=== PATIENT | female | born 1955 | race Caucasian/White ===

== ENCOUNTER → 2017-05-28 11:05 | Outpatient (CLI) | payer OTHER, SELFPAY ==
[2017-05-28 12:26] LABS: Absolute Lymphocyte Count 1.83 X10^3/ul (0.83-4.51); Absolute Neutrophil Count 3.4 X10^3/uL (2.0-7.7); Basophil# 0.02 X10^3/uL; Basophil% 0.3 % (0-1); Eosinophil# 0.16 X10^3/uL; Eosinophils% 2.8 % (0-5); Hematocrit 38.4 % (37-47); Hemoglobin 12.3 g/dl (12.0-15.0); Lymphocyte # 1.83 X10^3/ul (4.0); Lymphocyte % 31.8 % (19-41); Mean Corpuscular Hgb 28.9 pg (27.0-32.0); Mean Corpuscular Volume 90.4 fL (81-99); Mean Platelet Vol. 10.1 fl (6.2-12.0); Monocyte# 0.36 X10^3/uL; Monocyte% 6.3 % (0-10); Neutrophil # 3.38 X10^3/uL (2.7-7.7); Neutrophil % 58.6 % (47-70); Platelet Count 305 K/mm3 (150-450); RBC Distribution Width CV 13.3 % (11.6-14.6); RBC Distribution Width SD 43.5 fl (35.1-43.9); Red Blood Count 4.25 M/mm3 (4.2-5.4); White Blood Count 5.8 K/mm3 (4.4-11.0)
[2017-05-28 12:30] LABS: POSITIVE COUNT NO; POSITIVE DIFFERENTIAL NO; POSITIVE MORPHOLOGY NO
[2017-05-28 12:47] LABS: AST(SGOT) 21 U/L (15-37); Alanine Aminotransfer ALT/SGPT 30 U/L (13-56); Albumin, Serum 3.9 g/dL (3.2-5.0); Alkaline Phosphatase 104 U/L (45-117); Anion Gap 8 (5-15); BUN 14 mg/dL (7-18); BUN/Creat Ratio 17.9 RATIO (10-20); Calcium,Total 8.9 mg/dL (8.5-10.1); Chloride 99 mmol/L (98-107); Creatinine, Serum 0.78 mg/dL (0.55-1.02); EST Glomerular Filtration Rate 79 mL/min (>60); Est Glom Filt Rate - Afr Amer 95 mL/min (>60); Globulin 3.9 g/dL (2.2-4.2); Glucose 163 mg/dL (74-106); Potassium 3.9 mmol/L (3.5-5.1); Protein, Total 7.8 g/dL (6.4-8.2); Sodium Level 136 mmol/L (136-145)
== END ==
PROVIDERS: Family Provider Internal Medicine; PCP Internal Medicine; Visit Provider Internal Medicine Rheumatology
DX: M06.4 Inflammatory polyarthropathy (principal); R76.8 Other specified abnormal immunological findings in serum; M17.0 Bilateral primary osteoarthritis of knee; M75.41 Impingement syndrome of right shoulder; I10 Essential (primary) hypertension; E11.9 Type 2 diabetes mellitus without complications; E78.5 Hyperlipidemia, unspecified
CPT/HCPCS: 36415; 80053; 85025

== ENCOUNTER → 2017-11-16 08:47 | Outpatient (CLI) | payer OTHER, SELFPAY ==
[2017-11-16 11:03] LABS: Albumin, Serum 3.5 g/dL (3.2-5.0); BUN 12 mg/dL (7-18); BUN/Creat Ratio 16.4 RATIO (10-20); Creatinine, Serum 0.73 mg/dL (0.55-1.02); EST Glomerular Filtration Rate 85 mL/min (>60); Est Glom Filt Rate - Afr Amer 103 mL/min (>60); Glucose 103 mg/dL (74-106); Protein, Total 7.3 g/dL (6.4-8.2)
[2017-11-16 11:04] LABS: ALB/GLOB Ratio 0.9 RATIO (0.9-2.4); AST(SGOT) 28 U/L (15-37); Alanine Aminotransfer ALT/SGPT 31 U/L (13-56); Alkaline Phosphatase 91 U/L (45-117); Anion Gap 10 (5-15); Calcium,Total 8.6 mg/dL (8.5-10.1); Chloride 104 mmol/L (98-107); Globulin 3.8 g/dL (2.2-4.2); Potassium 3.9 mmol/L (3.5-5.1); Sodium Level 142 mmol/L (136-145)
[2017-11-16 12:38] LABS: Absolute Lymphocyte Count 1.38 X10^3/ul (0.83-4.51); Absolute Neutrophil Count 2.9 X10^3/uL (2.0-7.7); Basophil# 0.03 X10^3/uL; Basophil% 0.6 % (0-1); Eosinophil# 0.17 X10^3/uL; Eosinophils% 3.5 % (0-5); Hematocrit 35.5 % (37-47); Hemoglobin 11.2 g/dl (12.0-15.0); Lymphocyte # 1.38 X10^3/ul (4.0); Lymphocyte % 28.3 % (19-41); Mean Corp Hgb Conc 31.5 g/gl (32-36); Mean Corpuscular Hgb 28.1 pg (27.0-32.0); Mean Corpuscular Volume 89.2 fL (81-99); Mean Platelet Vol. 10.6 fl (6.2-12.0); Monocyte# 0.42 X10^3/uL; Monocyte% 8.6 % (0-10); Neutrophil # 2.88 X10^3/uL (2.7-7.7); Platelet Count 309 K/mm3 (150-450); RBC Distribution Width CV 13.6 % (11.6-14.6); RBC Distribution Width SD 44.7 fl (35.1-43.9); Red Blood Count 3.98 M/mm3 (4.2-5.4); White Blood Count 4.9 K/mm3 (4.4-11.0)
[2017-11-16 12:46] LABS: POSITIVE COUNT NO; POSITIVE DIFFERENTIAL NO; POSITIVE MORPHOLOGY NO
== END ==
PROVIDERS: Family Provider Internal Medicine; PCP Internal Medicine; Visit Provider Internal Medicine Rheumatology
DX: M06.4 Inflammatory polyarthropathy (principal); R76.8 Other specified abnormal immunological findings in serum; M17.0 Bilateral primary osteoarthritis of knee; M75.41 Impingement syndrome of right shoulder; I10 Essential (primary) hypertension; E11.9 Type 2 diabetes mellitus without complications; E78.5 Hyperlipidemia, unspecified
CPT/HCPCS: 36415; 80053; 85025

== ENCOUNTER → 2018-05-17 08:04 | Outpatient (CLI) | payer OTHER, SELFPAY ==
[2018-05-17 10:16] LABS: Absolute Lymphocyte Count 1.38 X10^3/ul (0.83-4.51); Absolute Neutrophil Count 3.6 X10^3/uL (2.0-7.7); Basophil# 0.05 X10^3/uL; Basophil% 0.9 % (0-1); Eosinophil# 0.15 X10^3/uL; Eosinophils% 2.6 % (0-5); Hematocrit 35.9 % (37-47); Hemoglobin 11.2 g/dl (12.0-15.0); Lymphocyte # 1.38 X10^3/ul (4.0); Lymphocyte % 24.3 % (19-41); Mean Corp Hgb Conc 31.2 g/gl (32-36); Mean Corpuscular Hgb 27.5 pg (27.0-32.0); Mean Corpuscular Volume 88.2 fL (81-99); Mean Platelet Vol. 10.3 fl (6.2-12.0); Monocyte# 0.44 X10^3/uL; Monocyte% 7.8 % (0-10); Neutrophil # 3.64 X10^3/uL (2.7-7.7); Neutrophil % 64.2 % (47-70); Platelet Count 302 K/mm3 (150-450); RBC Distribution Width CV 14.2 % (11.6-14.6); RBC Distribution Width SD 45.8 fl (35.1-43.9); Red Blood Count 4.07 M/mm3 (4.2-5.4); White Blood Count 5.7 K/mm3 (4.4-11.0)
[2018-05-17 10:21] LABS: POSITIVE COUNT NO; POSITIVE DIFFERENTIAL NO; POSITIVE MORPHOLOGY NO
[2018-05-17 10:41] LABS: ALB/GLOB Ratio 0.9 RATIO (0.9-2.4); AST(SGOT) 22 U/L (15-37); Alanine Aminotransfer ALT/SGPT 25 U/L (13-56); Albumin, Serum 3.7 g/dL (3.2-5.0); Alkaline Phosphatase 101 U/L (45-117); Anion Gap 11 (5-15); BUN 12 mg/dL (7-18); BUN/Creat Ratio 17.9 RATIO (10-20); Calcium,Total 8.8 mg/dL (8.5-10.1); Chloride 104 mmol/L (98-107); Creatinine, Serum 0.67 mg/dL (0.55-1.02); EST Glomerular Filtration Rate 94 mL/min (>60); Est Glom Filt Rate - Afr Amer 114 mL/min (>60); Globulin 3.9 g/dL (2.2-4.2); Glucose 143 mg/dL (74-106); Potassium 3.8 mmol/L (3.5-5.1); Protein, Total 7.6 g/dL (6.4-8.2); Sodium Level 141 mmol/L (136-145)
== END ==
PROVIDERS: Family Provider Internal Medicine; PCP Internal Medicine; Referring Provider Internal Medicine Rheumatology; Visit Provider Internal Medicine Rheumatology
DX: M06.4 Inflammatory polyarthropathy (principal); R76.8 Other specified abnormal immunological findings in serum; M17.0 Bilateral primary osteoarthritis of knee; M75.41 Impingement syndrome of right shoulder; I10 Essential (primary) hypertension; E11.9 Type 2 diabetes mellitus without complications; E78.5 Hyperlipidemia, unspecified
CPT/HCPCS: 36415; 80053; 85025

== ENCOUNTER → 2018-06-03 16:15 | Outpatient (CLI) | payer OTHER, SELFPAY ==
--- NOTE | 2018-06-03 16:17 | US_ITS ---
STUDY: RENAL ULTRASOUND - COMPLETE REASON FOR EXAM: Female, 62 years old. Difficulty voiding TECHNIQUE: Ultrasound evaluation of the kidneys was performed with real-time and static killian-scale imaging. COMPARISON: None. FINDINGS: RIGHT KIDNEY: Normal location of the right kidney, which is normal in size. The right kidney measures 12.6 x 4.8 x 5 cm. There is a normal cortex of the right kidney. The renal cortex measures 1.4 cm. There is no right renal mass or cyst. There are no right renal calculi. There is no right hydronephrosis. DISTAL RIGHT URETER: There is non-visualization of the distal right ureter. There is no demonstrated right ureterovesical junction calculus. There is a visualized right ureteral jet. LEFT KIDNEY: Normal location of the left kidney, which is normal in size. The left kidney measures 14.6 x 4.6 x 5.4 cm. There is a normal cortex of the left kidney. The renal cortex measures cm. There is no left renal mass or cyst. There does appear to be hypertrophied column of Kb which is normal developmental variant There are no left renal calculi. There is no left hydronephrosis. DISTAL LEFT URETER: There is non-visualization of the distal left ureter. There is no demonstrated left ureterovesical junction calculus. There is a visualized left ureteral jet. BLADDER: The distended urinary bladder has a volume of 329.75 ml. The empty urinary bladder has a volume of 20.9 ml. There is a normal wall thickness of the distended urinary bladder. There is a questionable nodule versus ureterocele on the left. This may be better assessed with cystoscopy or CT for further evaluation if clinically warranted There are no demonstrated bladder calculi. US/Kidney and Bladder IMPRESSION: Possible prominent column of Kb seen in left kidney which may be better assessed with CAT scan if clinically indicated Cannot exclude tiny left bladder mass versus ureterocele Electronically Signed: Frederick Reyna MD at 22:34 EST , Service support ,
== END ==
PROVIDERS: Family Provider Internal Medicine; PCP Internal Medicine; Referring Provider Urology; Visit Provider Urology
DX: R39.16 Straining to void (principal)
CPT/HCPCS: 76770

== ENCOUNTER 2018-07-20 17:30 | Emergency (ER) | payer OTHER, SELFPAY ==
[2018-07-20 17:33] VITALS: BP 193/92; PULSE 89; RESP 18; TEMP 36.7; O2SAT 98; BMI 32.3
[2018-07-20] MEDS: Diphth,Pertuss(Acell),Tet Vac 0.5 ML Vial IM (18:07)
--- NOTE | 2018-07-20 19:04 | ED.VISSUMM ---
- ER Visit Summary Date of Service: 07/20/18 Chief Complaint: Left hand laceration History of Present Illness: The patient is a 63 F lacerated dorsal left hand 1530 while using head tremors. Tetanus in 2011. No loss of function. Baby aspirin. Bleeding controlled. No other injuries. Physical Examination: General: Alert and oriented ?3, no acute distress HEENT: Normocephalic, atraumatic. Moist mucosa membranes Neck: supple, nontender. Cardiovascular: Regular rate and rhythm, no murmurs Respiratory: Normal breath sounds, symmetric, no distress Abdomen: Soft, nontender, nondistended Extremities: Nontender, no edema, pulses intact ?4. Full range of motion of all phalanges left hand. Neuro: no focal neurological deficits. Skin: To have sending partial laceration left dorsal first webspace with subcu exposure. No foreign bodies. No active bleeding. Test Results: [] Emergency Department Course and Treatment: Tetanus updated. Laceration repaired using a total of 4, 5-0 nylon sutures. Good approximation. Wound care discussed. Sutures removed as an outpatient next 10-14 days. All questions were answered. Treatment Plan: [] Disposition: Discharge Impression: 1. Left hand laceration status post repair 2. Tetanus update This note was generated with [employer] dictation software. It may contain incorrect words, spelling, and punctuation that were not noted in review of the chart prior to signing ED Disposition - Plan for ED Patient: Disposition: Home or Assisted Living Diagnosis: Laceration of left hand Instructions: ED Laceration Hand Referrals: Kelly Borden MD [Primary Care Provider] - 10-14 Days suture removal
[2018-07-20] MEDS: BACITRACIN 15 GM Tube 1 APPLIC TOPICAL (19:25)
[2018-07-20 19:26] VITALS: BP 165/76; PULSE 82; RESP 18; O2SAT 97
== END 2018-07-20 19:28 | disposition home or self-care (01) ==
PROVIDERS: Emergency Provider Emergency Medicine; Family Provider Internal Medicine; PCP Internal Medicine
DX: S61.412A Laceration without foreign body of left hand, initial encounter (principal); W26.8XXA Contact with other sharp object(s), not elsewhere classified, initial encounter; Y93.89 Activity, other specified; Y92.9 Unspecified place or not applicable; I10 Essential (primary) hypertension; E11.9 Type 2 diabetes mellitus without complications; M06.9 Rheumatoid arthritis, unspecified; Z79.82 Long term (current) use of aspirin; Z79.4 Long term (current) use of insulin; Z79.84 Long term (current) use of oral hypoglycemic drugs; Z79.899 Other long term (current) drug therapy
CPT/HCPCS: 12001; 90715; 99285

== ENCOUNTER → 2018-11-24 08:25 | Outpatient (CLI) | payer OTHER, SELFPAY ==
[2018-11-24 10:04] LABS: Absolute Lymphocyte Count 1.43 X10^3/uL (0.83-4.51); Absolute Neutrophil Count 3.6 X10^3/uL (2.0-7.7); Basophil# 0.05 X10^3/uL; Basophil% 0.9 % (0-1); Eosinophil# 0.22 X10^3/uL; Eosinophils% 3.8 % (0-5); Hematocrit 35.1 % (37-47); Hemoglobin 11.1 g/dL (12.0-15.0); Lymphocyte # 1.43 X10^3/ul (4.0); Lymphocyte % 24.6 % (19-41); Mean Corp Hgb Conc 31.6 g/dL (32-36); Mean Corpuscular Hgb 27.3 pg (27.0-32.0); Mean Corpuscular Volume 86.2 fL (81-99); Mean Platelet Vol. 10.3 fl (6.2-12.0); Monocyte# 0.47 X10^3/uL; Monocyte% 8.1 % (0-10); NRBC Flagged by Analyzer 0 % (0-5); Neutrophil # 3.63 X10^3/uL (2.7-7.7); Neutrophil % 62.4 % (47-70); Platelet Count 346 K/mm3 (150-450); RBC Distribution Width CV 14.8 % (11.6-14.6); RBC Distribution Width SD 46.7 fl (35.1-43.9); Red Blood Count 4.07 M/mm3 (4.2-5.4); White Blood Count 5.8 K/mm3 (4.4-11.0)
[2018-11-24 10:32] LABS: ALB/GLOB Ratio 0.9 RATIO (0.9-2.4); AST(SGOT) 20 U/L (15-37); Alanine Aminotransfer ALT/SGPT 31 U/L (13-56); Albumin, Serum 3.8 g/dL (3.2-5.0); Alkaline Phosphatase 102 U/L (45-117); Anion Gap 8 (5-15); BUN 13 mg/dL (7-18); BUN/Creat Ratio 17.3 RATIO (10-20); Chloride 101 mmol/L (98-107); Creatinine, Serum 0.75 mg/dL (0.55-1.02); EST Glomerular Filtration Rate 82 mL/min (>60); Est Glom Filt Rate - Afr Amer 100 mL/min (>60); Globulin 4.1 g/dL (2.2-4.2); Glucose 152 mg/dL (74-106); Potassium 4.1 mmol/L (3.5-5.1); Protein, Total 7.9 g/dL (6.4-8.2); Sodium Level 138 mmol/L (136-145)
== END ==
PROVIDERS: Family Provider Internal Medicine; PCP Internal Medicine; Referring Provider Internal Medicine Rheumatology; Visit Provider Internal Medicine Rheumatology
DX: M06.4 Inflammatory polyarthropathy (principal); R76.8 Other specified abnormal immunological findings in serum; M17.0 Bilateral primary osteoarthritis of knee; M75.41 Impingement syndrome of right shoulder; I10 Essential (primary) hypertension; E11.9 Type 2 diabetes mellitus without complications; E78.5 Hyperlipidemia, unspecified
CPT/HCPCS: 36415; 80053; 85025

== ENCOUNTER → 2019-05-29 07:24 | Outpatient (CLI) | payer OTHER, SELFPAY ==
[2019-05-29 10:19] LABS: Absolute Lymphocyte Count 1.49 X10^3/uL (0.83-4.51); Absolute Neutrophil Count 3.1 X10^3/uL (2.0-7.7); Basophil# 0.05 X10^3/uL; Eosinophil# 0.16 X10^3/uL; Eosinophils% 3.1 % (0-5); Hematocrit 34.4 % (37-47); Hemoglobin 10.9 g/dL (12.0-15.0); Lymphocyte # 1.49 X10^3/ul (4.0); Lymphocyte % 28.4 % (19-41); Mean Corp Hgb Conc 31.7 g/dL (32-36); Mean Corpuscular Volume 85.1 fL (81-99); Mean Platelet Vol. 10.4 fl (6.2-12.0); Monocyte# 0.43 X10^3/uL; Monocyte% 8.2 % (0-10); NRBC Flagged by Analyzer 0 % (0-5); Neutrophil % 59.1 % (47-70); Platelet Count 323 K/mm3 (150-450); RBC Distribution Width CV 14.7 % (11.6-14.6); RBC Distribution Width SD 45.6 fl (35.1-43.9); Red Blood Count 4.04 M/mm3 (4.2-5.4); White Blood Count 5.2 K/mm3 (4.4-11.0)
[2019-05-29 10:46] LABS: AST(SGOT) 20 U/L (15-37); Alanine Aminotransfer ALT/SGPT 26 U/L (13-56); Albumin, Serum 3.7 g/dL (3.2-5.0); Alkaline Phosphatase 85 U/L (45-117); Anion Gap 5 (5-15); BUN 9 mg/dL (7-18); BUN/Creat Ratio 11.6 RATIO (10-20); Calcium,Total 9.3 mg/dL (8.5-10.1); Chloride 107 mmol/L (98-107); Creatinine, Serum 0.77 mg/dL (0.55-1.02); EST Glomerular Filtration Rate 80 mL/min (>60); Est Glom Filt Rate - Afr Amer 96 mL/min (>60); Globulin 3.8 g/dL (2.2-4.2); Glucose 109 mg/dL (74-106); Potassium 3.7 mmol/L (3.5-5.1); Protein, Total 7.5 g/dL (6.4-8.2); Sodium Level 141 mmol/L (136-145)
== END ==
PROVIDERS: PCP Internal Medicine; Referring Provider Internal Medicine Rheumatology; Visit Provider Internal Medicine Rheumatology
DX: M06.4 Inflammatory polyarthropathy (principal); R76.8 Other specified abnormal immunological findings in serum; M17.0 Bilateral primary osteoarthritis of knee; M75.41 Impingement syndrome of right shoulder; I10 Essential (primary) hypertension; E11.9 Type 2 diabetes mellitus without complications; E78.5 Hyperlipidemia, unspecified
CPT/HCPCS: 36415; 80053; 85025

== ENCOUNTER → 2019-11-23 07:37 | Outpatient (CLI) | payer OTHER, SELFPAY ==
[2019-11-23 10:05] LABS: Absolute Lymphocyte Count 1.88 X10^3/uL (0.83-4.51); Absolute Neutrophil Count 4.7 X10^3/uL (2.0-7.7); Basophil# 0.05 X10^3/uL; Basophil% 0.7 % (0-1); Eosinophil# 0.16 X10^3/uL; Eosinophils% 2.1 % (0-5); Hematocrit 41.7 % (37-47); Hemoglobin 13.5 g/dL (12.0-15.0); Lymphocyte # 1.88 X10^3/ul (4.0); Lymphocyte % 24.8 % (19-41); Mean Corp Hgb Conc 32.4 g/dL (32-36); Mean Corpuscular Hgb 29.8 pg (27.0-32.0); Mean Corpuscular Volume 92.1 fL (81-99); Mean Platelet Vol. 10.5 fl (6.2-12.0); Monocyte# 0.72 X10^3/uL; Monocyte% 9.5 % (0-10); NRBC Flagged by Analyzer 0 % (0-5); Neutrophil # 4.74 X10^3/uL (2.7-7.7); Neutrophil % 62.5 % (47-70); Platelet Count 353 K/mm3 (150-450); RBC Distribution Width CV 13.6 % (11.6-14.6); RBC Distribution Width SD 46.4 fl (35.1-43.9); Red Blood Count 4.53 M/mm3 (4.2-5.4); White Blood Count 7.6 K/mm3 (4.4-11.0)
[2019-11-23 10:29] LABS: AST(SGOT) 21 U/L (15-37); Alanine Aminotransfer ALT/SGPT 40 U/L (13-56); Alkaline Phosphatase 96 U/L (45-117); Anion Gap 6 (5-15); BUN 16 mg/dL (7-18); Calcium,Total 9.2 mg/dL (8.5-10.1); Chloride 97 mmol/L (98-107); EST Glomerular Filtration Rate 76 mL/min (>60); Est Glom Filt Rate - Afr Amer 93 mL/min (>60); Globulin 4.2 g/dL (2.2-4.2); Glucose 143 mg/dL (74-106); Potassium 3.9 mmol/L (3.5-5.1); Protein, Total 8.2 g/dL (6.4-8.2); Sodium Level 137 mmol/L (136-145)
== END ==
PROVIDERS: PCP Internal Medicine; Referring Provider Internal Medicine Rheumatology; Visit Provider Internal Medicine Rheumatology
DX: M06.4 Inflammatory polyarthropathy (principal); R76.8 Other specified abnormal immunological findings in serum; M17.0 Bilateral primary osteoarthritis of knee; M75.41 Impingement syndrome of right shoulder; I10 Essential (primary) hypertension; E11.9 Type 2 diabetes mellitus without complications; E78.5 Hyperlipidemia, unspecified
CPT/HCPCS: 36415; 80053; 85025

== ENCOUNTER → 2020-05-23 10:19 | Outpatient (CLI) | payer MEDICARE, SELFPAY ==
[2020-05-23 11:52] LABS: Absolute Lymphocyte Count 1.57 X10^3/uL (0.83-4.51); Absolute Neutrophil Count 3.8 X10^3/uL (2.0-7.7); Basophil# 0.04 X10^3/uL; Basophil% 0.7 % (0-1); Eosinophil# 0.08 X10^3/uL; Eosinophils% 1.3 % (0-5); Hematocrit 39.4 % (37-47); Hemoglobin 12.5 g/dL (12.0-15.0); Lymphocyte # 1.57 X10^3/ul (4.0); Lymphocyte % 26.5 % (19-41); Mean Corp Hgb Conc 31.7 g/dL (32-36); Mean Corpuscular Hgb 28.9 pg (27.0-32.0); Mean Corpuscular Volume 91.2 fL (81-99); Mean Platelet Vol. 10.4 fl (6.2-12.0); Monocyte# 0.43 X10^3/uL; Monocyte% 7.3 % (0-10); NRBC Flagged by Analyzer 0 % (0-5); Platelet Count 315 K/mm3 (150-450); RBC Distribution Width CV 12.8 % (11.6-14.6); RBC Distribution Width SD 43.1 fl (35.1-43.9); Red Blood Count 4.32 M/mm3 (4.2-5.4); White Blood Count 5.9 K/mm3 (4.4-11.0)
[2020-05-23 12:19] LABS: AST(SGOT) 22 U/L (15-37); Alanine Aminotransfer ALT/SGPT 41 U/L (13-56); Albumin, Serum 3.9 g/dL (3.2-5.0); Alkaline Phosphatase 95 U/L (45-117); Anion Gap 5 (5-15); BUN 9 mg/dL (7-18); BUN/Creat Ratio 12.5 RATIO (10-20); Calcium,Total 9.1 mg/dL (8.5-10.1); Chloride 105 mmol/L (98-107); Creatinine, Serum 0.72 mg/dL (0.55-1.02); EST Glomerular Filtration Rate 86 mL/min (>60); Est Glom Filt Rate - Afr Amer 105 mL/min (>60); Globulin 3.8 g/dL (2.2-4.2); Glucose 164 mg/dL (74-106); Potassium 3.8 mmol/L (3.5-5.1); Protein, Total 7.7 g/dL (6.4-8.2); Sodium Level 138 mmol/L (136-145)
== END ==
PROVIDERS: PCP Internal Medicine; Referring Provider Internal Medicine Rheumatology; Visit Provider Internal Medicine Rheumatology
DX: M06.4 Inflammatory polyarthropathy (principal); R76.8 Other specified abnormal immunological findings in serum; M17.0 Bilateral primary osteoarthritis of knee; M75.41 Impingement syndrome of right shoulder; I10 Essential (primary) hypertension; E11.9 Type 2 diabetes mellitus without complications; E78.5 Hyperlipidemia, unspecified
CPT/HCPCS: 36415; 80053; 85025

== ENCOUNTER → 2020-11-02 08:10 | Outpatient (CLI) | payer MEDICARE, OTHER, SELFPAY ==
--- NOTE | 2020-11-02 08:21 | MRI_ITS ---
STUDY: MRI LEFT ANKLE WITHOUT CONTRAST REASON FOR EXAM: Female, 65 years old. PERONEAL TENDON TEAR LEFT, PERONEUS SYNDROME, CUBOID FRACTURE TECHNIQUE: Standardized fat and water weighted pulse sequences were obtained in all 3 orthogonal planes. COMPARISON: None. FINDINGS: Normal subcutis adipose space. Small subcortical cysts are present in the undersurface of the lateral malleolus. A tiny ankle joint effusion is also visualized. The second TMT articulation is moderately narrow with cortical spurring and subchondral cystic changes. The Achilles tendon is moderately to significantly thickened just beneath the muscular tendinous junction down to the calcaneal insertion site. There is a 2 cm large complete tear of the peroneus longus tendon beneath the cuboid bone. I see no evidence of an acute cuboid fracture or fracture line of the cuboid. Normal peroneal brevis tendon. Normal posterior tibialis tendon. Normal flexor digitorum longus tendon. Normal flexor hallucis longus tendon. Normal tibialis anterior tendon. Normal extensor hallucis longus tendon. Normal extensor digitorum longus tendons. Normal plantar fascia. Normal plantar calcaneal tubercles. Normal intrinsic muscles of the rearfoot. Normal distal tibiofibular syndesmotic ligamentous complex. Normal lateral ligamentous complex. Normal subtalar ligaments and sinus tarsi. Normal deltoid ligamentous complexes. Normal plantar calcaneonavicular (spring) ligament. Normal tibiotalar articulation. Normal talar dome. Normal subtalar articulations. Normal talonavicular articulation. Normal calcaneocuboid articulation. Normal navicular-cuneiform articulations. MRI/Lower Ext Joint Only (Routine) IMPRESSION: 1. There is a 2 cm large complete tear of the peroneus longus tendon beneath the cuboid bone. Normal peroneal brevis tendon. 2. Moderate Achilles tendinosis Electronically Signed: Marcellus Quach MD at 20:39 EDT , Service support ,
== END | disposition home or self-care (01) ==
LOC: MRI 08:12
PROVIDERS: PCP Internal Medicine; Referring Provider Podiatrist; Visit Provider Podiatrist
DX: M76.72 Peroneal tendinitis, left leg (principal); M79.672 Pain in left foot; M77.52 Other enthesopathy of left foot and ankle; S92.215A Nondisplaced fracture of cuboid bone of left foot, initial encounter for closed fracture
CPT/HCPCS: 73721

== ENCOUNTER → 2020-11-21 09:33 | Outpatient (CLI) | payer MEDICARE, OTHER, SELFPAY ==
[2020-11-21 12:29] LABS: Absolute Lymphocyte Count 1.63 X10^3/uL (0.83-4.51); Absolute Neutrophil Count 4.2 X10^3/uL (2.0-7.7); Basophil# 0.06 X10^3/uL; Basophil% 0.9 % (0-1); Eosinophil# 0.12 X10^3/uL; Eosinophils% 1.8 % (0-5); Hemoglobin 12.5 g/dL (12.0-15.0); Lymphocyte # 1.63 X10^3/ul (0.83-4.51); Lymphocyte % 24.8 % (19-41); Mean Corp Hgb Conc 32.9 g/dL (32-36); Mean Corpuscular Hgb 30.2 pg (27.0-32.0); Mean Corpuscular Volume 91.8 fL (81-99); Mean Platelet Vol. 10.6 fl (6.2-12.0); Monocyte# 0.61 X10^3/uL; Monocyte% 9.3 % (0-10); NRBC Flagged by Analyzer 0 % (0-5); Neutrophil # 4.15 X10^3/uL (2.7-7.7); Platelet Count 278 K/mm3 (150-450); RBC Distribution Width CV 13.1 % (11.6-14.6); Red Blood Count 4.14 M/mm3 (4.2-5.4); White Blood Count 6.6 K/mm3 (4.4-11.0)
[2020-11-21 12:46] LABS: AST(SGOT) 21 U/L (15-37); Alanine Aminotransfer ALT/SGPT 38 U/L (13-56); Albumin, Serum 3.8 g/dL (3.2-5.0); Alkaline Phosphatase 96 U/L (45-117); Anion Gap 6 (5-15); BUN 7 mg/dL (7-18); BUN/Creat Ratio 9.9 RATIO (10-20); Calcium,Total 9.2 mg/dL (8.5-10.1); Chloride 102 mmol/L (98-107); EST Glomerular Filtration Rate 88 mL/min (>60); Est Glom Filt Rate - Afr Amer 107 mL/min (>60); Globulin 3.7 g/dL (2.2-4.2); Glucose 132 mg/dL (74-106); Potassium 3.7 mmol/L (3.5-5.1); Protein, Total 7.5 g/dL (6.4-8.2); Sodium Level 139 mmol/L (136-145)
== END ==
PROVIDERS: PCP Internal Medicine; Referring Provider Internal Medicine Rheumatology; Visit Provider Internal Medicine Rheumatology
DX: M06.4 Inflammatory polyarthropathy (principal); R76.8 Other specified abnormal immunological findings in serum; M17.0 Bilateral primary osteoarthritis of knee; M75.41 Impingement syndrome of right shoulder; I10 Essential (primary) hypertension; E11.9 Type 2 diabetes mellitus without complications; E78.5 Hyperlipidemia, unspecified
CPT/HCPCS: 36415; 80053; 85025

== ENCOUNTER 2020-12-06 11:31 | Day surgery (SDC) | payer MEDICARE, OTHER, SELFPAY ==
--- NOTE | 2020-12-06 | BON_PTH ---
PATIENT: JOYCE KELSEY LOC: [facility] U#:[id number] AGE/SX: 65/F ROOM: RE12/06/[address]: Dr. Arcelia Edward DPM : 1955 BED: DIS: 12/06/2020 SPEC #: [id number] RECD: 12/06/20 15:35 STATUS: DODIE REKelsi #: [id number] GURU: 12/06/20 00:[address]: Arcelia Edward DEPT: SURGICAL PATHOLOGY RECD BY: Nomi Slade ENTERED: 12/09/20 08:11 SP TYPE: Bone OTHR DR: Dr. Kelly Borden MD Tissues: Foot, NOS Procedures: Decalcification bone/plaque Surgery Specimen Level III HEADER OPERATION: Lower extremity repair of peroneus longus tendon tear PRE-OP DIAGNOSIS: Left lower extremity peroneus longus tendon tear TISSUE SUBMITTED: Accessory bone of left foot MICROSCOPIC DIAGNOSIS Accessory bone left foot: A piece of bone with reactive changes. Fragments of dense fibroconnective tissue and fibroadipose tissue with reactive changes. GERALD:tianna 12/11/2020 MICROSCOPIC DESCRIPTION Slides are reviewed. GROSS DESCRIPTION Received in fixative is one container labeled with the patient's name and designated accessory bone of left foot. The specimen consists of multiple irregular fragments of bone and soft tissue that in aggregate measure 2.5 x 1.5 x 0.4 cm. The entire specimen is submitted in two cassettes as follows: 1 - soft tissue, 2 - bone after decalcification. / GERALD:tianna 12/09/20 TC:5 CPT: 42570, 25712
[2020-12-06 11:51] VITALS: BP 145/63; PULSE 75; RESP 16; TEMP 36.4; O2SAT 99; BMI 30.9
[2020-12-06] MEDS: Lactated Ringers 1,000 ML 100 ML IV (12:06)
[2020-12-06 12:16] LABS: Bedside Glucose 233 mg/dL (70-110)
--- NOTE | 2020-12-06 12:49 | RAD_ITS ---
STUDY: X-RAY - LEFT FOOT CLINICAL: Female, 65 years old. Repair of peroneal longus tendon with possible bone excision. TECHNIQUE: 2 intraoperative view(s) of the foot. COMPARISON: MRI of the left ankle and hindfoot, 11/02/2020. FINDINGS: Normal talus and tarsal bones. There is a plantar spur along the underside of the normal calcaneus. Normal visualized subtalar, talonavicular, calcaneocuboid, tarsal and tarsometatarsal articulations. Normal visualized metatarsi. The soft tissue structures are unremarkable. Please refer to the operative report for further details. RAD/Foot 2 Views IMPRESSION: Intraoperative images of the hindfoot. Electronically Signed: Domenico Moreno DO at 19:17 EDT Tel [phone], Service support ,
[2020-12-06] MEDS: Cefazolin 2 GM in 0.9% Normal Saline 100 ML IV (12:54)
[2020-12-06] MEDS: Bupivacaine Mpf 0.5% 30 ML VIAL (13:30)
[2020-12-06] MEDS: Lidocaine 1% (30 ml sdv) 30 ML Vial (13:30)
--- NOTE | 2020-12-06 14:34 | OP.PCM_ITS ---
Problems Associated Problem List Diagnoses (1) Pain in left foot: (2) Peroneal tendon rupture: (3) Peroneal tendinitis, left leg: (4) Os peroneum syndrome of left foot: Report of Operation Date of Procedure: 12/06/20 Pre-Operative Diagnosis: 1. Os peroneum left foot with fracture 2. Peroneus longus tendon tear (rupture) Post-Operative Diagnosis: 1. Os peroneum left foot with fracture 2. Peroneus longus tendon tear (rupture), left Surgery/Procedure Performed:: 1. Excision of fractured os peroneum accessory bone, left foot 2. Direct repair of peroneus longus tendon, left 3. Left synovectomy left peroneus longus tendon Description of Surgical Findings:: Hemostasis: Well-padded pneumatic left thigh tourniquet, 315 mmHg, 45 minutes Materials: 3-0 Vicryl, 4-0 nylon, 2-0 nylon Complications: None Specimens: Sent to pathology The patient tolerated the procedure and anesthesia well. The patient was transported to the PACU with vital signs stable and vascular status intact to the surgical limb. To ice and elevate for pain and inflammation management. Postoperative x-rays were reviewed prior to leaving the operating room demonstrates excision of fracture fragment of the os peroneum. No additional acute injuries are noted or retained foreign bodies. Postoperative orders were entered electronically. Surgeon: Arcelia Edward Type of Anesthesia: General and Local (Preoperative: One-to-one mixture of 1% lidocaine plain and 0.5% Marcaine plain administered in typical left ankle block fashion (20 cc). Postoperative: Same mixture administered and local infiltrative manner, 8 cc) Specimen's removed: Os peroneum, left foot (accessory bone) Estimated Blood Loss (mL): <50 mL Description of Procedure: Indications: This 65-year-old female with significant past medical history of diabetes (insulin-dependent) and hypertension has been struggling with peroneal tendinitis and discomfort over the past several months. More recently she reports inability to stepdown and has significant pain localized to the outside of her foot with increased swelling. Comparative x-rays demonstrated a fractured proximal pole of the os peroneum now with gapping compared to the distal pole. MRI confirms that there is a complete tear of the peroneus longus tendon adjacent to the cuboid bone that is involved in this accessory bone. The peroneus brevis appeared to be intact. Her neurovascular status is intact with palpable pulses and epicritic sensation intact to light touch. She does not have any skin tenting or fracture blisters. She is unable to perform resisted or passive eversion without discomfort. She has been immobilized in a walking boot and has limited her activity in the meantime. Preoperative H&P were reviewed including his diagnostic data; Dr. Borden. There is no gross abnormalities noted with labs for preoperative EKG. It is noted her hemoglobin A1c was 7.4%. Preoperative indications, planned procedure, benefits, risk, anticipated healing time and management were reviewed. The patient understands and elects proceed with surgery at this time. No guarantees were made. The patient understands risk and complications include but are not limited to following: pain, swelling, scarring, need for further surgery, tendon contracture, transfer lesion, hardware failure, arthritis, need for further surgery, delayed or nonhealing, infection, blood clot, allergic reaction, loss of limb, function, or life. The informed surgical limb and consent were signed for repair of peroneus longus tendon and excision of this accessory bone with potential tendon transfer with anchor and anastomosis to the peroneus brevis tendon. I answered all the patient's questions. Procedure in detail: Patient was transported to the operating room via cart and placed on the operating room table in lateral decubitus position in a well-padded manner with her leg positioned for good exposure. Final verification the patient, surgery, limb designation and planned procedure was performed. Anesthesia team initiated general anesthesia. The podiatry team administered a local anesthetic. A well- padded pneumatic left thigh tourniquet was placed. The left lower extremity was prepped and draped in the usual aseptic manner. Surgery proceeded as the following: An Esmarch bandage was used to exsanguinate the limb and the tourniquet was inflated at this time. A curvilinear incision was made distal to the posterior lateral fibula and extended down to the fifth metatarsal base through the skin. Blunt dissection was performed down to the peroneal sheath and care was taken to identify, protect, and retract all neurovascular structures at this point and throughout the remainder of surgery. A rent was made into the peroneal sheath and the peroneus longus tendon was immediately identified. There was a mild to moderate amount of tenosynovitis and a dell was palpated at the peroneus longus tendon adjacent to the cuboid which corresponded with the ruptured area and the fractured os peroneum was also directly palpated. This was carefully scalloped out with a scalpel, and sent to pathology. The remaining tendon edges were minimally debrided to allow healthy bleeding tissue and they were reapproximated without tension in a resting position. This was secured with a direct repair technique utilizing a locking end to end repair 3-0 nylon technique and additional tubularization. Solid repair was achieved and it is noted the peroneal tendons maintain their excursion. The adjacent peroneus brevis tendon was further evaluated and there was no tear or tenosynovitis appreciated. Saline irrigation was performed. The peroneal tendon sheath was gently reapproximated with vicryl suture. The tourniquet was deflated and brisk capillary refill time was noted to all digits of the left foot. No pulsatile bleeding was noted and this was controlled with minimal electrocauterization and direct pressure. Deep closure was next performed with Vicryl and the skin was reapproximated utilizing simple and horizontal mattress techniques. A dressing consisting of Adaptic soaked in Betadine, 4 x 4 gauze, abdominal pads, and Kerlix was applied. Next, a well-padded posterior mold splint was applied with the foot in neutral gentle plantarflexion and eversion to take tension off of this recently repaired tendon site. After procedure: The patient tolerated the procedure and anesthesia well. The patient was transported to the PACU with vital signs stable and vascular status intact to the surgical limb. To ice and elevate for pain and inflammation management. Postoperative x-rays were reviewed prior to leaving the operating room as noted. To maintain a non weightbearing status with spint and dressing clean, dry and intact until follow up next week. Postoperative orders were entered elec tronically.The patient will [facility]. She will continue to control her glucose levels and I also recommend Carroll supplementation to optimize healing. Arcelia Edward DPM, [facility] Grafts/Implants Used: none Complications none Admit VTE Documentation VTE Present on Admission: No VTE Mechan Device Prophylaxis: SCD's VTE Pharm Prophylaxis ordered?: No Reason prophylaxis not ordered:: Procedure Not Indicated
--- NOTE | 2020-12-06 14:36 | EX.PCM.DISCH ---
Discharge Instructions Procedure Narrative: repair of left peroneus longus tendon with excision of accessory bone that was fractured Diet Discharge Diet: No restrictions Activity Discharge Activity: May Not Drive and May Shower (only if you use a shower protection bag) Ice area for (Minutes): 15 Weight Bearing Status: No weight bearing Keep extremity elevated above heart level: Left Leg Dressing / Incision Call your doctor if your incision/area has: Continuous Slow Oozing, Sudden Increased Bleeding, Increased Pain/ Swelling, Increased Redness, Foul Smelling Discharge and Swelling at the incision site Call your doctor if you observe: Numbness or Tingling, Swelling in the ankles, Calf discomfort and Uncontrolled pain Change Dressing in: leave in place till F/U Cleanse incision/area with: Keep Dressing Clean & Dry Additional Dressing/Incision Instructions:: apply ice pack no more than 15 min each hour behind the knee and not directly to the surgical site Follow Up Care Please Follow Up With: Arcelia Edward DPM When: [facility]; call [phone] if questions or concerns Test Results: Test results from this visit will be discussed in further detail at your follow-up appointment, if applicable. Discharge Plan Admission Attending Provider: Arcelia Edward Primary Care Provider: Kelly Borden Discharge Orders/Prescriptions Prescriptions: New hydrocodone-acetaminophen 5-325 mg tablet 1 tab PO Q6H PRN (Reason: pain) 7 Days Qty: 42 RF: 0 No Action multivitamin [Daily Multiple] 1 EACH tablet 1 ea PO DAILY RF: 0 metformin 500 MG tablet 1.5 tab PO BID RF: 0 atenolol 25 tablet 25 mg PO DAILY RF: 0 aspirin [Aspir-81] 81 MG tablet,delayed release (DR/EC) 81 mg PO DAILY RF: 0 calcium carbonate 600 MG tablet 600 mg PO DAILY RF: 0 losartan 25 MG tablet 25 mg PO QHS RF: 0 omeprazole 20 capsule,delayed release(DR/EC) 20 mg PO DAILY RF: 0 pravastatin 20 MG tablet 20 mg PO QHS RF: 0 hydroxychloroquine 200 MG tablet 200 mg PO BIDCM RF: 0 glipizide 5 tablet 2 tab PO BID RF: 0 cholecalciferol (vitamin D3) [Vitamin D3] 1,000 UNIT tablet 1,000 unit PO DAILY RF: 0 Basaglar KwikPen U-100 Insulin 100 UNIT/ML insulin pen 0 - 24 unit SQ QHS PRN PRN (Reason: HYPERGLYCEMIA) RF: 0 Referrals / Follow Up: Kelly Borden MD [Primary Care Provider] - Disposition Disposition (needs filled in before D/C Order can be placed): Home, Self Care
[2020-12-06 14:45] VITALS: BP 123/76; BP 145/63; PULSE 77; RESP 16; TEMP 36.2; O2SAT 93
[2020-12-06 15:00] VITALS: BP 134/72; BP 145/63; PULSE 77; RESP 16; O2SAT 93
--- NOTE | 2020-12-06 15:00 | RAD_ITS ---
STUDY: X-RAY - LEFT FOOT CLINICAL: Female, 65 years old. Status post fracture of the os peroneum. TECHNIQUE: 3 view(s) of the foot. COMPARISON: Left foot, 12/06/2020. MRI of the left hindfoot, 11/02/2020. FINDINGS: There are enthesophytes at the insertions of the Achilles tendon and plantar aponeurosis upon an otherwise normal calcaneus. Normal talus and tarsal bones. Arthrosis of the visualized subtalar, talonavicular, calcaneocuboid, tarsal and tarsometatarsal articulations. Normal metatarsi. Normal metatarsophalangeal joint of the great toe. Normal tibial and fibular sesamoid bones. Normal interphalangeal joint of the great toe. Normal phalanges of the great toe. Normal second through fifth metatarsophalangeal joints. Normal interphalangeal joints and phalanges of the lesser toes. The soft tissue structures are unremarkable. There is a semiradiopaque splint along the posterior aspect of the leg and plantar aspect of the foot. RAD/Foot min 3 Views IMPRESSION: Normal x-ray examination of the foot. Electronically Signed: Domenico Moreno DO at 19:21 EDT Tel [phone], Service support ,
[2020-12-06 15:15] VITALS: BP 140/78; BP 145/63; PULSE 78; RESP 16; O2SAT 94
[2020-12-06 15:27] VITALS: BP 145/63; BP 149/83; PULSE 78; RESP 16; TEMP 36.1; O2SAT 93
[2020-12-06 16:12] VITALS: BP 142/76; BP 145/63; PULSE 78; RESP 16; TEMP 36.3; O2SAT 93
== END 2020-12-06 16:33 | disposition home or self-care (01) ==
LOC: SDC 11:32 → AC 11:34
PROVIDERS: PCP Internal Medicine; Referring Provider Podiatrist; Visit Provider Podiatrist
PROC: (CPT 28200; principal; 2020-12-06 12:45)
DX: M76.72 Peroneal tendinitis, left leg (principal); S86.312D Strain of muscle(s) and tendon(s) of peroneal muscle group at lower leg level, left leg, subsequent encounter; S92.812D Other fracture of left foot, subsequent encounter for fracture with routine healing; X58.XXXD Exposure to other specified factors, subsequent encounter; E11.9 Type 2 diabetes mellitus without complications; I10 Essential (primary) hypertension; K21.9 Gastro-esophageal reflux disease without esophagitis; E55.9 Vitamin D deficiency, unspecified; K58.0 Irritable bowel syndrome with diarrhea; E78.5 Hyperlipidemia, unspecified; Q74.2 Other congenital malformations of lower limb(s), including pelvic girdle; Z79.4 Long term (current) use of insulin
CPT/HCPCS: 01470; 28200; 73620; 73630; 76000; 82962; 88304; 88305; 88311; J7120; J2405

== ENCOUNTER 2021-03-20 12:00 | Outpatient (RCR) | payer MEDICARE, OTHER, SELFPAY ==
--- NOTE | 2021-02-06 11:41 | HP.PTEVAL ---
Patient's Visit Information JOYCE KELSEY is a 65 year old F referred to Physical Therapy by Dr. Arcelia Edward, DPM with a diagnosis of LEFT EXCSION OF PERNEUM FRACTURE WITH REPAIR OF PERONEAL TENDON RUPTURE. Date of Evaluation: 02/05/21 Physical Therapist: Oral Zamarripa, PT, Cert MDT, OCS - Visit Plan Frequency: 2-3x /Week Duration: 8-12 WEEKS Plan: PATIENT USING KNEELING WALKER ,OKAY 50% WITH CAM BOOT WITH FWW. PT INTERVETION GAIT TRAINING WITH PROGRESSION OF WB ,BALANCE TRAINING,ANKLE ROM ,PROGRESS TO STRENGTH ANKLE AND PROPRIOCEPTION ERICK ,MODALTIES PRN - Subjective This 65 y/o female presents to physical therapy with left excision fracture with repair of peroneal tendon rupture on December [address] Edward at [facility] outpatient thus d/c DOS with scooter and splint with NWB LLE. Then ~ 3 weeks to CAM boot. Seen recently on 01/30/21 with PWB 50% . Patient has been using kneeling walker and hasn't .Patient had peroneal tendonitis for several month found to have accessory bone causing fracture shown from x-ray and MRI showed peroneal tendon tear. Patient not talking MEDS. Incision looking good did have scab when patient was in office. Patient has tingling foot. Patient wears splint when sleeping. Patient able to dress self, I with bathing but assist with tub and able to sit on stool. Patient helps with cooking and min housework tasks. Home situation 1 story with 3 steps with assist . Patient condition affects QOL and function. RTD Nov . Patient goal to walk normal. SOCIAL: . VOCATION: retired - Pain Left Ankle Pain Intensity (Out of 10): 3 Pain Intensity Range: 10 Comment: worst - Objective POSTURE: frontal plane mechanics pes cavus, mild forward posture. MOBLITY: used kneeling walker with CAM boot. GAIT: implemented fww with 50% with CAM boot 50 ft with SBA. DYNAMIC BALANCE: fair with fww. JOINT TRIMALLEOR: 47.0 cm2. AROM: dorsiflexion 5 degrees from 0,plantarflexion 65 degrees, inversion 5 degrees, eversion 4 degrees. MMT: anteriortibilas 3+/5, G-S 2+/5,perneous 2+/5,posterior tibilas 2+/5 - Balance/Special Test Scores Lower Extremity Functional Score: 16 - Goals Goal 1:: Patient to be I with HEP with progression ankle Goal Time Frame: 8-12 Weeks Goal 2:: Patient to ambulate with normal eladio with improve stance time LLE Goal Time Frame: 8-12 Weeks Goal 3:: Patient to improve active ROM ankle by 5-10 degrees to improve gait . Goal Time Frame: 8-12 Weeks Goal 4:: Patient to increase strength by 4-/5 except 3+/5 G-S to improve gait. Goal Time Frame: 8-12 Weeks Goal 5:: Patient to improve proprioception to improve stance time during gait. Goal Time Frame: 8-12 Weeks Goal 6:: Patient to improve LFES score by 10 points or> TO IMP[ROVE FUNCTION AND GAIT Goal Time Frame: 8-12 Weeks - Rehabilitation Potential Physical Therapy Diagnosis: This patient tore peroneal tendon with fx due to accessory bone with s/p repair of peroneal tendon with inability to walk using kneeling walker and CAM boot ,with instruction with 50% WB with fww and CAM boot ,decrease ROM ,strength ankle ,unable proprioception impairs mobility and function thus benefit from skilled PT Rehabilitation Potential: Good - Anticipated Interventions Patient/Client Instruction: Educate patient on: Condition, Plan of Care For the Purpose of:: To decrease pain, To increase ROM, To improve muscle performance and motor function, To improve ability to perform ADL's, To increase tolerance to activity/condition/position, To improve performance and independence with ADL's, To improve ability of physical actions for home/community/work/leisure, To improve gait and locomotor functions, To improve health of tissue, To decrease soft tissue restriction, To increase flexibility/ROM, To improve endurance, To improve balance, To improve safety with gait, To improve tolerance to ADL's Therapeutic Exercise to Include: Strength training, Endurance training, Balance training, Flexibilty training, Gait and locomotor training, Active ROM Comment: ankle, hip/knee For the Purpose of:: To decrease pain, To increase ROM, To improve muscle performance and motor function, To improve ability to perform ADL's, To increase tolerance to activity/condition/position, To improve performance and independence with ADL's, To improve health of tissue, To decrease soft tissue restriction, To increase flexibility/ROM, To improve endurance, To improve balance, To improve safety with gait, To improve safety, To improve health and function TENS: Yes IF ES: Yes Cryotherapy (ice pack, ice massage): Yes For the Purpose of:: To decrease pain, To increase ROM, To improve nutrient delivery to tissue, To increase oxygenation perfusion, To improve health of tissue, To decrease soft tissue restriction Thank you for the opportunity to evaluate your patient. For Medicare and Medicare HMO plans, please review the plan of care and approve it. It will need to be FAXED BACK to us at [phone] for Medicare purposes. For Medicare only, by signing this I certify the plan of care. Please let me know if there are questions or concerns regarding this plan of care. Physician Signature: Date:
--- NOTE | 2021-03-06 10:48 | HP.PTREVAL ---
Dr. Arcelia Edward, DPM, It has been my pleasure to treat JOYCE KELSEY over the last 10 visits for LEFT EXCSION OF PERNEUM FRACTURE WITH REPAIR OF PERONEAL TENDON RUPTURE. Please see the progress note below for an update on the physical therapy plan of care! Subjective: Doing well ..walking with no device Objective/Function: POSTURE: mild forward. GAIT: reciprocal pattern with CAM boot WBAT no decvice. AROM: DF 5 degrees, PF 60 degrees, IN 20 degrees, EV 5 degrees. MMT: ankle DF 4/5,4-/5 IN/EV ,PF 2+/5 Plan Plan: WBAT WITH CAM BOOT,SHOE AND BRACE NEXT WEDNESDAY. PT INTERVETION GAIT TRAINING WITH PROGRESSION OF WB ,BALANCE TRAINING,ANKLE ROM ,PROGRESS TO STRENGTH ANKLE AND PROPRIOCEPTION ERICK ,MODALTIES PRN Balance/Gait/Functional tests - Balance/Special Test Scores Lower Extremity Functional Score: 40 Goals Goal 1:: Patient to be I with HEP with progression ankle Goal Time Frame: 8-12 Weeks Goal Progress: Progressing Goal 2:: Patient to ambulate with normal eladio with improve stance time LLE Goal Time Frame: 8-12 Weeks Goal Progress: Progressing Goal 3:: Patient to improve active ROM ankle by 5-10 degrees to improve gait . Goal Time Frame: 8-12 Weeks Goal Progress: Progressing Goal 4:: Patient to increase strength by 4-/5 except 3+/5 G-S to improve gait. Goal Time Frame: 8-12 Weeks Goal Progress: Progressing Goal 5:: Patient to improve proprioception to improve stance time during gait. Goal Time Frame: 8-12 Weeks Goal Progress: Progressing Goal 6:: Patient to improve LFES score by 10 points or> TO IMP[ROVE FUNCTION AND GAIT Goal Time Frame: 8-12 Weeks Goal Progress: Progressing Anticipated Interventions Patient/Client Instruction: Educate patient on: Condition, Plan of Care For the Purpose of:: To decrease pain, To increase ROM, To improve muscle performance and motor function, To improve ability to perform ADL's, To increase tolerance to activity/condition/position, To improve performance and independence with ADL's, To improve ability of physical actions for home/community/work/leisure, To improve gait and locomotor functions, To improve health of tissue, To decrease soft tissue restriction, To increase flexibility/ROM, To improve endurance, To improve balance, To improve safety with gait, To improve tolerance to ADL's Therapeutic Exercise to Include: Strength training, Endurance training, Balance training, Flexibilty training, Gait and locomotor training, Active ROM Comment: ankle, hip/knee For the Purpose of:: To decrease pain, To increase ROM, To improve muscle performance and motor function, To improve ability to perform ADL's, To increase tolerance to activity/condition/position, To improve performance and independence with ADL's, To improve health of tissue, To decrease soft tissue restriction, To increase flexibility/ROM, To improve endurance, To improve balance, To improve safety with gait, To improve safety, To improve health and function TENS: Yes IF ES: Yes Cryotherapy (ice pack, ice massage): Yes For the Purpose of:: To decrease pain, To increase ROM, To improve nutrient delivery to tissue, To increase oxygenation perfusion, To improve health of tissue, To decrease soft tissue restriction Please do not hesitate to contact me at [phone] by phone or if you have questions or concerns regarding this new plan of care! Sincerely, Oral Zamarripa, PT, Cert MDT, OCS
--- NOTE | 2021-03-20 12:34 | HP.PTDCSUM ---
It has been my pleasure to treat JOYCE KELSEY referred by Dr. Arcelia Edward, ANDREW, with the diagnosis of LEFT EXCSION OF PERNEUM FRACTURE WITH REPAIR OF PERONEAL TENDON RUPTURE for a total of 14 visit(s). Discharge Date: 03/20/21 Please see the following information for a summary of their discharge status. Subjective: Doing well ,,ready for d/c. Sees Wednesday Left Ankle Pain Intensity (Out of 10): 0 % Improvement: 95 Objective/Function: POSTURE: WFL. GAIT: RECIPROCAL PATTERN. AROM : DF 5 degrees ,PF 60 degrees, IN 30 degrees , EV 5 degrees. MMT: 4/5 ankle stabilizers. PROPRIOCEPTION: LLE 30sec Goal 1:: Patient to be I with HEP with progression ankle Goal Progress: Goal Met Goal 2:: Patient to ambulate with normal eladio with improve stance time LLE Goal Progress: Goal Met Goal 3:: Patient to improve active ROM ankle by 5-10 degrees to improve gait . Goal Progress: Progressing Goal 4:: Patient to increase strength by 4-/5 except 3+/5 G-S to improve gait. Goal Progress: Goal Met Goal 5:: Patient to improve proprioception to improve stance time during gait. Goal Progress: Goal Met Goal 6:: Patient to improve LFES score by 10 points or> TO IMP[ROVE FUNCTION AND GAIT Goal Progress: Progressing Plan: D/C Discharge Comments: hep If there are questions or concerns regarding this patient's physical therapy, please feel free to call me at [phone]. Thank you for the referral of this patient. Sincerely, rOal Zamarripa, PT, Cert MDT, OCS Balance/Gait/Functional tests - Balance/Special Test Scores Lower Extremity Functional Score: 62
== END 2021-03-20 19:00 | disposition home or self-care (01) ==
LOC: PT 12:00
PROVIDERS: PCP Internal Medicine; Referring Provider Podiatrist; Visit Provider Podiatrist
DX: Z47.89 Encounter for other orthopedic aftercare (principal); S86.312D Strain of muscle(s) and tendon(s) of peroneal muscle group at lower leg level, left leg, subsequent encounter; X58.XXXD Exposure to other specified factors, subsequent encounter
CPT/HCPCS: 97110; 97162

== ENCOUNTER 2021-03-27 09:10 | Outpatient (RCR) | payer MEDICARE, OTHER, SELFPAY | END 2021-03-27 09:12 | disposition home or self-care (01) | LOC: PT 09:10 | PROVIDERS: PCP Internal Medicine; Visit Provider Orthopaedic Surgery | DX: R69 Illness, unspecified (principal) ==

== ENCOUNTER 2021-05-13 10:03 | Outpatient (CLI) | payer MEDICARE, SELFPAY ==
[2021-05-13 12:17] LABS: Absolute Lymphocyte Count 1.54 X10^3/uL (0.83-4.51); Absolute Neutrophil Count 3.8 X10^3/uL (2.0-7.7); Basophil# 0.05 X10^3/uL; Basophil% 0.8 % (0-1); Eosinophil# 0.15 X10^3/uL; Eosinophils% 2.5 % (0-5); Hematocrit 41.2 % (37-47); Hemoglobin 13.2 g/dL (12.0-15.0); Lymphocyte # 1.54 X10^3/ul (0.83-4.51); Lymphocyte % 25.7 % (19-41); Mean Corpuscular Hgb 29.3 pg (27.0-32.0); Mean Corpuscular Volume 91.4 fL (81-99); Mean Platelet Vol. 10.5 fl (6.2-12.0); Monocyte# 0.45 X10^3/uL; Monocyte% 7.5 % (0-10); NRBC Flagged by Analyzer 0 % (0-5); Neutrophil # 3.79 X10^3/uL (2.7-7.7); Neutrophil % 63.3 % (47-70); Platelet Count 307 K/mm3 (150-450); RBC Distribution Width CV 12.7 % (11.6-14.6); RBC Distribution Width SD 42.3 fl (35.1-43.9); Red Blood Count 4.51 M/mm3 (4.2-5.4)
[2021-05-13 12:40] LABS: AST(SGOT) 26 U/L (15-37); Alanine Aminotransfer ALT/SGPT 26 U/L (13-56); Albumin, Serum 3.9 g/dL (3.2-5.0); Alkaline Phosphatase 100 U/L (45-117); Anion Gap 6 (5-15); BUN 9 mg/dL (7-18); BUN/Creat Ratio 11.5 RATIO (10-20); Calcium,Total 9.3 mg/dL (8.5-10.1); Chloride 100 mmol/L (98-107); Creatinine, Serum 0.79 mg/dL (0.55-1.02); EST Glomerular Filtration Rate 78 mL/min (>60); Est Glom Filt Rate - Afr Amer 94 mL/min (>60); Globulin 4.1 g/dL (2.2-4.2); Glucose 132 mg/dL (74-106); Potassium 3.9 mmol/L (3.5-5.1); Sodium Level 136 mmol/L (136-145)
== END 2021-05-13 23:59 | disposition short-term general hospital (02) ==
LOC: MTLAB 10:07
PROVIDERS: PCP Internal Medicine; Referring Provider Internal Medicine Rheumatology; Visit Provider Internal Medicine Rheumatology
DX: M06.4 Inflammatory polyarthropathy (principal); E11.9 Type 2 diabetes mellitus without complications; R76.8 Other specified abnormal immunological findings in serum; M15.9 Polyosteoarthritis, unspecified; M17.0 Bilateral primary osteoarthritis of knee; M75.41 Impingement syndrome of right shoulder; I10 Essential (primary) hypertension; E78.5 Hyperlipidemia, unspecified
CPT/HCPCS: 36415; 80053; 85025

== ENCOUNTER → 2021-11-07 | Outpatient (CLI) | payer MEDICARE, SELFPAY ==
[2021-11-07 10:03] LABS: Absolute Lymphocyte Count 1.47 X10^3/uL (0.83-4.51); Absolute Neutrophil Count 3.7 X10^3/uL (2.0-7.7); Basophil# 0.06 X10^3/uL; Eosinophil# 0.14 X10^3/uL; Eosinophils% 2.4 % (0-5); Hematocrit 40.1 % (37-47); Hemoglobin 13.4 g/dL (12.0-15.0); Lymphocyte # 1.47 X10^3/ul (0.83-4.51); Lymphocyte % 25.3 % (19-41); Mean Corp Hgb Conc 33.4 g/dL (32-36); Mean Corpuscular Hgb 30.9 pg (27.0-32.0); Mean Corpuscular Volume 92.6 fL (81-99); Mean Platelet Vol. 10.2 fl (6.2-12.0); Monocyte# 0.45 X10^3/uL; Monocyte% 7.7 % (0-10); NRBC Flagged by Analyzer 0 % (0-5); Neutrophil # 3.69 X10^3/uL (2.7-7.7); Neutrophil % 63.4 % (47-70); Platelet Count 316 K/mm3 (150-450); RBC Distribution Width CV 12.9 % (11.6-14.6); RBC Distribution Width SD 43.9 fl (35.1-43.9); Red Blood Count 4.33 M/mm3 (4.2-5.4); White Blood Count 5.8 K/mm3 (4.4-11.0)
[2021-11-07 10:46] LABS: AST(SGOT) 22 U/L (15-37); Alanine Aminotransfer ALT/SGPT 31 U/L (13-56); Albumin, Serum 3.9 g/dL (3.2-5.0); Alkaline Phosphatase 88 U/L (45-117); Anion Gap 7 (5-15); BUN 13 mg/dL (7-18); Calcium,Total 9.2 mg/dL (8.5-10.1); Chloride 102 mmol/L (98-107); Creatinine, Serum 0.76 mg/dL (0.55-1.02); EST Glomerular Filtration Rate 80 mL/min (>60); Est Glom Filt Rate - Afr Amer 97 mL/min (>60); Glucose 152 mg/dL (74-106); Potassium 4.2 mmol/L (3.5-5.1); Protein, Total 7.9 g/dL (6.4-8.2); Sodium Level 138 mmol/L (136-145)
== END | disposition home or self-care (01) ==
LOC: MTLAB 09:12
PROVIDERS: PCP Internal Medicine; Referring Provider Internal Medicine Rheumatology; Visit Provider Internal Medicine Rheumatology
DX: M06.4 Inflammatory polyarthropathy (principal); E11.9 Type 2 diabetes mellitus without complications; R76.8 Other specified abnormal immunological findings in serum; M17.0 Bilateral primary osteoarthritis of knee; M75.41 Impingement syndrome of right shoulder; I10 Essential (primary) hypertension; E78.5 Hyperlipidemia, unspecified; M76.72 Peroneal tendinitis, left leg; M77.52 Other enthesopathy of left foot and ankle
CPT/HCPCS: 36415; 80053; 85025

== ENCOUNTER → 2022-05-07 | Outpatient (CLI) | payer MEDICARE, SELFPAY ==
[2022-05-07 10:14] LABS: Absolute Lymphocyte Count 1.47 X10^3/uL (0.83-4.51); Absolute Neutrophil Count 4.1 X10^3/uL (2.0-7.7); Basophil# 0.05 X10^3/uL; Basophil% 0.8 % (0-1); Eosinophil# 0.14 X10^3/uL; Eosinophils% 2.2 % (0-5); Hemoglobin 13.1 g/dL (12.0-15.0); Lymphocyte # 1.47 X10^3/ul (0.83-4.51); Lymphocyte % 23.5 % (19-41); Mean Corp Hgb Conc 32.8 g/dL (32-36); Mean Corpuscular Hgb 29.9 pg (27.0-32.0); Mean Corpuscular Volume 91.3 fL (81-99); Mean Platelet Vol. 10.2 fl (6.2-12.0); Monocyte# 0.48 X10^3/uL; Monocyte% 7.7 % (0-10); NRBC Flagged by Analyzer 0 % (0-5); Neutrophil % 65.6 % (47-70); Platelet Count 302 K/mm3 (150-450); RBC Distribution Width CV 13.2 % (11.6-14.6); RBC Distribution Width SD 44.7 fl (35.1-43.9); Red Blood Count 4.38 M/mm3 (4.2-5.4); White Blood Count 6.3 K/mm3 (4.4-11.0)
[2022-05-07 10:30] LABS: AST(SGOT) 20 U/L (15-37); Alanine Aminotransfer ALT/SGPT 31 U/L (13-56); Albumin, Serum 3.8 g/dL (3.2-5.0); Alkaline Phosphatase 75 U/L (45-117); Anion Gap 5 (5-15); BUN 10 mg/dL (7-18); BUN/Creat Ratio 12.5 RATIO (10-20); Calcium,Total 8.9 mg/dL (8.5-10.1); Chloride 102 mmol/L (98-107); EST Glomerular Filtration Rate 76 mL/min (>60); Est Glom Filt Rate - Afr Amer 92 mL/min (>60); Globulin 3.8 g/dL (2.2-4.2); Glucose 135 mg/dL (74-106); Potassium 3.9 mmol/L (3.5-5.1); Protein, Total 7.6 g/dL (6.4-8.2); Sodium Level 137 mmol/L (136-145)
== END | disposition home or self-care (01) ==
LOC: MTLAB 08:36
PROVIDERS: PCP Internal Medicine; Referring Provider Internal Medicine Rheumatology; Visit Provider Internal Medicine Rheumatology
DX: M06.4 Inflammatory polyarthropathy (principal); E11.9 Type 2 diabetes mellitus without complications; R76.8 Other specified abnormal immunological findings in serum; M17.0 Bilateral primary osteoarthritis of knee; M75.41 Impingement syndrome of right shoulder; I10 Essential (primary) hypertension; E78.5 Hyperlipidemia, unspecified; M76.72 Peroneal tendinitis, left leg; M77.52 Other enthesopathy of left foot and ankle
CPT/HCPCS: 36415; 80053; 85025

== ENCOUNTER → 2022-05-19 | Outpatient (CLI) | payer MEDICARE, SELFPAY | END | disposition home or self-care (01) | PROVIDERS: PCP Internal Medicine | DX: E78.2 Mixed hyperlipidemia (principal) | CPT/HCPCS: 36415 ==

== ENCOUNTER → 2022-10-22 | Outpatient (CLI) | payer MEDICARE, SELFPAY ==
[2022-10-22 10:08] LABS: Absolute Lymphocyte Count 2.08 X10^3/uL (0.83-4.51); Absolute Neutrophil Count 4.8 X10^3/uL (2.0-7.7); Basophil# 0.06 X10^3/uL; Basophil% 0.8 % (0-1); Eosinophil# 0.21 X10^3/uL; Eosinophils% 2.6 % (0-5); Hematocrit 39.2 % (37-47); Hemoglobin 12.8 g/dL (12.0-15.0); Lymphocyte # 2.08 X10^3/ul (0.83-4.51); Lymphocyte % 26.1 % (19-41); Mean Corp Hgb Conc 32.7 g/dL (32-36); Mean Corpuscular Hgb 30.1 pg (27.0-32.0); Mean Corpuscular Volume 92.2 fL (81-99); Mean Platelet Vol. 10.1 fl (6.2-12.0); NRBC Flagged by Analyzer 0 % (0-5); Neutrophil % 60.1 % (47-70); Platelet Count 274 K/mm3 (150-450); RBC Distribution Width CV 13.1 % (11.6-14.6); RBC Distribution Width SD 44.3 fl (35.1-43.9); Red Blood Count 4.25 M/mm3 (4.2-5.4)
[2022-10-22 11:03] LABS: ALB/GLOB Ratio 0.8 RATIO (0.9-2.4); AST(SGOT) 28 U/L (15-37); Alanine Aminotransfer ALT/SGPT 41 U/L (13-56); Albumin, Serum 3.4 g/dL (3.2-5.0); Alkaline Phosphatase 155 U/L (45-117); Anion Gap 6 (5-15); BUN 6 mg/dL (7-18); BUN/Creat Ratio 7.8 RATIO (10-20); Calcium,Total 9.1 mg/dL (8.5-10.1); Chloride 105 mmol/L (98-107); Creatinine, Serum 0.76 mg/dL (0.55-1.02); EST Glomerular Filtration Rate 80 mL/min (>60); Est Glom Filt Rate - Afr Amer 97 mL/min (>60); Globulin 4.4 g/dL (2.2-4.2); Glucose 135 mg/dL (74-106); Potassium 3.7 mmol/L (3.5-5.1); Protein, Total 7.8 g/dL (6.4-8.2); Sodium Level 139 mmol/L (136-145)
== END | disposition home or self-care (01) ==
LOC: MTLAB 07:42
PROVIDERS: PCP Internal Medicine; Referring Provider Internal Medicine Rheumatology; Visit Provider Internal Medicine Rheumatology
DX: M06.4 Inflammatory polyarthropathy (principal); E11.9 Type 2 diabetes mellitus without complications; R76.8 Other specified abnormal immunological findings in serum; M17.0 Bilateral primary osteoarthritis of knee; M75.41 Impingement syndrome of right shoulder; I10 Essential (primary) hypertension; E78.5 Hyperlipidemia, unspecified; M76.72 Peroneal tendinitis, left leg; M77.52 Other enthesopathy of left foot and ankle
CPT/HCPCS: 36415; 80053; 85025

== ENCOUNTER → 2023-04-20 | Outpatient (CLI) | payer MEDICARE, SELFPAY ==
[2023-04-20 10:18] LABS: Absolute Lymphocyte Count 1.89 X10^3/uL (0.83-4.51); Absolute Neutrophil Count 3.5 X10^3/uL (2.0-7.7); Basophil# 0.06 X10^3/uL; Eosinophil# 0.21 X10^3/uL; Eosinophils% 3.4 % (0-5); Hematocrit 39.1 % (37-47); Hemoglobin 12.8 g/dL (12.0-15.0); Lymphocyte # 1.89 X10^3/ul (0.83-4.51); Lymphocyte % 30.4 % (19-41); Mean Corp Hgb Conc 32.7 g/dL (32-36); Mean Corpuscular Hgb 29.7 pg (27.0-32.0); Mean Corpuscular Volume 90.7 fL (81-99); Mean Platelet Vol. 10.3 fl (6.2-12.0); Monocyte# 0.55 X10^3/uL; Monocyte% 8.8 % (0-10); NRBC Flagged by Analyzer 0 % (0-5); Neutrophil # 3.49 X10^3/uL (2.7-7.7); Neutrophil % 56.1 % (47-70); Platelet Count 283 K/mm3 (150-450); RBC Distribution Width CV 13.2 % (11.6-14.6); RBC Distribution Width SD 44.3 fl (35.1-43.9); Red Blood Count 4.31 M/mm3 (4.2-5.4); White Blood Count 6.2 K/mm3 (4.4-11.0)
[2023-04-20 10:48] LABS: ALB/GLOB Ratio 0.9 RATIO (0.9-2.4); AST(SGOT) 19 U/L (15-37); Alanine Aminotransfer ALT/SGPT 29 U/L (13-56); Albumin, Serum 3.4 g/dL (3.2-5.0); Alkaline Phosphatase 88 U/L (45-117); Anion Gap 4 (5-15); BUN 12 mg/dL (7-18); BUN/Creat Ratio 14.9 RATIO (10-20); Chloride 105 mmol/L (98-107); EST Glomerular Filtration Rate 75 mL/min (>60); Est Glom Filt Rate - Afr Amer 91 mL/min (>60); Globulin 3.9 g/dL (2.2-4.2); Glucose 190 mg/dL (74-106); Protein, Total 7.3 g/dL (6.4-8.2); Sodium Level 138 mmol/L (136-145)
== END | disposition home or self-care (01) ==
PROVIDERS: PCP Internal Medicine; Referring Provider Internal Medicine Rheumatology; Visit Provider Internal Medicine Rheumatology
DX: M06.4 Inflammatory polyarthropathy (principal); R76.8 Other specified abnormal immunological findings in serum; M15.9 Polyosteoarthritis, unspecified
CPT/HCPCS: 36415; 80053; 85025

== ENCOUNTER → 2023-11-02 | Outpatient (CLI) | payer MEDICARE, SELFPAY ==
[2023-11-02 10:08] LABS: Absolute Lymphocyte Count 1.61 X10^3/uL (0.83-4.51); Absolute Neutrophil Count 5.3 X10^3/uL (2.0-7.7); Basophil# 0.06 X10^3/uL; Basophil% 0.8 % (0-1); Eosinophil# 0.33 X10^3/uL; Eosinophils% 4.1 % (0-5); Hematocrit 40.8 % (37-47); Hemoglobin 13.3 g/dL (12.0-15.0); Lymphocyte # 1.61 X10^3/ul (0.83-4.51); Lymphocyte % 20.2 % (19-41); Mean Corp Hgb Conc 32.6 g/dL (32-36); Mean Corpuscular Hgb 29.5 pg (27.0-32.0); Mean Corpuscular Volume 90.5 fL (81-99); Mean Platelet Vol. 10.2 fl (6.2-12.0); Monocyte# 0.66 X10^3/uL; Monocyte% 8.3 % (0-10); NRBC Flagged by Analyzer 0 % (0-5); Neutrophil # 5.29 X10^3/uL (2.7-7.7); Neutrophil % 66.5 % (47-70); Platelet Count 315 K/mm3 (150-450); RBC Distribution Width SD 43.4 fl (35.1-43.9); Red Blood Count 4.51 M/mm3 (4.2-5.4)
[2023-11-02 10:30] LABS: ALB/GLOB Ratio 0.9 RATIO (0.9-2.4); AST(SGOT) 21 U/L (15-37); Alanine Aminotransfer ALT/SGPT 30 U/L (13-56); Albumin, Serum 3.6 g/dL (3.2-5.0); Alkaline Phosphatase 100 U/L (45-117); Anion Gap 7 (5-15); BUN 10 mg/dL (7-18); BUN/Creat Ratio 12.5 RATIO (10-20); Calcium,Total 9.2 mg/dL (8.5-10.1); Chloride 103 mmol/L (98-107); EST Glomerular Filtration Rate 75 mL/min (>60); Est Glom Filt Rate - Afr Amer 91 mL/min (>60); Glucose 123 mg/dL (74-106); Potassium 3.6 mmol/L (3.5-5.1); Protein, Total 7.6 g/dL (6.4-8.2); Sodium Level 139 mmol/L (136-145)
== END | disposition home or self-care (01) ==
LOC: MTLAB 08:14
PROVIDERS: PCP Internal Medicine; Referring Provider Internal Medicine Rheumatology; Visit Provider Internal Medicine Rheumatology
DX: M06.4 Inflammatory polyarthropathy (principal); Z79.899 Other long term (current) drug therapy
CPT/HCPCS: 36415; 80053; 85025

== ENCOUNTER 2023-12-31 00:03 | Emergency (ER) | payer MEDICARE, SELFPAY ==
[2023-12-31 00:05] VITALS: BP 185/93; PULSE 93; RESP 18; TEMP 35.9; O2SAT 98
[2023-12-31 00:22] VITALS: BMI 31.6
--- NOTE | 2023-12-31 00:55 | EDS_ITS ---
HPI History of Present Illness Chief Complaint: Dizziness Informant: patient and spouse/S.O. Narrative Narrative: Patient is a 68-year-old female with history of diabetes mellitus, arthritis, hypertension and reflux presenting with dizziness and nausea. Patient states [place] When she turned to get out of the car once they arrived home she suddenly felt dizzy. She felt associated nauseous. She states she feels a little off balance. She denies any associated numbness, vision changes or weakness. No speech changes reported. She waited about an hour until she told her about this. He checked her blood pressure and it was elevated (around 160 systolic) so they came to the ER for further evaluation. She states her symptoms are worse when she moves. She denies a sensation of feeling like she is going to pass out. She denies any history of this before. Denies any recent URI symptoms. Denies associated chest pain, shortness of breath, abdominal pain or change in her bowel habits. No fever or chills reported. No other complaints or concerns at this time. Denies any recent medication changes. PFSH PFSH Medical History Hypertension Post-menopausal Insulin dependent diabetes mellitus Diabetes Arthritis Bladder disease Gastric reflux Non-smoker Home Medications ?Medication ?Instructions ?Recorded ?Last Taken ?Type atenolol 25 mg tablet 25 mg PO DAILY 07/20/18 12/06/20 History hydroxychloroquine 200 mg tablet 200 mg PO BIDCM 07/20/18 Unknown History insulin glargine 100 unit/mL (3 24 unit SQ QHS PRN PRN 07/20/18 Unknown History mL) subcutaneous pen (Basaglar HYPERGLYCEMIA KwikPen U-100 Insulin) losartan 25 mg tablet 25 mg PO QHS 07/20/18 12/06/20 History metformin 500 mg tablet 1 tab PO BID 07/20/18 Unknown History omeprazole 20 mg capsule,delayed 20 mg PO DAILY 07/20/18 Unknown History release pravastatin 20 mg tablet 20 mg PO QHS 07/20/18 Unknown History Ca 600 mg-D3 20 mcg-mag oxide 50 1 tab PO DAILY 12/31/23 Unknown History ia-Aj-xpsrto-manganese-boron tablet (Calcium 600-D3 Plus (mag-zinc)) aspirin 81 mg capsule 81 mg PO DAILY 12/31/23 Unknown History estradiol 0.01% (0.1 mg/gram) 1 appful vaginal QWEEK 12/31/23 Unknown History vaginal cream (Estrace) glipizide 10 mg tablet 10 mg PO BID 12/31/23 Unknown History meclizine 25 mg tablet 25 mg PO 4X/DAY PRN PRN Dizziness 12/31/23 Unknown Rx #20 tabs Allergy/AdvReac Type Severity Reaction Status Date / Time No Known Allergies Allergy Verified 12/31/23 00:05 Social History Smoking Status: Never smoker ROS ROS ED Constitutional Constitutional ED: Denies chills or fever(s) Eyes Eyes: Denies blurry vision or change in vision ENT ENT ED: Denies rhinorrhea or sore throat Cardiovascular Cardiovascular: Denies chest pain Respiratory/Chest Respiratory/Chest: Denies cough or dyspnea Gastrointestinal Gastrointestinal: Reports nausea; Denies abdominal pain or vomiting Musculoskeletal Musculoskeletal: Denies arthralgias or myalgias Integumentary Denies rash Neurologic Neurologic: Reports other Details: Reports dizziness/vertigo ; Denies headache(s), paresthesias or weakness Hematologic/Lymphatic Hematologic/Lymphatic: Denies easy bleeding or easy bruising EXAM Physical Exam Const Vital Signs: 12/31/23 00:05 12/31/23 00:18 12/31/23 02:04 Temperature 96.7 F L Temperature Source Temporal Pulse Rate 93 72 Respiratory Rate 18 19 H Respiratory Effort Normal Non-Labored Respiratory Pattern Normal Blood Pressure 185/93 H 144/75 H Blood Pressure Mean 123 98 Pulse Ox 98 96 Oxygen Delivery Method Room Air Room Air Positive well nourished and well developed General Appearance ED: well developed and NAD HEENT Reports TM's clear and moist mucous membranes Negative for trauma Tympanic Membrane ED: Yes TM's clear Eyes PERRL and EOMs intact bilaterally Eyes Narrative: Patient has bilateral horizontal of fatiguing nystagmus with leftward gaze. Pos itive [place]-Hallpike maneuver on the right. No rotary nystagmus appreciated. Neck supple Chest Wall inspection of chest normal Resp normal respiratory effort and clear to auscultation bilaterally Cardio regular rate and regular rhythm GI normal to inspection, nondistended, normoactive bowel sounds and non-tender Extremity normal to inspection General Extremety ED: Negative for edema General Extremity: Negative for edema Neuro oriented x3 and no sensory deficits noted Neuro Narrative: No drift of the extremities appreciated. Normal nohhyj-ar-joob bilaterally. Normal pzvf-nn-mfuz bilaterally. Patient able to sit up in the bed without any truncal ataxia. Sensorium / Orientation: alert Motor Exam: strength 5/5 throughout; Negative for general weakness Psych mental status grossly normal Skin no rashes or lesions noted and no wounds MDM MDM MDM Narrative Medical decision making narrative: Patient evaluated with sudden onset of dizziness which she describes as a room spinning sensation as well as associated nausea. Physical exam is most consistent with peripheral vertigo. Will give Zofran and Antivert in the emergency room. She is not insulin-dependent diabetic and will check her blood sugar as well. Blood sugar is mildly elevated 183. Do not think this is the cause of her symptoms. Blood pressure improved in the ER without further intervention. Patient is improvement of symptoms after medication. She ambulates with a steady gait. Will be discharged home with a prescription for meclizine. Given return precautions. Discharged home in stable condition. Lab Data Attestation: I reviewed the patient's lab results. Labs: Laboratory Results - last 24 hr 12/31/23 01:00 POC Glucose 183 H Discharge Plan Triage Chief Complaint: Dizziness Other Complaint: Hypertension ED Provider: Jackie Pereira Dx/Rx/DC Orders Clinical Impression: Peripheral positional vertigo, Peripheral positional vertigo of right ear, Diabetes mellitus Instructions: ED BPV Vertigo Prescriptions: New meclizine 25 mg tablet 25 mg PO 4X/DAY PRN PRN (Reason: Dizziness) Qty: 20 0RF No Action metformin 500 MG tablet 1 tab PO BID atenolol 25 tablet 25 mg PO DAILY losartan 25 MG tablet 25 mg PO QHS omeprazole 20 capsule,delayed release(DR/EC) 20 mg PO DAILY pravastatin 20 MG tablet 20 mg PO QHS hydroxychloroquine 200 MG tablet 200 mg PO BIDCM insulin glargine [Basaglar KwikPen U-100 Insulin] 100 UNIT/ML insulin pen 24 unit SQ QHS PRN PRN (Reason: HYPERGLYCEMIA) Ca-D3-mag qn-sjus-wdu-shanelle-bor [Calcium 600-D3 Plus (mag-zinc)] 600 mg calcium- 20 mcg-50 mg tablet 1 tab PO DAILY aspirin 81 mg capsule 81 mg PO DAILY glipizide 10 mg tablet 10 mg PO BID estradiol [Estrace] 0.01 % (0.1 mg/gram) cream 1 appful vaginal QWEEK Rx Instructions: for 14 days Primary Care Provider: Kelly Borden Referrals: Kelly Borden MD [Primary Care Provider] - Activity Restrictions/Additional Instructions: I suspect you have blood abnormality of your right inner ear that is causing your dizziness/vertigo. Please follow-up with your primary care doctor. You b een given medicine to use as needed for symptoms. If it does not go in its own sometimes you need a special type of physical therapy called vestibular therapy. Your primary care doctor can arrange this. I do not think her presentation today is associated with high blood pressure. Print Language: Nepalese Disposition Disposition: Home, Self Care
[2023-12-31] MEDS: Ondansetron ODT 4 MG Tablet PO (00:56)
[2023-12-31] MEDS: Meclizine HCl 25 MG Tablet PO (00:56)
[2023-12-31 01:20] LABS: Bedside Glucose 183 mg/dL (74-106)
[2023-12-31 02:04] VITALS: BP 144/75; PULSE 72; RESP 19; O2SAT 96
[2023-12-31 02:32] VITALS: BP 141/89; PULSE 70; RESP 16; TEMP 36.5; O2SAT 95
== END 2023-12-31 02:37 | disposition home or self-care (01) ==
PROVIDERS: Emergency Provider Emergency Medicine; PCP Internal Medicine; Visit Provider Emergency Medicine
DX: H81.391 Other peripheral vertigo, right ear (principal); Z79.4 Long term (current) use of insulin; E11.9 Type 2 diabetes mellitus without complications; I10 Essential (primary) hypertension; Z79.899 Other long term (current) drug therapy; Z79.84 Long term (current) use of oral hypoglycemic drugs; K21.9 Gastro-esophageal reflux disease without esophagitis
CPT/HCPCS: 82962; 99284

== ENCOUNTER → 2024-04-26 | Outpatient (CLI) | payer MEDICARE, SELFPAY ==
[2024-04-26 12:52] LABS: ALB/GLOB Ratio 0.9 RATIO (0.9-2.4); AST(SGOT) 28 U/L (15-37); Alanine Aminotransfer ALT/SGPT 27 U/L (13-56); Albumin, Serum 3.7 g/dL (3.2-5.0); Alkaline Phosphatase 105 U/L (45-117); Anion Gap 7 (5-15); BUN 8 mg/dL (7-18); BUN/Creat Ratio 9.8 RATIO (10-20); Calcium,Total 9.1 mg/dL (8.5-10.1); Chloride 100 mmol/L (98-107); Creatinine, Serum 0.81 mg/dL (0.55-1.02); EST Glomerular Filtration Rate 74 mL/min (>60); Est Glom Filt Rate - Afr Amer 90 mL/min (>60); Globulin 4.2 g/dL (2.2-4.2); Glucose 229 mg/dL (74-106); Potassium 4.2 mmol/L (3.5-5.1); Protein, Total 7.9 g/dL (6.4-8.2); Sodium Level 135 mmol/L (136-145)
[2024-04-26 13:07] LABS: Absolute Lymphocyte Count 1.62 X10^3/uL (0.83-4.51); Absolute Neutrophil Count 5.6 X10^3/uL (2.0-7.7); Basophil# 0.05 X10^3/uL; Basophil% 0.6 % (0-1); Eosinophil# 0.12 X10^3/uL; Eosinophils% 1.5 % (0-5); Hematocrit 39.6 % (37-47); Hemoglobin 13.1 g/dL (12.0-15.0); Lymphocyte # 1.62 X10^3/ul (0.83-4.51); Lymphocyte % 20.2 % (19-41); Mean Corp Hgb Conc 33.1 g/dL (32-36); Mean Corpuscular Hgb 29.5 pg (27.0-32.0); Mean Corpuscular Volume 89.2 fL (81-99); Mean Platelet Vol. 9.9 fl (6.2-12.0); Monocyte# 0.59 X10^3/uL; Monocyte% 7.4 % (0-10); NRBC Flagged by Analyzer 0 % (0-5); Neutrophil % 69.8 % (47-70); Platelet Count 484 K/mm3 (150-450); RBC Distribution Width CV 13.2 % (11.6-14.6); RBC Distribution Width SD 43.6 fl (35.1-43.9); Red Blood Count 4.44 M/mm3 (4.2-5.4)
== END | disposition home or self-care (01) ==
LOC: MTLAB 10:28
PROVIDERS: PCP Internal Medicine; Referring Provider Internal Medicine Rheumatology; Visit Provider Internal Medicine Rheumatology
DX: M06.4 Inflammatory polyarthropathy (principal); Z79.899 Other long term (current) drug therapy; R76.8 Other specified abnormal immunological findings in serum; M19.049 Primary osteoarthritis, unspecified hand; M17.0 Bilateral primary osteoarthritis of knee
CPT/HCPCS: 36415; 80053; 85025

== ENCOUNTER 2024-08-27 21:32 | Emergency (ER) | payer MEDICARE, SELFPAY ==
[2024-08-27 21:33] VITALS: BP 173/80; PULSE 97; RESP 18; TEMP 38.1; O2SAT 98
[2024-08-27 21:34] VITALS: BP 173/80; PULSE 97; RESP 18; TEMP 38.1; O2SAT 98
[2024-08-27 21:42] VITALS: BMI 31.7
[2024-08-27] MEDS: Ondansetron 4 MG/2 ML Vial IV (22:30)
[2024-08-27] MEDS: Acetaminophen 500 MG Tablet PO (22:30)
[2024-08-27] MEDS: 0.9% Normal Saline (1000mL) 1,000 ML 1000 ML IV (22:30)
[2024-08-27 22:46] VITALS: BP 168/79; PULSE 97; RESP 18; TEMP 38.1; O2SAT 98
[2024-08-27 22:46] LABS: Mucous, Urine 0 SEEN /hpf (<or=2+)
[2024-08-27 22:48] LABS: Absolute Neutrophil Count 6.8 X10^3/uL (2.0-7.7); Basophil# 0.03 X10^3/uL; Basophil% 0.4 % (0-1); Eosinophil# 0.05 X10^3/uL; Eosinophils% 0.7 % (0-5); Hematocrit 36.4 % (37-47); Hemoglobin 12.1 g/dL (12.0-15.0); Lymphocyte % 6.7 % (19-41); Mean Corp Hgb Conc 33.2 g/dL (32-36); Mean Corpuscular Hgb 30.3 pg (27.0-32.0); Mean Corpuscular Volume 91.2 fL (81-99); Mean Platelet Vol. 10.1 fl (6.2-12.0); Monocyte# 0.09 X10^3/uL; Monocyte% 1.2 % (0-10); NRBC Flagged by Analyzer 0 % (0-5); Neutrophil # 6.75 X10^3/uL (2.7-7.7); Neutrophil % 90.6 % (47-70); POSITIVE DIFFERENTIAL YES; Platelet Count 250 K/mm3 (150-450); RBC Distribution Width CV 13.3 % (11.6-14.6); RBC Distribution Width SD 43.8 fl (35.1-43.9); Red Blood Count 3.99 M/mm3 (4.2-5.4); White Blood Count 7.5 K/mm3 (4.4-11.0)
[2024-08-27 22:50] LABS: Color, Urine Yellow (Yellow); Glucose, Dipstick Normal (Normal); Ketone-Dipstick Negative (Negative); Leukocyte Esterase-Dipstick 100 /ul (Negative); Nitrite-Dipstick Negative (Negative); Occult Blood-Urine 25 /ul (Negative); Protein-Dipstick 30 mg/dl (Negative); Urine Bilirubin Dipstick Negative (Negative); Urine Clarity Clear (Clear); Urine Urobilinogen Normal (Normal)
[2024-08-27 22:58] LABS: Red Blood Cells-Urine 0-5 SEEN /hpf (0-5); White Blood Cells 5-10 SEEN /hpf (0-5)
[2024-08-27 22:59] LABS: Bacteria 3+ /hpf (None Seen); Renal Epithelial Cells 0-5 SEEN /hpf (0-5); Squamous Epithelial Cells - UA 0-5 SEEN /hpf (5-10)
[2024-08-27 23:09] LABS: Anion Gap 15 (5-15); BUN 12 mg/dL (4-19); BUN/Creat Ratio 14.2 RATIO (10-20); Calcium,Total 9.3 mg/dL (7.6-11.0); Carbon Dioxide 21.7 mmol/L (21.0-32.0); Chloride 99 mmol/L (98-108); Creatinine, Serum 0.85 mg/dL (0.70-1.20); EST Glomerular Filtration Rate 74 (>60); Estimated Creatinine Clearance 64.73 ml/min (50-250); Glucose 200 mg/dL (70-99); Sodium Level 136 mmol/L (133-145)
[2024-08-27] MEDS: Cephalexin 250 MG Capsule 500 MG PO (23:49)
[2024-08-27 23:50] VITALS: BP 141/67; PULSE 100; RESP 16; TEMP 37.2; O2SAT 93
--- NOTE | 2024-08-28 00:18 | ED.RN ---
LAB CALLED FOR OUTSTANDING MICRO. RESPONSE EVERYTHING IS NEGATIVE. I DO NOT KNOW WHY IT IS NOT CROSSING OVER
[2024-08-28 00:34] VITALS: BP 104/80; PULSE 92; RESP 14; TEMP 36.9; O2SAT 100
--- NOTE | 2024-08-28 00:34 | EX.ED.DYSGE1 ---
HPI History of Present Illness Chief Complaint: General Illness Informant: patient Onset/Context/Timing Onset: Today and Hours Context: Sudden Onset Timing: Continuous Quality: Dizzy/lightheaded Worsened by: Nothing Relieved by: Nothing Associated Symptoms Associated Symptoms: Weak all over, nauseated Narrative Narrative: Patient presents with the above symptoms. Started spontaneously. Reports dizziness but describes it as a lightheadedness. She has a history of vertigo but this feels different. She denies any vision changes, speech changes, facial droop, focal weakness or numbness. No chest pain or shortness of breath. No new medications. No fevers or recent illnesses. Recent Illness/Hospitalization: No PFSH PFSH Medical History Hypertension Post-menopausal Insulin dependent diabetes mellitus Diabetes Arthritis Bladder disease Gastric reflux Non-smoker Home Medications ?Medication ?Instructions ?Recorded ?Last Taken ?Type atenolol 25 mg tablet 25 mg PO DAILY 07/20/18 12/06/20 History hydroxychloroquine 200 mg tablet 200 mg PO BIDCM 07/20/18 Unknown History insulin glargine 100 unit/mL (3 24 unit SQ QHS PRN PRN 07/20/18 Unknown History mL) subcutaneous pen (Basaglar HYPERGLYCEMIA KwikPen U-100 Insulin) losartan 25 mg tablet 25 mg PO QHS 07/20/18 12/06/20 History metformin 500 mg tablet 1 tab PO BID 07/20/18 Unknown History omeprazole 20 mg capsule,delayed 20 mg PO DAILY 07/20/18 Unknown History release pravastatin 20 mg tablet 20 mg PO QHS 07/20/18 Unknown History aspirin 81 mg capsule 81 mg PO DAILY 12/31/23 Unknown History calcium 600 mg-D3 20 mcg-magnesium 1 tab PO DAILY 12/31/23 Unknown History 50 ee-Tu-jrdfbc-cornelius-boron tablet (Calcium 600-D3 Plus (mag-zinc)) estradiol 0.01% (0.1 mg/gram) 1 appful vaginal QWEEK 12/31/23 Unknown History vaginal cream (Estrace) glipizide 10 mg tablet 10 mg PO BID 12/31/23 Unknown History meclizine 25 mg tablet 25 mg PO 4X/DAY PRN PRN Dizziness 12/31/23 Unknown Rx #20 tabs cephalexin 500 mg capsule 500 mg PO Q6 #40 CAPSULES 08/27/24 Unknown Rx Allergy/AdvReac Type Severity Reaction Status Date / Time No Known Allergies Allergy Verified 08/27/24 21:34 Social History Smoking Status: Never smoker ROS ROS ED Constitutional Constitutional ED: Denies chills or fever(s) Eyes Eyes: Denies blurry vision, change in vision or diplopia ENT ENT ED: Denies rhinorrhea or sore throat Cardiovascular Cardiovascular: Denies chest pain, palpitations or racing heartbeat Respiratory/Chest Respiratory/Chest: Denies cough, dyspnea or sputum Gastrointestinal Gastrointestinal: Reports nausea; Denies abdominal pain or diarrhea Genitourinary Genitourinary ED: Denies dysuria, hematuria or urinary frequency Musculoskeletal Musculoskeletal: Reports arthralgias and myalgias; Denies back pain or neck pain Integumentary Denies rash Neurologic Neurologic: Reports weakness; Denies headache(s) or paresthesias Psychiatric Psychiatric: Denies anxiety or depression EXAM Physical Exam Const Vital Signs: 08/27/24 21:33 08/27/24 21:34 08/27/24 21:42 Temperature 100.5 F H 100.5 F H Temperature Source Oral Oral Pulse Rate 97 97 Respiratory Rate 18 18 Respiratory Effort Normal Non-Labored Respiratory Pattern Normal Blood Pressure 173/80 H 173/80 H Blood Pressure Mean 111 111 Pulse Ox 98 98 Oxygen Delivery Method Room Air Room Air 08/27/24 22:46 08/27/24 23:50 Temperature 100.5 F H 99 F Temperature Source Oral Oral Pulse Rate 97 100 Respiratory Rate 18 16 Respiratory Effort Respiratory Pattern Blood Pressure 168/79 H 141/67 H Blood Pressure Mean 108 91 Pulse Ox 98 93 Oxygen Delivery Method Room Air Room Air Positive well nourished and well developed General Appearance ED: well developed HEENT Reports moist mucous membranes Negative for trauma or tenderness Eyes PERRL and EOMs intact bilaterally Neck supple Resp normal respiratory effort and clear to auscultation bilaterally Cardio regular rate and regular rhythm GI normal to inspection, nondistended, normoactive bowel sounds Extremity normal to inspection General Extremety ED: Negative for edema or tenderness General Extremity: Negative for edema Neuro oriented x3, CN's II-XII intact bilaterally and no sensory deficits noted Sensorium / Orientation: alert Motor Exam: strength 5/5 throughout Psych mental status grossly normal Skin no rashes or lesions noted, no wounds and skin turgor normal MDM MDM MDM Narrative Medical decision making narrative: Patient presents with vague symptoms. She describes a dizziness but it does not sound like a typical vertigo. She has no other neurologic symptoms including nothing focal. This came on pretty suddenly and was concern for something like the flu or COVID given that she had all these other symptoms like myalgias and nausea fairly suddenly. This testing was negative. She was treated with Zofran and IV fluids while checking other testing. CBC and metabolic panel looked good. Urinalysis showed signs of infection. She was not septic or in renal failure. Treated with Keflex. She was not having chest pain or any other cardiac symptoms. No respiratory symptoms. No other GI symptoms or abdominal pain. No new medications or new diet. No recent hospitalizations or surgeries. On reevaluation, symptoms had resolved. Will treat with Keflex as an outpatient. Inlb-jxm-wdsyqxs remedies for body aches. Vital signs are stable. Discharge home. Impression #1 UTI Lab Data Attestation: I reviewed the patient's lab results. Labs: Laboratory Results - last 24 hr 08/27/24 08/27/24 21:56 22:40 WBC 7.5 RBC 3.99 L Hgb 12.1 Hct 36.4 L MCV 91.2 MCH 30.3 MCHC 33.2 RDW Std Deviation 43.8 RDW Coeff of Rosemary 13.3 Plt Count 250 MPV 10.1 Immature Gran % (Auto) 0.400 Neut % (Auto) 90.6 H Lymph % (Auto) 6.7 L [place] % (Auto) 1.2 Eos % (Auto) 0.7 Baso % (Auto) 0.4 Absolute Neuts (auto) 6.8 Absolute Lymphs (auto) 0.50 L Nucleated RBC % 0 Sodium 136 Potassium 4.0 Chloride 99 Carbon Dioxide 21.7 Anion Gap 15 BUN 12 Creatinine 0.85 Estim Creat Clear Calc 64.73 Est GFR (MDRD) Non-Af 74 BUN/Creatinine Ratio 14.2 Glucose 200 H Calcium 9.3 Urine Color Yellow Urine Clarity Clear Urine pH 6.0 Ur Specific [place] 1.020 Urine Protein 30 H Urine Glucose (UA) Normal Urine Ketones Negative Urine Occult Blood 25 H Urine Nitrite Negative Urine Bilirubin Negative Urine Urobilinogen Normal Ur Leukocyte Esterase 100 H Urine RBC 0-5 SEEN Urine WBC 5-10 SEEN Ur Squamous Epith Cells 0-5 SEEN Ur Renal Epithelial Cell 0-5 SEEN Urine Bacteria 3+ Urine Mucus 0 SEEN Discharge Plan Triage Chief Complaint: General Illness ED Provider: Artis David Dx/Rx/DC Orders Clinical Impression: Acute UTI Instructions: UTIs Prescriptions: New cephalexin 500 mg capsule 500 mg PO Q6 Qty: 40 0RF No Action metformin 500 MG tablet 1 tab PO BID atenolol 25 tablet 25 mg PO DAILY losartan 25 MG tablet 25 mg PO QHS omeprazole 20 capsule,delayed release(DR/EC) 20 mg PO DAILY pravastatin 20 MG tablet 20 mg PO QHS hydroxychloroquine 200 MG tablet 200 mg PO BIDCM insulin glargine [Basaglar KwikPen U-100 Insulin] 100 UNIT/ML insulin pen 24 unit SQ QHS PRN PRN (Reason: HYPERGLYCEMIA) Ca-D3-mag uo-zavt-ojr-shanelle-bor [Calcium 600-D3 Plus (mag-zinc)] 600 mg calcium- 20 mcg-50 mg tablet 1 tab PO DAILY aspirin 81 mg capsule 81 mg PO DAILY glipizide 10 mg tablet 10 mg PO BID estradiol [Estrace] 0.01 % (0.1 mg/gram) cream 1 appful vaginal QWEEK Rx Instructions: for 14 days meclizine 25 mg tablet 25 mg PO 4X/DAY PRN PRN (Reason: Dizziness) Qty: 20 0RF Primary Care Provider: Kelly Borden Referrals: Kelly Borden MD [Primary Care Provider] - Print Language: Syriac Disposition Disposition: Home, Self Care
== END 2024-08-28 00:37 | disposition home or self-care (01) ==
PROVIDERS: Emergency Provider Emergency Medicine; PCP Internal Medicine; Visit Provider Emergency Medicine
DX: N39.0 Urinary tract infection, site not specified (principal); E11.9 Type 2 diabetes mellitus without complications; R11.0 Nausea; I10 Essential (primary) hypertension; R42 Dizziness and giddiness; K21.9 Gastro-esophageal reflux disease without esophagitis
CPT/HCPCS: 80048; 81001; 85025; 87631; 96361; 96374; 99284; A4216; J2405

== ENCOUNTER → 2024-10-13 | Outpatient (CLI) | payer MEDICARE, SELFPAY ==
[2024-10-13 10:20] LABS: Absolute Lymphocyte Count 1.83 X10^3/uL (0.83-4.51); Basophil# 0.06 X10^3/uL; Basophil% 1.1 % (0-1); Eosinophil# 0.18 X10^3/uL; Eosinophils% 3.2 % (0-5); Hematocrit 41.4 % (37-47); Hemoglobin 13.6 g/dL (12.0-15.0); Lymphocyte # 1.83 X10^3/ul (0.83-4.51); Lymphocyte % 32.9 % (19-41); Mean Corp Hgb Conc 32.9 g/dL (32-36); Mean Corpuscular Hgb 29.8 pg (27.0-32.0); Mean Corpuscular Volume 90.8 fL (81-99); Mean Platelet Vol. 10.5 fl (6.2-12.0); Monocyte# 0.49 X10^3/uL; Monocyte% 8.8 % (0-10); NRBC Flagged by Analyzer 0 % (0-5); Neutrophil # 3.01 X10^3/uL (2.7-7.7); Platelet Count 296 K/mm3 (150-450); RBC Distribution Width CV 13.3 % (11.6-14.6); RBC Distribution Width SD 45.1 fl (35.1-43.9); Red Blood Count 4.56 M/mm3 (4.2-5.4); White Blood Count 5.6 K/mm3 (4.4-11.0)
[2024-10-13 10:41] LABS: ALB/GLOB Ratio 1.3 RATIO (0.9-2.4); AST(SGOT) 42 U/L (<=31); Alanine Aminotransfer ALT/SGPT 72 U/L (<=34); Albumin, Serum 4.4 g/dL (3.4-4.8); Alkaline Phosphatase 104 U/L (35-104); Anion Gap 12 (5-15); BUN 9 mg/dL (4-19); BUN/Creat Ratio 12.6 RATIO (10-20); Calcium,Total 9.6 mg/dL (7.6-11.0); Carbon Dioxide 27.3 mmol/L (21.0-32.0); Chloride 100 mmol/L (98-108); Creatinine, Serum 0.75 mg/dL (0.70-1.20); EST Glomerular Filtration Rate 85 (>60); Globulin 3.5 g/dL (2.2-4.2); Glucose 153 mg/dL (70-99); Potassium 4.3 mmol/L (3.3-5.1); Protein, Total 7.9 g/dL (5.9-8.4); Sodium Level 140 mmol/L (133-145); Total Bilirubin 0.34 mg/dL (0.00-1.30)
== END | disposition home or self-care (01) ==
LOC: MTLAB 08:12
PROVIDERS: PCP Internal Medicine; Referring Provider Internal Medicine Rheumatology; Visit Provider Internal Medicine Rheumatology
DX: M06.4 Inflammatory polyarthropathy (principal); Z79.899 Other long term (current) drug therapy; R76.8 Other specified abnormal immunological findings in serum; M19.049 Primary osteoarthritis, unspecified hand; M17.0 Bilateral primary osteoarthritis of knee
CPT/HCPCS: 36415; 80053; 85025

== ENCOUNTER → 2024-10-26 | Outpatient (CLI) | payer MEDICARE, SELFPAY ==
--- NOTE | 2024-10-26 07:13 | US_ITS ---
EXAM: US Abdomen Limited, Right Upper Quadrant CLINICAL INDICATION: ELEVATED LIVER ENZYMES TECHNIQUE: Real-time ultrasound of the right upper quadrant with image documentation. COMPARISON: No relevant prior studies available. FINDINGS: LIVER: Liver measures up to 18.1 cm. Fatty infiltration of the liver. No intrahepatic bile duct dilation. GALLBLADDER: Negative Steele's sign was reported by the account executive [employer]. No gallstones. COMMON BILE DUCT: Unremarkable as visualized. No stones. No dilation. Common bile duct measures 0.4 cm in diameter. PANCREAS: Unremarkable as visualized. RIGHT KIDNEY: Unremarkable. No stones. No hydronephrosis. The right kidney measures 12.1 x 4.9 x 5.5 cm. US/Abdomen Limited IMPRESSION: Fatty infiltration of the liver. Reading [facility]
--- OUTSIDE RECORDS SUMMARY | 2024-10-26 07:23 | XMS RPT_ITS | CCD ---
Author Organization [facility] Care Team Providers Care Residential Air Sealing Technician Name Role Phone Iglesia Messina MD Primary Care Provider Iglesia Messina MD Primary Care Provider Hong HEALTHCARE OR MEDICAL.DEBUG TECHNICIAN, Ebony Unavailable Carmen HEALTHCARE OR MEDICAL.RECRUITING ADMINISTRATOR, Tory Unavailable Carmen HEALTHCARE OR MEDICAL.RECRUITING ADMINISTRATOR, Tory Unavailable Michi JACKSON, Dr. Iglesia Burch Primary Care Provider [phone] Joann JACKSON, Dr. Wisdom Emergency Provider Hong HEALTHCARE OR MEDICAL.DEBUG TECHNICIAN, Ebony Unavailable Hong HEALTHCARE OR MEDICAL.DEBUG TECHNICIAN, Ebony Unavailable Dr. Artis David MD Attending Provider Natalee JACKSON, Dr. Jacob Attending Provider Natalee JACKSON, Dr. Jacob Referring Provider Nidia Albright Referring Unavailable Nidia Albright Attending Unavailable Kareemampfiliberto, Iglesia Marcin Primary Care Unavailable Jackie Pereria Attending Unavailable Talampas, Iglesia D Primary Care Unavailable Artis David Attending Unavailable Michi, Iglesia Marcin Primary Care Unavailable Nidia Albright Referring Unavailable Nidia Albright Attending Unavailable Michi, Iglesia Marcin Primary Care Unavailable Nidia Albright Referring Unavailable Nidia Albright Attending Unavailable Talampas, Iglesia D Primary Care Unavailable TALAMPAS, IGLESIA D Primary Care Unavailable TALAMPAS, IGLESIA D Attending Unavailable HONGSHAKAI Attending Unavailable TALAMPAS, IGLESIA D Primary Care Unavailable TALAMPAS, IGLESIA D Primary Care Unavailable EBONY HONG Referring Unavailable TALAMPAS, IGLESIA D Primary Care Unavailable HONG, EBONY Attending Unavailable HONG, EBONY Referring Unavailable TALAMPAS, IGLESIA D Primary Care Unavailable TALAMPAS, IGLESIA D Referring Unavailable TALAMPAS, IGLESIA D Primary Care Unavailable TALAMPAS, IGLESIA D Primary Care Unavailable TALAMPAS, IGLESIA D Attending Unavailable TALAMPAS, IGLESIA D Primary Care Unavailable TALAMPAS, IGLESIA D Referring Unavailable TALAMPAS, IGLESIA D Primary Care Unavailable TALAMPAS, IGLESIA D Referring Unavailable TALAMPAS, IGLESIA D Primary Care Unavailable SONNY ADAMS Referring Unavailable TALAMPAS, IGLESIA D Primary Care Unavailable TALAMPAS, IGLESIA D Primary Care Unavailable TALAMPAS, IGLESIA D Referring Unavailable TALAMPAS, IGLESIA D Primary Care Unavailable JOSHUAIASEFREN Attending Unavailable TALAMPAS, IGLESIA D Referring Unavailable TALAMPAS, IGLESIA D Primary Care Unavailable GOLIAS, EFREN Attending Unavailable TALAMPAS, IGLESIA D Referring Unavailable Allergies Allergy Classification Reported Allergen(s) Allergy Type Date of Onset Reaction(s) Facility (20 sources) Lisinopril; Translations: [LISINOPRIL] Drug Allergy 03-09-2011 Cough [facility] Work Phone: Medications Current Medications Medication Drug Class(es) Dates Sig (Normalized) Sig (Original) [id number] 200 actuat albuterol 0.09 mg/actuat metered dose inhaler (6 sources) beta2-Adrenergic Agonist Start: 04-28-2024 take 1-2 puff(s) by inhalation four times daily as needed for cough albuterol HFA (PROVENTIL HFA) 90 mcg/actuation inhaler Indications: Subacute cough Inhale 1-2 Puffs as instructed four times a day as needed for wheezing/shortnes s of breath (cough). 1 Each 04/28/2024 Active aspirin 81 mg oral tablet (20 sources) Platelet Aggregation Inhibitor, Nonsteroidal Anti-inflammatory Drug Start: 12-31-2023 take 1 capsule by mouth once daily Aspirin 81 mg capsule Active 81 mg PO DAILY December 31, 2023 12:00am Start: 07-20-2018 End: 12-31-2023 take 1 tablet by mouth once daily Aspirin (Aspir 81) 81 MG tablet,delayed release (DR/EC) Discontinued 81 mg PO DAILY July 20, 2018 12:00am December 31, 2023 12:22am Comment on above: Take 81 mg by mouth once daily. atenolol 25 mg oral tablet (20 sources) beta-Adrenergic Britta Start: 07-21-19 End: 07-01-19 take 1 tablet by mouth once daily atenolol (TENORMIN) 25 mg tablet Indications: Essential hypertension Take 1 tablet by mouth once daily. 90 tablet 3 06/02/2024 Active Comment on above: Take 1 tablet by krystal once daily. azelastine hydrochloride 0.206 mg/actuat metered dose nasal spray (20 sources) Histamine-1 Receptor Antagonist Start: 08-26-19 End: 01-19-20 take 1 spray(s) nasal route once daily Azelastine (ASTEPRO ALLERGY) 205.5 mcg (0.15 %) spry Indications: Post-nasal drainage , Seasonal allergic rhinitis, unspecified trigger Use 1 [place] in each nostril once daily. 3 Each 01/19/2024 Active Comment on above: Use 1 [place] in each nostril once daily. benzonatate 100 mg oral capsule (3 sources) Non-narcotic Antitussive Start: 04-26-19 End: 05-11-19 take 1 capsule by mouth every eight hours as needed for cough and cough benzonatate (TESSALON PERLE) 100 mg capsule Indications: Subacute cough Take 1 capsule by mouth every 8 hours as needed for cough for up to 15 days. 30 capsule 04/26/2024 05/11/2024 Active Ca-D3-Mag Rj-Uaif-Xgr-Shanelle-Bor (Calcium 600-D3 Plus (Mag-Zinc)) 600 mg calcium- 20 mcg-50 mg tablet (2 sources) Start: 12-31-19 24 Ca-D3-Mag Sm-Gepw-Agw-Shanelle-Bor (Calcium 600-D3 Plus (Mag-Zinc)) 600 mg calcium- 20 mcg-50 mg tablet Active 1 {tbl} PO DAILY December 31, 2023 12:00am Ca/D3/mag ox/zinc/newspaper copy editor/shanelle/bor (CALCIUM 600-D3 PLUS ORAL) (20 sources) Ca/D3/mag ox/zinc/newspaper copy editor/shanelle/bor (CALCIUM 600-D3 PLUS ORAL) Take 1 capsule by mouth once daily. Active Ca/D3/mag ox/zin c/newspaper copy editor/shanelle/bor (CALCIUM 600-D3 PLUS ORAL) Take 1 capsule by mouth once daily. 0 Active Comment on above: Take 1 capsule by mo [facility] once daily. cephalexin 500 mg oral capsule (2 sources) Cephalosporin Antibacterial Start: 08-28-19 take 1 capsule by mouth every six hours Cephalexin 500 mg capsule Active 500 mg PO EVERY 6 HOURS 40 0 August 27, 2024 12:00am cholecalciferol 0.025 mg oral capsule (20 sources) Vitamin D Start: 03-25-20 take 1 capsule by mouth once daily Cholecalciferol, Vitamin D3, 25 mcg (1,000 unit) cap Indications: Vitamin D deficiency Take 1 capsule by mouth once daily. 03/25/2020 Active Start: 07-20-2018 End: 12-31-2023 Cholecalciferol (Vitamin D3) (Vitamin D) 1,000 UNIT tablet Discontinued 1000 U PO DAILY July 20, 2018 12:00am December 31, 2023 12:27am Comment on above: Take 1 capsule by [facility] once daily. estradiol 0.1 mg/ml vaginal cream (20 sources) Estrogen Start: 12-31-2023 Estradiol (Estrace) 0.01 % (0.1 mg/gram) cream Active 1 NMA VAGINAL EVERY WEEK December 31, 2023 12:00am for 14 days Start: 01-02-2020 End: 05-26-2021 estradiol (ESTRACE) 0.01 % ( 0.1 mg/gram) vaginal cream Indications: Urinary, incontinence, stress female , Atrophic vaginitis use vaginally once or twice weekly as directed 42.5 g 1 05/26/2021 Active Comment on above: use vaginally once o r twice weekly as directed glipiZIDE 10 mg oral tablet (20 sources) Sulfonylurea Start: 12-31-2023 take 1 tablet by mouth twice daily Glipizide 10 mg tablet Active 10 mg PO TWICE A DAY December 31, 2023 12:00am Start: 09-12-2021 End: 07-01-2023 take 1 tablet by mouth twice daily glipiZIDE (GLUCOTROL) 10 mg tablet Indications: Controlled type 2 diabetes mellitus without complication, with long-term current use of insulin (HCC) Take 1 tablet (10 mg) by mouth two times a day. 180 tablet 3 07/01/2023 Active Start: 07-20-2018 End: 12-31-2023 Glipizide 5 tablet Discontin ued 2 {tbl} PO TWICE A DAY July 20, 2018 12:00am December 31, 2023 12:27am Comment on above: Take 2 tablets by mo uth twice daily. Take 1 tablet by krystal th twice daily. Take 1 tablet (10 mg ) by mouth two times a day. hydroxychloroquine sulfate 200 mg oral tablet (20 sources) Antimalarial, Antirheumatic Agent Start: 2015 take 1 tablet by mouth twice daily at mealtime Hydroxychloroquine 200 MG tablet Active 200 mg PO TWICE DAILY WITH MEALS July 20, 2018 12:00am Comment on above: Take 1 tablet by krystal twice daily. (Dr. Albright) 3 ml insulin glargine 100 unt/ml pen injector (16 sources) Insulin Analog Start: 2018 Insulin Glargine (Basaglar Kwikpen U-100 Insulin) 100 UNIT/ML insulin pen Active 24 U SQ AT BEDTIME NEEDED as needed for HYPERGLYCEMIA July 20, 2018 12:00am Start: 07-20-2018 End: 05-26-2022 insulin glargine (BASAGLAR K WIKPEN U-100 INSULIN) 100 unit/mL (3 mL) Indications: diabetes mellitus Inject 24 Units subcutaneously daily at bedtime. 20 Pen 3 03/25/2020 05/26/2021 Discontinued Comment on above: Inject 24 Units subc utaneously daily at bedtime. insulin glargine-yfgn (SEMGLEE,INSULIN GLARG-YFGN,PEN) 100 unit/mL (3 mL) insulin pen (20 sources) Start: 09-14-2024 insulin glargine-yfgn (SEMGLEE,INSULIN GLARG-YFGN,PEN) 100 unit/mL (3 mL) insulin pen Indications: Controlled type 2 diabetes mellitus without complication, with long-term current use of insulin (HCC) Inject 24 Units subcutaneously daily at bedtime. 10 each 4 09/14/2024 Active Start: 01-25-2024 End: 09-14-2024 insulin glargine-yfgn (SEMGL EE,INSULIN GLARG-YFGN,PEN) 100 unit/mL (3 mL) insulin pen Indications: Controlled type 2 diabetes mellitus without complication, with long-term current use of insulin (HCC) Inject 24 Units subcutaneously daily at bedtime. 10 Each 01/25/2024 09/14/2024 Discontinued Start: 01-25-2024 insulin glargi ne-yfgn (SEMGLEE,INSULIN GLARG-YFGN,PEN) 100 unit/mL (3 mL) insulin pen Indications: Controlled type 2 diabetes mellitus without complication, with long-term current use of insulin (HCC) Inject 24 Units subcutaneously daily at bedtime. 10 Each 01/25/2024 Active Start: 07-01-2023 End: 01-24-2024 insulin glargine-yfgn (SEMGL EE,INSULIN GLARG-YFGN,PEN) 100 unit/mL (3 mL) insulin pen Indications: Controlled type 2 diabetes mellitus without complication, with long-term current use of insulin (HCC) Inject 24 Units subcutaneously daily at bedtime. 10 Each 07/01/2023 01/24/2024 Discontinued Start: 07-01-2023 insulin glargi ne-yfgn (SEMGLEE,INSULIN GLARG-YFGN,PEN) 100 unit/mL (3 mL) insulin pen Indications: Controlled type 2 diabetes mellitus without complication, with long-term current use of insulin (HCC) Inject 24 Units subcutaneously daily at bedtime. 10 Each 07/01/2023 Active Start: 05-26-2022 End: 07-01-2023 insulin glargine-yfgn (SEMGL EE,INSULIN GLARG-YFGN,PEN) 100 unit/mL (3 mL) insulin pen Indications: Controlled type 2 diabetes mellitus without complication, with long-term current use of insulin (HCC) Inject 24 Units subcutaneously daily at bedtime. 10 Each 05/26/2022 07/01/2023 Discontinued Start: 05-26-2022 insulin glargi ne-yfgn (SEMGLEE,INSULIN GLARG-YFGN,PEN) 100 unit/mL (3 mL) insulin pen Indications: Controlled type 2 diabetes mellitus without complication, with long-term current use of insulin (HCC) Inject 24 Units subcutaneously daily at bedtime. 10 Each 05/26/2022 Active Comment on above: Inject 24 Units subc utaneously daily at bedtime. loperamide hydrochloride 2 mg oral tablet (4 sources) Opioid Agonist Start: 09-02-19 End: 10-02-19 take 1 tablet by mouth once as needed for diarrhea loperamide HCl (IMODIUM A-D) 2 mg tab Indications: Diarrhea, unspecified type Take 1 tablet by mouth as needed (diarrhea). 30 tablet 09/01/2024 10/01/2024 Active losartan potassium 25 mg oral tablet (20 sources) Angiotensin 2 Receptor Britta Start: 07-21-19 End: 07-25-19 take 1 tablet by mouth at bedtime Losartan 25 MG tablet Active 25 mg PO AT BEDTIME July 20, 2018 12:00am Comment on above: Take 1 tablet by krystal th once daily. meclizine hydrochloride 25 mg oral tablet (20 sources) Antiemetic Start: 12-31-19 take 1 tablet by mouth four times daily as needed for dizziness Meclizine 25 mg tablet Active 25 mg PO 4 TIMES DAILY NEEDED as needed for Dizziness December 31, 2023 12:00am Start: 08-10-2022 End: 07-20-2023 take 1 tablet by mouth every six hours as needed meclizine (ANTIVERT) 25 mg tab Take 1 tablet by mouth every 6 hours as needed (dizziness). 16 tablet 08/10/2022 07/20/2023 Discontinued (Course of therapy completed) Comment on above: Take 1 tablet by krystal th every 6 hours as needed (dizziness). 24 hr metFORMIN hydrochloride 500 mg extended release oral tablet (20 sources) Biguanide Start: 0 End: 5 take 1 tablet by mouth twice daily metFORMIN ER (GLUCOPHAGE XR) 500 mg 24 hr tablet Indications: Controlled type 2 diabetes mellitus without complication, with long-term current use of insulin (HCC) Take 1 tablet by mouth two times a day. 180 tablet 3 07/24/2024 Active Start: 07-20-2018 Metformin 500 MG tablet Active 1 {tbl} PO TWICE A DAY July 20, 2018 12:00am Comment on above: Take 2 tablets by mo uth twice daily. Take 1 tablet by krystal th twice daily. MULTIVITAMIN TAB (20 sources) Start: 02-23-2005 MULTIVITAMIN TAB Take by mouth. 0 02/23/2005 Active Start: 02-23-2005 MULTIVITAMIN T AB Take one(1) tablet daily. 0 02/23/2005 Active Comment on above: Take one(1) tablet d aily. Take by mouth. nitrofurantoin, macrocrystals 25 mg / nitrofurantoin, monohydrate 75 mg oral capsule (1 source) Nitrofuran Antibacterial Start: End: take 1 capsule by mouth twice daily at mealtime nitrofurantoin monohydrate and macrocrystal (MACROBID) 100 mg capsule Indications: Urinary tract infection with hematuria, site unspecified Take 1 capsule by mouth two times a day with meals for 7 days. 14 capsule 09/01/2024 09/08/2024 Active omeprazole 20 mg delayed release oral capsule (20 sources) Proton Pump Inhibitor Start: End: take 1 capsule by mouth once daily Omeprazole 20 capsule,delayed release(DR/EC) Active 20 mg PO DAILY July 20, 2018 12:00am Comment on above: Take 1 capsule by [facility] once daily. ondansetron 4 mg disintegrating oral tablet (4 sources) Serotonin-3 Receptor Antagonist Start: take 1 tablet by mouth every six hours as needed for nausea and nausea ondansetron orally disintegrating (ZOFRAN ODT) 4 mg disintegrating tablet Indications: Nausea Take 1 tablet by mouth every 6 hours as needed. 20 tablet 09/01/2024 Active polyethylene glycol [id number] [id number] mg / potassium chloride 1480 mg / sodium bicarbonate 5720 mg / sodium chloride 55163 mg powder for oral solution (1 source) Osmotic Laxative Start: End: take 420 g by mouth once peg-electrolyte soln (NULYTELY) 420 gram suspension Indications: Colon cancer screening Take 4,000 mL by mouth one time only for 1 dose. 1 Each 0 05/29/2022 05/29/2022 Active Comment on above: Take 4,000 mL by [facility] one time only for 1 dose. pravastatin sodium 20 mg oral tablet (20 sources) HMG-CoA Reductase Inhibitor Start: End: take 1 tablet by mouth at bedtime Pravastatin 20 MG tablet Active 20 mg PO AT BEDTIME July 20, 2018 12:00am Comment on above: Take 1 tablet by krystal th daily at bedtime. Completed/Discontinued Medications Medication Drug Class(es) Dates Sig (Normalized) Sig (Original) acetaminophen 325 mg / HYDROcodone bitartrate 5 mg oral tablet (7 sources) Opioid Agonist Start: 12-04-2020 End: 12-31-2023 Hydrocodone-Acetami nophen 5-325 mg tablet Discontinued 1 {tbl} PO EVERY 6 HOURS as needed for pain 42 7 0 December 04, 2020 December 31, 2023 12:27am Left foot pain Pain in left foot Start: 12-04-2020 take 1 tablet by krystal th every six hours Hydrocodone-Acetaminophen Active 1 TABLE T PO EVERY 6 HOURS 42 7 December 04, 2020 calcium carbonate 1500 mg oral tablet (7 sources) Start: 07-20-2018 End: 12-31-2023 take 1 tablet by mouth once daily Calcium Carbonate 600 MG tablet Discontinued 600 mg PO DAILY July 20, 2018 12:00am December 31, 2023 12:27am cyclobenzaprine hydrochloride 10 mg oral tablet (20 sources) Muscle Relaxant Start: 09-19-2019 End: 07-20-2023 take 1 tablet by mouth every eight hours as needed for pain cyclobenzaprine (FLEXERIL) 10 mg tablet Indications: Neck muscle spasm Take 1 tablet by mouth every 8 hours as needed (FOR PAIN OR MUSCLE SPASM). 30 tablet 09/19/2019 07/20/2023 Discontinued Comment on above: Take 1 tablet by krystal th every 8 hours as needed (FOR PAIN OR MUSCLE SPASM). ketoconazole 20 mg/ml topical cream (1 source) Azole Antifungal Start: 03-25-2020 End: 11-06-2020 ketoconazole (NIZORAL) 2 % cream Apply 1 application to affected area twice daily. Continue till a week after rash resolves 30 g 03/25/2020 11/06/2020 Discontinued Multivitamin (Daily Multiple Vitamin) 1 EACH tablet (7 sources) Start: 07-20-2018 End: 12-31-2023 take 1 tablet by mouth once daily Multivitamin (Daily Multiple Vitamin) 1 EACH tablet Discontinued 1 NMA PO DAILY July 20, 2018 12:00am December 31, 2023 12:27am Start: 07-20-2018 take 1 tablet by krystal th once daily Multivitamin (Daily Multiple Vitamin) 1 EACH tablet Active 1 EACH PO DAILY July 19, 2018 11:00pm Start: 07-20-2018 take 1 tablet by krystal th once daily Multivitamin (Daily Multiple Vitamin) 1 EACH tablet Active 1 EACH PO DAILY July 20, 2018 12:00am phenazopyridine hydrochloride 200 mg oral tablet (1 source) Start: 01-09-2020 End: 11-06-2020 take 1 tablet by mouth every eight hours as needed phenazopyridine (PYRIDIUM) 200 mg tablet Take 1 tablet by mouth three times daily as needed. 6 tablet 01/09/2020 11/06/2020 Discontinued (Course of therapy completed) predniSONE 10 mg oral tablet (10 sources) Start: 08-11-2022 End: 07-20-2023 predniSONE (DELTASONE) 10 mg tablet Indications: Neck pain Take 2 tabs po BID for 2 days then 1 tab po BID for 2 days then 1/2 tab po BID for 2 days then 1/2 tab daily for 2 days then stop 15 tablet 0 08/11/2022 07/20/2023 Discontinued (Course of therapy completed) Comment on above: Take 2 tabs po BID f or 2 days then 1 tab po BID for 2 days then 1/2 tab po BID for 2 days then 1/2 tab daily for 2 days then stop Problems Active Problems Problem Classification Problem Date Documented Da te Episodic/Chronic Deficiency and other anemia (1 source) Iron deficiency anemia; Translations: [Iron deficiency anemia, unspecified] 09-19-2024 Episodic Deficiency and other anemia (1 source) Iron deficiency anemia, unspecified; Translations: [Iron deficiency anemia, unspecified iron deficiency anemia type] Onset: 5 Episodic Diabetes mellitus without complication (20 sources) Type 2 diabetes mellitus without complication; Translations: [Type 2 diabetes mellitus without complications] Onset: 5 Chronic Disorders of lipid metabolism (20 sources) Hyperlipidemia; Translations: [Hyperlipidemia, unspecified] Onset: 5 03-04-2015 Chronic Esophageal disorders (20 sources) Gastroesophageal reflux disease; Translations: [Gastro-esophageal reflux disease without esophagitis] Onset: 5 02-23-2005 Chronic Essential hypertension (20 sources) Essential hypertension; Translations: [Essential (primary) hypertension] Onset: 5 03-04-2015 Chronic Genitourinary symptoms and ill-defined conditions (20 sources) Female stress incontinence; Translations: [Stress incontinence (female) (male)] Onset: 3 08-04-2012 Chronic Genitourinary symptoms and ill-defined conditions (4 sources) Microscopic hematuria; Translations: [Other microscopic hematuria] Onset: 5 09-19-2024 Episodic Malaise and fatigue (2 sources) Fatigue; Translations: [Other fatigue] Onset: 5 09-19-2024 Episodic Menopausal disorders (2 sources) Atrophic vaginitis; Translations: [Postmenopausal atrophic vaginitis] Onset: 5 09-19-2024 Chronic Nausea and vomiting (2 sources) Nausea; Translations: [Nausea] Onset: 5 09-01-2024 Episodic Nutritional deficiencies (6 sources) Vitamin D deficiency; Translations: [Vitamin D deficiency, unspecified] Onset: Chronic Open wounds of extremities (7 sources) Laceration of hand; Translations: [Laceration without foreign body of left hand, initial encounter] 07-21-2018 Episodic Other aftercare (1 source) Long-term current use of drug therapy; Translations: [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] 01-19-2024 Episodic Other connective tissue disease (7 sources) Peroneal tendinitis of left lower limb; Translations: [Peroneal tendinitis, left leg] 12-06-2020 Episodic Other connective tissue disease (7 sources) Disorder of foot; Translations: [Other enthesopathy of left foot and ankle] 12-06-2020 Episodic Other connective tissue disease (7 sources) Foot pain; Translations: [Pain in left foot] 10-31-2020 Episodic Other connective tissue disease (1 source) Pain in left foot; Translations: [Pain in left foot] 09-02-2020 Episodic Other gastrointestinal disorders (2 sources) Diarrhea; Translations: [Diarrhea, unspecified] 01-25-2023 Episodic Other gastrointestinal disorders (1 source) Constipation; Translations: [Constipation, unspecified] 09-19-2024 Episodic Other gastrointestinal disorders (1 source) Constipation, unspecified; Translations: [Constipation, unspecified constipation type] Onset: Episodic Other gastrointestinal disorders (1 source) Diarrhea, unspecified; Translations: [Diarrhea, unspecified type] Onset: Episodic Other lower respiratory disease (2 sources) Dyspnea; Translations: [Shortness of breath] 09-01-2024 Episodic Other lower respiratory disease (2 sources) Paroxysmal nocturnal dyspnea; Translations: [Dyspnea, unspecified] 09-01-2024 Episodic Other lower respiratory disease (1 source) Cough; Translations: [Acute cough] 09-19-2024 Episodic Other lower respiratory disease (1 source) Shortness of breath; Translations: [SOB (shortness of breath)] Onset: Episodic Other lower respiratory disease (1 source) Dyspnea, unspecified; Translations: [PND (paroxysmal nocturnal dyspnea)] Onset: Episodic Other nutritional; endocrine; and metabolic disorders (20 sources) Obesity; Translations: [Obesity, unspecified] Onset: 5 09-02-2014 Chronic Other nutritional; endocrine; and metabolic disorders (1 source) Obesity caused by energy imbalance; Translations: [Other obesity due to excess calories] 08-19-2023 Chronic Other upper respiratory disease (20 sources) Allergic rhinitis; Translations: [Allergic rhinitis, unspecified] Onset: 6 03-10-2006 Chronic Other upper respiratory disease (3 sources) Seasonal allergic rhinitis; Translations: [Other seasonal allergic rhinitis] Chronic Other upper respiratory disease (1 source) Other seasonal allergic rhinitis; Translations: [Seasonal allergic rhinitis, unspecified trigger] Onset: Chronic Residual codes; unclassified (1 source) Flushing; Translations: [Flushing] 09-19-2024 Episodic Residual codes; unclassified (1 source) Illness, unspecified; Translations: [Illness, unspecified] Onset: Episodic Residual codes; unclassified (1 source) Flushing; Translations: [Hot flashes] Onset: 5 Episodic Rheumatoid arthritis and related disease (1 source) Inflammatory polyarthropathy; Translations: [Inflammatory polyarthropathy] Onset: Chronic Spondylosis; intervertebral disc disorders; other back problems (4 sources) Neck pain; Translations: [Cervicalgia] Episodic Sprains and strains (7 sources) Rupture of peroneal tendon; Translations: [Strain of muscle(s) and tendon(s) of peroneal muscle group at lower leg level, unspecified leg, initial encounter] 12-06-2020 Episodic Unclassified (1 source) Acute cough; Translations: [Acute cough] Onset: 5 Unclassified (1 source) Subacute cough; Translations: [Subacute cough] Onset: 5 Urinary tract infections (5 sources) Acute urinary tract infection; Translations: [Urinary tract infection, site not specified] Onset: 5 08-28-2024 Episodic Past or Other Problems Problem Classification Problem Date Documented Da te Episodic/Chronic Conditions associated with dizziness or vertigo (20 sources) Dizziness; Translations: [Dizziness and giddiness] Onset: 01-19-2024 Episodic Other aftercare (1 source) senior care (current) use of insulin; Translations: [Controlled type 2 diabetes mellitus without complication, with long-term current use of insulin (HCC)] Onset: 03-04-2015 Episodic Other aftercare (1 source) Other [facility] (current) drug therapy; Translations: [Encounter for long-term current use of medication] Onset: 01-14-2024 Episodic Other lower respiratory disease (20 sources) Cough; Translations: [Cough] Resolved: 08-27-2008 08-27-2008 Episodic Other non-traumatic joint disorders (17 sources) Hip pain; Translations: [Pain in left hip] Onset: 01-22-2014 Resolved: 12-12-2014 12-12-2014 Episodic Other screening for suspected conditions (not mental disorders or infectious disease) (20 sources) Patient encounter status; Translations: [Encounter for screening for malignant neoplasm of colon] Onset: 08-12-2011 08-12-2011 Episodic Other upper respiratory infections (3 sources) Nasal discharge; Translations: [Postnasal drip] Onset: 01-19-2024 Episodic Screening and history of mental health and substance abuse codes (2 sources) Encounter for screening for depression; Translations: [Encounter for screening examination for other mental health and behavioral disorders] Onset: 01-19-2024 Episodic Results Test Name Value Interpretation Reference Range Facility Urinalysis complete panel (U )on 10-19-2024 Bacteria LM.HPF (Urine sed) [#/Area] Negative Normal Negative [facility] Comment on above: Order Comment: Speci men Type: URINE SPECIMENOrdering Facility: [facility] Address: [address] [place] [address] Performed By: #### 2 4356-8 ####[facility] LABCLIA [id number] [place] [address] [place] Bilirubin Ql (U) Negative Normal Negative [facility] Comment on above: Order Comment: Speci men Type: URINE SPECIMENOrdering Facility: [facility] Address: [address] [place] [address] Performed By: #### 2 4356-8 ####[facility] LABCLIA [id number] [place] [address] [place] Clarity (Unsp spec) Clear Normal Clear [facility] Comment on above: Order Comment: Speci men Type: URINE SPECIMENOrdering Facility: [facility] Address: [address] [place] [address] Performed By: #### 2 4356-8 ####[facility] LABCLIA [id number] [place] [address] [place] Color (U) Yellow Normal Yellow [facility] Comment on above: Order Comment: Speci men Type: URINE SPECIMENOrdering Facility: [facility] Address: [address] [place] [address] Performed By: #### 2 4356-8 ####[facility] LABCLIA [id number] [place] [id number] [place] Epithelial cells LM.HPF (Urine sed) [#/Area] None Seen Normal [facility] Comment on above: Order Comment: Speci men Type: URINE SPECIMENOrdering Facility: [facility] Address: [address] [place] [address] Performed By: #### 2 4356-8 ####[facility] LABCLIA [id number] [place] [id number] [place] Glucose Test strip (U) [Mass/Vol] Negative Normal Negative [facility] Comment on above: Order Comment: Speci men Type: URINE SPECIMENOrdering Facility: [facility] Address: [address] [place] [address] Performed By: #### 2 4356-8 ####[facility] LABCLIA [id number] [place] [id number] [place] Hemoglobin Ql (U) Negative Normal Negative [facility] Comment on above: Order Comment: Speci men Type: URINE SPECIMENOrdering Facility: [facility] Address: [address] [place] [address] Performed By: #### 2 4356-8 ####[facility] LABCLIA [id number] [place] [address] [place] Hyaline casts (Urine sed) [#/Area] 0 /[LPF] Normal 0 /LPF [facility] Comment on above: Order Comment: Speci men Type: URINE SPECIMENOrdering Facility: [facility] Address: [address] [place] [address] Performed By: #### 2 4356-8 ####[facility] LABCLIA [id number] [place] [address] [place] Ketones Ql (U) Negative Normal Negative [facility] Comment on above: Order Comment: Speci men Type: URINE SPECIMENOrdering Facility: [facility] Address: [address] [place] [address] Performed By: #### 2 4356-8 ####[facility] LABCLIA [id number] [place] [id number] [place] Leukocyte esterase Test strip Ql (U) Trace Abnormal Negative [facility] Comment on above: Order Comment: Speci men Type: URINE SPECIMENOrdering Facility: [facility] Address: [address] [place] [address] Performed By: #### 2 4356-8 ####[facility] LABCLIA [id number] [address], [facility] [place] Nitrite Ql (U) Negative Normal Negative [facility] Comment on above: Order Comment: Speci men Type: URINE SPECIMENOrdering Facility: [facility] Address: [address] [place] [address] Performed By: #### 2 4356-8 ####[facility] LABIA [id number] [address], [place] [address] [place] pH (U) 5.5 [pH] Normal <8.5 [facility] Comment on above: Order Comment: Speci men Type: URINE SPECIMENOrdering Facility: [facility] Address: [address] [place] [address] Performed By: #### 2 4356-8 ####[facility] LABIA [id number] [place] [address] [place] Protein (U) [Mass/Vol] Negative Normal Negative [facility] Comment on above: Order Comment: Speci men Type: URINE SPECIMENOrdering Facility: [facility] Address: [address] [place] [address] Performed By: #### 2 4356-8 ####[facility] LABIA [id number] [place] [address] [place] RBC LM.HPF (Urine sed) [#/Area] 0-2 /HPF Normal 0-2 /HPF [facility] Comment on above: Order Comment: Speci men Type: URINE SPECIMENOrdering Facility: [facility] Address: [address] [place] [address] Performed By: #### 2 4356-8 ####[facility] LABIA [id number] [place] [address] [place] Specific gravity (U) [Rel density] 1.014 Normal 1.005-1.030 [facility] Comment on above: Order Comment: Speci men Type: URINE SPECIMENOrdering Facility: [facility] Address: [address] [place] [address] Performed By: #### 2 4356-8 ####[facility] [id number] [place] [address] [place] Specific gravity (U) [Rel density] 1.015 Normal 1.005-1.030 [facility] Comment on above: Order Comment: Speci men Type: URINE SPECIMENOrdering Facility: [facility] Address: [address] [place] [address] Performed By: #### 2 4356-8 ####[facility] [id number] [place] [address] [place] Urobilinogen Ql (U) 0.2 EU/dL Normal 0.2-1.0 EU/dL [facility] Comment on above: Order Comment: Speci men Type: URINE SPECIMENOrdering Facility: [facility] Address: [address] [place] [address] Performed By: #### 2 4356-8 ####[facility] [id number] [place] [address] [place] WBC LM.HPF (Urine sed) [#/Area] 0-5 /HPF Normal 0-5 /HPF [facility] Comment on above: Order Comment: Speci men Type: URINE SPECIMENOrdering Facility: [facility] Address: [address] [place] [address] Performed By: #### 2 4356-8 ####[facility] [id number] [place] [address] [place] Absolute lymphocyte countOrd ered By: Nidia Albright on 10-13-2024 Lymphocytes Auto (Unsp spec) [#/Vol] 1.83 10*3/uL 0.83-4.51 [facility] Absolute neutrophil countOrd ered By: Nidia Albright on 10-13-2024 Neutrophils (Bld) [#/Vol] 3.0 10*3/uL 2.0-7.7 [facility] Anion gap in Serum or Plasma Ordered By: Nidia Albright on 10-13-2024 Anion gap [Moles/Vol] 12 mmol/L 5- [facility] Automated lymphocyte count a s percentage of total leukocytesOrdered By: Nidia Albright on 10-13-2024 Lymphocytes/100 WBC Auto (Unsp spec) 32.9 % 19- [facility] BUN/creatinine ratioOrdered By: Nidia Albright on 10-13-2024 Urea nitrogen/Creatinine [Mass ratio] 12.6 mg/mg 10- [facility] Basophil percentageOrdered B y: Nidia Albright on 10-13-2024 Basophils/100 WBC (Bld) 1.1 % High 0-1 [facility] Bilirubin, totalOrdered By: Nidia Albright on 10-13-2024 Bilirubin [Mass/Vol] 0.34 mg/dL 0.00-1.30 [facility] CBC W/Diff, Automatedon 09-18 Absolute Lymph 1.83 X10 3/uL Normal 0.83-4.51 [facility] Comment on above: Performed By: #### L 500.4050, L100.0100 #### [facility] [address] [place], [address] Absolute Neut 3.0 X10 3/uL Normal 2.0-7.7 [facility] Comment on above: Performed By: #### L 500.4050, L100.0100 #### [facility] [address] [place], [address] Basophils/100 WBC (Bld) 1.1 % High 0-1 [facility] Comment on above: Performed By: #### L 500.4050, L100.0100 #### [facility] [address] [facility] [place], [address] Eosinophils/100 WBC (Bld) 3.2 % Normal 0-5 [facility] Comment on above: Performed By: #### L 500.4050, L100.0100 #### [facility] [address] [place], [address] Erythrocyte distribution width (RBC) [Ratio] 13.3 % Normal 11.6-14.6 [facility] Comment on above: Performed By: #### L 500.4050, L100.0100 #### [facility] [address] [place], [address] Hematocrit (Bld) [Volume fraction] 41.4 % Normal 37-47 [facility] Comment on above: Performed By: #### L 500.4050, L100.0100 #### [facility] [address] [place], [address] Hemoglobin (Bld) [Mass/Vol] 13.6 g/dL Normal 12.0-15.0 [facility] Comment on above: Performed By: #### L 500.4050, L100.0100 #### [facility] [address] [place], [address] IG% 0.000 Normal 0.0-0.9 [facility] Comment on above: Result Comment: IG% - Immature Granulocytes (promyelocytes, myelocytes and metamyelocytes) > 1% indicates that a LEFT SHIFT is Present. Performed By: #### L 500.4050, L100.0100 #### [facility] [address] [place], [address] Lymphocytes/100 WBC (Bld) 32.9 % Normal 19-41 [facility] Comment on above: Performed By: #### L 500.4050, L100.0100 #### [facility] [address] [place], [address] MCH (RBC) [Entitic mass] 29.8 pg Normal 27.0-32.0 [facility] Comment on above: Performed By: #### L 500.4050, L100.0100 #### [facility] [address] [place], [address] MCHC (RBC) [Mass/Vol] 32.9 g/dL Normal 32-36 [facility] Comment on above: Performed By: #### L 500.4050, L100.0100 #### [facility] [address] [place], [address] MCV (RBC) [Entitic vol] 90.8 fL Normal 81-99 [facility] Comment on above: Performed By: #### L 500.4050, L100.0100 #### [facility] [address] [place], [address] Monocytes/100 WBC (Bld) 8.8 % Normal 0-10 [facility] Comment on above: Performed By: #### L 500.4050, L100.0100 #### [facility] [address] [place], [address] Neutrophils/100 WBC (Bld) 54.0 % Normal 47-70 [facility] Comment on above: Performed By: #### L 500.4050, L100.0100 #### [facility] [address] [place], [address] Nucleated RBC (Bld) [#/Vol] 0 10*3/uL Normal 0-5 [facility] Comment on above: Performed By: #### L 500.4050, L100.0100 #### [facility] [address] [place], [address] Platelet mean volume (Bld) [Entitic vol] 10.5 fL Normal 6.2-12.0 [facility] Comment on above: Performed By: #### L 500.4050, L100.0100 #### [facility] [address] [place], [address] Platelets (Bld) [#/Vol] 296 10*3/uL Normal 150-450 [facility] Comment on above: Performed By: #### L 500.4050, L100.0100 #### [facility] [address] [place], [address] RBC (Bld) [#/Vol] 4.56 10*6/uL Normal 4.2-5.4 [facility] Comment on above: Performed By: #### L 500.4050, L100.0100 #### [facility] [address] [place], [address] RDW SD 45.1 fl High 35.1-43.9 [facility] Comment on above: Performed By: #### L 500.4050, L100.0100 #### [facility] [address] [place], [address] WBC (Bld) [#/Vol] 5.6 10*3/uL Normal 4.4-11.0 [facility] Comment on above: Performed By: #### L 500.4050, L100.0100 #### [facility] [address] [place], [address] Carbon dioxide, total [Moles /volume] in Central venous bloodOrdered By: Nidia Albright on 10-13-2024 CO2 [Moles/Vol] 27.3 mmol/L 21.0-32.0 [facility] Chloride assayOrdered By: Ray Albright on 10-13-2024 Chloride [Moles/Vol] 100 mmol/L 98-108 [facility] Comprehensive Metabolic Prof ilon 10-13-2024 Albumin [Mass/Vol] 4.4 g/dL Normal 3.4-4.8 [facility] Comment on above: Performed By: #### L 500.4050, L100.0100 #### [facility] [address] [place], [address] Albumin/Globulin [Mass ratio] 1.3 {ratio} Normal 0.9-2.4 [facility] Comment on above: Performed By: #### L 500.4050, L100.0100 #### [facility] [address] [place], [address] ALK PHOS 104 U/L Normal 35-104 [facility] Comment on above: Performed By: #### L 500.4050, L100.0100 #### [facility] [address] [place], [address] ALT [Catalytic activity/Vol] 72 U/L High <=34 [facility] Comment on above: Performed By: #### L 500.4050, L100.0100 #### [facility] [address] [place], [address] AST [Catalytic activity/Vol] 42 U/L High <=31 [facility] Comment on above: Performed By: #### L 500.4050, L100.0100 #### [facility] [address] [place], [address] Bilirubin [Mass/Vol] 0.34 mg/dL Normal 0.00-1.30 [facility] Comment on above: Performed By: #### L 500.4050, L100.0100 #### [facility] [address] [place], [address] BUN/CRE 12.6 RATIO Normal 10-20 [facility] Comment on above: Performed By: #### L 500.4050, L100.0100 #### [facility] [address] [place], [address] Calcium [Mass/Vol] 9.6 mg/dL Normal 7.6-11.0 [facility] Comment on above: Performed By: #### L 500.4050, L100.0100 #### [facility] [address] [place], [address] Chloride [Moles/Vol] 100 mmol/L Normal 98-108 [facility] Comment on above: Performed By: #### L 500.4050, L100.0100 #### [facility] [address] [place], [address] CO2 [Moles/Vol] 27.3 mmol/L Normal 21.0-32.0 [facility] Comment on above: Performed By: #### L 500.4050, L100.0100 #### [facility] [address] [place], [address] Creatinine [Mass/Vol] 0.75 mg/dL Normal 0.70-1.20 [facility] Comment on above: Performed By: #### L 500.4050, L100.0100 #### [facility] [address] [place], [address] GAP 12 Normal 5-15 [facility] Comment on above: Performed By: #### L 500.4050, L100.0100 #### [facility] [address] [place], [address] GFR/1.73 sq M.predicted among non-blacks MDRD (S/P/Bld) [Vol rate/Area] 85 mL/min/{1.73_m2} Normal >60 [facility] Comment on above: Result Comment: mL/m in/1.73m2 CKD-EPI Creatinine Equation (2020) Performed By: #### L 500.4050, L100.0100 #### [facility] [address] [place], [address] Globulin (S) [Mass/Vol] 3.5 g/dL Normal 2.2-4.2 [facility] Comment on above: Performed By: #### L 500.4050, L100.0100 #### [facility] [address] [place], [address] Glucose [Mass/Vol] 153 mg/dL High 70-99 [facility] Comment on above: Performed By: #### L 500.4050, L100.0100 #### [facility] [address] [place], [address] Potassium [Moles/Vol] 4.3 mmol/L Normal 3.3-5.1 [facility] Comment on above: Performed By: #### L 500.4050, L100.0100 #### [facility] [address] [place], [address] Sodium [Moles/Vol] 140 mmol/L Normal 133-145 [facility] Comment on above: Performed By: #### L 500.4050, L100.0100 #### [facility] [address] [place], [address] T PROT 7.9 g/dL Normal 5.9-8.4 [facility] Comment on above: Performed By: #### L 500.4050, L100.0100 #### [facility] [address] [place], [address] Urea nitrogen [Mass/Vol] 9 mg/dL Normal 4-19 [facility] Comment on above: Performed By: #### L 500.4050, L100.0100 #### [facility] [address] [place], [address] Eosinophil percentageOrdered By: Nidia Albright on 10-13-2024 Eosinophils/100 WBC (Bld) 3.2 % 0-5 [facility] Erythrocyte distribution wid th ratioOrdered By: Nidia Albright on 10-13-2024 Erythrocyte distribution width (RBC) [Ratio] 13.3 % 11.6-14.6 [facility] Erythrocyte distribution wid th standard deviationOrdered By: Nidia Albright on 10-13-2024 Erythrocyte distribution width (RBC) [Ratio] 45.1 fl High 35.1-43.9 [facility] Glomerular filtration rate ( GFR) estimation/1.73 sq m using serum, plasma, or whole bOrdered By: Nidia Albright on 10-13-2024 GFR/1.73 sq M.predicted among non-blacks MDRD (S/P/Bld) [Vol rate/Area] 85 mL/min/{1.73_m2} >60 [facility] Comment on above: mL/min/1.73m2 CKD-EP I Creatinine Equation (2020) Hematocrit Auto (Bld) [Volum e fraction]Ordered By: Nidia Albright on 10-13-2024 Hematocrit (Bld) [Volume fraction] 41.4 % 37-47 [facility] Hemoglobin measurementOrdere d By: Nidia Albright on 10-13-2024 Hemoglobin (Bld) [Mass/Vol] 13.6 g/dL 12.0-15.0 [facility] Immature granulocytes/100 WB C Auto (Bld)Ordered By: Nidia Albright on 10-13-2024 Immature granulocytes/100 WBC (Bld) 0.000 % 0.0-0.9 [facility] Comment on above: IG% - Immature Granu locytes (promyelocytes, myelocytes and metamyelocytes) > 1% indicates that a LEFT SHIFT is Present. Laboratory - Chemistry and C hemistry - challengeOrdered By: Nidia Albright on 10-13-2024 AST [Catalytic activity/Vol] 42 U/L High <32 [facility] MCV (mean corpuscular volume ) determinationOrdered By: Nidia Albright on 10-13-2024 MCV (RBC) [Entitic vol] 90.8 fL 81-99 [facility] Mean corpuscular hemoglobin (MCH) determinationOrdered By: Nidia Albright on 10-13-2024 MCH (RBC) [Entitic mass] 29.8 pg 27.0-32.0 [facility] Mean corpuscular hemoglobin concentration (MCHC) determinationOrdered By: Nidia Albright on 10-13-2024 MCHC (RBC) [Mass/Vol] 32.9 g/dL 32-36 [facility] Mean platelet volume determi nationOrdered By: Nidia Albright on 10-13-2024 Platelet mean volume (Bld) [Entitic vol] 10.5 fL 6.2-12.0 [facility] Monocyte percentageOrdered B y: Nidia Albright on 10-13-2024 Monocytes/100 WBC (Bld) 8.8 % 0-10 [facility] Neutrophil percentageOrdered By: Nidia Albright on 10-13-2024 Neutrophils/100 WBC (Bld) 54.0 % 47-70 [facility] Nucleated red blood cell per centageOrdered By: Nidia Albright on 10-13-2024 Nucleated RBC/100 WBC (Bld) [Ratio] 0 % 0-5 [facility] Platelet countOrdered By: Ray Albright on 10-13-2024 Platelets (Bld) [#/Vol] 296 10*3/uL 150-450 [facility] Potassium measurement (mass/ volume)Ordered By: Nidia Albright on 10-13-2024 Potassium (Unsp spec) [Mass/Vol] 4.3 mmol/L 3.3-5.1 [facility] RBC Auto (Bld) [#/Vol]Ordere d By: Nidia Albright on 10-13-2024 RBC (Bld) [#/Vol] 4.56 10*6/uL 4.2-5.4 [facility] Serum creatinine measurement (mass/volume)Ordered By: Nidia Albright on 10-13-2024 Creatinine [Mass/Vol] 0.75 mg/dL 0.70-1.20 [facility] Serum globulin measurementOr dered By: Nidia Albright on 10-13-2024 Globulin (S) [Mass/Vol] 3.5 g/dL 2.2-4.2 [facility] Serum glucose measurement (m ass/volume)Ordered By: Nidia Albright on 10-13-2024 Glucose [Mass/Vol] 153 mg/dL High 70-99 [facility] Serum or plasma alanine gandhi otransferase (ALT) measurementOrdered By: Nidia Albrgiht on 10-13-2024 ALT [Catalytic activity/Vol] 72 U/L High <35 [facility] Serum or plasma albumin kashmir urement (mass/volume)Ordered By: Nidia Albright on 10-13-2024 Albumin [Mass/Vol] 4.4 g/dL 3.4-4.8 [facility] Serum or plasma albumin/glob ulin mass ratioOrdered By: Nidia Albright on 10-13-2024 Albumin/Globulin [Mass ratio] 1.3 {ratio} 0.9-2.4 [facility] Serum or plasma alkaline gil sphatase measurementOrdered By: Nidia Albright on 10-13-2024 ALP [Catalytic activity/Vol] 104 U/L 35-104 [facility] Serum or plasma calcium kashmir urement (mass/volume)Ordered By: Nidia Albright on 10-13-2024 Calcium [Mass/Vol] 9.6 mg/dL 7.6-11.0 [facility] Serum or plasma urea nitroge n measurement (mass/volume)Ordered By: Nidia Albright on 10-13-2024 Urea nitrogen [Mass/Vol] 9 mg/dL 4-19 [facility] Sodium levelOrdered By: Mario Albright on 10-13-2024 Sodium [Moles/Vol] 140 mmol/L 133-145 [facility] Total proteinOrdered By: Aparna Albright on 10-13-2024 Protein [Mass/Vol] 7.9 g/dL 5.9-8.4 [facility] White blood cell (WBC) count Ordered By: Nidia Albright on 10-13-2024 WBC (Bld) [#/Vol] 5.6 10*3/uL 4.4-11.0 [facility] Bacteria Ur Culton Bacteria identified Cx Nom (U) ORGANISM ID: 1 <10,000 CFU/ml Normal urogenital onofre Normal [facility] Comment on above: Performed By: #### 6 30-4 #### [facility] CLIA [id number] [address] [place] [address] [place] CNOVon 09-19-2024 CNOV Office Visit (INTMWS ) RACHEL HOLLOWAY ([id number]) 1955 F Date Time Provider Department 09/19/24 9:20 AM EBONY HONG During your visit today, we recorded the following information about you: Temperature Pulse Respiration Blood pressure 97.7 degrees 61/minute 16/minute 132/78 Weight 80 kg Ebony Hong APRN.DEBUG TECHNICIAN 09/19/2024 10:45 AM Signed Subjective Patient ID: Rachel is a 69 year old female who presents for No chief complaint on file.. HPI Rachel is a 69-year-old female with a history of diabetes and hypertension, rheumatological disorder on plaquenil, presenting for evaluation of persistent UTI symptoms and new onset diarrhea. She was seen in office September 01, 2024, having had an ER visit. She reported UTI symptoms persisting despite treatment from the ER. Medication was changed. Noted nausea and diarrhea, concern for possible norovirus. she was provided with symptomatic treatments. She was advised to follow-up in 3 to 7 days if not feeling improved. Returns today with report of fatigue, decreased appetite. Fatigue and Anorexia: - Persistent fatigue and anorexia following recent illness. - [place] slightly better while on antibiotics but symptoms returned post-treatment. - Reports early satiety without nausea. - Attempting to maintain hydration with water and Gatorade Zero. Abdominal Discomfort: - Recent episode of lower abdominal discomfort, described as feeling bloated and tender. - Symptoms improved today after a bowel movement. - Usual bowel pattern includes daily diarrhea, attributed to medication. - Recent constipation for 3-4 days, followed by two bowel movements today: one soft and one liquid. - Denies hematochezia or melena; stools are black due to iron supplementation. - No dysuria, urgency, or frequency reported. Respiratory Symptoms: - Recent onset of cold symptoms x3-4 days, including rhinorrhea, nasal congestion, cough, and sneezing. - Used inhaler last night with perceived benefit. - History of allergies, usually managed with azelastine nasal spray; has not been using it recently. Menopausal Symptoms: - Experiencing hot flashes, similar to those during menopause, which occurred a long time ago. - Inquires about the need for estrogen therapy. - Has been using Estrace cream inconsistently. No chest pain shortness of breath or palpitations. Last 14 Encounter BP Readings: Date: BP: 09/19/2024 132/78 09/01/2024 152/79 07/24/2024 120/76 04/26/2024 160/80 02/15/2024 135/86 01/19/2024 122/66 07/20/2023 128/76 02/18/2023 136/78 01/04/2023 124/80 08/25/2022 124/70 08/11/2022 164/96 08/10/2022 162/90 06/11/2022 100/57 05/29/2022 138/78 DIABETES MELLITUS: Notes fasting BS 150s. Has resumed metformin. Patient's last HgA1C was Hemoglobin A1C (%) Date Value 07/14/2024 7.6 01/14/2024 7.4 05/26/2021 7.5 11/01/2020 7.4 ) Notes hot flashes, has not been using topical estrogen consistently. ROS Constitutional: (+) fatigue, (+) chills, (+) weight loss Ears/Nose/Mouth/Throat : (+) runny nose, (+) nasal congestion, (+) sneezing Respiratory: (+) cough Gastrointestinal: (+) poor appetite, (+) early satiety, (+) abdominal bloating, (+) lower abdominal tenderness, (+) constipation, (+) diarrhea, (+) black stools, (+) nausea, (-) heartburn Genitourinary: (-) dysuria, (-) urinary frequency, (-) urinary urgency Endocrine: (+) hot flashes Objective There were no vitals taken for this visit. Physical Exam Vitals and nursing note reviewed. Constitutional: Appearance: Normal appearance. HENT: Head: Normocephalic and atraumatic. Nose: Mucosal edema and rhinorrhea present. Rhinorrhea is clear. Mouth/Throat: Lips: [place]. Mouth: Mucous membranes are moist. Pharynx: Oropharynx is clear. Tonsils: No tonsillar exudate. Eyes: Conjunctiva/sclera: Conjunctivae normal. Cardiovascular: Rate and Rhythm: Normal rate and regular rhythm. Pulses: Carotid pulses are 2+ on the right side and 2+ on the left side. Radial pulses are 2+ on the right side and 2+ on the left side. Pulmonary: Effort: Pulmonary effort is normal. Breath sounds: Normal breath sounds. Abdominal: General: Bowel sounds are normal. Palpations: Abdomen is soft. Musculoskeletal: Right lower leg: No edema. Left lower leg: No edema. Skin: General: Skin is warm and dry. Neurological: General: No focal deficit present. Mental Status: She is alert and oriented to person, place, and time. 1. Urinary tract infection with hematuria, site unspecified (N39.0) 2. Microscopic hematuria (R31.29) - Recent urinalysis showed persistent hematuria, likely secondary to recent UTI. - No dysuria, urgency, or frequency reported. - Recheck urinalysis in one month to ensure resolution of hematuria. - If hematuria persists, referral to urology for further evaluation. (more content not included)... Normal [facility] UA DIP, URINE (POC)on 2024 BILIRUBIN UA (POCT) Negative Negative [facility] CLARITY UA (POCT) Clear [facility] COLOR UA (POCT) Yellow [facility] GLUCOSE UA (POCT) Negative Negative mg/dL [facility] Hemoglobin Ql (U) Small Abnormal Negative [facility] Interpretation and review of laboratory results Abnormal [facility] KETONE UA (POCT) Negative Negative mg/dL [facility] LEUKOCYTES UA (POCT) Negative Negative [facility] NITRITE UA (POCT) Negative Negative [facility] PH UA (POCT) 6 4.5 - 8.0 [facility] Protein Ql (U) Negative Negative mg/dL [facility] SPECIFIC GRAVITY UA (POCT) 1.02 1.005 - 1.030 [facility] UROBILINOGEN UA (POCT) 0.2 Verna l E.U./dL [facility] Location:[facility], [address] [place] [address], [place], [place], [id number] [place] [address] POINT OF CARE [facility] ECHOon 09-15-2024 Echocardiography Echocardiography Report: Transthoracic Echo [facility] Date of service: 09/15/2024 7:55:05 AM RUFFER Ordering physician: EBONY HONG Exam indication: Shortness of Breath Technologist: Hodan Hoang RD Interpreting physician: Malcolm Gonzales MD PATIENT: Name: RACHEL HOLLOWAY : 1955 Age: 69 years Gender: F History of hypertension, diabetes mellitus and dyslipidemia. Primary rhythm: sinus. Height: 162.60 cm BSA: 1.91 m Weight: 81.00 kg BMI: 30.6 kg/m Heart rate 65 bpm Blood pressure 170/79 mmHg Technically difficult exam due to body habitus. Color Doppler was utilized to interrogate the cardiac valves assessed and spectral Doppler was utilized to determine the flow velocities and pressure gradients reported in this exam. MEASUREMENTS: Value Indexed Normal Max aortic dimension 3.5 cm Ao < 3.8 Left atrial volume 56 ml (biplane A-L) 29 ml/m Benitez <= 34 LV ID (diastole) 3.8 cm (2D) 2.00 cm/m LV ID (systole) 2.5 cm (2D) 1.29 cm/m IVS, leaflet tips 1.0 cm (2D) Posterior wall thickness 1.1 cm (2D) Left ventricular mass 126 g (2D) 66 g/m Ejection Fraction 55 % (visual est.) EF > 54 FINDINGS: LEFT VENTRICLE The left ventricle is normal in size. Left ventricular systolic function is normal. Normal left ventricular diastolic function. Mitral annular lateral E/e': 9.0. Mitral annular septal E/e': 9.0. Wall Motion: All scored segments are normal. RIGHT VENTRICLE The right ventricle is normal in size. Right ventricular systolic function is normal. RV systolic tissue Doppler velocity is 9.0 cm/s. Tricuspid annular displacement is 1.8 cm. Estimated right ventricular systolic pressure is not reported due to an insufficient tricuspid regurgitation signal. Estimated right atrial pressure is not included as the IVC was not seen. LEFT ATRIUM The left atrial cavity is normal in size. Pulmonary Veins: The pulmonary venous pattern showed normal systolic flow. RIGHT ATRIUM The right atrium is unseen or not interrogated. MITRAL VALVE The mitral valve leaflets are structurally normal. There is no mitral valve regurgitation. The pressure half time is 53 msec. The peak mitral E/A ratio is 1.16. The average mitral E/e' ratio is 9.0. The mitral flow deceleration time is 184 msec. TRICUSPID VALVE The tricuspid valve leaflets are structurally normal. There is trace tricuspid valve regurgitation. AORTIC VALVE The aortic valve cusps are structurally normal. There is no aortic valve stenosis. There is no aortic valve regurgitation. Tricuspid aortic valve. The peak gradient is 5 mmHg (peak velocity = 108.9 cm/s). PULMONIC VALVE The pulmonic valve cusps are structurally normal. There is no pulmonic valve stenosis. There is mild (1+) pulmonic valve regurgitation. AORTA The visualized aorta is normal in size. Measurements - Mid ascending aorta 3.5 cm. INTERATRIAL SEPTUM There is no evidence of intracardiac shunting as detected by Doppler. PERICARDIUM There is no pericardial effusion. There is an epicardial fat pad. CONCLUSIONS: - Technically difficult exam due to body habitus. - Exam indication: Shortness of Breath - The left ventricle is normal in size. Left ventricular systolic function is normal. EF = 55 5% (visual est.). Normal left ventricular diastolic function. - The right ventricle is normal in size. Right ventricular systolic function is normal. - There are no significant valvular abnormalities. - The patient has not had a prior CC echocardiographic exam for comparison. * * * Final * * * [facility] [employer] [facility] : [id number] Normal [facility] Bacteria Ur Culton Bacteria identified Cx Nom (U) CULTURE, URINE: No growth (<1,000 CFU/ml) Normal [facility] Comment on above: Performed By: #### 6 30-4 #### [facility] CLIA [id number] [address] [place] [address] [place] CNOVon 09-01-2024 CNOV Office Visit (INTMWS ) RACHEL HOLLOWAY ([id number]) 1955 F Date Time Provider Department 09/01/24 12:00 PM EBONY HONG INTMWS During your visit today, we recorded the following information about you: Temperature Pulse Respiration Blood pressure 98.6 degrees 67/minute 14/minute 152/79 Weight 81 kg Shaka Hongi, [facility] 09/01/2024 12:47 PM Signed Subjective Patient ID: Rachel is a 69 year old female who presents for Hospital F/U. HPI Rachel is a 69-year-old female with a history of diabetes and hypertension, rheumatological disorder on plaquenil, presenting for evaluation of persistent UTI symptoms and new onset diarrhea. UTI: - Recent ED visit confirmed UTI; Rachel reports clear urine and absence of typical dysuria, urgency, or frequency. - Started on antibiotics Wednesday; no improvement in symptoms. - Experiencing chills, low-grade fevers, and diaphoresis. - Reports significant fatigue and weakness. Diarrhea: - Onset of diarrhea approximately 3 days ago, with frequent loose stools occurring every 30-60 minutes. - Increased fluid intake, including Gatorade, to prevent dehydration. - Denies hematochezia or melena. - Reports nausea but denies emesis. Diabetes: - Holding metformin when not eating; inconsistent medication adherence. - Fasting blood glucose this morning was 156 mg/dL. Today reports symptoms are about the same as when she seen in ER. Heartburn: yes Reflux: yes Abdominal pain: no Nausea: yes Vomiting: no Diarrhea: x 3 days many times per day, now down to once daily Constipation: no BRBPR: no Black tarry: no Dysuria: no Urgency: no Frequency: no Fever: up to 100F Has been pushing fluid, some sports drinks Review of outside records show that she was seen at [facility] emergency department August 28, 2024 for general illness, noting weakness all over and nauseated. Also noted dizziness described as lightheadedness. History of vertigo that felt different. COVID testing completed and negative. Treated with Zofran and IV fluids. CBC and metabolic panel unremarkable. Urinalysis consistent with infection. No signs of sepsis or renal problem. She was treated with Keflex as an outpatient. Advised dfkt-isa-oqbdynz remedies for her body aches. She was discharged home. HTN: - Experiencing mild dyspnea, particularly at night, with a sensation of needing to take deep breaths. - Reports palpitations and difficulty sleeping due to dyspnea. - Denies chest pain or edema. Last 3 Encounter BP Readings: Date: BP: 09/01/2024 152/79 07/24/2024 120/76 04/26/2024 160/80 DIABETES MELLITUS: Notes fasting BS 150s. Has been holding metformin. Patient's last HgA1C was Hemoglobin A1C (%) Date Value 07/14/2024 7.6 01/14/2024 7.4 05/26/2021 7.5 11/01/2020 7.4 ) ROS Constitutional: (+) fever, (+) chills, (+) fatigue Cardiovascular: (-) chest pain, (+) palpitations, (-) edema Respiratory: (+) shortness of breath (nocturnal), (-) shortness of breath on exertion Gastrointestinal: (+) heartburn, (+) nausea, (+) diarrhea, (-) vomiting, (-) abdominal pain Genitourinary: (-) dysuria, (-) urinary frequency, (-) urinary urgency Skin: (+) hot flashes, (+) clamminess Neurological: (+) dizziness, (-) gait disturbance Objective BP 152/79 Pulse 67 Temp 37 ?C (98.6 ?F) Resp 14 Wt 81 kg (178 lb 9.2 oz) SpO2 96% BMI 30.65 kg/m? Physical Exam Vitals and nursing note reviewed. Constitutional: Appearance: Normal appearance. HENT: Head: Normocephalic and atraumatic. Eyes: Conjunctiva/sclera: Conjunctivae normal. Cardiovascular: Rate and Rhythm: Normal rate and regular rhythm. Pulses: Carotid pulses are 2+ on the right side and 2+ on the left side. Radial pulses are 2+ on the right side and 2+ on the left side. Pulmonary: Effort: Pulmonary effort is normal. Breath sounds: Normal breath sounds. Abdominal: General: Bowel sounds are normal. Palpations: Abdomen is soft. Musculoskeletal: Right lower leg: No edema. Left lower leg: No edema. Skin: General: Skin is warm and dry. Neurological: General: No focal deficit present. Mental Status: She is alert and oriented to person, place, and time. 1. Urinary tract infection with hematuria, site unspecified (N39.0) - Recent ER visit confirmed UTI by urinalysis, did not see a culture; initial antibiotic therapy seems ineffective. - Ordered repeat urinalysis with culture. - Discontinued cephalexin, to start macrobid. Cipro and bactrim interact with her plaquenil - Follow-up Wednesday or Wednesday if not feeling improved. 2. Nausea (R11.0) - Prescribed antiemetic medication to be taken around the clock for 1-2 days. - Advised to maintain hydration with Gatorade, broth, and water. 3. Diarrhea, unspecified type (R19.7) - Suspect gastroenteritis in addition to UTI, possibly no (more content not included)... Normal [facility] UA DIP, URINE (POC)on 2024 BILIRUBIN UA (POCT) Negative Negative [facility] CLARITY UA (POCT) [facility] COLOR UA (POCT) Dark yellow [facility] GLUCOSE UA (POCT) Negative Negative mg/dL [facility] Hemoglobin Ql (U) Trace-intact Abnormal Negative [facility] Interpretation and review of laboratory results Abnormal [facility] KETONE UA (POCT) Negative Negative mg/dL [facility] LEUKOCYTES UA (POCT) Negative Negative [facility] NITRITE UA (POCT) Negative Negative [facility] PH UA (POCT) 5.5 4.5 - 8.0 [facility] Protein Ql (U) 30 mg/dL Abnormal Negative [facility] SPECIFIC GRAVITY UA (POCT) >=1.030 1.005 - 1.030 [facility] UROBILINOGEN UA (POCT) 0.2 Verna l E.U./dL [facility] Location:[facility], [address] [place] [address], [place], [place], [id number] [place] [address] POINT OF CARE [facility] Emergency Department Summary on 08-28-2024 Emergency Department Summary [facility] Medical Records Department [address] [place] [address] Emergency Department Summary 08/28/24 MR#: [id number] Acct: [id number] Name: RACHEL HOLLOWAY Rep #: [id number] : 1955 69 From: Artis David MD PCP: Dr. Iglesia Messina MD Status:DEP ER Location: ED HPI History of Present Illness Chief Complaint: General Illness Informant: patient Onset/Context/Timing Onset: Today and Hours Context: Sudden Onset Timing: Continuous Quality: Dizzy/lightheaded Worsened by: Nothing Relieved by: Nothing Associated Symptoms Associated Symptoms: Weak all over, nauseated Narrative Narrative: Patient presents with the above symptoms. Started spontaneously. Reports dizziness but describes it as a lightheadedness. She has a history of vertigo but this feels different. She denies any vision changes, speech changes, facial droop, focal weakness or numbness. No chest pain or shortness of breath. No new medications. No fevers or recent illnesses. Recent Illness/Hospitalizatio n: No PFSH PFSH Medical History Hypertension Post-menopausal Insulin dependent diabetes mellitus Diabetes Arthritis Bladder disease Gastric reflux Non-smoker Home Medications ???Medication ???Instructions ???Recorded ???Last Taken ???Type atenolol 25 mg tablet 25 mg PO DAILY 07/20/18 12/06/20 H istory hydroxychloroquine 200 mg tablet 200 mg PO BIDCM 07/20/18 Unknown H istory insulin glargine 100 unit/mL (3 24 unit SQ QHS PRN PRN 07/20/18 Un known History mL) subcutaneous pen (Basaglar HYPERGLYCEMIA KwikPen U-100 Insulin) losartan 25 mg tablet 25 mg PO QHS 07/20/18 12/06/20 His tory metformin 500 mg tablet 1 tab PO BID 07/20/18 Unknown Hist ory omeprazole 20 mg capsule,delayed 20 mg PO DAILY 07/20/18 Unknown Hi story release pravastatin 20 mg tablet 20 mg PO QHS 07/20/18 Unknown Hist ory aspirin 81 mg capsule 81 mg PO DAILY 12/31/23 Unknown Hi story calcium 600 mg-D3 20 mcg-magnesium 1 tab PO DAILY 12/31/23 Unknown History 50 yk-Vt-xehldg-cornelius-belen mely tablet (Calcium 600-D3 Plus (mag-zinc)) estradiol 0.01% (0.1 mg/gram) 1 appful vaginal QWEEK 12/31/23 Un known History vaginal cream (Estrace) glipizide 10 mg tablet 10 mg PO BID 12/31/23 Unknown Hist ory meclizine 25 mg tablet 25 mg PO 4X/DAY PRN PRN Dizziness 12/31/23 Unknown Rx #20 tabs cephalexin 500 mg capsule 500 mg PO Q6 #40 CAPSULES 08/27/24 Unknown Rx Allergy/AdvReac Type Severity Reaction Status Date / Time No Known Allergies Allergy Verified 08/27/24 21:34 Social History Smoking Status: Never smoker ROS ROS ED Constitutional Constitutional ED: Denies chills or fever(s) Eyes Eyes: Denies blurry vision, change in vision or diplopia ENT ENT ED: Denies rhinorrhea or sore throat Cardiovascular Cardiovascular: Denies chest pain, palpitations or racing heartbeat Respiratory/Chest Respiratory/Chest: Denies cough, dyspnea or sputum Gastrointestinal Gastrointestinal: Reports nausea; Denies abdominal pain or diarrhea Genitourinary Genitourinary ED: Denies dysuria, hematuria or urinary frequency Musculoskeletal Musculoskeletal: Reports arthralgias and myalgias; Denies back pain or neck pain Integumentary Denies rash Neurologic Neurologic: Reports weakness; Denies headache(s) or paresthesias Psychiatric Psychiatric: Denies anxiety or depression EXAM Physical Exam Const Vital Signs: 08/27/24 21:33 08/27/24 21:34 08/27/24 21:42 Temperature 100.5 F H 100.5 F H Temperature Source Oral Oral Pulse Rate 97 97 Respiratory Rate 18 18 Respiratory Effort Normal Non-Labored Respiratory Pattern Normal Blood Pressure 173/80 H 173/80 H Blood Pressure Mean 111 111 Pulse Ox 98 98 Oxygen Delivery Method Room Air Room Air 08/27/24 22:46 08/27/24 23:50 Temperature 100.5 F H 99 F Temperature Source Oral Oral Pulse Rate 97 100 Respiratory Rate 18 16 Respiratory Effort Respiratory Pattern Blood Pressure 168/79 H 141/67 H Blood Pressure Mean 108 91 Pulse Ox 98 93 Oxygen Delivery Method Room Air Room Air Positive well nourished and well developed General Appearance ED: well developed HEENT Reports moist mucous membranes Negative for trauma or tenderness Eyes PERRL and EOMs intact bilaterally Neck supple Resp normal respiratory effort and clear to auscultation bilaterally Cardio regular rate and regular rhythm GI normal to inspection, nondistended, normoactive bowel sounds Extremity normal to inspection General Extremety ED: Negative for edema or tenderness General Extremity: Negative for edema Neuro oriented x3, CN's II-XII intact bilaterally and no sensory deficits (more content not included)... Normal [facility] M100.678on 08-28-2024 M100.678 SARS-CoV-2 (COVID 19 ) Negative INFLUENZA A Negative INFLUENZA B Negative RSV PCR Negative Normal [facility] Comment on above: Performed By: #### M 100.678, L400.0001 ####[facility] [address] [place], [address] Absolute lymphocyte countOrd ered By: Artis David on 08-27-2024 Lymphocytes Auto (Unsp spec) [#/Vol] 0.50 10*3/uL Low 0.83-4.51 [facility] Absolute neutrophil countOrd ered By: Artis David on 08-27-2024 Neutrophils (Bld) [#/Vol] 6.8 10*3/uL 2.0-7.7 [facility] Anion gap in Serum or Plasma Ordered By: Artis David on 08-27-2024 Anion gap [Moles/Vol] 15 mmol/L 5-15 [facility] Automated lymphocyte count a s percentage of total leukocytesOrdered By: Artis David on 08-27-2024 Lymphocytes/100 WBC Auto (Unsp spec) 6.7 % Low 19-41 [facility] BUN/creatinine ratioOrdered By: Artis David on 08-27-2024 Urea nitrogen/Creatinine [Mass ratio] 14.2 mg/mg 10- [facility] Basic Metabolic Profile (BMP )on 08-27-2024 BUN/CRE 14.2 RATIO Normal -20 [facility] Comment on above: Performed By: #### L 500.2500, L100.0100 #### [facility] [address] [place], [address] Calcium [Mass/Vol] 9.3 mg/dL Normal 7.6-11.0 [facility] Comment on above: Performed By: #### L 500.2500, L100.0100 #### [facility] [address] [place], [address] Chloride [Moles/Vol] 99 mmol/L Normal 98-108 [facility] Comment on above: Performed By: #### L 500.2500, L100.0100 #### [facility] [address] [place], [address] CO2 [Moles/Vol] 21.7 mmol/L Normal 21.0-32.0 [facility] Comment on above: Performed By: #### L 500.2500, L100.0100 #### [facility] [address] [place], [address] Creatinine [Mass/Vol] 0.85 mg/dL Normal 0.70-1.20 [facility] Comment on above: Performed By: #### L 500.2500, L100.0100 #### [facility] [address] [place], [address] ECRCL 64.73 ml/min Normal 50-250 [facility] Comment on above: Performed By: #### L 500.2500, L100.0100 #### [facility] [address] [place], [address] GAP 15 Normal 5-15 [facility] Comment on above: Performed By: #### L 500.2500, L100.0100 #### [facility] [address] [place], [address] GFR/1.73 sq M.predicted among non-blacks MDRD (S/P/Bld) [Vol rate/Area] 74 mL/min/{1.73_m2} Normal >60 [facility] Comment on above: Result Comment: mL/m in/1.73m2 CKD-EPI Creatinine Equation (2020) Performed By: #### L 500.2500, L100.0100 #### [facility] [address] [place], [address] Glucose [Mass/Vol] 200 mg/dL High 70-99 [facility] Comment on above: Performed By: #### L 500.2500, L100.0100 #### [facility] [address] [place], [address] Potassium [Moles/Vol] 4.0 mmol/L Normal 3.3-5.1 [facility] Comment on above: Performed By: #### L 500.2500, L100.0100 #### [facility] [address] [place], [address] Sodium [Moles/Vol] 136 mmol/L Normal 133-145 [facility] Comment on above: Performed By: #### L 500.2500, L100.0100 #### [facility] [address] [place], [address] Urea nitrogen [Mass/Vol] 12 mg/dL Normal 4-19 [facility] Comment on above: Performed By: #### L 500.2500, L100.0100 #### [facility] [address] [place], [address] Basophil percentageOrdered B y: Artis David on 08-27-2024 Basophils/100 WBC (Bld) 0.4 % 0-1 [facility] Bilirubin Test strip Ql (U)O rdered By: Artis David on 08-27-2024 Bilirubin Ql (U) Negative Negative [facility] CBC W/Diff, Automatedon 08-17 Absolute Lymph 0.50 X10 3/uL Low 0.83-4.51 [facility] Comment on above: Performed By: #### L 500.2500, L100.0100 #### [facility] [address] [place], [address] Absolute Neut 6.8 X10 3/uL Normal 2.0-7.7 [facility] Comment on above: Performed By: #### L 500.2500, L100.0100 #### [facility] [address] [place], [address] Basophils/100 WBC (Bld) 0.4 % Normal 0-1 [facility] Comment on above: Performed By: #### L 500.2500, L100.0100 #### [facility] [address] [place], [address] Eosinophils/100 WBC (Bld) 0.7 % Normal 0-5 [facility] Comment on above: Performed By: #### L 500.2500, L100.0100 #### [facility] [address] [place], [address] Erythrocyte distribution width (RBC) [Ratio] 13.3 % Normal 11.6-14.6 [facility] Comment on above: Performed By: #### L 500.2500, L100.0100 #### [facility] [address] [place], [address] Hematocrit (Bld) [Volume fraction] 36.4 % Low 37-47 [facility] Comment on above: Performed By: #### L 500.2500, L100.0100 #### [facility] [address] [place], [address] Hemoglobin (Bld) [Mass/Vol] 12.1 g/dL Normal 12.0-15.0 [facility] Comment on above: Performed By: #### L 500.2500, L100.0100 #### [facility] [address] [place], [address] IG% 0.400 Normal 0.0-0.9 [facility] Comment on above: Result Comment: IG% - Immature Granulocytes (promyelocytes, myelocytes and metamyelocytes) > 1% indicates that a LEFT SHIFT is Present. Performed By: #### L 500.2500, L100.0100 #### [facility] [address] [place], [address] Lymphocytes/100 WBC (Bld) 6.7 % Low 19-41 [facility] Comment on above: Performed By: #### L 500.2500, L100.0100 #### [facility] [address] [place], [address] MCH (RBC) [Entitic mass] 30.3 pg Normal 27.0-32.0 [facility] Comment on above: Performed By: #### L 500.2500, L100.0100 #### [facility] [address] [place], [address] MCHC (RBC) [Mass/Vol] 33.2 g/dL Normal 32-36 [facility] Comment on above: Performed By: #### L 500.2500, L100.0100 #### [facility] [address] [place], [address] MCV (RBC) [Entitic vol] 91.2 fL Normal 81-99 [facility] Comment on above: Performed By: #### L 500.2500, L100.0100 #### [facility] [address] [place], [address] Monocytes/100 WBC (Bld) 1.2 % Normal 0-10 [facility] Comment on above: Performed By: #### L 500.2500, L100.0100 #### [facility] [address] [place], [address] Neutrophils/100 WBC (Bld) 90.6 % High 47-70 [facility] Comment on above: Performed By: #### L 500.2500, L100.0100 #### [facility] [address] [place], [address] Nucleated RBC (Bld) [#/Vol] 0 10*3/uL Normal 0-5 [facility] Comment on above: Performed By: #### L 500.2500, L100.0100 #### [facility] [address] [place], [address] Platelet mean volume (Bld) [Entitic vol] 10.1 fL Normal 6.2-12.0 [facility] Comment on above: Performed By: #### L 500.2500, L100.0100 #### [facility] [address] [place], [address] Platelets (Bld) [#/Vol] 250 10*3/uL Normal 150-450 [facility] Comment on above: Performed By: #### L 500.2500, L100.0100 #### [facility] [address] [place], [address] RBC (Bld) [#/Vol] 3.99 10*6/uL Low 4.2-5.4 [facility] Comment on above: Performed By: #### L 500.2500, L100.0100 #### [facility] [address] [place], [address] RDW SD 43.8 fl Normal 35.1-43.9 [facility] Comment on above: Performed By: #### L 500.2500, L100.0100 #### [facility] [address] [place], [address] WBC (Bld) [#/Vol] 7.5 10*3/uL Normal 4.4-11.0 [facility] Comment on above: Performed By: #### L 500.2500, L100.0100 #### [facility] [address] [place], [address] Carbon dioxide, total [Moles /volume] in Central venous bloodOrdered By: Artis David on 08-27-2024 CO2 [Moles/Vol] 21.7 mmol/L 21.0-32.0 [facility] Chloride assayOrdered By: Keon David on 08-27-2024 Chloride [Moles/Vol] 99 mmol/L 98-108 [facility] Eosinophil percentageOrdered By: Artis David on 08-27-2024 Eosinophils/100 WBC (Bld) 0.7 % 0-5 [facility] Erythrocyte distribution wid th ratioOrdered By: Artis David on 08-27-2024 Erythrocyte distribution width (RBC) [Ratio] 13.3 % 11.6-14.6 [facility] Erythrocyte distribution wid th standard deviationOrdered By: Artis David on 08-27-2024 Erythrocyte distribution width (RBC) [Ratio] 43.8 fl 35.1-43.9 [facility] Glomerular filtration rate ( GFR) estimation/1.73 sq m using serum, plasma, or whole bOrdered By: Artis David on 08-27-2024 GFR/1.73 sq M.predicted among non-blacks MDRD (S/P/Bld) [Vol rate/Area] 74 mL/min/{1.73_m2} >60 [facility] Comment on above: mL/min/1.73m2 CKD-EP I Creatinine Equation (2020) Hematocrit Auto (Bld) [Volum e fraction]Ordered By: Artis David on 08-27-2024 Hematocrit (Bld) [Volume fraction] 36.4 % Low 37-47 [facility] Hemoglobin measurementOrdere d By: Artis David on 08-27-2024 Hemoglobin (Bld) [Mass/Vol] 12.1 g/dL 12.0-15.0 [facility] Immature granulocytes/100 WB C Auto (Bld)Ordered By: Artis David on 08-27-2024 Immature granulocytes/100 WBC (Bld) 0.400 % 0.0-0.9 [facility] Comment on above: IG% - Immature Granu locytes (promyelocytes, myelocytes and metamyelocytes) > 1% indicates that a LEFT SHIFT is Present. Influenza virus A and B and SARS-CoV-2 (COVID-19) and Respiratory syncytial virus RNAOrdered By: Artis David on 08-27-2024 SARS-CoV-2 (COVID-19) RNA ELIZABETH+probe Ql (Unsp spec) [facility] Ketones Test strip Ql (U)Ord ered By: Artis David on 08-27-2024 Ketones Ql (U) Negative Negative [facility] MCV (mean corpuscular volume ) determinationOrdered By: Artis David on 08-27-2024 MCV (RBC) [Entitic vol] 91.2 fL 81-99 [facility] Mean corpuscular hemoglobin (MCH) determinationOrdered By: Artis David on 08-27-2024 MCH (RBC) [Entitic mass] 30.3 pg 27.0-32.0 [facility] Mean corpuscular hemoglobin concentration (MCHC) determinationOrdered By: Artis David on 08-27-2024 MCHC (RBC) [Mass/Vol] 33.2 g/dL 32-36 [facility] Mean platelet volume determi nationOrdered By: Artis David on 08-27-2024 Platelet mean volume (Bld) [Entitic vol] 10.1 fL 6.2-12.0 [facility] Microscopic analysis of urin e for red blood cells (RBC)Ordered By: Artis David on 08-27-2024 Microscopic analysis of urine for red blood cells (RBC) 0-5 SEEN /hpf 0-5 [facility] Monocyte percentageOrdered B y: Artis David on 08-27-2024 Monocytes/100 WBC (Bld) 1.2 % 0-10 [facility] Mucus LM Ql (Urine sed)Order ed By: Artis David on 08-27-2024 Mucus Ql (Urine sed) 0 SEEN /hpf [facility] Neutrophil percentageOrdered By: Artis David on 08-27-2024 Neutrophils/100 WBC (Bld) 90.6 % High 47-70 [facility] Nitrite Test strip Ql (U)Ord ered By: Artis David on 08-27-2024 Nitrite Ql (U) Negative Negative [facility] Nucleated red blood cell per centageOrdered By: Artis David on 08-27-2024 Nucleated RBC/100 WBC (Bld) [Ratio] 0 % 0-5 [facility] Platelet countOrdered By: Keon David on 08-27-2024 Platelets (Bld) [#/Vol] 250 10*3/uL 150-450 [facility] Potassium measurement (mass/ volume)Ordered By: Artis David on 08-27-2024 Potassium (Unsp spec) [Mass/Vol] 4.0 mmol/L 3.3-5.1 [facility] Protein Test strip Ql (U)Ord ered By: Artis David on 08-27-2024 Protein Ql (U) 30 mg/dl High Negative [facility] RBC Auto (Bld) [#/Vol]Ordere d By: Artis Joann on 08-27-2024 RBC (Bld) [#/Vol] 3.99 10*6/uL Low 4.2-5.4 [facility] Serum creatinine measurement (mass/volume)Ordered By: Artis David on 08-27-2024 Creatinine [Mass/Vol] 0.85 mg/dL 0.70-1.20 [facility] Serum glucose measurement (m ass/volume)Ordered By: Artis David on 08-27-2024 Glucose [Mass/Vol] 200 mg/dL High 70-99 [facility] Serum or plasma calcium kashmir urement (mass/volume)Ordered By: Artis David on 08-27-2024 Calcium [Mass/Vol] 9.3 mg/dL 7.6-11.0 [facility] Serum or plasma urea nitroge n measurement (mass/volume)Ordered By: Artis David on 08-27-2024 Urea nitrogen [Mass/Vol] 12 mg/dL 4-19 [facility] Sodium levelOrdered By: Marshall David on 08-27-2024 Sodium [Moles/Vol] 136 mmol/L 133-145 [facility] Squamous epithelial cells de tection in urine sediment by light microscopyOrdered By: Artis David on 08-27-2024 Epithelial cells.squamous LM Ql (Urine sed) 0-5 SEEN /hpf 5-10 [facility] Urinalysis, Completeon 08-27 BACTERIA 3+ /hpf Normal None Seen [facility] Comment on above: Order Comment: CLEAN CATCH Performed By: #### M 100.678, L400.0001 #### [facility] [address] [place], [place], [address] EPI,RENAL 0-5 SEEN Normal 0-5 [facility] Comment on above: Order Comment: CLEAN CATCH Performed By: #### M 100.678, L400.0001 #### [facility] [address] [place], [address] EPI,SQUAMOUS 0-5 SEEN Normal 5-10 [facility] Comment on above: Order Comment: CLEAN CATCH Performed By: #### M 100.678, L400.0001 #### [facility] [address] [place], [address] RBC 0-5 SEEN Normal 0-5 [facility] Comment on above: Order Comment: CLEAN CATCH Performed By: #### M 100.678, L400.0001 #### [facility] [address] [place], [address] WBC 5-10 SEEN Normal 0-5 [facility] Comment on above: Order Comment: CLEAN CATCH Performed By: #### M 100.678, L400.0001 #### [facility] [address] [place], [address] Mucus Ql (Urine sed) 0 SEEN Normal [facility] Comment on above: Order Comment: CLEAN CATCH Performed By: #### M 100.678, L400.0001 #### [facility] [address] [place], [address] Urine clarityOrdered By: Ryan David on 08-27-2024 Clarity (U) Clear Clear [facility] Urine color determinationOrd ered By: Artis David on 08-27-2024 Color (U) Yellow Yellow [facility] Urine glucose detectionOrder ed By: Artis David on 08-27-2024 Glucose Ql (U) Normal mg/dl Normal [facility] Urine leukocyte esterase det ection by dipstickOrdered By: Artis David on 08-27-2024 Leukocyte esterase Test strip Ql (U) 100 /ul High Negative [facility] Urine pHOrdered By: Artis christopher on 08-27-2024 pH (U) 6.0 [pH] 5.0 - 8.0 [facility] Urine sediment bacteria coun t by microscopy (number/high power field)Ordered By: Artis David on 08-27-2024 Bacteria LM.HPF (Urine sed) [#/Area] 3 /[HPF] None Seen [facility] Urine sediment renal epithel ial cell count by microscopy (number/high power field)Ordered By: Artis David on 08-27-2024 Epithelial cells.renal LM.HPF (Urine sed) [#/Area] 0 /[HPF] 0-5 [facility] Urine specific gravity measu rementOrdered By: Artis David on 08-27-2024 Specific gravity (U) [Rel density] 1.020 1.002-1.030 [facility] Urine urobilinogen measureme ntOrdered By: Artis David on 08-27-2024 Urobilinogen Ql (U) Normal mg/dl Normal [facility] White blood cell (WBC) count Ordered By: Artis David on 08-27-2024 WBC (Bld) [#/Vol] 7.5 10*3/uL 4.4-11.0 [facility] White blood cell countOrdere d By: Artis David on 08-27-2024 White blood cell count 5-10 SEEN /hpf 0-5 [facility] CNOVon 07-24-2024 CNOV Office Visit (INTMWS ) RACHEL HOLLOWAY ([id number]) 1955 F Date Time Provider Department 07/24/24 9:00 AM IGLESIA MESSINA INTMWS During your visit today, we recorded the following information about you: Pulse Respiration Blood pressure Weight 60/minute 12/minute 120/76 82.1 kg Iglesia Messina MD 07/24/2024 9:51 AM Signed This note was created using NoteWriter. Subjective Rachel Holloway is a 69 year old female. Patient presents with: 6 month f/up Rachel is a 69-year-old female with a history of DM, GERD, and HLD, presenting for a 6-month follow-up visit. Rachel reports doing well and successfully avoiding illnesses during the winter season. She is currently taking a calcium and vitamin D supplement but notes that it contains only 10 mg of vitamin D. She has completed the bottle and is considering increasing her vitamin D intake. She is also using Astepro nasal spray for decongestion and has sufficient supply. She has a history of a persistent cough for which she has albuterol on hand. She denies any current swelling. Recent lab results show a blood glucose level of 115 mg/dL, normal liver and kidney function tests, normal electrolytes, and a normal CBC. Her lipid panel shows an HDL of 76 mg/dL, triglycerides under 150 mg/dL, and an LDL of 68 mg/dL. Her HbA1c is in the 7% range. Vitamin D levels have dipped slightly but are still better than in June of the previous year. She is currently taking metformin, omeprazole, and pravastatin, and requests refills for these medications. She also requests a new prescription for test strips, which she uses twice daily, and needles for her insulin. She denies needing lancets at this time. She is also using Estrace and has a sufficient supply. She is taking Plaquenil, managed by Dr. Albright, and Semglee, with refills available. Her losartan prescription will in September so refill needed. She has a history of vertigo and is currently managing it with Antivert. She has a history of receiving the Zostavax vaccine in 2017 and is considering the Shingrix vaccine. She has an upcoming eye exam scheduled with Dr. Thakkar. PAST MEDICAL HISTORY Diagnosis Date Arthritis Cough Esophageal reflux Neurogenic bladder 05/2018 Had urodynamics and cystoscopy by Dr. Cortez, she recommends interstim Other and unspecified hyperlipidemia Recurrent UTI Type II or unspecified type diabetes mellitus without mention of complication, not stated as uncontrolled Unspecified essential hypertension mild Current Outpatient Medications Medication Sig glipiZIDE (GLUCOTROL) 10 mg tablet Take 1 tablet (10 mg) by mouth two times a day. atenolol (TENORMIN) 25 mg tablet Take 1 tablet by mouth once daily. albuterol HFA (PROVENTIL HFA) 90 mcg/actuation inhaler Inhale 1-2 Puffs as instructed four times a day as needed for wheezing/shortness of breath (cough). insulin glargine-yfgn (SEMGLEE,INSULIN GLARG-YFGN,PEN) 100 unit/mL (3 mL) insulin pen Inject 24 Units subcutaneously daily at bedtime. meclizine (ANTIVERT) 25 mg tab Take 25 mg by mouth four times a day as needed. Azelastine (ASTEPRO ALLERGY) 205.5 mcg (0.15 %) spry Use 1 [place]ett in each nostril once daily. Lancets lancets Test blood sugar(s) 2 times daily or as instructed. Dx: Type 2 DM - Controlled E11.9 Insulin: Yes estradiol (ESTRACE) 0.01 % (0.1 mg/gram) vaginal cream use vaginally once or twice weekly as directed Cholecalciferol, Vitamin D3, 25 mcg (1,000 unit) cap Take 1 capsule by mouth once daily. Lancets (ACCU-CHEK SOFTCLIX LANCETS) lancets Use as instructed. Dx: E11.9, Z79.4 . Insulin: Yes. hydroxychloroquine (PLAQUENIL) 200 mg tablet Take 1 tablet by mouth twice daily. (Dr. Albright) aspirin, enteric coated (ASPIRIN, ENTERIC COATED) 81 mg EC tablet Take 81 mg by mouth once daily. MULTIVITAMIN TAB Take by mouth. metFORMIN ER (GLUCOPHAGE XR) 500 mg 24 hr tablet Take 1 tablet by mouth two times a day. omeprazole (PRILOSEC) 20 mg capsule Take 1 capsule by mouth once daily. pravastatin (PRAVACHOL) 20 mg tablet Take 1 tablet by mouth daily at bedtime. blood sugar diagnostic (BLOOD GLUCOSE TEST) test strip One Touch Verio. Test blood sugar(s) 2 times daily or as instructed. Dx: Type 2 DM - Controlled E11.9 Insulin: Yes. insulin needles, DISPOSABLE, (PEN NEEDLE) 31 gauge x 5/16 Use one needle per dose. 1 per day. Diagnoses: E11.9, Z79.4 losartan (COZAAR) 25 mg tablet Take 1 tablet by mouth once daily. Ca/D3/mag ox/zinc/newspaper copy editor/shanelle/bor (CALCIUM 600-D3 PLUS ORAL) Take 1 capsule by mouth once daily. (Patient not taking: Reported on 01/19/2024) No current facility-administered medications for this visit. Review of Systems Objective BP 120/76 Pulse 60 Resp 12 Wt 82.1 kg (181 lb) BMI 31.07 kg/m? Last 5 Encounter Wt Readings: Date: Wt: 07/24/2024 82.1 kg (181 lb) 04/26/2024 82.6 kg (182 lb (more content not included)... Normal [facility] 25(OH)D3 SerPl-mCncon 2024 25-hydroxyvitamin D3 [Mass/Vol] 30.6 ng/mL Low 31.0-80.0 [facility] Comment on above: Order Comment: Speci men Type: BLOOD SPECIMENOrdering Facility: [facility] Address: [address] [place] [address] Result Comment: Clas sification of 25 [place] Vitamin D status: Deficiency/Insufficiency: < or = 30 ng/ml. Sufficiency/Optimal Levels: 31-80 ng/mL Toxicity: > 100 ng/mL. Test performed by chemiluminescent immunoassay. Performed By: #### 1 989-3 ####[facility] [id number] [place] [address] [place] CBC panel Auto (Bld)on 07-14 Erythrocyte distribution width (RBC) [Ratio] 13.0 % Normal 11.5-15.0 [facility] Comment on above: Order Comment: Speci men Type: BLOOD SPECIMENOrdering Facility: [facility] Address: [address] [place] [address] Performed By: #### 5 8410-2 ####[facility] [id number] [address] [place] Hematocrit (Bld) [Volume fraction] 39.2 % Normal 36.0-46.0 [facility] Comment on above: Order Comment: Speci men Type: BLOOD SPECIMENOrdering Facility: [facility] Address: [address] [place] [address] Performed By: #### 5 8410-2 ####[facility] [id number] [place] [address] [place] Hemoglobin (Bld) [Mass/Vol] 13.1 g/dL Normal 11.5-15.5 [facility] Comment on above: Order Comment: Speci men Type: BLOOD SPECIMENOrdering Facility: [facility] Address: [address] [place], [place] [address] Performed By: #### 5 8410-2 ####[facility] UMER [id number] [address] [place] MCH (RBC) [Entitic mass] 29.9 pg Normal 26.0-34.0 [facility] Comment on above: Order Comment: Speci men Type: BLOOD SPECIMENOrdering Facility: [facility] Address: [address] [place], [place] [address] Performed By: #### 5 8410-2 ####[facility]NAAd[facility] [id number] [address] [place] MCHC (RBC) [Mass/Vol] 33.4 g/dL Normal 30.5-36.0 [facility] Comment on above: Order Comment: Speci men Type: BLOOD SPECIMENOrdering Facility: [facility] Address: [address] [place], [place] [address] Performed By: #### 5 8410-2 ####[facility]NAA [id number] [address] [place] MCV (RBC) [Entitic vol] 89.5 fL Normal 80.0-100.0 [facility] Comment on above: Order Comment: Speci men Type: BLOOD SPECIMENOrdering Facility: [facility] Address: [address] [place], [place] [address] Performed By: #### 5 8410-2 ####[facility] [id number] [place] [address] [place] Nucleated RBC (Bld) [#/Vol] 10*3/uL Normal <0.01 [facility] Comment on above: Order Comment: Speci men Type: BLOOD SPECIMENOrdering Facility: [facility] Address: [address] [place], [place] [address] Performed By: #### 5 8410-2 ####[facility] JESSICANCBRENNAA [id number] [place] [address] [place] Platelet mean volume (Bld) [Entitic vol] 9.8 fL Normal 9.0-12.7 [facility] Comment on above: Order Comment: Speci men Type: BLOOD SPECIMENOrdering Facility: [facility] Address: [address] [place] [address] Performed By: #### 5 8410-2 ####[facility] [id number] [place] [address] [place] Platelets (Bld) [#/Vol] 277 10*3/uL Normal 150-400 [facility] Comment on above: Order Comment: Speci men Type: BLOOD SPECIMENOrdering Facility: [facility] Address: [address] [place] [address] Performed By: #### 5 8410-2 ####[facility] [id number] [place] [address] [place] RBC (Bld) [#/Vol] 4.38 10*6/uL Normal 3.90-5.20 [facility] Comment on above: Order Comment: Speci men Type: BLOOD SPECIMENOrdering Facility: [facility] Address: [address] [place], [place] [address] Performed By: #### 5 8410-2 ####[facility] [id number] [place] [address] [place] WBC (Bld) [#/Vol] 6.26 10*3/uL Normal 3.70-11.00 [facility] Comment on above: Order Comment: Speci men Type: BLOOD SPECIMENOrdering Facility: [facility] Address: [address] [place] [address] Performed By: #### 5 8410-2 ####[facility] [id number] [place] [address] [place] Comprehensive metabolic 2000 panelon 07-14-2024 Albumin [Mass/Vol] 4.4 g/dL Normal 3.9-4.9 [facility] Comment on above: Order Comment: Speci men Type: BLOOD SPECIMENOrdering Facility: [facility] Address: [address] [place] [address] Performed By: #### 6 30-4 #### [facility] CLIA [id number] [address] [place] [address] [place] ALP [Catalytic activity/Vol] 85 U/L Normal 34-123 [facility] Comment on above: Order Comment: Speci men Type: BLOOD SPECIMENOrdering Facility: [facility] Address: [address] [place] [address] Performed By: #### 6 30-4 #### [facility] CLIA [id number] [address] [place] [address] [place] ALT [Catalytic activity/Vol] 18 U/L Normal 7-38 [facility] Comment on above: Order Comment: Speci men Type: BLOOD SPECIMENOrdering Facility: [facility] Address: [address] [place] [address] Performed By: #### 6 30-4 #### [facility] CLIA [id number] [address] [place] [address] [place] Anion gap [Moles/Vol] 12 mmol/L Normal 8-15 [facility] Comment on above: Order Comment: Speci men Type: BLOOD SPECIMENOrdering Facility: [facility] Address: [address] [place] [address] Performed By: #### 6 30-4 #### [facility] CLIA [id number] [address] [place] [address] [place] AST [Catalytic activity/Vol] 23 U/L Normal 13-35 [facility] Comment on above: Order Comment: Speci men Type: BLOOD SPECIMENOrdering Facility: [facility] Address: [address] [place] [address] Performed By: #### 6 30-4 #### [facility] CLIA [id number] [address] [place] [address] [place] Bilirubin [Mass/Vol] 0.3 mg/dL Normal 0.2-1.[address] [facility] Comment on above: Order Comment: Speci men Type: BLOOD SPECIMENOrdering Facility: [facility] Address: [address] [place] [address] Performed By: #### 6 30-4 #### [facility] CLIA [id number] [address] [place] [address] [place] Calcium [Mass/Vol] 9.6 mg/dL Normal 8.5-10.2 [facility] Comment on above: Order Comment: Speci men Type: BLOOD SPECIMENOrdering Facility: [facility] Address: [address] [place] [address] Performed By: #### 6 30-4 #### [facility] CLIA [id number] [address] [place] [address] [place] Chloride [Moles/Vol] 100 mmol/L Normal 98-[address] [facility] Comment on above: Order Comment: Speci men Type: BLOOD SPECIMENOrdering Facility: [facility] Address: [address] [place] [address] Performed By: #### 6 30-4 #### [facility] CLIA [id number] [address] [place] [address] [place] CO2 [Moles/Vol] 29 mmol/L Normal 22-30 [facility] Comment on above: Order Comment: Speci men Type: BLOOD SPECIMENOrdering Facility: [facility] Address: [address] [place] [address] Performed By: #### 6 30-4 #### [facility] CLIA [id number] [address] [place], [place] [address] [place] Creatinine [Mass/Vol] 0.65 mg/dL Normal 0.58-0.96 [facility] Comment on above: Order Comment: Juan ordoñez Type: BLOOD SPECIMENOrdering Facility: [facility] Address: [address] [place] [address] Performed By: #### 6 30-4 #### [facility] CLIA [id number] [address] [place] [address] [place] [facility] Creatinine and Glomerular filtration rate.predicted panel (S/P/Bld) 95 mL/min/1.73m??? Normal >=60 [facility] Comment on above: Order Comment: Juan ordoñez Type: BLOOD SPECIMENOrdering Facility: [facility] Address: [address] [place] [address] Result Comment: Pam mated Glomerular Filtration Rate (eGFR) is calculated using the 2020 CKD-EPI creatinine equation. This equation utilizes serum creatinine, sex, and age as parameters. The creatinine assay has traceable calibration to isotope dilution-mass spectrometry. Refer to KDIGO guidelines for clinical interpretation. In patients with unstable renal function, e.g. those with acute kidney injury, the eGFR may not accurately reflect actual GFR. Performed By: #### 6 30-4 #### [facility] CLIA [id number] [address] [place] [address] [place] Glucose [Mass/Vol] 115 mg/dL High 74-99 [facility] Comment on above: Order Comment: Juan ordoñez Type: BLOOD SPECIMENOrdering Facility: [facility] Address: [address] [place] [address] Result Comment: The [place] [employer] (ADA) provides guidance for cutoff values for fasting glucose and random glucose. The ADA defines fasting as no caloric intake for at least 8 hours. Fasting plasma glucose results between 100 to 125 mg/dL indicate increased risk for diabetes (prediabetes). Fasting plasma glucose results greater than or equal to 126 mg/dL meet the criteria for diagnosis of diabetes. In the absence of unequivocal hyperglycemia, results should be confirmed by repeat testing. In a patient with classic symptoms of hyperglycemia or hyperglycemic crisis, random plasma glucose results greater than or equal to 200 mg/dL meet the criteria for diagnosis of diabetes. Reference: Standards of Medical Care in Diabetes 2016, [place] Diabetes Association. Diabetes Care. 2016.39(Suppl 1). Performed By: #### 6 30-4 #### [facility] CLIA [id number] [address] [place] [address] [place] Potassium [Moles/Vol] 3.9 mmol/L Normal 3.7-5.1 [facility] Comment on above: Order Comment: Speci men Type: BLOOD SPECIMENOrdering Facility: [facility] Address: [address] [place] [address] Performed By: #### 6 30-4 #### [facility] CLIA [id number] [address] [place] [address] [place] Protein [Mass/Vol] 7.6 g/dL Normal 6.3-8.0 [facility] Comment on above: Order Comment: Speci men Type: BLOOD SPECIMENOrdering Facility: [facility] Address: [address] [place] [address] Performed By: #### 6 30-4 #### [facility] CLIA [id number] [address] [place] [address] [place] Sodium [Moles/Vol] 141 mmol/L Normal 136-144 [facility] Comment on above: Order Comment: Speci men Type: BLOOD SPECIMENOrdering Facility: [facility] Address: [address] [place] [address] Performed By: #### 6 30-4 #### [facility] CLIA [id number] [address] [place] [address] [place] Urea nitrogen [Mass/Vol] 10 mg/dL Normal 7-21 [facility] Comment on above: Order Comment: Speci men Type: BLOOD SPECIMENOrdering Facility: [facility] Address: [address] [place] [address] Performed By: #### 6 30-4 #### [facility] IA [id number] [address] [place] [address] HbA1c (Bld)on 07-14-2024 Average glucose Estimated from glycated hemoglobin (Bld) [Mass/Vol] 171 mg/dL Normal [facility] Comment on above: Order Comment: Speci men Type: BLOOD SPECIMENOrdering Facility: [facility] Address: [address] [place] [address] Result Comment: eAG: (Estimated average glucose) is a calculated value from HgbA1c and is computer help desk representative of the average blood glucose level in the last 2-3 month period. Performed By: #### 6 30-4 #### [facility] IA [id number] [address] [place] [address] OF [facility] HbA1c (Bld) [Mass fraction] 7.6 % High 4.3-5.6 [facility] Comment on above: Order Comment: Juan ordoñez Type: BLOOD SPECIMENOrdering Facility: [facility] Address: [address] [place] [address] Result Comment: Amer [place] Diabetes Association guidelines indicate that patients with HgbA1c in the range 5.7-6.4% are at increased risk for development of diabetes, and intervention by lifestyle modification may be beneficial. HgbA1c greater or equal to 6.5% is considered diagnostic of diabetes. Performed By: #### 6 30-4 #### [facility] IA [id number] [address] [place] [address] [place] Lipid 1996 panelon 5 Cholesterol [Mass/Vol] 168 mg/dL Normal <200 [facility] Comment on above: Order Comment: Juan ordoñez Type: BLOOD SPECIMENOrdering Facility: [facility] Address: [address] [place] [address] Result Comment: <200 mg/dL, Desirable 200-239 mg/dL, Borderline high >239 mg/dL, High Performed By: #### 6 30-4 #### [facility] CLIA [id number] [address] [place] [address] OF [facility] Cholesterol in HDL [Mass/Vol] 76 mg/dL Normal >39 [facility] Comment on above: Order Comment: Audreysherrie ordoñez Type: BLOOD SPECIMENOrdering Facility: [facility] Address: [address] [place] [address] Result Comment: 40-5 9 mg/dL, Acceptable >59 mg/dL, High: Negative risk factor for coronary heart disease <40 mg/dL, Low: Positive risk factor for coronary heart disease Performed By: #### 6 30-4 #### [facility] CLIA [id number] [address] [place] [address] STATES OF [facility] Cholesterol in LDL [Mass/Vol] 68 mg/dL Normal <100 [facility] Comment on above: Order Comment: [facility] Type: BLOOD SPECIMENOrdering Facility: [facility] Address: [address] [place] [address] Result Comment: <100 mg/dL, Optimal 100-129 mg/dL, Near optimal/above optimal 130-159 mg/dL, Borderline high 160-189 mg/dL, High >189 mg/dL, Very high Secondary prevention optimal LDL Cholesterol levels are recommended to be < 70 mg/dL Performed By: #### 6 30-4 #### [facility] CLIA [id number] [address] [place] [address] OF [facility] Cholesterol in LDL/Cholesterol in HDL [Mass ratio] 0.89 {ratio} Normal <2.54 [facility] Comment on above: Order Comment: Speci smita Type: BLOOD SPECIMENOrdering Facility: [facility] Address: [address] [place] [address] Result Comment: Radha camejo: 1. National Cholesterol Education Program ATP III Guideline At-A-Glance Quick Desk Reference: National Heart, Lung, and Blood Hamlin. National Institutes of Health. 2001: NIH Publication No. 01-3305. 2. An International Atherosclerosis Society position paper: global recommendations for the management of dyslipidemia: executive summary, Atherosclerosis. 2014: 232(2):410-413. Performed By: #### 6 30-4 #### [facility] CLIA [id number] [address] [place] [address] [place] Cholesterol in VLDL [Mass/Vol] 24 mg/dL Normal <30 [facility] Comment on above: Order Comment: Speci men Type: BLOOD SPECIMENOrdering Facility: [facility] Address: [address] [place] [address] Performed By: #### 6 30-4 #### [facility] CLIA [id number] [address] [place] [address] [place] Cholesterol non HDL [Mass/Vol] 92 mg/dL Normal <130 [facility] Comment on above: Order Comment: Speci men Type: BLOOD SPECIMENOrdering Facility: [facility] Address: [address] [place] [address] Result Comment: <130 mg/dL, Optimal 130-159 mg/dL, Near optimal/above optimal 160-189 mg/dL, Borderline high 190-219 mg/dL, High >219 mg/dL, Very high Secondary prevention optimal non HDL Cholesterol levels are recommended to be <100 mg/dL Performed By: #### 6 30-4 #### [facility] CLIA [id number] [address] [place] [address] [place] Cholesterol.total/Choles terol in HDL [Mass ratio] 2.21 {ratio} Normal <5.10 [facility] Comment on above: Order Comment: Speci men Type: BLOOD SPECIMENOrdering Facility: [facility] Address: [address] [place] [address] Performed By: #### 6 30-4 #### [facility] CLIA [id number] [address] [place] [address] [place] FASTING TIME 12 hrs Normal [facility] Comment on above: Order Comment: Speci men Type: BLOOD SPECIMENOrdering Facility: [facility] Address: [address] [place] [address] Performed By: #### 6 30-4 #### [facility] CLIA [id number] [address] [place] [address] [place] Triglyceride [Mass/Vol] 119 mg/dL Normal <150 [facility] Comment on above: Order Comment: Speci men Type: BLOOD SPECIMENOrdering Facility: [facility] Address: [address] [place] [address] Result Comment: <150 mg/dL, Normal 150-199 mg/dL, Borderline high 200-499 mg/dL, High >499 mg/dL, Very high Performed By: #### 6 30-4 #### [facility] CLIA [id number] [address] [place] [address] [place] Magnesium SerPl-mCncon 07-14 Magnesium [Mass/Vol] 1.9 mg/dL Normal 1.7-2.[address] [facility] Comment on above: Order Comment: Speci men Type: BLOOD SPECIMENOrdering Facility: [facility] Address: [address] [place] [address] Performed By: #### 6 30-4 #### [facility] CLIA [id number] [address] [place] [address] [place] CBC W/Diff, Automatedon 01-0 Absolute Lymph 1.62 X10 3/uL Normal 0.83-4.51 [facility] Comment on above: Performed By: #### L 100.0100, L500.4050 #### [facility] [address] [place], [address] Absolute Neut 5.6 X10 3/uL Normal 2.0-7.7 [facility] Comment on above: Performed By: #### L 100.0100, L500.4050 #### [facility] [address] [place], [address] Basophils/100 WBC (Bld) 0.6 % Normal 0-1 [facility] Comment on above: Performed By: #### L 100.0100, L500.4050 #### [facility] [address] [place], [address] Eosinophils/100 WBC (Bld) 1.5 % Normal 0-5 [facility] Comment on above: Performed By: #### L 100.0100, L500.4050 #### [facility] [address] [place], [address] Erythrocyte distribution width (RBC) [Ratio] 13.2 % Normal 11.6-14.6 [facility] Comment on above: Performed By: #### L 100.0100, L500.4050 #### [facility] [address] [place], [address] Hematocrit (Bld) [Volume fraction] 39.6 % Normal 37-47 [facility] Comment on above: Performed By: #### L 100.0100, L500.4050 #### [facility] [address] [place], [address] Hemoglobin (Bld) [Mass/Vol] 13.1 g/dL Normal 12.0-15.0 [facility] Comment on above: Performed By: #### L 100.0100, L500.4050 #### [facility] [address] [place], [address] IG% 0.500 Normal 0.0-0.9 [facility] Comment on above: Result Comment: IG% - Immature Granulocytes (promyelocytes, myelocytes and metamyelocytes) > 1% indicates that a LEFT SHIFT is Present. Performed By: #### L 100.0100, L500.4050 #### [facility] [address] [place], [address] Lymphocytes/100 WBC (Bld) 20.2 % Normal 19-41 [facility] Comment on above: Performed By: #### L 100.0100, L500.4050 #### [facility] [address] [place], [address] MCH (RBC) [Entitic mass] 29.5 pg Normal 27.0-32.0 [facility] Comment on above: Performed By: #### L 100.0100, L500.4050 #### [facility] [address] [place], [address] MCHC (RBC) [Mass/Vol] 33.1 g/dL Normal 32-36 [facility] Comment on above: Performed By: #### L 100.0100, L500.4050 #### [facility] [address] [place], [address] MCV (RBC) [Entitic vol] 89.2 fL Normal 81-99 [facility] Comment on above: Performed By: #### L 100.0100, L500.4050 #### [facility] [address] [place], [address] Monocytes/100 WBC (Bld) 7.4 % Normal 0-10 [facility] Comment on above: Performed By: #### L 100.0100, L500.4050 #### [facility] [address] [place], [address] Neutrophils/100 WBC (Bld) 69.8 % Normal 47-70 [facility] Comment on above: Performed By: #### L 100.0100, L500.4050 #### [facility] [address] [place], [address] Nucleated RBC (Bld) [#/Vol] 0 10*3/uL Normal 0-5 [facility] Comment on above: Performed By: #### L 100.0100, L500.4050 #### [facility] [address] [place], [address] Platelet mean volume (Bld) [Entitic vol] 9.9 fL Normal 6.2-12.0 [facility] Comment on above: Performed By: #### L 100.0100, L500.4050 #### [facility] [address] [place], [address] Platelets (Bld) [#/Vol] 484 10*3/uL High 150-450 [facility] Comment on above: Performed By: #### L 100.0100, L500.4050 #### [facility] [address] [place], [address] RBC (Bld) [#/Vol] 4.44 10*6/uL Normal 4.2-5.4 [facility] Comment on above: Performed By: #### L 100.0100, L500.4050 #### [facility] [address] [place], [address] RDW SD 43.6 fl Normal 35.1-43.9 [facility] Comment on above: Performed By: #### L 100.0100, L500.4050 #### [facility] [address] [place], [address] WBC (Bld) [#/Vol] 8.0 10*3/uL Normal 4.4-11.0 [facility] Comment on above: Performed By: #### L 100.0100, L500.4050 #### [facility] [address] [place], [address] CNOVon 04-26-2024 CNOV Office Visit (UCWSTR ) RACHEL HOLLOWAY ([id number]) 1955 F Date Time Provider Department 04/26/24 9:30 AM SONNY ADAMS [facility] During your visit today, we recorded the following information about you: Temperature Pulse Respiration Blood pressure 97.1 degrees 80/minute 19/minute 160/80 Weight 82.6 kg Sonny Adams MD 04/26/2024 10:17 AM Signed Patient presents with: Cough: Chest congestion x 2 weeks HPI: Coughing since 04/13/24. Initial URI symptoms are resolved; cough is improved some but lingering. Positive symptoms: Cough, slight Wheezing, improved Rhinorrhea, Resolved: Sore throat, Nasal Congestion, chest soreness Negative symptoms: Shortness of breath, Fever, Vomiting, Diarrhea, OTC: cough and Cold Medicine Negative home COVID test last week. Denies history of asthma, COPD, smoking, or pneumonia. Her brother in [place] yesterday. She is concerned about traveling and being around family with her cough. MEDICATIONS: Current Outpatient Medications Medication Sig insulin glargine-yfgn (SEMGLEE,INSULIN GLARG-YFGN,PEN) 100 unit/mL (3 mL) insulin pen Inject 24 Units subcutaneously daily at bedtime. meclizine (ANTIVERT) 25 mg tab Take 25 mg by mouth four times a day as needed. Azelastine (ASTEPRO ALLERGY) 205.5 mcg (0.15 %) spry Use 1 [place] in each nostril once daily. losartan (COZAAR) 25 mg tablet Take 1 tablet by mouth once daily. metFORMIN ER (GLUCOPHAGE XR) 500 mg 24 hr tablet Take 1 tablet by mouth two times a day. omeprazole (PRILOSEC) 20 mg capsule Take 1 capsule by mouth once daily. pravastatin (PRAVACHOL) 20 mg tablet Take 1 tablet by mouth daily at bedtime. blood sugar diagnostic (BLOOD GLUCOSE TEST) test strip One Touch Verio. Test blood sugar(s) 2 times daily or as instructed. Dx: Type 2 DM - Controlled E11.9 Insulin: Yes. insulin needles, DISPOSABLE, (PEN NEEDLE) 31 gauge x 5/16 Use one needle per dose. 1 per day. Diagnosis: 250.02 glipiZIDE (GLUCOTROL) 10 mg tablet Take 1 tablet (10 mg) by mouth two times a day. atenolol (TENORMIN) 25 mg tablet Take 1 tablet by mouth once daily. Lancets lancets Test blood sugar(s) 2 times daily or as instructed. Dx: Type 2 DM - Controlled E11.9 Insulin: Yes estradiol (ESTRACE) 0.01 % (0.1 mg/gram) vaginal cream use vaginally once or twice weekly as directed Cholecalciferol, Vitamin D3, 25 mcg (1,000 unit) cap Take 1 capsule by mouth once daily. Lancets (ACCU-CHEK SOFTCLIX LANCETS) lancets Use as instructed. Dx: E11.9, Z79.4 . Insulin: Yes. hydroxychloroquine (PLAQUENIL) 200 mg tablet Take 1 tablet by mouth twice daily. (Dr. Albright) aspirin, enteric coated (ASPIRIN, ENTERIC COATED) 81 mg EC tablet Take 81 mg by mouth once daily. MULTIVITAMIN TAB Take by mouth. Ca/D3/mag ox/zinc/newspaper copy editor/shanelle/bor (CALCIUM 600-D3 PLUS ORAL) Take 1 capsule by mouth once daily. (Patient not taking: Reported on 01/19/2024) No current facility-administered medications for this visit. ALLERGIES: ALLERGIES Allergen Reactions Lisinopril Cough VITALS: BP 160/80 Pulse 80 Temp 36.2 ?C (97.1 ?F) Resp 19 Wt 82.6 kg (182 lb 1.6 oz) SpO2 94% BMI 31.26 kg/m? PHYSICAL EXAM: GEN: Pleasant, in no acute distress. HEENT: PERRL, EOMI, conjunctiva clear Ears: canals clear. TMs without erythema, bulge, or effusion Sinuses: non-tender frontal sinus, non-tender maxillary sinuses Throat: moist mucous membranes, no erythema, no exudate Neck: supple, no thyromegaly, no lymphadenopathy HEART: regular rate, regular rhythm, no murmurs LUNGS: clear to auscultation, no wheezes or crackles, no increased WOB; frequent non-productive cough ASSESSMENT/PLAN: 1. Subacute cough - ICD9: 786.2, ICD10: R05.2 - XR CHEST 2V FRONTAL/LAT - negative. - suspect viral URI with bronchitis. Cough from bronchitis may take 5 weeks to resolve. She is beyond the typical contagious time frame. - Discussed supportive care treatment with rest, cold medicine, and analgesia. - BENZONATATE 100 MG CAPSULE Sonny Adams MD Allergies As of Date: 04/26/2024 Noted Allergy Reaction LISINOPRIL 03/09/2011 3 - Cough Date Reviewed: 04/26/2024 Reviewed by: Aarti Stoll MA - Fully Assessed Reason for Visit: Cough [28] Cmt: Chest congestion x 2 weeks Primary Visit Diagnosis:Subacute cough [R05.2] Order(s):XR CHEST 2V FRONTAL/LAT [[id number]] Order #: [id number] FUTURE benzonatate (TESSALON PERLE) 100 mg capsuleTake 1 capsule by mouth every 8 hours as needed for cough for up to 15 days.Disp: 30 capsuleRfl: 0 Prescriptions as of 04/26/2024 - benzonatate (TESSALON PERLE) 100 mg capsule Take 1 capsule by mouth every 8 hours as needed for cough for up to 15 days. - insulin glargine-yfgn (SEMGLEE,INSULIN GLARG-YFGN,PEN) 100 unit/mL (3 mL) insulin pen Inject 24 Units subcutaneously daily at bedtime. - meclizine (ANTIVERT) 25 mg tab Take 25 mg by mouth four (more content not included)... Normal [facility] Metabolic Prof ilon 04-26-2024 Albumin [Mass/Vol] 3.7 g/dL Normal 3.2-5.0 [facility] Comment on above: Performed By: #### L 100.0100, L500.4050 #### [facility] [address] [place], [address] Albumin/Globulin [Mass ratio] 0.9 {ratio} Normal 0.9-2.4 [facility] Comment on above: Performed By: #### L 100.0100, L500.4050 #### [facility] [address] [place], [address] ALK P 105 U/L Normal 45-117 [facility] Comment on above: Performed By: #### L 100.0100, L500.4050 #### [facility] [address] [place], [address] ALT [Catalytic activity/Vol] 27 U/L Normal 13-56 [facility] Comment on above: Performed By: #### L 100.0100, L500.4050 #### [facility] [address] [place], [address] AST [Catalytic activity/Vol] 28 U/L Normal 15-37 [facility] Comment on above: Performed By: #### L 100.0100, L500.4050 #### [facility] [address] [place], [address] Bilirubin [Mass/Vol] 0.30 mg/dL Normal 0.20-1.00 [facility] Comment on above: Result Comment: For patients on eltrombopag therapy, use of Dimension [place] TBIL is not recommended. Performed By: #### L 100.0100, L500.4050 #### [facility] [address] [place], [address] BUN/CRE 9.8 RATIO Low 10-20 [facility] Comment on above: Performed By: #### L 100.0100, L500.4050 #### [facility] [address] [place], [address] CA,Total 9.1 mg/dL Normal 8.5-10.1 [facility] Comment on above: Performed By: #### L 100.0100, L500.4050 #### [facility] [address] [place], [address] Chloride [Moles/Vol] 100 mmol/L Normal 98-107 [facility] Comment on above: Performed By: #### L 100.0100, L500.4050 #### [facility] [address] [place], [address] CO2 [Moles/Vol] 29.0 mmol/L Normal 21.0-32.0 [facility] Comment on above: Performed By: #### L 100.0100, L500.4050 #### [facility] [address] [place], [address] Creatinine [Mass/Vol] 0.81 mg/dL Normal 0.55-1.02 [facility] Comment on above: Result Comment: The validity of the calculated GFR GFRAA in patients over 70 years has not been determined. Clinical correlation is essential. Performed By: #### L 100.0100, L500.4050 #### [facility] [address] [place], [address] EST GFR - AA 90 mL/min Normal >60 [facility] Comment on above: Result Comment: Afri can [place] GFR Calc Performed By: #### L 100.0100, L500.4050 #### [facility] [address] [place], [address] GAP 7 Normal 5-15 [facility] Comment on above: Performed By: #### L 100.0100, L500.4050 #### [facility] [address] [place], [address] GFR/1.73 sq M.predicted among non-blacks MDRD (S/P/Bld) [Vol rate/Area] 74 mL/min/{1.73_m2} Normal >60 [facility] Comment on above: Result Comment: Non- GFR Calc Performed By: #### L 100.0100, L500.4050 #### [facility] [address] [place], [address] Globulin (S) [Mass/Vol] 4.2 g/dL Normal 2.2-4.2 [facility] Comment on above: Performed By: #### L 100.0100, L500.4050 #### [facility] [address] [place], [address] Glucose [Mass/Vol] 229 mg/dL High 74-106 [facility] Comment on above: Result Comment: Gluc ose result greater than or equal to 200 mg/dL suggests DIABETES MELLITUS per A.D.A. criteria. Performed By: #### L 100.0100, L500.4050 #### [facility] [address] [place], [address] Potassium [Moles/Vol] 4.2 mmol/L Normal 3.5-5.1 [facility] Comment on above: Performed By: #### L 100.0100, L500.4050 #### [facility] [address] [place], [address] Sodium [Moles/Vol] 135 mmol/L Low 136-145 [facility] Comment on above: Performed By: #### L 100.0100, L500.4050 #### [facility] [address] [place], [address] T PROT 7.9 g/dL Normal 6.4-8.2 [facility] Comment on above: Performed By: #### L 100.0100, L500.4050 #### [facility] [address] [place], [address] Urea nitrogen [Mass/Vol] 8 mg/dL Normal 7-18 [facility] Comment on above: Performed By: #### L 100.0100, L500.4050 #### [facility] [address] [place], [address] XR CHEST 2V FRONTAL/LATon XR CHEST 2V FRONTAL/LAT * * *Final Repor t* * * DATE OF EXAM: Apr 26 2024 10:05AM WOX [id number] - XR CHEST 2V FRONTAL/LAT / PROCEDURE REASON: Subacute cough * * * * Physician Interpretation * * * * EXAMINATION: CHEST RADIOGRAPH (2 VIEW FRONTAL and LATERAL) CLINICAL HISTORY: Subacute cough MQ: XC2_6 EXAM DATE/TIME: 04/26/2024 10:05 AM COMPARISON: No relevant prior studies available. RESULT: Lines, tubes, and devices: None. Lungs and pleura: No consolidation. No lung mass. No pleural effusion. No pneumothorax. Large pericardial fat pads are visualized. Cardiomediastinal silhouette: The cardiac silhouette is within normal limits. There is a small to medium-sized hiatal hernia. Bones and soft tissues: The spine shows degenerative changes. IMPRESSION: No acute radiographic abnormality. Hiatal hernia. Strength And Conditioning Coach: NEISHA Transcribe Date/Time: Apr 26 2024 10:06A Dictated by : ARPIT LINCOLN MD This examination was interpreted and the report reviewed and electronically signed by: ARPIT LINCOLN MD on Apr 26 2024 10:07AM EST [id number] Normal [facility] XR Chest PA and Lateralon IMPRESSION: No acute radiographic abnormality. Hiatal hernia. Strength And Conditioning Coach: [facility] Transcribe Date/Time: Apr 26 2024 10:06A Dictated by : ARPIT LINCOLN MD This examination was interpreted and the report reviewed and electronically signed by: ARPIT LINCOLN MD on Apr 26 2024 10:07AM EST DIVISION OF RADIOLOGY * * *Final Report* * * DATE OF EXAM: Apr 26 2024 10:05AM WOX [id number] - XR CHEST 2V FRONTAL/LAT / PROCEDURE REASON: Subacute cough * * * * Physician Interpretation * * * * EXAMINATION: CHEST RADIOGRAPH (2 VIEW FRONTAL & LATERAL) CLINICAL HISTORY: Subacute cough MQ: XC2_6 EXAM DATE/TIME: 04/26/2024 10:05 AM COMPARISON: No relevant prior studies available. RESULT: Lines, tubes, and devices: None. Lungs and pleura: No consolidation. No lung mass. No pleural effusion. No pneumothorax. Large pericardial fat pads are visualized. Cardiomediastinal silhouette: The cardiac silhouette is within normal limits. There is a small to medium-sized hiatal hernia. Bones and soft tissues: The spine shows degenerative changes. DIVISION OF RADIOLOGY Provider, Carissa Hernandez - 04/26/2024 * * *Final Report* * * DATE OF EXAM: Apr 26 2024 10:05AM WOX [id number] - XR CHEST 2V FRONTAL/LAT / PROCEDURE REASON: Subacute cough * * * * Physician Interpretation * * * * EXAMINATION: CHEST RADIOGRAPH (2 VIEW FRONTAL & LATERAL) CLINICAL HISTORY: Subacute cough MQ: [id number]_6 EXAM DATE/TIME: 04/26/2024 10:05 AM COMPARISON: No relevant prior studies available. RESULT: Lines, tubes, and devices: None. Lungs and pleura: No consolidation. No lung mass. No pleural effusion. No pneumothorax. Large pericardial fat pads are visualized. Cardiomediastinal silhouette: The cardiac silhouette is within normal limits. There is a small to medium-sized hiatal hernia. Bones and soft tissues: The spine shows degenerative changes. IMPRESSION IMPRESSION: No acute radiographic abnormality. Hiatal hernia. Strength And Conditioning Coach: PSCB Transcribe Date/Time: Apr 26 2024 10:06A Dictated by : ARPIT LINCOLN MD This examination was interpreted and the report reviewed and electronically signed by: ARPIT LINCOLN MD on Apr 26 2024 10:07AM EST [facility] Radiology Study observation (narrative) [facility] XR Chest PA and LateralOrder ed By: Ccf Provider on 04-26-2024 [facility] SCREENINGon 04-03-2024 [facility] SCREENING * * *Final Report* * * DATE OF EXAM: Apr 03 2024 8:23AM [facility] 0581 - [facility] SCREENING / PROCEDURE REASON: Encounter for screening mammogram for breast cancer * * * * Physician Interpretation * * * * RESULT: [place] [address] #[id number] - [facility] SCREENING HISTORY: Patient is 68 years old and is seen for screening and is asymptomatic in both breasts. Patient states no personal history of breast cancer. Patient states no personal history of other cancers. COMPARISON STUDIES: The present examination has been compared to prior imaging studies dated 02/20/2019 (mammogram), 02/23/2020 (mammogram), 03/10/2021 (mammogram), 03/30/2022 (mammogram) and 03/31/2023 (mammogram). MAMMOGRAM TECHNIQUE: The study was acquired using full field digital technology and interpreted from soft copy. Computer-aided detection was utilized by the radiologist in the interpretation of this examination. MAMMOGRAM FINDINGS: There are scattered areas of fibroglandular density. No suspicious masses, calcifications or other abnormalities are seen in either breast. There are no significant interval changes. IMPRESSION: There is no mammographic evidence of malignancy in either breast. Routine screening mammogram is recommended. Annual mammogram will be due in 1 year. BI-RADS Category 1: Negative RISK: Based on the Tyrer-Cuzick (TC) risk assessment model, this patient has a 2.3% lifetime risk of developing breast cancer, meaning they are at average risk for developing breast cancer. However, this is only an estimate based on available history provided on the patient's questionnaire. We encourage all patients to talk with their providers about these results, further recommendations for managing breast health, and appropriate supplemental screening options if the patient has dense breast tissue. Interpreting Radiologist: Alecia Alvarado M.D. Electronically signed on: 04/04/2024 Strength And Conditioning Coach: SHAHEED Transcribe Date/Time: Apr 03 2024 7:43A Dictated by: ALECIA ALVARADO MD This examination was interpreted and the report reviewed and electronically signed by: ALECIA ALVARADO MD on Apr 04 2024 7:02AM EST [id number] Normal [facility] CNTHERAPYon 02-22-2024 CNTHERAPY OT/PT/Speech Visit (PTWS) RACHEL HOLLOWAY ([id number]) 1955 F Date Time Provider Department 02/22/24 11:30 AM EFREN MACIAS PTLURDES Date Time Provider Department Center 02/22/2024 11:30 AM [id number] MACIAS Reason for Visit: Physical Therapy [503] Primary Visit Diagnosis:Benign paroxysmal positional vertigo of right ear [H81.11] Allergies As of Date: 02/22/2024 Noted Allergy Reaction LISINOPRIL 03/09/2011 3 - Cough Date Reviewed: 01/19/2024 Reviewed by: Noe, Bibiana E, MILLINERY WORKER - Fully Assessed Prescriptions as of 02/22/2024 - insulin glargine-yfgn (SEMGLEE,INSULIN GLARG-YFGN,PEN) 100 unit/mL (3 mL) insulin pen Inject 24 Units subcutaneously daily at bedtime. - meclizine (ANTIVERT) 25 mg tab Take 25 mg by mouth four times a day as needed. - Azelastine (ASTEPRO ALLERGY) 205.5 mcg (0.15 %) spry Use 1 Monett in each nostril once daily. - losartan (COZAAR) 25 mg tablet Take 1 tablet by mouth once daily. - metFORMIN ER (GLUCOPHAGE XR) 500 mg 24 hr tablet Take 1 tablet by mouth two times a day. - omeprazole (PRILOSEC) 20 mg capsule Take 1 capsule by mouth once daily. - pravastatin (PRAVACHOL) 20 mg tablet Take 1 tablet by mouth daily at bedtime. - blood sugar diagnostic (BLOOD GLUCOSE TEST) test strip One Touch Verio. Test blood sugar(s) 2 times daily or as instructed. Dx: Type 2 DM - Controlled E11.9 Insulin: Yes. - insulin needles, DISPOSABLE, (PEN NEEDLE) 31 gauge x 5/16 Use one needle per dose. 1 per day. Diagnosis: 250.02 - glipiZIDE (GLUCOTROL) 10 mg tablet Take 1 tablet (10 mg) by mouth two times a day. - atenolol (TENORMIN) 25 mg tablet Take 1 tablet by mouth once daily. - Lancets lancets Test blood sugar(s) 2 times daily or as instructed. Dx: Type 2 DM - Controlled E11.9 Insulin: Yes - estradiol (ESTRACE) 0.01 % (0.1 mg/gram) vaginal cream use vaginally once or twice weekly as directed - Cholecalciferol, Vitamin D3, 25 mcg (1,000 unit) cap Take 1 capsule by mouth once daily. - Ca/D3/mag ox/zinc/newspaper copy editor/shanelle/bor (CALCIUM 600-D3 PLUS ORAL) Take 1 capsule by mouth once daily. - Lancets (ACCU-CHEK SOFTCLIX LANCETS) lancets Use as instructed. Dx: E11.9, Z79.4 . Insulin: Yes. - hydroxychloroquine (PLAQUENIL) 200 mg tablet Take 1 tablet by mouth twice daily. (Dr. Vellanki) - aspirin, enteric coated (ASPIRIN, ENTERIC COATED) 81 mg EC tablet Take 81 mg by mouth once daily. - MULTIVITAMIN TAB Take by mouth. Normal [facility] [id number] 02-15-2024 [id number] HNO ID: [id number] Author: EFREN MACIAS PT Service: ? Author Type: Physical Therapist Type: [id number] Filed: 02/15/2024 15:34 Note Text: [facility] Rehabilitation and Sports Therapy Physical Therapy Plan of Care Certification Patient Name: Rachel Holloway : 1955 [facility] #: [id number] Date: 02/15/2024 To: Iglesia Messina MD From Therapist: Efren Macias PT RE: Patient Certification/ Recertification Your review, approval and electronic signature are required in order to comply with Payor: [facility] MEDICARE ADVANTAGE / Plan: [place] MED[place]ARE / Product Type: HMO / regulations. The identified Physical Therapy PLAN OF CARE for the patient is as follows: H81.10 Benign paroxysmal positional vertigo, unspecified laterality PLAN OF CARE: Assessment: Rachel Holloway presents with diagnosis of vertigo/BPPV that interferes with bending, bed mobility (moshgiach) . The patient presents with impairments in ADL's, independence in exercise, overall function, posture, range of motion, and symptom management. PROMIS? (Patient-Reported Outcomes Measurement Information System) scores were reviewed and identified as a rehabilitation concern. Prognosis for therapy is Good due to: current objective clinical presentation, good overall health status, acuteness of condition, good support system/ coping skills. The patient will benefit from skilled therapy services to meet the goals established for this plan of care as noted below. Goals for Episode of Care: established 02/15/24 Patient will have negative positional testing for BPPV. Patient/family member will be independent in performing self PRT. Patient will verbalize the understanding of the diagnosis BPPV, how to recognize symptoms and what to do if they return. Patient will return to prior level of function with all activities of daily living with trace reports of dizziness. Patient will deny dizziness with rolling right, looking up, and bending. Patient Goals: eliminate symptoms Time Frame for Goals and Treatment : 03/14/24 Planned Interventions, Frequency, and Duration: Current Frequency: 1x/week Duration: 4 weeks Total Number of Visits Planned: 4 Planned Treatment Interventions: Canalith Repositioning Maneuvers (35480), Self-intermediate management (97480), Patient/Family/Caregiv er Education, Body Mechanics Training, Therapeutic exercise (38504), Neuromuscular re-education (55877), Manual therapy (85009), Therapeutic activities (06964) PLAN FOR NEXT VISIT: Assess pt symptoms since evaluation, repeat positional testing and treat with CRM prn. HEP prn. Patient demonstrates good understanding of plan of care and treatment. The above goals and plan of care were discussed and agreed upon by patient/family. For further details regarding this patient refer to the Physical Therapy electronically documented visit dated 02/15/2024. Provider Attestation I have reviewed the treatment plan for Rachel Holloway, [facility]# [id number] for the period of 02/15/24 -- 03/14/24, established on 02/15/2024. Signature certifies the need for therapy services. Normal [facility] CNTHERAPYon 02-15-2024 CNTHERAPY OT/PT/Speech Visit (PTWS) RACHEL HOLLOWAY ([id number]) 1955 F Date Time Provider Department 02/15/24 1:15 PM EFREN MACIAS PTLURDES Date Time Provider Department Center 02/15/2024 1:15 PM [id number], BRENT PTLURDES [place] Reason for Visit: PT Eval [747] Physical Therapy [503] Visit Diagnosis:Benign paroxysmal positional vertigo, unspecified laterality [H81.10] Allergies As of Date: 02/15/2024 Noted Allergy Reaction LISINOPRIL 03/09/2011 3 - Cough Date Reviewed: 01/19/2024 Reviewed by: Bibiana Liu LPN - Fully Assessed Prescriptions as of 02/15/2024 - insulin glargine-yfgn (SEMGLEE,INSULIN GLARG-YFGN,PEN) 100 unit/mL (3 mL) insulin pen Inject 24 Units subcutaneously daily at bedtime. - meclizine (ANTIVERT) 25 mg tab Take 25 mg by mouth four times a day as needed. - Azelastine (ASTEPRO ALLERGY) 205.5 mcg (0.15 %) spry Use 1 Monett in each nostril once daily. - losartan (COZAAR) 25 mg tablet Take 1 tablet by mouth once daily. - metFORMIN ER (GLUCOPHAGE XR) 500 mg 24 hr tablet Take 1 tablet by mouth two times a day. - omeprazole (PRILOSEC) 20 mg capsule Take 1 capsule by mouth once daily. - pravastatin (PRAVACHOL) 20 mg tablet Take 1 tablet by mouth daily at bedtime. - blood sugar diagnostic (BLOOD GLUCOSE TEST) test strip One Touch Verio. Test blood sugar(s) 2 times daily or as instructed. Dx: Type 2 DM - Controlled E11.9 Insulin: Yes. - insulin needles, DISPOSABLE, (PEN NEEDLE) 31 gauge x 5/16 Use one needle per dose. 1 per day. Diagnosis: 250.02 - glipiZIDE (GLUCOTROL) 10 mg tablet Take 1 tablet (10 mg) by mouth two times a day. - atenolol (TENORMIN) 25 mg tablet Take 1 tablet by mouth once daily. - Lancets lancets Test blood sugar(s) 2 times daily or as instructed. Dx: Type 2 DM - Controlled E11.9 Insulin: Yes - estradiol (ESTRACE) 0.01 % (0.1 mg/gram) vaginal cream use vaginally once or twice weekly as directed - Cholecalciferol, Vitamin D3, 25 mcg (1,000 unit) cap Take 1 capsule by mouth once daily. - Ca/D3/mag ox/zinc/newspaper copy editor/shanelle/bor (CALCIUM 600-D3 PLUS ORAL) Take 1 capsule by mouth once daily. - Lancets (ACCU-CHEK SOFTCLIX LANCETS) lancets Use as instructed. Dx: E11.9, Z79.4 . Insulin: Yes. - hydroxychloroquine (PLAQUENIL) 200 mg tablet Take 1 tablet by mouth twice daily. (Dr. Albright) - aspirin, enteric coated (ASPIRIN, ENTERIC COATED) 81 mg EC tablet Take 81 mg by mouth once daily. - MULTIVITAMIN TAB Take by mouth. Normal [facility] ALBUMIN/CREATININE RATIO, UR INEon 01-19-2024 Albumin DL <= 20 mg/L (U) [Mass/Vol] 14.7 mg/L [facility] Albumin/Creatinine (U) [Mass ratio] 16 mg/g NINF - 30 mg/g [facility] Comment on above: Adult Male and Femal e Nephrotic Criteria: <30 mg/g is considered normal to mildly increased 30-300 mg/g is considered moderately increased >300 mg/g is considered severely increased KDIGO. (2013). KDIGO 2012 Clinical Practice Guideline for the Evaluation and Management of Chronic Kidney Disease. Official Journal of the International Society of Nephrology, 3(1), 1-150. Creatinine (U) [Mass/Vol] 92.4 mg/dL 20.0 - 300.0 mg/dL [facility] Albumin DL <= 20 mg/L (U) [Mass/Vol] 14.7 mg/L [facility] Comment on above: Order Comment: Speci men Type: URINE SPECIMENOrdering Facility: [facility] Address: [address] [place] [address] Performed By: #### U ACR ####[facility] LABCLIA [id number] [address] STATES OF [facility] Albumin/Creatinine (U) [Mass ratio] 16 mg/g Normal <30 [facility] Comment on above: Order Comment: Speci men Type: URINE SPECIMENOrdering Facility: [facility] Address: [address] [place] [address] Result Comment: Adul t Male and Female Nephrotic Criteria: <30 mg/g is considered normal to mildly increased 30-300 mg/g is considered moderately increased >300 mg/g is considered severely increased KDIGO. (2013). KDIGO 2012 Clinical Practice Guideline for the Evaluation and Management of Chronic Kidney Disease. Official Journal of the International Society of Nephrology, 3(1), 1-150. Performed By: #### U ACR ####[facility] LABCLIA [id number] [place] [address] [place] Creatinine (U) [Mass/Vol] 92.4 mg/dL Normal 20.0-300.0 [facility] Comment on above: Order Comment: Speci men Type: URINE SPECIMENOrdering Facility: [facility] Address: [address] [place] [address] Performed By: #### U ACR ####[facility] LABCLIA [id number] [place] [id number] OF [facility] CNOVon 01-19-2024 CNOV Office Visit (INTMWS ) RACHEL HOLLOWAY ([id number]) 1955 F Date Time Provider Department 01/19/24 8:40 AM IGLESIA MESSINA INTMWS During your visit today, we recorded the following information about you: Temperature Pulse Respiration Blood pressure 97.1 degrees 68/minute 18/minute 122/66 Weight 81.2 kg Iglesia Messina MD 02/28/2024 11:13 PM Signed This note was created using [employer].. Subjective Rachel Holloway is a 68 year old female. Patient presents with: F/U 6 months: Labs prior SUBJECTIVE: Rachel Holloway is a 68 year old year old lady here today for 6 month follow up appointment for review of medical conditions. The patient is a 68-year-old female with a history of DM, HTN, and HLD, presenting for a regular 6-month checkup. She also reports a recent episode of vertigo. The patient was seen in the ER on the for vertigo. She describes the vertigo as a spinning sensation that occurs when she bends over or moves her head too quickly. This was her first experience with vertigo of this severity, stating, I've never had that like that. The episode was so intense that she had to close her eyes, could not move her head, and could barely walk. The vertigo began suddenly when she turned to get out of the car after attending a fair. By the time she was in the house, she reports she couldn't function. She has a history of feeling like her ear is plugged, more so on one side than the other, but denies any ear infections. She has tried nasal spray and sinus medication without relief. She was prescribed meclizine in the ER, but has only taken it once, stating that the vertigo usually passes quickly. She manages the vertigo by moving slowly to avoid triggering it. She denies any vision issues or nystagmus. She also reports a history of allergies, which have been particularly bad this year. She notes that her daughter and have also been affected, and she attributes this to the high pollen count. She is currently taking several medications, including vitamin D 1000 units daily, atenolol, glipizide, glargine, metformin, omeprazole, and pravastatin. She requests a refill for her nasal spray. She denies any issues with her current medications. She has made dietary changes to manage her DM, noting that she has reduced her intake of noodles, potatoes, and corn. She reports that these changes have helped her lose weight. She has not been able to exercise outside due to the heat and her allergies, but she has a treadmill at home. She denies any swelling in her feet and reports that she does not go barefoot as much as she used to. PAST MEDICAL HISTORY Diagnosis Date Arthritis Cough Esophageal reflux Neurogenic bladder 05/2018 Had urodynamics and cystoscopy by Dr. Cortez, she recommends interstim Other and unspecified hyperlipidemia Recurrent UTI Type II or unspecified type diabetes mellitus without mention of complication, not stated as uncontrolled Unspecified essential hypertension mild Current Outpatient Medications Medication Sig meclizine (ANTIVERT) 25 mg tab Take 25 mg by mouth four times a day as needed. losartan (COZAAR) 25 mg tablet Take 1 tablet by mouth once daily. metFORMIN ER (GLUCOPHAGE XR) 500 mg 24 hr tablet Take 1 tablet by mouth two times a day. omeprazole (PRILOSEC) 20 mg capsule Take 1 capsule by mouth once daily. pravastatin (PRAVACHOL) 20 mg tablet Take 1 tablet by mouth daily at bedtime. blood sugar diagnostic (BLOOD GLUCOSE TEST) test strip One Touch Verio. Test blood sugar(s) 2 times daily or as instructed. Dx: Type 2 DM - Controlled E11.9 Insulin: Yes. insulin needles, DISPOSABLE, (PEN NEEDLE) 31 gauge x 5/16 Use one needle per dose. 1 per day. Diagnosis: 250.02 glipiZIDE (GLUCOTROL) 10 mg tablet Take 1 tablet (10 mg) by mouth two times a day. insulin glargine-yfgn (SEMGLEE,INSULIN GLARG-YFGN,PEN) 100 unit/mL (3 mL) insulin pen Inject 24 Units subcutaneously daily at bedtime. atenolol (TENORMIN) 25 mg tablet Take 1 tablet by mouth once daily. Azelastine (ASTEPRO ALLERGY) 205.5 mcg (0.15 %) spry Use 1 Monett in each nostril once daily. Lancets lancets Test blood sugar(s) 2 times daily or as instructed. Dx: Type 2 DM - Controlled E11.9 Insulin: Yes estradiol (ESTRACE) 0.01 % (0.1 mg/gram) vaginal cream use vaginally once or twice weekly as directed Cholecalciferol, Vitamin D3, 25 mcg (1,000 unit) cap Take 1 capsule by mouth once daily. Lancets (ACCU-CHEK SOFTCLIX LANCETS) lancets Use as instructed. Dx: E11.9, Z79.4 . Insulin: Yes. hydroxychloroquine (PLAQUENIL) 200 mg tablet Take 1 tablet by mouth twice daily. (Dr. Albright) aspirin, enteric coated (ASPIRIN, ENTERIC COATED) 81 mg EC tablet Take 81 mg by mouth once daily. MULTIVITAMIN TAB Take by mouth. Ca/D3/mag ox/zinc/newspaper copy editor/shanelle/bor (CALCIUM 600-D3 PLUS ORAL) Take 1 (more content not included)... Normal [facility] 25(OH)D3 [facility] 2023 25-hydroxyvitamin D3 [Mass/Vol] 32.8 ng/mL Normal 31.0-80.0 [facility] Comment on above: Order Comment: Speci men Type: BLOOD SPECIMENOrdering Facility: [facility] Address: [address] [place] [address] Result Comment: Clas sification of 25 [place] Vitamin D status: Deficiency/Insufficiency: < or = 30 ng/ml. Sufficiency/Optimal Levels: 31-80 ng/mL Toxicity: > 100 ng/mL. Test performed by chemiluminescent immunoassay. Performed By: #### 1 989-3 ####[facility] LABCLIA [id number] [facility] [id number] [place] [id number] [place] CBC panel Auto (Bld)on 01-13 Erythrocyte distribution width (RBC) [Ratio] 13.1 % Normal 11.5-15.0 [facility] Comment on above: Order Comment: Speci men Type: BLOOD SPECIMENOrdering Facility: [facility] Address: [address] [place] [address] Performed By: #### 5 8410-2 ####[facility] [id number] [address] [place] Hematocrit (Bld) [Volume fraction] 39.8 % Normal 36.0-46.0 [facility] Comment on above: Order Comment: Speci men Type: BLOOD SPECIMENOrdering Facility: [facility] Address: [address] [place] [address] Performed By: #### 5 8410-2 ####[facility] [id number] [address] [place] Hemoglobin (Bld) [Mass/Vol] 13.4 g/dL Normal 11.5-15.5 [facility] Comment on above: Order Comment: Speci men Type: BLOOD SPECIMENOrdering Facility: [facility] Address: [address] [place] [address] Performed By: #### 5 8410-2 ####[facility] [id number] [place] [address] [place] MCH (RBC) [Entitic mass] 30.1 pg Normal 26.0-34.0 [facility] Comment on above: Order Comment: Speci men Type: BLOOD SPECIMENOrdering Facility: [facility] Address: [address] [place] [address] Performed By: #### 5 8410-2 ####[facility] MARIA ELENAWCHIARALIA [id number] [place] [address] [place] MCHC (RBC) [Mass/Vol] 33.7 g/dL Normal 30.5-36.0 [facility] Comment on above: Order Comment: Speci men Type: BLOOD SPECIMENOrdering Facility: [facility] Address: [address] [place] [address] Performed By: #### 5 8410-2 ####[facility]ALTHCHIARALIA [id number] [place] [address] [place] MCV (RBC) [Entitic vol] 89.4 fL Normal 80.0-100.0 [facility] Comment on above: Order Comment: Speci men Type: BLOOD SPECIMENOrdering Facility: [facility] Address: [address] [place] [address] Performed By: #### 5 8410-2 ####[facility] [id number] [place] [address] [place] Nucleated RBC (Bld) [#/Vol] 10*3/uL Normal <0.01 [facility] Comment on above: Order Comment: Speci men Type: BLOOD SPECIMENOrdering Facility: [facility] Address: [address] [place] [address] Performed By: #### 5 8410-2 ####[facility] HOSPITALAdryan [id number] [place] [address] [place] Platelet mean volume (Bld) [Entitic vol] 9.7 fL Normal 9.0-12.7 [facility] Comment on above: Order Comment: Speci men Type: BLOOD SPECIMENOrdering Facility: [facility] Address: [address] [place] [address] Performed By: #### 5 8410-2 ####[facility] [id number] [place] [address] [place] Platelets (Bld) [#/Vol] 288 10*3/uL Normal 150-400 [facility] Comment on above: Order Comment: Speci men Type: BLOOD SPECIMENOrdering Facility: [facility] Address: [address] [place] [address] Performed By: #### 5 8410-2 ####[facility] [id number] [place] [address] [place] RBC (Bld) [#/Vol] 4.45 10*6/uL Normal 3.90-5.20 [facility] Comment on above: Order Comment: Speci men Type: BLOOD SPECIMENOrdering Facility: [facility] Address: [address] [place] [address] Performed By: #### 5 8410-2 ####[facility]ITAL[facility] [id number] [place] [address] [place] WBC (Bld) [#/Vol] 7.35 10*3/uL Normal 3.70-11.00 [facility] Comment on above: Order Comment: Speci men Type: BLOOD SPECIMENOrdering Facility: [facility] Address: [address] [place] [address] Performed By: #### 5 8410-2 ####[facility] [id number] [place] [address] [place] Comprehensive metabolic 2000 panelon 01-14-2024 Albumin [Mass/Vol] 4.3 g/dL Normal 3.9-4.9 [facility] Comment on above: Order Comment: Speci men Type: BLOOD SPECIMENOrdering Facility: [facility] Address: [address] [place] [address] Performed By: #### 6 30-4 #### [facility] CLIA [id number] [address] [place] [address] [place] ALP [Catalytic activity/Vol] 94 U/L Normal 34-123 [facility] Comment on above: Order Comment: Speci men Type: BLOOD SPECIMENOrdering Facility: [facility] Address: [address] [place] [address] Performed By: #### 6 30-4 #### [facility] CLIA [id number] [address] [place] [address] [place] ALT [Catalytic activity/Vol] 23 U/L Normal 7-38 [facility] Comment on above: Order Comment: Speci men Type: BLOOD SPECIMENOrdering Facility: [facility] Address: [address] [place] [address] Performed By: #### 6 30-4 #### [facility] CLIA [id number] [address] [place] [address] [place] Anion gap [Moles/Vol] 10 mmol/L Normal 8-15 [facility] Comment on above: Order Comment: Speci men Type: BLOOD SPECIMENOrdering Facility: [facility] Address: [address] [place] [address] Performed By: #### 6 30-4 #### [facility] CLIA [id number] [address] [place] [address] [place] AST [Catalytic activity/Vol] 23 U/L Normal 13-35 [facility] Comment on above: Order Comment: Speci men Type: BLOOD SPECIMENOrdering Facility: [facility] Address: [address] [place] [address] Performed By: #### 6 30-4 #### [facility] CLIA [id number] [address] [place] [address] [place] Bilirubin [Mass/Vol] 0.3 mg/dL Normal 0.2-1.[address] [facility] Comment on above: Order Comment: Speci men Type: BLOOD SPECIMENOrdering Facility: [facility] Address: [address] [place] [address] Performed By: #### 6 30-4 #### [facility] CLIA [id number] [address] [place], [place] [id number] [place] Calcium [Mass/Vol] 9.5 mg/dL Normal 8.5-10.2 [facility] Comment on above: Order Comment: Speci men Type: BLOOD SPECIMENOrdering Facility: [facility] Address: [address] [place] [address] Performed By: #### 6 30-4 #### [facility] CLIA [id number] [address] [place] [address] [place] Chloride [Moles/Vol] 101 mmol/L Normal 98-[address] [facility] Comment on above: Order Comment: Speci men Type: BLOOD SPECIMENOrdering Facility: [facility] Address: [address] [place] [address] Performed By: #### 6 30-4 #### [facility] CLIA [id number] [address] [place] [address] [place] CO2 [Moles/Vol] 28 mmol/L Normal 22-30 [facility] Comment on above: Order Comment: Speci men Type: BLOOD SPECIMENOrdering Facility: [facility] Address: [address] [place] [address] Performed By: #### 6 30-4 #### [facility] CLIA [id number] [address] [place] [address] [place] Creatinine [Mass/Vol] 0.72 mg/dL Normal 0.58-0.96 [facility] Comment on above: Order Comment: Speci men Type: BLOOD SPECIMENOrdering Facility: [facility] Address: [address] [place] [address] Performed By: #### 6 30-4 #### [facility] CLIA [id number] [address] [place] [address] [place] Creatinine and Glomerular filtration rate.predicted panel (S/P/Bld) 91 mL/min/1.73m??? Normal >=60 [facility] Comment on above: Order Comment: Juan ordoñez Type: BLOOD SPECIMENOrdering Facility: [facility] Address: [address] [place] [address] Result Comment: Pam mated Glomerular Filtration Rate (eGFR) is calculated using the 2020 CKD-EPI creatinine equation. This equation utilizes serum creatinine, sex, and age as parameters. The creatinine assay has traceable calibration to isotope dilution-mass spectrometry. Refer to KDIGO guidelines for clinical interpretation. In patients with unstable renal function, e.g. those with acute kidney injury, the eGFR may not accurately reflect actual GFR. Performed By: #### 6 30-4 #### [facility] CLIA [id number] [address] [place] [address] [place] Glucose [Mass/Vol] 104 mg/dL High 74-99 [facility] Comment on above: Order Comment: Juan ordoñez Type: BLOOD SPECIMENOrdering Facility: [facility] Address: [address] [place] [address] Result Comment: The [place] Diabetes Association (ADA) provides guidance for cutoff values for fasting glucose and random glucose. The ADA defines fasting as no caloric intake for at least 8 hours. Fasting plasma glucose results between 100 to 125 mg/dL indicate increased risk for diabetes (prediabetes). Fasting plasma glucose results greater than or equal to 126 mg/dL meet the criteria for diagnosis of diabetes. In the absence of unequivocal hyperglycemia, results should be confirmed by repeat testing. In a patient with classic symptoms of hyperglycemia or hyperglycemic crisis, random plasma glucose results greater than or equal to 200 mg/dL meet the criteria for diagnosis of diabetes. Reference: Standards of Medical Care in Diabetes 2016, [place] Diabetes Association. Diabetes Care. 2016.39(Suppl 1). Performed By: #### 6 30-4 #### [facility] CLIA [id number] [address] [place] [address] [place] Potassium [Moles/Vol] 4.1 mmol/L Normal 3.7-5.1 [facility] Comment on above: Order Comment: Juan ordoñez Type: BLOOD SPECIMENOrdering Facility: [facility] Address: [address] [place] [address] Performed By: #### 6 30-4 #### [facility] CLIA [id number] [address] [place] [address] [place] Protein [Mass/Vol] 7.3 g/dL Normal 6.3-8.0 [facility] Comment on above: Order Comment: Speci men Type: BLOOD SPECIMENOrdering Facility: [facility] Address: [address] [place] [address] Performed By: #### 6 30-4 #### [facility] CLIA [id number] [address] [place] [address] [place] Sodium [Moles/Vol] 139 mmol/L Normal 136-144 [facility] Comment on above: Order Comment: Speci men Type: BLOOD SPECIMENOrdering Facility: [facility] Address: [address] [place] [address] Performed By: #### 6 30-4 #### [facility] CLIA [id number] [address] [place] [address] [place] Urea nitrogen [Mass/Vol] 11 mg/dL Normal 7-21 [facility] Comment on above: Order Comment: Speci men Type: BLOOD SPECIMENOrdering Facility: [facility] Address: [address] [place] [address] Performed By: #### 6 30-4 #### [facility] CLIA [id number] [address] [place] [address] [place] HbA1c (Bld)on 01-14-2024 Average glucose Estimated from glycated hemoglobin (Bld) [Mass/Vol] 166 mg/dL Normal [facility] Comment on above: Order Comment: Speci men Type: BLOOD SPECIMENOrdering Facility: [facility] Address: [address] [place] [address] Result Comment: eAG: (Estimated average glucose) is a calculated value from HgbA1c and is computer help desk representative of the average blood glucose level in the last 2-3 month period. Performed By: #### 5 5454-3 ####[facility] [id number] [place] [address] [place] HbA1c (Bld) [Mass fraction] 7.4 % High 4.3-5.6 [facility] Comment on above: Order Comment: Speci men Type: BLOOD SPECIMENOrdering Facility: [facility] Address: [address] [place] [address] Result Comment: [place] Diabetes Association guidelines indicate that patients with HgbA1c in the range 5.7-6.4% are at increased risk for development of diabetes, and intervention by lifestyle modification may be beneficial. HgbA1c greater or equal to 6.5% is considered diagnostic of diabetes. Performed By: #### 5 5454-3 ####[facility] [id number] [place] [address] [place] Lipid 1996 panelon 4 Cholesterol [Mass/Vol] 180 mg/dL Normal <200 [facility] Comment on above: Order Comment: Speci men Type: BLOOD SPECIMENOrdering Facility: [facility] Address: [address] [place] [address] Result Comment: <200 mg/dL, Desirable 200-239 mg/dL, Borderline high >239 mg/dL, High Performed By: #### 6 30-4 #### [facility] CLIA [id number] [address] [place] [address] [place] Cholesterol in HDL [Mass/Vol] 75 mg/dL Normal >39 [facility] Comment on above: Order Comment: Speci men Type: BLOOD SPECIMENOrdering Facility: [facility] Address: [address] [place] [address] Result Comment: 40-5 9 mg/dL, Acceptable >59 mg/dL, High: Negative risk factor for coronary heart disease <40 mg/dL, Low: Positive risk factor for coronary heart disease Performed By: #### 6 30-4 #### [facility] CLIA [id number] [address] [place] [address] [place] Cholesterol in LDL [Mass/Vol] 79 mg/dL Normal <100 [facility] Comment on above: Order Comment: Speci men Type: BLOOD SPECIMENOrdering Facility: [facility] Address: [address] [place] [address] Result Comment: <100 mg/dL, Optimal 100-129 mg/dL, Near optimal/above optimal 130-159 mg/dL, Borderline high 160-189 mg/dL, High >189 mg/dL, Very high Secondary prevention optimal LDL Cholesterol levels are recommended to be < 70 mg/dL Performed By: #### 6 30-4 #### [facility] CLIA [id number] [address] [place] [address] [place] Cholesterol in LDL/Cholesterol in HDL [Mass ratio] 1.05 {ratio} Normal <2.54 [facility] Comment on above: Order Comment: Speci men Type: BLOOD SPECIMENOrdering Facility: [facility] Address: [address] [place] [address] Result Comment: Refe joyace: 1. National Cholesterol Education Program ATP III Guideline At-A-Glance Quick Desk Reference: National Heart, Lung, and Blood [place]. National Institutes of Health. 2001: NIH Publication No. 01-3305. 2. An International Atherosclerosis Society position paper: global recommendations for the management of dyslipidemia: executive summary, Atherosclerosis. 2014: 232(2):410-413. Performed By: #### 6 30-4 #### [facility] CLIA [id number] [address] [place] [address] [place] Cholesterol in VLDL [Mass/Vol] 26 mg/dL Normal <30 [facility] Comment on above: Order Comment: Speci men Type: BLOOD SPECIMENOrdering Facility: [facility] Address: [address] [place] [address] Performed By: #### 6 30-4 #### [facility] CLIA [id number] [address] [place] [address] [place] Cholesterol non HDL [Mass/Vol] 105 mg/dL Normal <130 [facility] Comment on above: Order Comment: Speci men Type: BLOOD SPECIMENOrdering Facility: [facility] Address: [address] [place] [address] Result Comment: <130 mg/dL, Optimal 130-159 mg/dL, Near optimal/above optimal 160-189 mg/dL, Borderline high 190-219 mg/dL, High >219 mg/dL, Very high Secondary prevention optimal non HDL Cholesterol levels are recommended to be <100 mg/dL Performed By: #### 6 30-4 #### [facility] CLIA [id number] [address] [place] [address] [place] Cholesterol.total/Choles terol in HDL [Mass ratio] 2.40 {ratio} Normal <5.10 [facility] Comment on above: Order Comment: Speci men Type: BLOOD SPECIMENOrdering Facility: [facility] Address: [address] [place] [address] Performed By: #### 6 30-4 #### [facility] CLIA [id number] [address] [place] [address] [place] FASTING TIME 13 hrs Normal [facility] Comment on above: Order Comment: Speci men Type: BLOOD SPECIMENOrdering Facility: [facility] Address: [address] [place] [address] Performed By: #### 6 30-4 #### [facility] CLIA [id number] [address] [place] [address] [place] Triglyceride [Mass/Vol] 129 mg/dL Normal <150 [facility] Comment on above: Order Comment: Speci men Type: BLOOD SPECIMENOrdering Facility: [facility] Address: [address] [place] [address] Result Comment: <150 mg/dL, Normal 150-199 mg/dL, Borderline high 200-499 mg/dL, High >499 mg/dL, Very high Performed By: #### 6 30-4 #### [facility] CLIA [id number] [address] [place], [place] [address] [id number] [place], [place] [id number] [place] Magnesium SerPl-mCncon 01-13 Magnesium [Mass/Vol] 1.9 mg/dL Normal 1.7-2.[address] [facility] Comment on above: Order Comment: Speci men Type: BLOOD SPECIMENOrdering Facility: [facility] Address: [address] [place] [address] Performed By: #### 2 4323-8, 12995-4 ####[facility] [id number] [place] [address] [place] Bedside Glucoseon 12-31-2023 FINGERSTICK GLU 183 mg/dL High 74-106 [facility] Comment on above: Result Comment: AUGUST CHRISTINE OF PATIENT CARE PER NURSING PROTOCOL Performed By: #### L 501.080 #### [facility] [address] [place], [address] Emergency Department Summary on 12-31-2023 Emergency Department Summary [facility] Medical Records Department [address] [place] [address] Emergency Department Summary 12/31/23 MR#: [id number] Acct: [id number] Name: RACHEL HOLLOWAY Rep #: [id number] : 1955 68 From: Jackie Pereira DO PCP: Dr. Iglesia Messina MD Status:DEP ER Location: ED HPI History of Present Illness Chief Complaint: Dizziness Informant: patient and spouse/S.O. Narrative Narrative: Patient is a 68-year-old female with history of diabetes mellitus, arthritis, hypertension and reflux presenting with dizziness and nausea. Patient states [place] When she turned to get out of the car once they arrived home she suddenly felt dizzy. She felt associated nauseous. She states she feels a little off balance. She denies any associated numbness, vision changes or weakness. No speech changes reported. She waited about an hour until she told her about this. He checked her blood pressure and it was elevated (around 160 systolic) so they came to the ER for further evaluation. She states her symptoms are worse when she moves. She denies a sensation of feeling like she is going to pass out. She denies any history of this before. Denies any recent URI symptoms. Denies associated chest pain, shortness of breath, abdominal pain or change in her bowel habits. No fever or chills reported. No other complaints or concerns at this time. Denies any recent medication changes. PFSH PFSH Medical History Hypertension Post-menopausal Insulin dependent diabetes mellitus Diabetes Arthritis Bladder disease Gastric reflux Non-smoker Home Medications ???Medication ???Instructions ???Recorded ???Last Taken ???Type atenolol 25 mg tablet 25 mg PO DAILY 07/20/18 12/06/20 History hydroxychloroquine 200 mg tablet 200 mg PO BIDCM 07/20/18 Unknown History insulin glargine 100 unit/mL (3 24 unit SQ QHS PRN PRN 07/20/18 Unknown History mL) subcutaneous pen (Basaglar HYPERGLYCEMIA KwikPen U-100 Insulin) losartan 25 mg tablet 25 mg PO QHS 07/20/18 12/06/20 History metformin 500 mg tablet 1 tab PO BID 07/20/18 Unknown History omeprazole 20 mg capsule,delayed 20 mg PO DAILY 07/20/18 Unknown History release pravastatin 20 mg tablet 20 mg PO QHS 07/20/18 Unknown History Ca 600 mg-D3 20 mcg-mag oxide 50 1 tab PO DAILY 12/31/23 Unknown History os-Vh-gzdpzm-manganese -boron tablet (Calcium 600-D3 Plus (mag-zinc)) aspirin 81 mg capsule 81 mg PO DAILY 12/31/23 Unknown History estradiol 0.01% (0.1 mg/gram) 1 appful vaginal QWEEK 12/31/23 Unknown History vaginal cream (Estrace) glipizide 10 mg tablet 10 mg PO BID 12/31/23 Unknown History meclizine 25 mg tablet 25 mg PO 4X/DAY PRN PRN Dizziness 12/31/23 Unknown Rx #20 tabs Allergy/AdvReac Type Severity Reaction Status Date / Time No Known Allergies Allergy Verified 12/31/23 00:05 Social History Smoking Status: Never smoker ROS ROS ED Constitutional Constitutional ED: Denies chills or fever(s) Eyes Eyes: Denies blurry vision or change in vision ENT ENT ED: Denies rhinorrhea or sore throat Cardiovascular Cardiovascular: Denies chest pain Respiratory/Chest Respiratory/Chest: Denies cough or dyspnea Gastrointestinal Gastrointestinal: Reports nausea; Denies abdominal pain or vomiting Musculoskeletal Musculoskeletal: Denies arthralgias or myalgias Integumentary Denies rash Neurologic Neurologic: Reports other Details: Reports dizziness/vertigo ; Denies headache(s), paresthesias or weakness Hematologic/Lymphatic Hematologic/Lymphatic: Denies easy bleeding or easy bruising EXAM Physical Exam Const Vital Signs: 12/31/23 00:05 12/31/23 00:18 12/31/23 02:04 Temperature 96.7 F L Temperature Source Temporal Pulse Rate 93 72 Respiratory Rate 18 19 H Respiratory Effort Normal Non-Labored Respiratory Pattern Normal Blood Pressure 185/93 H 144/75 H Blood Pressure Mean 123 98 Pulse Ox 98 96 Oxygen Delivery Method Room Air Room Air Positive well nourished and well developed General Appearance ED: well developed and NAD HEENT Reports TM's clear and moist mucous membranes Negative for trauma Tympanic Membrane ED: Yes TM's clear Eyes PERRL and EOMs intact bilaterally Eyes Narrative: Patient has bilateral horizontal of fatiguing nystagmus with leftward gaze. Positive Hiram-Hallpike maneuver on the right. No rotary nystagmus appreciated. Neck supple Chest Wall inspection of chest normal Resp normal respiratory effort and clear to auscultation bilaterally Cardio regular rate and regular rhythm GI normal to inspection, nondistended, normoactive bowel sounds and non-tender Extremity normal to inspection General Extremety ED: Negati (more content not included)... Normal [facility] CBC W/Diff, Automatedon 07- Absolute Lymph 1.61 X10 3/uL Normal 0.83-4.51 [facility] Comment on above: Performed By: #### L 500.4050, L100.0100 ####[facility] [address] [place], [address] Absolute Neut 5.3 X10 3/uL Normal 2.0-7.7 [facility] Comment on above: Performed By: #### L 500.4050, L100.0100 ####[facility] [address] [place], [address] Basophils/100 WBC (Bld) 0.8 % Normal 0-1 [facility] Comment on above: Performed By: #### L 500.4050, L100.0100 ####[facility] [address] [place], [address] Eosinophils/100 WBC (Bld) 4.1 % Normal 0-5 [facility] Comment on above: Performed By: #### L 500.4050, L100.0100 ####[facility] [address] [place], [address] Erythrocyte distribution width (RBC) [Ratio] 13.0 % Normal 11.6-14.6 [facility] Comment on above: Performed By: #### L 500.4050, L100.0100 ####[facility] [address] [place], [address] Hematocrit (Bld) [Volume fraction] 40.8 % Normal 37-47 [facility] Comment on above: Performed By: #### L 500.4050, L100.0100 ####[facility] [address] [place], [address] Hemoglobin (Bld) [Mass/Vol] 13.3 g/dL Normal 12.0-15.0 [facility] Comment on above: Performed By: #### L 500.4050, L100.0100 ####[facility] [address] [place], [address] IG% 0.100 Normal 0.0-0.9 [facility] Comment on above: Result Comment: IG% - Immature Granulocytes (promyelocytes, myelocytes and metamyelocytes) > 1% indicates that a LEFT SHIFT is Present. Performed By: #### L 500.4050, L100.0100 ####[facility] [address] [place], [address] Lymphocytes/100 WBC (Bld) 20.2 % Normal 19-41 [facility] Comment on above: Performed By: #### L 500.4050, L100.0100 ####[facility] [address] [place], [address] MCH (RBC) [Entitic mass] 29.5 pg Normal 27.0-32.0 [facility] Comment on above: Performed By: #### L 500.4050, L100.0100 ####[facility] [address] [place], [address] MCHC (RBC) [Mass/Vol] 32.6 g/dL Normal 32-36 [facility] Comment on above: Performed By: #### L 500.4050, L100.0100 ####[facility] [address] [place], [address] MCV (RBC) [Entitic vol] 90.5 fL Normal 81-99 [facility] Comment on above: Performed By: #### L 500.4050, L100.0100 ####[facility] [address] [place], [address] Monocytes/100 WBC (Bld) 8.3 % Normal 0-10 [facility] Comment on above: Performed By: #### L 500.4050, L100.0100 ####[facility] [address] [place], [address] Neutrophils/100 WBC (Bld) 66.5 % Normal 47-70 [facility] Comment on above: Performed By: #### L 500.4050, L100.0100 ####[facility] [address] [place], [address] Nucleated RBC (Bld) [#/Vol] 0 10*3/uL Normal 0-5 [facility] Comment on above: Performed By: #### L 500.4050, L100.0100 ####[facility] [address] [place], [address] Platelet mean volume (Bld) [Entitic vol] 10.2 fL Normal 6.2-12.0 [facility] Comment on above: Performed By: #### L 500.4050, L100.0100 ####[facility] [address] [place], [address] Platelets (Bld) [#/Vol] 315 10*3/uL Normal 150-450 [facility] Comment on above: Performed By: #### L 500.4050, L100.0100 ####[facility] [address] [place], [address] RBC (Bld) [#/Vol] 4.51 10*6/uL Normal 4.2-5.4 [facility] Comment on above: Performed By: #### L 500.4050, L100.0100 ####[facility] [address] [place], [address] RDW SD 43.4 fl Normal 35.1-43.9 [facility] Comment on above: Performed By: #### L 500.4050, L100.0100 ####[facility] [address] [place], [address] WBC (Bld) [#/Vol] 8.0 10*3/uL Normal 4.4-11.0 [facility] Comment on above: Performed By: #### L 500.4050, L100.0100 ####[facility] [address] [place], [address] Comprehensive Metabolic Prof akon 11-02-2023 Albumin [Mass/Vol] 3.6 g/dL Normal 3.2-5.0 [facility] Comment on above: Performed By: #### L 500.4050, L100.0100 ####[facility] [address] [place], [address] Albumin/Globulin [Mass ratio] 0.9 {ratio} Normal 0.9-2.4 [facility] Comment on above: Performed By: #### L 500.4050, L100.0100 ####[facility] [address] [place], [address] ALK P 100 U/L Normal 45-117 [facility] Comment on above: Performed By: #### L 500.4050, L100.0100 ####[facility] [address] [place], [address] ALT [Catalytic activity/Vol] 30 U/L Normal 13-56 [facility] Comment on above: Performed By: #### L 500.4050, L100.0100 ####[facility] [address] [place], [address] AST [Catalytic activity/Vol] 21 U/L Normal 15-37 [facility] Comment on above: Performed By: #### L 500.4050, L100.0100 ####[facility] [address] [place], [address] Bilirubin [Mass/Vol] 0.30 mg/dL Normal 0.20-1.00 [facility] Comment on above: Result Comment: For patients on eltrombopag therapy, use of Dimension [place] TBIL is not recommended. Performed By: #### L 500.4050, L100.0100 ####[facility] [address] [place], [address] BUN/CRE 12.5 RATIO Normal 10-20 [facility] Comment on above: Performed By: #### L 500.4050, L100.0100 ####[facility] [address] [place], [address] CA,Total 9.2 mg/dL Normal 8.5-10.1 [facility] Comment on above: Performed By: #### L 500.4050, L100.0100 ####[facility] [address] [place], [address] Chloride [Moles/Vol] 103 mmol/L Normal 98-107 [facility] Comment on above: Performed By: #### L 500.4050, L100.0100 ####[facility] [address] [place], [address] CO2 [Moles/Vol] 29.0 mmol/L Normal 21.0-32.0 [facility] Comment on above: Performed By: #### L 500.4050, L100.0100 ####[facility] [address] [place], [address] Creatinine [Mass/Vol] 0.80 mg/dL Normal 0.55-1.02 [facility] Comment on above: Result Comment: The validity of the calculated GFR GFRAA in patients over 70 years has not been determined. Clinical correlation is essential. Performed By: #### L 500.4050, L100.0100 ####[facility] [address] [place], [address] EST GFR - AA 91 mL/min Normal >60 [facility] Comment on above: Result Comment: Afri can [place]une[place] GFR Calc Performed By: #### L 500.4050, L100.0100 ####[facility] [address] [place], [address] GAP 7 Normal 5-15 [facility] Comment on above: Performed By: #### L 500.4050, L100.0100 ####[facility] [address] [place], [address] GFR/1.73 sq M.predicted among non-blacks MDRD (S/P/Bld) [Vol rate/Area] 75 mL/min/{1.73_m2} Normal >60 [facility] Comment on above: Result Comment: Non- GFR Calc Performed By: #### L 500.4050, L100.0100 ####[facility] [address] [place], [address] Globulin (S) [Mass/Vol] 4.0 g/dL Normal 2.2-4.2 [facility] Comment on above: Performed By: #### L 500.4050, L100.0100 ####[facility] [address] [place], [address] Glucose [Mass/Vol] 123 mg/dL High 74-106 [facility] Comment on above: Result Comment: Fast ing Glucose result from 100 to 125 mg/dL suggests IMPAIRED HOMEOSTASIS per A.D.A. criteria. Performed By: #### L 500.4050, L100.0100 ####[facility] [address] [place], [address] Potassium [Moles/Vol] 3.6 mmol/L Normal 3.5-5.1 [facility] Comment on above: Performed By: #### L 500.4050, L100.0100 ####[facility] [address] [place], [address] Sodium [Moles/Vol] 139 mmol/L Normal 136-145 [facility] Comment on above: Performed By: #### L 500.4050, L100.0100 ####[facility] [address] [place], [address] T PROT 7.6 g/dL Normal 6.4-8.2 [facility] Comment on above: Performed By: #### L 500.4050, L100.0100 ####[facility] [address] [place], [address] Urea nitrogen [Mass/Vol] 10 mg/dL Normal 7-18 [facility] Comment on above: Performed By: #### L 500.4050, L100.0100 ####[facility] [address] [place], [address] Absolute lymphocyte countOrd ered By: Nidia Albright on 04-20-2023 Lymphocytes Auto (Unsp spec) [#/Vol] 1.89 10*3/uL 0.83-4.51 [facility] Basophil percentageOrdered B y: Nidia Albright on 04-20-2023 Basophils/100 WBC (Bld) 1.0 % 0-1 [facility] Bilirubin [Mass/Vol] 0.30 mg/dL 0.20-1.00 [facility] Comment on above: For patients on eltr ombopag therapy, use of Dimension [place] TBIL is not recommended. Chloride [Moles/Vol] 105 mmol/L 98-107 [facility] Eosinophils/100 WBC (Bld) 3.4 % 0-5 [facility] Glucose [Mass/Vol] 190 mg/dL 74-106 [facility] Comment on above: Fasting Glucose resu lt greater than or equal to 126 mg/dL suggests DIABETES MELLITUS per A.D.A. criteria. Neutrophils (Bld) [#/Vol] 3.5 10*3/uL 2.0-7.7 [facility] Neutrophils/100 WBC (Bld) 56.1 % 47-70 [facility] Potassium [Moles/Vol] 4.0 mmol/L 3.5-5.1 [facility] Protein [Mass/Vol] 7.3 g/dL 6.4-8.2 [facility] Sodium [Moles/Vol] 138 mmol/L 136-145 [facility] WBC (Bld) [#/Vol] 6.2 10*3/uL 4.4-11.0 [facility] Blood erythrocytes count (nu mber/volume)Ordered By: Nidia Albright on 04-20-2023 RBC (Bld) [#/Vol] 4.31 10*6/uL 4.2-5.4 [facility] Blood hemoglobin measurement (mass/volume)Ordered By: Nidia Albright on 04-20-2023 Hemoglobin (Bld) [Mass/Vol] 12.8 g/dL 12.0-15.0 [facility] Blood lymphocytes/100 leukoc ytesOrdered By: Nidia Albright on 04-20-2023 Lymphocytes/100 WBC (Bld) 30.4 % 19-41 [facility] Blood monocytes/100 leukocyt esOrdered By: Nidiamiranda Albright on 04-20-2023 Monocytes/100 WBC (Bld) 8.8 % 0-10 [facility] Blood platelet mean volumeOr dered By: Nidia Albright on 04-20-2023 Platelet mean volume (Bld) [Entitic vol] 10.3 fL 6.2-12.0 [facility] Determination of erythrocyte mean corpuscular volume (MCV)Ordered By: Nidia Albright on 04-20-2023 MCV (RBC) [Entitic vol] 90.7 fL 81-99 [facility] Hematocrit Auto (Bld) [Volum e fraction]Ordered By: Nidia Natalee on 04-20-2023 Hematocrit (Bld) [Volume fraction] 39.1 % 37-47 [facility] Laboratory - Chemistry and C hemistry - challengeOrdered By: [facility] Natalee on 04-20-2023 ALP [Catalytic activity/Vol] 88 U/L 45-117 [facility] ALT [Catalytic activity/Vol] 29 U/L 13-56 [facility] CO2 [Moles/Vol] 29.0 mmol/L 21.0-32.0 [facility] Globulin (S) [Mass/Vol] 3.9 g/dL 2.2-4.2 [facility] Urea nitrogen/Creatinine [Mass ratio] 14.9 mg/mg 10-20 [facility] Laboratory - Hematology and Cell countsOrdered By: Nidiamiranda Albright on 04-20-2023 Erythrocyte distribution width (RBC) [Entitic vol] 44.3 fL 35.1-43.9 [facility] Erythrocyte distribution width (RBC) [Ratio] 13.2 % 11.6-14.6 [facility] Immature granulocytes/100 WBC (Bld) 0.300 % 0.0-0.9 [facility] Comment on above: IG% - Immature Granu locytes (promyelocytes, myelocytes and metamyelocytes) > 1% indicates that a LEFT SHIFT is Present. MCH (RBC) [Entitic mass] 29.7 pg 27.0-32.0 [facility] Nucleated RBC/100 WBC (Bld) [Ratio] 0 % 0-5 [facility] MCHC Auto (RBC) [Mass/Vol]Or dered By: Nidia Albright on 04-20-2023 MCHC (RBC) [Mass/Vol] 32.7 g/dL 32-36 [facility] No Panel InformationOrdered By: Nidia Albright on 04-20-2023 Estimated GFR (MDRD) Amer 91 mL/min >60 [facility] Comment on above: GFR Calc Estimated GFR (MDRD) Non-Af Amer 75 mL/min >60 [facility] Comment on above: Non- GFR Calc Platelets bldOrdered By: Aparna Albright on 04-20-2023 Platelets (Bld) [#/Vol] 283 10*3/uL 150-450 [facility] Serum or plasma albumin kashmir urement (mass/volume)Ordered By: Nidia Albright on 04-20-2023 Albumin [Mass/Vol] 3.4 g/dL 3.2-5.0 [facility] Serum or plasma albumin/glob ulin mass ratioOrdered By: Nidia Albright on 04-20-2023 Albumin/Globulin [Mass ratio] 0.9 {ratio} 0.9-2.4 [facility] Serum or plasma calcium kashmir urement (mass/volume)Ordered By: Nidia Albright on 04-20-2023 Calcium [Mass/Vol] 9.0 mg/dL 8.5-10.1 [facility] Serum or plasma creatinine m easurement (mass/volume)Ordered By: Nidia Albright on 04-20-2023 Creatinine [Mass/Vol] 0.80 mg/dL 0.55-1.02 [facility] Comment on above: The validity of the calculated GFR & GFRAA in patients over 70 years has not been determined. Clinical correlation is essential. Serum or plasma urea nitroge n measurement (mass/volume)Ordered By: Nidia Albright on 04-20-2023 Urea nitrogen [Mass/Vol] 12 mg/dL 7-18 [facility] Thin prep Papanicolaou smear with manual screeningOrdered By: Nidia Albright on 04-20-2023 Thin prep Papanicolaou smear with manual screening 19 U/L 15-37 [facility] Thin prep Papanicolaou smear with manual screening 4 5-15 [facility] Absolute lymphocyte countOrd ered By: Nidia Albright on 10-22-2022 Lymphocytes Auto (Unsp spec) [#/Vol] 2.08 10*3/uL 0.83-4.51 [facility] Basophil percentageOrdered B y: Nidia Albright on 10-22-2022 Basophils/100 WBC (Bld) 0.8 % 0-1 [facility] Bilirubin [Mass/Vol] 0.40 mg/dL 0.20-1.00 [facility] Comment on above: For patients on eltr ombopag therapy, use of Dimension [place] TBIL is not recommended. Chloride [Moles/Vol] 105 mmol/L 98-107 [facility] Eosinophils/100 WBC (Bld) 2.6 % 0-5 [facility] Glucose [Mass/Vol] 135 mg/dL 74-106 [facility] Comment on above: Fasting Glucose resu lt greater than or equal to 126 mg/dL suggests DIABETES MELLITUS per A.D.A. criteria. Neutrophils (Bld) [#/Vol] 4.8 10*3/uL 2.0-7.7 [facility] Neutrophils/100 WBC (Bld) 60.1 % 47-70 [facility] Potassium [Moles/Vol] 3.7 mmol/L 3.5-5.1 [facility] Protein [Mass/Vol] 7.8 g/dL 6.4-8.2 [facility] Sodium [Moles/Vol] 139 mmol/L 136-145 [facility] WBC (Bld) [#/Vol] 8.0 10*3/uL 4.4-11.0 [facility] Blood erythrocytes count (nu mber/volume)Ordered By: Nidia Albright on 10-22-2022 RBC (Bld) [#/Vol] 4.25 10*6/uL 4.2-5.4 [facility] Blood hemoglobin measurement (mass/volume)Ordered By: Nidia Albright on 10-22-2022 Hemoglobin (Bld) [Mass/Vol] 12.8 g/dL 12.0-15.0 [facility] Blood lymphocytes/100 leukoc ytesOrdered By: Nidia Albright on 10-22-2022 Lymphocytes/100 WBC (Bld) 26.1 % 19-41 [facility] Blood monocytes/100 leukocyt esOrdered By: Nidia Albright on 10-22-2022 Monocytes/100 WBC (Bld) 10.0 % 0-10 [facility] Blood platelet mean volumeOr dered By: Nidia Albright on 10-22-2022 Platelet mean volume (Bld) [Entitic vol] 10.1 fL 6.2-12.0 [facility] Determination of erythrocyte mean corpuscular volume (MCV)Ordered By: Nidia Albright on 10-22-2022 MCV (RBC) [Entitic vol] 92.2 fL 81-99 [facility] Hematocrit Auto (Bld) [Volum e fraction]Ordered By: Nidia Albright on 10-22-2022 Hematocrit (Bld) [Volume fraction] 39.2 % 37-47 [facility] Laboratory - Chemistry and C hemistry - challengeOrdered By: [facility] Natalee on 10-22-2022 ALP [Catalytic activity/Vol] 155 U/L 45-117 [facility] ALT [Catalytic activity/Vol] 41 U/L 13-56 [facility] CO2 [Moles/Vol] 28.0 mmol/L 21.0-32.0 [facility] Globulin (S) [Mass/Vol] 4.4 g/dL 2.2-4.2 [facility] Urea nitrogen/Creatinine [Mass ratio] 7.8 mg/mg 10-20 [facility] Laboratory - Hematology and Cell countsOrdered By: Nidiamiranda Albright on 10-22-2022 Erythrocyte distribution width (RBC) [Entitic vol] 44.3 fL 35.1-43.9 [facility] Erythrocyte distribution width (RBC) [Ratio] 13.1 % 11.6-14.6 [facility] Immature granulocytes/100 WBC (Bld) 0.400 % 0.0-0.9 [facility] Comment on above: IG% - Immature Granu locytes (promyelocytes, myelocytes and metamyelocytes) > 1% indicates that a LEFT SHIFT is Present. MCH (RBC) [Entitic mass] 30.1 pg 27.0-32.0 [facility] Nucleated RBC/100 WBC (Bld) [Ratio] 0 % 0-5 [facility] MCHC Auto (RBC) [Mass/Vol]Or dered By: Nidia Albright on 10-22-2022 MCHC (RBC) [Mass/Vol] 32.7 g/dL 32-36 [facility] No Panel InformationOrdered By: Nidia Albright on 10-22-2022 Estimated GFR (MDRD) Amer 97 mL/min >60 [facility] Comment on above: GFR Calc Estimated GFR (MDRD) Non-Af Amer 80 mL/min >60 [facility] Comment on above: Non- GFR Calc Platelets bldOrdered By: Aparna Albright on 10-22-2022 Platelets (Bld) [#/Vol] 274 10*3/uL 150-450 [facility] Serum or plasma albumin kashmir urement (mass/volume)Ordered By: Nidia Albright on 10-22-2022 Albumin [Mass/Vol] 3.4 g/dL 3.2-5.0 [facility] Serum or plasma albumin/glob ulin mass ratioOrdered By: Nidia Albright on 10-22-2022 Albumin/Globulin [Mass ratio] 0.8 {ratio} 0.9-2.4 [facility] Serum or plasma calcium kashmir urement (mass/volume)Ordered By: Nidia Albright on 10-22-2022 Calcium [Mass/Vol] 9.1 mg/dL 8.5-10.1 [facility] Serum or plasma creatinine m easurement (mass/volume)Ordered By: Nidia Albright on 10-22-2022 Creatinine [Mass/Vol] 0.76 mg/dL 0.55-1.02 [facility] Comment on above: The validity of the calculated GFR & GFRAA in patients over 70 years has not been determined. Clinical correlation is essential. Serum or plasma urea nitroge n measurement (mass/volume)Ordered By: Nidia Albright on 10-22-2022 Urea nitrogen [Mass/Vol] 6 mg/dL 7-18 [facility] Thin prep Papanicolaou smear with manual screeningOrdered By: Nidia Albright on 10-22-2022 Thin prep Papanicolaou smear with manual screening 28 U/L 15-37 [facility] Thin prep Papanicolaou smear with manual screening 6 5-15 [facility] GLUCOSE, BLOOD (POC)on 08-10 Glucose [Mass/Vol] 228 mg/dL Abnormal 74 - 99 mg/dL [facility] No Panel Informationon 08-10 [facility] XR Cervical spine AP and Lat eral and obliqueon 08-10-2022 IMPRESSION: 1. Preservation of vertebral body height. 2. Mild degenerative changes in the lower cervical spine. Strength And Conditioning Coach: NEISHA Transcribe Date/Time: Aug 10 2022 12:39P Dictated by : SAL FREY MD This examination was interpreted and the report reviewed and electronically signed by: SAL FREY MD on Aug 10 2022 12:41PM [facility] DIVISION OF RADIOLOGY * * *Final Report* * * DATE OF EXAM: Aug 10 2022 12:27PM WOX [id number] - XR CERVICAL 4V AP/LAT/OBL / PROCEDURE REASON: Neck pain * * * * Physician Interpretation * * * * TITLE: XR CERVICAL 4V AP/LAT/OBL CLINICAL INDICATION: Neck pain TECHNIQUE: AP, lateral and bilateral oblique radiographs of the cervical spine COMPARISON: None FINDINGS: Normal prevertebral soft tissues. Preservation of the normal cervical lordosis. Preservation of vertebral body height. Mild disc space narrowing at C5/C6 and C6/C7. Mild facet joint arthrosis also present at these levels with mild bilateral neural foraminal narrowing. DIVISION OF RADIOLOGY [facility] * * *Final Report* * * DATE OF EXAM: Aug 10 2022 12:27PM WOX [id number] - XR CERVICAL 4V AP/LAT/OBL / PROCEDURE REASON: Neck pain * * * * Physician Interpretation * * * * TITLE: XR CERVICAL 4V AP/LAT/OBL CLINICAL INDICATION: Neck pain TECHNIQUE: AP, lateral and bilateral oblique radiographs of the cervical spine COMPARISON: None FINDINGS: Normal prevertebral soft tissues. Preservation of the normal cervical lordosis. Preservation of vertebral body height. Mild disc space narrowing at C5/C6 and C6/C7. Mild facet joint arthrosis also present at these levels with mild bilateral neural foraminal narrowing. IMPRESSION IMPRESSION: 1. Preservation of vertebral body height. 2. Mild degenerative changes in the lower cervical spine. Strength And Conditioning Coach: NEISHA Transcribe Date/Time: Aug 10 2022 12:39P Dictated by : SAL FREY MD This examination was interpreted and the report reviewed and electronically signed by: SAL FREY MD on Aug 10 2022 12:41PM EST [facility] Radiology Study observation (narrative) [facility] XR Cervical spine AP and Lat eral and obliqueOrdered By: [facility] Provider on 08-10-2022 [facility] COLONOSCOPY DIAGNOSTICon [facility] No Panel Informationon 05-19 Miscellaneous Test See comment [facility] Comment on above: Sent directly to [facility] per ordering physician. Absolute lymphocyte countOrd ered By: Dr. Albright on 05-07-2022 Lymphocytes Auto (Unsp spec) [#/Vol] 1.47 10*3/uL 0.83-4.51 [facility] Basophil percentageOrdered B y: Dr. Albright on 05-07-2022 Basophils/100 WBC (Bld) 0.8 % 0-1 [facility] Bilirubin [Mass/Vol] 0.30 mg/dL 0.20-1.00 [facility] Comment on above: For patients on eltr ombopag therapy, use of Dimension [place] TBIL is not recommended. Chloride [Moles/Vol] 102 mmol/L 98-107 [facility] Eosinophils/100 WBC (Bld) 2.2 % 0-5 [facility] Glucose [Mass/Vol] 135 mg/dL 74-106 [facility] Comment on above: Fasting Glucose resu lt greater than or equal to 126 mg/dL suggests DIABETES MELLITUS per A.D.A. criteria. Neutrophils (Bld) [#/Vol] 4.1 10*3/uL 2.0-7.7 [facility] Neutrophils/100 WBC (Bld) 65.6 % 47-70 [facility] Potassium [Moles/Vol] 3.9 mmol/L 3.5-5.1 [facility] Protein [Mass/Vol] 7.6 g/dL 6.4-8.2 [facility] Sodium [Moles/Vol] 137 mmol/L 136-145 [facility] WBC (Bld) [#/Vol] 6.3 10*3/uL 4.4-11.0 [facility] Blood erythrocytes count (nu mber/volume)Ordered By: Dr. Albright on 05-07-2022 RBC (Bld) [#/Vol] 4.38 10*6/uL 4.2-5.4 [facility] Blood hemoglobin measurement (mass/volume)Ordered By: Dr. Albright on 05-07-2022 Hemoglobin (Bld) [Mass/Vol] 13.1 g/dL 12.0-15.0 [facility] Blood lymphocytes/100 leukoc ytesOrdered By: Dr. Albright on 05-07-2022 Lymphocytes/100 WBC (Bld) 23.5 % 19-41 [facility] Blood monocytes/100 leukocyt esOrdered By: Dr. Albright on 05-07-2022 Monocytes/100 WBC (Bld) 7.7 % 0-10 [facility] Blood platelet mean volumeOr dered By: Dr. Albright on 05-07-2022 Platelet mean volume (Bld) [Entitic vol] 10.2 fL 6.2-12.0 [facility] Determination of erythrocyte mean corpuscular volume (MCV)Ordered By: Dr. Albright on 05-07-2022 MCV (RBC) [Entitic vol] 91.3 fL 81-99 [facility] Hematocrit Auto (Bld) [Volum e fraction]Ordered By: Dr. Albright on 05-07-2022 Hematocrit (Bld) [Volume fraction] 40.0 % 37-47 [facility] Laboratory - Chemistry and C hemistry - challengeOrdered By: Dr. Albright on 05-07-2022 ALP [Catalytic activity/Vol] 75 U/L 45-117 [facility] ALT [Catalytic activity/Vol] 31 U/L 13-56 [facility] CO2 [Moles/Vol] 30.0 mmol/L 21.0-32.0 [facility] Globulin (S) [Mass/Vol] 3.8 g/dL 2.2-4.2 [facility] Urea nitrogen/Creatinine [Mass ratio] 12.5 mg/mg 10-20 [facility] Laboratory - Hematology and Cell countsOrdered By: Dr. Albright on 05-07-2022 Erythrocyte distribution width (RBC) [Entitic vol] 44.7 fL 35.1-43.9 [facility] Erythrocyte distribution width (RBC) [Ratio] 13.2 % 11.6-14.6 [facility] Immature granulocytes/100 WBC (Bld) 0.200 % 0.0-0.9 [facility] Comment on above: IG% - Immature Granu locytes (promyelocytes, myelocytes and metamyelocytes) > 1% indicates that a LEFT SHIFT is Present. MCH (RBC) [Entitic mass] 29.9 pg 27.0-32.0 [facility] Nucleated RBC/100 WBC (Bld) [Ratio] 0 % 0-5 [facility] MCHC Auto (RBC) [Mass/Vol]Or dered By: Dr. Albright on 05-07-2022 MCHC (RBC) [Mass/Vol] 32.8 g/dL 32-36 [facility] No Panel InformationOrdered By: Dr. Albright on 05-07-2022 Estimated GFR (MDRD) Amer 92 mL/min >60 [facility] Comment on above: GFR Calc Estimated GFR (MDRD) Non-Af Amer 76 mL/min >60 [facility] Comment on above: Non- GFR Calc Platelets bldOrdered By: Dr. Albright on 05-07-2022 Platelets (Bld) [#/Vol] 302 10*3/uL 150-450 [facility] Serum or plasma albumin kashmir urement (mass/volume)Ordered By: Dr. Albright on 05-07-2022 Albumin [Mass/Vol] 3.8 g/dL 3.2-5.0 [facility] Serum or plasma albumin/glob ulin mass ratioOrdered By: Dr. Albright on 05-07-2022 Albumin/Globulin [Mass ratio] 1.0 {ratio} 0.9-2.4 [facility] Serum or plasma calcium kashmir urement (mass/volume)Ordered By: Dr. Albright on 05-07-2022 Calcium [Mass/Vol] 8.9 mg/dL 8.5-10.1 [facility] Serum or plasma creatinine m easurement (mass/volume)Ordered By: Dr. Albright on 05-07-2022 Creatinine [Mass/Vol] 0.80 mg/dL 0.55-1.02 [facility] Comment on above: The validity of the calculated GFR & GFRAA in patients over 70 years has not been determined. Clinical correlation is essential. Serum or plasma urea nitroge n measurement (mass/volume)Ordered By: Dr. Albright on 05-07-2022 Urea nitrogen [Mass/Vol] 10 mg/dL 7-18 [facility] Thin prep Papanicolaou smear with manual screeningOrdered By: Dr. Albright on 05-07-2022 Thin prep Papanicolaou smear with manual screening 20 U/L 15- [facility] Thin prep Papanicolaou smear with manual screening 5 5-15 [facility] DEDE SCREENINGon 03-30-2022 [facility] Absolute lymphocyte counton 11-07-2021 Lymphocytes Auto (Unsp spec) [#/Vol] 1.47 10*3/uL 0.83-4.51 [facility] Work Phone: Basophil percentageon 2021 Basophils/100 WBC (Bld) 1.0 % 0-1 [facility] Work Phone: Bilirubin [Mass/Vol] 0.30 mg/dL 0.20-1.00 [facility] Work Phone: Comment on above: For patients on eltr ombopag therapy, use of Dimension [place] TBIL is not recommended. Chloride [Moles/Vol] 102 mmol/L 98-107 [facility] Work Phone: Eosinophils/100 WBC (Bld) 2.4 % 0-5 [facility] Work Phone: Glucose [Mass/Vol] 152 mg/dL 74-106 [facility] Work Phone: Comment on above: Fasting Glucose resu lt greater than or equal to 126 mg/dL suggests DIABETES MELLITUS per A.D.A. criteria. Neutrophils (Bld) [#/Vol] 3.7 10*3/uL 2.0-7.7 [facility] Work Phone: Neutrophils/100 WBC (Bld) 63.4 % 47-70 [facility] Work Phone: Potassium [Moles/Vol] 4.2 mmol/L 3.5-5.1 [facility] Work Phone: Protein [Mass/Vol] 7.9 g/dL 6.4-8.2 [facility] Work Phone: [phone] Sodium [Moles/Vol] 138 mmol/L 136-145 [facility] Work Phone: WBC (Bld) [#/Vol] 5.8 10*3/uL 4.4-11.0 [facility] Work Phone: Blood erythrocytes count (nu mber/volume)on 11-07-2021 RBC (Bld) [#/Vol] 4.33 10*6/uL 4.2-5.4 [facility] Work Phone: Blood hemoglobin measurement (mass/volume)on 11-07-2021 Hemoglobin (Bld) [Mass/Vol] 13.4 g/dL 12.0-15.0 [facility] Work Phone: Blood lymphocytes/100 leukoc yteson 11-07-2021 Lymphocytes/100 WBC (Bld) 25.3 % 19-41 [facility] Work Phone: Blood monocytes/100 leukocyt eson 11-07-2021 Monocytes/100 WBC (Bld) 7.7 % 0-10 [facility] Work Phone: Blood platelet mean volumeon 11-07-2021 Platelet mean volume (Bld) [Entitic vol] 10.2 fL 6.2-12.0 [facility] Work Phone: Determination of erythrocyte mean corpuscular volume (MCV)on 11-07-2021 MCV (RBC) [Entitic vol] 92.6 fL 81-99 [facility] Work Phone: [phone] Hematocrit Auto (Bld) [Volum e fraction]on 11-07-2021 Hematocrit (Bld) [Volume fraction] 40.1 % 37-47 [facility] Work Phone: [phone] Laboratory - Chemistry and C hemistry - challengeon 11-07-2021 ALP [Catalytic activity/Vol] 88 U/L 45-117 [facility] Work Phone: [phone] ALT [Catalytic activity/Vol] 31 U/L 13-56 [facility] Work Phone: [phone] CO2 [Moles/Vol] 29.0 mmol/L 21.0-32.0 [facility] Work Phone: [phone] Globulin (S) [Mass/Vol] 4.0 g/dL 2.2-4.2 [facility] Work Phone: [phone] Urea nitrogen/Creatinine [Mass ratio] 17.0 mg/mg 10-20 [facility] Work Phone: [phone] Laboratory - Hematology and Cell countson 11-07-2021 Erythrocyte distribution width (RBC) [Entitic vol] 43.9 fL 35.1-43.9 [facility] Work Phone: [phone] Erythrocyte distribution width (RBC) [Ratio] 12.9 % 11.6-14.6 [facility] Work Phone: [phone] Immature granulocytes/100 WBC (Bld) 0.200 % 0.0-0.9 [facility] Work Phone: [phone] Comment on above: IG% - Immature Granu locytes (promyelocytes, myelocytes and metamyelocytes) > 1% indicates that a LEFT SHIFT is Present. MCH (RBC) [Entitic mass] 30.9 pg 27.0-32.0 [facility] Work Phone: [phone] Nucleated RBC/100 WBC (Bld) [Ratio] 0 % 0-5 [facility] Work Phone: MCHC Auto (RBC) [Mass/Vol]on 11-07-2021 MCHC (RBC) [Mass/Vol] 33.4 g/dL 32-36 [facility] Work Phone: No Panel Informationon 11-07 Estimated GFR (MDRD) Amer 97 mL/min >60 [facility] Work Phone: Comment on above: GFR Calc Estimated GFR (MDRD) Non-Af Amer 80 mL/min >60 [facility] Work Phone: Comment on above: Non- GFR Calc Platelets bldon 11-07-2021 Platelets (Bld) [#/Vol] 316 10*3/uL 150-450 [facility] Work Phone: Serum or plasma albumin kashmir urement (mass/volume)on 11-07-2021 Albumin [Mass/Vol] 3.9 g/dL 3.2-5.0 [facility] Work Phone: [phone] Serum or plasma albumin/glob ulin mass ratioon 11-07-2021 Albumin/Globulin [Mass ratio] 1.0 {ratio} 0.9-2.4 [facility] Work Phone: [phone] Serum or plasma calcium kashmir urement (mass/volume)on 11-07-2021 Calcium [Mass/Vol] 9.2 mg/dL 8.5-10.1 [facility] Work Phone: [phone] Serum or plasma creatinine m easurement (mass/volume)on 11-07-2021 Creatinine [Mass/Vol] 0.76 mg/dL 0.55-1.02 [facility] Work Phone: Comment on above: The validity of the calculated GFR & GFRAA in patients over 70 years has not been determined. Clinical correlation is essential. Serum or plasma urea nitroge n measurement (mass/volume)on 11-07-2021 Urea nitrogen [Mass/Vol] 13 mg/dL 7-18 [facility] Work Phone: Thin prep Papanicolaou smear with manual screeningon 11-07-2021 Thin prep Papanicolaou smear with manual screening 22 U/L 15-37 [facility] Work Phone: Thin prep Papanicolaou smear with manual screening 7 5-15 [facility] Work Phone: XR Foot - left AP and Latera l and obliqueon 09-02-2020 IMPRESSION: ENTHESOPHYTES DESCRIBED. DEGENERATIVE CHANGE. NO ACUTE FRACTURE Strength And Conditioning Coach: [facility] Transcribe Date/Time: Sep 02 2020 11:08A Dictated by : JENNYFER GIBBONS MD This examination was interpreted and the report reviewed and electronically signed by: JENNYFER GIBBONS MD on Sep 02 2020 11:10AM [facility] DIVISION OF RADIOLOGY * * *Final Report* * * DATE OF EXAM: Sep 02 2020 10:14AM [id number] - XR FOOT 3V AP/LAT/OBL LT / PROCEDURE REASON: Foot pain, left * * * * Physician Interpretation * * * * Examination: XR FOOT 3V AP/LAT/OBL LT History: Foot pain, left Technique: XR FOOT 3V AP/LAT/OBL LT Comparison: None RESULT: No fracture or focal bony abnormality. Normal mineralization and alignment. Moderate degenerative change involving the distal interphalangeal joint of the second digit, with hammertoe deformity. Large enthesophyte at the Achilles insertion. Moderate plantar enthesophyte. DIVISION OF RADIOLOGY [facility] * * *Final Report* * * DATE OF EXAM: Sep 02 2020 10:14AM [id number] - XR FOOT 3V AP/LAT/OBL LT / PROCEDURE REASON: Foot pain, left * * * * Physician Interpretation * * * * Examination: XR FOOT 3V AP/LAT/OBL LT History: Foot pain, left Technique: XR FOOT 3V AP/LAT/OBL LT Comparison: None RESULT: No fracture or focal bony abnormality. Normal mineralization and alignment. Moderate degenerative change involving the distal interphalangeal joint of the second digit, with hammertoe deformity. Large enthesophyte at the Achilles insertion. Moderate plantar enthesophyte. IMPRESSION IMPRESSION: ENTHESOPHYTES DESCRIBED. DEGENERATIVE CHANGE. NO ACUTE FRACTURE Strength And Conditioning Coach: [facility] Transcribe Date/Time: Sep 02 2020 11:08A Dictated by : JENNYFER GIBBONS MD This examination was interpreted and the report reviewed and electronically signed by: JENNYFER GIBBONS MD on Sep 02 2020 11:10AM EST [facility] Radiology Study observation (narrative) Shaun burch [facility] XR Foot - left AP and Latera l and obliqueOrdered By: [facility]cf Provider on 09-02-2020 [facility] Vital Signs Date Time Vital Sign Value Performing Clinician Facility 09-19-2024 09:29-0400 Body temperature 97.7 [degF] Ebony Hong HEALTHCARE OR MEDICAL.DEBUG TECHNICIAN Work Phone: [facility] 09-19-2024 09:29-0400 Diastolic blood pressure 78 mm[Hg] Ebony Hong HEALTHCARE OR MEDICAL.DEBUG TECHNICIAN Work Phone: [facility] 09-19-2024 09:29-0400 Heart rate 61 /min Ebony Hong HEALTHCARE OR MEDICAL.DEBUG TECHNICIAN Work Phone: [facility] 09-19-2024 09:29-0400 Systolic blood pressure 132 mm[Hg] Ebony Hong HEALTHCARE OR MEDICAL.DEBUG TECHNICIAN Work Phone: [facility] 09-19-2024 09:28-0400 Body mass index (BMI) [Ratio] 30.27 kg/m2 Ebony Hong HEALTHCARE OR MEDICAL.DEBUG TECHNICIAN Work Phone: [facility] 09-19-2024 09:28-0400 Body weight 80 kg Ebony Hong HEALTHCARE OR MEDICAL.DEBUG TECHNICIAN Work Phone: [facility] 09-19-2024 09:28-0400 Respiratory rate 16 /min Ebony Hong HEALTHCARE OR MEDICAL.DEBUG TECHNICIAN Work Phone: [facility] 09-01-2024 12:01-0400 Body mass index (BMI) [Ratio] 30.65 kg/m2 Ebony Hong HEALTHCARE OR MEDICAL.DEBUG TECHNICIAN Work Phone: [facility] 09-01-2024 12:01-0400 Body temperature 98.6 [degF] Ebony Hong HEALTHCARE OR MEDICAL.DEBUG TECHNICIAN Work Phone: [facility] 09-01-2024 12:01-0400 Body weight 81 kg Ebony Hong HEALTHCARE OR MEDICAL.DEBUG TECHNICIAN Work Phone: [facility] 09-01-2024 12:01-0400 Diastolic blood pressure 79 mm[Hg] Ebony Jacobos HEALTHCARE OR MEDICAL.DEBUG TECHNICIAN Work Phone: [facility] 09-01-2024 12:01-0400 Heart rate 67 /min Ebony Jacobos HEALTHCARE OR MEDICAL.DEBUG TECHNICIAN Work Phone: [facility] 09-01-2024 12:01-0400 Respiratory rate 14 /min Ebony Hong HEALTHCARE OR MEDICAL.DEBUG TECHNICIAN Work Phone: [facility] 09-01-2024 12:01-0400 SaO2% (BldA) [Mass fraction] 96 % Ebony Hong HEALTHCARE OR MEDICAL.DEBUG TECHNICIAN Work Phone: [facility] 09-01-2024 12:01-0400 Systolic blood pressure 152 mm[Hg] Ebony Hong HEALTHCARE OR MEDICAL.DEBUG TECHNICIAN Work Phone: [facility] 08-28-2024 00:34-0400 Body temperature 98.4 [degF] Dr. Iglesia Messina MD Work Phone: [facility] 08-28-2024 00:34-0400 Diastolic blood pressure 80 mm[Hg] Dr. Iglesia Messina MD Work Phone: [facility] 08-28-2024 00:34-0400 Heart rate 92 /min Dr. Iglesia Messina MD Work Phone: [facility] 08-28-2024 00:34-0400 Respiratory rate 14 /min Dr. Iglesia Messina MD Work Phone: [facility] 08-28-2024 00:34-0400 SaO2% (BldA) [Mass fraction] 100 % Dr. Iglesia Messina MD Work Phone: [facility] 08-28-2024 00:34-0400 Systolic blood pressure 104 mm[Hg] Dr. Iglesia Messina MD Work Phone: [facility] 08-27-2024 21:42-0400 Body mass index (BMI) [Ratio] 31.7 kg/m2 Dr. Iglesia Messina MD Work Phone: [facility] 08-27-2024 21:42-0400 Body weight 84.[address] Iglesia Messina MD Work Phone: [facility] 08-27-2024 21:33-0400 Body height 162.[address] Iglesia Messina MD Work Phone: [facility] 07-24-2024 09:04-0400 Body mass index (BMI) [Ratio] 31.07 kg/m2 Iglesia Messina MD Work Phone: [facility] 07-24-2024 09:04-0400 Body weight 82.1 kg Iglesia Messina MD Work Phone: [facility] 07-24-2024 09:04-0400 Diastolic blood pressure 76 mm[Hg] Iglesai Messina MD Work Phone: [facility] 07-24-2024 09:04-0400 Heart rate 60 /min Iglesia Messina MD Work Phone: [facility] 07-24-2024 09:04-0400 Respiratory rate 12 /min Iglesia Messina MD Work Phone: [facility] 07-24-2024 09:04-0400 Systolic blood pressure 120 mm[Hg] Iglesia Messina MD Work Phone: [facility] 04-26-2024 09:33-0500 Body mass index (BMI) [Ratio] 31.26 kg/m2 Sonny Adams MD Work Phone: [facility] 04-26-2024 09:33-0500 Body temperature 97.11 [degF] Sonny Adams MD Work Phone: [facility] 04-26-2024 09:33-0500 Body weight 82.6 kg Sonny Adams MD Work Phone: [facility] 04-26-2024 09:33-0500 Diastolic blood pressure 80 mm[Hg] Sonny Adams MD Work Phone: [facility] 04-26-2024 09:33-0500 Heart rate 80 /min Sonny Adams MD Work Phone: [facility] 04-26-2024 09:33-0500 Respiratory rate 19 /min Sonny Adams MD Work Phone: [facility] 04-26-2024 09:33-0500 SaO2% (BldA) [Mass fraction] 94 % Sonny Adams MD Work Phone: [facility] 04-26-2024 09:33-0500 Systolic blood pressure 160 mm[Hg] Sonny Adams MD Work Phone: [facility] 02-15-2024 13:00-0400 Diastolic blood pressure 86 mm[Hg] Efren Golias PT Work Phone: [facility] 02-15-2024 13:00-0400 Heart rate 69 /min Efren Golias PT Work Phone: [facility] 02-15-2024 13:00-0400 Systolic blood pressure 135 mm[Hg] Efren Golias PT Work Phone: [facility] 01-19-2024 08:42-0400 Body mass index (BMI) [Ratio] 30.73 kg/m2 Iglesia Messina MD Work Phone: [facility] 01-19-2024 08:42-0400 Body temperature 97.11 [degF] Iglesia Messina MD Work Phone: [facility] 01-19-2024 08:42-0400 Body weight 81.2 kg Iglesia Messina MD Work Phone: [facility] 01-19-2024 08:42-0400 Diastolic blood pressure 66 mm[Hg] Iglesia Messina MD Work Phone: [facility] 01-19-2024 08:42-0400 Heart rate 68 /min Iglesia Messina MD Work Phone: [facility] 01-19-2024 08:42-0400 Respiratory rate 18 /min Iglesia Messina MD Work Phone: [facility] 01-19-2024 08:42-0400 SaO2% (BldA) [Mass fraction] 96 % Iglesia Messina MD Work Phone: [facility] 01-19-2024 08:42-0400 Systolic blood pressure 122 mm[Hg] Iglesia Messina MD Work Phone: [facility] 07-20-2023 16:08-0400 Body height 162.6 cm Iglesia Messina MD Work Phone: [facility] 07-20-2023 16:08-0400 Body mass index (BMI) [Ratio] 32.1 kg/m2 Iglesia Messina MD Work Phone: [facility] 07-20-2023 16:08-0400 Body weight 84.82 kg Iglesia Messina MD Work Phone: [facility] 07-20-2023 16:08-0400 Diastolic blood pressure 76 mm[Hg] Iglesia Messina MD Work Phone: [facility] 07-20-2023 16:08-0400 Heart rate 80 /min Iglesia Messina MD Work Phone: [facility] 07-20-2023 16:08-0400 Respiratory rate 16 /min Iglesia Messina MD Work Phone: [facility] 07-20-2023 16:08-0400 Systolic blood pressure 128 mm[Hg] Iglesia Messina MD Work Phone: [facility] 01-04-2023 15:36-0400 Body height 162.6 cm Iglesia Messina MD Work Phone: [facility] 01-04-2023 15:36-0400 Body weight 80.74 kg Iglesia Messina MD Work Phone: [facility] 01-04-2023 15:36-0400 Diastolic blood pressure 80 mm[Hg] Iglesia Messina MD Work Phone: [facility] 01-04-2023 15:36-0400 Heart rate 70 /min Iglesia Messina MD Work Phone: [facility] 01-04-2023 15:36-0400 Respiratory rate 16 /min Iglesia Messina MD Work Phone: [facility] 01-04-2023 15:36-0400 Systolic blood pressure 124 mm[Hg] Iglesia Messina MD Work Phone: [facility] 08-25-2022 08:00-0400 Body weight 83.01 kg Tory Carmen HEALTHCARE OR MEDICAL.RECRUITING ADMINISTRATOR Work Phone: [facility] 08-25-2022 08:00-0400 Diastolic blood pressure 70 mm[Hg] Tory Carmen HEALTHCARE OR MEDICAL.RECRUITING ADMINISTRATOR Work Phone: [facility] 08-25-2022 08:00-0400 Heart rate 67 /min Tory Carmen HEALTHCARE OR MEDICAL.RECRUITING ADMINISTRATOR Work Phone: [facility] 08-25-2022 08:00-0400 SaO2% (BldA) [Mass fraction] 96 % Tory Carmen HEALTHCARE OR MEDICAL.RECRUITING ADMINISTRATOR Work Phone: [facility] 08-25-2022 08:00-0400 Systolic blood pressure 124 mm[Hg] Tory Carmen HEALTHCARE OR MEDICAL.RECRUITING ADMINISTRATOR Work Phone: [facility] 08-11-2022 07:20-0400 Diastolic blood pressure 96 mm[Hg] Tory Carmen HEALTHCARE OR MEDICAL.RECRUITING ADMINISTRATOR Work Phone: [facility] 08-11-2022 07:20-0400 Systolic blood pressure 164 mm[Hg] Tory Carmen HEALTHCARE OR MEDICAL.RECRUITING ADMINISTRATOR Work Phone: [facility] 08-11-2022 07:18-0400 Body weight 83.01 kg Tory Carmen HEALTHCARE OR MEDICAL.RECRUITING ADMINISTRATOR Work Phone: [facility] 08-11-2022 07:18-0400 Heart rate 76 /min Tory Carmen HEALTHCARE OR MEDICAL.RECRUITING ADMINISTRATOR Work Phone: [facility] 08-11-2022 07:18-0400 SaO2% (BldA) [Mass fraction] 95 % Tory Morales APRNRobertRECRUITING ADMINISTRATOR Work Phone: [facility] 08-10-2022 11:28-0400 Body temperature 97.3 [degF] Dia Athy PA-C Work Phone: [facility] 08-10-2022 11:28-0400 Body weight 83.19 kg Dia Athy PA-C Work Phone: [facility] 08-10-2022 11:28-0400 Diastolic blood pressure 90 mm[Hg] Dia Athy PA-C Work Phone: [facility] 08-10-2022 11:28-0400 Heart rate 77 /min Dia Athy PA-C Work Phone: [facility] 08-10-2022 11:28-0400 Respiratory rate 21 /min Dia Athy PA-C Work Phone: [facility] 08-10-2022 11:28-0400 SaO2% (BldA) [Mass fraction] 97 % Dia Athy PA-C Work Phone: [facility] 08-10-2022 11:28-0400 Systolic blood pressure 162 mm[Hg] Dia Athy PA-C Work Phone: [facility] 06-11-2022 08:53-0500 Diastolic blood pressure 57 mm[Hg] Artis Bradford MD Work Phone: [facility] 06-11-2022 08:53-0500 Heart rate 59 /min Artis Bradford MD Work Phone: [facility] 06-11-2022 08:53-0500 Respiratory rate 16 /min Artis Bradford MD Work Phone: [facility] 06-11-2022 08:53-0500 SaO2% (BldA) [Mass fraction] 91 % Artis Bradford MD Work Phone: [facility] 06-11-2022 08:53-0500 Systolic blood pressure 100 mm[Hg] Artis Bradford MD Work Phone: [facility] 06-11-2022 07:51-0500 Body temperature 98.29 [degF] Artis Bradford MD Work Phone: [facility] 05-29-2022 09:58-0500 Body height 162.6 cm Artis Bradford MD Work Phone: [facility] 05-29-2022 09:58-0500 Body temperature 96.01 [degF] Artis Bradford MD Work Phone: [facility] 05-29-2022 09:58-0500 Body weight 81.19 kg Artis Bradford MD Work Phone: [facility] 05-29-2022 09:58-0500 Diastolic blood pressure 78 mm[Hg] Artis Bradford MD Work Phone: [facility] 05-29-2022 09:58-0500 Heart rate 70 /min Artis Bradford MD Work Phone: [facility] 05-29-2022 09:58-0500 SaO2% (BldA) [Mass fraction] 99 % Artis Bradford MD Work Phone: [facility] 05-29-2022 09:58-0500 Systolic blood pressure 138 mm[Hg] Artis Bradford MD Work Phone: [facility] 05-26-2022 09:38-0500 Body temperature 96.6 [degF] Iglesia Messina MD Work Phone: [facility] 05-26-2022 09:38-0500 Body weight 80.29 kg Iglesia Messina MD Work Phone: [facility] 05-26-2022 09:38-0500 Diastolic blood pressure 70 mm[Hg] Iglesia Messina MD Work Phone: [facility] 05-26-2022 09:38-0500 Heart rate 68 /min Iglesia Messina MD Work Phone: [facility] 05-26-2022 09:38-0500 Respiratory rate 18 /min Iglesia Messina MD Work Phone: [facility] 05-26-2022 09:38-0500 SaO2% (BldA) [Mass fraction] 97 % Iglesia Messina MD Work Phone: [facility] 05-26-2022 09:38-0500 Systolic blood pressure 114 mm[Hg] Iglesia Messina MD Work Phone: [facility] Encounters Encounter Date Encounter Type Care Provider Facility Start: 10-19-2024 End: 10-19-2024 ambulatory [facility] Facility[facility] Start: 10-13-2024 End: 10-13-[address] Iglesia Messina MD Work Phone: -[facility] [place] Start: 10-13-2024 End: 10-13-[address] Nidia Albright MD [facility] [place] Work Phone: Start: 10-13-2024 End: 10-13-2024 ambulatory Nidia Albright Facility:[facility] Start: 09-19-2024 End: 09-19-2024 Office outpatient visit 25 minutes Ebony Hong [facility] Work Phone: [facility] [place] Comment on above: Urinary tract infect ion with hematuria, site unspecified (Primary Dx); Microscopic hematuria; Urinary, incontinence, stress female; Atrophic vaginitis; Fatigue, unspecified type; Constipation, unspecified constipation type; Seasonal allergic rhinitis, unspecified trigger; Iron deficiency anemia, unspecified iron deficiency anemia type; Gastroesophageal reflux disease without esophagitis; Acute cough; Hot flashes Start: 09-19-2024 End: 09-19-2024 ambulatory IGLESIA MESSINA Facility:[facility] Start: 09-15-2024 End: 09-15-2024 ambulatory IGLESIA MESSINA Facility:[facility] Start: 09-14-2024 End: 09-14-2024 Refill Iglesia Messina MD Work Phone: [facility] [place] Comment on above: Refill Request Start: 09-04-2024 End: 09-19-2024 Follow-up encounter Ebony Hong APRN.DEBUG TECHNICIAN Work Phone: [facility] [place] Start: 09-01-2024 End: 09-01-2024 Office outpatient visit 25 minutes Ebony Hong APRN.DEBUG TECHNICIAN Work Phone: [facility] [place] Comment on above: Urinary tract infect ion with hematuria, site unspecified (Primary Dx); Nausea; Diarrhea, unspecified type; SOB (shortness of breath); PND (paroxysmal nocturnal dyspnea); Controlled type 2 diabetes mellitus without complication, with long-term current use of insulin (HCC); Essential hypertension Start: 09-01-2024 End: 09-01-2024 ambulatory EBONY HONG Facility:[facility] Start: 08-27-2024 End: 08-28-2024 Emergency department patient visit Dr. Iglesia Messina MD Work Phone: -Emergency Department Work Phone: Start: 07-24-2024 End: 07-24-2024 ambulatory IGLESIA MESSINA Facility:[facility] Start: 07-24-2024 End: 07-24-2024 Office outpatient visit 25 minutes Iglesia Messina MD Work Phone: [facility] [place] Comment on above: Essential hypertensi on (Primary Dx); Controlled type 2 diabetes mellitus without complication, with long-term current use of insulin (HCC); Gastroesophageal reflux disease without esophagitis; Mixed hyperlipidemia; Vitamin D deficiency; Encounter for immunization Start: 07-14-2024 End: 07-14-2024 ambulatory IGLESIA MESSINA Facility:[facility] Start: 04-28-2024 End: 04-28-2024 ambulatory Ebony Hong HEALTHCARE OR MEDICAL.DEBUG TECHNICIAN Work Phone: [facility] [place] Comment on above: med side effect Start: 04-26-2024 End: 04-26-2024 Subsequent hospital visit by physician Uzma [facility] [place] Work Phone: Radiology Comment on above: Subacute cough [R05. 2] Start: 04-26-2024 End: 04-26-2024 ambulatory IGLESIA MESSINA Facility:[facility] Start: 04-26-2024 End: 04-26-2024 Office outpatient visit 15 minutes Sonny Adams MD Work Phone: [facility] Comment on above: Subacute cough (Prim keon Dx) Start: 04-26-2024 End: 04-26-2024 ambulatory Nidia Albright Facility:[facility] Start: 04-03-2024 End: 04-03-2024 ambulatory IGLESIA MESSINA Facility:[facility] Start: 04-03-2024 End: 04-03-2024 Subsequent hospital visit by physician [facility] Comment on above: Encounter for screen ing mammogram for breast cancer [Z12.31] Start: 02-22-2024 End: 02-22-2024 ambulatory Efren Macias PT Work Phone: [facility] Comment on above: Benign paroxysmal po sitional vertigo of right ear (Primary Dx) Start: 02-15-2024 End: 02-15-2024 ambulatory Efren Macias PT Work Phone: [facility] Comment on above: Benign paroxysmal po sitional vertigo, unspecified laterality Start: 01-24-2024 End: 01-25-2024 Refill Ebony Hong APRN.CNS Work Phone: [facility] [place] Comment on above: Refill Request Start: 01-19-2024 End: 01-19-2024 ambulatory IGLESIA MESSINA Facility:[facility] Start: 01-19-2024 End: 01-19-2024 Office outpatient visit 15 minutes Iglesia Messina MD Work Phone: [facility] [place] Comment on above: Controlled type 2 di abetes mellitus without complication, with long-term current use of insulin (HCC) (Primary Dx); Benign paroxysmal positional vertigo, unspecified laterality; Seasonal allergic rhinitis, unspecified trigger; Post-nasal drainage; Essential hypertension; Vitamin D deficiency; Mixed hyperlipidemia; Encounter for screening mammogram for breast cancer; Screening for depression; Encounter for screening examination for other mental health and behavioral disorders; Encounter for long-term current use of medication Start: 01-19-2024 End: 01-19-2024 ambulatory IGLESIA MESSINA Facility:[facility] Start: 01-14-2024 End: 01-14-2024 ambulatory IGLESIA MESSINA Facility:[facility] Start: 12-31-2023 End: 12-31-2023 Emergency department patient visit Jackie Pereira Facility:[facility] Start: 11-02-2023 End: 11-02-2023 ambulatory Nidia Albright Facility:[facility] Start: 10-16-2023 Refill Iglesia lange MD Work Phone: [facility] [place] Comment on above: Refill Request Start: 07-20-2023 End: 08-19-2023 Office outpatient visit 25 minutes Iglesia Messina MD Work Phone: [facility] [place] Comment on above: Controlled type 2 di abetes mellitus without complication, with long-term current use of insulin (HCC) (Primary Dx); Gastroesophageal reflux disease without esophagitis; Mixed hyperlipidemia; Vitamin D deficiency; Class 1 obesity due to excess calories with body mass index (BMI) of 32.0 to 32.9 in adult, unspecified whether serious comorbidity present; Encounter for long-term current use of medication; Encounter for immunization Start: 07-05-2023 ambulatory Iglesia lange MD Work Phone: [facility] [place] Comment on above: prescription Refill Request Start: 07-01-2023 Refill Ebony KING Work Phone: [facility] [place] Comment on above: Refill Request Start: 04-20-2023 End: 04-20-2023 ambulatory [facility] Work Phone: Start: 04-20-2023 End: 04-20-2023 Patient encounter procedure [facility] [place] Work Phone: Start: 03-08-2023 ambulatory Iglesia lange MD Work Phone: [facility] [place] Comment on above: mammogram Start: 01-04-2023 End: 01-04-2023 Office outpatient visit 25 minutes Iglesia Messina MD Work Phone: [facility] [place] Comment on above: Controlled type 2 di abetes mellitus without complication, with long-term current use of insulin (HCC) (Primary Dx); Diarrhea, unspecified type; Essential hypertension; Vitamin D deficiency; Mixed hyperlipidemia; Allergic rhinitis, unspecified seasonality, unspecified trigger Start: 10-22-2022 End: 10-22-2022 ambulatory [facility] Work Phone: Start: 10-22-2022 End: 10-22-2022 Patient encounter procedure [facility] Work Phone: Start: 08-25-2022 End: 08-25-2022 Patient encounter procedure Tory Morales APRN.RECRUITING ADMINISTRATOR Work Phone: [facility] [place] Comment on above: Neck pain (Primary D x); Post-nasal drainage; Seasonal allergic rhinitis, unspecified trigger; Controlled type 2 diabetes mellitus without complication, with long-term current use of insulin (HCC); Essential hypertension Start: 08-11-2022 End: 08-11-2022 Patient encounter procedure Tory Morales HEALTHCARE OR MEDICAL.RECRUITING ADMINISTRATOR Work Phone: [facility] [place] Comment on above: Neck pain (Primary D x) Start: 08-10-2022 Telephone encounter Dia Agustin-C Work Phone: [facility] Comment on above: Results Start: 08-10-2022 End: 08-10-2022 Subsequent hospital visit by physician [facility] Faustino Work Phone: Radiology Comment on above: Neck pain [M54.2] Start: 08-10-2022 End: 08-10-2022 Patient encounter procedure Dia Garcia PA-C Work Phone: [facility] Comment on above: Dizziness (Primary D x); Neck pain Start: 06-11-2022 End: 06-11-2022 Subsequent hospital visit by physician Artis Bradford MD Work Phone: Ambulatory Surgery Comment on above: Colon cancer screeni ng [Z12.11] Start: 06-10-2022 Refill Iglesia lange MD Work Phone: Internal Medicine [place] Comment on above: Refill Request Start: 05-29-2022 End: 05-29-2022 Patient encounter procedure Artis Bradford MD Work Phone: General Surgery Comment on above: Colon cancer screeni ng Start: 05-26-2022 End: 05-26-2022 Office outpatient visit 25 minutes Iglesia Messina MD Work Phone: Internal Medicine [place] Comment on above: Controlled type 2 di abetes mellitus without complication, with long-term current use of insulin (HCC) (Primary Dx); Essential hypertension; Gastroesophageal reflux disease without esophagitis; Mixed hyperlipidemia; Class 1 obesity due to excess calories with body mass index (BMI) of 31.0 to 31.9 in adult, unspecified whether serious comorbidity present; Vitamin D deficiency; Colon cancer screening; Encounter for immunization Start: 05-19-2022 End: 05-19-2022 ambulatory [facility] Work Phone: Start: 05-19-2022 End: 05-19-2022 Patient encounter procedure [facility] Start: 05-07-2022 End: 05-07-2022 ambulatory [facility] Work Phone: Start: 05-07-2022 End: 05-07-2022 [facility] [place] Start: 03-31-2022 Documentation procedure [facility] Start: 03-31-2022 Letter encounter Mammography Coordinator [facility] Department Start: 03-30-2022 End: 03-30-2022 Subsequent hospital visit by physician Screen Mammo [facility] Mammogram Comment on above: Encounter for screen ing mammogram for breast cancer [Z12.31] Start: 03-25-2022 ambulatory Iglesia lange MD Work Phone: Internal Medicine [place] Comment on above: Mamagram Start: 02-24-2022 ambulatory Iglesia lange MD Work Phone: Internal Medicine [place] Comment on above: glucose meter and te st strips Start: 12-23-2021 ambulatory Iglesia lange MD Work Phone: [facility] [place] Start: 12-23-2021 Patient encounter procedure Iglesia Messina MD Work Phone: Internal Medicine [place] Comment on above: missed appointment Start: 11-07-2021 End: 11-07-2021 Patient encounter procedure [facility] Start: 09-11-2021 Telephone encounter Iglesia navas MD Work Phone: Internal Medicine [place] Comment on above: Medication Request Start: 08-28-2021 ambulatory Iglesia lange MD Work Phone: Internal Medicine [place] Comment on above: prescription Start: 09-02-2020 End: 09-02-2020 Subsequent hospital visit by physician Xr [facility] Work Phone: Radiology Comment on above: Foot pain, left [M79 .672] Procedures Date Procedure Procedure Detail Performing Clinician Start: 09-19-2024 Urnls dip stick/tabl et rgnt auto w/o microscopy [facility] HEALTHCARE OR MEDICAL.DEBUG TECHNICIAN Work Phone: Start: 09-01-2024 Urnls dip stick/tabl et rgnt auto w/o microscopy [facility] HEALTHCARE OR MEDICAL.DEBUG TECHNICIAN Work Phone: Start: 08-27-2024 Urnls dip stick/tabl et reagent auto microscopy Dr. Iglesia Messina MD Work Phone: Start: 08-27-[address] Iglesia Messina MD Work Phone: Start: 08-27-2024 SARS-CoV-2, Influenz a & RSV (PCR) Dr. Iglesia Messina MD Work Phone: Start: 04-26-2024 Radiologic exam ches t 2 views Sonny Adams MD Work Phone: Start: 01-19-2024 Adult depression scr eening assessment Xr [facility] Work Phone: Start: 08-10-2022 Radex spine cervical 4 or 5 views Dia Garcia PA-C Work Phone: Start: 08-10-2022 Gluc bld gluc mntr d ev cleared fda spec home use [facility] Provider Start: 06-11-2022 Colonoscopy flx dx w /collj spec when pfrmd Artis Bradford MD Work Phone: Start: 06-11-2022 Colonoscopy Dia MEREDITHC Work Phone: Start: 03-30-2022 End: 03-30-2022 Mammography Tory Morales HEALTHCARE OR MEDICAL.CN P Work Phone: Start: 03-10-2021 Mammography Iglesia vasquez MD Work Phone: Start: 11-04-2020 Adult depression scr eening assessment Iglesia Messina MD Work Phone: Start: 09-02-2020 Radex foot complete minimum 3 views Miracle Elizondo HEALTHCARE OR MEDICAL.RECRUITING ADMINISTRATOR Work Phone: Start: 09-07-2011 Colonoscopy Iglesia vasquez MD Work Phone: Plan of Treatment Date Care Activity Detail Author Start: 06-11-2032 Colonoscopy COLONOSCOPY [facility] Start: 06-11-2032 COLORECTAL CANCER SCREENING COLORECTAL CANCER SCREENING [facility] Start: 06-11-2032 Screening for malign ant neoplasm of colon [facility] Start: 07-20-2028 Urine microalbumin profile [facility] Start: 07-25-2025 End: 07-25-2025 Patient encounter procedure 07/25/2025 9:00 AM EDT Office Visit Internal Medicine [facility] [address] [place] [id number] Iglesia Messina MD [address] [place] [id number] 6 month f/up Internal Medicine [facility] Comment on above: 6 month f/up Start: 07-24-2025 Annual PCP Team Medical Billing Service kate Disease Visit Annual PCP Team Chronic Disease Visit [facility] Start: 07-24-2025 BP Controlled (<130/80) BP Controlle d (<130/80) [facility] Start: 07-24-2025 RSV Vaccine (1 - Ris k 60-74 years 1-dose series) RSV Vaccine (1 - Risk 60-74 years 1-dose series) [facility] Comment on above: Postponed from 06/20 (Declined at this time) Start: 07-14-2025 Hepatitis B surface antibody level LDL Cholesterol [facility] Start: 04-03-2025 Screening for malign ant neoplasm of breast Mammogram Screening [facility] Start: 01-26-2025 End: 01-26-2025 Patient encounter procedure 01/26/2025 8:40 AM EDT Office Visit Internal Medicine [facility] [address] [place] [id number] Iglesia Messina MD [address] [place], [place] [address] 6 month follow up Internal Medicine [facility] Comment on above: 6 month follow up Start: 01-18-2025 Annual PCP Team Medical Billing Service kate Disease Visit Annual PCP Team Chronic Disease Visit [facility] Start: 01-18-2025 Anxiety Screening Anxiety Screening [facility] Start: 01-18-2025 BP Controlled (<130/80) BP Controlle d (<130/80) [facility] Start: 01-18-2025 Depression Screening Depression Scre ening [facility] Start: 01-18-2025 Diabetic foot examination Diabetic F oot Exam [facility] Start: 01-18-2025 Hepatitis B screening Urine Albumin:Creatinine Ratio [facility] Start: 01-14-2025 Hemoglobin A1c measurement HbA1C [facility] Start: 01-13-2025 Hepatitis B surface antibody level LDL Cholesterol [facility] Start: 12-24-2024 End: 03-25-2025 25-hydroxyvitamin D3 [Mass/volume] in Serum or Plasma VITAMIN D 25 HYDROXY Lab Routine Controlled type 2 diabetes mellitus without complication, with long-term current use of insulin (HCC) Essential hypertension Vitamin D deficiency Expected: 12/24/2024 (Approximate), Expires: 03/25/2025 [facility] Comment on above: Expected: 12/24/2024 (Approximate), Expires: 03/25/2025 Start: 12-24-2024 End: 03-25-2025 CBC panel - Blood by Automated count COMPLETE BLOOD COUNT Lab Routine Controlled type 2 diabetes mellitus without complication, with long-term current use of insulin (HCC) Essential hypertension Expected: 12/24/2024 (Approximate), Expires: 03/25/2025 [facility] Comment on above: Expected: 12/24/2024 (Approximate), Expires: 03/25/2025 Start: 12-24-2024 End: 03-25-2025 Comprehensive metabolic 2000 panel - Serum or Plasma COMPREHENSIVE METABOLIC PANEL Lab Routine Controlled type 2 diabetes mellitus without complication, with long-term current use of insulin (HCC) Essential hypertension Expected: 12/24/2024 (Approximate), Expires: 03/25/2025 [facility] Work Phone: Comment on above: Expected: 12/24/2024 (Approximate), Expires: 03/25/2025 Start: 12-24-2024 End: 03-25-2025 Hemoglobin A1c in Blood HEMOGLOBIN A1C Lab Routine Controlled type 2 diabetes mellitus without complication, with long-term current use of insulin (HCC) Expected: 12/24/2024 (Approximate), Expires: 03/25/2025 [facility] Comment on above: Expected: 12/24/2024 (Approximate), Expires: 03/25/2025 Start: 12-24-2024 End: 03-25-2025 Lipid 1996 panel - Serum or Plasma LIPID PANEL, FASTING Lab Routine Controlled type 2 diabetes mellitus without complication, with long-term current use of insulin (HCC) Mixed hyperlipidemia Essential hypertension Expected: 12/24/2024 (Approximate), Expires: 03/25/2025 [facility] Comment on above: Expected: 12/24/2024 (Approximate), Expires: 03/25/2025 Start: 12-24-2024 End: 03-25-2025 Magnesium [Mass/volume] in Serum or Plasma MAGNESIUM Lab Routine Controlled type 2 diabetes mellitus without complication, with long-term current use of insulin (HCC) Essential hypertension Expected: 12/24/2024 (Approximate), Expires: 03/25/2025 [facility] Comment on above: Expected: 12/24/2024 (Approximate), Expires: 03/25/2025 Start: 10-19-2024 End: 01-18-2025 Urinalysis complete panel - Urine URINALYSIS, WITH MICROSCOPIC Lab Routine Microscopic hematuria Expected: 10/19/2024 (Approximate), Expires: 01/18/2025 [facility] Work Phone: Comment on above: Expected: 10/19/2024 (Approximate), Expires: 01/18/2025 Start: 10-19-2024 End: 10-19-2024 ambulatory 10/19/2024 8:00 AM EDT Results Only [facility] [address] [place] [address] [facility] Start: 09-15-2024 End: 09-15-2024 Patient encounter procedure 09/15/2024 8:00 AM EDT Office Visit Cardiology [address] [place] [address] SOB (shortness of breath) [R06.02]; PND (paroxysmal nocturnal dyspnea) [R06.00]; Essential hypertension [I10] Cardiology Comment on above: SOB (shortness of br eath) [R06.02]; PND (paroxysmal nocturnal dyspnea) [R06.00]; Essential hypertension [I10] Start: 08-28-2024 [facility] Start: 08-22-2024 Covid-19 Vaccine ( season) Covid-19 Vaccine () [facility] Start: 07-28-2024 Glaucoma screening Dilated Retinal E xam [facility] Start: 07-24-2024 End: 07-24-2024 Patient encounter procedure 07/24/2024 9:00 AM EDT Office Visit Internal Medicine [facility] [address] [facility] [place] [address] Iglesia Messina MD [address] [place] [address] 6 mo follow up Internal Medicine [facility] Comment on above: 6 mo follow up Start: 07-19-2024 Annual PCP Team Medical Billing Service kate Disease Visit Annual PCP Team Chronic Disease Visit [facility] Start: 07-19-2024 BP Controlled (<130/80) BP Controlle d (<130/80) [facility] Start: 07-13-2024 Hemoglobin A1c measurement HbA1C [facility] Start: 07-08-2024 Hepatitis B surface antibody level LDL Cholesterol [facility] Start: 06-18-2024 End: 09-17-2024 25-hydroxyvitamin D3 [Mass/volume] in Serum or Plasma VITAMIN D 25 HYDROXY Lab Routine Vitamin D deficiency Encounter for long-term current use of medication Expected: 06/18/2024 (Approximate), Expires: 09/17/2024 [facility] Comment on above: Expected: 06/18/2024 (Approximate), Expires: 09/17/2024 Start: 06-18-2024 End: 09-17-2024 CBC panel - Blood by Automated count COMPLETE BLOOD COUNT Lab Routine Controlled type 2 diabetes mellitus without complication, with long-term current use of insulin (HCC) Essential hypertension Encounter for long-term current use of medication Expected: 06/18/2024 (Approximate), Expires: 09/17/2024 [facility] Comment on above: Expected: 06/18/2024 (Approximate), Expires: 09/17/2024 Start: 06-18-2024 End: 09-17-2024 Comprehensive metabolic 2000 panel - Serum or Plasma COMPREHENSIVE METABOLIC PANEL Lab Routine Controlled type 2 diabetes mellitus without complication, with long-term current use of insulin (HCC) Essential hypertension Encounter for long-term current use of medication Expected: 06/18/2024 (Approximate), Expires: 09/17/2024 [facility] Comment on above: Expected: 06/18/2024 (Approximate), Expires: 09/17/2024 Start: 06-18-2024 End: 09-17-2024 Hemoglobin A1c in Blood HEMOGLOBIN A1C Lab Routine Controlled type 2 diabetes mellitus without complication, with long-term current use of insulin (HCC) Encounter for long-term current use of medication Expected: 06/18/2024 (Approximate), Expires: 09/17/2024 [facility] Comment on above: Expected: 06/18/2024 (Approximate), Expires: 09/17/2024 Start: 06-18-2024 End: 09-17-2024 Lipid 1996 panel - Serum or Plasma LIPID PANEL BASIC Lab Routine Controlled type 2 diabetes mellitus without complication, with long-term current use of insulin (HCC) Essential hypertension Mixed hyperlipidemia Encounter for long-term current use of medication Expected: 06/18/2024 (Approximate), Expires: 09/17/2024 [facility] Comment on above: Expected: 06/18/2024 (Approximate), Expires: 09/17/2024 Start: 06-18-2024 End: 09-17-2024 Magnesium [Mass/volume] in Serum or Plasma MAGNESIUM Lab Routine Encounter for long-term current use of medication Expected: 06/18/2024 (Approximate), Expires: 09/17/2024 [facility] Comment on above: Expected: 06/18/2024 (Approximate), Expires: 09/17/2024 Start: 04-19-2024 Advance Directive Discussion Advance Directive Discussion [facility] Start: 04-03-2024 End: 04-03-2024 Patient encounter procedure 04/03/2024 7:50 AM EST Appointment Mammogram [address] [place] [id number] Mammogram Start: 03-31-2024 Screening for malign ant neoplasm of breast Mammogram Screening [facility] Start: 03-07-2024 End: 03-07-2024 ambulatory 03/07/2024 9:00 AM EST OT/PT/Speech Visit [facility] [address] [place] [id number] Phuong Samayoa, PT Benign paroxysmal positional vertigo, unspecified laterality [H81.10 (ICD-10-CM)] [facility] Comment on above: Benign paroxysmal po sitional vertigo, unspecified laterality [H81.10 (ICD-10-CM)] Start: 02-22-2024 End: 02-22-2024 ambulatory 02/22/2024 11:30 AM EST OT/PT/Speech Visit [facility] [address] [place], [place] [id number] Efren Macias, PT [address] [place] [address] H81.10 (ICD-10-CM) - Benign paroxysmal positional vertigo, unspecified laterality [facility] Comment on above: H81.10 (ICD-10-CM) - Benign paroxysmal positional vertigo, unspecified laterality Start: 02-15-2024 End: 02-15-2024 ambulatory 02/15/2024 1:15 PM EDT OT/PT/Speech Visit [facility] [address] [place] [address] GolEfren mary, PT [address] [place] [address] Vertigo exercises [facility] Comment on above: Vertigo exercises Start: 02-01-2024 Covid-19 Vaccine () Covid-19 Vaccine () [facility] Comment on above: Postponed from 12/18 (Declined at this time) Start: 02-01-2024 Influenza vaccination Influenza Vacc ine (#1) [facility] Comment on above: Postponed from 12/18 (Declined at this time) Start: 01-19-2024 End: 01-19-2024 Patient encounter procedure 01/19/2024 8:40 AM EDT Office Visit Internal Medicine [place] [address] [place] [address] Iglesia Messina MD [address] [place] [address] 6 mo follow up Internal Medicine [place] Comment on above: 6 mo follow up Start: 01-09-2024 Hemoglobin A1c measurement HbA1C [facility] Start: 01-05-2024 Annual PCP Team Medical Billing Service kate Disease Visit Annual PCP Team Chronic Disease Visit [facility] Start: 01-01-2024 Hepatitis B screening Urine Albumin:Creatinine Ratio [facility] Start: 01-01-2024 Hepatitis B surface antibody level LDL Cholesterol [facility] Start: 12-20-2023 End: 03-20-2024 25-hydroxyvitamin D3 [Mass/volume] in Serum or Plasma VITAMIN D 25 HYDROXY Lab Routine Encounter for long-term current use of medication Vitamin D deficiency Expected: 12/20/2023 (Approximate), Expires: 03/20/2024 [facility] Comment on above: Expected: 12/20/2023 (Approximate), Expires: 03/20/2024 Start: 12-20-2023 End: 03-20-2024 CBC panel - Blood by Automated count CBC Lab Routine Encounter for long-term current use of medication Expected: 12/20/2023 (Approximate), Expires: 03/20/2024 [facility] Comment on above: Expected: 12/20/2023 (Approximate), Expires: 03/20/2024 Start: 12-20-2023 End: 03-20-2024 Comprehensive metabolic 2000 panel - Serum or Plasma COMP METABOLIC PANEL Lab Routine Controlled type 2 diabetes mellitus without complication, with long-term current use of insulin (HCC) Encounter for long-term current use of medication Expected: 12/20/2023 (Approximate), Expires: 03/20/2024 [facility] Work Phone: Comment on above: Expected: 12/20/2023 (Approximate), Expires: 03/20/2024 Start: 12-20-2023 End: 03-20-2024 Hemoglobin A1c in Blood HGB A1C Lab Routine Controlled type 2 diabetes mellitus without complication, with long-term current use of insulin (HCC) Encounter for long-term current use of medication Expected: 12/20/2023 (Approximate), Expires: 03/20/2024 [facility] Comment on above: Expected: 12/20/2023 (Approximate), Expires: 03/20/2024 Start: 12-20-2023 End: 03-20-2024 Lipid 1996 panel - Serum or Plasma LIPID PANEL BASIC Lab Routine Mixed hyperlipidemia Encounter for long-term current use of medication Expected: 12/20/2023 (Approximate), Expires: 03/20/2024 [facility] Comment on above: Expected: 12/20/2023 (Approximate), Expires: 03/20/2024 Start: 12-20-2023 End: 03-20-2024 Magnesium [Mass/volume] in Serum or Plasma MAGNESIUM BLD Lab Routine Encounter for long-term current use of medication Expected: 12/20/2023 (Approximate), Expires: 03/20/2024 [facility] Comment on above: Expected: 12/20/2023 (Approximate), Expires: 03/20/2024 Start: 12-19-2023 Covid-19 Vaccine ( season) Covid-19 Vaccine () [facility] Start: 12-19-2023 Influenza vaccination Influenza Vacc ine (#1) [facility] Start: 08-26-2023 ANNUAL PCP TEAM COLLAR BASTER JUMPBASTING KATE DISEASE VISIT ANNUAL PCP TEAM CHRONIC DISEASE VISIT [facility] Start: 08-26-2023 BP CONTROLLED (<130/80) BP CONTROLLE D (<130/80) [facility] Start: 08-12-2023 ANNUAL PCP TEAM COLLAR BASTER JUMPBASTING KATE DISEASE VISIT ANNUAL PCP TEAM CHRONIC DISEASE VISIT [facility] Start: 07-15-2023 Covid-19 Vaccine () Covid-19 Vaccine () [facility] Start: 07-05-2023 End: 09-04-2023 25-hydroxyvitamin D3 [Mass/volume] in Serum or Plasma VITAMIN D 25 HYDROXY Lab Routine Vitamin D deficiency Expected: 07/05/2023 (Approximate), Expires: 09/04/2023 [facility] Work Phone: Comment on above: Expected: 07/05/2023 (Approximate), Expires: 09/04/2023 Start: 07-05-2023 End: 09-04-2023 CBC panel - Blood by Automated count CBC Lab Routine Essential hypertension Expected: 07/05/2023 (Approximate), Expires: 09/04/2023 [facility] Work Phone: Comment on above: Expected: 07/05/2023 (Approximate), Expires: 09/04/2023 Start: 07-05-2023 End: 09-04-2023 Comprehensive metabolic 2000 panel - Serum or Plasma COMP METABOLIC PANEL Lab Routine Controlled type 2 diabetes mellitus without complication, with long-term current use of insulin (HCC) Essential hypertension Expected: 07/05/2023 (Approximate), Expires: 09/04/2023 [facility] Work Phone: Comment on above: Expected: 07/05/2023 (Approximate), Expires: 09/04/2023 Start: 07-05-2023 End: 09-04-2023 Hemoglobin A1c in Blood HGB A1C Lab Routine Controlled type 2 diabetes mellitus without complication, with long-term current use of insulin (HCC) Expected: 07/05/2023 (Approximate), Expires: 09/04/2023 [facility] Work Phone: Comment on above: Expected: 07/05/2023 (Approximate), Expires: 09/04/2023 Start: 07-05-2023 End: 09-04-2023 Lipid 1996 panel - Serum or Plasma LIPID PANEL BASIC Lab Routine Mixed hyperlipidemia Expected: 07/05/2023 (Approximate), Expires: 09/04/2023 [facility] Work Phone: Comment on above: Expected: 07/05/2023 (Approximate), Expires: 09/04/2023 Start: 07-01-2023 Hemoglobin A1c measurement HbA1C [facility] Start: 07-01-2023 Hemoglobin A1c/Hemoglobin.total in Blood HbA1C [facility] Start: 05-26-2023 ANNUAL PCP TEAM COLLAR BASTER JUMPBASTING KATE DISEASE VISIT ANNUAL PCP TEAM CHRONIC DISEASE VISIT [facility] Start: 05-26-2023 BP CONTROLLED (<130/80) BP CONTROLLE D (<130/80) [facility] Start: 05-26-2023 SHINGRIX VACCINE (2 of 3) QURESHI GRIX VACCINE (2 of 3) [facility] Comment on above: Postponed from 08/19 (Declined at this time) Start: 05-19-2023 Hepatitis B surface antibody level LDL CHOLESTEROL [facility] Start: 04-19-2023 Advance Directive Discussion Advance Directive Discussion [facility] Start: 04-19-2023 Behavioral Health Screening Behavioral Health Screening [facility] Start: 04-19-2023 Depression Assessment Depression Ass essment [facility] Start: 04-17-2023 Glaucoma screening Dilated Retinal E xam [facility] Start: 04-17-2023 Hepatitis C antibody , confirmatory test DILATED RETINAL EXAM [facility] Start: 03-30-2023 Mammography [facility] Start: 12-18-2022 Covid-19 Vaccine ( season) Covid-19 Vaccine () [facility] Start: 12-18-2022 Influenza vaccination Influenza Vacc ine (#1) [facility] Start: 11-23-2022 End: 01-23-2023 25-hydroxyvitamin D3 [Mass/volume] in Serum or Plasma VITAMIN D 25 HYDROXY Lab Routine Vitamin D deficiency Expected: 11/23/2022 (Approximate), Expires: 01/23/2023 [facility] Work Phone: Comment on above: Expected: 11/23/2022 (Approximate), Expires: 01/23/2023 Start: 11-23-2022 End: 01-23-2023 ALBUMIN/CREAT RATIO RND UR ALBUMIN/CREAT RATIO RND UR Lab Routine Controlled type 2 diabetes mellitus without complication, with long-term current use of insulin (HCC) Expected: 11/23/2022 (Approximate), Expires: 01/23/2023 [facility] Work Phone: Comment on above: Expected: 11/23/2022 (Approximate), Expires: 01/23/2023 Start: 11-23-2022 End: 01-23-2023 CBC panel - Blood by Automated count CBC Lab Routine Essential hypertension Expected: 11/23/2022 (Approximate), Expires: 01/23/2023 [facility] Work Phone: Comment on above: Expected: 11/23/2022 (Approximate), Expires: 01/23/2023 Start: 11-23-2022 End: 01-23-2023 Comprehensive metabolic 2000 panel - Serum or Plasma COMP METABOLIC PANEL Lab Routine Controlled type 2 diabetes mellitus without complication, with long-term current use of insulin (HCC) Essential hypertension Expected: 11/23/2022 (Approximate), Expires: 01/23/2023 [facility] Work Phone: Comment on above: Expected: 11/23/2022 (Approximate), Expires: 01/23/2023 Start: 11-23-2022 End: 01-23-2023 Hemoglobin A1c in Blood HGB A1C Lab Routine Controlled type 2 diabetes mellitus without complication, with long-term current use of insulin (HCC) Expected: 11/23/2022 (Approximate), Expires: 01/23/2023 [facility] Work Phone: Comment on above: Expected: 11/23/2022 (Approximate), Expires: 01/23/2023 Start: 11-23-2022 End: 01-23-2023 Lipid 1996 panel - Serum or Plasma LIPID PANEL BASIC Lab Routine Mixed hyperlipidemia Expected: 11/23/2022 (Approximate), Expires: 01/23/2023 [facility] Work Phone: Comment on above: Expected: 11/23/2022 (Approximate), Expires: 01/23/2023 Start: 11-16-2022 Hemoglobin A1c/Hemoglobin.total in Blood HBA1C [facility] Start: 07-01-2022 Covid-19 Vaccine (5 - Pfizer series) Covid-19 Vaccine (5 - Pfizer series) [facility] Start: 05-26-2022 3 comp foot exam completed DIABETIC FOOT EXAM [facility] Start: 05-26-2022 ANNUAL PCP TEAM COLLAR BASTER JUMPBASTING KATE DISEASE VISIT ANNUAL PCP TEAM CHRONIC DISEASE VISIT [facility] Start: 05-26-2022 BP CONTROLLED (<130/80) BP CONTROLLE D (<130/80) [facility] Start: 05-26-2022 Diabetic foot examination Diabetic F oot Exam [facility] Start: 05-26-2022 Hepatitis B screening URINE ALBUMIN:CREATININE RATIO [facility] Start: 05-26-2022 Hepatitis B surface antibody level LDL CHOLESTEROL [facility] Start: 05-26-2022 PNEUMOCOCCAL: 65+ (3 - PCV) PNEUMOCOCCAL: 65+ (3 - PCV) [facility] Start: 05-19-2022 Procedure [facility] Start: 03-10-2022 Mammography MAMMOGRAM [facility] Start: 12-18-2021 Influenza vaccination INFLUENZA (#1) [facility] Start: 11-23-2021 Hemoglobin A1c/Hemoglobin.total in Blood HBA1C [facility] Start: 11-06-2021 PNEUMOCOCCAL: 65+ (1 - PCV) PNEUMOCOCCAL: 65+ (1 - PCV) [facility] Comment on above: Postponed from 06/20 (Declined at this time) Start: 11-06-2021 SHINGRIX VACCINE (1 of 2) QURESHI GRIX VACCINE (1 of 2) [facility] Comment on above: Postponed from 08/19 (Declined at this time) Start: 11-06-2021 SHINGRIX VACCINE (2 of 3) QURESHI GRIX VACCINE (2 of 3) [facility] Comment on above: Postponed from 08/19 (Declined at this time) Start: 11-04-2021 Adult depression scr eening assessment DEPRESSION SCREENING [facility] Start: 09-06-2021 Colonoscopy COLONOSCOPY [facility] Start: 09-06-2021 COLORECTAL CANCER SCREENING COLORECTAL CANCER SCREENING [facility] Start: 08-30-2021 Hepatitis C antibody , confirmatory test DILATED RETINAL EXAM [facility] Start: 06-26-2021 COVID-19 VACCINE (4 - Booster for Pfizer series) COVID-19 VACCINE (4 - Booster for Pfizer series) [facility] Start: 05-23-2021 COVID-19 VACCINE (4 - Booster for Pfizer series) COVID-19 VACCINE (4 - Booster for Pfizer series) [facility] Start: 04-19-2021 ADVANCE DIRECTIVE DISCUSSION ADVANCE DIRECTIVE DISCUSSION [facility] Start: 04-19-2021 DEPRESSION ASSESSMENT DEPRESSION ASS ESSMENT [facility] Start: 02-25-2021 BP CONTROLLED (<130/80) BP CONTROLLE D (<130/80) [facility] Start: 08-19-2016 SHINGRIX VACCINE (1 of 2) QURESHI GRIX VACCINE (1 of 2) [facility] Start: 08-19-2016 Shingrix Vaccine (2 of 3) Qureshi grix Vaccine (2 of 3) [facility] Start: 2014 Hepatitis B Vaccine (1 of 3 - Risk 3-dose series) Hepatitis B Vaccine (1 of 3 - Risk 3-dose series) [facility] Start: 2014 RSV Vaccine (1 - 1-d ose 60+ series) RSV Vaccine (1 - 1-dose 60+ series) [facility] Start: 2014 RSV Vaccine (1 - Ris k 60-74 years 1-dose series) RSV Vaccine (1 - Risk 60-74 years 1-dose series) [facility] Start: 06-21-1999 COLOGUARD (FIT-DNA) COLOGUARD (FIT-D NA) [facility] Start: 06-21-[address] COLONOGRAPHY [facility] Start: 06-21-1999 FECAL OCCULT BLOOD FECAL OCCULT BLOO D [facility] Start: 06-21-1999 Screening for malign ant neoplasm of colon [facility] Start: 06-21-1999 SIGMOIDOSCOPY SIGMOIDOSCOPY [facility] Start: 1972 Anxiety Screening Anxiety Screening [facility] Start: 1972 Depression Screening Depression Scre ening [facility] Bacteria identified in Urine by Culture BACTERIAL CULTURE, URINE Microbiology Routine Urinary tract infection with hematuria, site unspecified 09/01/2024 12:47 PM EDT [facility] Bacteria identified in Urine by Culture BACTERIAL CULTURE, URINE Microbiology Routine Urinary tract infection with hematuria, site unspecified 09/19/2024 9:43 AM EDT [facility] End: 05-29-2023 COLONOSCOPY DIAGNOSTIC COLONOSCOPY DIAGNOSTIC Endoscopy Routine Colon cancer screening 1 Occurrences starting 05/29/2022 until 05/29/2023 [facility] Work Phone: Comment on above: 1 Occurrences starti ng 05/29/2022 until 05/29/2023 End: 09-01-2025 Echocardiography ECHO Cardiology Routine SOB (shortness of breath) PND (paroxysmal nocturnal dyspnea) Essential hypertension 1 Occurrences starting 09/01/2024 until 09/01/2025 [facility] Work Phone: Comment on above: 1 Occurrences starti ng 09/01/2024 until 09/01/2025 Glucose [Mass/volume ] in Serum or Plasma GLUCOSE, BLOOD (POC) Lab Routine Dizziness Ordered: 08/10/2022 [facility] Work Phone: Comment on above: Ordered: 08/10/2022 End: 04-26-2023 DEDE SCREENING DEDE SCREENING Radiology Routine Encounter for screening mammogram for breast cancer 1 Occurrences starting 03/27/2022 until 04/26/2023 [facility] Work Phone: Comment on above: 1 Occurrences starti ng 03/27/2022 until 04/26/2023 End: 04-06-2024 DEDE SCREENING DEDE SCREENING Radiology Routine Screening mammogram for breast cancer 1 Occurrences starting 03/15/2023 until 04/06/2024 [facility] Work Phone: Comment on above: 1 Occurrences starti ng 03/15/2023 until 04/06/2024 End: 02-17-2025 MG Breast Screening DEDE SCREENING Radiology Routine Encounter for screening mammogram for breast cancer 1 Occurrences starting 01/19/2024 until 02/17/2025 [facility] Work Phone: Comment on above: 1 Occurrences starti ng 01/19/2024 until 02/17/2025 MG Breast Screening DEDE SCREENIN G Radiology Routine Encounter for screening mammogram for breast cancer 04/03/2024 8:23 AM EST [facility] Work Phone: Patient Education [facility]Is [facility] Work Phone: Patient referral [facility] Work Phone: [facility] Immunizations Immunization Date Immunization Notes Care Provider Fa kofi 03-16-2023 influenza virus vacc ine, unspecified formulation Iglesia Messina MD Work Phone: [facility] 05-26-2022 pneumococcal (PCV20) vaccine, 20 valent (PREVNAR 20) Iglesia Messina MD Work Phone: [facility] 05-26-2022 pneumococcal Conjuga te, unspecified formulation Iglesia Messina MD Work Phone: [facility] Work Phone: 03-03-2022 influenza (aIIV4) vaccine, age 65+ yr, quadrivalent, PF (FLUAD QUADRIVALENT) Iglesia Messina MD Work Phone: [facility] 03-03-2022 influenza virus vacc ine, unspecified formulation Iglesia Messina MD Work Phone: [facility] 05-26-2021 pneumococcal polysaccharide vaccine, 23 valent Iglesia Messina MD Work Phone: [facility] 03-28-2021 COVID-19 original vaccine, age 12+ yr, monovalent (PFIZER-BIONTNumote - PURPLE TOP) Tory Morales APRN.CNP Work Phone: [facility] Work Phone: 02-17-2021 influenza, high dose seasonal, preservative-free Iglesia Messina MD Work Phone: [facility] 02-17-2021 influenza, high-dose , quadrivalent vaccine (FLUZONE HIGH DOSE QUADRIVALENT) Iglesia Messina MD Work Phone: [facility] 07-04-2020 COVID-19 vaccine, ag e 12+ yr (PFIZER-BIONTECH - PURPLE TOP) Iglesia Messina MD Work Phone: [facility] 06-13-2020 COVID-19 vaccine, ag e 12+ yr (PFIZER-BIONTECH - PURPLE TOP) Iglesia Messina MD Work Phone: [facility] 02-26-2020 influenza, high-dose , quadrivalent vaccine (FLUZONE HIGH DOSE QUADRIVALENT) Iglesia Messina MD Work Phone: [facility] Work Phone: 02-26-2020 zoster vaccine, recombinant, adjuvanted, (SHINGRIX, PF,) 50 mcg/0.5 mL injection Xr [place] Work Phone: [facility] 02-27-2019 influenza, injectabl e, quadrivalent, contains preservative Iglesia Messina MD Work Phone: [facility] Work Phone: 07-20-2018 tetanus toxoid, redu aziza diphtheria toxoid, and acellular pertussis vaccine, adsorbed Iglesia Messina MD Work Phone: [facility] 02-19-2018 influenza, injectabl e, quadrivalent, contains preservative Iglesia Messina MD Work Phone: [facility] 02-20-2017 influenza, high dose seasonal, preservative-free Iglesia Messina MD Work Phone: [facility] Work Phone: 06-24-2016 zoster vaccine, live Iglesia severino MD Work Phone: [facility] 01-17-2016 influenza, injectabl e, quadrivalent, contains preservative Iglesia Messina MD Work Phone: [facility] 03-04-2015 influenza, injectabl e, quadrivalent, contains preservative Iglesia Messina MD Work Phone: [facility] 02-12-2014 influenza, seasonal, injectable Iglesia Messina MD Work Phone: [facility] 02-03-2013 influenza virus vacc ine, unspecified formulation Iglesia Messina MD Work Phone: [facility] 01-11-2012 influenza virus vacc ine, unspecified formulation Iglesia Messina MD Work Phone: [facility] Work Phone: 01-11-2012 pneumococcal polysaccharide vaccine, 23 valent Iglesia Messina MD Work Phone: [facility] Work Phone: 01-11-2012 tetanus toxoid, redu aziza diphtheria toxoid, and acellular pertussis vaccine, adsorbed Iglesia Messina MD Work Phone: [facility] Work Phone: 03-09-2011 influenza virus vacc ine, unspecified formulation Iglesia Messina MD Work Phone: [facility] 01-28-2010 influenza virus vacc ine, unspecified formulation Iglesia Messina MD Work Phone: [facility] Payers Date Payer Category Payer Self-pay [id number] 2021 Medicare [employer] [place] [id number] 2021-Present [phone] [address] [place] [address] [facility] [id number] 2021 [place] [id number] 2021 Medicare [id number] 2020 Unknown [employer] E PPO [id number] 2020-[address]21 [address] [place] [address] PPO [id number] 2019 Medicare [id number] 2016 Unknown [id number] Medicare [id number] Unknown [id number] Unknown [id number] Unknown [id number] Unknown [id number] Unknown [id number] Social History Date Type Detail Facility Start: 01-22-2014 End: 08-27-2024 Tobacco smoking status NHIS Never smoked tobacco [facility] Work Phone: Start: 11-06-2020 End: 09-19-2024 Alcohol intake Current non-drinker of alcohol (finding) [facility] Start: 11-04-2020 End: 05-23-2022 History SDOH Alcohol Frequency 2 [facility] Start: 11-04-2020 End: 05-23-2022 History SDOH Alcohol Std Drinks 1 [facility] Start: 11-04-2020 End: 05-23-2022 History SDOH Social Connections Phone 3 [facility] Start: 11-04-2020 History SDOH Physica l Activity DPW 0 [facility] Start: 11-04-2020 History SDOH Financial 5 [facility] Start: 09-19-2019 Education 17 [facility] Start: 1955 Sex Assigned At Not on file [facility] Start: 12-04-2020 End: 12-04-2020 Tobacco smoking status NHIS Unknown if ever smoked [facility] Start: 1955 Sex Assigned At Female [facility] Start: 01-22-2014 End: 05-29-2022 Tobacco use and exposure Smokeless tobacco non-user [facility] Start: 05-23-2022 History SDOH Social Connections Get Together 98 [facility] Start: 05-23-2022 End: 02-15-2024 [facility] Start: 05-23-2022 End: 02-15-2024 Social connection and isolation panel [facility] How often do you get together with friends or relatives? Patient refused [facility] Do you belong to any clubs or organizations such as advent groups, unions, fraternal or athletic groups, or school groups? No [facility] Are you now , , , , never or living with a partner? [facility] How often to you hav e a drink containing alcohol? Monthly or less [facility] How many standard dr inks containing alcohol do you have on a typical day? 1 or 2 [facility] How often do you hav e 6 or more drinks on 1 occasion? Never [facility] Do you feel stress - tense, restless, nervous, or anxious, or unable to sleep at night because your mind is troubled all the time - these days [OSQ] Not at all [facility] (I/We) worried sandra er (my/our) food would run out before (I/we) got money to buy more. Never true [facility] Start: 08-03-2020 End: 09-02-2020 Exposure to SARS-CoV-2 (event) Not sure [facility] Medical Equipment Procedure Code Equipment Code Equipment Original Text Equipment Identifier Dates [id number], [id number], [id number], [id number], [id number], [id number], [id number], [id number], [id number], [id number], [id number] Start: 09-01-2018 End: 07-24-2024 Comment on above: Test blood sugar(s) 2 times daily. Dx: Type 2 DM - Controlled E11.9 Insulin: Yes Use one needle per d ose. 1 per day. Diagnosis: 250.02 Use as instructed. D x: E11.9, Z79.4 . Insulin: Yes. Test blood sugar(s) 2 times daily or as instructed. Dx: Type 2 DM - Controlled E11.9 Insulin: Yes Functional Status Date Assessment Result Facility 10-17-2014 Are you deaf, or do you have serious difficulty hearing No 10/17/2014 10:26 AM Saba Erazo MA No [facility] 10-17-2014 Are you blind, or do you have serious difficulty seeing, even when wearing glasses No 10/17/2014 10:26 AM Saba Erazo MA No [facility] 10-17-2014 Do you have serious difficulty walking or climbing stairs No 10/17/2014 10:26 AM Saba Erazo MA No [facility] 10-17-2014 Do you have difficul ty dressing or bathing No 10/17/2014 10:26 AM Saba Erazo MA [facility] 10-17-2014 Because of a physica l, mental, or emotional condition, do you have difficulty doing errands alone such as visiting a physician's office or shopping No 10/17/2014 10:26 AM Saba Erazo MA No [facility] Mental Status Date Assessment Result Facility 08-27-2024 Cognitive function Level Of Cons ciousness Awake;Alert;Appropriate;Fol lows Commands [facility] Work Phone: 10-17-2014 Because of a physica l, mental, or emotional condition, do you have serious difficulty concentrating, remembering, or making decisions No 10/17/2014 10:26 AM Saba Erazo MA No [facility] Clinical Notes 01-22-2014 to 09-19-2024 Telephone Encounter - Ebony Hong APRN.CNS - 09/19/2024 3:16 PM EDTTelephone Encounter - Ebony Hong APRN.CNS - 09/19/2024 3:16 PM EDTPatient InstructionsPatient InstructionsPatient Instructions Note Date & Type Note Facility 09-19-2024 Telephone encounter Note OV today [facility] 09-19-2024 Miscellaneous Notes OV today Echocardiogram shows normal right and left ventricular size and function, no significant valvular abnormalities. No growth documented in this encounter [facility] 09-19-2024 Instructions Ebony Hong APRN.CNS - 09/19/2024 10:13 AM EDT - Start taking omeprazole (Prilosec) once daily to help with heartburn and upper stomach discomfort. If you are already taking this once daily then increase to twice daily dosing for two weeks to see if this helps with abdominal discomfort - Resume using your Estrace vaginal cream: apply a pea-sized amount externally every other day (or a very small amount daily if that s easier to remember). - Use your azelastine nasal spray as directed for congestion and sneezing; if symptoms persist, add an jbmh-gbi-xyxiwps oral antihistamine such as loratidine. - Continue using your inhaler for cough or wheezing as needed. - If you do not return to your usual daily bowel movements, take a mild grgj-dyo-zviurvn laxative (for example, Miralax) to reestablish regularity. - If nausea limits your eating or drinking, use your anti-nausea medication as needed to help maintain your appetite and hydration. - Drink plenty of fluids (water and zero-sugar sports drinks) and rest as much as possible to support your recovery. - Repeat a urinalysis in about one month to confirm the blood in your urine has cleared; if it persists, you may need a urology referral. - Schedule a return visit if your abdominal discomfort, urinary symptoms, cough, or hot flashes worsen or do not improve. documented in this encounter [facility] 09-19-2024 History of Presen t illness Narrative Subjective Patient ID: Rachel is a 69 year old female who presents for No chief complaint on file.. HPI Rachel is a 69-year-old female with a history of diabetes and hypertension, [facility], presenting for evaluation of persistent UTI symptoms and new onset diarrhea. She was seen in office September 01, 2024, having had an ER visit. She reported UTI symptoms persisting despite treatment from the ER. Medication was changed. Noted nausea and diarrhea, concern for possible norovirus. she was provided with symptomatic treatments. She was advised to follow-up in 3 to 7 days if not feeling improved. Returns today with report of fatigue, decreased appetite. Fatigue and Anorexia: - Persistent fatigue and anorexia following recent illness. - [place] slightly better while on antibiotics but symptoms returned post-treatment. - Reports early satiety without nausea. - Attempting to maintain hydration with water and Gatorade Zero. Abdominal Discomfort: - Recent episode of lower abdominal discomfort, described as feeling bloated and tender. - Symptoms improved today after a bowel movement. - Usual bowel pattern includes daily diarrhea, attributed to medication. - Recent constipation for 3-4 days, followed by two bowel movements today: one soft and one liquid. - Denies hematochezia or melena; stools are black due to iron supplementation. - No dysuria, urgency, or frequency reported. Respiratory Symptoms: - Recent onset of cold symptoms x3-4 days, including rhinorrhea, nasal congestion, cough, and sneezing. - Used inhaler last night with perceived benefit. - History of allergies, usually managed with azelastine nasal spray; has not been using it recently. Menopausal Symptoms: - Experiencing hot flashes, similar to those during menopause, which occurred a long time ago. - Inquires about the need for estrogen therapy. - Has been using Estrace cream inconsistently. No chest pain shortness of breath or palpitations. Last 14 Encounter BP Readings: Date: BP: 09/19/2024 132/78 09/01/2024 152/79 07/24/2024 120/76 04/26/2024 160/80 02/15/2024 135/86 01/19/2024 122/66 07/20/2023 128/76 02/18/2023 136/78 01/04/2023 124/80 08/25/2022 124/70 08/11/2022 164/96 08/10/2022 162/90 06/11/2022 100/57 05/29/2022 138/78 DIABETES MELLITUS: Notes fasting BS 150s. Has resumed metformin. Patient's last HgA1C was Hemoglobin A1C (%) Date Value 07/14/2024 7.6 01/14/2024 7.4 05/26/2021 7.5 11/01/2020 7.4 ) Notes hot flashes, has not been using topical estrogen consistently. ROS Constitutional: (+) fatigue, (+) chills, (+) weight loss Ears/Nose/Mouth/Throat: (+) runny nose, (+) nasal congestion, (+) sneezing Respiratory: (+) cough Gastrointestinal: (+) poor appetite, (+) early satiety, (+) abdominal bloating, (+) lower abdominal tenderness, (+) constipation, (+) diarrhea, (+) black stools, (+) nausea, (-) heartburn Genitourinary: (-) dysuria, (-) urinary frequency, (-) urinary urgency Endocrine: (+) hot flashes Objective There were no vitals taken for this visit. Physical Exam Vitals and nursing note reviewed. Constitutional: Appearance: Normal appearance. HENT: Head: Normocephalic and atraumatic. Nose: Mucosal edema and rhinorrhea present. Rhinorrhea is clear. Mouth/Throat: Lips: [place]. Mouth: Mucous membranes are moist. Pharynx: Oropharynx is clear. Tonsils: No tonsillar exudate. Eyes: Conjunctiva/sclera: Conjunctivae normal. Cardiovascular: Rate and Rhythm: Normal rate and regular rhythm. Pulses: Carotid pulses are 2+ on the right side and 2+ on the left side. Radial pulses are 2+ on the right side and 2+ on the left side. Pulmonary: Effort: Pulmonary effort is normal. Breath sounds: Normal breath sounds. Abdominal: General: Bowel sounds are normal. Palpations: Abdomen is soft. Musculoskeletal: Right lower leg: No edema. Left lower leg: No edema. Skin: General: Skin is warm and dry. Neurological: General: No focal deficit present. Mental Status: She is alert and oriented to person, place, and time. 1. Urinary tract infection with hematuria, site unspecified (N39.0) 2. Microscopic hematuria (R31.29) - Recent urinalysis showed persistent hematuria, likely secondary to recent UTI. - No dysuria, urgency, or frequency reported. - Recheck urinalysis in one month to ensure resolution of hematuria. - If hematuria persists, referral to urology for further evaluation. 3. Urinary, incontinence, stress female (N39.3) 4. Atrophic vaginitis (N95.2) - Instructed to use Estrace cream, pea-sized amount externally every other day. 5. Fatigue, unspecified type (R53.83) - Likely multifactorial, including recent illness and possible dehydration. - Encouraged adequate hydration with water and Gatorade Zero. - Resume treatment for seasonal allergies to improve overall well-being. 6. Constipation, unspecified constipation type (K59.00) - Recent change in bowel habits with decreased frequency; likely secondary to over-treatment of diarrhea. - Recommended use of Miralax if not returning to usual bowel movement frequency. 7. Seasonal allergic rhinitis, unspecified trigger (J30.2) - Resumed use of azelastine nasal spray. - Advised to use soix-spe-emjrvlp antihistamines as needed. 8. Iron deficiency anemia, unspecified iron deficiency anemia type (D50.9) - Continue current iron supplementation. - Monitor for any changes in stool color or consistency. 9. Gastroesophageal reflux disease without esophagitis (K21.9) - Resume omeprazole daily; instructed to double the dose if symptoms persist. - Monitor for any signs of heartburn or reflux. 10. Acute cough (R05.1) - Recent onset of cough, likely viral or allergic in nature. - Use of inhaler as needed for cough relief. - Continue treatment for seasonal allergies to reduce respiratory symptoms. 11. Hot flashes R23.2 Recommend resume topical estrogen. Return to clinic for recheck to discuss in further detail, can add additional medication such as paroxetine, gabapentin or other measure. Declines one month follow up visit at this time Medical Decision Making: Problems: Low: Acute, uncomplicated illness or injury Moderate: 1+ chronic illnesses with change Risk: Moderate: Drug management Medical Decision Making Level: 4 - Moderate documented in this encounter [facility] 09-19-2024 Note HNO ID: [id number] Author: EBONY HONG APRN.CNS Service: ? Author Type: Nurse Specialist Type: Progress Notes Filed: 09/19/2024 10:45 Note Text: Subjective Patient ID: Rachel is a 69 year old female who presents for No chief complaint on file.. HPI Rachel is a 69-year-old female with a history of diabetes and hypertension, [facility], presenting for evaluation of persistent UTI symptoms and new onset diarrhea. She was seen in office September 01, 2024, having had an ER visit. She reported UTI symptoms persisting despite treatment from the ER. Medication was changed. Noted nausea and diarrhea, concern for possible norovirus. she was provided with symptomatic treatments. She was advised to follow-up in 3 to 7 days if not feeling improved. Returns today with report of fatigue, decreased appetite. Fatigue and Anorexia: - Persistent fatigue and anorexia following recent illness. - [place] slightly better while on antibiotics but symptoms returned post-treatment. - Reports early satiety without nausea. - Attempting to maintain hydration with water and Gatorade Zero. Abdominal Discomfort: - Recent episode of lower abdominal discomfort, described as feeling bloated and tender. - Symptoms improved today after a bowel movement. - Usual bowel pattern includes daily diarrhea, attributed to medication. - Recent constipation for 3-4 days, followed by two bowel movements today: one soft and one liquid. - Denies hematochezia or melena; stools are black due to iron supplementation. - No dysuria, urgency, or frequency reported. Respiratory Symptoms: - Recent onset of cold symptoms x3-4 days, including rhinorrhea, nasal congestion, cough, and sneezing. - Used inhaler last night with perceived benefit. - History of allergies, usually managed with azelastine nasal spray; has not been using it recently. Menopausal Symptoms: - Experiencing hot flashes, similar to those during menopause, which occurred a long time ago. - Inquires about the need for estrogen therapy. - Has been using Estrace cream inconsistently. No chest pain shortness of breath or palpitations. Last 14 Encounter BP Readings: Date: BP: 09/19/2024 132/78 09/01/2024 152/79 07/24/2024 120/76 04/26/2024 160/80 02/15/2024 135/86 01/19/2024 122/66 07/20/2023 128/76 02/18/2023 136/78 01/04/2023 124/80 08/25/2022 124/70 08/11/2022 164/96 08/10/2022 162/90 06/11/2022 100/57 05/29/2022 138/78 DIABETES MELLITUS: Notes fasting BS 150s. Has resumed metformin. Patient's last HgA1C was Hemoglobin A1C (%) Date Value 07/14/2024 7.6 01/14/2024 7.4 05/26/2021 7.5 11/01/2020 7.4 ) Notes hot flashes, has not been using topical estrogen consistently. ROS Constitutional: (+) fatigue, (+) chills, (+) weight loss Ears/Nose/Mouth/Throat: (+) runny nose, (+) nasal congestion, (+) sneezing Respiratory: (+) cough Gastrointestinal: (+) poor appetite, (+) early satiety, (+) abdominal bloating, (+) lower abdominal tenderness, (+) constipation, (+) diarrhea, (+) black stools, (+) nausea, (-) heartburn Genitourinary: (-) dysuria, (-) urinary frequency, (-) urinary urgency Endocrine: (+) hot flashes Objective There were no vitals taken for this visit. Physical Exam Vitals and nursing note reviewed. Constitutional: Appearance: Normal appearance. HENT: Head: Normocephalic and atraumatic. Nose: Mucosal edema and rhinorrhea present. Rhinorrhea is clear. Mouth/Throat: Lips: [place]. Mouth: Mucous membranes are moist. Pharynx: Oropharynx is clear. Tonsils: No tonsillar exudate. Eyes: Conjunctiva/sclera: Conjunctivae normal. Cardiovascular: Rate and Rhythm: Normal rate and regular rhythm. Pulses: Carotid pulses are 2+ on the right side and 2+ on the left side. Radial pulses are 2+ on the right side and 2+ on the left side. Pulmonary: Effort: Pulmonary effort is normal. Breath sounds: Normal breath sounds. Abdominal: General: Bowel sounds are normal. Palpations: Abdomen is soft. Musculoskeletal: Right lower leg: No edema. Left lower leg: No edema. Skin: General: Skin is warm and dry. Neurological: General: No focal deficit present. Mental Status: She is alert and oriented to person, place, and time. 1. Urinary tract infection with hematuria, site unspecified (N39.0) 2. Microscopic hematuria (R31.29) - Recent urinalysis showed persistent hematuria, likely secondary to recent UTI. - No dysuria, urgency, or frequency reported. - Recheck urinalysis in one month to ensure resolution of hematuria. - If hematuria persists, referral to urology for further evaluation. 3. Urinary, incontinence, stress female (N39.3) 4. Atrophic vaginitis (N95.2) - Instructed to use Estrace cream, pea-sized amount externally every other day. 5. Fatigue, unspecified type (R53.83) - Likely multifactorial, including recent illness and possible dehydration. - En (more content not included)... [facility] 09-18-2024 Progress note Formatting of t his note might be different from the original. Echocardiogram shows normal right and left ventricular size and function, no significant valvular abnormalities. [facility] 09-14-2024 Telephone encounter Note Patient has been identified by name and date of : Yes Patient phones for refill(s): Requested Prescriptions Pending Prescriptions Disp Refills insulin glargine-yfgn (SEMGLEE,INSULIN GLARG-YFGN,PEN) 100 unit/mL (3 mL) insulin pen 10 each 4 Sig: Inject 24 Units subcutaneously daily at bedtime. Date of last office visit in primary care: 09/01/2024 Date of next office visit in primary care: 01/26/2025 Please advise. Thank you. Parisa Bills LPN. [facility] 09-14-2024 Miscellaneous Notes Patient has been identified by name and date of : Yes Patient phones for refill(s): Requested Prescriptions Pending Prescriptions Disp Refills insulin glargine-yfgn (SEMGLEE,INSULIN GLARG-YFGN,PEN) 100 unit/mL (3 mL) insulin pen 10 each 4 Sig: Inject 24 Units subcutaneously daily at bedtime. Date of last office visit in primary care: 09/01/2024 Date of next office visit in primary care: 01/26/2025 Please advise. Thank you. Parisa Bills LPN. documented in this encounter [facility] 09-04-2024 Progress note Formatting of t his note might be different from the original. No growth [facility] 09-01-2024 History of Presen t illness Narrative Subjective Patient ID: Rachel is a 69 year old female who presents for Hospital F/U. HPI Rachel is a 69-year-old female with a history of diabetes and hypertension, [facility], presenting for evaluation of persistent UTI symptoms and new onset diarrhea. UTI: - Recent ED visit confirmed UTI; Rachel reports clear urine and absence of typical dysuria, urgency, or frequency. - Started on antibiotics Wednesday; no improvement in symptoms. - Experiencing chills, low-grade fevers, and diaphoresis. - Reports significant fatigue and weakness. Diarrhea: - Onset of diarrhea approximately 3 days ago, with frequent loose stools occurring every 30-60 minutes. - Increased fluid intake, including Gatorade, to prevent dehydration. - Denies hematochezia or melena. - Reports nausea but denies emesis. Diabetes: - Holding metformin when not eating; inconsistent medication adherence. - Fasting blood glucose this morning was 156 mg/dL. Today reports symptoms are about the same as when she seen in ER. Heartburn: yes Reflux: yes Abdominal pain: no Nausea: yes Vomiting: no Diarrhea: x 3 days many times per day, now down to once daily Constipation: no BRBPR: no Black tarry: no Dysuria: no Urgency: no Frequency: no Fever: up to 100F Has been pushing fluid, some sports drinks Review of outside records show that she was seen at [facility] emergency department August 28, 2024 for general illness, noting weakness all over and nauseated. Also noted dizziness described as lightheadedness. History of vertigo that felt different. COVID testing completed and negative. Treated with Zofran and IV fluids. CBC and metabolic panel unremarkable. Urinalysis consistent with infection. No signs of sepsis or renal problem. She was treated with Keflex as an outpatient. Advised etfk-qvh-[id number] remedies for her body aches. She was discharged home. HTN: - Experiencing mild dyspnea, particularly at night, with a sensation of needing to take deep breaths. - Reports palpitations and difficulty sleeping due to dyspnea. - Denies chest pain or edema. Last 3 Encounter BP Readings: Date: BP: 09/01/2024 152/79 07/24/2024 120/76 04/26/2024 160/80 DIABETES MELLITUS: Notes fasting BS 150s. Has been holding metformin. Patient's last HgA1C was Hemoglobin A1C (%) Date Value 07/14/2024 7.6 01/14/2024 7.4 05/26/2021 7.5 11/01/2020 7.4 ) ROS Constitutional: (+) fever, (+) chills, (+) fatigue Cardiovascular: (-) chest pain, (+) palpitations, (-) edema Respiratory: (+) shortness of breath (nocturnal), (-) shortness of breath on exertion Gastrointestinal: (+) heartburn, (+) nausea, (+) diarrhea, (-) vomiting, (-) abdominal pain Genitourinary: (-) dysuria, (-) urinary frequency, (-) urinary urgency Skin: (+) hot flashes, (+) clamminess Neurological: (+) dizziness, (-) gait disturbance Objective BP 152/79 Pulse 67 Temp 37 C (98.6 F) Resp 14 Wt 81 kg (178 lb 9.2 oz) SpO2 96% BMI 30.65 kg/m Physical Exam Vitals and nursing note reviewed. Constitutional: Appearance: Normal appearance. HENT: Head: Normocephalic and atraumatic. Eyes: Conjunctiva/sclera: Conjunctivae normal. Cardiovascular: Rate and Rhythm: Normal rate and regular rhythm. Pulses: Carotid pulses are 2+ on the right side and 2+ on the left side. Radial pulses are 2+ on the right side and 2+ on the left side. Pulmonary: Effort: Pulmonary effort is normal. Breath sounds: Normal breath sounds. Abdominal: General: Bowel sounds are normal. Palpations: Abdomen is soft. Musculoskeletal: Right lower leg: No edema. Left lower leg: No edema. Skin: General: Skin is warm and dry. Neurological: General: No focal deficit present. Mental Status: She is alert and oriented to person, place, and time. 1. Urinary tract infection with hematuria, site unspecified (N39.0) - Recent ER visit confirmed UTI by urinalysis, did not see a culture; initial antibiotic therapy seems ineffective. - Ordered repeat urinalysis with culture. - Discontinued cephalexin, to start macrobid. Cipro and bactrim interact with her plaquenil - Follow-up Wednesday or Wednesday if not feeling improved. 2. Nausea (R11.0) - Prescribed antiemetic medication to be taken around the clock for 1-2 days. - Advised to maintain hydration with Gatorade, broth, and water. 3. Diarrhea, unspecified type (R19.7) - Suspect gastroenteritis in addition to UTI, possibly norovirus; frequent episodes reported every hour. - Recommended Imodium OTC to manage symptoms. - Emphasized importance of fluid intake to prevent dehydration. 4. SOB (shortness of breath) (R06.02) 5. PND (paroxysmal nocturnal dyspnea) (R06.00) - Episodes of dyspnea noted, particularly at night. - No chest pain or palpitations reported. - Ordered echocardiogram to evaluate cardiac function. 6. Controlled type 2 diabetes mellitus without complication, with long-term current use of insulin (HCC) (E11.9) - Blood glucose levels stable; recent fasting glucose 156 mg/dL. - Adjusted metformin intake based on dietary intake. 7. Essential hypertension (I10) - Continue current antihypertensive regimen. - Monitor blood pressure regularly. Medical Decision Making: Problems: Low: Acute, uncomplicated illness or injury Data: Unique source(s) for external note(s) reviewed: 1 Unique test result(s) reviewed: 3+ Unique test(s) ordered: 3+ Risk: Moderate: Drug management Medical Decision Making Level: 4 - Moderate documented in this encounter [facility] 09-01-2024 Note HNO ID: [id number] Author: EBONY HONG APRN.DEBUG TECHNICIAN Service: ? Author Type: Nurse Specialist Type: Progress Notes Filed: 09/01/2024 12:47 Note Text: Subjective Patient ID: Rachel is a 69 year old female who presents for Hospital F/U. HPI Rachel is a 69-year-old female with a history of diabetes and hypertension, rheumatological disorder on plaquenil, presenting for evaluation of persistent UTI symptoms and new onset diarrhea. UTI: - Recent ED visit confirmed UTI; Rachel reports clear urine and absence of typical dysuria, urgency, or frequency. - Started on antibiotics Wednesday; no improvement in symptoms. - Experiencing chills, low-grade fevers, and diaphoresis. - Reports significant fatigue and weakness. Diarrhea: - Onset of diarrhea approximately 3 days ago, with frequent loose stools occurring every 30-60 minutes. - Increased fluid intake, including Gatorade, to prevent dehydration. - Denies hematochezia or melena. - Reports nausea but denies emesis. Diabetes: - Holding metformin when not eating; inconsistent medication adherence. - Fasting blood glucose this morning was 156 mg/dL. Today reports symptoms are about the same as when she seen in ER. Heartburn: yes Reflux: yes Abdominal pain: no Nausea: yes Vomiting: no Diarrhea: x 3 days many times per day, now down to once daily Constipation: no BRBPR: no Black tarry: no Dysuria: no Urgency: no Frequency: no Fever: up to 100F Has been pushing fluid, some sports drinks Review of outside records show that she was seen at [facility] emergency department August 28, 2024 for general illness, noting weakness all over and nauseated. Also noted dizziness described as lightheadedness. History of vertigo that felt different. COVID testing completed and negative. Treated with Zofran and IV fluids. CBC and metabolic panel unremarkable. Urinalysis consistent with infection. No signs of sepsis or renal problem. She was treated with Keflex as an outpatient. Advised fcqv-szp-odxwyqo remedies for her body aches. She was discharged home. HTN: - Experiencing mild dyspnea, particularly at night, with a sensation of needing to take deep breaths. - Reports palpitations and difficulty sleeping due to dyspnea. - Denies chest pain or edema. Last 3 Encounter BP Readings: Date: BP: 09/01/2024 152/79 07/24/2024 120/76 04/26/2024 160/80 DIABETES MELLITUS: Notes fasting BS 150s. Has been holding metformin. Patient's last HgA1C was Hemoglobin A1C (%) Date Value 07/14/2024 7.6 01/14/2024 7.4 05/26/2021 7.5 11/01/2020 7.4 ) ROS Constitutional: (+) fever, (+) chills, (+) fatigue Cardiovascular: (-) chest pain, (+) palpitations, (-) edema Respiratory: (+) shortness of breath (nocturnal), (-) shortness of breath on exertion Gastrointestinal: (+) heartburn, (+) nausea, (+) diarrhea, (-) vomiting, (-) abdominal pain Genitourinary: (-) dysuria, (-) urinary frequency, (-) urinary urgency Skin: (+) hot flashes, (+) clamminess Neurological: (+) dizziness, (-) gait disturbance Objective BP 152/79 Pulse 67 Temp 37 ?C (98.6 ?F) Resp 14 Wt 81 kg (178 lb 9.2 oz) SpO2 96% BMI 30.65 kg/m? Physical Exam Vitals and nursing note reviewed. Constitutional: Appearance: Normal appearance. HENT: Head: Normocephalic and atraumatic. Eyes: Conjunctiva/sclera: Conjunctivae normal. Cardiovascular: Rate and Rhythm: Normal rate and regular rhythm. Pulses: Carotid pulses are 2+ on the right side and 2+ on the left side. Radial pulses are 2+ on the right side and 2+ on the left side. Pulmonary: Effort: Pulmonary effort is normal. Breath sounds: Normal breath sounds. Abdominal: General: Bowel sounds are normal. Palpations: Abdomen is soft. Musculoskeletal: Right lower leg: No edema. Left lower leg: No edema. Skin: General: Skin is warm and dry. Neurological: General: No focal deficit present. Mental Status: She is alert and oriented to person, place, and time. 1. Urinary tract infection with hematuria, site unspecified (N39.0) - Recent ER visit confirmed UTI by urinalysis, did not see a culture; initial antibiotic therapy seems ineffective. - Ordered repeat urinalysis with culture. - Discontinued cephalexin, to start macrobid. Cipro and bactrim interact with her plaquenil - Follow-up Wednesday or Wednesday if not feeling improved. 2. Nausea (R11.0) - Prescribed antiemetic medication to be taken around the clock for 1-2 days. - Advised to maintain hydration with Gatorade, broth, and water. 3. Diarrhea, unspecified type (R19.7) - Suspect gastroenteritis in addition to UTI, possibly norovirus; frequent episodes reported every hour. - Recommended Imodium OTC to manage symptoms. - Emphasized importance of fluid intake to prevent dehydration. 4. SOB (shortness of breath) (R06.02) 5. PND (paroxysmal nocturnal dyspnea) (R06.00) - Episodes of dyspnea noted, particul (more content not included)... [facility] 07-24-2024 Instructions Iglesia Messina MD - 07/24/2024 9:49 AM EDT - Increase your Vitamin D intake to 1,000-2,000 IU daily. - Continue taking Metformin, Omeprazole, and Pravastatin as prescribed; refills for a 90-day supply with refills for the year have been sent to your pharmacy. - Use Albuterol as needed for cough. - Continue using Astepro nasal spray as needed for decongestion. - Monitor your blood sugar levels twice daily using test strips; a new prescription for test strips has been sent to your pharmacy. - Refill your insulin needles as needed; a new prescription has been sent to your pharmacy. - Maintain a healthy diet and exercise regularly to help manage your blood sugar levels. - Schedule an eye exam with Dr. Thakkar if not already done. - Consider getting the Shingrix vaccine for shingles at your pharmacy; it is more effective than the Zostavax vaccine you received in 2017. - Next follow-up appointment is in 6 months. documented in this encounter [facility] 07-24-2024 Note HNO ID: [id number] Author: IGLESIA MESSINA MD Service: ? Author Type: Physician Type: Progress Notes Filed: 07/24/2024 09:51 Note Text: This note was created using [employer].. Subjective Rachel Holloway is a 69 year old female. Patient presents with: 6 month f/up Rachel is a 69-year-old female with a history of DM, GERD, and HLD, presenting for a 6-month follow-up visit. Rachel reports doing well and successfully avoiding illnesses during the winter season. She is currently taking a calcium and vitamin D supplement but notes that it contains only 10 mg of vitamin D. She has completed the bottle and is considering increasing her vitamin D intake. She is also using Astepro nasal spray for decongestion and has sufficient supply. She has a history of a persistent cough for which she has albuterol on hand. She denies any current swelling. Recent lab results show a blood glucose level of 115 mg/dL, normal liver and kidney function tests, normal electrolytes, and a normal CBC. Her lipid panel shows an HDL of 76 mg/dL, triglycerides under 150 mg/dL, and an LDL of 68 mg/dL. Her HbA1c is in the 7% range. Vitamin D levels have dipped slightly but are still better than in June of the previous year. She is currently taking metformin, omeprazole, and pravastatin, and requests refills for these medications. She also requests a new prescription for test strips, which she uses twice daily, and needles for her insulin. She denies needing lancets at this time. She is also using Estrace and has a sufficient supply. She is taking Plaquenil, managed by Dr. Albright, and Semglee, with refills available. Her losartan prescription will in September so refill needed. She has a history ofvertigo and is currently managing it with Antivert. She has a history of receiving the Zostavax vaccine in 2017 and is considering the Shingrix vaccine. She has an upcoming eye exam scheduled with Dr. Thakkar. PAST MEDICAL HISTORY Diagnosis Date Arthritis Cough Esophageal reflux Neurogenic bladder 05/2018 Had urodynamics and cystoscopy by Dr. Cortez, she recommends interstim Other and unspecified hyperlipidemia Recurrent UTI Type II or unspecified type diabetes mellitus without mention of complication, not stated as uncontrolled Unspecified essential hypertension mild Current Outpatient Medications Medication Sig glipiZIDE (GLUCOTROL) 10 mg tablet Take 1 tablet (10 mg) by mouth two times a day. atenolol (TENORMIN) 25 mg tablet Take 1 tablet by mouth once daily. albuterol HFA (PROVENTIL HFA) 90 mcg/actuation inhaler Inhale 1-2 Puffs as instructed four times a day as needed for wheezing/shortness of breath (cough). insulin glargine-yfgn (SEMGLEE,INSULIN GLARG-YFGN,PEN) 100 unit/mL (3 mL) insulin pen Inject 24 Units subcutaneously daily at bedtime. meclizine (ANTIVERT) 25 mg tab Take 25 mg by mouth four times a day as needed. Azelastine (ASTEPRO ALLERGY) 205.5 mcg (0.15 %) spry Use 1 [place] in each nostril once daily. Lancets lancets Test blood sugar(s) 2 times daily or as instructed. Dx: Type 2 DM - Controlled E11.9 Insulin: Yes estradiol (ESTRACE) 0.01 % (0.1 mg/gram) vaginal cream use vaginally once or twice weekly as directed Cholecalciferol, Vitamin D3, 25 mcg (1,000 unit) cap Take 1 capsule by mouth once daily. Lancets (ACCU-CHEK SOFTCLIX LANCETS) lancets Use as instructed. Dx: E11.9, Z79.4 . Insulin: Yes. hydroxychloroquine (PLAQUENIL) 200 mg tablet Take 1 tablet by mouth twice daily. (Dr. Albright) aspirin, enteric coated (ASPIRIN, ENTERIC COATED) 81 mg EC tablet Take 81 mg by mouth once daily. MULTIVITAMIN TAB Take by mouth. metFORMIN ER (GLUCOPHAGE XR) 500 mg 24 hr tablet Take 1 tablet by mouth two times a day. omeprazole (PRILOSEC) 20 mg capsule Take 1 capsule by mouth once daily. pravastatin (PRAVACHOL) 20 mg tablet Take 1 tablet by mouth daily at bedtime. blood sugar diagnostic (BLOOD GLUCOSE TEST) test strip One Touch Verio. Test blood sugar(s) 2 times daily or as instructed. Dx: Type 2 DM - Controlled E11.9 Insulin: Yes. insulin needles, DISPOSABLE, (PEN NEEDLE) 31 gauge x 5/16 Use one needle per dose. 1 per day. Diagnoses: E11.9, Z79.4 losartan (COZAAR) 25 mg tablet Take 1 tablet by mouth once daily. Ca/D3/mag ox/zinc/newspaper copy editor/shanelle/bor (CALCIUM 600-D3 PLUS ORAL) Take 1 capsule by mouth once daily. (Patient not taking: Reported on 01/19/2024) No current facility-administered medications for this visit. Review of Systems Objective BP 120/76 Pulse 60 Resp 12 Wt 82.1 kg (181 lb) BMI 31.07 kg/m? Last 5 Encounter Wt Readings: Date: Wt: 07/24/2024 82.1 kg (181 lb) 04/26/2024 82.6 kg (182 lb 1.6 oz) 01/19/2024 81.2 kg (179 lb 0.2 oz) 07/20/2023 84.8 kg (187 lb) 02/18/2023 83.3 kg (183 lb 9.6 oz) No waist measurement recorded Estimated body mass index is 31.07 kg/m? as calculated from the following: Height as of 07/20/23: 162.6 cm (5' 4). Weight as (more content not included)... [facility] 07-24-2024 History of Presen t illness Narrative This note was created using [employer]. Subjective Rachel Holloway is a 69 year old female. Patient presents with: 6 month f/up Rachel is a 69-year-old female with a history of DM, GERD, and HLD, presenting for a 6-month follow-up visit. Rachel reports doing well and successfully avoiding illnesses during the winter season. She is currently taking a calcium and vitamin D supplement but notes that it contains only 10 mg of vitamin D. She has completed the bottle and is considering increasing her vitamin D intake. She is also using Astepro nasal spray for decongestion and has sufficient supply. She has a history of a persistent cough for which she has albuterol on hand. She denies any current swelling. Recent lab results show a blood glucose level of 115 mg/dL, normal liver and kidney function tests, normal electrolytes, and a normal CBC. Her lipid panel shows an HDL of 76 mg/dL, triglycerides under 150 mg/dL, and an LDL of 68 mg/dL. Her HbA1c is in the 7% range. Vitamin D levels have dipped slightly but are still better than in June of the previous year. She is currently taking metformin, omeprazole, and pravastatin, and requests refills for these medications. She also requests a new prescription for test strips, which she uses twice daily, and needles for her insulin. She denies needing lancets at this time. She is also using Estrace and has a sufficient supply. She is taking Plaquenil, managed by Dr. Albright, and Semglee, with refills available. Her losartan prescription will in September so refill needed. She has a history of vertigo and is currently managing it with Antivert. She has a history of receiving the Zostavax vaccine in 2017 and is considering the Shingrix vaccine. She has an upcoming eye exam scheduled with Dr. Thakkar. PAST MEDICAL HISTORY Diagnosis Date Arthritis Cough Esophageal reflux Neurogenic bladder 05/2018 Had urodynamics and cystoscopy by Dr. Cortez, she recommends interstim Other and unspecified hyperlipidemia Recurrent UTI Type II or unspecified type diabetes mellitus without mention of complication, not stated as uncontrolled Unspecified essential hypertension mild Current Outpatient Medications Medication Sig glipiZIDE (GLUCOTROL) 10 mg tablet Take 1 tablet (10 mg) by mouth two times a day. atenolol (TENORMIN) 25 mg tablet Take 1 tablet by mouth once daily. albuterol HFA (PROVENTIL HFA) 90 mcg/actuation inhaler Inhale 1-2 Puffs as instructed four times a day as needed for wheezing/shortness of breath (cough). insulin glargine-yfgn (SEMGLEE,INSULIN GLARG-YFGN,PEN) 100 unit/mL (3 mL) insulin pen Inject 24 Units subcutaneously daily at bedtime. meclizine (ANTIVERT) 25 mg tab Take 25 mg by mouth four times a day as needed. Azelastine (ASTEPRO ALLERGY) 205.5 mcg (0.15 %) spry Use 1 [place] in each nostril once daily. Lancets lancets Test blood sugar(s) 2 times daily or as instructed. Dx: Type 2 DM - Controlled E11.9 Insulin: Yes estradiol (ESTRACE) 0.01 % (0.1 mg/gram) vaginal cream use vaginally once or twice weekly as directed Cholecalciferol, Vitamin D3, 25 mcg (1,000 unit) cap Take 1 capsule by mouth once daily. Lancets (ACCU-CHEK SOFTCLIX LANCETS) lancets Use as instructed. Dx: E11.9, Z79.4 . Insulin: Yes. hydroxychloroquine (PLAQUENIL) 200 mg tablet Take 1 tablet by mouth twice daily. (Dr. Albright) aspirin, enteric coated (ASPIRIN, ENTERIC COATED) 81 mg EC tablet Take 81 mg by mouth once daily. MULTIVITAMIN TAB Take by mouth. metFORMIN ER (GLUCOPHAGE XR) 500 mg 24 hr tablet Take 1 tablet by mouth two times a day. omeprazole (PRILOSEC) 20 mg capsule Take 1 capsule by mouth once daily. pravastatin (PRAVACHOL) 20 mg tablet Take 1 tablet by mouth daily at bedtime. blood sugar diagnostic (BLOOD GLUCOSE TEST) test strip One Touch Verio. Test blood sugar(s) 2 times daily or as instructed. Dx: Type 2 DM - Controlled E11.9 Insulin: Yes. insulin needles, DISPOSABLE, (PEN NEEDLE) 31 gauge x 5/16 Use one needle per dose. 1 per day. Diagnoses: E11.9, Z79.4 losartan (COZAAR) 25 mg tablet Take 1 tablet by mouth once daily. Ca/D3/mag ox/zinc/newspaper copy editor/shanelle/bor (CALCIUM 600-D3 PLUS ORAL) Take 1 capsule by mouth once daily. (Patient not taking: Reported on 01/19/2024) No current facility-administered medications for this visit. Review of Systems Objective BP 120/76 Pulse 60 Resp 12 Wt 82.1 kg (181 lb) BMI 31.07 kg/m Last 5 Encounter Wt Readings: Date: Wt: 07/24/2024 82.1 kg (181 lb) 04/26/2024 82.6 kg (182 lb 1.6 oz) 01/19/2024 81.2 kg (179 lb 0.2 oz) 07/20/2023 84.8 kg (187 lb) 02/18/2023 83.3 kg (183 lb 9.6 oz) No waist measurement recorded Estimated body mass index is 31.07 kg/m as calculated from the following: Height as of 07/20/23: 162.6 cm (5' 4). Weight as of this encounter: 82.1 kg (181 lb). Last 5 Encounter BP Readings: Date: BP: 07/24/2024 120/76 04/26/2024 160/80 02/15/2024 135/86 01/19/2024 122/66 07/20/2023 128/76 Physical Exam Constitutional: Appearance: Normal appearance. HENT: Head: Normocephalic. Eyes: Conjunctiva/sclera: Conjunctivae normal. Cardiovascular: Rate and Rhythm: Normal rate and regular rhythm. Heart sounds: Normal heart sounds. Pulmonary: Effort: Pulmonary effort is normal. Breath sounds: Normal breath sounds. Musculoskeletal: Right lower leg: No edema. Left lower leg: No edema. Skin: General: Skin is warm and dry. Neurological: General: No focal deficit present. Mental Status: She is alert and oriented to person, place, and time. Psychiatric: Attention and Perception: Attention and perception normal. Mood and Affect: Mood and affect normal. Speech: Speech normal. Behavior: Behavior normal. Thought Content: Thought content normal. Judgment: Judgment normal. Latest Ref Rng 07/09/2023 01/14/2024 01/19/2024 07/14/2024 Protein, Total 6.3 - 8.0 g/dL 7.5 7.3 7.6 Albumin 3.9 - 4.9 g/dL 4.2 4.3 4.4 Calcium 8.5 - 10.2 mg/dL 9.6 9.5 9.6 Bilirubin, Total 0.2 - 1.3 mg/dL 0.3 0.3 0.3 Alkaline Phosphatase 34 - 123 U/L 93 94 85 AST 13 - 35 U/L 21 23 23 ALT 7 - 38 U/L 20 23 18 Glucose 74 - 99 mg/dL 167 (H) 104 (H) 115 (H) BUN 7 - 21 mg/dL 10 11 10 Creatinine 0.58 - 0.96 mg/dL 0.74 0.72 0.65 Sodium 136 - 144 mmol/L 138 139 141 Potassium 3.7 - 5.1 mmol/L 3.9 4.1 3.9 Chloride 98 - 107 mmol/L 101 101 100 CO2 22 - 30 mmol/L 30 28 29 Anion Gap 8 - 15 mmol/L 7 (L) 10 12 eGFR >=60 mL/min/1.73m 88 91 95 WBC 3.70 - 11.00 k/uL 6.24 7.35 6.26 RBC 3.90 - 5.20 m/uL 4.64 4.45 4.38 Hemoglobin 11.5 - 15.5 g/dL 13.7 13.4 13.1 Hematocrit 36.0 - 46.0 % 41.3 39.8 39.2 MCV 80.0 - 100.0 fL 89.0 89.4 89.5 MCH 26.0 - 34.0 pg 29.5 30.1 29.9 MCHC 30.5 - 36.0 g/dL 33.2 33.7 33.4 RDW-CV 11.5 - 15.0 % 12.9 13.1 13.0 Platelet Count 150 - 400 k/uL 287 288 277 MPV 9.0 - 12.7 fL 9.6 9.7 9.8 Absolute nRBC <0.01 k/uL <0.01 <0.01 <0.01 Cholesterol, Total <200 mg/dL 181 180 168 Triglyceride <150 mg/dL 130 129 119 HDL Cholesterol >39 mg/dL 81 75 76 Non HDL Cholesterol <130 mg/dL 100 105 92 Fasting Time hrs 12 13 12 VLDL Cholesterol <30 mg/dL 26 26 24 TC:HDL Ratio <5.10 2.23 2.40 2.21 LDL Cholesterol <100 mg/dL 74 79 68 LDL:HDL Ratio <2.54 0.91 1.05 0.89 Creatinine, Ur Random (UCRR) 20.0 - 300.0 mg/dL 92.4 Albumin, Urine Random mg/L 14.7 Albumin/Creat Ratio <30 mg/g 16 Hemoglobin A1C 4.3 - 5.6 % 7.9 (H) 7.4 (H) 7.6 (H) Estimated Average Glucose mg/dL 180 166 171 Vitamin D 25 Hydroxy 31.0 - 80.0 ng/mL 26.0 (L) 32.8 30.6 (L) Magnesium 1.7 - 2.3 mg/dL 1.9 1.9 Legend: (H) High (L) Low Assessment and Plan # Controlled type 2 diabetes mellitus without complication, with long-term current use of insulin (HCC) (E11.9) - Hemoglobin A1c in the 7% range; fasting glucose levels are stable. - Discussed importance of diet and exercise in glycemic control to avoid increasing insulin doses, which can lead to weight gain and increased cardiovascular risk. - Refilled Metformin 90-day supply with refills for the year. - Refilled Semglee with refills. - Ordered test strips for blood glucose monitoring, to be used twice daily. - Refilled insulin needles. - Follow-up in 6 months with repeat labs ordered 5 months from now. # Gastroesophageal reflux disease without esophagitis (K21.9) - Refilled Omeprazole 90-day supply with refills for the year. - Continue current management. # Mixed hyperlipidemia (E78.2) - LDL cholesterol at 68 mg/dL, HDL at 76 mg/dL, triglycerides under 150 mg/dL; all within target range. - Refilled Pravastatin 90-day supply with refills for the year. - Continue current management. # Essential hypertension (I10) - Blood pressure well-controlled. - Refilled Losartan, to be filled when due in September. - Continue current management. # Vitamin D deficiency (E55.9) - Vitamin D levels slightly decreased. - Advised to increase Vitamin D supplementation to 1,000-2,000 IU daily. - Will monitor levels at next follow-up. # Encounter for immunization (Z23) - Discussed RSV vaccine; not currently available as the season is over. - Educated on Shingrix vaccine, which is more effective than Zostavax; recommended considering vaccination at the pharmacy. # Controlled type 2 diabetes mellitus without complication, with long-term current use of insulin (HCC) (E11.9) - Hemoglobin A1c in the 7% range; fasting glucose levels are stable. - Discussed importance of diet and exercise in glycemic control to avoid increasing insulin doses, which can lead to weight gain and increased cardiovascular risk. - Refilled Metformin 90-day supply with refills for the year. - Refilled Semglee with refills. - Ordered test strips for blood glucose monitoring, to be used twice daily. - Refilled insulin needles. - Follow-up in 6 months with repeat labs ordered 5 months from now. # Gastroesophageal reflux disease without esophagitis (K21.9) - Refilled Omeprazole 90-day supply with refills for the year. - Continue current management. # Mixed hyperlipidemia (E78.2) - LDL cholesterol at 68 mg/dL, HDL at 76 mg/dL, triglycerides under 150 mg/dL; all within target range. - Refilled Pravastatin 90-day supply with refills for the year. - Continue current management. # Essential hypertension (I10) - Blood pressure well-controlled. - Refilled Losartan, to be filled when due in September. - Continue current management. # Vitamin D deficiency (E55.9) - Vitamin D levels slightly decreased. - Advised to increase Vitamin D supplementation to 1,000-2,000 IU daily. - Will monitor levels at next follow-up. # Encounter for immunization (Z23) - Discussed RSV vaccine; not currently available as the season is over. - Educated on Shingrix vaccine, which is more effective than Zostavax; recommended considering vaccination at the pharmacy. Iglesia Messina MD The patient consented to the use of [employer] software for draft documentation of the visit consistent with [facility] s Notice of Privacy Practices. documented in this encounter [facility] 04-26-2024 History of Presen t illness Narrative Radiology Service Progress Note PATIENT NAME: Rachel Holloway DATE OF SERVICE: April 26, 2024 TIME: 10:01 AM PATIENT IDENTITY VERIFICATION COMPLETED USING TWO (2) IDENTIFIERS: Name and Date of confirmed by patient verbally. FALL SCREENING: Has the patient had 2 falls in the last year or 1 fall with injury or currently using an Ambulatory Assistive Device (Walker, Cane, Wheelchair, Crutches, etc.)? No PATIENT GENDER DATA: Female. status: : No status: NO. PATIENT RELEVANT IMPLANT DATA REVIEWED: Not Applicable PATIENT PRESENTS WITH AN IMPLANTABLE OR ATTACHED KNIFE SETTER GRINDER MACHINE: No RADIOLOGY DEPARTMENT: General X-ray: Exam(s) Completed: Chest X-Ray PERIPHERAL IV DATA: Not applicable SIGNED BY: RT Erick(R) April 26, 2024 10:01 AM documented in this encounter [facility] 04-26-2024 Note HNO ID: [id number] Author: ROSEMARIE JACKSON RT(R) Service: Radiology Author Type: Technologist Type: Progress Notes Filed: 04/26/2024 10:05 Note Text: Radiology Service Progress Note PATIENT NAME: Rachel Holloway DATE OF SERVICE: April 26, 2024 TIME: 10:01 AM PATIENT IDENTITY VERIFICATION COMPLETED USING TWO (2) IDENTIFIERS: Name and Date of confirmed by patient verbally. FALL SCREENING: Has the patient had 2 falls in the last year or 1 fall with injury or currently using an Ambulatory Assistive Device (Walker, Cane, Wheelchair, Crutches, etc.)? No PATIENT GENDER DATA: Female. status: : No status: NO. PATIENT RELEVANT IMPLANT DATA REVIEWED: Not Applicable PATIENT PRESENTS WITH AN IMPLANTABLE OR ATTACHED KNIFE SETTER GRINDER MACHINE: No RADIOLOGY DEPARTMENT: General X-ray: Exam(s) Completed: Chest X-Ray PERIPHERAL IV DATA: Not applicable SIGNED BY: RT Erick(Esha) April 26, 2024 10:01 AM [facility] 04-26-2024 Note HNO ID: [id number] Author: SONNY ADAMS MD Service: ? Author Type: Physician Type: Progress Notes Filed: 04/26/2024 10:17 Note Text: Patient presents with: Cough: Chest congestion x 2 weeks HPI: Coughing since 04/13/24. Initial URI symptoms are resolved; cough is improved some but lingering. Positive symptoms: Cough, slight Wheezing, improved Rhinorrhea, Resolved: Sore throat, Nasal Congestion, chest soreness Negative symptoms: Shortness of breath, Fever, Vomiting, Diarrhea, OTC: cough and Cold Medicine Negative home COVID test last week. Denies history of asthma, COPD, smoking, or pneumonia. Her brother in [place] yesterday. She is concerned about traveling and being around family with her cough. MEDICATIONS: Current Outpatient Medications Medication Sig insulin glargine-yfgn (SEMGLEE,INSULIN GLARG-YFGN,PEN) 100 unit/mL (3 mL) insulin pen Inject 24 Units subcutaneously daily at bedtime. meclizine (ANTIVERT) 25 mg tab Take 25 mg by mouth four times a day as needed. Azelastine (ASTEPRO ALLERGY) 205.5 mcg (0.15 %) spry Use 1 [place] in each nostril once daily. losartan (COZAAR) 25 mg tablet Take 1 tablet by mouth once daily. metFORMIN ER (GLUCOPHAGE XR) 500 mg 24 hr tablet Take 1 tablet by mouth two times a day. omeprazole (PRILOSEC) 20 mg capsule Take 1 capsule by mouth once daily. pravastatin (PRAVACHOL) 20 mg tablet Take 1 tablet by mouth daily at bedtime. blood sugar diagnostic (BLOOD GLUCOSE TEST) test strip One Touch Verio. Test blood sugar(s) 2 times daily or as instructed. Dx: Type 2 DM - Controlled E11.9 Insulin: Yes. insulin needles, DISPOSABLE, (PEN NEEDLE) 31 gauge x 5/16 Use one needle per dose. 1 per day. Diagnosis: 250.02 glipiZIDE (GLUCOTROL) 10 mg tablet Take 1 tablet (10 mg) by mouth two times a day. atenolol (TENORMIN) 25 mg tablet Take 1 tablet by mouth once daily. Lancets lancets Test blood sugar(s) 2 times daily or as instructed. Dx: Type 2 DM - Controlled E11.9 Insulin: Yes estradiol (ESTRACE) 0.01 % (0.1 mg/gram) vaginal cream use vaginally once or twice weekly as directed Cholecalciferol, Vitamin D3, 25 mcg (1,000 unit) cap Take 1 capsule by mouth once daily. Lancets (ACCU-CHEK SOFTCLIX LANCETS) lancets Use as instructed. Dx: E11.9, Z79.4 . Insulin: Yes. hydroxychloroquine (PLAQUENIL) 200 mg tablet Take 1 tablet by mouth twice daily. (Dr. Albright) aspirin, enteric coated (ASPIRIN, ENTERIC COATED) 81 mg EC tablet Take 81 mg by mouth once daily. MULTIVITAMIN TAB Take by mouth. Ca/D3/mag ox/zinc/newspaper copy editor/shanelle/bor (CALCIUM 600-D3 PLUS ORAL) Take 1 capsule by mouth once daily. (Patient not taking: Reported on 01/19/2024) No current facility-administered medications for this visit. ALLERGIES: ALLERGIES Allergen Reactions Lisinopril Cough VITALS: BP 160/80 Pulse 80 Temp 36.2 ?C (97.1 ?F) Resp 19 Wt 82.6 kg (182 lb 1.6 oz) SpO2 94% BMI 31.26 kg/m? PHYSICAL EXAM: GEN: Pleasant, in no acute distress. HEENT: PERRL, EOMI, conjunctiva clear Ears: canals clear. TMs without erythema, bulge, or effusion Sinuses: non-tender frontal sinus, non-tender maxillary sinuses Throat: moist mucous membranes, no erythema, no exudate Neck: supple, no thyromegaly, no lymphadenopathy HEART: regular rate, regular rhythm, no murmurs LUNGS: clear to auscultation, no wheezes or crackles, no increased WOB; frequent non-productive cough ASSESSMENT/PLAN: 1. Subacute cough - ICD9: 786.2, ICD10: R05.2 - XR CHEST 2V FRONTAL/LAT - negative. - suspect viral URI with bronchitis. Cough from bronchitis may take 5 weeks to resolve. She is beyond the typical contagious time frame. - Discussed supportive care treatment with rest, cold medicine, and analgesia. - BENZONATATE 100 MG CAPSULE Sonny Adams MD [facility] 04-26-2024 History of Presen t illness Narrative Patient presents with: Cough: Chest congestion x 2 weeks HPI: Coughing since 04/13/24. Initial URI symptoms are resolved; cough is improved some but lingering. Positive symptoms: Cough, slight Wheezing, improved Rhinorrhea, Resolved: Sore throat, Nasal Congestion, chest soreness Negative symptoms: Shortness of breath, Fever, Vomiting, Diarrhea, OTC: cough and Cold Medicine Negative home COVID test last week. Denies history of asthma, COPD, smoking, or pneumonia. Her brother in [place] yesterday. She is concerned about traveling and being around family with her cough. MEDICATIONS: Current Outpatient Medications Medication Sig insulin glargine-yfgn (SEMGLEE,INSULIN GLARG-YFGN,PEN) 100 unit/mL (3 mL) insulin pen Inject 24 Units subcutaneously daily at bedtime. meclizine (ANTIVERT) 25 mg tab Take 25 mg by mouth four times a day as needed. Azelastine (ASTEPRO ALLERGY) 205.5 mcg (0.15 %) spry Use 1 [place] in each nostril once daily. losartan (COZAAR) 25 mg tablet Take 1 tablet by mouth once daily. metFORMIN ER (GLUCOPHAGE XR) 500 mg 24 hr tablet Take 1 tablet by mouth two times a day. omeprazole (PRILOSEC) 20 mg capsule Take 1 capsule by mouth once daily. pravastatin (PRAVACHOL) 20 mg tablet Take 1 tablet by mouth daily at bedtime. blood sugar diagnostic (BLOOD GLUCOSE TEST) test strip One Touch Verio. Test blood sugar(s) 2 times daily or as instructed. Dx: Type 2 DM - Controlled E11.9 Insulin: Yes. insulin needles, DISPOSABLE, (PEN NEEDLE) 31 gauge x 5/16 Use one needle per dose. 1 per day. Diagnosis: 250.02 glipiZIDE (GLUCOTROL) 10 mg tablet Take 1 tablet (10 mg) by mouth two times a day. atenolol (TENORMIN) 25 mg tablet Take 1 tablet by mouth once daily. Lancets lancets Test blood sugar(s) 2 times daily or as instructed. Dx: Type 2 DM - Controlled E11.9 Insulin: Yes estradiol (ESTRACE) 0.01 % (0.1 mg/gram) vaginal cream use vaginally once or twice weekly as directed Cholecalciferol, Vitamin D3, 25 mcg (1,000 unit) cap Take 1 capsule by mouth once daily. Lancets (ACCU-CHEK SOFTCLIX LANCETS) lancets Use as instructed. Dx: E11.9, Z79.4 . Insulin: Yes. hydroxychloroquine (PLAQUENIL) 200 mg tablet Take 1 tablet by mouth twice daily. (Dr. Albright) aspirin, enteric coated (ASPIRIN, ENTERIC COATED) 81 mg EC tablet Take 81 mg by mouth once daily. MULTIVITAMIN TAB Take by mouth. Ca/D3/mag ox/zinc/newspaper copy editor/shanelle/bor (CALCIUM 600-D3 PLUS ORAL) Take 1 capsule by mouth once daily. (Patient not taking: Reported on 01/19/2024) No current facility-administered medications for this visit. ALLERGIES: ALLERGIES Allergen Reactions Lisinopril Cough VITALS: BP 160/80 Pulse 80 Temp 36.2 C (97.1 F) Resp 19 Wt 82.6 kg (182 lb 1.6 oz) SpO2 94% BMI 31.26 kg/m PHYSICAL EXAM: GEN: Pleasant, in no acute distress. HEENT: PERRL, EOMI, conjunctiva clear Ears: canals clear. TMs without erythema, bulge, or effusion Sinuses: non-tender frontal sinus, non-tender maxillary sinuses Throat: moist mucous membranes, no erythema, no exudate Neck: supple, no thyromegaly, no lymphadenopathy HEART: regular rate, regular rhythm, no murmurs LUNGS: clear to auscultation, no wheezes or crackles, no increased WOB; frequent non-productive cough ASSESSMENT/PLAN: 1. Subacute cough - ICD9: 786.2, ICD10: R05.2 - XR CHEST 2V FRONTAL/LAT - negative. - suspect viral URI with bronchitis. Cough from bronchitis may take 5 weeks to resolve. She is beyond the typical contagious time frame. - Discussed supportive care treatment with rest, cold medicine, and analgesia. - BENZONATATE 100 MG CAPSULE Sonny Adams MD documented in this encounter [facility] 04-03-2024 History of Presen t illness Narrative Radiology Service Progress Note PATIENT NAME: Rachel Holloway DATE OF SERVICE: April 03, 2024 TIME: 8:03 AM PATIENT IDENTITY VERIFICATION COMPLETED USING TWO (2) IDENTIFIERS: Name and Date of confirmed by patient verbally. FALL SCREENING: Has the patient had 2 falls in the last year or 1 fall with injury or currently using an Ambulatory Assistive Device (Walker, Cane, Wheelchair, Crutches, etc.)? No PATIENT GENDER DATA: Female. status: : No status: NO. PATIENT RELEVANT IMPLANT DATA REVIEWED: Not Applicable PATIENT PRESENTS WITH AN IMPLANTABLE OR ATTACHED KNIFE SETTER GRINDER MACHINE: No RADIOLOGY DEPARTMENT: Mammography PERIPHERAL IV DATA: Not applicable SIGNED BY: Kacey Agarwal April 03, 2024 8:03 AM documented in this encounter [facility] 04-03-2024 Note HNO ID: [id number] Author: MARY GRACE BAIG Mammo Tech Service: ? Author Type: [employer] Mechanical Type: Progress Notes Filed: 04/03/2024 08:04 Note Text: Radiology Service Progress Note PATIENT NAME: Rachel Holloway DATE OF SERVICE: April 03, 2024 TIME: 8:03 AM PATIENT IDENTITY VERIFICATION COMPLETED USING TWO (2) IDENTIFIERS: Name and Date of confirmed by patient verbally. FALL SCREENING: Has the patient had 2 falls in the last year or 1 fall with injury or currently using an Ambulatory Assistive Device (Walker, Cane, Wheelchair, Crutches, etc.)? No PATIENT GENDER DATA: Female. status: : No status: NO. PATIENT RELEVANT IMPLANT DATA REVIEWED: Not Applicable PATIENT PRESENTS WITH AN IMPLANTABLE OR ATTACHED KNIFE SETTER GRINDER MACHINE: No RADIOLOGY DEPARTMENT: Mammography PERIPHERAL IV DATA: Not applicable SIGNED BY: Mary Grace Baig [employer] April 03, 2024 8:03 AM [facility] 02-22-2024 Note HNO ID: [id number] Author: EFREN MACIAS PT Service: ? Author Type: Physical Therapist Type: Progress Notes Filed: 02/22/2024 22:45 Note Text: Episode Visit Count: 2 Therapist That Will Accept/Oversee The Plan Of Care: Efren Macias PT Start of Care Date: 02/15/24 Onset Date: 12/30/23 Plan of Care Certification Date: 02/15/24 Next Certification Due Date: 03/14/24 Patient Identified by Name and Date of : Yes REHABILITATION AND SPORTS THERAPY PHYSICAL THERAPY TREATMENT NOTE ASSESSMENT: Rachel Holloway tolerated the session with no issues. She demonstrated improvements in Hallpike testing and pt reports some vertigo is resolved. The patient will continue to benefit from ongoing skilled physical therapy to progress toward set goals. PLAN FOR NEXT VISIT: Assess pt symptoms since evaluation, repeat positional testing and treat with CRM prn. HEP prn. Pt is scheduled to see vestibular specialist. SUBJECTIVE: Pt reports that overall she is better. She reports that her symptoms are less sensitive and takes more to trigger it. Despite the improvements, she has still has symptoms with bending over and returning to upright. She reports that her symptoms are tolerable. She reports that rolling to the right no longer triggers her symptoms. She reports that looking up still triggers her symptoms slightly. Pain: Post Treatment Pain Post Treatment Pain Level: No Change OBJECTIVE MEASURES WITH LEVEL OF FUNCTION: Positional Testing Right Hiram-Hallpike: Asymptomatic, No nystagmus Right Ear Down: Asymptomatic, No nystagmus Left Ear Down: Asymptomatic, No nystagmus TREATMENT: Canalith Repositionin: Pt was educated on findings of positional testing and rationale for plan of care recommendations. 2: Pt was educated on Shaw-Daroff home exercise and handout provided. Skilled Intervention: Professional judgment was used to determine specific treatment interventions based on assessment of symptoms. Patient education including handouts provided regarding self repostitioning techniques to be performed at home. Billing * Canalith Repositionin unit Skilled Treatment Time Minutes (timed and untimed codes): 25 Total Session Time (minutes): 25 Session Start Time : 1143 Session Stop Time : 1208 Efren Macias PT [facility] 02-22-2024 History of Presen t illness Narrative Episode Visit Count: 2 Therapist That Will Accept/Oversee The Plan Of Care: Efren Macias PT Start of Care Date: 02/15/24 Onset Date: 12/30/23 Plan of Care Certification Date: 02/15/24 Next Certification Due Date: 03/14/24 Patient Identified by Name and Date of : Yes REHABILITATION AND SPORTS THERAPY PHYSICAL THERAPY TREATMENT NOTE ASSESSMENT: Rachel Holloway tolerated the session with no issues. She demonstrated improvements in Hallpike testing and pt reports some vertigo is resolved. The patient will continue to benefit from ongoing skilled physical therapy to progress toward set goals. PLAN FOR NEXT VISIT: Assess pt symptoms since evaluation, repeat positional testing and treat with CRM prn. HEP prn. Pt is scheduled to see vestibular specialist. SUBJECTIVE: Pt reports that overall she is better. She reports that her symptoms are less sensitive and takes more to trigger it. Despite the improvements, she has still has symptoms with bending over and returning to upright. She reports that her symptoms are tolerable. She reports that rolling to the right no longer triggers her symptoms. She reports that looking up still triggers her symptoms slightly. Pain: Post Treatment Pain Post Treatment Pain Level: No Change OBJECTIVE MEASURES WITH LEVEL OF FUNCTION: Positional Testing Right Hiram-Hallpike: Asymptomatic, No nystagmus Right Ear Down: Asymptomatic, No nystagmus Left Ear Down: Asymptomatic, No nystagmus TREATMENT: Canalith Repositionin: Pt was educated on findings of positional testing and rationale for plan of care recommendations. 2: Pt was educated on Shaw-Daroff home exercise and handout provided. Skilled Intervention: Professional judgment was used to determine specific treatment interventions based on assessment of symptoms. Patient education including handouts provided regarding self repostitioning techniques to be performed at home. Billing * Canalith Repositionin unit Skilled Treatment Time Minutes (timed and untimed codes): 25 Total Session Time (minutes): 25 Session Start Time : 1143 Session Stop Time : 1208 Efren Macias PT documented in this encounter [facility] 02-15-2024 Note HNO ID: [id number] Author: EFREN MACIAS PT Service: ? Author Type: Physical Therapist Type: Progress Notes Filed: 02/15/2024 15:34 Note Text: Episode Visit Count: 1 Therapist That Will Accept/Oversee The Plan Of Care: Efren Macias PT Start of Care Date: 02/15/24 Onset Date: 12/30/23 Plan of Care Certification Date: 02/15/24 Next Certification Due Date: 03/14/24 Patient Identified by Name and Date of : Yes REHABILITATION AND SPORTS THERAPY PHYSICAL THERAPY EVALUATION PLAN OF CARE: Assessment: Rachel Holloway presents with diagnosis of vertigo/BPPV that interferes with bending, bed mobility (moshgiach) . The patient presents with impairments in ADL's, independence in exercise, overall function, posture, range of motion, and symptom management. PROMIS? (Patient-Reported Outcomes Measurement Information System) scores were reviewed and identified as a rehabilitation concern. Prognosis for therapy is Good due to: current objective clinical presentation, good overall health status, acuteness of condition, good support system/ coping skills. The patient will benefit from skilled therapy services to meet the goals established for this plan of care as noted below. Goals for Episode of Care: established 02/15/24 Patient will have negative positional testing for BPPV. Patient/family member will be independent in performing self PRT. Patient will verbalize the understanding of the diagnosis BPPV, how to recognize symptoms and what to do if they return. Patient will return to prior level of function with all activities of daily living with trace reports of dizziness. Patient will deny dizziness with rolling right, looking up, and bending. Patient Goals: eliminate symptoms Time Frame for Goals and Treatment : 03/14/24 Planned Interventions, Frequency, and Duration: Current Frequency: 1x/week Duration: 4 weeks Total Number of Visits Planned: 4 Planned Treatment Interventions: Canalith Repositioning Maneuvers (41220), Self-intermediate management ([id number]), Patient/Family/Caregiver Education, Body Mechanics Training, Therapeutic exercise (53445), Neuromuscular re-education (51939), Manual therapy (20267), Therapeutic activities (75653) PLAN FOR NEXT VISIT: Assess pt symptoms since evaluation, repeat positional testing and treat with CRM prn. HEP prn. Patient demonstrates good understanding of plan of care and treatment. The above goals and plan of care were discussed and agreed upon by patient/family. SUBJECTIVE: Pt reports intermittent vertigo that is triggered by certain quick movements or positions. She reports that currently, as long as she stops moving, her symptoms sherrill in less than one minute. She has reports that she is very good at identifying triggers and avoiding these. She reports that symptoms are triggered by bending over, quick head movements or rolling in supine to the right. She reports that she has never had these symptoms previously. Patient Goals: eliminate symptoms Functional Limitations: bending, bed mobility (moshgiach) Prior Level of Function: Independent without limitations Relevant History Employment: Retired Home Environment Patient Lives With: Spouse Assistance Available: 24-Hour Intake Information: Prescription present Previous Treatment: (medication that has helped) Concussion History of Concussion: No Vestibular Symptoms present for: weeks Symptom onset: sudden Imbalance: Yes Imbalance triggered by: Bending, Head movement, Position changes, Visual stimulus/complex background Fall Assessment: No falls Nausea: yes, at onset but not currently Motion Sickness: Current Headache: No Neck Symptoms: No Jaw Symptoms: No Ear Symptoms: Yes Description: fullness, clogged, blocked (Right only) Rating of current symptoms: 8/10 Location: right ear only Frequency: Constant Duration: all the time Symptoms worsened by: swallowing Symptoms improved by: nothing Hearing Changes: right ear only Hearing Changes Description: impaired in R ear Tinnitus: No recent changes Sleeping Position: Side lying right, Side lying left Sleep Affected by Symptoms: Not affected by dizziness History of Syncope: No History of Migraine: No Pain: Pain Pain Level: 0 Post Treatment Pain Post Treatment Pain Level: No Change PROMIS Scales 02/14/2024 Higher is Better Phys Func - Score 48 (within normal limits) Phys Func - Percentile 42 Self-Eff Symptom - Score 38 (Low) Self-Eff Symptom - Percentile 12 T-scores: mean of general population = 50. 5 points is clinically meaningfully difference Percentiles provide an indication of how the patient's score ranks in relation to the general population. Higher percentile rankings indicate better function/quality of life. 50th percentile is the average of the general population and indicates half of respondents had a worse score. OBJECTIVE MEASURES WITH LEVEL OF FU (more content not included)... [facility] 02-15-2024 History of Presen t illness Narrative Episode Visit Count: 1 Therapist That Will Accept/Oversee The Plan Of Care: Efren Macias PT Start of Care Date: 02/15/24 Onset Date: 12/30/23 Plan of Care Certification Date: 02/15/24 Next Certification Due Date: 03/14/24 Patient Identified by Name and Date of : Yes REHABILITATION AND SPORTS THERAPY PHYSICAL THERAPY EVALUATION PLAN OF CARE: Assessment: Rachel Holloway presents with diagnosis of vertigo/BPPV that interferes with bending, bed mobility (moshgiach) . The patient presents with impairments in ADL's, independence in exercise, overall function, posture, range of motion, and symptom management. PROMIS (Patient-Reported Outcomes Measurement Information System) scores were reviewed and identified as a rehabilitation concern. Prognosis for therapy is Good due to: current objective clinical presentation, good overall health status, acuteness of condition, good support system/ coping skills. The patient will benefit from skilled therapy services to meet the goals established for this plan of care as noted below. Goals for Episode of Care: established 02/15/24 Patient will have negative positional testing for BPPV. Patient/family member will be independent in performing self PRT. Patient will verbalize the understanding of the diagnosis BPPV, how to recognize symptoms and what to do if they return. Patient will return to prior level of function with all activities of daily living with trace reports of dizziness. Patient will deny dizziness with rolling right, looking up, and bending. Patient Goals: eliminate symptoms Time Frame for Goals and Treatment : 03/14/24 Planned Interventions, Frequency, and Duration: Current Frequency: 1x/week Duration: 4 weeks Total Number of Visits Planned: 4 Planned Treatment Interventions: Canalith Repositioning Maneuvers (16886), Self-intermediate management (67979), Patient/Family/Caregiver Education, Body Mechanics Training, Therapeutic exercise (00382), Neuromuscular re-education (39377), Manual therapy (55725), Therapeutic activities (93109) PLAN FOR NEXT VISIT: Assess pt symptoms since evaluation, repeat positional testing and treat with CRM prn. HEP prn. Patient demonstrates good understanding of plan of care and treatment. The above goals and plan of care were discussed and agreed upon by patient/family. SUBJECTIVE: Pt reports intermittent vertigo that is triggered by certain quick movements or positions. She reports that currently, as long as she stops moving, her symptoms sherrill in less than one minute. She has reports that she is very good at identifying triggers and avoiding these. She reports that symptoms are triggered by bending over, quick head movements or rolling in supine to the right. She reports that she has never had these symptoms previously. Patient Goals: eliminate symptoms Functional Limitations: bending, bed mobility (moshgiach) Prior Level of Function: Independent without limitations Relevant History Employment: Retired Home Environment Patient Lives With: Spouse Assistance Available: 24-Hour Intake Information: Prescription present Previous Treatment: (medication that has helped) Concussion History of Concussion: No Vestibular Symptoms present for: weeks Symptom onset: sudden Imbalance: Yes Imbalance triggered by: Bending, Head movement, Position changes, Visual stimulus/complex background Fall Assessment: No falls Nausea: yes, at onset but not currently Motion Sickness: Current Headache: No Neck Symptoms: No Jaw Symptoms: No Ear Symptoms: Yes Description: fullness, clogged, blocked (Right only) Rating of current symptoms: 8/10 Location: right ear only Frequency: Constant Duration: all the time Symptoms worsened by: swallowing Symptoms improved by: nothing Hearing Changes: right ear only Hearing Changes Description: impaired in R ear Tinnitus: No recent changes Sleeping Position: Side lying right, Side lying left Sleep Affected by Symptoms: Not affected by dizziness History of Syncope: No History of Migraine: No Pain: Pain Pain Level: 0 Post Treatment Pain Post Treatment Pain Level: No Change PROMIS Scales 02/14/2024 Higher is Better Phys Func - Score 48 (within normal limits) Phys Func - Percentile 42 Self-Eff Symptom - Score 38 (Low) Self-Eff Symptom - Percentile 12 T-scores: mean of general population = 50. 5 points is clinically meaningfully difference Percentiles provide an indication of how the patient's score ranks in relation to the general population. Higher percentile rankings indicate better function/quality of life. 50th percentile is the average of the general population and indicates half of respondents had a worse score. OBJECTIVE MEASURES WITH LEVEL OF FUNCTION: Positional Testing Right [place]-Hallpike: Symptomatic, Less than 60 seconds (with minimal nystagmus and very mild vertigo symptoms) Left [place]-Hallpike: Asymptomatic, No nystagmus Cervical Spine ROM Cervical ROM : Limitation AROM Cervical Extension AROM: Moderate limitation Vitals BP: 135/86 Pulse: 69 Education: Education Learning Preferences: Demonstration, Explanation, Performance, Printed Materials Barriers: None Learning/educational needs: Home exercise program, Plan of Care, Posture, Body Mechanics, Procedure / Surgery Education Provided: Yes, see treatment interventions for education provided Education Provided To: Patient Education Mode/Type: Demonstration, Explanation/Discussion, Performance Response to Education/Teach Back: States/Identifies, Requires Review/Additional Education TREATMENT: PT Treatment Interventions: Canalith Repositioning Evaluation Canalith Repositionin: After positive Hallpike on R, CRM for R posterior canal. Then Hallpike was repeated and again positive and therefore CRM for R posterior canal was repeated. Pt was thoroughly educated on the process for test and treatment of posterior canalithiasis. She was educated on the expected outcome and procedures that will be followed in future PT sessions. She was educated on the anatomy and function of vestibular system, likely etiology of symptoms and rationale for recommended plan of care. She was educated on the possibility of a referral to a vestibular PT specialist. Skilled Intervention: Professional judgment was used to determine specific treatment interventions based on assessment of symptoms. Physically assisted patient through each step of repositioning. Verbal and tactile cues provided to patient to assist in moving between each position of maneuver in correct sequence. Billing * Evaluation Moderate Complexity: 1 Unit * Canalith Repositionin unit Skilled Treatment Time Minutes (timed and untimed codes): 51 Total Session Time (minutes): 51 Session Start Time : 1316 Session Stop Time : 1407 Efren Macias PT documented in this encounter [facility] 01-25-2024 Telephone encounter Note Prescription Refill Information The patient has been identified by name and date of : Yes Caregiver verified no other encounters exist for this prescription request: Yes Caregiver confirmed with patient/requestor that no other refills are due, in the near future, with this provider at this time: Yes The last office visit in the department: Does the patient have a future office visit with this provider/department: Yes 07/24/24 Requested Prescriptions Pending Prescriptions Disp Refills insulin glargine-yfgn (SEMGLEE,INSULIN GLARG-YFGN,PEN) 100 unit/mL (3 mL) insulin pen 10 Each 4 Sig: Inject 24 Units subcutaneously daily at bedtime. Faina Almendarez LPN January 25, 2024 7:57 AM [facility] 01-25-2024 Miscellaneous Notes Prescription Refill Information The patient has been identified by name and date of : Yes Caregiver verified no other encounters exist for this prescription request: Yes Caregiver confirmed with patient/requestor that no other refills are due, in the near future, with this provider at this time: Yes The last office visit in the department: Does the patient have a future office visit with this provider/department: Yes 07/24/24 Requested Prescriptions Pending Prescriptions Disp Refills insulin glargine-yfgn (SEMGLEE,INSULIN GLARG-YFGN,PEN) 100 unit/mL (3 mL) insulin pen 10 Each 4 Sig: Inject 24 Units subcutaneously daily at bedtime. Faina Almendarez LPN January 25, 2024 7:57 AM documented in this encounter [facility] 01-19-2024 Instructions Iglesia Messina MD - 01/19/2024 9:32 AM EDT -Vestibular therapy consultation has been scheduled to address your vertigo episodes. - Continue to have meclizine on hand for severe episodes, using it as needed when rest is possible due to its sedative effects. - Refill on azelastine nasal spray has been sent to your pharmacy. - Consider switching to vitamin D gel caps for potentially better absorption once your current supply runs out. - Continue monitoring your blood sugar levels and making dietary adjustments as needed. - Keep taking good care of your feet, avoiding going barefoot and wearing supportive shoes instead of flip-flops. - Flu shot and COVID vaccine can be obtained at [facility] at your convenience. - Urine sample will be collected today to check for protein leaking through kidneys. - Mammogram is due in March; the order has been placed, and you can schedule it at your convenience. - Next appointment is scheduled for July. documented in this encounter [facility] 01-19-2024 Note HNO ID: [id number] Author: IGLESIA MESSINA MD Service: ? Author Type: Physician Type: Progress Notes Filed: 02/28/2024 23:13 Note Text: This note was created using [employer]. Subjective Rachel Holloway is a 68 year old female. Patient presents with: F/U 6 months: Labs prior SUBJECTIVE: Rachel Hollowya is a 68 year old year old lady here today for 6 month follow up appointment for review of medical conditions. The patient is a 68-year-old female with a history of DM, HTN, and HLD, presenting for a regular 6-month checkup. She also reports a recent episode of vertigo. The patient was seen in the ER on the for vertigo. She describes the vertigo as a spinning sensation that occurs when she bends over or moves her head too quickly. This was her first experience with vertigo of this severity, stating, I've never had that like that. The episode was so intense that she had to close her eyes, could not move her head, and could barely walk. The vertigo began suddenly when she turned to get out of the car after attending a fair. By the time she was in the house, she reports she couldn't function. She has a history of feeling like her ear is plugged, more so on one side than the other, but denies any ear infections. She has tried nasal spray and sinus medication without relief. She was prescribed meclizine in the ER, but has only taken it once, stating that the vertigo usually passes quickly. She manages the vertigo by moving slowly to avoid triggering it. She denies any vision issues or nystagmus. She also reports a history of allergies, which have been particularly bad this year. She notes that her daughter and have also been affected, and she attributes this to the high pollen count. She is currently taking several medications, including vitamin D 1000 units daily, atenolol, glipizide, glargine, metformin, omeprazole, and pravastatin. She requests a refill for her nasal spray. She denies any issues with her current medications. She has made dietary changes to manage her DM, noting that she has reduced her intake of noodles, potatoes, and corn. She reports that these changes have helped her lose weight. She has not been able to exercise outside due to the heat and her allergies, but she has a treadmill at home. She denies any swelling in her feet and reports that she does not go barefoot as much as she used to. PAST MEDICAL HISTORY Diagnosis Date Arthritis Cough Esophageal reflux Neurogenic bladder 05/2018 Had urodynamics and cystoscopy by Dr. Cortez, she recommends interstim Other and unspecified hyperlipidemia Recurrent UTI Type II or unspecified type diabetes mellitus without mention of complication, not stated as uncontrolled Unspecified essential hypertension mild Current Outpatient Medications Medication Sig meclizine (ANTIVERT) 25 mg tab Take 25 mg by mouth four times a day as needed. losartan (COZAAR) 25 mg tablet Take 1 tablet by mouth once daily. metFORMIN ER (GLUCOPHAGE XR) 500 mg 24 hr tablet Take 1 tablet by mouth two times a day. omeprazole (PRILOSEC) 20 mg capsule Take 1 capsule by mouth once daily. pravastatin (PRAVACHOL) 20 mg tablet Take 1 tablet by mouth daily at bedtime. blood sugar diagnostic (BLOOD GLUCOSE TEST) test strip One Touch Verio. Test blood sugar(s) 2 times daily or as instructed. Dx: Type 2 DM - Controlled E11.9 Insulin: Yes. insulin needles, DISPOSABLE, (PEN NEEDLE) 31 gauge x 5/16 Use one needle per dose. 1 per day. Diagnosis: 250.02 glipiZIDE (GLUCOTROL) 10 mg tablet Take 1 tablet (10 mg) by mouth two times a day. insulin glargine-yfgn (SEMGLEE,INSULIN GLARG-YFGN,PEN) 100 unit/mL (3 mL) insulin pen Inject 24 Units subcutaneously daily at bedtime. atenolol (TENORMIN) 25 mg tablet Take 1 tablet by mouth once daily. Azelastine (ASTEPRO ALLERGY) 205.5 mcg (0.15 %) spry Use 1 [place] in each nostril once daily. Lancets lancets Test blood sugar(s) 2 times daily or as instructed. Dx: Type 2 DM - Controlled E11.9 Insulin: Yes estradiol (ESTRACE) 0.01 % (0.1 mg/gram) vaginal cream use vaginally once or twice weekly as directed Cholecalciferol, Vitamin D3, 25 mcg (1,000 unit) cap Take 1 capsule by mouth once daily. Lancets (ACCU-CHEK SOFTCLIX LANCETS) lancets Use as instructed. Dx: E11.9, Z79.4 . Insulin: Yes. hydroxychloroquine (PLAQUENIL) 200 mg tablet Take 1 tablet by mouth twice daily. (Dr. Albright) aspirin, enteric coated (ASPIRIN, ENTERIC COATED) 81 mg EC tablet Take 81 mg by mouth once daily. MULTIVITAMIN TAB Take by mouth. Ca/D3/mag ox/zinc/newspaper copy editor/shanelle/bor (CALCIUM 600-D3 PLUS ORAL) Take 1 capsule by mouth once daily. (Patient not taking: Reported on 01/19/2024) No current facility-administered medications for this visit. Review of Systems Objective BP 122/66 Pulse 68 Temp 36.2 ?C (97.1 ?F) Resp 18 Wt 81.2 kg (179 lb 0.2 oz) SpO2 96% BMI 30.73 kg/m? Last 5 Encounter W (more content not included)... [facility] 01-19-2024 History of Presen t illness Narrative This note was created using [employer]. Subjective Rachel Holloway is a 68 year old female. Patient presents with: F/U 6 months: Labs prior SUBJECTIVE: Rachel Holloway is a 68 year old year old lady here today for 6 month follow up appointment for review of medical conditions. The patient is a 68-year-old female with a history of DM, HTN, and HLD, presenting for a regular 6-month checkup. She also reports a recent episode of vertigo. The patient was seen in the ER on the for vertigo. She describes the vertigo as a spinning sensation that occurs when she bends over or moves her head too quickly. This was her first experience with vertigo of this severity, stating, I've never had that like that. The episode was so intense that she had to close her eyes, could not move her head, and could barely walk. The vertigo began suddenly when she turned to get out of the car after attending a fair. By the time she was in the house, she reports she couldn't function. She has a history of feeling like her ear is plugged, more so on one side than the other, but denies any ear infections. She has tried nasal spray and sinus medication without relief. She was prescribed meclizine in the ER, but has only taken it once, stating that the vertigo usually passes quickly. She manages the vertigo by moving slowly to avoid triggering it. She denies any vision issues or nystagmus. She also reports a history of allergies, which have been particularly bad this year. She notes that her daughter and have also been affected, and she attributes this to the high pollen count. She is currently taking several medications, including vitamin D 1000 units daily, atenolol, glipizide, glargine, metformin, omeprazole, and pravastatin. She requests a refill for her nasal spray. She denies any issues with her current medications. She has made dietary changes to manage her DM, noting that she has reduced her intake of noodles, potatoes, and corn. She reports that these changes have helped her lose weight. She has not been able to exercise outside due to the heat and her allergies, but she has a treadmill at home. She denies any swelling in her feet and reports that she does not go barefoot as much as she used to. PAST MEDICAL HISTORY Diagnosis Date Arthritis Cough Esophageal reflux Neurogenic bladder 05/2018 Had urodynamics and cystoscopy by Dr. Cortez, she recommends interstim Other and unspecified hyperlipidemia Recurrent UTI Type II or unspecified type diabetes mellitus without mention of complication, not stated as uncontrolled Unspecified essential hypertension mild Current Outpatient Medications Medication Sig meclizine (ANTIVERT) 25 mg tab Take 25 mg by mouth four times a day as needed. losartan (COZAAR) 25 mg tablet Take 1 tablet by mouth once daily. metFORMIN ER (GLUCOPHAGE XR) 500 mg 24 hr tablet Take 1 tablet by mouth two times a day. omeprazole (PRILOSEC) 20 mg capsule Take 1 capsule by mouth once daily. pravastatin (PRAVACHOL) 20 mg tablet Take 1 tablet by mouth daily at bedtime. blood sugar diagnostic (BLOOD GLUCOSE TEST) test strip One Touch Verio. Test blood sugar(s) 2 times daily or as instructed. Dx: Type 2 DM - Controlled E11.9 Insulin: Yes. insulin needles, DISPOSABLE, (PEN NEEDLE) 31 gauge x 5/16 Use one needle per dose. 1 per day. Diagnosis: 250.02 glipiZIDE (GLUCOTROL) 10 mg tablet Take 1 tablet (10 mg) by mouth two times a day. insulin glargine-yfgn (SEMGLEE,INSULIN GLARG-YFGN,PEN) 100 unit/mL (3 mL) insulin pen Inject 24 Units subcutaneously daily at bedtime. atenolol (TENORMIN) 25 mg tablet Take 1 tablet by mouth once daily. Azelastine (ASTEPRO ALLERGY) 205.5 mcg (0.15 %) spry Use 1 [place] in each nostril once daily. Lancets lancets Test blood sugar(s) 2 times daily or as instructed. Dx: Type 2 DM - Controlled E11.9 Insulin: Yes estradiol (ESTRACE) 0.01 % (0.1 mg/gram) vaginal cream use vaginally once or twice weekly as directed Cholecalciferol, Vitamin D3, 25 mcg (1,000 unit) cap Take 1 capsule by mouth once daily. Lancets (ACCU-CHEK SOFTCLIX LANCETS) lancets Use as instructed. Dx: E11.9, Z79.4 . Insulin: Yes. hydroxychloroquine (PLAQUENIL) 200 mg tablet Take 1 tablet by mouth twice daily. (Dr. Albright) aspirin, enteric coated (ASPIRIN, ENTERIC COATED) 81 mg EC tablet Take 81 mg by mouth once daily. MULTIVITAMIN TAB Take by mouth. Ca/D3/mag ox/zinc/newspaper copy editor/shanelle/bor (CALCIUM 600-D3 PLUS ORAL) Take 1 capsule by mouth once daily. (Patient not taking: Reported on 01/19/2024) No current facility-administered medications for this visit. Review of Systems Objective BP 122/66 Pulse 68 Temp 36.2 C (97.1 F) Resp 18 Wt 81.2 kg (179 lb 0.2 oz) SpO2 96% BMI 30.73 kg/m Last 5 Encounter Wt Readings: Date: Wt: 01/19/2024 81.2 kg (179 lb 0.2 oz) 07/20/2023 84.8 kg (187 lb) 02/18/2023 83.3 kg (183 lb 9.6 oz) 01/04/2023 80.7 kg (178 lb) 08/25/2022 83 kg (183 lb) No waist measurement recorded Estimated body mass index is 30.73 kg/m as calculated from the following: Height as of 07/20/23: 162.6 cm (5' 4). Weight as of this encounter: 81.2 kg (179 lb 0.2 oz). Last 5 Encounter BP Readings: Date: BP: 01/19/2024 122/66 07/20/2023 128/76 02/18/2023 136/78 01/04/2023 124/80 08/25/2022 124/70 Physical Exam Constitutional: Appearance: Normal appearance. HENT: Head: Normocephalic. Eyes: Conjunctiva/sclera: Conjunctivae normal. Cardiovascular: Rate and Rhythm: Normal rate and regular rhythm. Heart sounds: Normal heart sounds. Pulmonary: Effort: Pulmonary effort is normal. Breath sounds: Normal breath sounds. Musculoskeletal: Right lower leg: No edema. Left lower leg: No edema. Feet: Right foot: Protective Sensation: 10 sites tested. 10 sites sensed. Skin integrity: Skin integrity normal. Toenail Condition: Right toenails are normal. Left foot: Protective Sensation: 10 sites tested. 10 sites sensed. Skin integrity: Skin integrity normal. Toenail Condition: Left toenails are normal. Skin: General: Skin is warm and dry. Neurological: General: No focal deficit present. Mental Status: She is alert and oriented to person, place, and time. Psychiatric: Attention and Perception: Attention and perception normal. Mood and Affect: Mood and affect normal. Speech: Speech normal. Behavior: Behavior normal. Thought Content: Thought content normal. Cognition and Memory: Cognition and memory normal. Judgment: Judgment normal. Latest Ref Rng 12/31/2022 07/09/2023 01/14/2024 Protein, Total 6.3 - 8.0 g/dL 7.4 7.5 7.3 Albumin 3.9 - 4.9 g/dL 4.3 4.2 4.3 Calcium 8.5 - 10.2 mg/dL 9.7 9.6 9.5 Bilirubin, Total 0.2 - 1.3 mg/dL 0.3 0.3 0.3 Alkaline Phosphatase 34 - 123 U/L 88 93 94 AST 13 - 35 U/L 22 21 23 ALT 7 - 38 U/L 21 20 23 Glucose 74 - 99 mg/dL 157 (H) 167 (H) 104 (H) BUN 7 - 21 mg/dL 8 10 11 Creatinine 0.58 - 0.96 mg/dL 0.75 0.74 0.72 Sodium 136 - 144 mmol/L 138 138 139 Potassium 3.7 - 5.1 mmol/L 4.1 3.9 4.1 Chloride 98 - 107 mmol/L 99 101 101 CO2 22 - 30 mmol/L 29 30 28 Anion Gap 8 - 15 mmol/L 10 7 (L) 10 eGFR >=60 mL/min/1.73m 87 88 91 WBC 3.70 - 11.00 k/uL 5.06 6.24 7.35 RBC 3.90 - 5.20 m/uL 4.46 4.64 4.45 Hemoglobin 11.5 - 15.5 g/dL 13.3 13.7 13.4 Hematocrit 36.0 - 46.0 % 40.0 41.3 39.8 MCV 80.0 - 100.0 fL 89.7 89.0 89.4 MCH 26.0 - 34.0 pg 29.8 29.5 30.1 MCHC 30.5 - 36.0 g/dL 33.3 33.2 33.7 RDW-CV 11.5 - 15.0 % 13.3 12.9 13.1 Platelet Count 150 - 400 k/uL 258 287 288 MPV 9.0 - 12.7 fL 9.4 9.6 9.7 Absolute nRBC <0.01 k/uL <0.01 <0.01 <0.01 Cholesterol, Total <200 mg/dL 167 181 180 Triglyceride <150 mg/dL 151 (H) 130 129 HDL Cholesterol >39 mg/dL 78 81 75 Non HDL Cholesterol <130 mg/dL 89 100 105 Fasting Time hrs 13 12 13 VLDL Cholesterol <30 mg/dL 30 (H) 26 26 TC:HDL Ratio <5.10 2.14 2.23 2.40 LDL Cholesterol <100 mg/dL 59 74 79 LDL:HDL Ratio <2.54 0.76 0.91 1.05 Creatinine, Ur Random (UCRR) 20.0 - 300.0 mg/dL 138.3 Albumin, Urine Random mg/L 22.1 Albumin/Creat Ratio <30 mg/g 16 Hemoglobin A1C 4.3 - 5.6 % 7.2 (H) 7.9 (H) 7.4 (H) Estimated Average Glucose mg/dL 160 180 166 Vitamin D 25 Hydroxy 31.0 - 80.0 ng/mL 32.1 26.0 (L) 32.8 Magnesium 1.7 - 2.3 mg/dL 1.9 Legend: (H) High (L) Low Assessment and Plan # Controlled type 2 diabetes mellitus without complication, with long-term current use of insulin (HCC) (E11.9) - Recent labs show improvement in A1c from 7.9% to 7.4%. - Fasting glucose level at 104 mg/dL. - Diabetic foot exam performed; no abnormalities noted. - Continue current medications: glipizide, glargine, and metformin. - Encouraged continuation of dietary modifications and regular physical activity. - Follow-up in six months with repeat labs. # Benign paroxysmal positional vertigo, unspecified laterality (H81.10) - Recent episode of severe vertigo; symptoms triggered by rapid head movements. - Referred to vestibular physical therapy at the specialty center for targeted exercises. - Continue use of meclizine as needed for severe episodes. # Post-nasal drainage (R09.82) # Seasonal allergic rhinitis, unspecified trigger (J30.2) - Symptoms managed with azelastine nasal spray. - Refilled azelastine nasal spray; three-month supply sent via mail order. - Discussed environmental allergen exposure; advised measures to minimize exposure. # Essential hypertension (I10) - Blood pressure well-controlled on current regimen. - Continue atenolol and losartan. # Vitamin D deficiency (E55.9) - Recent lab shows vitamin D level improved to 32.8 ng/mL. - Continue vitamin D 1000 units daily. - Advised switching to gel caps for better absorption. # Mixed hyperlipidemia (E78.2) - Lipid panel within target range: HDL 75 mg/dL, LDL 79 mg/dL. - Continue pravastatin. # Encounter for screening mammogram for breast cancer (Z12.31) - Mammogram due in March; order placed. # Screening for depression (Z13.31) # Encounter for screening examination for other mental health and behavioral disorders (Z13.39) - Screening questions completed; no concerns reported. # Encounter for long-term current use of medication (Z79.899) - Reviewed and refilled necessary medications. - Next medication review scheduled for July. Iglesia Messina MD documented in this encounter [facility] 10-16-2023 Telephone encounter Note The following approved medication requests have been transmitted electronically. Requested Prescriptions Pending Prescriptions Disp Refills losartan (COZAAR) 25 mg tablet 90 tablet 3 Sig: Take 1 tablet by mouth once daily. Iglesia Messina MD [facility] 10-16-2023 Miscellaneous Notes The following approved medication requests have been transmitted electronically. Requested Prescriptions Pending Prescriptions Disp Refills losartan (COZAAR) 25 mg tablet 90 tablet 3 Sig: Take 1 tablet by mouth once daily. Iglesia Messina MD Prescription Refill Information The patient has been identified by name and date of : Yes Caregiver verified no other encounters exist for this prescription request: Yes Caregiver confirmed with patient/requestor that no other refills are due, in the near future, with this provider at this time: Yes The last office visit in the department: 07/20/2023 Does the patient have a future office visit with this provider/department: Yes Requested Prescriptions Pending Prescriptions Disp Refills losartan (COZAAR) 25 mg tablet 90 tablet 3 Sig: Take 1 tablet by mouth once daily. Rich Song MA October 16, 2023 10:28 AM documented in this encounter [facility] 10-16-2023 Telephone encounter Note Prescription Refill Information The patient has been identified by name and date of : Yes Caregiver verified no other encounters exist for this prescription request: Yes Caregiver confirmed with patient/requestor that no other refills are due, in the near future, with this provider at this time: Yes The last office visit in the department: 07/20/2023 Does the patient have a future office visit with this provider/department: Yes Requested Prescriptions Pending Prescriptions Disp Refills losartan (COZAAR) 25 mg tablet 90 tablet 3 Sig: Take 1 tablet by mouth once daily. Rich Song MA October 16, 2023 10:28 AM [facility] 07-20-2023 Instructions Iglesia Messina MD - 07/20/2023 4:44 PM EDT May increase Vitamin D3 by 2000 to 4000 units daily. documented in this encounter [facility] 07-20-2023 History of Presen t illness Narrative This note was created using [employer]. Subjective Rachel Holloway is a 68 year old female. Patient presents with: 6 mo follow up SUBJECTIVE: Rachel Holloway is a 68 year old year old lady here today for 6 month follow up appointment for review of medical conditions. [facility]. See assessment and plan for other issues addressed. PAST MEDICAL HISTORY Diagnosis Date Arthritis Cough Esophageal reflux Neurogenic bladder 05/2018 Had urodynamics and cystoscopy by Dr. Cortez, she recommends interstim Other and unspecified hyperlipidemia Recurrent UTI Type II or unspecified type diabetes mellitus without mention of complication, not stated as uncontrolled Unspecified essential hypertension mild Current Outpatient Medications Medication Sig metFORMIN ER (GLUCOPHAGE XR) 500 mg 24 hr tablet Take 1 tablet by mouth two times a day. omeprazole (PRILOSEC) 20 mg capsule Take 1 capsule by mouth once daily. pravastatin (PRAVACHOL) 20 mg tablet Take 1 tablet by mouth daily at bedtime. blood sugar diagnostic (BLOOD GLUCOSE TEST) test strip One Touch Verio. Test blood sugar(s) 2 times daily or as instructed. Dx: Type 2 DM - Controlled E11.9 Insulin: Yes. insulin needles, DISPOSABLE, (PEN NEEDLE) 31 gauge x 5/16 Use one needle per dose. 1 per day. Diagnosis: 250.02 glipiZIDE (GLUCOTROL) 10 mg tablet Take 1 tablet (10 mg) by mouth two times a day. insulin glargine-yfgn (SEMGLEE,INSULIN GLARG-YFGN,PEN) 100 unit/mL (3 mL) insulin pen Inject 24 Units subcutaneously daily at bedtime. atenolol (TENORMIN) 25 mg tablet Take 1 tablet by mouth once daily. Azelastine (ASTEPRO ALLERGY) 205.5 mcg (0.15 %) spry Use 1 [place] in each nostril once daily. losartan (COZAAR) 25 mg tablet Take 1 tablet by mouth once daily. Lancets lancets Test blood sugar(s) 2 times daily or as instructed. Dx: Type 2 DM - Controlled E11.9 Insulin: Yes estradiol (ESTRACE) 0.01 % (0.1 mg/gram) vaginal cream use vaginally once or twice weekly as directed Cholecalciferol, Vitamin D3, 25 mcg (1,000 unit) cap Take 1 capsule by mouth once daily. Ca/D3/mag ox/zinc/newspaper copy editor/shanelle/bor (CALCIUM 600-D3 PLUS ORAL) Take 1 capsule by mouth once daily. Lancets (ACCU-CHEK SOFTCLIX LANCETS) lancets Use as instructed. Dx: E11.9, Z79.4 . Insulin: Yes. hydroxychloroquine (PLAQUENIL) 200 mg tablet Take 1 tablet by mouth twice daily. (Dr. Albright) aspirin, enteric coated (ASPIRIN, ENTERIC COATED) 81 mg EC tablet Take 81 mg by mouth once daily. MULTIVITAMIN TAB Take by mouth. No current facility-administered medications for this visit. Review of Systems Objective BP 128/76 Pulse 80 Resp 16 Ht 162.6 cm (5' 4) Wt 84.8 kg (187 lb) BMI 32.10 kg/m Physical Exam Constitutional: Appearance: Normal appearance. HENT: Head: Normocephalic. Eyes: Conjunctiva/sclera: Conjunctivae normal. Cardiovascular: Rate and Rhythm: Normal rate and regular rhythm. Heart sounds: Normal heart sounds. Pulmonary: Effort: Pulmonary effort is normal. Breath sounds: Normal breath sounds. Musculoskeletal: Right lower leg: No edema. Left lower leg: No edema. Skin: General: Skin is warm and dry. Neurological: General: No focal deficit present. Mental Status: She is alert and oriented to person, place, and time. Psychiatric: Attention and Perception: Attention and perception normal. Mood and Affect: Mood and affect normal. Speech: Speech normal. Behavior: Behavior normal. Thought Content: Thought content normal. Judgment: Judgment normal. Latest Ref Rng 11/01/2020 05/26/2021 05/19/2022 12/31/2022 07/09/2023 Protein, Total 6.3 - 8.0 g/dL 7.4 7.5 Albumin 3.9 - 4.9 g/dL 4.3 4.2 Calcium 8.5 - 10.2 mg/dL 9.7 9.7 9.6 Bilirubin, Total 0.2 - 1.3 mg/dL 0.3 0.3 Alkaline Phosphatase 34 - 123 U/L 88 93 AST 13 - 35 U/L 22 21 ALT 7 - 38 U/L 21 20 Glucose 74 - 99 mg/dL 180 (H) 157 (H) 167 (H) BUN 7 - 21 mg/dL 12 8 10 Creatinine 0.58 - 0.96 mg/dL 0.74 0.75 0.74 Sodium 136 - 144 mmol/L 136 138 138 Potassium 3.7 - 5.1 mmol/L 4.3 4.1 3.9 Chloride 97 - 105 mmol/L 98 99 101 CO2 22 - 30 mmol/L 26 29 30 Anion Gap 9 - 18 mmol/L 12 10 7 (L) eGFR >=60 mL/min/1.73m 87 88 eGFR- >60 eGFR-All Other Races . >60 WBC 3.70 - 11.00 k/uL 6.43 5.06 6.24 RBC 3.90 - 5.20 m/uL 4.42 4.46 4.64 Hemoglobin 11.5 - 15.5 g/dL 13.4 13.3 13.7 Hematocrit 36.0 - 46.0 % 39.3 40.0 41.3 MCV 80.0 - 100.0 fL 88.9 89.7 89.0 MCH 26.0 - 34.0 pg 30.3 29.8 29.5 MCHC 30.5 - 36.0 g/dL 34.1 33.3 33.2 RDW-CV 11.5 - 15.0 % 12.9 13.3 12.9 Platelet Count 150 - 400 k/uL 319 258 287 MPV 9.0 - 12.7 fL 9.8 9.4 9.6 Absolute nRBC <0.01 k/uL <0.01 <0.01 <0.01 Cholesterol, Total <200 mg/dL 165 167 167 181 Triglyceride <150 mg/dL 167 (H) 109 151 (H) 130 HDL Cholesterol >39 mg/dL 72 84 78 81 LDL Cholesterol <100 mg/dL 60 61 59 74 Non HDL Cholesterol <130 mg/dL 93 83 89 100 Fasting Time hrs 10 10 13 12 VLDL Cholesterol <30 mg/dL 33 (H) 22 30 (H) 26 TC:HDL Ratio <5.10 2.29 1.99 2.14 2.23 LDL:HDL Ratio <2.54 0.83 0.73 0.76 0.91 Creatinine, Ur Random (UCRR) 20.0 - 300.0 mg/dL 141.2 138.3 Albumin, Urine Random mg/L <12.0 22.1 Albumin/Creat Ratio <30 mg/g Not calculated 16 Hemoglobin A1C 4.3 - 5.6 % 7.4 (H) 7.5 (H) 7.0 (H) 7.2 (H) 7.9 (H) Estimated Average Glucose mg/dL 166 169 154 160 180 Vitamin D 25 Hydroxy 31.0 - 80.0 ng/mL 34.6 33.7 32.1 26.0 (L) Legend: (H) High (L) Low Assessment and Plan Encounter Diagnosis ICD-10-CM 1. Controlled type 2 diabetes mellitus without complication, with long-term current use of insulin (HCC) E11.9 metFORMIN ER (GLUCOPHAGE XR) 500 mg 24 hr tablet Z79.4 blood sugar diagnostic (BLOOD GLUCOSE TEST) test strip COMP METABOLIC PANEL HGB A1C HgA1C still in 7 range. Continue present management but avoid letting sugars get higher 2. Gastroesophageal reflux disease without esophagitis K21.9 omeprazole (PRILOSEC) 20 mg capsule Needing to take PPI. Continue present management and monitor labs 3. Mixed hyperlipidemia E78.2 pravastatin (PRAVACHOL) 20 mg tablet LIPID PANEL BASIC All to goals. Stay on same dose statin 4. Vitamin D deficiency E55.9 VITAMIN D 25 HYDROXY Dropped back <30. Encouraged to take supplement routinely. Will adjust dose as indicated 5. Class 1 obesity due to excess calories with body mass index (BMI) of 32.0 to 32.9 in adult, unspecified whether serious comorbidity present E66.09 Z68.32 Weight creeping up again. Keep working on healthier diet, regular exercise and weight loss 6. Encounter for long-term current use of medication Z79.899 COMP METABOLIC PANEL CBC LIPID PANEL BASIC HGB A1C VITAMIN D 25 HYDROXY MAGNESIUM BLD 7. Encounter for immunization Z23 RSV PRINTED PHARMACY INSTRUCTIONS SHINGRIX PRINTED PHARMACY INSTRUCTIONS Above issues addressed with patient. Patient involved in shared decision making for management of medical issues. History and medications reviewed. Epic updated as needed Refills and/or prescriptions taken care of and meds adjusted as indicated after reviewed history, exam and labs. Health Maintenance reviewed. Updated record and/or ordered tests as recorded. Encouraged on efforts at healthy diet and regular exercise and adequate sleep. Needs to keep working on diet and exercise with lifestyle changes for effective weight loss as well as control of DM, and control of BP and lipids. Iglesia Messina MD documented in this encounter [facility] 07-05-2023 Miscellaneous Notes Patient notified Glipizide was escripted to [facility], 07/01/2023. Patient states she did get a conformation that something had been shipped, reviewed with Patient all the RXs done on 07/01/2023. Parisa Bills LPN documented in this encounter [facility] 07-01-2023 Miscellaneous Notes Patient has been identified by name and date of : Yes, Provider Date 07/01/23 Time 3:04 pm Patient phones for refill(s): Requested Prescriptions Pending Prescriptions Disp Refills atenolol (TENORMIN) 25 mg tablet 90 tablet 3 Sig: Take 1 tablet by mouth once daily. Date of last office visit in primary care: 01/04/2023 Date of next office visit in primary care: 07/20/2023 Thank you. Tequila Do LPN. documented in this encounter [facility] 07-01-2023 Miscellaneous Notes Patient has been identified by name and date of : Yes, Provider Dr. Messina Date 07/01/23 Time 3:02 pm Patient phones for refill(s): Requested Prescriptions Pending Prescriptions Disp Refills blood sugar diagnostic (BLOOD GLUCOSE TEST) test strip 200 Strip 3 Sig: Test blood sugar(s) 2 times daily or as instructed. Dx: Type 2 DM - Controlled E11.9 Insulin: Yes Date of last office visit in primary care: 01/04/2023 Date of next office visit in primary care: 07/20/23 Thank you. Tequila Do LPN. documented in this encounter [facility] 07-01-2023 Miscellaneous Notes Patient has been identified by name and date of : Yes, Provider Dr. Messina Date 07/01/23 Time 3:01 pm Patient phones for refill(s): Requested Prescriptions Pending Prescriptions Disp Refills insulin needles, DISPOSABLE, (PEN NEEDLE) 31 gauge x 5/16 100 Each 3 Sig: Use one needle per dose. 1 per day. Diagnosis: 250.02 glipiZIDE (GLUCOTROL) 10 mg tablet 180 tablet 3 Sig: Take 1 tablet (10 mg) by mouth two times a day. insulin glargine-yfgn (SEMGLEE,INSULIN GLARG-YFGN,PEN) 100 unit/mL (3 mL) insulin pen 10 Each 4 Sig: Inject 24 Units subcutaneously daily at bedtime. Date of last office visit in primary care: 01/04/2023 Date of next office visit in primary care: 07/20/23 Thank you. Tequila Do LPN. documented in this encounter [facility] 01-04-2023 Instructions Iglesia Messina MD - 01/04/2023 3:49 PM EDT Nasal Stout gel spray --see if this helps open up Eustachian tubes. Also Stout saline spray might also help. Okay to add to using Flonase. if not better, recommend ENT. [facility] in [facility] but outside of [facility] system. Closest [facility] provider is [facility] (Dr. Sammy Lee). Try taking 1 metformin daily and see if diarrhea improves adequately. If not better, then stop metformin. See if diarrhea resolves. May increase insulin if needed to control sugars. documented in this encounter [facility] 01-04-2023 History of Presen t illness Narrative This note was created using [employer].. Subjective Rachel Holloway is a 67 year old female. Patient presents with: Follow Up SUBJECTIVE: Rachel Holloway is a 67 year old year old lady here today for follow up appointment for review of medical conditions. Diarrhea--ongoing issue. Can be 10 times on a bad day, and sometimes none. Always thin. No food triggers noted. Nothing makes it obviously better. Once tried to stop metformin but sugars went up so resumed. Had tolerated fine for quite a while before developed diarrhea. Bad allergies this summer. Azelastine not much help Ears still feel like under water though can hear okay. Can heat everything but seems muffled. Yawn can hear crackles. No pain. Fluticasone over the counter did not help. PAST MEDICAL HISTORY Diagnosis Date Arthritis Cough Esophageal reflux Neurogenic bladder 05/2018 Had urodynamics and cystoscopy by Dr. Cortez, she recommends interstim Other and unspecified hyperlipidemia Recurrent UTI Type II or unspecified type diabetes mellitus without mention of complication, not stated as uncontrolled Unspecified essential hypertension mild Current Outpatient Medications Medication Sig Azelastine (ASTEPRO ALLERGY) 205.5 mcg (0.15 %) spry Use 1 [place] in each nostril once daily. meclizine (ANTIVERT) 25 mg tab Take 1 tablet by mouth every 6 hours as needed (dizziness). atenolol (TENORMIN) 25 mg tablet Take 1 tablet by mouth once daily. glipiZIDE (GLUCOTROL) 10 mg tablet Take 1 tablet by mouth twice daily. losartan (COZAAR) 25 mg tablet Take 1 tablet by mouth once daily. metFORMIN ER (GLUCOPHAGE XR) 500 mg 24 hr tablet Take 1 tablet by mouth twice daily. omeprazole (PRILOSEC) 20 mg capsule Take 1 capsule by mouth once daily. pravastatin (PRAVACHOL) 20 mg tablet Take 1 tablet by mouth daily at bedtime. blood sugar diagnostic (BLOOD GLUCOSE TEST) test strip Test blood sugar(s) 2 times daily or as instructed. Dx: Type 2 DM - Controlled E11.9 Insulin: Yes estradiol (ESTRACE) 0.01 % (0.1 mg/gram) vaginal cream use vaginally once or twice weekly as directed Cholecalciferol, Vitamin D3, 25 mcg (1,000 unit) cap Take 1 capsule by mouth once daily. cyclobenzaprine (FLEXERIL) 10 mg tablet Take 1 tablet by mouth every 8 hours as needed (FOR PAIN OR MUSCLE SPASM). Ca/D3/mag ox/zinc/newspaper copy editor/shanelle/bor (CALCIUM 600-D3 PLUS ORAL) Take 1 capsule by mouth once daily. hydroxychloroquine (PLAQUENIL) 200 mg tablet Take 1 tablet by mouth twice daily. (Dr. Albright) aspirin, enteric coated (ASPIRIN, ENTERIC COATED) 81 mg EC tablet Take 81 mg by mouth once daily. predniSONE (DELTASONE) 10 mg tablet Take 2 tabs po BID for 2 days then 1 tab po BID for 2 days then 1/2 tab po BID for 2 days then 1/2 tab daily for 2 days then stop insulin glargine-yfgn (SEMGLEE,INSULIN GLARG-YFGN,PEN) 100 unit/mL (3 mL) insulin pen Inject 24 Units subcutaneously daily at bedtime. Lancets lancets Test blood sugar(s) 2 times daily or as instructed. Dx: Type 2 DM - Controlled E11.9 Insulin: Yes insulin needles, DISPOSABLE, (PEN NEEDLE) 31 gauge x 5/16 Use one needle per dose. 1 per day. Diagnosis: 250.02 Lancets (ACCU-CHEK SOFTCLIX LANCETS) lancets Use as instructed. Dx: E11.9, Z79.4 . Insulin: Yes. MULTIVITAMIN TAB Take by mouth. No current facility-administered medications for this visit. Review of Systems Objective BP 124/80 Pulse 70 Resp 16 Ht 162.6 cm (5' 4) Wt 80.7 kg (178 lb) BMI 30.55 kg/m Last 5 Encounter Wt Readings: Date: Wt: 01/04/2023 80.7 kg (178 lb) 08/25/2022 83 kg (183 lb) 08/11/2022 83 kg (183 lb) 08/10/2022 83.2 kg (183 lb 6.4 oz) 05/29/2022 81.2 kg (179 lb) No waist measurement recorded Estimated body mass index is 30.55 kg/m as calculated from the following: Height as of this encounter: 162.6 cm (5' 4). Weight as of this encounter: 80.7 kg (178 lb). Last 5 Encounter BP Readings: Date: BP: 01/04/2023 124/80 08/25/2022 124/70 08/11/2022 164/96 08/10/2022 162/90 06/11/2022 100/57 Physical Exam Constitutional: Appearance: Normal appearance. HENT: Head: Normocephalic. Eyes: Conjunctiva/sclera: Conjunctivae normal. Cardiovascular: Rate and Rhythm: Normal rate and regular rhythm. Heart sounds: Normal heart sounds. Pulmonary: Effort: Pulmonary effort is normal. Breath sounds: Normal breath sounds. Musculoskeletal: Right lower leg: No edema. Left lower leg: No edema. Skin: General: Skin is warm and dry. Neurological: General: No focal deficit present. Mental Status: She is alert and oriented to person, place, and time. Psychiatric: Attention and Perception: Attention and perception normal. Mood and Affect: Mood and affect normal. Speech: Speech normal. Behavior: Behavior normal. Thought Content: Thought content normal. Cognition and Memory: Cognition normal. Judgment: Judgment normal. Component Latest Ref Rng & Units 05/26/2021 05/19/2022 12/31/2022 Protein, Total 6.3 - 8.0 g/dL 7.4 Albumin 3.9 - 4.9 g/dL 4.3 Calcium 8.5 - 10.2 mg/dL 9.7 Bilirubin, Total 0.2 - 1.3 mg/dL 0.3 Alkaline Phosphatase 34 - 123 U/L 88 AST 13 - 35 U/L 22 ALT 7 - 38 U/L 21 Glucose 74 - 99 mg/dL 157 (H) BUN 7 - 21 mg/dL 8 Creatinine 0.58 - 0.96 mg/dL 0.75 Sodium 136 - 144 mmol/L 138 Potassium 3.7 - 5.1 mmol/L 4.1 Chloride 97 - 105 mmol/L 99 CO2 22 - 30 mmol/L 29 Anion Gap 9 - 18 mmol/L 10 eGFR >=60 mL/min/1.73m 87 WBC 3.70 - 11.00 k/uL 5.06 RBC 3.90 - 5.20 m/uL 4.46 Hemoglobin 11.5 - 15.5 g/dL 13.3 Hematocrit 36.0 - 46.0 % 40.0 MCV 80.0 - 100.0 fL 89.7 MCH 26.0 - 34.0 pg 29.8 MCHC 30.5 - 36.0 g/dL 33.3 RDW-CV 11.5 - 15.0 % 13.3 Platelet Count 150 - 400 k/uL 258 MPV 9.0 - 12.7 fL 9.4 Absolute nRBC <0.01 k/uL <0.01 Cholesterol, Total <200 mg/dL 165 167 167 Triglyceride <150 mg/dL 167 (H) 109 151 (H) HDL Cholesterol >39 mg/dL 72 84 78 LDL Cholesterol <100 mg/dL 60 61 59 Non HDL Cholesterol <130 mg/dL 93 83 89 Fasting Time hrs 10 10 13 VLDL Cholesterol <30 mg/dL 33 (H) 22 30 (H) TC:HDL Ratio <5.10 2.29 1.99 2.14 LDL:HDL Ratio <2.54 0.83 0.73 0.76 Creatinine, Ur Random (UCRR) 20.0 - 300.0 mg/dL 141.2 138.3 Albumin, Urine Random mg/L <12.0 22.1 Albumin/Creat Ratio <30 mg/g Not calculated 16 Hemoglobin A1C 4.3 - 5.6 % 7.5 (H) 7.0 (H) 7.2 (H) Estimated Average Glucose mg/dL 169 154 160 Vitamin D 25 Hydroxy 31.0 - 80.0 ng/mL 33.7 32.1 Hemoglobin A1C (%) Date Value 12/31/2022 7.2 05/19/2022 7.0 05/26/2021 7.5 11/01/2020 7.4 02/22/2020 7.6 05/17/2019 7.2 11/12/2018 6.8 Assessment and Plan Encounter Diagnosis ICD-10-CM 1. Controlled type 2 diabetes mellitus without complication, with long-term current use of insulin (HCC) E11.9 Z79.4 2. Essential hypertension I10 3. Vitamin D deficiency E55.9 4. Mixed hyperlipidemia E78.2 Above issues addressed with patient. Patient involved in shared decision making for management of medical issues. History and medications reviewed. Epic updated as needed Refills and/or prescriptions taken care of and meds adjusted as indicated after reviewed history, exam and labs. Health Maintenance reviewed. Updated record and/or ordered tests as recorded. Encouraged on efforts at healthy diet and regular exercise and adequate sleep. Needs to keep working on diet and exercise with lifestyle changes for effective weight loss as well as control of DM, and control of BP and lipids. BP and DM control good. Continue present management. TG close to goal <150. LDL and HDL fine.Stay on statin at current dose. Iglesia Messina MD documented in this encounter [facility] 08-25-2022 History of Presen t illness Narrative SUBJECTIVE Rachel Holloway is a 67 year old female here today for a check up on her medical problems. Chief Complaint Patient presents with: Recheck: neck pain HPI Rachel Holloway is a 67 year old female established patient. She presents today for 2 week follow up. Seen 08/11/2022 for neck pain. Treated with a prednisone taper. Work up had included xray showing mild degenerative change in lower cervical spine. Today she states she is feeling better, pain is more manageable. Steroid helped. Planning to go back to her arthritis doctor, sees Dr. Albright. Would like us to send xray results. Still constant aching. Ears still feel full. Flonase not helping. Blood sugars doing well. Blood pressures doing well. Her medications were reviewed today and her list is now up to date. Medications Current Outpatient Medications Medication Sig meclizine (ANTIVERT) 25 mg tab Take 1 tablet by mouth every 6 hours as needed (dizziness). atenolol (TENORMIN) 25 mg tablet Take 1 tablet by mouth once daily. glipiZIDE (GLUCOTROL) 10 mg tablet Take 1 tablet by mouth twice daily. insulin glargine-yfgn (SEMGLEE,INSULIN GLARG-YFGN,PEN) 100 unit/mL (3 mL) insulin pen Inject 24 Units subcutaneously daily at bedtime. losartan (COZAAR) 25 mg tablet Take 1 tablet by mouth once daily. metFORMIN ER (GLUCOPHAGE XR) 500 mg 24 hr tablet Take 1 tablet by mouth twice daily. omeprazole (PRILOSEC) 20 mg capsule Take 1 capsule by mouth once daily. pravastatin (PRAVACHOL) 20 mg tablet Take 1 tablet by mouth daily at bedtime. estradiol (ESTRACE) 0.01 % (0.1 mg/gram) vaginal cream use vaginally once or twice weekly as directed Cholecalciferol, Vitamin D3, 25 mcg (1,000 unit) cap Take 1 capsule by mouth once daily. cyclobenzaprine (FLEXERIL) 10 mg tablet Take 1 tablet by mouth every 8 hours as needed (FOR PAIN OR MUSCLE SPASM). Ca/D3/mag ox/zinc/newspaper copy editor/shanelle/bor (CALCIUM 600-D3 PLUS ORAL) Take 1 capsule by mouth once daily. hydroxychloroquine (PLAQUENIL) 200 mg tablet Take 1 tablet by mouth twice daily. (Dr. Albright) aspirin, enteric coated (ASPIRIN, ENTERIC COATED) 81 mg EC tablet Take 81 mg by mouth once daily. Azelastine (ASTEPRO ALLERGY) 205.5 mcg (0.15 %) spry Use 1 [place] in each nostril once daily. predniSONE (DELTASONE) 10 mg tablet Take 2 tabs po BID for 2 days then 1 tab po BID for 2 days then 1/2 tab po BID for 2 days then 1/2 tab daily for 2 days then stop (Patient not taking: Reported on 08/25/2022) blood sugar diagnostic (BLOOD GLUCOSE TEST) test strip Test blood sugar(s) 2 times daily or as instructed. Dx: Type 2 DM - Controlled E11.9 Insulin: Yes Lancets lancets Test blood sugar(s) 2 times daily or as instructed. Dx: Type 2 DM - Controlled E11.9 Insulin: Yes insulin needles, DISPOSABLE, (PEN NEEDLE) 31 gauge x 5/16 Use one needle per dose. 1 per day. Diagnosis: 250.02 Lancets (ACCU-CHEK SOFTCLIX LANCETS) lancets Use as instructed. Dx: E11.9, Z79.4 . Insulin: Yes. MULTIVITAMIN TAB Take one(1) tablet daily. (Patient not taking: Reported on 08/10/2022) No current facility-administered medications for this visit. ALLERGIES Allergen Reactions Lisinopril Cough ACTIVE PROBLEM LIST Obesity - 09/02/2014 Urinary, Incontinence, Stress Female - 08/04/2012 Screening for Colon Cancer - 08/12/2011 Allergic Rhinitis, Cause Unspecified - 03/10/2006 Hyperlipidemia Essential Hypertension Comment: mild Esophageal Reflux Diabetes Mellitus Type 2, Controlled, Without Complications ([facility]) Social History Tobacco Use Smoking status: Never Smokeless tobacco: Never Vaping Use Vaping Use: Never used Substance Use Topics Alcohol use: No Drug use: No Review of Systems Musculoskeletal: Positive for arthralgias, myalgias and neck pain. Negative for back pain, gait problem, joint swelling and neck stiffness. OBJECTIVE BP 124/70 Pulse 67 Wt 183 lb (83.0kg) SpO2 96% Physical Exam Vitals and nursing note reviewed. Constitutional: General: She is awake. She is not in acute distress. Appearance: Normal appearance. She is well-developed and well-groomed. She is not ill-appearing, toxic-appearing or diaphoretic. HENT: Head: Normocephalic. Right Ear: Hearing, tympanic membrane, ear canal and external ear normal. Left Ear: Hearing, tympanic membrane, ear canal and external ear normal. Nose: Nose normal. Eyes: General: Vision grossly intact. Conjunctiva/sclera: Conjunctivae normal. Pupils: Pupils are equal, round, and reactive to light. Neck: Vascular: No JVD. Trachea: Trachea normal. Cardiovascular: Rate and Rhythm: Normal rate and regular rhythm. Pulses: Normal pulses. Heart sounds: Normal heart sounds. No murmur heard. Pulmonary: Effort: Pulmonary effort is normal. No accessory muscle usage, prolonged expiration or respiratory distress. Breath sounds: Normal breath sounds. Musculoskeletal: Cervical back: Neck supple. Skin: General: Skin is warm and dry. Capillary Refill: Capillary refill takes less than 2 seconds. Neurological: General: No focal deficit present. Mental Status: She is alert and oriented to person, place, and time. Mental status is at baseline. Psychiatric: Attention and Perception: Attention and perception normal. Mood and Affect: Mood and affect normal. Speech: Speech normal. Behavior: Behavior normal. Behavior is cooperative. Thought Content: Thought content normal. Cognition and Memory: Cognition and memory normal. Judgment: Judgment normal. ASSESSMENT/PLAN: 1. Neck pain - ICD9: 723.1, ICD10: M54.2 (primary diagnosis) Improving, plans to follow up with Dr. Albright. 2. Post-nasal drainage - ICD9: 473.9, ICD10: R09.82 - AZELASTINE 205.5 MCG (0.15 %) NASAL SPRAY 3. Seasonal allergic rhinitis, unspecified trigger - ICD9: 477.9, ICD10: J30.2 - AZELASTINE 205.5 MCG (0.15 %) NASAL SPRAY 4. Controlled type 2 diabetes mellitus without complication, with long-term current use of insulin (HCC) - ICD9: 250.00, V58.67, ICD10: E11.9, Z79.4 Blood sugars stable. 5. Essential hypertension - ICD9: 401.9, ICD10: I10 - good control, stable - Continue current medication(s) - Reviewed risks of HTN and principles of treatment Portions of this note have been entered by ancillary staff. I have reviewed and when necessary edited, so that they are an adequate record of my encounter with this patient Please note that parts of this document were created using voice recognition software and therefore may contain grammatical errors. Patient verbalizes understanding of instructions from today's visit and in agreement with treatment plan. Questions answered. Agrees to call the office if questions, concerns of issues with acute symptoms not improving or if they worsen. Return if symptoms worsen or fail to improve, for Keep next scheduled appointment.. Tory Morales APRN-SALVADOR documented in this encounter [facility] 08-11-2022 History of Presen t illness Narrative MARIEL Holloway is a 67 year old female here today for express care follow up. Chief Complaint Patient presents with: Recheck: Was seen in urgent care 08/10/22 x-ray and blood pressure HPI Rachel Holloway is a 67 year old female established patient of Dr. Messina. Here today for an EC follow up. Seen in EC yesterday. Concerns of noting a pain/pressure to back of neck, dizzy. Onset about a week ago. EC was not sure if this was more vertigo versus elevated blood pressure versus something else. This am bp was 120/80 at home, no meds yet this morning. Blood sugars up some lately, not sure why but has trouble with it dropping over night at times. Work up includes an xray that showed a mild degenerative change in the lower cervical spine but her issue is more upper cervical spine. Pain is exacerbated with looking downward, not really impacted with side to side movement. Has been trying heat, tylenol, NSAIDs. Really no dizziness at this point. Her medications were reviewed today and her list is now up to date. Medications Current Outpatient Medications Medication Sig meclizine (ANTIVERT) 25 mg tab Take 1 tablet by mouth every 6 hours as needed (dizziness). atenolol (TENORMIN) 25 mg tablet Take 1 tablet by mouth once daily. glipiZIDE (GLUCOTROL) 10 mg tablet Take 1 tablet by mouth twice daily. insulin glargine-yfgn (SEMGLEE,INSULIN GLARG-YFGN,PEN) 100 unit/mL (3 mL) insulin pen Inject 24 Units subcutaneously daily at bedtime. losartan (COZAAR) 25 mg tablet Take 1 tablet by mouth once daily. metFORMIN ER (GLUCOPHAGE XR) 500 mg 24 hr tablet Take 1 tablet by mouth twice daily. omeprazole (PRILOSEC) 20 mg capsule Take 1 capsule by mouth once daily. pravastatin (PRAVACHOL) 20 mg tablet Take 1 tablet by mouth daily at bedtime. estradiol (ESTRACE) 0.01 % (0.1 mg/gram) vaginal cream use vaginally once or twice weekly as directed Cholecalciferol, Vitamin D3, 25 mcg (1,000 unit) cap Take 1 capsule by mouth once daily. cyclobenzaprine (FLEXERIL) 10 mg tablet Take 1 tablet by mouth every 8 hours as needed (FOR PAIN OR MUSCLE SPASM). Ca/D3/mag ox/zinc/newspaper copy editor/shanelle/bor (CALCIUM 600-D3 PLUS ORAL) Take 1 capsule by mouth once daily. hydroxychloroquine (PLAQUENIL) 200 mg tablet Take 1 tablet by mouth twice daily. (Dr. Albright) aspirin, enteric coated (ASPIRIN, ENTERIC COATED) 81 mg EC tablet Take 81 mg by mouth once daily. predniSONE (DELTASONE) 10 mg tablet Take 2 tabs po BID for 2 days then 1 tab po BID for 2 days then 1/2 tab po BID for 2 days then 1/2 tab daily for 2 days then stop blood sugar diagnostic (BLOOD GLUCOSE TEST) test strip Test blood sugar(s) 2 times daily or as instructed. Dx: Type 2 DM - Controlled E11.9 Insulin: Yes Lancets lancets Test blood sugar(s) 2 times daily or as instructed. Dx: Type 2 DM - Controlled E11.9 Insulin: Yes insulin needles, DISPOSABLE, (PEN NEEDLE) 31 gauge x 5/16 Use one needle per dose. 1 per day. Diagnosis: 250.02 Lancets (ACCU-CHEK SOFTCLIX LANCETS) lancets Use as instructed. Dx: E11.9, Z79.4 . Insulin: Yes. MULTIVITAMIN TAB Take one(1) tablet daily. (Patient not taking: Reported on 08/10/2022) No current facility-administered medications for this visit. ALLERGIES Allergen Reactions Lisinopril Cough ACTIVE PROBLEM LIST Obesity - 09/02/2014 Urinary, Incontinence, Stress Female - 08/04/2012 Screening for Colon Cancer - 08/12/2011 Allergic Rhinitis, Cause Unspecified - 03/10/2006 Hyperlipidemia Essential Hypertension Comment: mild Esophageal Reflux Diabetes Mellitus Type 2, Controlled, Without Complications ([facility]) Social History Tobacco Use Smoking status: Never Smokeless tobacco: Never Vaping Use Vaping Use: Never used Substance Use Topics Alcohol use: No Drug use: No Review of Systems Respiratory: Negative. Cardiovascular: Negative. Musculoskeletal: Positive for myalgias and neck pain. Negative for neck stiffness. OBJECTIVE BP 164/96 Pulse 76 Wt 183 lb (83.0kg) SpO2 95% Physical Exam Vitals and nursing note reviewed. Constitutional: General: She is awake. She is not in acute distress. Appearance: Normal appearance. She is well-developed and well-groomed. She is not ill-appearing, toxic-appearing or diaphoretic. HENT: Head: Normocephalic. Right Ear: External ear normal. Left Ear: External ear normal. Nose: Nose normal. Eyes: General: Vision grossly intact. Conjunctiva/sclera: Conjunctivae normal. Pupils: Pupils are equal, round, and reactive to light. Neck: Vascular: No JVD. Trachea: Trachea normal. Cardiovascular: Rate and Rhythm: Normal rate and regular rhythm. Pulses: Normal pulses. Heart sounds: Normal heart sounds. No murmur heard. Pulmonary: Effort: Pulmonary effort is normal. No accessory muscle usage, prolonged expiration or respiratory distress. Breath sounds: Normal breath sounds. Musculoskeletal: Cervical back: Neck supple. No erythema, rigidity or crepitus. Pain with movement (with bringing chin to chest) and muscular tenderness (to base of skull, upper neck) present. No spinous process tenderness. Normal range of motion. Lymphadenopathy: Cervical: No cervical adenopathy. Skin: General: Skin is warm and dry. Capillary Refill: Capillary refill takes less than 2 seconds. Neurological: General: No focal deficit present. Mental Status: She is alert and oriented to person, place, and time. Mental status is at baseline. Cranial Nerves: Cranial nerves 2-12 are intact. Sensory: Sensation is intact. Motor: Motor function is intact. Coordination: Coordination is intact. Gait: Gait is intact. Psychiatric: Attention and Perception: Attention and perception normal. Mood and Affect: Mood and affect normal. Speech: Speech normal. Behavior: Behavior normal. Behavior is cooperative. Thought Content: Thought content normal. Cognition and Memory: Cognition and memory normal. Judgment: Judgment normal. ASSESSMENT/PLAN: 1. Neck pain - ICD9: 723.1, ICD10: M54.2 Suspect her pain is more a muscular etiology. No palpable lymphadenopathy, no visual issues and no red flags on neuro exam. Blood pressure controlled at home. Advised close monitoring of sugars and blood pressure. Reviewed signs and symptoms to monitor for and when to seek medical attention. Start prednisone taper, hold NSAIDs. - PREDNISONE 10 MG TABLET Portions of this note have been entered by ancillary staff. I have reviewed and when necessary edited, so that they are an adequate record of my encounter with this patient Please note that parts of this document were created using voice recognition software and therefore may contain grammatical errors. Patient verbalizes understanding of instructions from today's visit and in agreement with treatment plan. Questions answered. Agrees to call the office if questions, concerns of issues with acute symptoms not improving or if they worsen. Return in about 2 weeks (around 08/25/2022) for recheck. SONA Land documented in this encounter [facility] 08-10-2022 Miscellaneous Notes Patient notified of results, verbalizes understanding of instructions. Celeste Swenson LPN Please call and let patient know she did have some arthritis and disc space narrowing in the lower neck but none in the upper neck area noted. Recommend continuing the Tylenol, heat or ice on the neck and following up tomorrow morning. documented in this encounter [facility] 08-10-2022 History of Presen t illness Narrative Radiology Service Progress Note PATIENT NAME: Rachel Holloway DATE OF SERVICE: August 10, 2022 TIME: 12:26 PM PATIENT IDENTITY VERIFICATION COMPLETED USING TWO (2) IDENTIFIERS: Name and Date of confirmed by patient verbally. FALL SCREENING: Has the patient had 2 falls in the last year or 1 fall with injury or currently using an Ambulatory Assistive Device (Walker, Cane, Wheelchair, Crutches, etc.)? No PATIENT GENDER DATA: Female. status: : No status: NO. PATIENT RELEVANT IMPLANT DATA REVIEWED: Not Applicable RADIOLOGY DEPARTMENT: General X-ray: Exam(s) Completed: Spine X-Ray(s): Cervical AP / LAT / OBL PERIPHERAL IV DATA: Not applicable SIGNED BY: RT Erick(R) August 10, 2022 12:26 PM documented in this encounter [facility] 08-10-2022 History of Presen t illness Narrative This note was created using NoteWriter. Subjective Rachel Holloway is a 67 year old female. HPI Patient presents with a chief complaint of neck pain, ear pressure, lightheadedness over the past week. She states when she moves her head back she feels dizzy or if she were to lay down or moves suddenly she feels dizzy. Otherwise denies a headache. No weakness numbness or tingling. No fever. She states her allergies have been acting up some. She has noticed her blood sugar has been elevated into the 200s which typically she is around 150. She checked it this morning and it was 200 half hour before breakfast. No vomiting or diarrhea. Denies history of vertigo. Denies cough. Denies chest pain or shortness of breath. Review of Systems Constitutional: Negative. Eyes: Negative. Respiratory: Negative. Cardiovascular: Negative. Gastrointestinal: Negative. Genitourinary: Negative. Musculoskeletal: Positive for neck pain. Neurological: Positive for dizziness and light-headedness. Negative for seizures, syncope, facial asymmetry, speech difficulty, weakness, numbness and headaches. Hematological: Negative. All other systems reviewed and are negative. PAST MEDICAL HISTORY Diagnosis Date Arthritis Cough Esophageal reflux Neurogenic bladder 05/2018 Had urodynamics and cystoscopy by Dr. Cortez, she recommends interstim Other and unspecified hyperlipidemia Recurrent UTI Type II or unspecified type diabetes mellitus without mention of complication, not stated as uncontrolled Unspecified essential hypertension mild Current Outpatient Medications Medication Sig Dispense Refill atenolol (TENORMIN) 25 mg tablet Take 1 tablet by mouth once daily. 90 tablet 3 glipiZIDE (GLUCOTROL) 10 mg tablet Take 1 tablet by mouth twice daily. 180 tablet 3 insulin glargine-yfgn (SEMGLEE,INSULIN GLARG-YFGN,PEN) 100 unit/mL (3 mL) insulin pen Inject 24 Units subcutaneously daily at bedtime. 10 Each 4 losartan (COZAAR) 25 mg tablet Take 1 tablet by mouth once daily. 90 tablet 3 metFORMIN ER (GLUCOPHAGE XR) 500 mg 24 hr tablet Take 1 tablet by mouth twice daily. 180 tablet 3 omeprazole (PRILOSEC) 20 mg capsule Take 1 capsule by mouth once daily. 90 capsule 3 pravastatin (PRAVACHOL) 20 mg tablet Take 1 tablet by mouth daily at bedtime. 90 tablet 3 blood sugar diagnostic (BLOOD GLUCOSE TEST) test strip Test blood sugar(s) 2 times daily or as instructed. Dx: Type 2 DM - Controlled E11.9 Insulin: Yes 200 Strip 3 Lancets lancets Test blood sugar(s) 2 times daily or as instructed. Dx: Type 2 DM - Controlled E11.9 Insulin: Yes 200 Each 3 estradiol (ESTRACE) 0.01 % (0.1 mg/gram) vaginal cream use vaginally once or twice weekly as directed 42.5 g 1 insulin needles, DISPOSABLE, (PEN NEEDLE) 31 gauge x 5/16 Use one needle per dose. 1 per day. Diagnosis: 250.02 100 Each 3 Cholecalciferol, Vitamin D3, 25 mcg (1,000 unit) cap Take 1 capsule by mouth once daily. Ca/D3/mag ox/zinc/newspaper copy editor/shanelle/bor (CALCIUM 600-D3 PLUS ORAL) Take 1 capsule by mouth once daily. Lancets (ACCU-CHEK SOFTCLIX LANCETS) lancets Use as instructed. Dx: E11.9, Z79.4 . Insulin: Yes. 200 Each 3 hydroxychloroquine (PLAQUENIL) 200 mg tablet Take 1 tablet by mouth twice daily. (Dr. Albright) aspirin, enteric coated (ASPIRIN, ENTERIC COATED) 81 mg EC tablet Take 81 mg by mouth once daily. meclizine (ANTIVERT) 25 mg tab Take 1 tablet by mouth every 6 hours as needed (dizziness). 16 tablet 0 cyclobenzaprine (FLEXERIL) 10 mg tablet Take 1 tablet by mouth every 8 hours as needed (FOR PAIN OR MUSCLE SPASM). (Patient not taking: Reported on 08/10/2022) 30 tablet 0 MULTIVITAMIN TAB Take one(1) tablet daily. (Patient not taking: Reported on 08/10/2022) 0 No current facility-administered medications for this visit. PAST SURGICAL HISTORY Procedure Laterality Date APPENDECTOMY child APPENDECTOMY HX COLONOSCOPY 06/11/2022 repeat in 10 years COLONOSCOPY SCREENING 2011 PT ED GENERAL MEDICINE FAMILY HISTORY Problem Relation Age of Onset Diabetes Father Hypertension Father Cancer Mother breast Breast Cancer Maternal Aunt Breast Cancer Maternal Aunt Heart Sister Diabetes Sister Diabetes Sister Diabetes Sister Social History Tobacco Use Smoking status: Never Smokeless tobacco: Never Vaping Use Vaping Use: Never used Substance Use Topics Alcohol use: No Drug use: No Objective BP 162/90 Pulse 77 Temp 36.3 C (97.3 F) Resp 21 Wt 83.2 kg (183 lb 6.4 oz) SpO2 97% BMI 31.48 kg/m Physical Exam Vitals reviewed. Constitutional: Appearance: Normal appearance. HENT: Head: Normocephalic and atraumatic. Right Ear: Tympanic membrane, ear canal and external ear normal. Left Ear: Tympanic membrane, ear canal and external ear normal. Nose: Nose normal. Mouth/Throat: Mouth: Mucous membranes are moist. Pharynx: Oropharynx is clear. Cardiovascular: Rate and Rhythm: Normal rate and regular rhythm. Heart sounds: Normal heart sounds. Pulmonary: Effort: Pulmonary effort is normal. Breath sounds: Normal breath sounds. Musculoskeletal: Cervical back: Neck supple. Comments: Patient tender on the paraspinal musculature of the cervical spine. No midline tenderness. She has increased pain with flexion and extension of the neck. Normal strength and sensation in her upper and lower extremities. Able to ambulate. Skin: General: Skin is warm and dry. Neurological: General: No focal deficit present. Mental Status: She is alert and oriented to person, place, and time. Comments: When patient moves extends neck posteriorly she does get pain in the neck and does feel dizzy with this. Also dizzy when she lays down fast. No dizziness with moving her head left to right. There is no nystagmus noted. Dizziness does subside after several seconds. Assessment and Plan ASSESSMENT/PLAN: 1. Dizziness - ICD9: 780.4, ICD10: R42 (primary diagnosis) We will trial meclizine, she has close follow-up tomorrow morning in internal medicine. Discussed red flag symptoms to be seen in the ER. She does not have any red flag neurologic symptoms today and symptoms have been for a week now.. Patient agreeable with plan. - GLUCOSE, BLOOD (POC) 2. Neck pain - ICD9: 723.1, ICD10: M54.2 Very reproducible on palpation and with range of motion. Cervical spine x-rays pending. Will call on results. Discussed trying Tylenol, heat, ice. - XR CERV OTHER 4V AP/LAT/OBL Dia Garcia PA-C documented in this encounter [facility] 06-11-2022 Nurse Note Patient freely passing flatus. Abdomen remains soft. Patient denies discomfort. Ann Sun RN Arrived in phase II via cart. Left lateral position. Sedated, but responds to verbal stimuli. Color normal; skin warm and dry. Respirations wnl and unlabored. Abdomen soft and with + bowel sounds in quads X 4. Patient resting comfortably. Ann Sun RN documented in this encounter [facility] 06-11-2022 History and physical note Images from the original note were not included. HISTORY AND PHYSICAL Rachel Holloway 1955 REFERRING PHYSICIAN: Iglesia Messina MD CHIEF COMPLAINT: Consult (colonoscopy) HPI: The patient is a 66 year old female referred for endoscopy. Rachel notes no history of colon complaints. The patient notes no history of upper GI complaints. Rachel has undergone prior endoscopy. 2011 The patient is being seen by me today at the request of Dr. Iglesia Messina MD for my opinion and advice regarding Colon cancer screening. PAST MEDICAL HISTORY PAST MEDICAL HISTORY Diagnosis Date Cough Esophageal reflux Neurogenic bladder 05/2018 Had urodynamics and cystoscopy by Dr. Cortez, she recommends interstim Other and unspecified hyperlipidemia Recurrent UTI Type II or unspecified type diabetes mellitus without mention of complication, not stated as uncontrolled Unspecified essential hypertension mild PAST SURGICAL HISTORY PAST SURGICAL HISTORY Procedure Laterality Date APPENDECTOMY child COLONOSCOPY SCREENING 2011 PT ED GENERAL MEDICINE CURRENT MEDICATIONS Current Outpatient Medications Medication Sig glipiZIDE (GLUCOTROL) 10 mg tablet Take 1 tablet by mouth twice daily. insulin glargine-yfgn (SEMGLEE,INSULIN GLARG-YFGN,PEN) 100 unit/mL (3 mL) insulin pen Inject 24 Units subcutaneously daily at bedtime. losartan (COZAAR) 25 mg tablet Take 1 tablet by mouth once daily. metFORMIN ER (GLUCOPHAGE XR) 500 mg 24 hr tablet Take 1 tablet by mouth twice daily. omeprazole (PRILOSEC) 20 mg capsule Take 1 capsule by mouth once daily. pravastatin (PRAVACHOL) 20 mg tablet Take 1 tablet by mouth daily at bedtime. blood sugar diagnostic (BLOOD GLUCOSE TEST) test strip Test blood sugar(s) 2 times daily or as instructed. Dx: Type 2 DM - Controlled E11.9 Insulin: Yes Lancets lancets Test blood sugar(s) 2 times daily or as instructed. Dx: Type 2 DM - Controlled E11.9 Insulin: Yes atenolol (TENORMIN) 25 mg tablet Take 1 tablet by mouth once daily. estradiol (ESTRACE) 0.01 % (0.1 mg/gram) vaginal cream use vaginally once or twice weekly as directed insulin needles, DISPOSABLE, (PEN NEEDLE) 31 gauge x 5/16 Use one needle per dose. 1 per day. Diagnosis: 250.02 Cholecalciferol, Vitamin D3, 25 mcg (1,000 unit) cap Take 1 capsule by mouth once daily. cyclobenzaprine (FLEXERIL) 10 mg tablet Take 1 tablet by mouth every 8 hours as needed (FOR PAIN OR MUSCLE SPASM). Ca/D3/mag ox/zinc/newspaper copy editor/shanelle/bor (CALCIUM 600-D3 PLUS ORAL) Take 1 capsule by mouth once daily. Lancets (ACCU-CHEK SOFTCLIX LANCETS) lancets Use as instructed. Dx: E11.9, Z79.4 . Insulin: Yes. hydroxychloroquine (PLAQUENIL) 200 mg tablet Take 1 tablet by mouth twice daily. (Dr. Albright) aspirin, enteric coated (ASPIRIN, ENTERIC COATED) 81 mg EC tablet Take 81 mg by mouth once daily. MULTIVITAMIN TAB Take one(1) tablet daily. No current facility-administered medications for this visit. ALLERGIES: Lisinopril PERSONAL HISTORY: SOCIAL HISTORY Social History Tobacco Use Smoking status: Never Smokeless tobacco: Never Vaping Use Vaping Use: Never used Substance Use Topics Alcohol use: No Drug use: No FAMILY HISTORY: FAMILY HISTORY FAMILY HISTORY Problem Relation Age of Onset Diabetes Father Hypertension Father Cancer Mother breast Breast Cancer Maternal Aunt Breast Cancer Maternal Aunt Heart Sister Diabetes Sister Diabetes Sister Diabetes Sister REVIEW OF SYMPTOMS: The review of systems data was entered by the nurse and reviewed by ma Nursing Notes: Erin Scott LPN 05/29/2022 10:01 AM Signed REVIEW OF SYSTEMS: General: The patient denies fatigue, denies weight loss, denies weight gain, denies feeling hot, and denies feelings of cold. Eyes: The patient denies glaucoma, denies eye injury/surgery, wears glasses or contacts. Ear/Nose/Throat: The patient notes allergies, denies hayfever, denies ear infections, and denies bloody noses. Cardiovascular: The patient denies chest pain, denies heart disease, notes high blood pressure,denies cardiac stent, denies prior heart attack, denies irregular heart beat, notes high cholesterol, denies poor circulation, denies heart failure, other cardiac issues, denies claudication, denies cold feet, denies peripheral arterial stent. Respiratory: The patient denies tuberculosis, denies pneumonia, denies frequent cough, denies pulmonary embolism, denies shortness of breath, and denies coughing up blood. Gastrointestinal: The patient denies difficulty swallowing, denies acid reflux, notes ulcers, denies vomiting, denies jaundice/hepatitis, denies gallbladder problems, denies black or tarry stools, denies hemorrhoids, denies bleeding from rectum, denies diverticulitis, denies constipation, notes diarrhea, denies loss of stool control, and denies hernias. Kidney/Bladder: The patient denies kidney stones, notes urine infections, and denies bloody urine. Skin: The patient denies a history of skin cancer, denies bleeding/changing moles, and denies a history of skin rash. Neurologic: The patient denies a history of epilepsy/convulsions, denies headaches, denies head/spinal injuries, and denies stroke/TIA. Psychiatric: The patient denies psychiatric medications, denies depression, and denies voices, denies substance abuse. Endocrine: The patient denies thyroid disorders, notes diabetes, and denies hormonal problems. Hematologic: The patient denies a history of bruising, denies bleeding, and denies anemia, denies blood clots. Infections: The patient notes a history of measles and mumps, denies rheumatic fever, and denies sexually transmitted diseases. Musculoskeletal: The patient denies back pain/injury, denies back problems, denies sciatica, notes knee/foot trouble, notes arthritis, or denies gout. When was patient's last Mammogram screening? 2021 Last Colonoscopy: 2011 Erin Scott LPN PHYSICAL EXAMINATION: General: The patient is 66 year old female, well nourished, well hydrated in no acute distress. The patient is oriented to time, place, and person. VITALS: Blood pressure 138/78, pulse 70, temperature (!) 35.6 C (96 F), height 162.6 cm (5' 4), weight 81.2 kg (179 lb), SpO2 99 %. Body mass index is 30.73 kg/m . HEENT: Normal cephalic, ataumatic, pupils are equally round, sclera are anicteric, mucous membranes are moist, oropharynx is clear. Neck has no masses, asymmetry or lymphadenopathy. Thyroid is unremarkable. Respiratory: Clear to auscultation and percussion. Normal respiratory excursion and pattern. Cardiac: Examination is regular rate and rhythm. Abdominal exam: Soft, nontender, with no palpable masses. No hepatosplenomegaly. No palpable hernias. Rectal exam: exam deferred Extremities: no clubbing, cyanosis or edema. No adenopathy. Other: LABORATORY VALUES: As Noted RADIOLOGIC STUDIES: As Noted Assessment IMPRESSION: Colon cancer screening PLAN: I plan to perform lower endoscopy. We discussed the risks and benefits of the planned endoscopy. I have informed the patient that complications can occur including failure to complete the endoscopy and perforation. The patient had the opportunity to ask questions concerning the planned endoscopy. My staff has also explained the procedure to the patient in understandable terms and has given the patient printed material concerning the procedure. The patient freely consents to surgery. I plan to use golytely bowel preparation for endoscopy Patient is aware that she will need to make adjustments in her diabetes medications the day of the procedure. Diagnoses: (Z12.11) Colon cancer screening My findings have been communicated to Dr. Iglesia Messina MD via shared medical record. This note will be forwarded to Dr. Iglesia Messina MD. Return to Clinic: The patient is instructed to follow-up with me 1 week post operatively. Artis Bradford III, MD UPDATED HISTORY AND PHYSICAL EXAMINATION SERVICE DATE: 06/11/2022 SERVICE TIME: 7:46 AM PHYSICAL EXAM MUST BE COMPLETED ON ADMISSION The History and Physical (completed in the past 30 days) has been reviewed and the patient has been examined. The contents accurately reflect the patient's condition with the following additions or revisions since the H&P was completed. Examination indicates no changes. This H&P can be found in the attached. SIGNATURE: Artis Bradford III, MD PATIENT NAME: Rachel Holloway DATE: June 11, 2022 TIME: 7:46 AM documented in this encounter [facility] 06-10-2022 Miscellaneous Notes Patient has been identified by name and date of : No Patient phones for refill(s): Requested Prescriptions Pending Prescriptions Disp Refills atenolol (TENORMIN) 25 mg tablet 90 tablet 3 Sig: Take 1 tablet by mouth once daily. Date of last office visit in primary care: 05/26/22 Last 2 Encounter Wt Readings: Date: Wt: 05/29/2022 81.2 kg (179 lb) 05/26/2022 80.3 kg (177 lb) Previous labs/tests for medication: Blood Pressure: BUN (mg/dL) Date Value 11/01/2020 12 Sodium (mmol/L) Date Value 11/01/2020 136 Last 1 Encounter BP Readings: Date: BP: 05/29/2022 138/78 Please advise. Thank you. Anjelica Castañeda LPN documented in this encounter [facility] 05-29-2022 Instructions Artis Bradford MD - 05/29/2022 10:22 AM EST Images from the original note were not included. Bowel Preparation Instructions for: Golytely, Nulytely, Trilyte or Colyte (polyethylene glycol 3350 and electrolytes) IF YOU DO NOT FOLLOW THESE DIRECTIONS, YOUR COLONOSCOPY WILL BE CANCELLED. Baires Instructions: Your bowel must be empty so that your doctor can clearly view your colon. Follow all of the instructions in this handout EXACTLY as they are written. Do NOT eat any solid food the ENTIRE day before your colonoscopy. Drink only clear liquids. Buy your bowel preparation at least 5 days before your colonoscopy. TRANSPORTATION on the Day of Your Exam A responsible person MUST be present with you at Check In prior to your colonoscopy and REMAIN in the endoscopy area until you are discharged. You are NOT ALLOWED to drive, take a taxi or bus, or leave the Endoscopy Center ALONE. If you do not have a responsible courtesy van driver (family member or friend) with you to take you home, your exam cannot be done with sedation and will be cancelled. Please bring a list of all of your current medications, including any Over-the Counter medications with you. Medications If you take insulin, diabetic medications or blood thinners such as Coumadin (warfarin), Plavix (clopidogrel), Ticlid (ticlopidine hydrochloride), Agrylin (anagrelide), Xarelto (Rivaroxaban), Pradaxa (Dabigatran), Eliquis (Apixaban), and Effient (Prasugrel). You MUST call the doctors who orders those medicines for instructions on altering the dosage before your colonoscopy. All other medications should be taken the day of the exam with a sip of water including ASPIRIN. Five (5) Days Before Your Colonoscopy Do NOT take medicines that stop diarrhea - such as Imodium, Kaopectate, or Pepto Bismol. Do NOT take fiber supplements - such as Metamucil, Citrucel, or Perdiem. Do NOT take products that contain iron - such as multi-vitamins (the label lists what is in the products). Do NOT take Vitamin E. Buy the prescription bowel preparation solution at your local pharmacy or drugstore pharmacy. 03/2019 Bowel Preparation Instructions for: Golytely, Nulytely, Trilyte or Colyte (polyethylene glycol 3350 and electrolytes) Three (3) Days Before Your Colonoscopy Do NOT eat high-fiber foods - such as popcorn, beans, seeds (flax, sunflower, quinoa), multigrain bread, nuts, salad/vegetables, or fresh and dried fruit. One (1) Day Before Your Colonoscopy Only drink clear liquids the ENTIRE DAY before your colonoscopy. Do NOT eat any solid foods. Drink at least 8 ounces of clear liquids every hour after waking up. The clear liquids you can drink include: Clear Liquid (NO RED LIQUIDS) DO NOT DRINK Gatorade, Pedialyte or Powerade Clear broth or bouillon Coffee or tea (no milk or non-dairy creamer) Carbonated and non-carbonated soft drinks Rupesh-Aid or other fruit flavored drinks Strained fruit juices (no pulp) Jell-O, popsicles, hard candy Water Alcohol Milk or non-dairy creamers Noodles or vegetables in soup Juice with pulp Liquid you cannot see through Do not use tobacco/vaping products The bowel preparation solution will be consumed in two parts. Mix the solution the evening before your colonoscopy and refrigerate before drinking. You may add the flavor pack that came with the bowel preparation. Do NOT add ice, sugar or any other flavorings to the solution. Part 1 At 6:00 PM - Evening before your colonoscopy Drink an 8-oz glass of bowel preparation every 10 minutes for a total of 8 glasses. You may continue to drink clear liquids until midnight. Part 2 On the day of your colonoscopy you may drink clear liquids up to (three) 3 hours before your procedure. 4 1/2 hours before your colonoscopy Drink an 8-oz glass of bowel preparation every 10 minutes for a total of 8 glasses. Fifteen (15) minutes later, drink an 8-oz glass of clear liquids every 15 minutes for a total of 2 glasses. You may continue to drink clear liquids up to (three) 3 hours before your exam. 2 03/2019 documented in this encounter [facility] 05-29-2022 History of Presen t illness Narrative HISTORY AND PHYSICAL Rachel Motleynes 1955 REFERRING PHYSICIAN: Iglesia Messina MD CHIEF COMPLAINT: Consult (colonoscopy) HPI: The patient is a 66 year old female referred for endoscopy. Rachel notes no history of colon complaints. The patient notes no history of upper GI complaints. Rachel has undergone prior endoscopy. 2011 The patient is being seen by me today at the request of Dr. Iglesia Messina MD for my opinion and advice regarding Colon cancer screening. PAST MEDICAL HISTORY Diagnosis Date Cough Esophageal reflux Neurogenic bladder 05/2018 Had urodynamics and cystoscopy by Dr. Cortez, she recommends interstim Other and unspecified hyperlipidemia Recurrent UTI Type II or unspecified type diabetes mellitus without mention of complication, not stated as uncontrolled Unspecified essential hypertension mild PAST SURGICAL HISTORY Procedure Laterality Date APPENDECTOMY child COLONOSCOPY SCREENING 2011 PT ED GENERAL MEDICINE Current Outpatient Medications Medication Sig glipiZIDE (GLUCOTROL) 10 mg tablet Take 1 tablet by mouth twice daily. insulin glargine-yfgn (SEMGLEE,INSULIN GLARG-YFGN,PEN) 100 unit/mL (3 mL) insulin pen Inject 24 Units subcutaneously daily at bedtime. losartan (COZAAR) 25 mg tablet Take 1 tablet by mouth once daily. metFORMIN ER (GLUCOPHAGE XR) 500 mg 24 hr tablet Take 1 tablet by mouth twice daily. omeprazole (PRILOSEC) 20 mg capsule Take 1 capsule by mouth once daily. pravastatin (PRAVACHOL) 20 mg tablet Take 1 tablet by mouth daily at bedtime. blood sugar diagnostic (BLOOD GLUCOSE TEST) test strip Test blood sugar(s) 2 times daily or as instructed. Dx: Type 2 DM - Controlled E11.9 Insulin: Yes Lancets lancets Test blood sugar(s) 2 times daily or as instructed. Dx: Type 2 DM - Controlled E11.9 Insulin: Yes atenolol (TENORMIN) 25 mg tablet Take 1 tablet by mouth once daily. estradiol (ESTRACE) 0.01 % (0.1 mg/gram) vaginal cream use vaginally once or twice weekly as directed insulin needles, DISPOSABLE, (PEN NEEDLE) 31 gauge x 5/16 Use one needle per dose. 1 per day. Diagnosis: 250.02 Cholecalciferol, Vitamin D3, 25 mcg (1,000 unit) cap Take 1 capsule by mouth once daily. cyclobenzaprine (FLEXERIL) 10 mg tablet Take 1 tablet by mouth every 8 hours as needed (FOR PAIN OR MUSCLE SPASM). Ca/D3/mag ox/zinc/newspaper copy editor/shanelle/bor (CALCIUM 600-D3 PLUS ORAL) Take 1 capsule by mouth once daily. Lancets (ACCU-CHEK SOFTCLIX LANCETS) lancets Use as instructed. Dx: E11.9, Z79.4 . Insulin: Yes. hydroxychloroquine (PLAQUENIL) 200 mg tablet Take 1 tablet by mouth twice daily. (Dr. Albright) aspirin, enteric coated (ASPIRIN, ENTERIC COATED) 81 mg EC tablet Take 81 mg by mouth once daily. MULTIVITAMIN TAB Take one(1) tablet daily. No current facility-administered medications for this visit. ALLERGIES: Lisinopril PERSONAL HISTORY: Social History Tobacco Use Smoking status: Never Smokeless tobacco: Never Vaping Use Vaping Use: Never used Substance Use Topics Alcohol use: No Drug use: No FAMILY HISTORY: FAMILY HISTORY Problem Relation Age of Onset Diabetes Father Hypertension Father Cancer Mother breast Breast Cancer Maternal Aunt Breast Cancer Maternal Aunt Heart Sister Diabetes Sister Diabetes Sister Diabetes Sister REVIEW OF SYMPTOMS: The review of systems data was entered by the nurse and reviewed by me Nursing Notes: Erin ScottAMILCAR 05/29/2022 10:01 AM Signed REVIEW OF SYSTEMS: General: The patient denies fatigue, denies weight loss, denies weight gain, denies feeling hot, and denies feelings of cold. Eyes: The patient denies glaucoma, denies eye injury/surgery, wears glasses or contacts. Ear/Nose/Throat: The patient notes allergies, denies hayfever, denies ear infections, and denies bloody noses. Cardiovascular: The patient denies chest pain, denies heart disease, notes high blood pressure,denies cardiac stent, denies prior heart attack, denies irregular heart beat, notes high cholesterol, denies poor circulation, denies heart failure, other cardiac issues, denies claudication, denies cold feet, denies peripheral arterial stent. Respiratory: The patient denies tuberculosis, denies pneumonia, denies frequent cough, denies pulmonary embolism, denies shortness of breath, and denies coughing up blood. Gastrointestinal: The patient denies difficulty swallowing, denies acid reflux, notes ulcers, denies vomiting, denies jaundice/hepatitis, denies gallbladder problems, denies black or tarry stools, denies hemorrhoids, denies bleeding from rectum, denies diverticulitis, denies constipation, notes diarrhea, denies loss of stool control, and denies hernias. Kidney/Bladder: The patient denies kidney stones, notes urine infections, and denies bloody urine. Skin: The patient denies a history of skin cancer, denies bleeding/changing moles, and denies a history of skin rash. Neurologic: The patient denies a history of epilepsy/convulsions, denies headaches, denies head/spinal injuries, and denies stroke/TIA. Psychiatric: The patient denies psychiatric medications, denies depression, and denies voices, denies substance abuse. Endocrine: The patient denies thyroid disorders, notes diabetes, and denies hormonal problems. Hematologic: The patient denies a history of bruising, denies bleeding, and denies anemia, denies blood clots. Infections: The patient notes a history of measles and mumps, denies rheumatic fever, and denies sexually transmitted diseases. Musculoskeletal: The patient denies back pain/injury, denies back problems, denies sciatica, notes knee/foot trouble, notes arthritis, or denies gout. When was patient's last Mammogram screening? 2021 Last Colonoscopy: 2011 Erin Scott LPN PHYSICAL EXAMINATION: General: The patient is 66 year old female, well nourished, well hydrated in no acute distress. The patient is oriented to time, place, and person. VITALS: Blood pressure 138/78, pulse 70, temperature (!) 35.6 C (96 F), height 162.6 cm (5' 4), weight 81.2 kg (179 lb), SpO2 99 %. Body mass index is 30.73 kg/m . HEENT: Normal cephalic, ataumatic, pupils are equally round, sclera are anicteric, mucous membranes are moist, oropharynx is clear. Neck has no masses, asymmetry or lymphadenopathy. Thyroid is unremarkable. Respiratory: Clear to auscultation and percussion. Normal respiratory excursion and pattern. Cardiac: Examination is regular rate and rhythm. Abdominal exam: Soft, nontender, with no palpable masses. No hepatosplenomegaly. No palpable hernias. Rectal exam: exam deferred Extremities: no clubbing, cyanosis or edema. No adenopathy. Other: LABORATORY VALUES: As Noted RADIOLOGIC STUDIES: As Noted Assessment IMPRESSION: Colon cancer screening PLAN: I plan to perform lower endoscopy. We discussed the risks and benefits of the planned endoscopy. I have informed the patient that complications can occur including failure to complete the endoscopy and perforation. The patient had the opportunity to ask questions concerning the planned endoscopy. My staff has also explained the procedure to the patient in understandable terms and has given the patient printed material concerning the procedure. The patient freely consents to surgery. I plan to use golytely bowel preparation for endoscopy Patient is aware that she will need to make adjustments in her diabetes medications the day of the procedure. Diagnoses: (Z12.11) Colon cancer screening My findings have been communicated to Dr. Iglesia Messina MD via shared medical record. This note will be forwarded to Dr. Iglesia Messina MD. Return to Clinic: The patient is instructed to follow-up with me 1 week post operatively. Artis Bradford III, MD documented in this encounter [facility] 05-29-2022 Nurse Note REVIEW OF SYSTEMS: General: The patient denies fatigue, denies weight loss, denies weight gain, denies feeling hot, and denies feelings of cold. Eyes: The patient denies glaucoma, denies eye injury/surgery, wears glasses or contacts. Ear/Nose/Throat: The patient notes allergies, denies hayfever, denies ear infections, and denies bloody noses. Cardiovascular: The patient denies chest pain, denies heart disease, notes high blood pressure,denies cardiac stent, denies prior heart attack, denies irregular heart beat, notes high cholesterol, denies poor circulation, denies heart failure, other cardiac issues, denies claudication, denies cold feet, denies peripheral arterial stent. Respiratory: The patient denies tuberculosis, denies pneumonia, denies frequent cough, denies pulmonary embolism, denies shortness of breath, and denies coughing up blood. Gastrointestinal: The patient denies difficulty swallowing, denies acid reflux, notes ulcers, denies vomiting, denies jaundice/hepatitis, denies gallbladder problems, denies black or tarry stools, denies hemorrhoids, denies bleeding from rectum, denies diverticulitis, denies constipation, notes diarrhea, denies loss of stool control, and denies hernias. Kidney/Bladder: The patient denies kidney stones, notes urine infections, and denies bloody urine. Skin: The patient denies a history of skin cancer, denies bleeding/changing moles, and denies a history of skin rash. Neurologic: The patient denies a history of epilepsy/convulsions, denies headaches, denies head/spinal injuries, and denies stroke/TIA. Psychiatric: The patient denies psychiatric medications, denies depression, and denies voices, denies substance abuse. Endocrine: The patient denies thyroid disorders, notes diabetes, and denies hormonal problems. Hematologic: The patient denies a history of bruising, denies bleeding, and denies anemia, denies blood clots. Infections: The patient notes a history of measles and mumps, denies rheumatic fever, and denies sexually transmitted diseases. Musculoskeletal: The patient denies back pain/injury, denies back problems, denies sciatica, notes knee/foot trouble, notes arthritis, or denies gout. When was patient's last Mammogram screening? 2021 Last Colonoscopy: 2011 Erin Scott LPN documented in this encounter [facility] 05-26-2022 History of Presen t illness Narrative This note was created using [employer].. Subjective Rachel Holloway is a 66 year old female. Patient presents with: F/U 6 months SUBJECTIVE: Rachel Holloway is a 66 year old year old lady here today for 6 month follow up appointment for review of medical conditions. Overall doing well. Sugars 95 to 200s; but most are 120s. Rarely sees 200s. HCDPOA is Avel Holloway; also has LW. Will drop off copy Doing well on meds. BP controlled. Lipids also doing fine with Pravachol. PAST MEDICAL HISTORY Diagnosis Date Cough Esophageal reflux Neurogenic bladder 05/2018 Had urodynamics and cystoscopy by Dr. Cortez, she recommends interstim Other and unspecified hyperlipidemia Type II or unspecified type diabetes mellitus without mention of complication, not stated as uncontrolled Unspecified essential hypertension mild Current Outpatient Medications Medication Sig blood sugar diagnostic (BLOOD GLUCOSE TEST) test strip Test blood sugar(s) 2 times daily or as instructed. Dx: Type 2 DM - Controlled E11.9 Insulin: Yes Lancets lancets Test blood sugar(s) 2 times daily or as instructed. Dx: Type 2 DM - Controlled E11.9 Insulin: Yes glipiZIDE (GLUCOTROL) 10 mg tablet Take 1 tablet by mouth twice daily. atenolol (TENORMIN) 25 mg tablet Take 1 tablet by mouth once daily. losartan (COZAAR) 25 mg tablet Take 1 tablet by mouth once daily. metFORMIN ER (GLUCOPHAGE XR) 500 mg 24 hr tablet Take 2 tablets by mouth twice daily. pravastatin (PRAVACHOL) 20 mg tablet Take 1 tablet by mouth daily at bedtime. estradiol (ESTRACE) 0.01 % (0.1 mg/gram) vaginal cream use vaginally once or twice weekly as directed omeprazole (PRILOSEC) 20 mg capsule Take 1 capsule by mouth once daily. insulin glargine (LANTUS SOLOSTAR U-100 INSULIN) 100 unit/mL (3 mL) Inject 24 Units subcutaneously daily at bedtime. insulin needles, DISPOSABLE, (PEN NEEDLE) 31 gauge x 5/16 Use one needle per dose. 1 per day. Diagnosis: 250.02 Cholecalciferol, Vitamin D3, 25 mcg (1,000 unit) cap Take 1 capsule by mouth once daily. Ca/D3/mag ox/zinc/newspaper copy editor/shanelle/bor (CALCIUM 600-D3 PLUS ORAL) Take 1 capsule by mouth once daily. Lancets (ACCU-CHEK SOFTCLIX LANCETS) lancets Use as instructed. Dx: E11.9, Z79.4 . Insulin: Yes. hydroxychloroquine (PLAQUENIL) 200 mg tablet Take 1 tablet by mouth twice daily. (Dr. Albright) aspirin, enteric coated (ASPIRIN, ENTERIC COATED) 81 mg EC tablet Take 81 mg by mouth once daily. MULTIVITAMIN TAB Take one(1) tablet daily. cyclobenzaprine (FLEXERIL) 10 mg tablet Take 1 tablet by mouth every 8 hours as needed (FOR PAIN OR MUSCLE SPASM). (Patient not taking: No sig reported) No current facility-administered medications for this visit. Review of Systems Objective BP 114/70 Pulse 68 Temp (!) 35.9 C (96.6 F) Resp 18 Wt 80.3 kg (177 lb) SpO2 97% BMI 31.11 kg/m Last 5 Encounter Wt Readings: Date: Wt: 05/26/2022 80.3 kg (177 lb) 05/26/2021 81.2 kg (179 lb) 11/06/2020 83 kg (183 lb) 09/02/2020 85.3 kg (188 lb) 03/25/2020 83 kg (183 lb) No waist measurement recorded Estimated body mass index is 31.11 kg/m as calculated from the following: Height as of 02/27/19: 160.7 cm (5' 3.25). Weight as of this encounter: 80.3 kg (177 lb). Last 5 Encounter BP Readings: Date: BP: 05/26/2022 114/70 05/26/2021 118/70 11/06/2020 132/78 09/02/2020 116/78 03/25/2020 114/62 Physical Exam Constitutional: Appearance: Normal appearance. HENT: Head: Normocephalic. Eyes: Conjunctiva/sclera: Conjunctivae normal. Cardiovascular: Rate and Rhythm: Normal rate and regular rhythm. Heart sounds: Normal heart sounds. Pulmonary: Effort: Pulmonary effort is normal. Breath sounds: Normal breath sounds. Skin: General: Skin is warm and dry. Neurological: General: No focal deficit present. Mental Status: She is alert and oriented to person, place, and time. Psychiatric: Mood and Affect: Mood normal. Behavior: Behavior normal. Thought Content: Thought content normal. Judgment: Judgment normal. Component Latest Ref Rng & Units 02/22/2020 11/01/2020 05/26/2021 05/19/2022 Protein, Total 6.3 - 8.0 g/dL 7.3 Albumin 3.9 - 4.9 g/dL 4.5 Calcium 8.5 - 10.2 mg/dL 9.3 9.7 Bilirubin, Total 0.2 - 1.3 mg/dL 0.3 Alkaline Phosphatase 34 - 123 U/L 92 AST 13 - 35 U/L 32 Glucose 74 - 99 mg/dL 153 (H) 180 (H) BUN 7 - 21 mg/dL 9 12 Creatinine 0.58 - 0.96 mg/dL 0.61 0.74 Sodium 136 - 144 mmol/L 138 136 Potassium 3.7 - 5.1 mmol/L 4.0 4.3 Chloride 97 - 105 mmol/L 100 98 CO2 22 - 30 mmol/L 28 26 Anion Gap 9 - 18 mmol/L 10 12 ALT 7 - 38 U/L 34 eGFR- >60 >60 eGFR-All Other Races . >60 >60 WBC 3.70 - 11.00 k/uL 5.54 6.43 RBC 3.90 - 5.20 m/uL 4.38 4.42 Hemoglobin 11.5 - 15.5 g/dL 13.2 13.4 Hematocrit 36.0 - 46.0 % 41.2 39.3 MCV 80.0 - 100.0 fL 94.1 88.9 MCH 26.0 - 34.0 pG 30.1 30.3 MCHC 30.5 - 36.0 g/dL 32.0 34.1 RDW-CV 11.5 - 15.0 % 12.9 12.9 Platelet Count 150 - 400 k/uL 305 319 MPV 9.0 - 12.7 fL 10.9 9.8 Absolute nRBC <0.01 k/uL <0.01 <0.01 Cholesterol, Total <200 mg/dL 173 165 167 Triglyceride <150 mg/dL 135 167 (H) 109 HDL Cholesterol >39 mg/dL 71 72 84 LDL Cholesterol <100 mg/dL 75 60 61 Non HDL Cholesterol <130 mg/dL 102 93 83 Fasting Time hrs 13 10 10 VLDL Cholesterol <30 mg/dL 27 33 (H) 22 TC:HDL Ratio <5.10 2.44 2.29 1.99 LDL:HDL Ratio <2.54 1.06 0.83 0.73 Iron 41 - 186 ug/dL 82 TIBC 232 - 386 ug/dL 372 Transferrin Saturation 15 - 57 % 22 Creatinine, Ur Random (UCRR) 20 - 300 mg/dL 141.2 Albumin, Urine Random mg/L <12.0 Albumin/Creat Ratio <30 mg/g Not calculated Hemoglobin A1C 4.3 - 5.6 % 7.6 (H) 7.4 (H) 7.5 (H) 7.0 (H) Estimated Average Glucose mg/dL 171 166 169 154 Vitamin D 25 Hydroxy 31.0 - 80.0 ng/mL 27.0 (L) 34.6 33.7 Ferritin 14.7 - 205.1 ng/mL 48.4 Assessment and Plan Encounter Diagnosis ICD-10-CM 1. Controlled type 2 diabetes mellitus without complication, with long-term current use of insulin (HCC) E11.9 glipiZIDE (GLUCOTROL) 10 mg tablet Z79.4 insulin glargine-yfgn (SEMGLEE,INSULIN GLARG-YFGN,PEN) 100 unit/mL (3 mL) insulin pen losartan (COZAAR) 25 mg tablet metFORMIN ER (GLUCOPHAGE XR) 500 mg 24 hr tablet HGB A1C COMP METABOLIC PANEL ALBUMIN/CREAT RATIO RND UR Metformin decreased due to still having diarrhea with 3 pills per day; HgAC did improve to 7.0; changed glargine to formulary Semglee 2. Essential hypertension I10 losartan (COZAAR) 25 mg tablet COMP METABOLIC PANEL CBC Well controlled 3. Gastroesophageal reflux disease without esophagitis K21.9 omeprazole (PRILOSEC) 20 mg capsule 4. Mixed hyperlipidemia E78.2 pravastatin (PRAVACHOL) 20 mg tablet LIPID PANEL BASIC All to goals 5. Class 1 obesity due to excess calories with body mass index (BMI) of 31.0 to 31.9 in adult, unspecified whether serious comorbidity present E66.09 Z68.31 Weight gradually going down 6. Vitamin D deficiency E55.9 VITAMIN D 25 HYDROXY Above issues addressed with patient. Patient involved in shared decision making for management of medical issues. History and medications reviewed. Epic updated as needed Refills and/or prescriptions taken care of and meds adjusted as indicated after reviewed history, exam and labs. Health Maintenance reviewed. Updated record and/or ordered tests as recorded. Encouraged on efforts at healthy diet and regular exercise and adequate sleep. Needs to keep working on diet and exercise with lifestyle changes for effective weight loss as well as control of DM, and control of BP and lipids. Iglesia Messina MD documented in this encounter [facility] 03-31-2022 Miscellaneous Notes March 31, 2022 PID: [id number] Rachel Holloway [address] [id number] Dear Ms. Holloway, We are pleased to inform you that the results of your recent breast imaging exam on 03/30/2022 are normal. Early detection of cancer is very important. We also understand recommendations regarding breast cancer screening are controversial. Please discuss with your primary care provider which strategy is best for you and whether a mammogram is right for you. Your imaging studies and report will be kept on file at [facility] as part of your permanent medical record and are available for your continuing care. Thank you for allowing us to help in meeting your health care needs. Sincerely, Dr. Nino Interpreting Radiologist [facility] (Normal over 40) documented in this encounter [facility] 03-30-2022 History of Presen t illness Narrative Radiology Service Progress Note PATIENT NAME: Rachel Holloway DATE OF SERVICE: March 30, 2022 TIME: 11:49 AM PATIENT IDENTITY VERIFICATION COMPLETED USING TWO (2) IDENTIFIERS: Name and Date of confirmed by patient verbally. FALL SCREENING: Has the patient had 2 falls in the last year or 1 fall with injury or currently using an Ambulatory Assistive Device (Walker, Cane, Wheelchair, Crutches, etc.)? No PATIENT GENDER DATA: Female. status: : No status: NO. PATIENT RELEVANT IMPLANT DATA REVIEWED: Not Applicable RADIOLOGY DEPARTMENT: Mammography PERIPHERAL IV DATA: Not applicable SIGNED BY: RT Mo(R) March 30, 2022 11:49 AM documented in this encounter [facility] 10-15-2021 Miscellaneous Notes Was previously addressed and ordered. Rebekah Cope APRN.CNP documented in this encounter [facility] 09-12-2021 Miscellaneous Notes Patient notified that prescription was sent to the pharmacy and she verbalized understanding The following approved medication requests have been transmitted electronically. Signed Prescriptions Disp Refills glipiZIDE (GLUCOTROL) 10 mg tablet 180 tablet 3 Sig: Take 1 tablet by mouth twice daily. ANDIE: No Authorizing Provider: IGLESIA MESSINA MD Patient Rachel called, she is taking prescription-glipiZIDE (GLUCOTROL) 5 mg tabs, insurance needs to change to 10 mg tabs twice daily. Please send to [facility] and update Rachel when completed, . documented in this encounter [facility] 09-02-2020 History of Presen t illness Narrative Radiology Service Progress Note PATIENT NAME: Rachel Holloway DATE OF SERVICE: September 02, 2020 TIME: 10:14 AM PATIENT IDENTITY VERIFICATION COMPLETED USING TWO (2) IDENTIFIERS: Name and Date of confirmed by patient verbally. FALL SCREENING: Has the patient had 2 falls in the last year or 1 fall with injury or currently using an Ambulatory Assistive Device (Walker, Cane, Wheelchair, Crutches, etc.)? No PATIENT GENDER DATA: Female. status: : No status: NO. PATIENT RELEVANT IMPLANT DATA REVIEWED: Not Applicable RADIOLOGY DEPARTMENT: General X-ray: Exam(s) Completed: Lower Extremity X-Ray(s): Foot, Left and Wt. Bearing PERIPHERAL IV DATA: Not applicable SIGNED BY: RT Erick(R) September 02, 2020 10:14 AM documented in this encounter [facility] 01-22-2014 History of Past i llness Narrative Problem Noted Date Resolved Date Hip pain, left 01/22/2014 12/12/2014 Cough 08/27/2008 documented as of this encounter (statuses as of 09/12/2021) [facility] History of Past illness Narrative* Problem Noted Date Resolved Date Hip pain, left 01/22/2014 12/12/2014 Cough 08/27/2008 documented as of this encounter (statuses as of 10/15/2021) [facility] of Past illness Narrative* Problem Noted Date Resolved Date Hip pain, left 01/22/2014 12/12/2014 Cough 08/27/2008 documented as of this encounter (statuses as of 02/11/2022) [facility] of Past illness Narrative* Problem Noted Date Resolved Date Hip pain, left 01/22/2014 12/12/2014 Cough 08/27/2008 documented as of this encounter (statuses as of 02/25/2022) [facility] of Past illness Narrative* Problem Noted Date Resolved Date Hip pain, left 01/22/2014 12/12/2014 Cough 08/27/2008 documented as of this encounter (statuses as of 03/27/2022) [facility] of Past illness Narrative* Problem Noted Date Resolved Date Hip pain, left 01/22/2014 12/12/2014 Cough 08/27/2008 documented as of this encounter (statuses as of 04/02/2022) [facility] of Past illness Narrative* Problem Noted Date Resolved Date Hip pain, left 01/22/2014 12/12/2014 Cough 08/27/2008 documented as of this encounter (statuses as of 05/27/2022) [facility] of Past illness Narrative* Problem Noted Date Resolved Date Hip pain, left 01/22/2014 12/12/2014 Cough 08/27/2008 documented as of this encounter (statuses as of 05/29/2022) [facility] of Past illness Narrative* Problem Noted Date Resolved Date Hip pain, left 01/22/2014 12/12/2014 Cough 08/27/2008 documented as of this encounter (statuses as of 06/10/2022) [facility] of [facility] illness Narrative* Problem Noted Date Resolved Date Hip pain, left 01/22/2014 12/12/2014 Cough 08/27/2008 documented as of this encounter (statuses as of 08/10/2022) [facility] of [facility] Narrative* Problem Noted Date Resolved Date Hip pain, left 01/22/2014 12/12/2014 Cough 08/27/2008 documented as of this encounter (statuses as of 08/11/2022) [facility] of [facility] Narrative* Problem Noted Date Resolved Date Hip pain, left 01/22/2014 12/12/2014 Cough 08/27/2008 documented as of this encounter (statuses as of 08/11/2022) [facility] of [facility] illness Narrative* Problem Noted Date Resolved Date Hip pain, left 01/22/2014 12/12/2014 Cough 08/27/2008 documented as of this encounter (statuses as of 08/25/2022) [facility] Narrative* Problem Noted Date Diagnosed Date Resolved Date Hip pain, left 01/22/2014 12/12/2014 Cough 08/27/2008 documented as of this encounter (statuses as of 01/25/2023) [facility] Narrative* Problem Noted Date Diagnosed Date Resolved Date Hip pain, left 01/22/2014 12/12/2014 Cough 08/27/2008 documented as of this encounter (statuses as of 02/21/2023) [facility] Narrative* Problem Noted Date Diagnosed Date Resolved Date Hip pain, left 01/22/2014 12/12/2014 Cough 08/27/2008 documented as of this encounter (statuses as of 02/21/2023) [facility] of [facility] Narrative* Problem Noted Date Diagnosed Date Resolved Date Hip pain, left 01/22/2014 12/12/2014 Cough 08/27/2008 documented as of this encounter (statuses as of 03/15/2023) [facility] of [facility] Narrative* Problem Noted Date Diagnosed Date Resolved Date Hip pain, left 01/22/2014 12/12/2014 Cough 08/27/2008 documented as of this encounter (statuses as of 07/01/2023) [facility] of Past illness Narrative* Problem Noted Date Diagnosed Date Resolved Date Hip pain, left 01/22/2014 12/12/2014 Cough 08/27/2008 documented as of this encounter (statuses as of 07/01/2023) [facility] Narrative* Problem Noted Date Diagnosed Date Resolved Date Hip pain, left 01/22/2014 12/12/2014 Cough 08/27/2008 documented as of this encounter (statuses as of 07/01/2023) [facility] of [facility] Narrative* Problem Noted Date Diagnosed Date Resolved Date Hip pain, left 01/22/2014 12/12/2014 Cough 08/27/2008 documented as of this encounter (statuses as of 07/05/2023) [facility] of [facility] illness Narrative* Problem Noted Date Diagnosed Date Resolved Date Hip pain, left 01/22/2014 12/12/2014 Cough 08/27/2008 documented as of this encounter (statuses as of 07/06/2023) [facility] Controlled type 2 diabetes mellitus without complication, with long-term current use of insulin (HCC) [facility]* Diagnosis Controlled type 2 diabetes mellitus without complication, with long-term current use of insulin (HCC) documented in this encounter [facility] note* Diagnosis Encounter for screening mammogram for breast cancer- Primary documented in this encounter [facility] note* Diagnosis Controlled type 2 diabetes mellitus without complication, with long-term current use of insulin (HCC)- Primary Essential hypertension Unspecified essential hypertension Gastroesophageal reflux disease without esophagitis Esophageal reflux Mixed hyperlipidemia Class 1 obesity due to excess calories with body mass index (BMI) of 31.0 to 31.9 in adult, unspecified whether serious comorbidity present Vitamin D deficiency Unspecified vitamin D deficiency Colon cancer screening Special screening for malignant neoplasms, colon Encounter for immunization Need for other specified prophylactic vaccination against single bacterial disease documented in this encounter [facility] note* Diagnosis Colon cancer screening Special screening for malignant neoplasms, colon documented in this encounter [facility] note* Diagnosis Essential hypertension Unspecified essential hypertension Screening for colon cancer- Primary Special screening for malignant neoplasms, colon [facility] Diagnosis Dizziness- Primary Dizziness and giddiness Neck pain Cervicalgia documented in this encounter [facility] note* Diagnosis Neck pain- Primary Cervicalgia documented in this encounter [facility] note* Diagnosis Neck pain- Primary Cervicalgia Post-nasal drainage Unspecified sinusitis (chronic) Seasonal allergic rhinitis, unspecified trigger Controlled type 2 diabetes mellitus without complication, with long-term current use of insulin (HCC) Essential hypertension Unspecified essential hypertension documented in this encounter [facility] note* Diagnosis Controlled type 2 diabetes mellitus without complication, with long-term current use of insulin (HCC)- Primary Diarrhea, unspecified type Essential hypertension Unspecified essential hypertension Vitamin D deficiency Unspecified vitamin D deficiency Mixed hyperlipidemia Allergic rhinitis, unspecified seasonality, unspecified trigger [facility] Diagnosis Encounter for screening mammogram for breast cancer [facility] Diagnosis Neck pain Cervicalgia documented in this encounter [facility] note* Diagnosis Screening for colon cancer- Primary Special screening for malignant neoplasms, colon Colon cancer screening Special screening for malignant neoplasms, colon [facility] Diagnosis Screening mammogram for breast cancer- Primary [facility] Diagnosis Controlled type 2 diabetes mellitus without complication, with long-term current use of insulin (HCC) [facility] Diagnosis Essential hypertension Unspecified essential hypertension [facility] Diagnosis Controlled type 2 diabetes mellitus without complication, with long-term current use of insulin (HCC) [facility] Diagnosis Controlled type 2 diabetes mellitus without complication, with long-term current use of insulin (HCC)- Primary Gastroesophageal reflux disease without esophagitis Esophageal reflux Mixed hyperlipidemia Vitamin D deficiency Unspecified vitamin D deficiency Class 1 obesity due to excess calories with body mass index (BMI) of 32.0 to 32.9 in adult, unspecified whether serious comorbidity present Encounter for long-term current use of medication Encounter for immunization Need for other specified prophylactic vaccination against single bacterial disease [facility] Diagnosis Controlled type 2 diabetes mellitus without complication, with long-term current use of insulin (HCC) Essential hypertension Unspecified essential hypertension [facility] Diagnosis Foot pain, left Pain in limb [facility] Diagnosis Controlled type 2 diabetes mellitus without complication, with long-term current use of insulin (HCC) [facility] Diagnosis Benign paroxysmal positional vertigo, unspecified laterality [facility] Diagnosis Benign paroxysmal positional vertigo of right ear- Primary [facility] Diagnosis Controlled type 2 diabetes mellitus without complication, with long-term current use of insulin (HCC)- Primary Benign paroxysmal positional vertigo, unspecified laterality Seasonal allergic rhinitis, unspecified trigger Post-nasal drainage Unspecified sinusitis (chronic) Essential hypertension Unspecified essential hypertension Vitamin D deficiency Unspecified vitamin D deficiency Mixed hyperlipidemia Encounter for screening mammogram for breast cancer Screening for depression Encounter for screening examination for other mental health and behavioral disorders Encounter for long-term current use of medication [facility] Diagnosis Encounter for screening mammogram for breast cancer [facility] Diagnosis Subacute cough- Primary Cough Subacute cough Cough documented in this encounter [facility] note* Diagnosis Subacute cough Cough documented in this encounter [facility] note* Diagnosis Subacute cough- Primary Cough documented in this encounter [facility] note* Diagnosis Essential hypertension- Primary Unspecified essential hypertension Controlled type 2 diabetes mellitus without complication, with long-term current use of insulin (HCC) Gastroesophageal reflux disease without esophagitis Esophageal reflux Mixed hyperlipidemia Vitamin D deficiency Unspecified vitamin D deficiency Encounter for immunization Need for other specified prophylactic vaccination against single bacterial disease documented in this encounter [facility] note* Diagnosis Urinary tract infection with hematuria, site unspecified- Primary Nausea Nausea alone Diarrhea, unspecified type SOB (shortness of breath) Shortness of breath PND (paroxysmal nocturnal dyspnea) Other dyspnea and respiratory abnormality Controlled type 2 diabetes mellitus without complication, with long-term current use of insulin ([facility]) Essential hypertension Unspecified essential hypertension documented in this encounter [facility] note* Diagnosis Controlled type 2 diabetes mellitus without complication, with long-term current use of insulin ([facility]) documented in this encounter [facility]* Diagnosis Urinary tract infection with hematuria, site unspecified- Primary Microscopic hematuria Urinary, incontinence, stress female Female stress incontinence Atrophic vaginitis Postmenopausal atrophic vaginitis Fatigue, unspecified type Constipation, unspecified constipation type Seasonal allergic rhinitis, unspecified trigger Iron deficiency anemia, unspecified iron deficiency anemia type Gastroesophageal reflux disease without esophagitis Esophageal reflux Acute cough Hot flashes Symptomatic menopausal or female climacteric states documented in this encounter [facility] for referral (narrative)* Diagnostic Procedure Only (Routine) - Pending Review Specialty Diagnoses / Procedures Referred By Velma morgan Referred To Contact [facility] Diagnoses Encounter for screening mammogram for breast cancer Procedures DEDE SCREENING SCREENING MAMMOGRAPHY BI 2-VIEW BREAST INC Tory Llanos APRN.CNP [address] [place] [address] [facility] [address] [place] [phone] Referral ID Status Reason Start Date Expiration Date Visits Requested Visits Authorized [id number] Pending Review Auto-Generat ed Referral 03/27/2022 04/26/2023 1 1 [facility] for referral (narrative)* Outpatient Procedure (Routine) - Authorized Specialty Diagnoses / Procedures Referred By [facility] Referred To Contact [facility] Diagnoses Colon cancer screening Procedures COLONOSCOPY DIAGNOSTIC COLONOSCOPY FLX DX W/COLLJ SPEC WHEN BLANCARMD Artis Bradford MD [address] [place] [address] [facility] [address] [place] [address] Referral ID Status Reason Start Date Expiration Date Visits Requested Visits Authorized [id number] Authorized Auto-Generat ed Referral 05/29/2022 05/29/2023 1 1 [facility] for referral (narrative)* Diagnostic Procedure Only (Urgent) - Closed Specialty Diagnoses / Procedures Referred By [facility] Referred To Contact [facility] Diagnoses Neck pain Procedures XR CERV OTHER 4V AP/LAT/OBL RADEX SPINE CERVICAL 4 OR 5 VIEWS Dia Garcia PA-C [address] [place], [place] [id number] [facility] Referral ID Status Reason Start Date Expiration Date V isits Requested Visits Authorized [id number] Closed Auto-Generate d Referral 08/10/2022 09/09/2023 1 1 [facility] for referral (narrative)* Diagnostic Procedure Only (Routine) - Closed Specialty Diagnoses / Procedures Referred By [facility] Referred To Contact [facility] Diagnoses Encounter for screening mammogram for breast cancer Procedures DEDE SCREENING SCREENING MAMMOGRAPHY BI 2-VIEW BREAST INC Tory Llanos APRN.CNP [address] [place] [address] [facility] [address] [place] [phone] Referral ID Status Reason Start Date Expiration Date V isits Requested Visits Authorized [id number] Closed Auto-Generate d Referral 03/27/2022 04/26/2023 1 1 [facility] for referral (narrative)* Diagnostic Procedure Only (Urgent) - Closed Specialty Diagnoses / Procedures Referred By [facility] Referred To Contact XR IMAGING Diagnoses Neck pain Procedures XR CERV OTHER 4V AP/LAT/OBL RADEX SPINE CERVICAL 4 OR 5 VIEWS Dia Garcia PA-C [address] [place] [address] [place] [address] Referral ID Status Reason Start Date Expiration Date V isits Requested Visits Authorized [id number] Closed Auto-Generate d Referral 08/10/2022 09/09/2023 1 1 [facility] for referral (narrative)* Outpatient Procedure (Routine) - Closed Specialty Diagnoses / Procedures Referred By [facility] Referred To Contact [facility] Diagnoses Colon cancer screening Procedures COLONOSCOPY DIAGNOSTIC COLONOSCOPY FLX DX W/COLLJ SPEC WHEN PFRMD Artis Bradford MD [address] [place] [address] [facility] [address] [place] [address] Referral ID Status Reason Start Date Expiration Date V isits Requested Visits Authorized [id number] Closed Auto-Generate d Referral 05/29/2022 05/29/2023 1 1 [facility] for referral (narrative)* Diagnostic Procedure Only (Routine) - Authorized Specialty Diagnoses / Procedures Referred By [facility] Referred To Contact BR IMAGING Diagnoses Screening mammogram for breast cancer Procedures DEDE SCREENING SCREENING MAMMOGRAPHY BI 2-VIEW BREAST INC Tory Llanos APRN.CNP [address] [place] [address] [facility] [address] [place] [address] Referral ID Status Reason Start Date Expiration Date Visits Requested Visits Authorized [id number] Authorized Auto-Generat ed Referral 04/06/2024 1 [facility] Diagnostic Procedure Only (Routine) - Authorized Specialty Diagnoses / Procedures Referred By Velma morgan Referred To Contact BR IMAGING Diagnoses Encounter for screening mammogram for breast cancer Procedures DEDE SCREENING SCREENING MAMMOGRAPHY BI 2-VIEW BREAST INC CAD Iglesia Messina MD [address] [place] [address] [facility] [address] [place] [address] Referral ID Status Reason Start Date Expiration Date Visits Requested Visits Authorized [id number] Authorized Auto-Generat ed Referral 01/19/2024 02/17/2025 1 1 * Physical Therapy (Routine) - Authorized Specialty Diagnoses / Procedures Referred By Velma morgan Referred To Contact [facility] Diagnoses Benign paroxysmal positional vertigo, unspecified laterality Procedures CONSULT TO PHYSICAL THERAPY PHYSICAL THERAPY EVALUATION HIGH COMPLEX 45 MINS Iglesia Messina MD [address] [place] [id number] [facility] [address] [place] [id number] Referral ID Status Reason Start Date Expiration Date Visits Requested Visits Authorized [id number] Authorized Auto-Generat ed Referral 04/19/2023 04/18/2024 99 99 [facility]No reason for referral information availableWMcKit[facility] Work Phone: Reason for visit Narrative* Diagnostic Procedure Only (Routine) - Closed Specialty Diagnoses / Procedures Referred By Velma morgan Referred To Contact BR IMAGING Diagnoses Encounter for screening mammogram for breast cancer Procedures DEDE SCREENING SCREENING MAMMOGRAPHY BI 2-VIEW BREAST INC CAD Tory Morales APRN.RECRUITING ADMINISTRATOR [address] [place] [address] [facility] [address] [place] [address] Referral ID Status Reason Start Date Expiration Date V isits Requested Visits Authorized [id number] Closed Auto-Generate d Referral 03/27/2022 04/26/2023 1 1 [facility] for visit Narrative* Diagnostic Procedure Only (Urgent) - Closed Specialty Diagnoses / Procedures Referred By [facility] Referred To Contact XR IMAGING Diagnoses Neck pain Procedures XR CERV OTHER 4V AP/LAT/OBL RADEX SPINE CERVICAL 4 OR 5 VIEWS Dia Garcia PA-C [address] [place] [address] Xr Imaging [facility] Referral ID Status Reason Start Date Expiration Date V isits Requested Visits Authorized [id number] Closed Auto-Generate d Referral 08/10/2022 09/09/2023 1 1 [facility] for visit Narrative* Outpatient Procedure (Routine) - Closed Specialty Diagnoses / Procedures Referred By [facility] Referred To Contact [facility] Diagnoses Colon cancer screening Procedures COLONOSCOPY DIAGNOSTIC COLONOSCOPY FLX DX W/COLLJ SPEC WHEN PFRMD Artis Bradford MD [address] [place] [id number] [facility] [address] [place] [address] Referral ID Status Reason Start Date Expiration Date V isits Requested Visits Authorized [id number] Closed Auto-Generate d Referral 05/29/2022 05/29/2023 1 1 [facility] for visit Narrative* Diagnostic Procedure Only (Routine) - Closed Specialty Diagnoses / Procedures Referred By [facility] Referred To Contact BR IMAGING Diagnoses Encounter for screening mammogram for breast cancer Procedures DEDE SCREENING SCREENING MAMMOGRAPHY BI 2-VIEW BREAST INC CAD Iglesia Messina MD [address] [place] [address] [facility] [address] [place] [address] Referral ID Status Reason Start Date Expiration Date V isits Requested Visits Authorized [id number] Closed Auto-Generate d Referral 01/19/2024 02/17/2025 1 1 [facility] Chief Complaint and Reason for Visit Chief Complaint PAIN- COPY PCP Chief Complaint OSTEOARTHRITIS Chief Complaint Admit Date General illness August 27, 2024 9:32p m Chief Complaint Admit Date General illness August 27, 2024 9:32p m PAIN- COPY PCP October 13, 2024 8:10 am Advance Directives No Advanced Directives Records Found Advance Directive Response Recorded Date/ Time Living Will Yes December 04 8:41am Power of Front Office Director Yes December 04 8:41am Advance Directive Response Recorded Date/ Time Living Will Yes December 04 7:41am Power of Front Office Director Yes December 04 7:41am Documents on File Type Date Recorded Patient Helminthologist Expl anation Advance Directive(s) 06/11/2022 7:29 AM Documents on File Type Date Recorded Patient Helminthologist Expl anation Advance Directive(s) 06/11/2022 7:29 AM Advance Directive Response Recorded Date/ Time Do you have a Healthcare Power of Front Office Director? No August 27, 2024 9:42pm Reason for Referral Specialty Diagnoses / Procedures Referred By Velma morgan Referred To Contact General Surgery Diagnoses Colon cancer screening Procedures CONSULT TO GENERAL SURGERY OFFICE/OUTPATIENT [facility] 60-74 MINUTES Iglesia Messina MD [address] [place] [address] Artis Bradford MD [address] [place] [address] Referral ID Status Reason Start Date Expiration Date Visits Requested Visits Authorized [id number] Pending Review PCP Requested Referral 05/26/2022 05/26/2023 1 1 Medications Administered Section Inactive Administered Medications - up to 3 most recent administrations Medication Order MAR Action Action Date Dose Rate Site fentaNYL 50 mcg/mL 25-100 mcg injection (SUBLIMAZE) 25-100 mcg, INTRAVENOUS, DIRECTED, Starting on Nica 06/11/22 at 0830, Until Nica 06/11/22 at 1229, DOSING DIRECTED BY PHYSICIAN FOR PROCEDURAL SEDATION ONLY, Intraprocedure Given 06/11/2022 8:02 AM EST 50 mcg lactated ringers iv infusion 30 mL/hr, INTRAVENOUS, CONTINUOUS, Starting on Nica 06/11/22 at 0800, Until Nica 06/11/22 at 0824, Preprocedure New Bag/Syringe/Bottle 06/11/2022 7:50 AM EST 30 mL/hr 30 mL/hr midazolam 1-5 mg injection (VERSED) 1-5 mg, INTRAVENOUS, DIRECTED, Starting on Nica 06/11/22 at 0830, Until Nica 06/11/22 at 1229, DOSING DIRECTED BY PHYSICIAN FOR PROCEDURAL SEDATION ONLY, Intraprocedure Given 06/11/2022 8:08 AM EST 2 mg Given 06/11/2022 8:02 AM EST 3 mg Summary Purpose Family History No Family History Records FoundNo Family History Records Found Additional Source Comments Source Comments (unrecognize d section and content) In the event this informatio n is protected by the Federal Confidentiality of Alcohol and Drug Abuse Patient Records regulations: The Federal rules restrict any use of the information to criminally investigate or prosecute any alcohol or drug abuse patient.[facility] the event this information is protected by the Federal Confidentiality of Alcohol and Drug Abuse Patient Records regulations: The Federal rules restrict any use of the information to criminally investigate or prosecute any alcohol or drug abuse patient.[facility] HospitalIn the event this information is protected by the Federal Confidentiality of Alcohol and Drug Abuse Patient Records regulations: The Federal rules restrict any use of the information to criminally investigate or prosecute any alcohol or drug abuse patient.[facility] HospitalIn the event this information is protected by the Federal Confidentiality of Alcohol and Drug Abuse Patient Records regulations: The Federal rules restrict any use of the information to criminally investigate or prosecute any alcohol or drug abuse patient.[facility] HospitalIn the event this information is protected by the Federal Confidentiality of Alcohol and Drug Abuse Patient Records regulations: The Federal rules restrict any use of the information to criminally investigate or prosecute any alcohol or drug abuse patient.[facility] HospitalIn the event this information is protected by the Federal Confidentiality of Alcohol and Drug Abuse Patient Records regulations: The Federal rules restrict any use of the information to criminally investigate or prosecute any alcohol or drug abuse patient.[facility] HospitalIn the event this information is protected by the Federal Confidentiality of Alcohol and Drug Abuse Patient Records regulations: The Federal rules restrict any use of the information to criminally investigate or prosecute any alcohol or drug abuse patient.[facility] HospitalIn the event this information is protected by the Federal Confidentiality of Alcohol and Drug Abuse Patient Records regulations: The Federal rules restrict any use of the information to criminally investigate or prosecute any alcohol or drug abuse patient.[facility] HospitalIn the event this information is protected by the Federal Confidentiality of Alcohol and Drug Abuse Patient Records regulations: The Federal rules restrict any use of the information to criminally investigate or prosecute any alcohol or drug abuse patient.[facility] HospitalIn the event this information is protected by the Federal Confidentiality of Alcohol and Drug Abuse Patient Records regulations: The Federal rules restrict any use of the information to criminally investigate or prosecute any alcohol or drug abuse patient.[facility] HospitalIn the event this information is protected by the Federal Confidentiality of Alcohol and Drug Abuse Patient Records regulations: The Federal rules restrict any use of the information to criminally investigate or prosecute any alcohol or drug abuse patient.[facility] HospitalIn the event this information is protected by the Federal Confidentiality of Alcohol and Drug Abuse Patient Records regulations: The Federal rules restrict any use of the information to criminally investigate or prosecute any alcohol or drug abuse patient.[facility] HospitalIn the event this information is protected by the Federal Confidentiality of Alcohol and Drug Abuse Patient Records regulations: The Federal rules restrict any use of the information to criminally investigate or prosecute any alcohol or drug abuse patient.[facility] HospitalIn the event this information is protected by the Federal Confidentiality of Alcohol and Drug Abuse Patient Records regulations: The Federal rules restrict any use of the information to criminally investigate or prosecute any alcohol or drug abuse patient.[facility] HospitalIn the event this information is protected by the Federal Confidentiality of Alcohol and Drug Abuse Patient Records regulations: The Federal rules restrict any use of the information to criminally investigate or prosecute any alcohol or drug abuse patient.[facility] HospitalIn the event this information is protected by the Federal Confidentiality of Alcohol and Drug Abuse Patient Records regulations: The Federal rules restrict any use of the information to criminally investigate or prosecute any alcohol or drug abuse patient.[facility] HospitalIn the event this information is protected by the Federal Confidentiality of Alcohol and Drug Abuse Patient Records regulations: The Federal rules restrict any use of the information to criminally investigate or prosecute any alcohol or drug abuse patient.[facility] HospitalIn the event this information is protected by the Federal Confidentiality of Alcohol and Drug Abuse Patient Records regulations: The Federal rules restrict any use of the information to criminally investigate or prosecute any alcohol or drug abuse patient.[facility] HospitalIn the event this information is protected by the Federal Confidentiality of Alcohol and Drug Abuse Patient Records regulations: The Federal rules restrict any use of the information to criminally investigate or prosecute any alcohol or drug abuse patient.[facility] HospitalIn the event this information is protected by the Federal Confidentiality of Alcohol and Drug Abuse Patient Records regulations: The Federal rules restrict any use of the information to criminally investigate or prosecute any alcohol or drug abuse patient.[facility] HospitalIn the event this information is protected by the Federal Confidentiality of Alcohol and Drug Abuse Patient Records regulations: The Federal rules restrict any use of the information to criminally investigate or prosecute any alcohol or drug abuse patient.[facility] HospitalIn the event this information is protected by the Federal Confidentiality of Alcohol and Drug Abuse Patient Records regulations: The Federal rules restrict any use of the information to criminally investigate or prosecute any alcohol or drug abuse patient.[facility] HospitalIn the event this information is protected by the Federal Confidentiality of Alcohol and Drug Abuse Patient Records regulations: The Federal rules restrict any use of the information to criminally investigate or prosecute any alcohol or drug abuse patient.[facility] HospitalIn the event this information is protected by the Federal Confidentiality of Alcohol and Drug Abuse Patient Records regulations: The Federal rules restrict any use of the information to criminally investigate or prosecute any alcohol or drug abuse patient.[facility] HospitalIn the event this information is protected by the Federal Confidentiality of Alcohol and Drug Abuse Patient Records regulations: The Federal rules restrict any use of the information to criminally investigate or prosecute any alcohol or drug abuse patient.[facility] HospitalIn the event this information is protected by the Federal Confidentiality of Alcohol and Drug Abuse Patient Records regulations: The Federal rules restrict any use of the information to criminally investigate or prosecute any alcohol or drug abuse patient.[facility] HospitalIn the event this information is protected by the Federal Confidentiality of Alcohol and Drug Abuse Patient Records regulations: The Federal rules restrict any use of the information to criminally investigate or prosecute any alcohol or drug abuse patient.[facility] HospitalIn the event this information is protected by the Federal Confidentiality of Alcohol and Drug Abuse Patient Records regulations: The Federal rules restrict any use of the information to criminally investigate or prosecute any alcohol or drug abuse patient.[facility] HospitalIn the event this information is protected by the Federal Confidentiality of Alcohol and Drug Abuse Patient Records regulations: The Federal rules restrict any use of the information to criminally investigate or prosecute any alcohol or drug abuse patient.[facility] HospitalIn the event this information is protected by the Federal Confidentiality of Alcohol and Drug Abuse Patient Records regulations: The Federal rules restrict any use of the information to criminally investigate or prosecute any alcohol or drug abuse patient.[facility] HospitalIn the event this information is protected by the Federal Confidentiality of Alcohol and Drug Abuse Patient Records regulations: The Federal rules restrict any use of the information to criminally investigate or prosecute any alcohol or drug abuse patient.[facility] HospitalIn the event this information is protected by the Federal Confidentiality of Alcohol and Drug Abuse Patient Records regulations: The Federal rules restrict any use of the information to criminally investigate or prosecute any alcohol or drug abuse patient.[facility] HospitalIn the event this information is protected by the Federal Confidentiality of Alcohol and Drug Abuse Patient Records regulations: The Federal rules restrict any use of the information to criminally investigate or prosecute any alcohol or drug abuse patient.[facility] HospitalIn the event this information is protected by the Federal Confidentiality of Alcohol and Drug Abuse Patient Records regulations: The Federal rules restrict any use of the information to criminally investigate or prosecute any alcohol or drug abuse patient.[facility] HospitalIn the event this information is protected by the Federal Confidentiality of Alcohol and Drug Abuse Patient Records regulations: The Federal rules restrict any use of the information to criminally investigate or prosecute any alcohol or drug abuse patient.[facility] HospitalIn the event this information is protected by the Federal Confidentiality of Alcohol and Drug Abuse Patient Records regulations: The Federal rules restrict any use of the information to criminally investigate or prosecute any alcohol or drug abuse patient.[facility] HospitalIn the event this information is protected by the Federal Confidentiality of Alcohol and Drug Abuse Patient Records regulations: The Federal rules restrict any use of the information to criminally investigate or prosecute any alcohol or drug abuse patient.[facility] HospitalIn the event this information is protected by the Federal Confidentiality of Alcohol and Drug Abuse Patient Records regulations: The Federal rules restrict any use of the information to criminally investigate or prosecute any alcohol or drug abuse patient.[facility] HospitalIn the event this information is protected by the Federal Confidentiality of Alcohol and Drug Abuse Patient Records regulations: The Federal rules restrict any use of the information to criminally investigate or prosecute any alcohol or drug abuse patient.[facility] HospitalIn the event this information is protected by the Federal Confidentiality of Alcohol and Drug Abuse Patient Records regulations: The Federal rules restrict any use of the information to criminally investigate or prosecute any alcohol or drug abuse patient.[facility] Reason for Visit (unrecogniz ed section and content) Reason Comments Physical Therapy Specialty Diagnoses / Procedures Referred By Contac t Referred To Contact [facility] Diagnoses Benign paroxysmal positional vertigo, unspecified laterality Procedures CONSULT TO PHYSICAL THERAPY PHYSICAL THERAPY EVALUATION HIGH COMPLEX 45 MINS Iglesia Messina MD [address] [place] [address] [facility] [address] [address] Referral ID Status Reason Start Date Expiration Date Visits Requested Visits Authorized [id number] Authorized Auto-Generat ed Referral 04/19/2023 04/18/2024 99 99 Reason Comments Medication Request Reason Comments F/U 6 months Reason Comments Consult colonoscopy Specialty Diagnoses / Procedures Referred By Contac t Referred To Contact General Surgery Diagnoses Colon cancer screening Procedures CONSULT TO GENERAL SURGERY OFFICE/OUTPATIENT [facility] MDM 60-74 MINUTES Iglesia Messina MD [address] [place] [address] Artis Bradford MD [address] [place] [address] Referral ID Status Reason Start Date Expiration Date Visits Requested Visits Authorized [id number] Pending Review PCP Requested Referral 05/26/2022 05/26/2023 1 1 Reason Onset Date Comments Refill Request 06/10/2022 Reason Comments Ear Problem Bilateral ear pressu re, neck pain x 1 week Reason Comments Results Reason Comments Recheck Was seen in urgent c are 08/10/22x-ray and blood pressure Reason Comments Recheck neck pain Reason Comments Follow Up Reason Onset Date Comments Refill Request 07/01/2023 Reason Onset Date Comments Refill Request 07/05/2023 Reason Comments 6 mo follow up Reason Onset Date Comments Refill Request 10/16/2023 Reason Onset Date Comments Refill Request 01/24/2024 Reason Comments PT Eval Physical Therapy Reason Comments F/U 6 months Labs prior Reason Comments Cough Chest congestion x 2 weeks Reason Comments 6 month f/up Reason Comments Hospital F/U Reason Onset Date Comments Refill Request 09/14/2024 Reason Comments abdominal pressure Care Teams (unrecognized sec tion and content) Residential Air Sealing Technician Relationship Specialty Start Date End Date Iglesia Messina MD [address] [place] [address] PCP - General 02/07/02 Residential Air Sealing Technician Relationship Specialty Start Date End Date Iglesia Messina MD [address] [place] [address] PCP - General 02/07/02 Residential Air Sealing Technician Relationship Specialty Start Date End Date Iglesia Messina MD [address] [place] [address] PCP - General 02/07/02 Residential Air Sealing Technician Relationship Specialty Start Date End Date Iglesia Messina MD [address] [place], [place] [id number] PCP - General 02/07/02 Residential Air Sealing Technician Relationship Specialty Start Date End Date Iglesia Messina MD [address] [place] [address] PCP - General 02/07/02 Team Status: Active Member Role Status Dates Dr. Iglesia Messina MD Family Provider Active Dr. Iglesia Messina MD Primary Care Provider Active Team Status: Inactive Member Role Status Dates Dr. Iglesia Messina MD Primary Care Provider Active Dr. Nidia Albright MD Attending Provider, Referring Provider Active Team Status: Active Member Role Status Dates Dr. Iglesia Messina MD Primary Care Provider Active DANIA OBREGON Attending Provider, Referring Suzette arceo Active Residential Air Sealing Technician Relationship Specialty Start Date End Date Iglesia Messina MD [address] [place] [address] PCP - General 02/07/02 Residential Air Sealing Technician Relationship Specialty Start Date End Date Iglesia Messina MD [address] [place] [address] PCP - General 02/07/02 Residential Air Sealing Technician Relationship Specialty Start Date End Date Iglesia Messina MD [address] [facility] [place] [address] PCP - General 02/07/02 Team Status: Inactive Member Role Status Dates Dr. Iglesia Messina MD Primary Care Provider Active DANIA OBREGON Referring Provider Active DANIA LEWIS Attending Provider Active Residential Air Sealing Technician Relationship Specialty Start Date End Date Iglesia Messina MD [address] [facility] [place] [address] PCP - General 02/07/02 Residential Air Sealing Technician Relationship Specialty Start Date End Date Iglesia Messina MD [address] [facility] [place] [address] PCP - General 02/07/02 Residential Air Sealing Technician Relationship Specialty Start Date End Date Iglesia Messina MD [address] [place] [address] PCP - General 02/07/02 Residential Air Sealing Technician Relationship Specialty Start Date End Date Iglesia Messina MD [address] [place] [address] PCP - General 02/07/02 Residential Air Sealing Technician Relationship Specialty Start Date End Date Iglesia Messina MD [address] [place] [address] PCP - General 02/07/02 Residential Air Sealing Technician Relationship Specialty Start Date End Date Iglesia Messina MD [address] [place] [address] PCP - General 02/07/02 Residential Air Sealing Technician Relationship Specialty Start Date End Date Iglesia Messina MD [address] [place] [address] PCP - General 02/07/02 Residential Air Sealing Technician Relationship Specialty Start Date End Date Iglesia Messina MD [address] [place] [address] PCP - General 02/07/02 Residential Air Sealing Technician Relationship Specialty Start Date End Date Iglesia Messina MD [address] [place] [address] PCP - General 02/07/02 Residential Air Sealing Technician Relationship Specialty Start Date End Date Iglesia Messina MD [address] [place] [address] PCP - General 02/07/02 Residential Air Sealing Technician Relationship Specialty Start Date End Date Iglesia Messina MD [address] [place] [address] PCP - General 02/07/02 Residential Air Sealing Technician Relationship Specialty Start Date End Date Iglesia Messina MD [address] [place] [address] PCP - General 02/07/02 Residential Air Sealing Technician Relationship Specialty Start Date End Date Iglesia Messina MD [address] [place] [address] PCP - General 02/07/02 Residential Air Sealing Technician Relationship Specialty Start Date End Date Iglesia Messina MD [address] [place] [address] PCP - General 02/07/02 Residential Air Sealing Technician Relationship Specialty Start Date End Date Iglesia Messina MD [address] [place] [address] PCP - General 02/07/02 Residential Air Sealing Technician Relationship Specialty Start Date End Date Iglesia Messina MD [address] [place] [address] PCP - General 02/07/02 Residential Air Sealing Technician Relationship Specialty Start Date End Date Iglesia Messina MD [address] [place] [address] PCP - General 02/07/02 Residential Air Sealing Technician Relationship Specialty Start Date End Date Iglesia Messina MD [address] [place] [address] PCP - General 02/07/02 Residential Air Sealing Technician Relationship Specialty Start Date End Date Iglesia Messina MD [address] [facility] [place] [address] PCP - General 02/07/02 Ebony Hong, HEALTHCARE OR MEDICAL.DEBUG TECHNICIAN [address] [place] [address] Code Official Internal Medicine 03/27/24 Tory Morales HEALTHCARE OR MEDICAL.RECRUITING ADMINISTRATOR [address] [place] [address] Code Official Internal Medicine 03/27/24 Residential Air Sealing Technician Relationship Specialty Start Date End Date Iglesia Messina MD [address] [place] [address] PCP - General 02/07/02 Ebony Hong, HEALTHCARE OR MEDICAL.DEBUG TECHNICIAN [address] [place] [address] Code Official Internal Medicine 03/27/24 Tory Morales HEALTHCARE OR MEDICAL.RECRUITING ADMINISTRATOR [address] [place] [address] Code Official Internal Medicine 03/27/24 Residential Air Sealing Technician Relationship Specialty Start Date End Date Iglesia Messina MD [address] [place] [address] PCP - General 02/07/02 Ebony Hong, HEALTHCARE OR MEDICAL.DEBUG TECHNICIAN [address] [place] [address] Code Official Internal Medicine 03/27/24 Tory Morales HEALTHCARE OR MEDICAL.RECRUITING ADMINISTRATOR [address] [facility], [place] [address] Code Official Internal Medicine 03/27/24 Residential Air Sealing Technician Relationship Specialty Start Date End Date Iglesia Messina MD [address] [facility] [place], [place] [address] PCP - General 02/07/02 Ebony Hong, HEALTHCARE OR MEDICAL.DEBUG TECHNICIAN [address] [facility] [place], [place] [address] Code Official Internal Medicine 03/27/24 Tory Morales HEALTHCARE OR MEDICAL.RECRUITING ADMINISTRATOR [address] [facility] [place] [address] Code Official Internal Medicine 07/11/24 Team Status: Active Member Role Status Dates Dr. Iglesia Messina MD Primary Care Provider Active Team Status: Inactive Member Role Status Dates Dr. Iglesia Messina MD Primary Care Provider Active Start: August 27, 2024 End: August 28, 2024 Dr. Artis David MD Emergency Provider Active Start: August 27, 2024 End: August 28, 2024 Residential Air Sealing Technician Relationship Specialty Start Date End Date Iglseia Messina MD [address] [facility] [place] [address] PCP - General 02/07/02 Ebony Hong, HEALTHCARE OR MEDICAL.DEBUG TECHNICIAN [address] [facility] [place], [place] [address] Code Official Internal Medicine 03/27/24 Tory Morales HEALTHCARE OR MEDICAL.RECRUITING ADMINISTRATOR [address] [facility] [place] [address] Code Official Internal Medicine 07/11/24 Residential Air Sealing Technician Relationship Specialty Start Date End Date Iglesia Messina MD [address] [facility] [place] [address] PCP - General 02/07/02 Tory Morales HEALTHCARE OR MEDICAL.RECRUITING ADMINISTRATOR [address] [facility] [place] [address] Code Official Internal Medicine 07/11/24 Ebony Hong, HEALTHCARE OR MEDICAL.DEBUG TECHNICIAN [address] [facility] [place] [address] Code Official Internal Medicine 09/06/24 Residential Air Sealing Technician Relationship Specialty Start Date End Date Iglesia Messina MD [address] [facility] [place] [address] PCP - General 02/07/02 Ebony Hong, HEALTHCARE OR MEDICAL.DEBUG TECHNICIAN [address] [facility] [place] [address] Code Official Internal Medicine 03/27/24 09/05/24 Tory Morales, HEALTHCARE OR MEDICAL.RECRUITING ADMINISTRATOR [address] [facility] [place] [address] Code Official Internal Medicine 07/11/24 Ebony Hong, HEALTHCARE OR MEDICAL.DEBUG TECHNICIAN [address] [facility] [place] [address] Code Official Internal Medicine 09/06/24 Residential Air Sealing Technician Relationship Specialty Start Date End Date Iglesia Messina MD [address] [facility] [place] [address] PCP - General 02/07/02 Tory Morales HEALTHCARE OR MEDICAL.RECRUITING ADMINISTRATOR [address] [place] [address] Code Official Internal Medicine 07/11/24 Ebony HongARNALDO.DEBUG TECHNICIAN [address] [place] [address] Code Official Internal Medicine 09/06/24 Team Status: Active Member Role/Relationship Status Dates Dr. Iglesia Messina MD Primary Care Provider Active Team Status: Inactive Member Role/Relationship Status Dates Dr. Iglesia Messina MD Primary Care Provider Active Start: August 27, 2024 End: August 28, 2024 Dr. Artis David MD Attending Provider Active Start: August 27, 2024 End: August 28, 2024 Dr. Artis David MD Emergency Provider Active Start: August 27, 2024 End: August 28, 2024 Team Status: Inactive Member Role/Relationship Status Dates Dr. Iglesia Messina MD Primary Care Provider Active Start: October 13, 2024 End: October 13, 2024 Dr. Nidia Albright MD Attending Provider Active Start: October 13, 2024 End: October 13, 2024 Dr. Nidia Albright MD Referring Provider Active Start: October 13, 2024 End: October 13, 2024 Goals (unrecognized section and content) Goals may be documented in a n alternate sectionGoals may be documented in an alternate sectionGoals may be documented in an alternate sectionGoals may be documented in an alternate sectionGoals may be documented in an alternate sectionGoals may be documented in an alternate sectionGoals may be documented in an alternate section INFORMATION SOURCE (unrecogn ized section and content) DATE CREATED AUTHOR 10/21/2024 [facility] DATE CREATED AUTHOR AUTHOR'S JAMAL CHADWICK 10/21/2024 [facility] FOR RECORDS PERTAINING TO PATIENTS WHO ARE OR HAVE BEEN ENROLLED IN A CHEMICAL DEPENDENCY/SUBSTANCEABUSE PROGRAM, SOME INFORMATION MAY BE OMITTED. This clinical summary was aggregated from multiple sources. Caution should be exercised in using it in the provision of clinical care. This summary normalizes information from multiple sources, and as a consequence, information in this document may materially change the coding, format and clinical context of patient data. In addition, data may be omitted in some cases. CLINICAL DECISIONS SHOULD BE BASED ON THE PRIMARY CLINICAL RECORDS. [facility] [employer] [facility]. provides no warranty or guarantee of the accuracy or completeness of information in this document.
== END | disposition home or self-care (01) ==
PROVIDERS: PCP Internal Medicine; Referring Provider Internal Medicine Rheumatology; Visit Provider Internal Medicine Rheumatology
DX: M06.4 Inflammatory polyarthropathy (principal); Z79.899 Other long term (current) drug therapy; R76.8 Other specified abnormal immunological findings in serum; M19.049 Primary osteoarthritis, unspecified hand; M17.0 Bilateral primary osteoarthritis of knee
CPT/HCPCS: 76705

== ENCOUNTER → 2025-01-05 | Outpatient (CLI) | payer MEDICARE, SELFPAY ==
--- OUTSIDE RECORDS SUMMARY | 2025-01-05 07:24 | XMS RPT_ITS | CCD ---
Author Organization [facility] CliniSyil Care Team Providers Care Maxillofacial Prosthodontist Name Role Phone Iglesia Messina MD Primary Care Provider Iglesia Messina MD Primary Care Provider Hong MORTGAGE ADVISOR.SALES EXPERT, Ebony Unavailable Carmen MORTGAGE ADVISOR.RIB BENDER, Tory Unavailable Carmen MORTGAGE ADVISOR.RIB BENDER, Tory Unavailable Dr. Iglesia Messina MD Primary Care Provider [phone] Joann JACKSON, Dr. Wisdom Emergency Provider Hong MORTGAGE ADVISOR.SALES EXPERT, Ebony Unavailable Hong MORTGAGE ADVISOR.SALES EXPERT, Ebony Unavailable Dr. Artis David MD Attending Provider Natalee JACKSON, Dr. Jacob Attending Provider Natalee JACKSON, Dr. Jacob Referring Provider TALAMPAS, IGLESIA D Primary Care Unavailable TALAMPAS, IGLESIA D Attending Unavailable HONG, EBONY Attending Unavailable TALAMPAS, IGLESIA D Primary Care Unavailable TALAMPAS, IGLESIA D Primary Care Unavailable HONG, EBONY Referring Unavailable TALAMPAS, IGLESIA [...] Unavailable TALAMPAS, IGLESIA D Primary Care Unavailable ADAMS, SONNY J Referring Unavailable TALAMPAS, IGLESIA D Primary Care Unavailable TALAMPAS, IGLESIA D Primary Care Unavailable TALAMPAS, IGLESIA D Referring Unavailable TALAMPAS, IGLESIA D Primary Care Unavailable EFREN MACIAS Attending Unavailable TALAMPAS, IGLESIA D Referring Unavailable TALAMPAS, IGLESIA D Primary Care Unavailable GOLIAS, EFREN Attending Unavailable TALAMPAS, IGLESIA D Referring Unavailable Vellanki, Nidia Referring Unavailable Vellanki, Nidia Attending Unavailable Talampas, Iglesia D Primary Care Unavailable Artis David Attending Unavailable Talampas, Iglesia D Primary Care Unavailable Jackie Pereira Attending Unavailable Talampas, Iglesia D Primary Care Unavailable Vellanki, Nidia Referring Unavailable Vellanki, Nidia Attending Unavailable Talampas, Iglesia D Primary Care Unavailable Vellanki, Nidia Referring Unavailable Vellanki, Nidia Attending Unavailable Talampas, Iglesia D Primary Care Unavailable Allergies Allergy Classification Reported Allergen(s) Allergy Type Date of Onset Reaction(s) Facility (20 sources) Lisinopril; Translations: [LISINOPRIL] Drug Allergy 03-09-2011 Cough [facility] Work Phone: Medications Current Medications Medication Drug Class(es) Dates Sig (Normalized) Sig (Original) [id number] 200 actuat albuterol 0.09 mg/actuat metered dose inhaler (7 sources) beta2-Adrenergic Agonist Start: 04-28-2024 take 1-2 [...] oral tablet (20 sources) beta-Adrenergic Britta Start: 06-02-2024 take 1 tablet by mouth once daily atenolol (TENORMIN) 25 mg tablet Indications: Essential hypertension Take 1 tablet by mouth once daily. 90 tablet 3 06/02/2024 Active Start: 07-20-2018 End: 07-01-2023 take 1 tablet by mouth once daily Atenolol 25 tablet A ctive 25 mg PO DAILY July 20, 2018 12:00am Comment on above: Take 1 tablet by krystal once daily. azelastine hydrochloride 0.206 mg/actuat metered dose nasal spray (20 sources) Histamine-1 Receptor Antagonist Start: 3 End: 4 take 1 spray(s) nasal route once daily Azelastine (ASTEPRO ALLERGY) 205.5 mcg (0.15 %) spry Indications: Post-nasal drainage , Seasonal allergic rhinitis, unspecified trigger Use 1 [place] in each nostril once daily. 3 Each 01/19/2024 Active Comment on above: Use 1 [place] in each nostril once daily. benzonatate 100 mg oral capsule (3 sources) Non-narcotic Antitussive Start: 5 End: 5 take 1 capsule by mouth every eight hours as needed for cough and cough benzonatate (TESSALON PERLE) 100 mg capsule Indications: Subacute cough Take 1 capsule by mouth every 8 hours as needed for cough for up to 15 days. 30 capsule 04/26/2024 05/11/2024 Active Ca-D3-Mag Xd-Nemo-Iab-Shanelle-Bor (Calcium 600-D3 Plus (Mag-Zinc)) 600 mg calcium- 20 mcg-50 mg tablet (3 sources) Start: 4 Ca-D3-Mag Ju-Rlzm-Xqv-Shanelle-Herb r (Calcium 600-D3 Plus (Mag-Zinc)) 600 mg calcium- 20 mcg-50 mg tablet Active 1 {tbl} PO DAILY December 31, 2023 12:00am Ca/D3/mag ox/zinc/ad copy writer/shanelle/bor (CALCIUM 600-D3 PLUS ORAL) (20 sources) Ca/D3/mag ox/zinc/ad copy writer/shanelle/herb r (CALCIUM 600-D3 PLUS ORAL) Take 1 capsule by mouth once daily. Active Ca/D3/mag ox/zin c/ad copy writer/shanelle/bor (CALCIUM 600-D3 PLUS ORAL) Take 1 capsule by mouth once daily. 0 Active Comment on above: Take 1 capsule by mo uth once daily. cephalexin 500 mg oral capsule (3 sources) Cephalosporin Antibacterial Start: 08-28-19 take 1 [...] on above: Take 1 capsule by mo uth once daily. estradiol 0.1 mg/ml vaginal cream [...] two times a day. 180 tablet 3 06/02/2024 Active Start: 09-12-2021 End: 07-01-2023 take 1 tablet [...] on above: Take 2 tablets by mo [facility] twice daily. Take 1 tablet by krystal th twice daily. Take 1 tablet (10 mg ) by mouth two times a day. hydroxychloroquine sulfate 200 mg oral tablet (20 sources) Antimalarial, Antirheumatic Agent Start: 2015 take 1 tablet by mouth twice daily hydroxychloroquine (PLAQUENIL) 200 mg tablet Take 1 tablet by mouth twice daily. (Dr. Albright) 09/20/2015 Active Comment on above: Take 1 tablet by krystal twice daily. (Dr. Albright) 3 ml insulin glargine 100 unt/ml pen injector (17 sources) Insulin Analog Start: 2018 Insulin Glargine (Basaglar Benitaikpen U-100 Insulin) 100 UNIT/ML insulin pen Active 24 U SQ AT BEDTIME NEEDED as needed for HYPERGLYCEMIA July 20, 2018 12:00am Start: 07-20-2018 End: 05-26-2022 insulin glargine (BASAGLAR K VIVIENKPEN U-100 INSULIN) 100 unit/mL (3 mL) Indications: [...] subcutaneously daily at bedtime. 10 Each 4 01/25/2024 09/14/2024 Discontinued Start: 01-25-2024 insulin glargi ne-yfgn (SEMGLEE,INSULIN GLARG-YFGN,PEN) 100 unit/mL (3 mL) insulin pen Indications: Controlled type 2 diabetes mellitus without complication, with long-term current use of insulin (HCC) Inject 24 Units subcutaneously daily at bedtime. 10 Each 4 01/25/2024 Active Start: 07-01-2023 End: 01-24-2024 insulin glargine-yfgn (SEMGL EE,INSULIN GLARG-YFGN,PEN) 100 unit/mL (3 mL) insulin pen Indications: Controlled type 2 diabetes mellitus without complication, with long-term current use of insulin (HCC) Inject 24 Units subcutaneously daily at bedtime. 10 Each 4 07/01/2023 01/24/2024 Discontinued Start: 07-01-2023 insulin glargi ne-yfgn (SEMGLEE,INSULIN GLARG-YFGN,PEN) 100 unit/mL (3 mL) insulin pen Indications: Controlled type 2 diabetes mellitus without complication, with long-term current use of insulin (HCC) Inject 24 Units subcutaneously daily at bedtime. 10 Each 4 07/01/2023 Active Start: 05-26-2022 End: 07-01-2023 insulin glargine-yfgn (SEMGL EE,INSULIN GLARG-YFGN,PEN) 100 unit/mL (3 mL) insulin pen Indications: Controlled type 2 diabetes mellitus without complication, with long-term current use of insulin (HCC) Inject 24 Units subcutaneously daily at bedtime. 10 Each 4 05/26/2022 07/01/2023 Discontinued Start: 05-26-2022 insulin glargi ne-yfgn (SEMGLEE,INSULIN GLARG-YFGN,PEN) 100 unit/mL (3 mL) insulin pen Indications: Controlled type 2 diabetes mellitus without complication, with long-term current use of insulin ([facility]) Inject 24 Units subcutaneously daily at bedtime. 10 Each 4 05/26/2022 Active Comment on above: Inject 24 Units subc utaneously daily at bedtime. loperamide hydrochloride 2 mg oral tablet (5 sources) Opioid Agonist Start: End: take 1 tablet by mouth once as needed for diarrhea loperamide HCl (IMODIUM A-D) 2 mg tab Indications: Diarrhea, unspecified type Take 1 tablet by mouth as needed (diarrhea). 30 tablet 09/01/2024 Active losartan potassium 25 mg oral tablet (20 sources) Angiotensin 2 Receptor Britta Start: 019 End: take 1 tablet by mouth once daily losartan (COZAAR) 25 mg tablet Indications: Controlled type 2 diabetes mellitus without complication, with long-term current use of insulin ([facility]) , Gastroesophageal reflux disease without esophagitis Take 1 tablet by mouth once daily. 90 tablet 3 07/24/2024 Active Comment on above: Take 1 tablet by krystal th once daily. meclizine hydrochloride 25 mg oral tablet (20 sources) Antiemetic Start: 024 take 1 tablet by mouth every six hours as needed meclizine (ANTIVERT) 25 mg tab Take 25 mg by mouth four times a day as needed. 12/31/2023 Active Start: 08-10-2022 End: 07-20-2023 take 1 tablet [...] complication, with long-term current use of insulin ([facility]) Take 1 tablet by mouth two times a day. 180 tablet 3 07/24/2024 Active Start: 07-20-2018 Metformin 500 MG tablet Active 1 {tbl} PO TWICE A DAY July 20, 2018 12:00am Comment on above: Take 2 tablets by mo [facility] twice daily. Take 1 tablet by [facility] twice daily. MULTIVITAMIN TAB (20 sources) Start: [...] capsule (20 sources) Proton Pump Inhibitor Start: 019 End: take 1 capsule by mouth once daily omeprazole (PRILOSEC) 20 mg capsule Indications: Gastroesophageal reflux disease without esophagitis Take 1 capsule by mouth once daily. 90 capsule 3 07/24/2024 Active Comment on above: Take 1 capsule by [facility] once daily. ondansetron 4 mg disintegrating oral tablet (5 sources) Serotonin-3 Receptor Antagonist Start: 025 take 1 tablet by mouth every six hours as needed for nausea and nausea ondansetron orally disintegrating (ZOFRAN ODT) 4 mg disintegrating tablet Indications: Nausea Take 1 tablet by mouth every 6 hours as needed. 20 tablet 09/01/2024 Active polyethylene glycol 3350 [id number] mg / potassium chloride 1480 mg / sodium bicarbonate 5720 mg / sodium chloride 30868 mg powder for oral solution (1 source) Osmotic Laxative Start: 023 End: 023 take 420 g by mouth once peg-electrolyte soln (NULYTELY) 420 gram suspension Indications: Colon cancer screening Take 4,000 mL by mouth one time only for 1 dose. 1 Each 0 05/29/2022 05/29/2022 Active Comment on above: Take 4,000 mL by krystal th one time only for 1 dose. pravastatin sodium 20 mg oral tablet (20 sources) HMG-CoA Reductase Inhibitor Start: 019 End: 025 take 1 tablet by mouth once daily at bedtime pravastatin (PRAVACHOL) 20 mg tablet Indications: Mixed hyperlipidemia Take 1 tablet by mouth daily at bedtime. 90 tablet 3 07/24/2024 Active Comment on above: Take 1 tablet by krystal th daily at bedtime. Completed/Discontinued Medications Medication Drug Class(es) Dates Sig (Normalized) Sig (Original) acetaminophen 325 mg / HYDROcodone bitartrate 5 mg oral tablet (8 sources) Opioid Agonist Start: 12-04-2020 End: 12-31-2023 [...] 2020 calcium carbonate 1500 mg oral tablet (8 sources) Start: 07-20-2018 End: 12-31-2023 take 1 [...] Multivitamin (Daily Multiple Vitamin) 1 EACH tablet (8 sources) Start: 07-20-2018 End: 12-31-2023 take 1 [...] anemia, unspecified iron deficiency anemia type] Onset: Episodic Diabetes mellitus without complication (20 sources) [...] 08-04-2012 Chronic Genitourinary symptoms and ill-defined conditions (5 sources) Microscopic hematuria; Translations: [Other microscopic hematuria] Onset: 5 09-19-2024 Episodic Malaise and fatigue (2 sources) Fatigue; Translations: [Other fatigue] Onset: 5 09-19-2024 Episodic Menopausal disorders (2 sources) Atrophic vaginitis; Translations: [Postmenopausal atrophic vaginitis] Onset: 5 09-19-2024 Chronic Nausea and vomiting (2 sources) Nausea; Translations: [Nausea] Onset: 5 09-01-2024 Episodic Nutritional deficiencies (6 sources) Vitamin D deficiency; Translations: [Vitamin D deficiency, unspecified] Onset: 4 Chronic Open wounds of extremities (8 sources) Laceration of hand; Translations: [Laceration without foreign body of left hand, initial encounter] 07-21-2018 Episodic Other aftercare (1 source) Long-term current use of drug therapy; Translations: [Other superintendent terminal (current) drug therapy] 01-19-2024 Episodic Other connective tissue disease (8 sources) Peroneal tendinitis of left lower limb; Translations: [Peroneal tendinitis, left leg] 12-06-2020 Episodic Other connective tissue disease (8 sources) Disorder of foot; Translations: [Other enthesopathy of left foot and ankle] 12-06-2020 Episodic Other connective tissue disease (8 sources) Foot pain; Translations: [Pain in left [...] 09-19-2024 Episodic Residual codes; unclassified (1 source) Flushing; Translations: [Hot flashes] Onset: 5 Episodic Residual codes; unclassified (1 source) Illness, unspecified; Translations: [Illness, unspecified] Onset: 5 Episodic Rheumatoid arthritis and related disease (1 source) Inflammatory polyarthropathy; Translations: [Inflammatory polyarthropathy] Onset: 5 Chronic Spondylosis; intervertebral disc disorders; other back problems (4 sources) Neck pain; Translations: [Cervicalgia] Episodic Sprains and strains (8 sources) Rupture of peroneal tendon; Translations: [Strain of muscle(s) and tendon(s) of peroneal muscle group at lower leg level, unspecified leg, initial encounter] 12-06-2020 Episodic Unclassified (1 source) Acute cough; Translations: [Acute cough] Onset: 5 Unclassified (1 source) Subacute cough; Translations: [Subacute cough] Onset: 5 Urinary tract infections (6 sources) Acute urinary tract infection; Translations: [Urinary tract infection, site not specified] Onset: 5 08-28-2024 Episodic Past or Other Problems Problem Classification Problem Date Documented Da te Episodic/Chronic Conditions associated with dizziness or vertigo (20 sources) Dizziness; Translations: [Dizziness and giddiness] Onset: 01-19-2024 Episodic Other aftercare (1 source) termination clerk (current) use of insulin; Translations: [Controlled type 2 diabetes mellitus without complication, with long-term current use of insulin (HCC)] Onset: 03-04-2015 Episodic Other aftercare (1 source) Other nursing home (current) drug therapy; Translations: [Encounter for long-term current use of medication] Onset: 01-14-2024 Episodic Other lower respiratory disease (20 sources) Cough; Translations: [Cough] Resolved: 08-27-2008 08-27-2008 Episodic Other non-traumatic joint disorders (18 sources) Hip pain; Translations: [Pain in left [...] Test Name Value Interpretation Reference Range Facility Abdomen Limitedon 10-26-2024 Abdomen Limited [facility] Imaging Services [address] [place], [place] [address] Abdomen Limited MR#: [id number] Acct: [id number] Name: RACHEL HOLLOWAY Rep #: [id number] : 1955 F 69 From: Jeffrey Pringle MD PCP: Dr. Iglesia Messina MD Status: REG CLI Study: Abdomen Limited Date of Exam: 10/26/24 Exam# [id number] Ordering Dr: Nidia Albright MD EXAM: US Abdomen Limited, Right Upper Quadrant CLINICAL INDICATION: ELEVATED LIVER ENZYMES TECHNIQUE: Real-time ultrasound of the right upper quadrant with image documentation. COMPARISON: No relevant prior studies available. FINDINGS: LIVER: Liver measures up to 18.1 cm. Fatty infiltration of the liver. No intrahepatic bile duct dilation. GALLBLADDER: Negative Steele's sign was reported by the wall to wall carpet installer. No gallstones. COMMON BILE DUCT: Unremarkable as visualized. No stones. No dilation. Common bile duct measures 0.4 cm in diameter. PANCREAS: Unremarkable as visualized. RIGHT KIDNEY: Unremarkable. No stones. No hydronephrosis. The right kidney measures 12.1 x 4.9 x 5.5 cm. US/Abdomen Limited IMPRESSION: Fatty infiltration of the liver. Reading [facility] CC: Dr. Iglesia Messina MD; Dr. Nidia Albright MD Data Coder Operator: Signed Normal [facility] Urinalysis complete panel (U )on 10-19-2024 Bacteria LM.HPF (Urine sed) [#/Area] Negative Negative /HPF [facility] Bilirubin Ql (U) Negative Negative [facility] Clarity (Unsp spec) Clear Clear [facility] Color (U) Yellow Yellow [facility] Epithelial cells LM.HPF (Urine sed) [#/Area] None Seen /HPF [facility] Glucose Test strip (U) [Mass/Vol] Negative Negative [facility] Hemoglobin Ql (U) Negative Negative [facility] Hyaline casts (Urine sed) [#/Area] 0 /[LPF] 0 /LPF [facility] Interpretation and review of laboratory results Abnormal [facility] Ketones Ql (U) Negative Negative [facility] Leukocyte esterase Test strip Ql (U) Trace Abnormal Negative [facility] Nitrite Ql (U) Negative Negative [facility] pH (U) 5.5 [pH] NINF - 8.5 [facility] Protein (U) [Mass/Vol] Negative Negative [facility] RBC LM.HPF (Urine sed) [#/Area] 0-2 /HPF 0-2 /HPF [facility] Specific gravity (U) [Rel density] 1.014 1.005 - 1.030 [facility] Urobilinogen Ql (U) 0.2 EU/dL 0.2-1.0 EU/dL [facility] WBC LM.HPF (Urine sed) [#/Area] 0-5 /HPF 0-5 /HPF [facility] This test was developed and its performance characteristics determined by [facility]'s [facility] [place] ([facility]). It has not been cleared or approved by the FDA. -[facility] is regulated under CLIA as qualified to perform high-complexity testing. This test is used for clinical purposes. It should not be regarded as investigational or for research. [facility] Bacteria LM.HPF (Urine sed) [#/Area] Negative Normal Negative [facility] Comment on above: Order Comment: Speci men Type: URINE SPECIMENOrdering Facility: [facility] Address: [address] [place] [address] Performed By: #### 2 4356-8 ####[facility] LABCLIA [id number] [place] [address] [place] Bilirubin Ql (U) Negative Normal Negative [facility] Comment on above: Order Comment: Speci men Type: URINE SPECIMENOrdering Facility: [facility] Address: [address] [place] [address] Performed By: #### 2 4356-8 ####[facility] LABCLIA [id number] [place] [address] [place] Clarity (Unsp spec) Clear Normal Clear [facility] Comment on above: Order Comment: Speci men Type: URINE SPECIMENOrdering Facility: [facility] Address: [address] [place] [address] Performed By: #### 2 4356-8 ####[facility] LABCLIA [id number] [place] [address] [place] Color (U) Yellow Normal Yellow [facility] Comment on above: Order Comment: Speci men Type: URINE SPECIMENOrdering Facility: [facility] Address: [address] [place] [address] Performed By: #### 2 4356-8 ####[facility] LABCLIA [id number] [place] [address] [place] Epithelial cells LM.HPF (Urine sed) [#/Area] None Seen Normal [facility] Comment on above: Order Comment: Speci men Type: URINE SPECIMENOrdering Facility: [facility] Address: [address] [place] [address] Performed By: #### 2 4356-8 ####[facility] LABCLIA [id number] [place] [address] [place] Glucose Test strip (U) [Mass/Vol] Negative Normal Negative [facility] Comment on above: Order Comment: Speci men Type: URINE SPECIMENOrdering Facility: [facility] Address: [address] [place] [address] Performed By: #### 2 4356-8 ####[facility] LABCLIA [id number] [place] [address] [place] Hemoglobin Ql (U) Negative Normal Negative [facility] Comment on above: Order Comment: Speci men Type: URINE SPECIMENOrdering Facility: [facility] Address: [address] [place] [address] Performed By: #### 2 4356-8 ####[facility] LABCLIA [id number] [address], [place] [address] [place] Hyaline casts (Urine sed) [#/Area] 0 /[LPF] Normal 0 /LPF [facility] Comment on above: Order Comment: Speci men Type: URINE SPECIMENOrdering Facility: [facility] Address: [address] [place] [address] Performed By: #### 2 4356-8 ####[facility] LABCLIA [id number] [place] [address] [place] Ketones Ql (U) Negative Normal Negative [facility] Comment on above: Order Comment: Speci men Type: URINE SPECIMENOrdering Facility: [facility] Address: [address] [place] [address] Performed By: #### 2 4356-8 ####[facility] LABCLIA [id number] [place] [address] [place] Leukocyte esterase Test strip Ql (U) Trace Abnormal Negative [facility] Comment on above: Order Comment: Speci men Type: URINE SPECIMENOrdering Facility: [facility] Address: [address] [place] [address] Performed By: #### 2 4356-8 ####[facility] LABCLIA [id number] [place] [address] [place] Nitrite Ql (U) Negative Normal Negative [facility] Comment on above: Order Comment: Speci men Type: URINE SPECIMENOrdering Facility: [facility] Address: [address] [place] [address] Performed By: #### 2 4356-8 ####[facility] LABCLIA [id number] [place] [id number] [place] pH (U) 5.5 [pH] Normal <8.5 [facility] Comment on above: Order Comment: Speci men Type: URINE SPECIMENOrdering Facility: [facility] Address: [address] [place] [address] Performed By: #### 2 4356-8 ####[facility] LABIA [id number] [place] [address] [place] Protein (U) [Mass/Vol] Negative Normal Negative Cl [facility] Comment on above: Order Comment: Speci men Type: URINE SPECIMENOrdering Facility: [facility] Address: [address] [place] [address] Performed By: #### 2 4356-8 ####[facility] [id number] [place] [address] [place] RBC LM.HPF (Urine sed) [#/Area] 0-2 /HPF Normal 0-2 /HPF [facility] Comment on above: Order Comment: Speci men Type: URINE SPECIMENOrdering Facility: [facility] Address: [address] [place] [address] Performed By: #### 2 4356-8 ####[facility] [id number] [place] [address] [place] Specific gravity (U) [Rel density] 1.014 Normal 1.005-1.030 [facility] Comment on above: Order Comment: Speci men Type: URINE SPECIMENOrdering Facility: [facility] Address: [address] [place] [address] Performed By: #### 2 4356-8 ####[facility] [id number] [place] [address] [place] Specific gravity (U) [Rel density] 1.015 Normal 1.005-1.030 [facility] Comment on above: Order Comment: Speci men Type: URINE SPECIMENOrdering Facility: [facility] Address: [address] [place] [address] Performed By: #### 2 4356-8 ####[facility] LABIA [id number] [place] [address] [place] Urobilinogen Ql (U) 0.2 EU/dL Normal 0.2-1.0 EU/dL [facility] Comment on above: Order Comment: Speci men Type: URINE SPECIMENOrdering Facility: [facility] Address: [address] [place] [address] Performed By: #### 2 4356-8 ####[facility] LABIA [id number] [place] [address] [place] WBC LM.HPF (Urine sed) [#/Area] 0-5 /HPF Normal 0-5 /HPF [facility] Comment on above: Order Comment: Speci men Type: URINE SPECIMENOrdering Facility: [facility] Address: [address] [place] [address] Performed By: #### 2 4356-8 ####[facility] LABIA [id number] [place] [address] [place] Absolute lymphocyte countOrd ered By: Nidia Albright on 10-13-2024 Lymphocytes Auto (Unsp spec) [#/Vol] 1.83 10*3/uL 0.83-4.51 [facility] Absolute neutrophil countOrd ered By: Nidia Albright on 10-13-2024 Neutrophils (Bld) [#/Vol] 3.0 10*3/uL 2.0-7.7 [facility] Anion gap in Serum or Plasma Ordered By: Nidia Albright on 10-13-2024 Anion gap [Moles/Vol] 12 mmol/L 5-15 [facility] Automated lymphocyte count a s percentage of total leukocytesOrdered By: Nidia Albright on 10-13-2024 Lymphocytes/100 WBC Auto (Unsp spec) 32.9 % -41 [facility] BUN/creatinine ratioOrdered By: Nidia Albright on 10-13-2024 Urea nitrogen/Creatinine [Mass ratio] 12.6 mg/mg 10-20 [facility] Basophil percentageOrdered B y: Nidia Silvaleno on 10-13-2024 Basophils/100 WBC (Bld) 1.1 % High 0-[address] [facility] Bilirubin, totalOrdered By: Nidia Silvaleno on 10-13-2024 Bilirubin [Mass/Vol] 0.34 mg/dL 0.00-1.30 [facility] CBC W/Diff, Automatedon 09-18 Absolute Lymph 1.83 X10 3/uL Normal 0.83-4.51 [facility] Comment on above: Performed By: #### L 500.4050, L100.0100 #### [facility] [address] [place], [address] Absolute Neut 3.0 X10 3/uL Normal 2.0-7.7 [facility] Comment on above: Performed By: #### L 500.4050, L100.0100 #### [facility] [address] [place], [address] Basophils/100 WBC (Bld) 1.1 % High 0-[address] [facility] Comment on above: Performed By: #### L 500.4050, L100.0100 #### [facility] [address] [place], [address] Eosinophils/100 WBC (Bld) 3.2 % Normal 0-5 [facility] Comment on above: Performed By: #### L 500.4050, L100.0100 #### [facility] [address] [place], [address] Erythrocyte distribution width (RBC) [Ratio] 13.3 % Normal 11.6-14.6 [facility] Comment on above: Performed By: #### L 500.4050, L100.0100 #### [facility] [address] [place], [address] Hematocrit (Bld) [Volume fraction] 41.4 % Normal 37-47 [facility] Comment on above: Performed By: #### L 500.4050, L100.0100 #### [facility] [address] [place], [address] Hemoglobin (Bld) [Mass/Vol] 13.6 g/dL Normal 12.0-15.0 [facility] Comment on above: Performed By: #### L 500.4050, L100.0100 #### [facility] [address] [place], [address] IG% 0.000 Normal 0.0-0.9 [facility] Comment on above: Result Comment: IG% - Immature Granulocytes (promyelocytes, myelocytes and metamyelocytes) > 1% indicates that a LEFT SHIFT is Present. Performed By: #### L 500.4050, L100.0100 #### [facility] [address] [place], [address] Lymphocytes/100 WBC (Bld) 32.9 % Normal 19-41 [facility] Comment on above: Performed By: #### L 500.4050, L100.0100 #### [facility] [address] [place], [address] MCH (RBC) [Entitic mass] 29.8 pg Normal 27.0-32.0 [facility] Comment on above: Performed By: #### L 500.4050, L100.0100 #### [facility] [address] [place], [address] MCHC (RBC) [Mass/Vol] 32.9 g/dL Normal 32-36 [facility] Comment on above: Performed By: #### L 500.4050, L100.0100 #### [facility] [address] [place], [address] MCV (RBC) [Entitic vol] 90.8 fL Normal 81-[address] [facility] Comment on above: Performed By: #### L 500.4050, L100.0100 #### [facility] [address] [place], [address] Monocytes/100 WBC (Bld) 8.8 % Normal 0-[address] [facility] Comment on above: Performed By: #### L 500.4050, L100.0100 #### [facility] [address] [place], [address] Neutrophils/100 WBC (Bld) 54.0 % Normal 47-70 [facility] Comment on above: Performed By: #### L 500.4050, L100.0100 #### [facility] [address] [place], [address] Nucleated RBC (Bld) [#/Vol] 0 10*3/uL Normal 0-5 [facility] Comment on above: Performed By: #### L 500.4050, L100.0100 #### [facility] [address] [place], [address] Platelet mean volume (Bld) [Entitic vol] 10.5 fL Normal 6.2-12.0 [facility] Comment on above: Performed By: #### L 500.4050, L100.0100 #### [facility] [address] [place], [address] Platelets (Bld) [#/Vol] 296 10*3/uL Normal 150-450 [facility] Comment on above: Performed By: #### L 500.4050, L100.0100 #### [facility] [address] [place], [address] RBC (Bld) [#/Vol] 4.56 10*6/uL Normal 4.2-5.4 [facility] Comment on above: Performed By: #### L 500.4050, L100.0100 #### [facility] [address] [place], [address] RDW SD 45.1 fl High 35.1-43.9 [facility] Comment on above: Performed By: #### L 500.4050, L100.0100 #### [facility] [address] [place], [address] WBC (Bld) [#/Vol] 5.6 10*3/uL Normal 4.4-11.0 [facility] Comment on above: Performed By: #### L 500.4050, L100.0100 #### [facility] [address] [place], [address] Carbon dioxide, total [Moles /volume] in Central venous bloodOrdered By: Nidia Albright on 10-13-2024 CO2 [Moles/Vol] 27.3 mmol/L 21.0-32.0 [facility] Chloride assayOrdered By: Ray Albright on 10-13-2024 Chloride [Moles/Vol] 100 mmol/L 98-108 [facility] Comprehensive Metabolic Prof ilon 10-13-2024 Albumin [Mass/Vol] 4.4 g/dL Normal 3.4-4.8 [facility] Comment on above: Performed By: #### L 500.4050, L100.0100 #### [facility] [address] [place], [address] Albumin/Globulin [Mass ratio] 1.3 {ratio} Normal 0.9-2.4 [facility] Comment on above: Performed By: #### L 500.4050, L100.0100 #### [facility] [address] [place], [address] ALK PHOS 104 U/L Normal 35-104 [facility] Comment on above: Performed By: #### L 500.4050, L100.0100 #### [facility] [address] [place], [address] ALT [Catalytic activity/Vol] 72 U/L High <=34 [facility] Comment on above: Performed By: #### L 500.4050, L100.0100 #### [facility] [address] [place], [address] AST [Catalytic activity/Vol] 42 U/L High <=31 [facility] Comment on above: Performed By: #### L 500.4050, L100.0100 #### [facility] [address] [place], [address] Bilirubin [Mass/Vol] 0.34 mg/dL Normal 0.00-1.30 [facility] Comment on above: Performed By: #### L 500.4050, L100.0100 #### [facility] [address] [place], [address] BUN/CRE 12.6 RATIO Normal 10-20 [facility] Comment on above: Performed By: #### L 500.4050, L100.0100 #### [facility] [address] [place], [address] Calcium [Mass/Vol] 9.6 mg/dL Normal 7.6-11.0 [facility] Comment on above: Performed By: #### L 500.4050, L100.0100 #### [facility] [address] [place], [address] Chloride [Moles/Vol] 100 mmol/L Normal 98-108 [facility] Comment on above: Performed By: #### L 500.4050, L100.0100 #### [facility] [address] [place], [address] CO2 [Moles/Vol] 27.3 mmol/L Normal 21.0-32.0 [facility] Comment on above: Performed By: #### L 500.4050, L100.0100 #### [facility] [address] [place], [address] Creatinine [Mass/Vol] 0.75 mg/dL Normal 0.70-1.20 [facility] Comment on above: Performed By: #### L 500.4050, L100.0100 #### [facility] [address] [place], [address] GAP 12 Normal 5-15 [facility] Comment on above: Performed By: #### L 500.4050, L100.0100 #### [facility] [address] [place], [address] GFR/1.73 sq M.predicted among non-blacks MDRD (S/P/Bld) [Vol rate/Area] 85 mL/min/{1.73_m2} Normal >60 [facility] Comment on above: Result Comment: mL/m in/1.73m2 CKD-EPI Creatinine Equation (2020) Performed By: #### L 500.4050, L100.0100 #### [facility] [address] [place], [address] Globulin (S) [Mass/Vol] 3.5 g/dL Normal 2.2-4.2 [facility] Comment on above: Performed By: #### L 500.4050, L100.0100 #### [facility] [address] [place], [address] Glucose [Mass/Vol] 153 mg/dL High 70-99 [facility] Comment on above: Performed By: #### L 500.4050, L100.0100 #### [facility] [address] [place], [address] Potassium [Moles/Vol] 4.3 mmol/L Normal 3.3-5.1 [facility] Comment on above: Performed By: #### L 500.4050, L100.0100 #### [facility] [address] [place], [address] Sodium [Moles/Vol] 140 mmol/L Normal 133-145 [facility] Comment on above: Performed By: #### L 500.4050, L100.0100 #### [facility] [address] [place], [address] T PROT 7.9 g/dL Normal 5.9-8.4 [facility] Comment on above: Performed By: #### L 500.4050, L100.0100 #### [facility] [address] [place], [address] Urea nitrogen [Mass/Vol] 9 mg/dL Normal 4-19 [facility] Comment on above: Performed By: #### L 500.4050, L100.0100 #### [facility] [address] [place], [address] Eosinophil percentageOrdered By: Nidia Albright on 10-13-2024 Eosinophils/100 WBC (Bld) 3.2 % 0-5 [facility] Erythrocyte distribution wid th ratioOrdered By: [facility] Natalee on 10-13-2024 Erythrocyte distribution width (RBC) [Ratio] 13.3 % 11.6-14.6 [facility] Erythrocyte distribution wid th standard deviationOrdered By: Nidia Albright on 10-13-2024 Erythrocyte distribution width (RBC) [Ratio] 45.1 fl High 35.1-43.9 [facility] Glomerular filtration rate ( GFR) estimation/1.73 sq m using serum, plasma, or whole bOrdered By: Nidia Albright on 10-13-2024 GFR/1.73 sq M.predicted among non-blacks MDRD (S/P/Bld) [Vol rate/Area] 85 mL/min/{1.73_m2} >60 [facility] Comment on above: mL/min/1.73m2 CKD-EP I Creatinine Equation (2020) Hematocrit Auto (Bld) [Volum e fraction]Ordered By: Nidia Albright on 10-13-2024 Hematocrit (Bld) [Volume fraction] 41.4 % 37-47 [facility] [place] [facility] Hemoglobin measurementOrdere d By: Nidia Albright on 10-13-2024 Hemoglobin (Bld) [Mass/Vol] 13.6 g/dL 12.0-15.0 [facility] Immature granulocytes/100 WB C Auto (Bld)Ordered By: Nidia Albright on 10-13-2024 Immature granulocytes/100 WBC (Bld) 0.000 % 0.0-0.9 [facility] Comment on above: IG% - Immature Granu locytes (promyelocytes, myelocytes and metamyelocytes) > 1% indicates that a LEFT SHIFT is Present. Laboratory - Chemistry and C hemistry - challengeOrdered By: Nidia Albright on 10-13-2024 AST [Catalytic activity/Vol] 42 U/L High <32 [facility] MCV (mean corpuscular volume ) determinationOrdered By: Nidia Albright on 10-13-2024 MCV (RBC) [Entitic vol] 90.8 fL 81-[address] [facility] Mean corpuscular hemoglobin (MCH) determinationOrdered By: Nidia Albright on 10-13-2024 MCH (RBC) [Entitic mass] 29.8 pg 27.0-32.0 [facility] Mean corpuscular hemoglobin concentration (MCHC) determinationOrdered By: Nidia Albright on 10-13-2024 MCHC (RBC) [Mass/Vol] 32.9 g/dL 32-36 [facility] Mean platelet volume determi nationOrdered By: Nidia Albright on 10-13-2024 Platelet mean volume (Bld) [Entitic vol] 10.5 fL 6.2-12.0 [facility] Monocyte percentageOrdered B y: Nidia Albright on 10-13-2024 Monocytes/100 WBC (Bld) 8.8 % 0-[address] [facility] Neutrophil percentageOrdered By: Nidia Albright on 10-13-2024 Neutrophils/100 WBC (Bld) 54.0 % 47-70 [facility] Nucleated red blood cell per centageOrdered By: Nidia Albright on 10-13-2024 Nucleated RBC/100 WBC (Bld) [Ratio] 0 % 0-5 [facility] Platelet countOrdered By: Ray Albright on 10-13-2024 Platelets (Bld) [#/Vol] 296 10*3/uL 150-450 [facility] Potassium measurement (mass/ volume)Ordered By: Nidia Albright on 10-13-2024 Potassium (Unsp spec) [Mass/Vol] 4.3 mmol/L 3.3-5.1 [facility] RBC Auto (Bld) [#/Vol]Ordere d By: Nidia Albright on 10-13-2024 RBC (Bld) [#/Vol] 4.56 10*6/uL 4.2-5.4 [facility] Serum creatinine measurement (mass/volume)Ordered By: Nidia Albright on 10-13-2024 Creatinine [Mass/Vol] 0.75 mg/dL 0.70-1.20 [facility] Serum globulin measurementOr dered By: Nidia Albright on 10-13-2024 Globulin (S) [Mass/Vol] 3.5 g/dL 2.2-4.2 [facility] Serum glucose measurement (m ass/volume)Ordered By: Nidia Albright on 10-13-2024 Glucose [Mass/Vol] 153 mg/dL High 70-99 [facility] Serum or plasma alanine gandhi otransferase (ALT) measurementOrdered By: Nidia Albright on 10-13-2024 ALT [Catalytic activity/Vol] 72 U/L High <35 [facility] Serum or plasma albumin kashmir urement (mass/volume)Ordered By: Nidia Albright on 10-13-2024 Albumin [Mass/Vol] 4.4 g/dL 3.4-4.8 [facility] Serum or plasma albumin/glob ulin mass ratioOrdered By: Nidia Albright on 10-13-2024 Albumin/Globulin [Mass ratio] 1.3 {ratio} 0.9-2.4 [facility] Serum or plasma alkaline gil sphatase measurementOrdered By: Nidia Albright on 10-13-2024 ALP [Catalytic activity/Vol] 104 U/L 35-104 [facility] Serum or plasma calcium kashmir urement (mass/volume)Ordered By: Nidia Albright on 10-13-2024 Calcium [Mass/Vol] 9.6 mg/dL 7.6-11.0 [facility] Serum or plasma urea nitroge n measurement (mass/volume)Ordered By: Nidia Albright on 10-13-2024 Urea nitrogen [Mass/Vol] 9 mg/dL 4-19 [facility] Sodium levelOrdered By: Mario Albright on 10-13-2024 Sodium [Moles/Vol] 140 mmol/L 133-145 [facility] Total proteinOrdered By: Aparna Albright on 10-13-2024 Protein [Mass/Vol] 7.9 g/dL 5.9-8.4 [facility] White blood cell (WBC) count Ordered By: Nidia Albright on 10-13-2024 WBC (Bld) [#/Vol] 5.6 10*3/uL 4.4-11.0 [facility] Bacteria Ur Culton Bacteria identified Cx Nom (U) ORGANISM ID: 1 <10,000 CFU/ml Normal urogenital onofre Normal [facility] Comment on above: Performed By: #### 6 30-4 #### [facility] CLIA [id number] [address] [place] [address] OF [facility] CNOVon 09-19-2024 CNOV Office Visit (INTMWS ) RACHEL HOLLOWAY ([id number]) 1955 F Date Time Provider Department 09/19/24 9:20 AM EBONY HONG INTMWS During your visit today, we recorded the following information about you: Temperature Pulse Respiration Blood pressure 97.7 degrees 61/minute 16/minute 132/78 Weight 80 kg Ebony Hong APRN.CNS 09/19/2024 10:45 AM Signed Subjective Patient ID: [...] fatigue and anorexia following recent illness. - [place] slightly better while on antibiotics but symptoms [...] rhinorrhea present. Rhinorrhea is clear. Mouth/Throat: Lips: [place]. Mouth: Mucous membranes are moist. Pharynx: Oropharynx [...] further evaluation. (more content not included)... Normal [facility] UA DIP, URINE (POC)on 2024 BILIRUBIN UA (POCT) Negative Negative [facility] CLARITY UA (POCT) Clear [facility] COLOR UA (POCT) Yellow [facility] GLUCOSE UA (POCT) Negative Negative mg/dL [facility] Hemoglobin Ql (U) Small Abnormal Negative [facility] Interpretation and review of laboratory results Abnormal [facility] KETONE UA (POCT) Negative Negative mg/dL [facility] LEUKOCYTES UA (POCT) Negative Negative [facility] NITRITE UA (POCT) Negative Negative [facility] PH UA (POCT) 6 4.5 - 8.0 [facility] Protein Ql (U) Negative Negative mg/dL [facility] SPECIFIC GRAVITY UA (POCT) 1.02 1.005 - 1.030 [facility] UROBILINOGEN UA (POCT) 0.2 Verna l E.U./dL [facility] Location:[address], [place], [place], [id number] [place] [address] POINT OF CARE [facility] ECHOon 09-15-2024 Echocardiography Echocardiography Report: Transthoracic Echo [facility] Date of service: 09/15/2024 7:55:05 AM ASSISTANT Ordering physician: EBONY HONG Exam indication: Shortness [...] * * Final * * * CC [facility] [facility] : [id number] Normal [facility] Bacteria Ur Culton Bacteria identified Cx Nom (U) CULTURE, URINE: No growth (<1,000 CFU/ml) Normal [facility] Comment on above: Performed By: #### 6 30-4 #### [facility] CLIA [id number] [address] [place] [address] CNOVon 09-01-2024 CNOV Office Visit (INTMWS ) HOLLOWAYRACHEL ([id number]) 1955 F Date Time Provider Department 09/01/24 12:00 PM EBONY HONG INTMWS During your visit today, we recorded the following information about you: Temperature Pulse Respiration Blood pressure 98.6 degrees 67/minute 14/minute 152/79 Weight 81 kg Ebony Hong APRN.[employer] 09/01/2024 12:47 PM Signed Subjective Patient ID: [...] records show that she was seen at [facility] emergency department August 28, 2024 for general illness, noting weakness all over and nauseated. Also noted dizziness described as lightheadedness. History of vertigo that felt different. COVID testing completed and negative. Treated with Zofran and IV fluids. CBC and metabolic panel unremarkable. Urinalysis consistent with infection. No signs of sepsis or renal problem. She was treated with Keflex as an outpatient. Advised cshq-rxq-hfblxns remedies for her body aches. She was [...] possibly no (more content not included)... Normal [facility] UA DIP, URINE (POC)on 2024 BILIRUBIN UA (POCT) Negative Negative [facility] CLARITY UA (POCT) Cloudy [facility] COLOR UA (POCT) Dark yellow [facility] GLUCOSE UA (POCT) Negative Negative mg/dL [facility] Hemoglobin Ql (U) Trace-intact Abnormal Negative [facility] Interpretation and review of laboratory results Abnormal [facility] KETONE UA (POCT) Negative Negative mg/dL [facility] LEUKOCYTES [facility] (POCT) [facility] NITRITE UA (POCT) Negative Negative [facility] PH UA (POCT) 5.5 4.5 - 8.0 [facility] Protein Ql (U) 30 mg/dL Abnormal Negative [facility] SPECIFIC GRAVITY UA (POCT) >=1.030 1.005 - 1.030 [facility] UROBILINOGEN UA (POCT) 0.2 Verna l E.U./dL [facility] Location:[address], [id number] [place] [address] POINT OF CARE [facility] Emergency Department Summary on 08-28-2024 Emergency Department Summary [facility] Medical Records Department [address] [place] [address] Emergency Department Summary 08/28/24 MR#: [id number] Acct: [id number] Name: RACHEL HOLLOWAY Rep #: [id number] : 1955 69 From: Artis David MD PCP: Dr. Iglesia Messina MD Status:[facility] ER Location: ED HPI History of Present [...] tab PO DAILY 12/31/23 Unknown History 50 ww-Wf-eajwdf-cornelius-herb mely tablet (Calcium 600-D3 Plus (mag-zinc)) estradiol [...] sensory deficits (more content not included)... Normal [facility] M100.678on 08-28-2024 M100.678 SARS-CoV-2 (COVID 19 ) Negative INFLUENZA A Negative INFLUENZA B Negative RSV PCR Negative Normal [facility] Comment on above: Performed By: #### M 100.678, L400.0001 ####[facility] [address] [place], [address] Absolute lymphocyte countOrd ered By: Artis David on 08-27-2024 Lymphocytes Auto (Unsp spec) [#/Vol] 0.50 10*3/uL Low 0.83-4.51 [facility] Absolute neutrophil countOrd ered By: Artis David on 08-27-2024 Neutrophils (Bld) [#/Vol] 6.8 10*3/uL 2.0-7.7 [facility] Anion gap in Serum or Plasma Ordered By: Artis David on 08-27-2024 Anion gap [Moles/Vol] 15 mmol/L 5-15 [facility] Automated lymphocyte count a s percentage of total leukocytesOrdered By: Artis David on 08-27-2024 Lymphocytes/100 WBC Auto (Unsp spec) 6.7 % Low 19-41 [facility] BUN/creatinine ratioOrdered By: Artis David on 08-27-2024 Urea nitrogen/Creatinine [Mass ratio] 14.2 mg/mg - [facility] Basic Metabolic Profile (BMP )on 08-27-2024 BUN/CRE 14.2 RATIO Normal - [facility] Comment on above: Performed By: #### L 500.2500, L100.0100 #### [facility] [address] [place], [address] Calcium [Mass/Vol] 9.3 mg/dL Normal 7.6-11.0 [facility] Comment on above: Performed By: #### L 500.2500, L100.0100 #### [facility] [address] [place], [address] Chloride [Moles/Vol] 99 mmol/L Normal 98-108 [facility] Comment on above: Performed By: #### L 500.2500, L100.0100 #### [facility] [address] [place], [address] CO2 [Moles/Vol] 21.7 mmol/L Normal 21.0-32.0 [facility] Comment on above: Performed By: #### L 500.2500, L100.0100 #### [facility] [facility] [address] [place], [address] Creatinine [Mass/Vol] 0.85 mg/dL Normal 0.70-1.20 [facility] Comment on above: Performed By: #### L 500.2500, L100.0100 #### [facility] [address] [place], [address] ECRCL 64.73 ml/min Normal 50-250 [facility] Comment on above: Performed By: #### L 500.2500, L100.0100 #### [facility] [address] [place], [address] GAP 15 Normal 5-15 [facility] Comment on above: Performed By: #### L 500.2500, L100.0100 #### [facility] [address] [place], [address] GFR/1.73 sq M.predicted among non-blacks MDRD (S/P/Bld) [Vol rate/Area] 74 mL/min/{1.73_m2} Normal >60 [facility] Comment on above: Result Comment: mL/m in/1.73m2 CKD-EPI Creatinine Equation (2020) Performed By: #### L 500.2500, L100.0100 #### [facility] [address] [place], [address] Glucose [Mass/Vol] 200 mg/dL High 70-99 [facility] Comment on above: Performed By: #### L 500.2500, L100.0100 #### [facility] [address] [place], [address] Potassium [Moles/Vol] 4.0 mmol/L Normal 3.3-5.1 [facility] Comment on above: Performed By: #### L 500.2500, L100.0100 #### [facility] [address] [place], [address] Sodium [Moles/Vol] 136 mmol/L Normal 133-145 [facility] Comment on above: Performed By: #### L 500.2500, L100.0100 #### [facility] [address] [place], [address] Urea nitrogen [Mass/Vol] 12 mg/dL Normal 4-19 [facility] Comment on above: Performed By: #### L 500.2500, L100.0100 #### [facility] [address] [place], [address] Basophil percentageOrdered B y: Artis Joann on 08-27-2024 Basophils/100 WBC (Bld) 0.4 % 0-[address] [facility] Bilirubin Test strip Ql (U)O rdered By: Artis Tejedaik on 08-27-2024 Bilirubin Ql (U) Negative Negative [facility] CBC W/Diff, Automatedon 08-17 Absolute Lymph 0.50 X10 3/uL Low 0.83-4.51 [facility] Comment on above: Performed By: #### L 500.2500, L100.0100 #### [facility] [address] [place], [address] Absolute Neut 6.8 X10 3/uL Normal 2.0-7.7 [facility] Comment on above: Performed By: #### L 500.2500, L100.0100 #### [facility] [address] [place], [address] Basophils/100 WBC (Bld) 0.4 % Normal 0-[address] [facility] Comment on above: Performed By: #### L 500.2500, L100.0100 #### [facility] [address] [place], [address] Eosinophils/100 WBC (Bld) 0.7 % Normal 0-5 [facility] Comment on above: Performed By: #### L 500.2500, L100.0100 #### [facility] [address] [place], [address] Erythrocyte distribution width (RBC) [Ratio] 13.3 % Normal 11.6-14.6 [facility] Comment on above: Performed By: #### L 500.2500, L100.0100 #### [facility] [address] [place], [address] Hematocrit (Bld) [Volume fraction] 36.4 % Low 37-47 [facility] Comment on above: Performed By: #### L 500.2500, L100.0100 #### [facility] [address] [place], [address] Hemoglobin (Bld) [Mass/Vol] 12.1 g/dL Normal 12.0-15.0 [facility] Comment on above: Performed By: #### L 500.2500, L100.0100 #### [facility] [address] [place], [address] IG% 0.400 Normal 0.0-0.9 [facility] Comment on above: Result Comment: IG% - Immature Granulocytes (promyelocytes, myelocytes and metamyelocytes) > 1% indicates that a LEFT SHIFT is Present. Performed By: #### L 500.2500, L100.0100 #### [facility] [address] [facility] [place], [address] Lymphocytes/100 WBC (Bld) 6.7 % Low 19-41 [facility] Comment on above: Performed By: #### L 500.2500, L100.0100 #### [facility] [address] [place], [address] MCH (RBC) [Entitic mass] 30.3 pg Normal 27.0-32.0 [facility] Comment on above: Performed By: #### L 500.2500, L100.0100 #### [facility] [address] [place], [address] MCHC (RBC) [Mass/Vol] 33.2 g/dL Normal 32-36 [facility] Comment on above: Performed By: #### L 500.2500, L100.0100 #### [facility] [address] [place], [address] MCV (RBC) [Entitic vol] 91.2 fL Normal 81-[address] [facility] Comment on above: Performed By: #### L 500.2500, L100.0100 #### [facility] [address] [place], [address] Monocytes/100 WBC (Bld) 1.2 % Normal 0-[address] [facility] Comment on above: Performed By: #### L 500.2500, L100.0100 #### [facility] [address] [place], [address] Neutrophils/100 WBC (Bld) 90.6 % High 47-70 [facility] Comment on above: Performed By: #### L 500.2500, L100.0100 #### [facility] [address] [place], [address] Nucleated RBC (Bld) [#/Vol] 0 10*3/uL Normal 0-5 [facility] Comment on above: Performed By: #### L 500.2500, L100.0100 #### [facility] [address] [place], [address] Platelet mean volume (Bld) [Entitic vol] 10.1 fL Normal 6.2-12.0 [facility] Comment on above: Performed By: #### L 500.2500, L100.0100 #### [facility] [address] [place], [address] Platelets (Bld) [#/Vol] 250 10*3/uL Normal 150-450 [facility] Comment on above: Performed By: #### L 500.2500, L100.0100 #### [facility] [address] [place], [address] RBC (Bld) [#/Vol] 3.99 10*6/uL Low 4.2-5.4 [facility] Comment on above: Performed By: #### L 500.2500, L100.0100 #### [facility] [address] [place], [address] RDW SD 43.8 fl Normal 35.1-43.9 [facility] Comment on above: Performed By: #### L 500.2500, L100.0100 #### [facility] [address] [place], [address] WBC (Bld) [#/Vol] 7.5 10*3/uL Normal 4.4-11.0 [facility] Comment on above: Performed By: #### L 500.2500, L100.0100 #### [facility] [address] [place], [address] Carbon dioxide, total [Moles /volume] in Central venous bloodOrdered By: Artis David on 08-27-2024 CO2 [Moles/Vol] 21.7 mmol/L 21.0-32.0 [facility] Chloride assayOrdered By: Keon David on 08-27-2024 Chloride [Moles/Vol] 99 mmol/L 98-108 [facility] Eosinophil percentageOrdered By: Artis David on 08-27-2024 Eosinophils/100 WBC (Bld) 0.7 % 0-5 [facility] Erythrocyte distribution wid th ratioOrdered By: Artis David on 08-27-2024 Erythrocyte distribution width (RBC) [Ratio] 13.3 % 11.6-14.6 [facility] Erythrocyte distribution wid th standard deviationOrdered By: Artis David on 08-27-2024 Erythrocyte distribution width (RBC) [Ratio] 43.8 fl 35.1-43.9 [facility] Glomerular filtration rate ( GFR) estimation/1.73 sq m using serum, plasma, or whole bOrdered By: Artis David on 08-27-2024 GFR/1.73 sq M.predicted among non-blacks MDRD (S/P/Bld) [Vol rate/Area] 74 mL/min/{1.73_m2} >60 [facility] Comment on above: mL/min/1.73m2 CKD-EP I Creatinine Equation (2020) Hematocrit Auto (Bld) [Volum e fraction]Ordered By: Artis David on 08-27-2024 Hematocrit (Bld) [Volume fraction] 36.4 % Low 37-47 [facility] Hemoglobin measurementOrdere d By: Artis David on 08-27-2024 Hemoglobin (Bld) [Mass/Vol] 12.1 g/dL 12.0-15.0 [facility] Immature granulocytes/100 WB C Auto (Bld)Ordered By: Artis David on 08-27-2024 Immature granulocytes/100 WBC (Bld) 0.400 % 0.0-0.9 [facility] Comment on above: IG% - Immature Granu locytes (promyelocytes, myelocytes and metamyelocytes) > 1% indicates that a LEFT SHIFT is Present. Influenza virus A and B and SARS-CoV-2 (COVID-19) and Respiratory syncytial virus RNAOrdered By: Artis David on 08-27-2024 SARS-CoV-2 (COVID-19) RNA ELIZABETH+probe Ql (Unsp spec) [facility] Ketones Test strip Ql (U)Ord ered By: Artis David on 08-27-2024 Ketones Ql (U) Negative Negative [facility] MCV (mean corpuscular volume ) determinationOrdered By: Artis David on 08-27-2024 MCV (RBC) [Entitic vol] 91.2 fL 81-[address] [facility] Mean corpuscular hemoglobin (MCH) determinationOrdered By: Artis David on 08-27-2024 MCH (RBC) [Entitic mass] 30.3 pg 27.0-32.0 [facility] Mean corpuscular hemoglobin concentration (MCHC) determinationOrdered By: Artis David on 08-27-2024 MCHC (RBC) [Mass/Vol] 33.2 g/dL 32-36 [facility] Mean platelet volume determi nationOrdered By: Artis David on 08-27-2024 Platelet mean volume (Bld) [Entitic vol] 10.1 fL 6.2-12.0 [facility] Microscopic analysis of urin e for red blood cells (RBC)Ordered By: Artis David on 08-27-2024 Microscopic analysis of urine for red blood cells (RBC) 0-5 SEEN /hpf 0-5 [facility] Monocyte percentageOrdered B y: Artis David on 08-27-2024 Monocytes/100 WBC (Bld) 1.2 % 0-[address] [facility] Mucus LM Ql (Urine sed)Order ed By: Artis David on 08-27-2024 Mucus Ql (Urine sed) 0 SEEN /hpf [facility] Neutrophil percentageOrdered By: Artis David on 08-27-2024 Neutrophils/100 WBC (Bld) 90.6 % High 47-70 [facility] Nitrite Test strip Ql (U)Ord ered By: Artis David on 08-27-2024 Nitrite Ql (U) Negative Negative [facility] Nucleated red blood cell per centageOrdered By: rAtis David on 08-27-2024 Nucleated RBC/100 WBC (Bld) [Ratio] 0 % 0-5 [facility] Platelet countOrdered By: Keon David on 08-27-2024 Platelets (Bld) [#/Vol] 250 10*3/uL 150-450 [facility] Potassium measurement (mass/ volume)Ordered By: Artis David on 08-27-2024 Potassium (Unsp spec) [Mass/Vol] 4.0 mmol/L 3.3-5.1 [facility] Protein Test strip Ql (U)Ord ered By: Artis David on 08-27-2024 Protein Ql (U) 30 mg/dl High Negative [facility] RBC Auto (Bld) [#/Vol]Ordere d By: Artis David on 08-27-2024 RBC (Bld) [#/Vol] 3.99 10*6/uL Low 4.2-5.4 [facility] Serum creatinine measurement (mass/volume)Ordered By: Artis David on 08-27-2024 Creatinine [Mass/Vol] 0.85 mg/dL 0.70-1.20 [facility] Serum glucose measurement (m ass/volume)Ordered By: Artis David on 08-27-2024 Glucose [Mass/Vol] 200 mg/dL High 70-99 [facility] Serum or plasma calcium kashmir urement (mass/volume)Ordered By: Artis David on 08-27-2024 Calcium [Mass/Vol] 9.3 mg/dL 7.6-11.0 [facility] Serum or plasma urea nitroge n measurement (mass/volume)Ordered By: Artis David on 08-27-2024 Urea nitrogen [Mass/Vol] 12 mg/dL 4-19 [facility] Sodium levelOrdered By: Marshall David on 08-27-2024 Sodium [Moles/Vol] 136 mmol/L 133-145 [facility] Squamous epithelial cells de tection in urine sediment by light microscopyOrdered By: Artis David on 08-27-2024 Epithelial cells.squamous LM Ql (Urine sed) 0-5 SEEN /hpf 5-10 [facility] Urinalysis, Completeon 08-27 BACTERIA 3+ /hpf Normal None Seen [facility] Comment on above: Order Comment: CLEAN CATCH Performed By: #### M 100.678, L400.0001 ####[facility] [address] [place], [address] EPI,RENAL 0-5 SEEN Normal 0-5 [facility] Comment on above: Order Comment: CLEAN CATCH Performed By: #### M 100.678, L400.0001 ####[facility] [address] [place], [address] EPI,SQUAMOUS 0-5 SEEN Normal 5-10 [facility] Comment on above: Order Comment: CLEAN CATCH Performed By: #### M 100.678, L400.0001 ####[facility] [address] [place], [address] RBC 0-5 SEEN Normal 0-5 [facility] Comment on above: Order Comment: CLEAN CATCH Performed By: #### M 100.678, L400.0001 ####[facility] [address] [place], [place], [address] WBC 5-10 SEEN Normal 0-5 [facility] Comment on above: Order Comment: CLEAN CATCH Performed By: #### M 100.678, L400.0001 ####[facility] [address] [place], [place], [address] Mucus Ql (Urine sed) 0 SEEN Normal [facility] Comment on above: Order Comment: CLEAN CATCH Performed By: #### M 100.678, L400.0001 ####[facility] [address] [place], [place], [address] Urine clarityOrdered By: Ryan David on 08-27-2024 Clarity (U) Clear Clear [facility] Urine color determinationOrd ered By: Artis David on 08-27-2024 Color (U) Yellow Yellow [facility] Urine glucose detectionOrder ed By: Artis David on 08-27-2024 Glucose Ql (U) Normal mg/dl Normal [facility] Urine leukocyte esterase det ection by dipstickOrdered By: Artis David on 08-27-2024 Leukocyte esterase Test strip Ql (U) 100 /ul High Negative [facility] Urine pHOrdered By: Artis christopher on 08-27-2024 pH (U) 6.0 [pH] 5.0 - 8.0 [facility] Urine sediment bacteria coun t by microscopy (number/high power field)Ordered By: Artis David on 08-27-2024 Bacteria LM.HPF (Urine sed) [#/Area] 3 /[HPF] None Seen [facility] Urine sediment renal epithel ial cell count by microscopy (number/high power field)Ordered By: Artis David on 08-27-2024 Epithelial cells.renal LM.HPF (Urine sed) [#/Area] 0 /[HPF] 0-5 [facility] Urine specific gravity measu rementOrdered By: Artis David on 08-27-2024 Specific gravity (U) [Rel density] 1.020 1.002-1.030 [facility] Urine urobilinogen measureme ntOrdered By: Artis David on 08-27-2024 Urobilinogen Ql (U) Normal mg/dl Normal [facility] White blood cell (WBC) count Ordered By: Artis David on 08-27-2024 WBC (Bld) [#/Vol] 7.5 10*3/uL 4.4-11.0 [facility] White blood cell countOrdere d By: Artis David on 08-27-2024 White blood cell count 5-10 SEEN /hpf 0-5 [facility] CNOVon 07-24-2024 CNOV Office Visit (INTMWS ) RACHEL HOLLOWAY ([id number]) 1955 F Date Time Provider Department 07/24/24 9:00 AM IGLESIA MESSINA INTMWS During your visit today, we recorded the following information about you: Pulse Respiration Blood pressure Weight 60/minute 12/minute 120/76 82.1 kg Iglesia Messina MD 07/24/2024 9:51 AM Signed This note was created using UCampusriter. Subjective Rachel Holloway is a 69 year [...] 205.5 mcg (0.15 %) spry Use 1 [place] in each nostril once daily. Lancets lancets [...] 1 tablet by mouth once daily. Ca/D3/mag ox/zinc/ad copy writer/shanelle/bor (CALCIUM 600-D3 PLUS ORAL) Take 1 capsule [...] (182 lb (more content not included)... Normal [facility] 25(OH)D3 [facility] 25-hydroxyvitamin D3 [Mass/Vol] 30.6 ng/mL Low 31.0-80.0 [facility] Comment on above: Order Comment: Speci men Type: BLOOD SPECIMENOrdering Facility: [facility] Address: [address] [place] [address] Result Comment: Clas sification of 25 [place] Vitamin D status: Deficiency/Insufficiency: < or = 30 ng/ml. Sufficiency/Optimal Levels: 31-80 ng/mL Toxicity: > 100 ng/mL. Test performed by chemiluminescent immunoassay. Performed By: #### 1 989-3 ####[facility] LABCLIA [id number] [place] [address] [place] CBC panel Auto (Bld)on 07-14 Erythrocyte distribution width (RBC) [Ratio] 13.0 % Normal 11.5-15.0 [facility] Comment on above: Order Comment: Speci men Type: BLOOD SPECIMENOrdering Facility: [facility] Address: [address] [place] [address] Performed By: #### 5 8410-2 ####[facility] [id number] [place] [address] [place] Hematocrit (Bld) [Volume fraction] 39.2 % Normal 36.0-46.0 [facility] Comment on above: Order Comment: Speci men Type: BLOOD SPECIMENOrdering Facility: [facility] Address: [address] [place] [address] Performed By: #### 5 8410-2 ####[facility] [id number] [place] [address] [place] Hemoglobin (Bld) [Mass/Vol] 13.1 g/dL Normal 11.5-15.5 [facility] Comment on above: Order Comment: Speci men Type: BLOOD SPECIMENOrdering Facility: [facility] Address: [address] [place], [place] [id number] Performed By: #### 5 8410-2 ####[facility] [id number] [place] [address] [place] MCH (RBC) [Entitic mass] 29.9 pg Normal 26.0-34.0 [facility] Comment on above: Order Comment: Speci men Type: BLOOD SPECIMENOrdering Facility: [facility] Address: [address] [place] [address] Performed By: #### 5 8410-2 ####[facility] MARIA ELENAMARY [id number] [place] [address] [place] MCHC (RBC) [Mass/Vol] 33.4 g/dL Normal 30.5-36.[address] [facility] Comment on above: Order Comment: Speci men Type: BLOOD SPECIMENOrdering Facility: [facility] Address: [address] [place] [address] Performed By: #### 5 8410-2 ####[facility] MARIA ELENAROYNCPERRY [id number] [place] [address] [place] MCV (RBC) [Entitic vol] 89.5 fL Normal 80.0-100.0 [facility] Comment on above: Order Comment: Speci men Type: BLOOD SPECIMENOrdering Facility: [facility] Address: [address] [place] [address] Performed By: #### 5 8410-2 ####[facility] [id number] [place] [address] [place] Nucleated RBC (Bld) [#/Vol] 10*3/uL Normal <0.01 [facility] Comment on above: Order Comment: Speci men Type: BLOOD SPECIMENOrdering Facility: [facility] Address: [address] [place] [address] Performed By: #### 5 8410-2 ####[facility] [id number] [place] [address] [place] Platelet mean volume (Bld) [Entitic vol] 9.8 fL Normal 9.0-12.7 [facility] Comment on above: Order Comment: Speci men Type: BLOOD SPECIMENOrdering Facility: [facility] Address: [address] [place] [address] Performed By: #### 5 8410-2 ####[facility] CENTERWNCLIA [id number] [place] [address] [place] Platelets (Bld) [#/Vol] 277 10*3/uL Normal 150-400 [facility] Comment on above: Order Comment: Speci men Type: BLOOD SPECIMENOrdering Facility: [facility] Address: [address] [place], [place] [id number] Performed By: #### 5 8410-2 ####[facility]ITAL[facility]CL[facility] [id number] [place] [address] [place] RBC (Bld) [#/Vol] 4.38 10*6/uL Normal 3.90-5.20 [facility] Comment on above: Order Comment: Speci men Type: BLOOD SPECIMENOrdering Facility: [facility] Address: [address] [place], [place] [address] Performed By: #### 5 8410-2 ####[facility] [id number] [place] [address] [place] WBC (Bld) [#/Vol] 6.26 10*3/uL Normal 3.70-11.00 [facility] Comment on above: Order Comment: Speci men Type: BLOOD SPECIMENOrdering Facility: [facility] Address: [address] [place], [place] [address] Performed By: #### 5 8410-2 ####[facility]ITAL[facility] [id number] [place] [address] [place] Comprehensive metabolic 2000 panelon 07-14-2024 Albumin [Mass/Vol] 4.4 g/dL Normal 3.9-4.9 [facility] Comment on above: Order Comment: Speci men Type: BLOOD SPECIMENOrdering Facility: [facility] Address: [address] [place] [address] Performed By: #### 6 30-4 #### [facility] CLIA [id number] [address] [place] [address] [place] ALP [Catalytic activity/Vol] 85 U/L Normal 34-123 [facility] Comment on above: Order Comment: Speci men Type: BLOOD SPECIMENOrdering Facility: [facility] Address: [address] [place] [address] Performed By: #### 6 30-4 #### [facility] CLIA [id number] [address] [place] [address] [place] ALT [Catalytic activity/Vol] 18 U/L Normal 7-38 [facility] Comment on above: Order Comment: Speci men Type: BLOOD SPECIMENOrdering Facility: [facility] Address: [address] [place] [address] Performed By: #### 6 30-4 #### [facility] CLIA [id number] [address] [place] [address] [place] Anion gap [Moles/Vol] 12 mmol/L Normal 8-[address] [facility] Comment on above: Order Comment: Speci men Type: BLOOD SPECIMENOrdering Facility: [facility] Address: [address] [place] [address] Performed By: #### 6 30-4 #### [facility] CLIA [id number] [address] [place] [address] [place] AST [Catalytic activity/Vol] 23 U/L Normal 13-35 [facility] Comment on above: Order Comment: Speci men Type: BLOOD SPECIMENOrdering Facility: [facility] Address: [address] [place] [address] Performed By: #### 6 30-4 #### [facility] CLIA [id number] [address] [place] [address] [place] Bilirubin [Mass/Vol] 0.3 mg/dL Normal 0.2-1.3 [facility] Comment on above: Order Comment: Speci men Type: BLOOD SPECIMENOrdering Facility: [facility] Address: [address] [place], [place] [address] Performed By: #### 6 30-4 #### [facility] CLIA [id number] [address] [place] [address] [place] Calcium [Mass/Vol] 9.6 mg/dL Normal 8.5-10.2 [facility] [facility] Comment on above: Order Comment: Speci men Type: BLOOD SPECIMENOrdering Facility: [facility] Address: [address] [place] [address] Performed By: #### 6 30-4 #### [facility] CLIA [id number] [address] [place] [address] [place] Chloride [Moles/Vol] 100 mmol/L Normal 98-107 [facility] Comment on above: Order Comment: Speci men Type: BLOOD SPECIMENOrdering Facility: [facility] Address: [address] [place] [address] Performed By: #### 6 30-4 #### [facility] CLIA [id number] [address] [place] [address] [place] CO2 [Moles/Vol] 29 mmol/L Normal 22-30 [facility] Comment on above: Order Comment: Speci men Type: BLOOD SPECIMENOrdering Facility: [facility] Address: [address] [place] [address] Performed By: #### 6 30-4 #### [facility] CLIA [id number] [address] [place], [place] [id number] [place] Creatinine [Mass/Vol] 0.65 mg/dL Normal 0.58-0.[address] [facility] Comment on above: Order Comment: Speci men Type: BLOOD SPECIMENOrdering Facility: [facility] Address: [address] [place], [place] [id number] Performed By: #### 6 30-4 #### [facility] CLIA [id number] [address] [place] [address] [place] Creatinine and Glomerular filtration rate.predicted panel (S/P/Bld) 95 mL/min/1.73m??? Normal >=60 [facility] Comment on above: Order Comment: Audreysherrie ordoñez Type: BLOOD SPECIMENOrdering Facility: [facility] Address: [address] [place] [address] Result Comment: Pam mated Glomerular Filtration Rate [...] GFR. Performed By: #### 6 30-4 #### [facility] CLIA [id number] [address] [place] [address] [place] Glucose [Mass/Vol] 115 mg/dL High 74-99 [facility] Comment on above: Order Comment: Juan ordoñez Type: BLOOD SPECIMENOrdering Facility: [facility] Address: [address] [place] [address] Result Comment: The [place] Diabetes Association (ADA) provides guidance for cutoff [...] Standards of Medical Care in Diabetes 2016, [place] Diabetes Association. Diabetes Care. 2016.39(Suppl 1). Performed By: #### 6 30-4 #### [facility] CLIA [id number] [address] [place], [place] [id number] [place] Potassium [Moles/Vol] 3.9 mmol/L Normal 3.7-5.[address] [facility] Comment on above: Order Comment: Speci men Type: BLOOD SPECIMENOrdering Facility: [facility] Address: [address] [place] [address] Performed By: #### 6 30-4 #### [facility] CLIA [id number] [address] [place] [address] [place] Protein [Mass/Vol] 7.6 g/dL Normal 6.3-8.0 [facility] Comment on above: Order Comment: Speci men Type: BLOOD SPECIMENOrdering Facility: [facility] Address: [address] [place] [address] Performed By: #### 6 30-4 #### [facility] CLIA [id number] [address] [place] [address] [place] Sodium [Moles/Vol] 141 mmol/L Normal 136-144 [facility] Comment on above: Order Comment: Speci men Type: BLOOD SPECIMENOrdering Facility: [facility] Address: [address] [place] [address] Performed By: #### 6 30-4 #### [facility] CLIA [id number] [address] [place] [address] [place] Urea nitrogen [Mass/Vol] 10 mg/dL Normal 7-21 [facility] Comment on above: Order Comment: Speci men Type: BLOOD SPECIMENOrdering Facility: [facility] Address: [address] [place] [address] Performed By: #### 6 30-4 #### [facility] CLIA [id number] [address] [place] [address] [place] HbA1c (Bld)on 07-14-2024 Average glucose Estimated from glycated hemoglobin (Bld) [Mass/Vol] 171 mg/dL Normal [facility] Comment on above: Order Comment: Speci men Type: BLOOD SPECIMENOrdering Facility: [facility] Address: [address] [place] [address] Result Comment: eAG: (Estimated average glucose) is a calculated value from HgbA1c and is real estate representative of the average blood glucose level in the last 2-3 month period. Performed By: #### 6 30-4 #### [facility] CLIA [id number] [address] [place] [address] [place] HbA1c (Bld) [Mass fraction] 7.6 % High 4.3-5.6 [facility] Comment on above: Order Comment: Speci men Type: BLOOD SPECIMENOrdering Facility: [facility] Address: [address] [place] [address] Result Comment: Amer [place] Diabetes Association guidelines indicate that patients with HgbA1c in the range 5.7-6.4% are at increased risk for development of diabetes, and intervention by lifestyle modification may be beneficial. HgbA1c greater or equal to 6.5% is considered diagnostic of diabetes. Performed By: #### 6 30-4 #### [facility] CLIA [id number] [address] [place] [address] [place] Lipid 1996 panelon 5 Cholesterol [Mass/Vol] 168 mg/dL Normal <200 [facility] Comment on above: Order Comment: Juan ordoñez Type: BLOOD SPECIMENOrdering Facility: [facility] Address: [address] [place] [address] Result Comment: <200 mg/dL, Desirable 200-239 mg/dL, Borderline high >239 mg/dL, High Performed By: #### 6 30-4 #### [facility] CLIA [id number] [address] [place] [address] [place] Cholesterol in HDL [Mass/Vol] 76 mg/dL Normal >39 [facility] Comment on above: Order Comment: Juan men Type: BLOOD SPECIMENOrdering Facility: [facility] Address: [address] [place] [address] Result Comment: 40-5 9 mg/dL, Acceptable >59 mg/dL, High: Negative risk factor for coronary heart disease <40 mg/dL, Low: Positive risk factor for coronary heart disease Performed By: #### 6 30-4 #### [facility] CLIA [id number] [address] [place] [address] STATES OF [facility] Cholesterol in LDL [Mass/Vol] 68 mg/dL Normal <100 [facility] Comment on above: Order Comment: Speci men Type: BLOOD SPECIMENOrdering Facility: [facility] Address: [address] [place] [address] Result Comment: <100 mg/dL, Optimal 100-129 mg/dL, Near optimal/above optimal 130-159 mg/dL, Borderline high 160-189 mg/dL, High >189 mg/dL, Very high Secondary prevention optimal LDL Cholesterol levels are recommended to be < 70 mg/dL Performed By: #### 6 30-4 #### [facility] CLIA [id number] [address] [place] [address] STATES [facility] Cholesterol in LDL/Cholesterol in HDL [Mass ratio] 0.89 {ratio} Normal <2.54 [facility] Comment on above: Order Comment: Speci men Type: BLOOD SPECIMENOrdering Facility: [facility] Address: [address] [place] [address] Result Comment: Refe rence: 1. National Cholesterol Education Program ATP III Guideline At-A-Glance Quick Desk Reference: National Heart, Lung, and Blood [place]. National Institutes of Health. 2001: NIH Publication No. 01-3305. 2. An International Atherosclerosis Society position paper: global recommendations for the management of dyslipidemia: executive summary, Atherosclerosis. 2014: 232(2):410-413. Performed By: #### 6 30-4 #### [facility] CLIA [id number] [address] [place] [address] [place] Cholesterol in VLDL [Mass/Vol] 24 mg/dL Normal <30 [facility] Comment on above: Order Comment: Speci men Type: BLOOD SPECIMENOrdering Facility: [facility] Address: [address] [place] [address] Performed By: #### 6 30-4 #### [facility] CLIA [id number] [address] [place] [address] [place] Cholesterol non HDL [Mass/Vol] 92 mg/dL Normal <130 [facility] Comment on above: Order Comment: Speci men Type: BLOOD SPECIMENOrdering Facility: [facility] Address: [address] [place] [address] Result Comment: <130 mg/dL, Optimal 130-159 mg/dL, Near optimal/above optimal 160-189 mg/dL, Borderline high 190-219 mg/dL, High >219 mg/dL, Very high Secondary prevention optimal non HDL Cholesterol levels are recommended to be <100 mg/dL Performed By: #### 6 30-4 #### [facility] CLIA [id number] [address] [place] [address] [place] Cholesterol.total/Choles terol in HDL [Mass ratio] 2.21 {ratio} Normal <5.10 [facility] Comment on above: Order Comment: Speci men Type: BLOOD SPECIMENOrdering Facility: [facility] Address: [address] [place] [address] Performed By: #### 6 30-4 #### [facility] CLIA [id number] [address] [place] [address] [place] FASTING TIME 12 hrs Normal [facility] Comment on above: Order Comment: Speci men Type: BLOOD SPECIMENOrdering Facility: [facility] Address: [address] [place] [address] Performed By: #### 6 30-4 #### [facility] CLIA [id number] [address] [place] [address] [place] Triglyceride [Mass/Vol] 119 mg/dL Normal <150 [facility] Comment on above: Order Comment: Speci men Type: BLOOD SPECIMENOrdering Facility: [facility] Address: [address] [place] [address] Result Comment: <150 mg/dL, Normal 150-199 mg/dL, Borderline high 200-499 mg/dL, High >499 mg/dL, Very high Performed By: #### 6 30-4 #### [facility] CLIA [id number] [address] [place], [place] [address] [place] Magnesium SerPl-mCncon 07-14 Magnesium [Mass/Vol] 1.9 mg/dL Normal 1.7-2.3 [facility] Comment on above: Order Comment: Speci men Type: BLOOD SPECIMENOrdering Facility: [facility] Address: [address] [place] [address] Performed By: #### 6 30-4 #### [facility] CLIA [id number] [address] [place], [place] [address] [place] CBC W/Diff, Automatedon Absolute Lymph 1.62 X10 3/uL Normal 0.83-4.51 [facility] Comment on above: Performed By: #### L 100.0100, L500.4050 #### [facility] [address] [place], [address] Absolute Neut 5.6 X10 3/uL Normal 2.0-7.7 [facility] Comment on above: Performed By: #### L 100.0100, L500.4050 #### [facility] [address] [place], [address] Basophils/100 WBC (Bld) 0.6 % Normal 0-[address] [facility] Comment on above: Performed By: #### L 100.0100, L500.4050 #### [facility] [address] [place], [address] Eosinophils/100 WBC (Bld) 1.5 % Normal 0-5 [facility] Comment on above: Performed By: #### L 100.0100, L500.4050 #### [facility] [address] [place], [address] Erythrocyte distribution width (RBC) [Ratio] 13.2 % Normal 11.6-14.6 [facility] Comment on above: Performed By: #### L 100.0100, L500.4050 #### [facility] [address] [place], [address] Hematocrit (Bld) [Volume fraction] 39.6 % Normal 37-47 [facility] Comment on above: Performed By: #### L 100.0100, L500.4050 #### [facility] [address] [place], [address] Hemoglobin (Bld) [Mass/Vol] 13.1 g/dL Normal 12.0-15.0 [facility] Comment on above: Performed By: #### L 100.0100, L500.4050 #### [facility] [address] [place], [address] IG% 0.500 Normal 0.0-0.9 [facility] Comment on above: Result Comment: IG% - Immature Granulocytes (promyelocytes, myelocytes and metamyelocytes) > 1% indicates that a LEFT SHIFT is Present. Performed By: #### L 100.0100, L500.4050 #### [facility] [address] [place], [address] Lymphocytes/100 WBC (Bld) 20.2 % Normal 19-41 [facility] Comment on above: Performed By: #### L 100.0100, L500.4050 #### [facility] [address] [place], [address] MCH (RBC) [Entitic mass] 29.5 pg Normal 27.0-32.0 [facility] Comment on above: Performed By: #### L 100.0100, L500.4050 #### [facility] [address] [place], [address] MCHC (RBC) [Mass/Vol] 33.1 g/dL Normal 32-36 [facility] Comment on above: Performed By: #### L 100.0100, L500.4050 #### [facility] [address] [place], [address] MCV (RBC) [Entitic vol] 89.2 fL Normal 81-[address] [facility] Comment on above: Performed By: #### L 100.0100, L500.4050 #### [facility] [address] [place], [address] Monocytes/100 WBC (Bld) 7.4 % Normal 0-[address] [facility] Comment on above: Performed By: #### L 100.0100, L500.4050 #### [facility] [address] [place], [address] Neutrophils/100 WBC (Bld) 69.8 % Normal 47-70 [facility] Comment on above: Performed By: #### L 100.0100, L500.4050 #### [facility] [address] [place], [address] Nucleated RBC (Bld) [#/Vol] 0 10*3/uL Normal 0-5 [facility] Comment on above: Performed By: #### L 100.0100, L500.4050 #### [facility] [address] [place], [address] Platelet mean volume (Bld) [Entitic vol] 9.9 fL Normal 6.2-12.0 [facility] Comment on above: Performed By: #### L 100.0100, L500.4050 #### [facility] [address] [place], [address] Platelets (Bld) [#/Vol] 484 10*3/uL High 150-450 [facility] Comment on above: Performed By: #### L 100.0100, L500.4050 #### [facility] [address] [place], [address] RBC (Bld) [#/Vol] 4.44 10*6/uL Normal 4.2-5.4 [facility] Comment on above: Performed By: #### L 100.0100, L500.4050 #### [facility] [address] [place], [address] RDW SD 43.6 fl Normal 35.1-43.9 [facility] Comment on above: Performed By: #### L 100.0100, L500.4050 #### [facility] [address] [place], [address] WBC (Bld) [#/Vol] 8.0 10*3/uL Normal 4.4-11.0 [facility] Comment on above: Performed By: #### L 100.0100, L500.4050 #### [facility] [address] [place], [address] CNOVon 04-26-2024 CNOV Office Visit (UCTR ) RACHEL HOLLOWAY ([id number]) 1955 F Date Time Provider Department 04/26/24 9:30 AM [facility] During your visit today, we recorded the [...] 205.5 mcg (0.15 %) spry Use 1 [place] in each nostril once daily. losartan (COZAAR) [...] daily. MULTIVITAMIN TAB Take by mouth. Ca/D3/mag ox/zinc/ad copy writer/shanelle/bor (CALCIUM 600-D3 PLUS ORAL) Take 1 capsule [...] Diagnosis:Subacute cough [R05.2] Order(s):XR CHEST 2V FRONTAL/LAT [[id number]] Order #: [id number] FUTURE benzonatate (TESSALON PERLE) 100 mg capsuleTake [...] mouth four (more content not included)... Normal [facility] Metabolic [facility] ilon 04-26-2024 Albumin [Mass/Vol] 3.7 g/dL Normal 3.2-5.0 [facility] Comment on above: Performed By: #### L 100.0100, L500.4050 #### [facility] [address] [place], [address] Albumin/Globulin [Mass ratio] 0.9 {ratio} Normal 0.9-2.4 [facility] Comment on above: Performed By: #### L 100.0100, L500.4050 #### [facility] [address] [place], [address] ALK P 105 U/L Normal 45-117 [facility] Comment on above: Performed By: #### L 100.0100, L500.4050 #### [facility] [address] [place], [address] ALT [Catalytic activity/Vol] 27 U/L Normal 13-56 [facility] Comment on above: Performed By: #### L 100.0100, L500.4050 #### [facility] [address] [place], [address] AST [Catalytic activity/Vol] 28 U/L Normal 15-37 [facility] Comment on above: Performed By: #### L 100.0100, L500.4050 #### [facility] [address] [place], [address] Bilirubin [Mass/Vol] 0.30 mg/dL Normal 0.20-1.00 [facility] Comment on above: Result Comment: For patients on eltrombopag therapy, use of Dimension [place] TBIL is not recommended. Performed By: #### L 100.0100, L500.4050 #### [facility] [address] [place], [address] BUN/CRE 9.8 RATIO Low 10-20 [facility] Comment on above: Performed By: #### L 100.0100, L500.4050 #### [facility] [address] [place], [address] CA,Total 9.1 mg/dL Normal 8.5-10.1 [facility] Comment on above: Performed By: #### L 100.0100, L500.4050 #### [facility] [address] [place], [address] Chloride [Moles/Vol] 100 mmol/L Normal 98-107 [facility] Comment on above: Performed By: #### L 100.0100, L500.4050 #### [facility] [address] [place], [address] CO2 [Moles/Vol] 29.0 mmol/L Normal 21.0-32.0 [facility] Comment on above: Performed By: #### L 100.0100, L500.4050 #### [facility] [address] [place], [address] Creatinine [Mass/Vol] 0.81 mg/dL Normal 0.55-1.02 [facility] Comment on above: Result Comment: The validity of the calculated GFR GFRAA in patients over 70 years has not been determined. Clinical correlation is essential. Performed By: #### L 100.0100, L500.4050 #### [facility] [address] [place], [address] EST GFR - AA 90 mL/min Normal >60 [facility] Comment on above: Result Comment: Afri can [place] GFR Calc Performed By: #### L 100.0100, L500.4050 #### [facility] [address] [place], [address] GAP 7 Normal 5-15 [facility] Comment on above: Performed By: #### L 100.0100, L500.4050 #### [facility] [address] [place], [address] GFR/1.73 sq M.predicted among non-blacks MDRD (S/P/Bld) [Vol rate/Area] 74 mL/min/{1.73_m2} Normal >60 [facility] Comment on above: Result Comment: Non- GFR Calc Performed By: #### L 100.0100, L500.4050 #### [facility] [address] [place], [address] Globulin (S) [Mass/Vol] 4.2 g/dL Normal 2.2-4.2 [facility] Comment on above: Performed By: #### L 100.0100, L500.4050 #### [facility] [address] [place], [address] Glucose [Mass/Vol] 229 mg/dL High 74-106 [facility] Comment on above: Result Comment: Gluc ose result greater than or equal to 200 mg/dL suggests DIABETES MELLITUS per A.D.A. criteria. Performed By: #### L 100.0100, L500.4050 #### [facility] [address] [place], [address] Potassium [Moles/Vol] 4.2 mmol/L Normal 3.5-5.1 [facility] Comment on above: Performed By: #### L 100.0100, L500.4050 #### [facility] [address] [place], [address] Sodium [Moles/Vol] 135 mmol/L Low 136-145 [facility] Comment on above: Performed By: #### L 100.0100, L500.4050 #### [facility] [address] [place], [address] T PROT 7.9 g/dL Normal 6.4-8.2 [facility] Comment on above: Performed By: #### L 100.0100, L500.4050 #### [facility] [address] [place], [address] Urea nitrogen [Mass/Vol] 8 mg/dL Normal 7-18 [facility] Comment on above: Performed By: #### L 100.0100, L500.4050 #### [facility] [address] [place], [address] XR CHEST 2V FRONTAL/LATon XR CHEST 2V [...] IMPRESSION: No acute radiographic abnormality. Hiatal hernia. Data Coder Operator: NEISHA Transcribe Date/Time: Apr 26 2024 10:06A Dictated by : ARPIT LINCOLN MD This examination was interpreted and the report reviewed and electronically signed by: ARPIT LINCOLN MD on Apr 26 2024 10:07AM EST [id number] Normal [facility] XR Chest PA and Lateralon IMPRESSION: No acute radiographic abnormality. Hiatal hernia. Data Coder Operator: NEISHA Transcribe Date/Time: Apr 26 2024 10:06A Dictated by : ARPIT LINCOLN MD This examination was interpreted and the report reviewed and electronically signed by: ARPIT LINCOLN MD on Apr 26 2024 10:07AM [facility] DIVISION OF RADIOLOGY * * *Final [...] shows degenerative changes. DIVISION OF RADIOLOGY Provider, [facility] Brynn Br[facility] - 04/26/2024 * * *Final Report* * [...] IMPRESSION: No acute radiographic abnormality. Hiatal hernia. Data Coder Operator: NEISHA Transcribe Date/Time: Apr 26 2024 10:06A Dictated by : ARPIT LINCOLN MD This examination was interpreted and the report reviewed and electronically signed by: ARPIT LINCOLN MD on Apr 26 2024 10:07AM EST [facility] Radiology Study observation (narrative) Shaun dodson [facility] XR Chest PA and LateralOrder ed By: [facility] Provider on 04-26-2024 [facility] SCREENINGon 04-03-2024 [facility] SCREENING * * *Final Report* * * DATE OF EXAM: Apr 03 2024 8:23AM [id number] - [facility] SCREENING / PROCEDURE REASON: Encounter for screening mammogram for breast cancer * * * * Physician Interpretation * * * * RESULT: [place] [address] #[id number] - [facility] SCREENING HISTORY: Patient is 68 years old [...] Alecia Alvarado M.D. Electronically signed on: 04/04/2024 Data Coder Operator: SHAHEED Velascorimj Date/Time: Apr 03 2024 7:43A Dictated by: ALECIA ALVARADO MD This examination was interpreted and the report reviewed and electronically signed by: ALECIA ALVARADO MD on Apr 04 2024 7:02AM EST [id number] Normal [facility] CNTHERAPYon 02-22-2024 CNTHERAPY OT/PT/Speech Visit (PTWS) RACHEL HOLLOWAY ([id number]) 1955 F Date Time Provider Department 02/22/24 11:30 AM EFREN MACIAS PTLURDES Date Time Provider Department Center 02/22/2024 11:30 AM [id number], BRENT PTLURDES [place] Reason for Visit: Physical Therapy [503] Primary Visit Diagnosis:Benign paroxysmal positional vertigo of right ear [H81.11] Allergies As of Date: 02/22/2024 Noted Allergy Reaction LISINOPRIL 03/09/2011 3 - Cough Date Reviewed: 01/19/2024 Reviewed by: Bibiana Liu LPN - Fully Assessed Prescriptions as of 02/22/2024 - insulin glargine-yfgn (SEMGLEE,INSULIN GLARG-YFGN,PEN) 100 unit/mL (3 mL) insulin pen Inject 24 Units subcutaneously daily at bedtime. - meclizine (ANTIVERT) 25 mg tab Take 25 mg by mouth four times a day as needed. - Azelastine (ASTEPRO ALLERGY) 205.5 mcg (0.15 %) spry Use 1 [place] in each nostril once daily. - losartan [...] capsule by mouth once daily. - Ca/D3/mag ox/zinc/ad copy writer/shanelle/bor (CALCIUM 600-D3 PLUS ORAL) Take 1 capsule [...] - MULTIVITAMIN TAB Take by mouth. Normal [facility] [id number] 02-15-2024 [id number] O ID: [id number] Author: EFREN MACIAS PT Service: ? Author Type: Physical Therapist Type: [id number] Filed: 02/15/2024 15:34 Note Text: [facility] Physical Therapy Plan of Care Certification Patient Name: Rachel Holloway : 1955 [facility] #: [id number] Date: 02/15/2024 To: Iglesia Messina MD From Therapist: Efren Macias PT RE: Patient Certification/ Recertification Your review, approval and electronic signature are required in order to comply with Payor: [employer]ANTAGE / [place] / Product Type: HMO / regulations. 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 The patient presents with impairments in [...] 4 Planned Treatment Interventions: Canalith Repositioning Maneuvers (04284), Self-long-term management (68147), Patient/Family/Caregiv er Education, Body Mechanics Training, Therapeutic exercise (59859), Neuromuscular re-education (68679), Manual therapy (10149), Therapeutic activities (51303) PLAN FOR NEXT VISIT: Assess pt symptoms [...] reviewed the treatment plan for Rachel Holloway, [facility]# [id number] for the period of 02/15/24 -- 03/14/24, established on 02/15/2024. Signature certifies the need for therapy services. Normal [facility] CNTHERAPYon 02-15-2024 CNTHERAPY OT/PT/Speech Visit (PTWS) RACHEL HOLLOWAY ([id number]) 1955 F Date Time Provider Department 02/15/24 1:15 PM EFREN MACIAS PTLURDES Date Time Provider Department Center 02/15/2024 1:15 PM [id number], BRENT PTLURDES [place] Reason for Visit: PT [...] 205.5 mcg (0.15 %) spry Use 1 [place] in each nostril once daily. - losartan [...] capsule by mouth once daily. - Ca/D3/mag ox/zinc/ad copy writer/shanelle/bor (CALCIUM 600-D3 PLUS ORAL) Take 1 capsule [...] - MULTIVITAMIN TAB Take by mouth. Normal [facility] ALBUMIN/CREATININE RATIO, UR INEon 01-19-2024 Albumin DL <= 20 mg/L (U) [Mass/Vol] 14.7 mg/L [facility] Albumin/Creatinine (U) [Mass ratio] 16 mg/g NINF - 30 mg/g [facility] Comment on above: Adult Male and Femal [...] [Mass/Vol] 92.4 mg/dL 20.0 - 300.0 mg/dL [facility] Albumin DL <= 20 mg/L (U) [Mass/Vol] 14.7 mg/L Normal [facility] Comment on above: Order Comment: Speci men Type: URINE SPECIMENOrdering Facility: [facility] Address: [address] [place] [address] Performed By: #### U ACR ####[facility] LABCLIA [id number] [place] [address] [place] Albumin/Creatinine (U) [Mass ratio] 16 mg/g Normal <30 [facility] Comment on above: Order Comment: Speci men Type: URINE SPECIMENOrdering Facility: [facility] Address: [address] [place] [address] Result Comment: Adul t Male and Female Nephrotic Criteria: <30 mg/g is considered normal to mildly increased 30-300 mg/g is considered moderately increased >300 mg/g is considered severely increased KDIGO. (2013). KDIGO 2012 Clinical Practice Guideline for the Evaluation and Management of Chronic Kidney Disease. Official Journal of the International Society of Nephrology, 3(1), 1-150. Performed By: #### U ACR ####[facility] LABIA [id number] [place] [address] [place] Creatinine (U) [Mass/Vol] 92.4 mg/dL Normal 20.0-300.0 [facility] Comment on above: Order Comment: Speci men Type: URINE SPECIMENOrdering Facility: [facility] Address: [address] [place] [address] Performed By: #### U ACR ####[facility] LABCLIA [id number] [place] [id number] [place] CNOVon 01-19-2024 CNOV Office Visit (INTMWS ) RACHEL HOLLOWAY ([id number]) 1955 F Date Time Provider Department 01/19/24 8:40 AM IGLESIA MESSINA INTMWS During your visit today, we recorded the following information about you: Temperature Pulse Respiration Blood pressure 97.1 degrees 68/minute 18/minute 122/66 Weight 81.2 kg Iglesia Messina MD 02/28/2024 11:13 PM Signed This note was created using Coup[employer]. Subjective Rachel Holloway is a 68 year [...] 205.5 mcg (0.15 %) spry Use 1 [place] in each nostril once daily. Lancets lancets [...] daily. MULTIVITAMIN TAB Take by mouth. Ca/D3/mag ox/zinc/ad copy writer/shanelle/bor (CALCIUM 600-D3 PLUS ORAL) Take 1 (more content not included)... Normal [facility] 25(OH)D3 [facility] 2023 25-hydroxyvitamin D3 [Mass/Vol] 32.8 ng/mL Normal 31.0-80.0 [facility] Comment on above: Order Comment: Speci men Type: BLOOD SPECIMENOrdering Facility: [facility] Address: [address] [place] [address] Result Comment: Clas sification of 25 [place] Vitamin D status: Deficiency/Insufficiency: < or = 30 ng/ml. Sufficiency/Optimal Levels: 31-80 ng/mL Toxicity: > 100 ng/mL. Test performed by chemiluminescent immunoassay. Performed By: #### 1 989-3 ####[facility] LABCLIA [id number] [place] [address] [place] CBC panel Auto (Bld)on 01-13 Erythrocyte distribution width (RBC) [Ratio] 13.1 % Normal 11.5-15.0 [facility] Comment on above: Order Comment: Speci men Type: BLOOD SPECIMENOrdering Facility: [facility] Address: [address] [id number] Performed By: #### 5 8410-2 ####[facility] MILLTOWNCLIA [id number] [place] [address] [place] Hematocrit (Bld) [Volume fraction] 39.8 % Normal 36.0-46.0 [facility] Comment on above: Order Comment: Speci men Type: BLOOD SPECIMENOrdering Facility: [facility] Address: [address] [place] [address] Performed By: #### 5 8410-2 ####[facility]ENTERWNCLIA [id number] [place] [address] [place] Hemoglobin (Bld) [Mass/Vol] 13.4 g/dL Normal 11.5-15.5 [facility] Comment on above: Order Comment: Speci men Type: BLOOD SPECIMENOrdering Facility: [facility] Address: [address] [place] [address] Performed By: #### 5 8410-2 ####[facility] [id number] [place] [address] [place] MCH (RBC) [Entitic mass] 30.1 pg Normal 26.0-34.0 [facility] Comment on above: Order Comment: Speci men Type: BLOOD SPECIMENOrdering Facility: [facility] Address: [address] [place] [address] Performed By: #### 5 8410-2 ####[facility] MILLWNCLIA [id number] [place] [address] [place] MCHC (RBC) [Mass/Vol] 33.7 g/dL Normal 30.5-36.[address] [facility] Comment on above: Order Comment: Speci men Type: BLOOD SPECIMENOrdering Facility: [facility] Address: [address] [place] [address] Performed By: #### 5 8410-2 ####[facility]CL[facility] [id number] [place] [address] [place] MCV (RBC) [Entitic vol] 89.4 fL Normal 80.0-100.0 [facility] Comment on above: Order Comment: Speci men Type: BLOOD SPECIMENOrdering Facility: [facility] Address: [address] [place] [address] Performed By: #### 5 8410-2 ####[facility] [id number] [place] [address] [place] Nucleated RBC (Bld) [#/Vol] 10*3/uL Normal <0.01 [facility] Comment on above: Order Comment: Speci men Type: BLOOD SPECIMENOrdering Facility: [facility] Address: [address] [place] [address] Performed By: #### 5 8410-2 ####[facility] [id number] [place] [address] [place] Platelet mean volume (Bld) [Entitic vol] 9.7 fL Normal 9.0-12.7 [facility] Comment on above: Order Comment: Speci men Type: BLOOD SPECIMENOrdering Facility: [facility] Address: [address] [place] [address] Performed By: #### 5 8410-2 ####[facility] [id number] [place] [address] [place] Platelets (Bld) [#/Vol] 288 10*3/uL Normal 150-400 [facility] Comment on above: Order Comment: Speci men Type: BLOOD SPECIMENOrdering Facility: [facility] Address: [address] [place] [address] Performed By: #### 5 8410-2 ####[facility] [id number] [place] [address] [place] RBC (Bld) [#/Vol] 4.45 10*6/uL Normal 3.90-5.20 [facility] Comment on above: Order Comment: Speci men Type: BLOOD SPECIMENOrdering Facility: [facility] Address: [address] [place] [address] Performed By: #### 5 8410-2 ####[facility]ITALNCA [id number] [place] [address] [place] WBC (Bld) [#/Vol] 7.35 10*3/uL Normal 3.70-11.00 [facility] Comment on above: Order Comment: Speci men Type: BLOOD SPECIMENOrdering Facility: [facility] Address: [address] [place] [address] Performed By: #### 5 8410-2 ####[facility]ITAL[facility] [id number] [place] [address] [place] Comprehensive metabolic 2000 panelon 01-14-2024 Albumin [Mass/Vol] 4.3 g/dL Normal 3.9-4.9 [facility] Comment on above: Order Comment: Speci men Type: BLOOD SPECIMENOrdering Facility: [facility] Address: [address] [place] [address] Performed By: #### 6 30-4 #### [facility] LAB CLIA [id number] [address] [place] [address] [place] ALP [Catalytic activity/Vol] 94 U/L Normal 34-123 [facility] Comment on above: Order Comment: Speci men Type: BLOOD SPECIMENOrdering Facility: [facility] Address: [address] [place] [address] Performed By: #### 6 30-4 #### [facility] CLIA [id number] [address] [place] [address] [place] ALT [Catalytic activity/Vol] 23 U/L Normal 7-38 [facility] Comment on above: Order Comment: Speci men Type: BLOOD SPECIMENOrdering Facility: [facility] Address: [address] [place] [address] Performed By: #### 6 30-4 #### [facility] CLIA [id number] [address] [place] [address] [place] Anion gap [Moles/Vol] 10 mmol/L Normal 8-[address] [facility] Comment on above: Order Comment: Speci men Type: BLOOD SPECIMENOrdering Facility: [facility] Address: [address] [place] [address] Performed By: #### 6 30-4 #### [facility] CLIA [id number] [address] [place] [address] [place] AST [Catalytic activity/Vol] 23 U/L Normal 13-35 [facility] Comment on above: Order Comment: Speci men Type: BLOOD SPECIMENOrdering Facility: [facility] Address: [address] [place] [address] Performed By: #### 6 30-4 #### [facility] CLIA [id number] [address] [place] [address] [place] Bilirubin [Mass/Vol] 0.3 mg/dL Normal 0.2-1.3 [facility] Comment on above: Order Comment: Speci men Type: BLOOD SPECIMENOrdering Facility: [facility] Address: [address] [place] [address] Performed By: #### 6 30-4 #### [facility] CLIA [id number] [address] [place] [address] [place] Calcium [Mass/Vol] 9.5 mg/dL Normal 8.5-10.2 [facility] Comment on above: Order Comment: Speci men Type: BLOOD SPECIMENOrdering Facility: [facility] Address: [address] [place] [address] Performed By: #### 6 30-4 #### [facility] CLIA [id number] [address] [place] [address] [place] Chloride [Moles/Vol] 101 mmol/L Normal 98-107 [facility] Comment on above: Order Comment: Speci men Type: BLOOD SPECIMENOrdering Facility: [facility] Address: [address] [place] [address] Performed By: #### 6 30-4 #### [facility] CLIA [id number] [address] [place] [address] [place] CO2 [Moles/Vol] 28 mmol/L Normal 22-30 [facility] Comment on above: Order Comment: Speci men Type: BLOOD SPECIMENOrdering Facility: [facility] Address: [address] [place] [address] Performed By: #### 6 30-4 #### [facility] CLIA [id number] [address] [place] [address] [place] Creatinine [Mass/Vol] 0.72 mg/dL Normal 0.58-0.[address] [facility] Comment on above: Order Comment: Speci men Type: BLOOD SPECIMENOrdering Facility: [facility] Address: [address] [place] [address] Performed By: #### 6 30-4 #### [facility] CLIA [id number] [address] [place] [address] [place] Creatinine and Glomerular filtration rate.predicted panel (S/P/Bld) 91 mL/min/1.73m??? Normal >=60 [facility] Comment on above: Order Comment: Speci men Type: BLOOD SPECIMENOrdering Facility: [facility] Address: [address] [place] [address] Result Comment: Pam mated Glomerular Filtration Rate [...] GFR. Performed By: #### 6 30-4 #### [facility] CLIA [id number] [address] [place] [address] [place] Glucose [Mass/Vol] 104 mg/dL High 74-99 [facility] Comment on above: Order Comment: Speci men Type: BLOOD SPECIMENOrdering Facility: [facility] Address: [address] [place] [address] Result Comment: The [place] Diabetes Association (ADA) provides guidance for cutoff [...] Standards of Medical Care in Diabetes 2016, [place] Diabetes Association. Diabetes Care. 2016.39(Suppl 1). Performed By: #### 6 30-4 #### [facility] CLIA [id number] [address] [place] [address] [place] Potassium [Moles/Vol] 4.1 mmol/L Normal 3.7-5.[address] [facility] Comment on above: Order Comment: Speci men Type: BLOOD SPECIMENOrdering Facility: [facility] Address: [address] [place] [address] Performed By: #### 6 30-4 #### [facility] CLIA [id number] [address] [place] [address] [place] Protein [Mass/Vol] 7.3 g/dL Normal 6.3-8.0 [facility] Comment on above: Order Comment: Speci men Type: BLOOD SPECIMENOrdering Facility: [facility] Address: [address] [place] [address] Performed By: #### 6 30-4 #### [facility] CLIA [id number] [address] [place] [address] [place] Sodium [Moles/Vol] 139 mmol/L Normal 136-144 [facility] Comment on above: Order Comment: Speci men Type: BLOOD SPECIMENOrdering Facility: [facility] Address: [address] [place] [address] Performed By: #### 6 30-4 #### [facility] CLIA [id number] [address] [place] [address] [place] Urea nitrogen [Mass/Vol] 11 mg/dL Normal 7-21 [facility] Comment on above: Order Comment: Speci men Type: BLOOD SPECIMENOrdering Facility: [facility] Address: [address] [place] [address] Performed By: #### 6 30-4 #### [facility] CLIA [id number] [address] [place] [address] [place] HbA1c (Bld)on 01-14-2024 Average glucose Estimated from glycated hemoglobin (Bld) [Mass/Vol] 166 mg/dL Normal [facility] Comment on above: Order Comment: Speci men Type: BLOOD SPECIMENOrdering Facility: [facility] Address: [address] [place] [address] Result Comment: eAG: (Estimated average glucose) is a calculated value from HgbA1c and is real estate representative of the average blood glucose level in the last 2-3 month period. Performed By: #### 5 5454-3 ####[facility] LABCLIA [id number] [place] [address] [place] HbA1c (Bld) [Mass fraction] 7.4 % High 4.3-5.6 [facility] Comment on above: Order Comment: Speci men Type: BLOOD SPECIMENOrdering Facility: [facility] Address: [address] [place] [address] Result Comment: Amer [place] Diabetes Association guidelines indicate that patients with HgbA1c in the range 5.7-6.4% are at increased risk for development of diabetes, and intervention by lifestyle modification may be beneficial. HgbA1c greater or equal to 6.5% is considered diagnostic of diabetes. Performed By: #### 5 5454-3 ####[facility] LABCLIA [id number] [facility] [place] [address] [place] Lipid 1996 panelon 4 Cholesterol [Mass/Vol] 180 mg/dL Normal <200 [facility] Comment on above: Order Comment: Juan men Type: BLOOD SPECIMENOrdering Facility: [facility] Address: [address] [place] [address] Result Comment: <200 mg/dL, Desirable 200-239 mg/dL, Borderline high >239 mg/dL, High Performed By: #### 6 30-4 #### [facility] CLIA [id number] [address] [place] [address] STATES OF [facility] Cholesterol in HDL [Mass/Vol] 75 mg/dL Normal >39 [facility] Comment on above: Order Comment: Juan ordoñez Type: BLOOD SPECIMENOrdering Facility: [facility] Address: [address] [place] [address] Result Comment: 40-5 9 mg/dL, Acceptable >59 mg/dL, High: Negative risk factor for coronary heart disease <40 mg/dL, Low: Positive risk factor for coronary heart disease Performed By: #### 6 30-4 #### [facility] CLIA [id number] [address] [place] [address] OF [facility] Cholesterol in LDL [Mass/Vol] 79 mg/dL Normal <100 [facility] Comment on above: Order Comment: Juan ordoñez Type: BLOOD SPECIMENOrdering Facility: [facility] Address: [address] [place] [address] Result Comment: <100 mg/dL, Optimal 100-129 mg/dL, Near optimal/above optimal 130-159 mg/dL, Borderline high 160-189 mg/dL, High >189 mg/dL, Very high Secondary prevention optimal LDL Cholesterol levels are recommended to be < 70 mg/dL Performed By: #### 6 30-4 #### [facility] CLIA [id number] [address] [place] [address] [place] Cholesterol in LDL/Cholesterol in HDL [Mass ratio] 1.05 {ratio} Normal <2.54 [facility] Comment on above: Order Comment: Audreyi smita Type: BLOOD SPECIMENOrdering Facility: [facility] Address: [address] [place] [address] Result Comment: Refe rence: 1. National Cholesterol Education Program ATP III Guideline At-A-Glance Quick Desk Reference: National Heart, Lung, and Blood [place]. National Institutes of Health. 2001: NIH Publication No. 01-3305. 2. An International Atherosclerosis Society position paper: global recommendations for the management of dyslipidemia: executive summary, Atherosclerosis. 2014: 232(2):410-413. Performed By: #### 6 30-4 #### [facility] CLIA [id number] [address] [place] [address] [place] Cholesterol in VLDL [Mass/Vol] 26 mg/dL Normal <30 [facility] Comment on above: Order Comment: Juan smita Type: BLOOD SPECIMENOrdering Facility: [facility] Address: [address] [place] [address] Performed By: #### 6 30-4 #### [facility] [place] [id number] [address] [place] [address] [place] Cholesterol non HDL [Mass/Vol] 105 mg/dL Normal <130 [facility] Comment on above: Order Comment: Audreysherrie ordoñez Type: BLOOD SPECIMENOrdering Facility: [facility] Address: [address] [place] [address] Result Comment: <130 mg/dL, Optimal 130-159 mg/dL, Near optimal/above optimal 160-189 mg/dL, Borderline high 190-219 mg/dL, High >219 mg/dL, Very high Secondary prevention optimal non HDL Cholesterol levels are recommended to be <100 mg/dL Performed By: #### 6 30-4 #### [facility] CLIA [id number] [address] [place] [address] [place] Cholesterol.total/Choles terol in HDL [Mass ratio] 2.40 {ratio} Normal <5.10 [facility] Comment on above: Order Comment: Speci men Type: BLOOD SPECIMENOrdering Facility: [facility] Address: [address] [place] [address] Performed By: #### 6 30-4 #### [facility] CLIA [id number] [address] [place] [address] [place] FASTING TIME 13 hrs Normal [facility] Comment on above: Order Comment: Speci men Type: BLOOD SPECIMENOrdering Facility: [facility] Address: [address] [place] [address] Performed By: #### 6 30-4 #### [facility] CLIA [id number] [address] [place] [address] [place] Triglyceride [Mass/Vol] 129 mg/dL Normal <150 [facility] Comment on above: Order Comment: Speci men Type: BLOOD SPECIMENOrdering Facility: [facility] Address: [address] [place] [address] Result Comment: <150 mg/dL, Normal 150-199 mg/dL, Borderline high 200-499 mg/dL, High >499 mg/dL, Very high Performed By: #### 6 30-4 #### [facility] CLIA [id number] [address] [place] [address] [place] Magnesium SerPl-mCncon 01-13 Magnesium [Mass/Vol] 1.9 mg/dL Normal 1.7-2.3 [facility] Comment on above: Order Comment: Speci men Type: BLOOD SPECIMENOrdering Facility: [facility] Address: [address] [place] [address] Performed By: #### 2 [id number], [id number] ####[facility] BETY CAMPBELLLIAdryan [id number] [place] [address] [place] Bedside Glucoseon 12-31-2023 FINGERSTICK GLU 183 mg/dL High 74-106 [facility] Comment on above: Result Comment: AUGUST CHRISTINE OF PATIENT CARE PER NURSING PROTOCOL Performed By: #### L [id number] #### [facility] Laboratory [address] [place], [address] Emergency Department Summary on 12-31-2023 Emergency Department Summary [facility] Medical Records Department [address] [place] [address] Emergency Department Summary 12/31/23 MR#: [id number] Acct: [id number] Name: RACHEL HOLLOWAY Rep #: [id number] : 1955 68 From: Jackie Pereira DO [...] 1 tab PO DAILY 12/31/23 Unknown History np-Tb-maypqe-manganese -boron tablet (Calcium 600-D3 Plus (mag-zinc)) aspirin [...] Physical Exam Const Vital Signs: 12/31/23 00:05 09/13/24 00:18 12/31/23 02:04 Temperature 96.7 F L [...] ED: [facility] (more content not included)... Normal [facility] Absolute lymphocyte countOrd ered By: Nidia Albright on 04-20-2023 Lymphocytes Auto (Unsp spec) [#/Vol] 1.89 10*3/uL 0.83-4.51 [facility] Basophil percentageOrdered B y: Nidia Albright on 04-20-2023 Basophils/100 WBC (Bld) 1.0 % 0-1 [facility] Bilirubin [Mass/Vol] 0.30 mg/dL 0.20-1.00 [facility] Comment on above: For patients on eltr ombopag therapy, use of Dimension [place] TBIL is not recommended. Chloride [Moles/Vol] 105 mmol/L 98-107 [facility] Eosinophils/100 WBC (Bld) 3.4 % 0-5 [facility] Glucose [Mass/Vol] 190 mg/dL 74-106 [facility] Comment on above: Fasting Glucose resu lt greater than or equal to 126 mg/dL suggests DIABETES MELLITUS per A.D.A. criteria. Neutrophils (Bld) [#/Vol] 3.5 10*3/uL 2.0-7.7 [facility] Neutrophils/100 WBC (Bld) 56.1 % 47-70 [facility] Potassium [Moles/Vol] 4.0 mmol/L 3.5-5.1 [facility] Protein [Mass/Vol] 7.3 g/dL 6.4-8.2 [facility] Sodium [Moles/Vol] 138 mmol/L 136-145 [facility] WBC (Bld) [#/Vol] 6.2 10*3/uL 4.4-11.0 [facility] Blood erythrocytes count (nu mber/volume)Ordered By: Nidia Albright on 04-20-2023 RBC (Bld) [#/Vol] 4.31 10*6/uL 4.2-5.4 [facility] Blood hemoglobin measurement (mass/volume)Ordered By: Nidia Albright on 04-20-2023 Hemoglobin (Bld) [Mass/Vol] 12.8 g/dL 12.0-15.0 [facility] Blood lymphocytes/100 leukoc ytesOrdered By: Nidia Albright on 04-20-2023 Lymphocytes/100 WBC (Bld) 30.4 % 19-41 [facility] Blood monocytes/100 leukocyt esOrdered By: Nidia Albright on 04-20-2023 Monocytes/100 WBC (Bld) 8.8 % 0-[address] [facility] Blood platelet mean volumeOr dered By: Nidia Albright on 04-20-2023 Platelet mean volume (Bld) [Entitic vol] 10.3 fL 6.2-12.0 [facility] Determination of erythrocyte mean corpuscular volume (MCV)Ordered By: Nidia Albright on 04-20-2023 MCV (RBC) [Entitic vol] 90.7 fL 81-[address] [facility] Hematocrit Auto (Bld) [Volum e fraction]Ordered By: Nidia Albright on 04-20-2023 Hematocrit (Bld) [Volume fraction] 39.1 % 37-47 [facility] - Chemistry and C hemistry - challengeOrdered By: Nidia Albright on 04-20-2023 ALP [Catalytic activity/Vol] 88 U/L 45-117 [facility] ALT [Catalytic activity/Vol] 29 U/L 13-56 [facility] CO2 [Moles/Vol] 29.0 mmol/L 21.0-32.0 [facility] Globulin (S) [Mass/Vol] 3.9 g/dL 2.2-4.[address] [facility] Urea nitrogen/Creatinine [Mass ratio] 14.9 mg/mg 10-20 [facility] Laboratory - Hematology and Cell countsOrdered By: Nidia Albright on 04-20-2023 Erythrocyte distribution width (RBC) [Entitic vol] 44.3 fL 35.1-43.9 [facility] Erythrocyte distribution width (RBC) [Ratio] 13.2 % 11.6-14.6 [facility] Immature granulocytes/100 WBC (Bld) 0.300 % 0.0-0.9 [facility] Comment on above: IG% - Immature Granu locytes (promyelocytes, myelocytes and metamyelocytes) > 1% indicates that a LEFT SHIFT is Present. MCH (RBC) [Entitic mass] 29.7 pg 27.0-32.0 [facility] Nucleated RBC/100 WBC (Bld) [Ratio] 0 % 0-5 [facility] MCHC Auto (RBC) [Mass/Vol]Or dered By: Nidia Albright on 04-20-2023 MCHC (RBC) [Mass/Vol] 32.7 g/dL 32-36 [facility] No Panel InformationOrdered By: Nidia Albright on 04-20-2023 Estimated GFR (MDRD) Amer 91 mL/min >60 [facility] Comment on above: GFR Calc Estimated GFR (MDRD) Non-Af Amer 75 mL/min >60 [facility] Comment on above: Non- GFR Calc Platelets bldOrdered By: Aparna Albright on 04-20-2023 Platelets (Bld) [#/Vol] 283 10*3/uL 150-450 [facility] Serum or plasma albumin kashmir urement (mass/volume)Ordered By: Nidia Albright on 04-20-2023 Albumin [Mass/Vol] 3.4 g/dL 3.2-5.0 [facility] Serum or plasma albumin/glob ulin mass ratioOrdered By: Nidia Albright on 04-20-2023 Albumin/Globulin [Mass ratio] 0.9 {ratio} 0.9-2.4 [facility] Serum or plasma calcium kashmir urement (mass/volume)Ordered By: Nidia Albright on 04-20-2023 Calcium [Mass/Vol] 9.0 mg/dL 8.5-10.1 [facility] Serum or plasma creatinine m easurement (mass/volume)Ordered By: Nidia Albright on 04-20-2023 Creatinine [Mass/Vol] 0.80 mg/dL 0.55-1.02 [facility] Comment on above: The validity of the calculated GFR & GFRAA in patients over 70 years has not been determined. Clinical correlation is essential. Serum or plasma urea nitroge n measurement (mass/volume)Ordered By: Nidia Albright on 04-20-2023 Urea nitrogen [Mass/Vol] 12 mg/dL 7-18 [facility] Thin prep Papanicolaou smear with manual screeningOrdered By: Nidia Albright on 04-20-2023 Thin prep Papanicolaou smear with manual screening 19 U/L 15-37 [facility] Thin prep Papanicolaou smear with manual screening 4 5-15 [facility] Absolute lymphocyte countOrd ered By: Nidia Albright on 10-22-2022 Lymphocytes Auto (Unsp spec) [#/Vol] 2.08 10*3/uL 0.83-4.51 [facility] Basophil percentageOrdered B y: Nidia Albright on 10-22-2022 Basophils/100 WBC (Bld) 0.8 % 0-[address] [facility] Bilirubin [Mass/Vol] 0.40 mg/dL 0.20-1.00 [facility] Comment on above: For patients on eltr ombopag therapy, use of Dimension [place] TBIL is not recommended. Chloride [Moles/Vol] 105 mmol/L 98-107 [facility] Eosinophils/100 WBC (Bld) 2.6 % 0-5 [facility] Glucose [Mass/Vol] 135 mg/dL 74-106 [facility] Comment on above: Fasting Glucose resu lt greater than or equal to 126 mg/dL suggests DIABETES MELLITUS per A.D.A. criteria. Neutrophils (Bld) [#/Vol] 4.8 10*3/uL 2.0-7.7 [facility] Neutrophils/100 WBC (Bld) 60.1 % 47-70 [facility] Potassium [Moles/Vol] 3.7 mmol/L 3.5-5.1 [facility] Protein [Mass/Vol] 7.8 g/dL 6.4-8.2 [facility] Sodium [Moles/Vol] 139 mmol/L 136-145 [facility] WBC (Bld) [#/Vol] 8.0 10*3/uL 4.4-11.0 [facility] Blood erythrocytes count (nu mber/volume)Ordered By: Nidia Albright on 10-22-2022 RBC (Bld) [#/Vol] 4.25 10*6/uL 4.2-5.4 [facility] Blood hemoglobin measurement (mass/volume)Ordered By: Nidia Albright on 10-22-2022 Hemoglobin (Bld) [Mass/Vol] 12.8 g/dL 12.0-15.0 [facility] Blood lymphocytes/100 leukoc ytesOrdered By: Nidia Albright on 10-22-2022 Lymphocytes/100 WBC (Bld) 26.1 % 19-41 [facility] Blood monocytes/100 leukocyt esOrdered By: Nidia Albright on 10-22-2022 Monocytes/100 WBC (Bld) 10.0 % 0-[address] [facility] Blood platelet mean volumeOr dered By: Nidia Albright on 10-22-2022 Platelet mean volume (Bld) [Entitic vol] 10.1 fL 6.2-12.0 [facility] Determination of erythrocyte mean corpuscular volume (MCV)Ordered By: Nidia Albright on 10-22-2022 MCV (RBC) [Entitic vol] 92.2 fL 81-[address] [facility] Hematocrit Auto (Bld) [Volum e fraction]Ordered By: Nidia Albright on 10-22-2022 Hematocrit (Bld) [Volume fraction] 39.2 % 37-47 [facility] - Chemistry and C hemistry - challengeOrdered By: Nidia Albright on 10-22-2022 ALP [Catalytic activity/Vol] 155 U/L 45-117 [facility] ALT [Catalytic activity/Vol] 41 U/L 13-56 [facility] CO2 [Moles/Vol] 28.0 mmol/L 21.0-32.0 [facility] Globulin (S) [Mass/Vol] 4.4 g/dL 2.2-4.[address] [facility] Urea nitrogen/Creatinine [Mass ratio] 7.8 mg/mg 10-20 [facility] - Hematology and Cell countsOrdered By: Nidia Albright on 10-22-2022 Erythrocyte distribution width (RBC) [Entitic vol] 44.3 fL 35.1-43.9 [facility] Erythrocyte distribution width (RBC) [Ratio] 13.1 % 11.6-14.6 [facility] Immature granulocytes/100 WBC (Bld) 0.400 % 0.0-0.9 [facility] Comment on above: IG% - Immature Granu locytes (promyelocytes, myelocytes and metamyelocytes) > 1% indicates that a LEFT SHIFT is Present. MCH (RBC) [Entitic mass] 30.1 pg 27.0-32.0 [facility] Nucleated RBC/100 WBC (Bld) [Ratio] 0 % 0-5 [facility] MCHC Auto (RBC) [Mass/Vol]Or dered By: Nidia Albright on 10-22-2022 MCHC (RBC) [Mass/Vol] 32.7 g/dL 32-36 [facility] No Panel InformationOrdered By: Nidia Albright on 10-22-2022 Estimated GFR (MDRD) Amer 97 mL/min >60 [facility] Comment on above: GFR Calc Estimated GFR (MDRD) Non-Af Amer 80 mL/min >60 [facility] Comment on above: Non- GFR Calc Platelets bldOrdered By: Aparna Albright on 10-22-2022 Platelets (Bld) [#/Vol] 274 10*3/uL 150-450 [facility] Serum or plasma albumin kashmir urement (mass/volume)Ordered By: Nidia Albright on 10-22-2022 Albumin [Mass/Vol] 3.4 g/dL 3.2-5.0 [facility] Serum or plasma albumin/glob ulin mass ratioOrdered By: Nidia Albright on 10-22-2022 Albumin/Globulin [Mass ratio] 0.8 {ratio} 0.9-2.4 [facility] Serum or plasma calcium kashmir urement (mass/volume)Ordered By: Nidia Albright on 10-22-2022 Calcium [Mass/Vol] 9.1 mg/dL 8.5-10.1 [facility] Serum or plasma creatinine m easurement (mass/volume)Ordered By: Nidia Albright on 10-22-2022 Creatinine [Mass/Vol] 0.76 mg/dL 0.55-1.02 [facility] Comment on above: The validity of the calculated GFR & GFRAA in patients over 70 years has not been determined. Clinical correlation is essential. Serum or plasma urea nitroge n measurement (mass/volume)Ordered By: Nidia Albright on 10-22-2022 Urea nitrogen [Mass/Vol] 6 mg/dL 7-18 [facility] Thin prep Papanicolaou smear with manual screeningOrdered By: Nidia Albright on 10-22-2022 Thin prep Papanicolaou smear with manual screening 28 U/L 15-37 [facility] Thin prep Papanicolaou smear with manual screening 6 5-15 [facility] GLUCOSE, BLOOD (POC)on 08-10 Glucose [Mass/Vol] 228 mg/dL Abnormal 74 - 99 mg/dL [facility] No Panel Informationon 08-10 [facility] XR Cervical spine AP and Lat eral and obliqueon 08-10-2022 IMPRESSION: 1. Preservation of vertebral body height. 2. Mild degenerative changes in the lower cervical spine. Data Coder Operator: PSCB Transcribe Date/Time: Aug 10 2022 12:39P Dictated by : SAL FREY MD This examination was interpreted and the report reviewed and electronically signed by: SAL FREY MD on Aug 10 2022 12:41PM [facility] DIVISION OF RADIOLOGY * * *Final [...] neural foraminal narrowing. DIVISION OF RADIOLOGY Provider, [facility] - 08/10/2022 * * *Final Report* * [...] degenerative changes in the lower cervical spine. Data Coder Operator: [email or web address] Transcribe Date/Time: Aug 10 2022 12:39P Dictated by : SAL FREY MD This examination was interpreted and the report reviewed and electronically signed by: SAL FREY MD on Aug 10 2022 12:41PM EST [facility] Radiology Study observation (narrative) [facility] XR Cervical spine AP and Lat eral and obliqueOrdered By: Cc Provider on 08-10-2022 [facility] COLONOSCOPY DIAGNOSTICon [facility] No Panel Informationon 05-19 Miscellaneous Test See comment [facility] Comment on above: Sent directly to [facility] per ordering physician. Absolute lymphocyte countOrd ered By: Dr. Albright on 05-07-2022 Lymphocytes Auto (Unsp spec) [#/Vol] 1.47 10*3/uL 0.83-4.51 [facility] Basophil percentageOrdered B y: Dr. Albright on 05-07-2022 Basophils/100 WBC (Bld) 0.8 % 0-[address] [facility] Bilirubin [Mass/Vol] 0.30 mg/dL 0.20-1.00 [facility] Comment on above: For patients on eltr ombopag therapy, use of [place] TBIL is not recommended. Chloride [Moles/Vol] 102 mmol/L 98-107 [facility] Eosinophils/100 WBC (Bld) 2.2 % 0-5 [facility] Glucose [Mass/Vol] 135 mg/dL 74-106 [facility] Comment on above: Fasting Glucose resu lt greater than or equal to 126 mg/dL suggests DIABETES MELLITUS per A.D.A. criteria. Neutrophils (Bld) [#/Vol] 4.1 10*3/uL 2.0-7.7 [facility] Neutrophils/100 WBC (Bld) 65.6 % 47-70 [facility] Potassium [Moles/Vol] 3.9 mmol/L 3.5-5.1 [facility] Protein [Mass/Vol] 7.6 g/dL 6.4-8.2 [facility] Sodium [Moles/Vol] 137 mmol/L 136-145 [facility] WBC (Bld) [#/Vol] 6.3 10*3/uL 4.4-11.0 [facility] Blood erythrocytes count (nu mber/volume)Ordered By: Dr. Albright on 05-07-2022 RBC (Bld) [#/Vol] 4.38 10*6/uL 4.2-5.4 [facility] Blood hemoglobin measurement (mass/volume)Ordered By: Dr. Albright on 05-07-2022 Hemoglobin (Bld) [Mass/Vol] 13.1 g/dL 12.0-15.0 [facility] Blood lymphocytes/100 leukoc ytesOrdered By: Dr. Albright on 05-07-2022 Lymphocytes/100 WBC (Bld) 23.5 % 19-41 [facility] Blood monocytes/100 leukocyt esOrdered By: Dr. Albright on 05-07-2022 Monocytes/100 WBC (Bld) 7.7 % 0-10 [facility] Blood platelet mean volumeOr dered By: Dr. Albright on 05-07-2022 Platelet mean volume (Bld) [Entitic vol] 10.2 fL 6.2-12.0 [facility] Determination of erythrocyte mean corpuscular volume (MCV)Ordered By: Dr. Albright on 05-07-2022 MCV (RBC) [Entitic vol] 91.3 fL 81-[address] [facility] Hematocrit Auto (Bld) [Volum e fraction]Ordered By: Dr. Albright on 05-07-2022 Hematocrit (Bld) [Volume fraction] 40.0 % 37-47 [facility] Laboratory - Chemistry and C hemistry - challengeOrdered By: Dr. Albright on 05-07-2022 ALP [Catalytic activity/Vol] 75 U/L 45-117 [facility] ALT [Catalytic activity/Vol] 31 U/L 13-56 [facility] CO2 [Moles/Vol] 30.0 mmol/L 21.0-32.0 [facility] Globulin (S) [Mass/Vol] 3.8 g/dL 2.2-4.[address] [facility] Urea nitrogen/Creatinine [Mass ratio] 12.5 mg/mg 10-20 [facility] Laboratory - Hematology and Cell countsOrdered By: Dr. Albright on 05-07-2022 Erythrocyte distribution width (RBC) [Entitic vol] 44.7 fL 35.1-43.9 [facility] Erythrocyte distribution width (RBC) [Ratio] 13.2 % 11.6-14.6 [facility] Immature granulocytes/100 WBC (Bld) 0.200 % 0.0-0.9 [facility] Comment on above: IG% - Immature Granu locytes (promyelocytes, myelocytes and metamyelocytes) > 1% indicates that a LEFT SHIFT is Present. MCH (RBC) [Entitic mass] 29.9 pg 27.0-32.0 [facility] Nucleated RBC/100 WBC (Bld) [Ratio] 0 % 0-5 [facility] MCHC Auto (RBC) [Mass/Vol]Or dered By: Dr. Albright on 05-07-2022 MCHC (RBC) [Mass/Vol] 32.8 g/dL 32-36 [facility] No Panel InformationOrdered By: Dr. Albright on 05-07-2022 Estimated GFR (MDRD) Amer 92 mL/min >60 [facility] Comment on above: GFR Calc Estimated GFR (MDRD) Non-Af Amer 76 mL/min >60 [facility] Comment on above: Non- GFR Calc Platelets bldOrdered By: Dr. Albright on 05-07-2022 Platelets (Bld) [#/Vol] 302 10*3/uL 150-450 [facility] Serum or plasma albumin kashmir urement (mass/volume)Ordered By: Dr. Albright on 05-07-2022 Albumin [Mass/Vol] 3.8 g/dL 3.2-5.0 [facility] Serum or plasma albumin/glob ulin mass ratioOrdered By: Dr. Albright on 05-07-2022 Albumin/Globulin [Mass ratio] 1.0 {ratio} 0.9-2.4 [facility] Serum or plasma calcium kashmir urement (mass/volume)Ordered By: Dr. Albright on 05-07-2022 Calcium [Mass/Vol] 8.9 mg/dL 8.5-10.1 [facility] Serum or plasma creatinine m easurement (mass/volume)Ordered By: Dr. Albright on 05-07-2022 Creatinine [Mass/Vol] 0.80 mg/dL 0.55-1.02 [facility] Comment on above: The validity of the calculated GFR & GFRAA in patients over 70 years has not been determined. Clinical correlation is essential. Serum or plasma urea nitroge n measurement (mass/volume)Ordered By: Dr. Albright on 05-07-2022 Urea nitrogen [Mass/Vol] 10 mg/dL 7-18 [facility] Thin prep Papanicolaou smear with manual screeningOrdered By: Dr. Albright on 05-07-2022 Thin prep Papanicolaou smear with manual screening 20 U/L 15-37 [facility] Thin prep Papanicolaou smear with manual screening 5 5-15 [facility] DEDE SCREENINGon 03-30-2022 [facility] Absolute lymphocyte counton 11-07-2021 Lymphocytes Auto (Unsp spec) [#/Vol] 1.47 10*3/uL 0.83-4.51 [facility] Work Phone: Basophil percentageon 2021 Basophils/100 WBC (Bld) 1.0 % 0-[address] [facility] Work Phone: Bilirubin [Mass/Vol] 0.30 mg/dL 0.20-1.00 [facility] Work Phone: Comment on above: For patients on eltr ombopag therapy, use of Dimension [place] TBIL is not recommended. Chloride [Moles/Vol] 102 mmol/L 98-107 [facility] Work Phone: Eosinophils/100 WBC (Bld) 2.4 % 0-5 [facility] Work Phone: Glucose [Mass/Vol] 152 mg/dL 74-106 [facility] Work Phone: Comment on above: Fasting Glucose resu lt greater than or equal to 126 mg/dL suggests DIABETES MELLITUS per A.D.A. criteria. Neutrophils (Bld) [#/Vol] 3.7 10*3/uL 2.0-7.7 [facility] Work Phone: Neutrophils/100 WBC (Bld) 63.4 % 47-70 [facility] Work Phone: Potassium [Moles/Vol] 4.2 mmol/L 3.5-5.1 [facility] Work Phone: Protein [Mass/Vol] 7.9 g/dL 6.4-8.2 [facility] Work Phone: Sodium [Moles/Vol] 138 mmol/L 136-145 [facility] Work Phone: WBC (Bld) [#/Vol] 5.8 10*3/uL 4.4-11.0 [facility] Work Phone: Blood erythrocytes count (nu mber/volume)on 11-07-2021 RBC (Bld) [#/Vol] 4.33 10*6/uL 4.2-5.4 [facility] Work Phone: Blood hemoglobin measurement (mass/volume)on 11-07-2021 Hemoglobin (Bld) [Mass/Vol] 13.4 g/dL 12.0-15.0 [facility] Work Phone: Blood lymphocytes/100 leukoc yteson 11-07-2021 Lymphocytes/100 WBC (Bld) 25.3 % 19-41 [facility] Work Phone: [phone] Blood monocytes/100 leukocyt eson 11-07-2021 Monocytes/100 WBC (Bld) 7.7 % 0-[address] [facility] Work Phone: [phone] Blood platelet mean volumeon 11-07-2021 Platelet mean volume (Bld) [Entitic vol] 10.2 fL 6.2-12.0 [facility] Work Phone: [phone] Determination of erythrocyte mean corpuscular volume (MCV)on 11-07-2021 MCV (RBC) [Entitic vol] 92.6 fL 81-[address] [facility] Work Phone: [phone] Hematocrit Auto (Bld) [Volum e fraction]on 11-07-2021 Hematocrit (Bld) [Volume fraction] 40.1 % 37-47 [facility] Work Phone: Laboratory - Chemistry and C hemistry - challengeon 11-07-2021 ALP [Catalytic activity/Vol] 88 U/L 45-117 [facility] Work Phone: [phone] ALT [Catalytic activity/Vol] 31 U/L 13-56 [facility] Work Phone: [phone] CO2 [Moles/Vol] 29.0 mmol/L 21.0-32.0 [facility] Work Phone: Globulin (S) [Mass/Vol] 4.0 g/dL 2.2-4.[address] [facility] Work Phone: [phone] Urea nitrogen/Creatinine [Mass ratio] 17.0 mg/mg 10-20 [facility] Work Phone: Laboratory - Hematology and Cell countson 11-07-2021 Erythrocyte distribution width (RBC) [Entitic vol] 43.9 fL 35.1-43.9 [facility] Work Phone: Erythrocyte distribution width (RBC) [Ratio] 12.9 % 11.6-14.6 [facility] Work Phone: [phone] Immature granulocytes/100 WBC (Bld) 0.200 % 0.0-0.9 [facility] Work Phone: Comment on above: IG% - Immature Granu locytes (promyelocytes, myelocytes and metamyelocytes) > 1% indicates that a LEFT SHIFT is Present. MCH (RBC) [Entitic mass] 30.9 pg 27.0-32.0 [facility] Work Phone: Nucleated RBC/100 WBC (Bld) [Ratio] 0 % 0-5 [facility] Work Phone: [phone] MCHC Auto (RBC) [Mass/Vol]on 11-07-2021 MCHC (RBC) [Mass/Vol] 33.4 g/dL 32-36 [facility] Work Phone: No Panel Informationon 11-07 Estimated GFR (MDRD) Amer 97 mL/min >60 [facility] Work Phone: Comment on above: GFR Calc Estimated GFR (MDRD) Non-Af Amer 80 mL/min >60 [facility] Work Phone: Comment on above: Non- GFR Calc Platelets bldon 11-07-2021 Platelets (Bld) [#/Vol] 316 10*3/uL 150-450 [facility] Work Phone: Serum or plasma albumin kashmir urement (mass/volume)on 11-07-2021 Albumin [Mass/Vol] 3.9 g/dL 3.2-5.0 [facility] Work Phone: [phone] Serum or plasma albumin/glob ulin mass ratioon 11-07-2021 Albumin/Globulin [Mass ratio] 1.0 {ratio} 0.9-2.4 [facility] Work Phone: [phone] Serum or plasma calcium kashmir urement (mass/volume)on 11-07-2021 Calcium [Mass/Vol] 9.2 mg/dL 8.5-10.1 [facility] Work Phone: Serum or plasma creatinine m easurement (mass/volume)on 11-07-2021 Creatinine [Mass/Vol] 0.76 mg/dL 0.55-1.02 [facility] Work Phone: Comment on above: The validity of the calculated GFR & GFRAA in patients over 70 years has not been determined. Clinical correlation is essential. Serum or plasma urea nitroge n measurement (mass/volume)on 11-07-2021 Urea nitrogen [Mass/Vol] 13 mg/dL 7-18 [facility] Work Phone: Thin prep Papanicolaou smear with manual screeningon 11-07-2021 Thin prep Papanicolaou smear with manual screening 22 U/L 15-37 [facility] Work Phone: Thin prep Papanicolaou smear with manual screening 7 5-15 [facility] Work Phone: XR Foot - left AP and Latera l and obliqueon 09-02-2020 IMPRESSION: ENTHESOPHYTES DESCRIBED. DEGENERATIVE CHANGE. NO ACUTE FRACTURE Data Coder Operator: [facility] Transcribe Date/Time: Sep 02 2020 11:08A Dictated by : JENNYFER GIBBONS MD This examination was interpreted and the report reviewed and electronically signed by: JENNYFER GIBBONS MD on Sep 02 2020 11:10AM [facility] DIVISION OF RADIOLOGY * * *Final [...] Moderate plantar enthesophyte. DIVISION OF RADIOLOGY Provider, [facility] - 09/02/2020 * * *Final Report* * [...] ENTHESOPHYTES DESCRIBED. DEGENERATIVE CHANGE. NO ACUTE FRACTURE Data Coder Operator: NEISHA Transcribe Date/Time: Sep 02 2020 11:08A Dictated by : JENNYFER GIBBONS MD This examination was interpreted and the report reviewed and electronically signed by: JENNYFER GIBBONS MD on Sep 02 2020 11:10AM EST [facility] Radiology Study observation (narrative) [facility] XR Foot - left AP and Latera l and obliqueOrdered By: [facility] Provider on 09-02-2020 [facility] Vital Signs Date Time Vital Sign Value Performing Clinician Facility 09-19-2024 09:29-0400 Body temperature 97.7 [degF] Ebony Hong APRN.SALES EXPERT Work Phone: [facility] 09-19-2024 09:29-0400 Diastolic blood pressure 78 mm[Hg] Ebony Hong MORTGAGE ADVISOR.SALES EXPERT Work Phone: [facility] 09-19-2024 09:29-0400 Heart rate 61 /min Ebony Hong APRN.SALES EXPERT Work Phone: [facility] 09-19-2024 09:29-0400 Systolic blood pressure 132 mm[Hg] Ebony Hong MORTGAGE ADVISOR.SALES EXPERT Work Phone: [facility] 09-19-2024 09:28-0400 Body mass index (BMI) [Ratio] 30.27 kg/m2 Ebony Hong APRN.SALES EXPERT Work Phone: [facility] 09-19-2024 09:28-0400 Body weight 80 kg Ebony Hong MORTGAGE ADVISOR.SALES EXPERT Work Phone: [facility] 09-19-2024 09:28-0400 Respiratory rate 16 /min Ebony Hong MORTGAGE ADVISOR.SALES EXPERT Work Phone: [facility] 09-01-2024 12:01-0400 Body mass index (BMI) [Ratio] 30.65 kg/m2 Ebony Hong MORTGAGE ADVISOR.SALES EXPERT Work Phone: [facility] 09-01-2024 12:01-0400 Body temperature 98.6 [degF] Ebony Hong MORTGAGE ADVISOR.SALES EXPERT Work Phone: [facility] 09-01-2024 12:01-0400 Body weight 81 kg Ebony Hong MORTGAGE ADVISOR.SALES EXPERT Work Phone: [facility] 09-01-2024 12:01-0400 Diastolic blood pressure 79 mm[Hg] Ebony Hong MORTGAGE ADVISOR.SALES EXPERT Work Phone: [facility] 09-01-2024 12:01-0400 Heart rate 67 /min Ebony Hong MORTGAGE ADVISOR.SALES EXPERT Work Phone: [facility] 09-01-2024 12:01-0400 Respiratory rate 14 /min Ebony Hong MORTGAGE ADVISOR.SALES EXPERT Work Phone: [facility] 09-01-2024 12:01-0400 SaO2% (BldA) [Mass fraction] 96 % Ebony Hong MORTGAGE ADVISOR.SALES EXPERT Work Phone: [facility] 09-01-2024 12:01-0400 Systolic blood pressure 152 mm[Hg] Ebony Hong MORTGAGE ADVISOR.SALES EXPERT Work Phone: [facility] 08-28-2024 00:34-0400 Body temperature 98.4 [degF] Dr. Iglesia Messina MD Work Phone: [facility] 08-28-2024 00:34-0400 Diastolic blood pressure 80 mm[Hg] Dr. Iglesia Messina MD Work Phone: [facility] 08-28-2024 00:34-0400 Heart rate 92 /min Dr. Iglesia Messina MD Work Phone: [facility] 08-28-2024 00:34-0400 Respiratory rate 14 /min Dr. Iglesia Messina MD Work Phone: [facility] 08-28-2024 00:34-0400 SaO2% (BldA) [Mass fraction] 100 % Dr. Iglesia Messina MD Work Phone: [facility] 08-28-2024 00:34-0400 Systolic blood pressure 104 mm[Hg] Dr. Iglesia Messina MD Work Phone: [facility] 08-27-2024 21:42-0400 Body mass index (BMI) [Ratio] 31.7 kg/m2 Dr. Iglesia Messina MD Work Phone: [facility] 08-27-2024 21:42-0400 Body weight 84.[address] Iglesia Messina MD Work Phone: [facility] 08-27-2024 21:33-0400 Body height 162.[address] Iglesia Messina MD Work Phone: [facility] 07-24-2024 09:04-0400 Body mass index (BMI) [Ratio] 31.07 kg/m2 Iglesia Messina MD Work Phone: [facility] 07-24-2024 09:04-0400 Body weight 82.1 kg Iglesia Messina MD Work Phone: [facility] 07-24-2024 09:04-0400 Diastolic blood pressure 76 mm[Hg] Iglesia Messina MD Work Phone: [facility] 07-24-2024 09:04-0400 Heart rate 60 /min Iglesia Messina MD Work Phone: [facility] 07-24-2024 09:04-0400 Respiratory rate 12 /min Iglesia Messina MD Work Phone: [facility] 07-24-2024 09:04-0400 Systolic blood pressure 120 mm[Hg] Iglesia Messina MD Work Phone: [facility] 04-26-2024 09:33-0500 Body mass index (BMI) [Ratio] 31.26 kg/m2 Sonny Adams MD Work Phone: [facility] 04-26-2024 09:33-0500 Body temperature 97.11 [degF] Sonny Adams MD Work Phone: [facility] 04-26-2024 09:33-0500 Body weight 82.6 kg Sonny Adams MD Work Phone: [facility] 04-26-2024 09:33-0500 Diastolic blood pressure 80 mm[Hg] Sonny Adams MD Work Phone: [facility] 04-26-2024 09:33-0500 Heart rate 80 /min Sonny Adams MD Work Phone: [facility] 04-26-2024 09:33-0500 Respiratory rate 19 /min Sonny Adams MD Work Phone: [facility] 04-26-2024 09:33-0500 SaO2% (BldA) [Mass fraction] 94 % Sonny Adams MD Work Phone: [facility] 04-26-2024 09:33-0500 Systolic blood pressure 160 mm[Hg] Sonny Adams MD Work Phone: [facility] 02-15-2024 13:00-0400 Diastolic blood pressure 86 mm[Hg] Efren Golias PT Work Phone: [facility] 02-15-2024 13:00-0400 Heart rate 69 /min Efren Golias PT Work Phone: [facility] 02-15-2024 13:00-0400 Systolic blood pressure 135 mm[Hg] Efren Golias PT Work Phone: [facility] 01-19-2024 08:42-0400 Body mass index (BMI) [Ratio] 30.73 kg/m2 Iglesia Messina MD Work Phone: [facility] 01-19-2024 08:42-0400 Body temperature 97.11 [degF] Iglesia Messina MD Work Phone: [facility] 01-19-2024 08:42-0400 Body weight 81.2 kg Iglesia Messina MD Work Phone: [facility] 01-19-2024 08:42-0400 Diastolic blood pressure 66 mm[Hg] Iglesia Messina MD Work Phone: [facility] 01-19-2024 08:42-0400 Heart rate 68 /min Iglesia Messina MD Work Phone: [facility] 01-19-2024 08:42-0400 Respiratory rate 18 /min Iglesia Messina MD Work Phone: [facility] 01-19-2024 08:42-0400 SaO2% (BldA) [Mass fraction] 96 % Iglesia Messina MD Work Phone: [facility] 01-19-2024 08:42-0400 Systolic blood pressure 122 mm[Hg] Iglesia Messina MD Work Phone: [facility] 07-20-2023 16:08-0400 Body height 162.6 cm Iglesia Messina MD Work Phone: [facility] 07-20-2023 16:08-0400 Body mass index (BMI) [Ratio] 32.1 kg/m2 Iglesia Messina MD Work Phone: [facility] 07-20-2023 16:08-0400 Body weight 84.82 kg Iglesia Messina MD Work Phone: [facility] 07-20-2023 16:08-0400 Diastolic blood pressure 76 mm[Hg] Iglesia Messina MD Work Phone: [facility] 07-20-2023 16:08-0400 Heart rate 80 /min Iglesia Messina MD Work Phone: [facility] 07-20-2023 16:08-0400 Respiratory rate 16 /min Iglesia Messina MD Work Phone: [facility] 07-20-2023 16:08-0400 Systolic blood pressure 128 mm[Hg] Iglesia Messina MD Work Phone: [facility] 01-04-2023 15:36-0400 Body height 162.6 cm Iglesia Messina MD Work Phone: [facility] 01-04-2023 15:36-0400 Body weight 80.74 kg Iglesia Messina MD Work Phone: [facility] 01-04-2023 15:36-0400 Diastolic blood pressure 80 mm[Hg] Iglesia Messina MD Work Phone: [facility] 01-04-2023 15:36-0400 Heart rate 70 /min Iglesia Messina MD Work Phone: [facility] 01-04-2023 15:36-0400 Respiratory rate 16 /min Iglesia Messina MD Work Phone: [facility] 01-04-2023 15:36-0400 Systolic blood pressure 124 mm[Hg] Iglesia Messina MD Work Phone: [facility] 08-25-2022 08:00-0400 Body weight 83.01 kg Tory Linkr MORTGAGE ADVISOR.RIB BENDER Work Phone: [facility] 08-25-2022 08:00-0400 Diastolic blood pressure 70 mm[Hg] Tory Carmen MORTGAGE ADVISOR.RIB BENDER Work Phone: [facility] 08-25-2022 08:00-0400 Heart rate 67 /min Tory Carmen MORTGAGE ADVISOR.RIB BENDER Work Phone: [facility] 08-25-2022 08:00-0400 SaO2% (BldA) [Mass fraction] 96 % Tory Carmen MORTGAGE ADVISOR.RIB BENDER Work Phone: [facility] 08-25-2022 08:00-0400 Systolic blood pressure 124 mm[Hg] Tory Carmen MORTGAGE ADVISOR.RIB BENDER Work Phone: [facility] 08-11-2022 07:20-0400 Diastolic blood pressure 96 mm[Hg] Tory Carmen MORTGAGE ADVISOR.RIB BENDER Work Phone: [facility] 08-11-2022 07:20-0400 Systolic blood pressure 164 mm[Hg] Tory Carmen MORTGAGE ADVISOR.RIB BENDER Work Phone: [facility] 08-11-2022 07:18-0400 Body weight 83.01 kg Tory Carmen MORTGAGE ADVISOR.RIB BENDER Work Phone: [facility] 08-11-2022 07:18-0400 Heart rate 76 /min Tory Carmen MORTGAGE ADVISOR.RIB BENDER Work Phone: [facility] 08-11-2022 07:18-0400 SaO2% (BldA) [Mass fraction] 95 % Tory Carmen MORTGAGE ADVISOR.RIB BENDER Work Phone: [facility] 08-10-2022 11:28-0400 Body temperature 97.3 [degF] Dia Athy PA-C Work Phone: [facility] 08-10-2022 11:28-0400 Body weight 83.19 kg Dia Athy PA-C Work Phone: [facility] 08-10-2022 11:28-0400 Diastolic blood pressure 90 mm[Hg] Dia Athy PA-C Work Phone: [facility] 08-10-2022 11:28-0400 Heart rate 77 /min Dia Athy PA-C Work Phone: [facility] 08-10-2022 11:28-0400 Respiratory rate 21 /min Dia Athy PA-C Work Phone: [facility] 08-10-2022 11:28-0400 SaO2% (BldA) [Mass fraction] 97 % Dia Athy PA-C Work Phone: [facility] 08-10-2022 11:28-0400 Systolic blood pressure 162 mm[Hg] Dia Athy PA-C Work Phone: [facility] 06-11-2022 08:53-0500 Diastolic blood pressure 57 mm[Hg] Artis Bradford MD Work Phone: [facility] 06-11-2022 08:53-0500 Heart rate 59 /min Artis Bradford MD Work Phone: [facility] 06-11-2022 08:53-0500 Respiratory rate 16 /min Artis Bradford MD Work Phone: [facility] 06-11-2022 08:53-0500 SaO2% (BldA) [Mass fraction] 91 % Artis Bradford MD Work Phone: [facility] 06-11-2022 08:53-0500 Systolic blood pressure 100 mm[Hg] Artis Bradford MD Work Phone: [facility] 06-11-2022 07:51-0500 Body temperature 98.29 [degF] Artis Bradford MD Work Phone: [facility] 05-29-2022 09:58-0500 Body height 162.6 cm Artis Bradford MD Work Phone: [facility] 05-29-2022 09:58-0500 Body temperature 96.01 [degF] Artis Bradford MD Work Phone: [facility] 05-29-2022 09:58-0500 Body weight 81.19 kg Artis Bradford MD Work Phone: [facility] 05-29-2022 09:58-0500 Diastolic blood pressure 78 mm[Hg] Artis Bradford MD Work Phone: [facility] 05-29-2022 09:58-0500 Heart rate 70 /min Artis Bradford MD Work Phone: [facility] 05-29-2022 09:58-0500 SaO2% (BldA) [Mass fraction] 99 % Artis Bradford MD Work Phone: [facility] 05-29-2022 09:58-0500 Systolic blood pressure 138 mm[Hg] Artis Bradford MD Work Phone: [facility] 05-26-2022 09:38-0500 Body temperature 96.6 [degF] Iglesia Messina MD Work Phone: [facility] 05-26-2022 09:38-0500 Body weight 80.29 kg Iglesia Messina MD Work Phone: [facility] 05-26-2022 09:38-0500 Diastolic blood pressure 70 mm[Hg] Iglesia Messina MD Work Phone: [facility] 05-26-2022 09:38-0500 Heart rate 68 /min Iglesia Messina MD Work Phone: [facility] 05-26-2022 09:38-0500 Respiratory rate 18 /min Iglesia Messina MD Work Phone: [facility] 05-26-2022 09:38-0500 SaO2% (BldA) [Mass fraction] 97 % Iglesia Messina MD Work Phone: [facility] 05-26-2022 09:38-0500 Systolic blood pressure 114 mm[Hg] Iglesia Messina MD Work Phone: [facility] Encounters Encounter Date Encounter Type Care Provider Facility Start: 10-26-2024 End: 10-26-[address] Iglesia Messina MD Work Phone: -[facility]ound [facility] Start: 10-26-2024 End: 10-26-[address] Nidia Albright MD -Ultrasound [facility] Work Phone: Start: 10-26-2024 End: 10-26-2024 ambulatory Nidia Albright Facility:[facility] Start: 10-19-2024 End: 10-19-[address] [facility] Facility:[facility] Start: 10-13-2024 End: 10-13-[address] Iglesia Messina MD Work Phone: -[facility] Start: 10-13-2024 End: 10-13-[address] Nidia Albright MD -Laboratory [place] Work Phone: Start: 10-13-2024 End: 10-13-2024 ambulatory Nidia Albright Facility:[facility] Start: 09-21-2024 End: 11-21-2024 Follow-up encounter Ebony Hong APRN.SALES EXPERT Work Phone: [facility] Start: 09-19-2024 End: 09-19-2024 Office outpatient visit 25 minutes Ebony Hong APRN.SALES EXPERT Work Phone: [facility] Comment on above: Urinary tract infect ion with hematuria, site unspecified (Primary Dx); Microscopic hematuria; Urinary, incontinence, stress female; Atrophic vaginitis; Fatigue, unspecified type; Constipation, unspecified constipation type; Seasonal allergic rhinitis, unspecified trigger; Iron deficiency anemia, unspecified iron deficiency anemia type; Gastroesophageal reflux disease without esophagitis; Acute cough; Hot flashes Start: 09-19-2024 End: 09-19-2024 ambulatory IGLESIA MESSINA Facility:[facility] Start: 09-15-2024 End: 09-15-2024 ambulatory [facility] Facility:[facility] Start: 09-14-2024 End: 09-14-2024 Refill Iglesia Messina MD Work Phone: Internal [facility] Comment on above: Refill Request Start: 09-04-2024 End: 09-19-2024 Follow-up encounter Ebony Hong APRN.SALES EXPERT Work Phone: [facility] Start: 09-01-2024 End: 09-01-2024 Office outpatient visit 25 minutes Ebony Hong APRN.SALES EXPERT Work Phone: [facility] Comment on above: Urinary tract infect ion with hematuria, site unspecified (Primary Dx); Nausea; Diarrhea, unspecified type; SOB (shortness of breath); PND (paroxysmal nocturnal dyspnea); Controlled type 2 diabetes mellitus without complication, with long-term current use of insulin (HCC); Essential hypertension Start: 09-01-2024 End: 09-01-2024 [facility] Facility:[facility] Start: 08-27-2024 End: 08-28-2024 Emergency department patient visit Dr. Iglesia Messina MD Work Phone: -Emergency Department Work Phone: Start: 07-24-2024 End: 07-24-2024 [facility] Facility:[facility] Start: 07-24-2024 End: 07-24-2024 Office outpatient visit 25 minutes Iglesia Messina MD Work Phone: [facility] Comment on above: Essential hypertensi on (Primary Dx); Controlled type 2 diabetes mellitus without complication, with long-term current use of insulin (HCC); Gastroesophageal reflux disease without esophagitis; Mixed hyperlipidemia; Vitamin D deficiency; Encounter for immunization Start: 07-14-2024 End: 07-14-2024 [facility] Facility:[facility] Start: 04-28-2024 End: 04-28-2024 [facility] MORTGAGE ADVISOR.SALES EXPERT Work Phone: [facility] [place] [place] Comment on above: med side effect Start: 04-26-2024 End: 04-26-2024 Subsequent hospital visit by physician Xr [facility] Work Phone: Radiology Comment on above: Subacute cough [R05. 2] Start: 04-26-2024 End: 04-26-2024 [facility] Facility:[facility] Start: 04-26-2024 End: 04-26-2024 Office outpatient visit 15 minutes Sonny Adams MD Work Phone: [facility] Comment on above: Subacute cough (Prim keon Dx) Start: 04-26-2024 End: 04-26-2024 [facility] Start: 04-03-2024 End: 04-03-2024 ambulatory [facility] Facility:[facility] Start: 04-03-2024 End: 04-03-2024 Subsequent hospital visit by physician Screen Mammo [facility] Comment on above: Encounter for screen ing mammogram for breast cancer [Z12.31] Start: 02-22-2024 End: 02-22-2024 ambulatory Efrensnehal Macias PT Work Phone: [facility] Comment on above: Benign paroxysmal po sitional vertigo of right ear (Primary Dx) Start: 02-15-2024 End: 02-15-2024 ambulatory Efren Golusman PT Work Phone: [facility] Comment on above: Benign paroxysmal po sitional vertigo, unspecified laterality Start: 01-24-2024 End: 01-25-2024 Refill Ebony Hong APRSarahSALES EXPERT Work Phone: [facility] Comment on above: Refill Request Start: 01-19-2024 End: 01-19-2024 ambulatory IGLESIA MESSINA Facility:[facility] Start: 01-19-2024 End: 01-19-2024 Office outpatient visit 15 minutes Iglesia Messina MD Work Phone: [facility] Comment on above: Controlled type 2 di [...] Start: 01-19-2024 End: 01-19-2024 ambulatory IGLESIA MESSINA Facility:[facility] Start: 01-14-2024 End: 01-14-2024 ambulatory IGLESIA MESSINA Facility:[facility] Start: 12-31-2023 End: 12-31-2023 Emergency department patient visit Jackie [facility] Facility:[facility] Start: 10-16-2023 Refill Iglesia lange MD Work Phone: [facility] Comment on above: Refill Request Start: 07-20-2023 End: 08-19-2023 Office outpatient visit 25 minutes Iglesia Messina MD Work Phone: [facility] Comment on above: Controlled type 2 di [...] ambulatory Iglesia lange MD Work Phone: Internal [facility] Comment on above: prescription Refill Request Start: 07-01-2023 Refill Ebony KING Work Phone: [facility] Comment on above: Refill Request Start: 04-20-2023 End: 04-20-2023 [facility] Work Phone: Start: 04-20-2023 End: 04-20-2023 Patient encounter procedure [facility] Work Phone: Start: 03-08-2023 ambulatory Iglesia lange MD Work Phone: [facility] Comment on above: mammogram Start: 01-04-2023 End: 01-04-2023 Office outpatient visit 25 minutes Iglesia Messina MD Work Phone: [facility] Comment on above: Controlled type 2 di abetes mellitus without complication, with long-term current use of insulin (HCC) (Primary Dx); Diarrhea, unspecified type; Essential hypertension; Vitamin D deficiency; Mixed hyperlipidemia; Allergic rhinitis, unspecified seasonality, unspecified trigger Start: 10-22-2022 End: 10-22-2022 ambulatory [facility] Work Phone: Start: 10-22-2022 End: 10-22-2022 Patient encounter procedure [facility] Work Phone: Start: 08-25-2022 End: 08-25-2022 Patient encounter procedure Tory Morales APRN.CNP Work Phone: [facility] Comment on above: Neck pain (Primary D x); Post-nasal drainage; Seasonal allergic rhinitis, unspecified trigger; Controlled type 2 diabetes mellitus without complication, with long-term current use of insulin (HCC); Essential hypertension Start: 08-11-2022 End: 08-11-2022 Patient encounter procedure Tory Morales ILA Work Phone: [facility] Comment on above: Neck pain (Primary D x) Start: 08-10-2022 Telephone encounter Dia aguirre PA-C Work Phone: [facility] Comment on above: Results Start: 08-10-2022 End: 08-10-2022 Subsequent hospital visit by physician Uzma [facility] Work Phone: Radiology Comment on above: Neck pain [M54.2] Start: 08-10-2022 End: 08-10-2022 Patient encounter procedure Dia GRANT-C Work Phone: [facility] Comment on above: Dizziness (Primary D x); Neck pain Start: 06-11-2022 End: 06-11-2022 Subsequent hospital visit by physician Artis Bradford MD Work Phone: Ambulatory Surgery Comment on above: Colon cancer screeni ng [Z12.11] Start: 06-10-2022 Refill Iglesia lange MD Work Phone: [facility] Comment on above: Refill Request Start: 05-29-2022 End: 05-29-2022 Patient encounter procedure Artis Bradford MD Work Phone: General Surgery Comment on above: Colon cancer screeni ng Start: 05-26-2022 End: 05-26-2022 Office outpatient visit 25 minutes Iglesia Messina MD Work Phone: [facility] Comment on above: Controlled type 2 di [...] for immunization Start: 05-19-2022 End: 05-19-2022 ambulatory [facility] Work Phone: Start: 05-19-2022 End: 05-19-2022 Patient encounter procedure [facility] Start: 05-07-2022 End: 05-07-2022 ambulatory [facility] Work Phone: Start: 05-07-2022 End: 05-07-2022 Patient encounter procedure [facility] Start: 03-31-2022 Documentation procedure [facility] Start: 03-31-2022 Letter encounter Mammography Coordinator [facility] Department Start: 03-30-2022 End: 03-30-2022 Subsequent hospital visit by physician Screen Mammo [facility] Comment on above: Encounter for screen ing mammogram for breast cancer [Z12.31] Start: 03-25-2022 ambulatory Iglesia lange MD Work Phone: [facility] Comment on above: Mamagram Start: 02-24-2022 ambulatory Iglesia lange MD Work Phone: [facility] Comment on above: glucose meter and te st strips Start: 12-23-2021 ambulatory Iglesia lange MD Work Phone: [facility] Start: 12-23-2021 Patient encounter procedure Iglesia Messina MD Work Phone: [facility] [place] Comment on above: missed appointment Start: 11-07-2021 End: 11-07-2021 Patient encounter procedure [facility] Start: 09-11-2021 Telephone encounter Iglesia navas MD Work Phone: Internal [facility] [place] Comment on above: Medication Request Start: 08-28-2021 ambulatory Iglesia lange MD Work Phone: Internal [facility] [place] Comment on above: prescription Start: 09-02-2020 End: 09-02-2020 Subsequent hospital visit by physician [facility] Work Phone: Radiology Comment on above: Foot pain, left [[id number]] Procedures Date Procedure Procedure Detail Performing Clinician Start: 10-26-[address] Iglesia Messina MD Work Phone: Start: 09-19-2024 Urnls dip stick/tabl et rgnt auto w/o microscopy [facility] MORTGAGE ADVISOR.SALES EXPERT Work Phone: Start: 09-01-2024 Urnls dip stick/tabl et rgnt auto w/o microscopy Ebony Hong MORTGAGE ADVISOR.SALES EXPERT Work Phone: Start: 08-27-2024 Urnls dip stick/tabl [...] MD Work Phone: Start: 06-11-2022 Colonoscopy Dia Garcia PA-C Work Phone: Start: 03-30-2022 End: 03-30-2022 Mammography Tory Morales MORTGAGE ADVISOR.CN P Work Phone: Start: 03-10-2021 Mammography Iglesia vasquez MD Work Phone: Start: 11-04-2020 Adult depression scr eening assessment Iglesia Messina MD Work Phone: Start: 09-02-2020 Radex foot complete minimum 3 views Miracle Elizondo APRN.CNP Work Phone: Start: 09-07-2011 Colonoscopy Iglesia vasquez MD Work Phone: Plan of Treatment Date Care Activity Detail Author Start: 06-11-2032 Colonoscopy COLONOSCOPY [facility] Start: 06-11-2032 COLORECTAL CANCER SCREENING COLORECTAL CANCER SCREENING [facility] Start: 06-11-2032 Screening for malign ant neoplasm of colon [facility] Start: 07-20-2028 Urine microalbumin profile [facility] Start: 11-06-2025 Glaucoma screening Dilated Retinal E xam [facility] Start: 09-19-2025 Annual PCP Team Circus Performer kate Disease Visit Annual PCP Team Chronic Disease Visit [facility] Start: 07-25-2025 End: 07-25-2025 Patient encounter procedure 07/25/2025 9:00 AM EDT Office Visit [facility] [address] [place], [place] [id number] Iglesia Messina MD [address] [place], [place] [id number] 6 month f/up [facility] [place] Comment on above: 6 month f/up Start: 07-24-2025 Annual PCP Team Circus Performer kate Disease Visit Annual PCP Team Chronic Disease Visit [facility] Start: 07-24-2025 BP Controlled (<130/80) BP Controlle d (<130/80) [facility] Start: 07-24-2025 RSV Vaccine (1 - Ris k 60-74 years 1-dose series) RSV Vaccine (1 - Risk 60-74 years 1-dose series) [facility] Comment on above: Postponed from 06/20 (Declined at this time) Start: 07-14-2025 Hepatitis B surface antibody level LDL Cholesterol [facility] Start: 04-03-2025 Screening for malign ant neoplasm of breast Mammogram Screening [facility] Start: 01-26-2025 End: 01-26-2025 Patient encounter procedure 01/26/2025 8:40 AM EDT Office Visit Internal [facility] [address] [place] [address] Iglesia Messina MD [address] [place] [address] 6 month follow up [facility] Comment on above: 6 month follow up Start: 01-18-2025 Annual PCP Team Circus Performer kate Disease Visit Annual PCP Team Chronic Disease Visit [facility] Start: 01-18-2025 Anxiety Screening Anxiety Screening [facility] Start: 01-18-2025 BP Controlled (<130/80) BP Controlle d (<130/80) [facility] Start: 01-18-2025 Depression Screening Depression Scre ening [facility] Start: 01-18-2025 Diabetic foot examination Diabetic F oot Exam [facility] Start: 01-18-2025 Hepatitis B screening Urine Albumin:Creatinine Ratio [facility] Start: 01-14-2025 Hemoglobin A1c measurement HbA1C [facility] Start: 01-13-2025 Hepatitis B surface antibody level LDL Cholesterol [facility] Start: 12-24-2024 End: 03-25-2025 25-hydroxyvitamin D3 [Mass/volume] in Serum or Plasma VITAMIN D 25 HYDROXY Lab Routine Controlled type 2 diabetes mellitus without complication, with long-term current use of insulin (HCC) Essential hypertension Vitamin D deficiency Expected: 12/24/2024 (Approximate), Expires: 03/25/2025 [facility] Comment on above: Expected: 12/24/2024 (Approximate), Expires: 03/25/2025 Start: 12-24-2024 End: 03-25-2025 CBC panel - Blood by Automated count COMPLETE BLOOD COUNT Lab Routine Controlled type 2 diabetes mellitus without complication, with long-term current use of insulin (HCC) Essential hypertension Expected: 12/24/2024 (Approximate), Expires: 03/25/2025 [facility] Comment on above: Expected: 12/24/2024 (Approximate), Expires: 03/25/2025 Start: 12-24-2024 End: 03-25-2025 Comprehensive metabolic 2000 panel - Serum or Plasma COMPREHENSIVE METABOLIC PANEL Lab Routine Controlled type 2 diabetes mellitus without complication, with long-term current use of insulin (HCC) Essential hypertension Expected: 12/24/2024 (Approximate), Expires: 03/25/2025 [facility] Work Phone: Comment on above: Expected: 12/24/2024 (Approximate), Expires: 03/25/2025 Start: 12-24-2024 End: 03-25-2025 Hemoglobin A1c in Blood HEMOGLOBIN A1C Lab Routine Controlled type 2 diabetes mellitus without complication, with long-term current use of insulin (HCC) Expected: 12/24/2024 (Approximate), Expires: 03/25/2025 [facility] Comment on above: Expected: 12/24/2024 (Approximate), Expires: 03/25/2025 Start: 12-24-2024 End: 03-25-2025 Lipid 1996 panel - Serum or Plasma LIPID PANEL, FASTING Lab Routine Controlled type 2 diabetes mellitus without complication, with long-term current use of insulin (HCC) Mixed hyperlipidemia Essential hypertension Expected: 12/24/2024 (Approximate), Expires: 03/25/2025 [facility] Comment on above: Expected: 12/24/2024 (Approximate), Expires: 03/25/2025 Start: 12-24-2024 End: 03-25-2025 Magnesium [Mass/volume] in Serum or Plasma MAGNESIUM Lab Routine Controlled type 2 diabetes mellitus without complication, with long-term current use of insulin (HCC) Essential hypertension Expected: 12/24/2024 (Approximate), Expires: 03/25/2025 [facility] Comment on above: Expected: 12/24/2024 (Approximate), Expires: 03/25/2025 Start: 12-18-2024 Influenza vaccination Influenza Vacc ine (#1) [facility] Start: 10-19-2024 End: 01-18-2025 Urinalysis complete panel - Urine URINALYSIS, WITH MICROSCOPIC Lab Routine Microscopic hematuria Expected: 10/19/2024 (Approximate), Expires: 01/18/2025 [facility] Work Phone: Comment on above: Expected: 10/19/2024 (Approximate), Expires: 01/18/2025 Start: 10-19-2024 End: 10-19-2024 ambulatory 10/19/2024 8:00 AM EDT Results Only [facility] [address] [place] [address] [facility] Start: 09-15-2024 End: 09-15-2024 Patient encounter procedure 09/15/2024 8:00 AM EDT Office Visit Cardiology [address] [place] [address] SOB (shortness of breath) [R06.02]; PND (paroxysmal nocturnal dyspnea) [R06.00]; Essential hypertension [I10] Cardiology Comment on above: SOB (shortness of br eath) [R06.02]; PND (paroxysmal nocturnal dyspnea) [R06.00]; Essential hypertension [I10] [facility] Start: 08-22-2024 Covid-19 Vaccine () Covid-19 Vaccine () [facility] Start: 07-28-2024 Glaucoma screening Dilated Retinal E xam [facility] Start: 07-24-2024 End: 07-24-2024 Patient encounter procedure 07/24/2024 9:00 AM EDT Office Visit Internal Medicine [facility] [address] [place] [address] Iglesia Messina MD [address] [place] [address] 6 mo follow up [facility] Comment on above: 6 mo follow up Start: 07-19-2024 Annual PCP Team Circus Performer kate Disease Visit Annual PCP Team Chronic Disease Visit [facility] Start: 07-19-2024 BP Controlled (<130/80) BP Controlle d (<130/80) [facility] Start: 07-13-2024 Hemoglobin A1c measurement HbA1C [facility] Start: 07-08-2024 Hepatitis B surface antibody level LDL Cholesterol [facility] Start: 06-18-2024 End: 09-17-2024 25-hydroxyvitamin D3 [Mass/volume] in Serum or Plasma VITAMIN D 25 HYDROXY Lab Routine Vitamin D deficiency Encounter for long-term current use of medication Expected: 06/18/2024 (Approximate), Expires: 09/17/2024 [facility] Comment on above: Expected: 06/18/2024 (Approximate), Expires: 09/17/2024 Start: 06-18-2024 End: 09-17-2024 CBC panel - Blood by Automated count COMPLETE BLOOD COUNT Lab Routine Controlled type 2 diabetes mellitus without complication, with long-term current use of insulin (HCC) Essential hypertension Encounter for long-term current use of medication Expected: 06/18/2024 (Approximate), Expires: 09/17/2024 [facility] Comment on above: Expected: 06/18/2024 (Approximate), Expires: 09/17/2024 Start: 06-18-2024 End: 09-17-2024 Comprehensive metabolic 2000 panel - Serum or Plasma COMPREHENSIVE METABOLIC PANEL Lab Routine Controlled type 2 diabetes mellitus without complication, with long-term current use of insulin (HCC) Essential hypertension Encounter for long-term current use of medication Expected: 06/18/2024 (Approximate), Expires: 09/17/2024 [facility] Comment on above: Expected: 06/18/2024 (Approximate), Expires: 09/17/2024 Start: 06-18-2024 End: 09-17-2024 Hemoglobin A1c in Blood HEMOGLOBIN A1C Lab Routine Controlled type 2 diabetes mellitus without complication, with long-term current use of insulin (HCC) Encounter for long-term current use of medication Expected: 06/18/2024 (Approximate), Expires: 09/17/2024 [facility] Comment on above: Expected: 06/18/2024 (Approximate), Expires: 09/17/2024 Start: 06-18-2024 End: 09-17-2024 Lipid 1996 panel - Serum or Plasma LIPID PANEL BASIC Lab Routine Controlled type 2 diabetes mellitus without complication, with long-term current use of insulin (HCC) Essential hypertension Mixed hyperlipidemia Encounter for long-term current use of medication Expected: 06/18/2024 (Approximate), Expires: 09/17/2024 [facility] Comment on above: Expected: 06/18/2024 (Approximate), Expires: 09/17/2024 Start: 06-18-2024 End: 09-17-2024 Magnesium [Mass/volume] in Serum or Plasma MAGNESIUM Lab Routine Encounter for long-term current use of medication Expected: 06/18/2024 (Approximate), Expires: 09/17/2024 [facility] Comment on above: Expected: 06/18/2024 (Approximate), Expires: 09/17/2024 Start: 04-19-2024 Advance Directive Discussion Advance Directive Discussion [facility] Start: 04-19-2024 Medicare Advantage A nnual Wellness Visit Medicare Advantage Annual Wellness Visit [facility] Start: 04-03-2024 End: 04-03-2024 Patient encounter procedure 04/03/2024 7:50 AM EST Appointment Mammogram [address] [place] [address] Mammogram Start: 03-31-2024 Screening for malign ant neoplasm of breast Mammogram Screening [facility] Start: 03-07-2024 End: 03-07-2024 ambulatory 03/07/2024 9:00 AM EST OT/PT/Speech Visit [facility] [address] [place] [address] Phuong Samayoa, PT Benign paroxysmal positional vertigo, unspecified laterality [H81.10 (ICD-10-CM)] [facility] Comment on above: Benign paroxysmal po sitional vertigo, unspecified laterality [H81.10 (ICD-10-CM)] Start: 02-22-2024 End: 02-22-2024 ambulatory 02/22/2024 11:30 AM EST OT/PT/Speech Visit [facility] [address] [place] [address] Efren Macias, PT [address] [address] H81.10 (ICD-10-CM) - Benign paroxysmal positional vertigo, unspecified laterality [facility] Comment on above: H81.10 (ICD-10-CM) - Benign paroxysmal positional vertigo, unspecified laterality Start: 02-15-2024 End: 02-15-2024 ambulatory 02/15/2024 1:15 PM EDT OT/PT/Speech Visit [facility] [address] [place] [address] Efren Macias, PT [address] [place], [place] [id number] [facility]: Vertigo exercises Start: 02-01-2024 Covid-19 Vaccine () Covid-19 Vaccine () [facility] Comment on above: Postponed from 12/18 (Declined at this time) Start: 02-01-2024 Influenza vaccination Influenza Vacc ine (#1) [facility] Comment on above: Postponed from 12/18 (Declined at this time) Start: 01-19-2024 End: 01-19-2024 Patient encounter procedure 01/19/2024 8:40 AM EDT Office Visit Internal Medicine [facility] [address] [place] [address] Iglesia Messina MD [address] [place] [address] 6 mo follow up [facility] Comment on above: 6 mo follow up Start: 01-09-2024 Hemoglobin A1c measurement HbA1C [facility] Start: 01-05-2024 Annual PCP Team Circus Performer kate Disease Visit Annual PCP Team Chronic Disease Visit [facility] Start: 01-01-2024 Hepatitis B screening Urine Albumin:Creatinine Ratio [facility] Start: 01-01-2024 Hepatitis B surface antibody level LDL Cholesterol [facility] Start: 12-20-2023 End: 03-20-2024 25-hydroxyvitamin D3 [Mass/volume] in Serum or Plasma VITAMIN D 25 HYDROXY Lab Routine Encounter for long-term current use of medication Vitamin D deficiency Expected: 12/20/2023 (Approximate), Expires: 03/20/2024 [facility] Comment on above: Expected: 12/20/2023 (Approximate), Expires: 03/20/2024 Start: 12-20-2023 End: 03-20-2024 CBC panel - Blood by Automated count CBC Lab Routine Encounter for long-term current use of medication Expected: 12/20/2023 (Approximate), Expires: 03/20/2024 [facility] Comment on above: Expected: 12/20/2023 (Approximate), Expires: 03/20/2024 Start: 12-20-2023 End: 03-20-2024 Comprehensive metabolic 2000 panel - Serum or Plasma COMP METABOLIC PANEL Lab Routine Controlled type 2 diabetes mellitus without complication, with long-term current use of insulin (HCC) Encounter for long-term current use of medication Expected: 12/20/2023 (Approximate), Expires: 03/20/2024 [facility] Work Phone: Comment on above: Expected: 12/20/2023 (Approximate), Expires: 03/20/2024 Start: 12-20-2023 End: 03-20-2024 Hemoglobin A1c in Blood HGB A1C Lab Routine Controlled type 2 diabetes mellitus without complication, with long-term current use of insulin (HCC) Encounter for long-term current use of medication Expected: 12/20/2023 (Approximate), Expires: 03/20/2024 [facility] Comment on above: Expected: 12/20/2023 (Approximate), Expires: 03/20/2024 Start: 12-20-2023 End: 03-20-2024 Lipid 1996 panel - Serum or Plasma LIPID PANEL BASIC Lab Routine Mixed hyperlipidemia Encounter for long-term current use of medication Expected: 12/20/2023 (Approximate), Expires: 03/20/2024 [facility] Comment on above: Expected: 12/20/2023 (Approximate), Expires: 03/20/2024 Start: 12-20-2023 End: 03-20-2024 Magnesium [Mass/volume] in Serum or Plasma MAGNESIUM BLD Lab Routine Encounter for long-term current use of medication Expected: 12/20/2023 (Approximate), Expires: 03/20/2024 [facility] Comment on above: Expected: 12/20/2023 (Approximate), Expires: 03/20/2024 Start: 12-19-2023 Covid-19 Vaccine ( season) Covid-19 Vaccine () [facility] Start: 12-19-2023 Influenza vaccination Influenza Vacc ine (#1) [facility] Start: 08-26-2023 ANNUAL PCP TEAM BRIQUETTE MOLDER KATE DISEASE VISIT ANNUAL PCP TEAM CHRONIC DISEASE VISIT [facility] Start: 08-26-2023 BP CONTROLLED (<130/80) BP CONTROLLE D (<130/80) [facility] Start: 08-12-2023 ANNUAL PCP TEAM BRIQUETTE MOLDER KATE DISEASE VISIT ANNUAL PCP TEAM CHRONIC DISEASE VISIT [facility] Start: 07-15-2023 Covid-19 Vaccine () Covid-19 Vaccine () [facility] Start: 07-05-2023 End: 09-04-2023 25-hydroxyvitamin D3 [Mass/volume] in Serum or Plasma VITAMIN D 25 HYDROXY Lab Routine Vitamin D deficiency Expected: 07/05/2023 (Approximate), Expires: 09/04/2023 [facility] Work Phone: Comment on above: Expected: 07/05/2023 (Approximate), Expires: 09/04/2023 Start: 07-05-2023 End: 09-04-2023 CBC panel - Blood by Automated count CBC Lab Routine Essential hypertension Expected: 07/05/2023 (Approximate), Expires: 09/04/2023 [facility] Work Phone: Comment on above: Expected: 07/05/2023 (Approximate), Expires: 09/04/2023 Start: 07-05-2023 End: 09-04-2023 Comprehensive metabolic 2000 panel - Serum or Plasma COMP METABOLIC PANEL Lab Routine Controlled type 2 diabetes mellitus without complication, with long-term current use of insulin (HCC) Essential hypertension Expected: 07/05/2023 (Approximate), Expires: 09/04/2023 [facility] Work Phone: Comment on above: Expected: 07/05/2023 (Approximate), Expires: 09/04/2023 Start: 07-05-2023 End: 09-04-2023 Hemoglobin A1c in Blood HGB A1C Lab Routine Controlled type 2 diabetes mellitus without complication, with long-term current use of insulin (HCC) Expected: 07/05/2023 (Approximate), Expires: 09/04/2023 [facility] Work Phone: Comment on above: Expected: 07/05/2023 (Approximate), Expires: 09/04/2023 Start: 07-05-2023 End: 09-04-2023 Lipid 1996 panel - Serum or Plasma LIPID PANEL BASIC Lab Routine Mixed hyperlipidemia Expected: 07/05/2023 (Approximate), Expires: 09/04/2023 [facility] Work Phone: Comment on above: Expected: 07/05/2023 (Approximate), Expires: 09/04/2023 Start: 07-01-2023 Hemoglobin A1c measurement HbA1C [facility] Start: 07-01-2023 Hemoglobin A1c/Hemoglobin.total in Blood HbA1C [facility] Start: 05-26-2023 ANNUAL PCP TEAM BRIQUETTE MOLDER KATE DISEASE VISIT ANNUAL PCP TEAM CHRONIC DISEASE VISIT [facility] Start: 05-26-2023 BP CONTROLLED (<130/80) BP CONTROLLE D (<130/80) [facility] Start: 05-26-2023 SHINGRIX VACCINE (2 of 3) QURESHI GRIX VACCINE (2 of 3) [facility] Comment on above: Postponed from 08/19 (Declined at this time) Start: 05-19-2023 Hepatitis B surface antibody level LDL CHOLESTEROL [facility] Start: 04-19-2023 Advance Directive Discussion Advance Directive Discussion [facility] Start: 04-19-2023 Behavioral Health Screening Behavioral Health Screening [facility] Start: 04-19-2023 Depression Assessment Depression Ass essment [facility] Start: 04-17-2023 Glaucoma screening Dilated Retinal E xam [facility] Start: 04-17-2023 Hepatitis C antibody , confirmatory test DILATED RETINAL EXAM [facility] Start: 03-30-2023 Mammography [facility] Start: 12-18-2022 Covid-19 Vaccine ( season) Covid-19 Vaccine ( season) [facility] Start: 12-18-2022 Influenza vaccination Influenza Vacc ine (#1) [facility] Start: 11-23-2022 End: 01-23-2023 25-hydroxyvitamin D3 [Mass/volume] in Serum or Plasma VITAMIN D 25 HYDROXY Lab Routine Vitamin D deficiency Expected: 11/23/2022 (Approximate), Expires: 01/23/2023 [facility] Work Phone: Comment on above: Expected: 11/23/2022 (Approximate), Expires: 01/23/2023 Start: 11-23-2022 End: 01-23-2023 ALBUMIN/CREAT RATIO RND UR ALBUMIN/CREAT RATIO RND UR Lab Routine Controlled type 2 diabetes mellitus without complication, with long-term current use of insulin (HCC) Expected: 11/23/2022 (Approximate), Expires: 01/23/2023 [facility] Work Phone: Comment on above: Expected: 11/23/2022 (Approximate), Expires: 01/23/2023 Start: 11-23-2022 End: 01-23-2023 CBC panel - Blood by Automated count CBC Lab Routine Essential hypertension Expected: 11/23/2022 (Approximate), Expires: 01/23/2023 [facility] Work Phone: Comment on above: Expected: 11/23/2022 (Approximate), Expires: 01/23/2023 Start: 11-23-2022 End: 01-23-2023 Comprehensive metabolic 2000 panel - Serum or Plasma COMP METABOLIC PANEL Lab Routine Controlled type 2 diabetes mellitus without complication, with long-term current use of insulin (HCC) Essential hypertension Expected: 11/23/2022 (Approximate), Expires: 01/23/2023 [facility] Work Phone: Comment on above: Expected: 11/23/2022 (Approximate), Expires: 01/23/2023 Start: 11-23-2022 End: 01-23-2023 Hemoglobin A1c in Blood HGB A1C Lab Routine Controlled type 2 diabetes mellitus without complication, with long-term current use of insulin (HCC) Expected: 11/23/2022 (Approximate), Expires: 01/23/2023 [facility] Work Phone: Comment on above: Expected: 11/23/2022 (Approximate), Expires: 01/23/2023 Start: 11-23-2022 End: 01-23-2023 Lipid 1996 panel - Serum or Plasma LIPID PANEL BASIC Lab Routine Mixed hyperlipidemia Expected: 11/23/2022 (Approximate), Expires: 01/23/2023 [facility] Work Phone: Comment on above: Expected: 11/23/2022 (Approximate), Expires: 01/23/2023 Start: 11-16-2022 Hemoglobin A1c/Hemoglobin.total in Blood HBA1C [facility] Start: 07-01-2022 Covid-19 Vaccine (5 - Pfizer series) Covid-19 Vaccine (5 - Pfizer series) [facility] Start: 05-26-2022 3 comp foot exam completed DIABETIC FOOT EXAM [facility] Start: 05-26-2022 ANNUAL PCP TEAM BRIQUETTE MOLDER KATE DISEASE VISIT ANNUAL PCP TEAM CHRONIC DISEASE VISIT [facility] Start: 05-26-2022 BP CONTROLLED (<130/80) BP CONTROLLE D (<130/80) [facility] Start: 05-26-2022 Diabetic foot examination Diabetic F oot Exam [facility] Start: 05-26-2022 Hepatitis B screening URINE ALBUMIN:CREATININE RATIO [facility] Start: 05-26-2022 Hepatitis B surface antibody level LDL CHOLESTEROL [facility] Start: 05-26-2022 PNEUMOCOCCAL: 65+ (3 - PCV) PNEUMOCOCCAL: 65+ (3 - PCV) [facility] Start: 05-19-2022 Procedure [facility] Start: 03-10-2022 Mammography MAMMOGRAM [facility] Start: 12-18-2021 Influenza vaccination INFLUENZA (#1) [facility] Start: 11-23-2021 Hemoglobin A1c/Hemoglobin.total in Blood HBA1C [facility] Start: 11-06-2021 PNEUMOCOCCAL: 65+ (1 - PCV) PNEUMOCOCCAL: 65+ (1 - PCV) [facility] Comment on above: Postponed from 06/20 (Declined at this time) Start: 11-06-2021 SHINGRIX VACCINE (1 of 2) QURESHI GRIX VACCINE (1 of 2) [facility] Comment on above: Postponed from 08/19 (Declined at this time) Start: 11-06-2021 SHINGRIX VACCINE (2 of 3) QURESHI GRIX VACCINE (2 of 3) [facility] Comment on above: Postponed from 08/19 (Declined at this time) Start: 11-04-2021 Adult depression scr eening assessment DEPRESSION SCREENING [facility] Start: 09-06-2021 Colonoscopy COLONOSCOPY [facility] Start: 09-06-2021 COLORECTAL CANCER SCREENING COLORECTAL CANCER SCREENING [facility] Start: 08-30-2021 Hepatitis C antibody , confirmatory test DILATED RETINAL EXAM [facility] Start: 06-26-2021 COVID-19 VACCINE (4 - Booster for Pfizer series) COVID-19 VACCINE (4 - Booster for Pfizer series) [facility] Start: 05-23-2021 COVID-19 VACCINE (4 - Booster for Pfizer series) COVID-19 VACCINE (4 - Booster for Pfizer series) [facility] Start: 04-19-2021 ADVANCE DIRECTIVE DISCUSSION ADVANCE DIRECTIVE DISCUSSION [facility] Start: 04-19-2021 DEPRESSION ASSESSMENT DEPRESSION ASS ESSMENT [facility] Start: 02-25-2021 BP CONTROLLED (<130/80) BP CONTROLLE D (<130/80) [facility] Start: 08-19-2016 SHINGRIX VACCINE (1 of 2) QURESHI GRIX VACCINE (1 of 2) [facility] Start: 08-19-2016 Shingrix Vaccine (2 of 3) Qureshi grix Vaccine (2 of 3) [facility] Start: 2014 Hepatitis B Vaccine (1 of 3 - Risk 3-dose series) Hepatitis B Vaccine (1 of 3 - Risk 3-dose series) [facility] Start: 2014 RSV Vaccine (1 - 1-d ose 60+ series) RSV Vaccine (1 - 1-dose 60+ series) [facility] Start: 2014 RSV Vaccine (1 - Ris k 60-74 years 1-dose series) RSV Vaccine (1 - Risk 60-74 years 1-dose series) [facility] Start: 06-21-1999 COLOGUARD (FIT-DNA) COLOGUARD (FIT-D NA) [facility] Start: 06-21-[address] COLONOGRAPHY [facility] Start: 06-21-1999 FECAL OCCULT BLOOD FECAL OCCULT BLOO D [facility] Start: 06-21-1999 Screening for malign ant neoplasm of colon [facility] Start: 06-21-1999 SIGMOIDOSCOPY SIGMOIDOSCOPY Sha[facility] Start: 1972 Anxiety Screening Anxiety Screening [facility] Start: 1972 Depression Screening Depression Scre ening [facility] Bacteria identified in Urine by Culture BACTERIAL CULTURE, URINE Microbiology Routine Urinary tract infection with hematuria, site unspecified 09/01/2024 12:47 PM EDT [facility] Bacteria identified in Urine by Culture BACTERIAL CULTURE, URINE Microbiology Routine Urinary tract infection with hematuria, site unspecified 09/19/2024 9:43 AM EDT [facility] End: 05-29-2023 COLONOSCOPY DIAGNOSTIC COLONOSCOPY DIAGNOSTIC Endoscopy Routine Colon cancer screening 1 Occurrences starting 05/29/2022 until 05/29/2023 [facility] Work Phone: Comment on above: 1 Occurrences starti ng 05/29/2022 until 05/29/2023 End: 09-01-2025 Echocardiography ECHO Cardiology Routine SOB (shortness of breath) PND (paroxysmal nocturnal dyspnea) Essential hypertension 1 Occurrences starting 09/01/2024 until 09/01/2025 [facility] Work Phone: Comment on above: 1 Occurrences starti ng 09/01/2024 until 09/01/2025 Glucose [Mass/volume ] in Serum or Plasma GLUCOSE, BLOOD (POC) Lab Routine Dizziness Ordered: 08/10/2022 [facility] Work Phone: Comment on above: Ordered: 08/10/2022 End: 04-26-2023 DEDE SCREENING DEDE SCREENING Radiology Routine Encounter for screening mammogram for breast cancer 1 Occurrences starting 03/27/2022 until 04/26/2023 [facility] Work Phone: Comment on above: 1 Occurrences starti ng 03/27/2022 until 04/26/2023 End: 04-06-2024 DEDE SCREENING DEDE SCREENING Radiology Routine Screening mammogram for breast cancer 1 Occurrences starting 03/15/2023 until 04/06/2024 [facility] Work Phone: Comment on above: 1 Occurrences starti ng 03/15/2023 until 04/06/2024 End: 02-17-2025 MG Breast Screening DEDE SCREENING Radiology Routine Encounter for screening mammogram for breast cancer 1 Occurrences starting 01/19/2024 until 02/17/2025 [facility] Work Phone: Comment on above: 1 Occurrences starti ng 01/19/2024 until 02/17/2025 MG Breast Screening DEDE SCREENIN G Radiology Routine Encounter for screening mammogram for breast cancer 04/03/2024 8:23 AM EST [facility] Work Phone: Patient Education [facility] Work Phone: Patient referral [facility] Work Phone: [facility] Immunizations Immunization Date Immunization Notes Care Provider Fa cilierendira 02-23-2024 influenza virus vacc ine, unspecified formulation Ebony Hong MORTGAGE ADVISOR.SALES EXPERT Work Phone: [facility] 03-16-2023 influenza virus vacc ine, unspecified formulation Iglesia Messina MD Work Phone: [facility] 05-26-2022 pneumococcal (PCV20) vaccine, 20 valent (PREVNAR 20) Iglesia Messina MD Work Phone: [facility] 05-26-2022 pneumococcal Conjuga te, unspecified formulation Iglesia Messina MD Work Phone: [facility] Work Phone: 03-03-2022 influenza (aIIV4) vaccine, age 65+ yr, quadrivalent, PF (FLUAD QUADRIVALENT) Iglesia Messina MD Work Phone: [facility] 03-03-2022 influenza virus vacc ine, unspecified formulation Iglesia Messina MD Work Phone: [facility] 05-26-2021 pneumococcal polysaccharide vaccine, 23 valent Iglesia Messina MD Work Phone: [facility] 03-28-2021 COVID-19 original vaccine, age 12+ yr, monovalent (Untangle-BIONTCentice - PURPLE TOP) Tory Morales MORTGAGE ADVISOR.RIB BENDER Work Phone: [facility] Work Phone: 02-17-2021 influenza, high dose seasonal, preservative-free Iglesia Messina MD Work Phone: [facility] 02-17-2021 influenza, high-dose , quadrivalent vaccine (FLUZONE HIGH DOSE QUADRIVALENT) Iglesia Messina MD Work Phone: [facility] 07-04-2020 COVID-19 vaccine, ag e 12+ yr (PFIZER-BIONTECH - PURPLE TOP) Iglesia Messina MD Work Phone: [facility] 06-13-2020 COVID-19 vaccine, ag e 12+ yr (PFIZER-BIONTECH - PURPLE TOP) Iglesia Messina MD Work Phone: [facility] 02-26-2020 influenza, high-dose , quadrivalent vaccine (FLUZONE HIGH DOSE QUADRIVALENT) Iglesia Messina MD Work Phone: [facility] Work Phone: 02-26-2020 zoster vaccine, recombinant, adjuvanted, (SHINGRIX, PF,) 50 mcg/0.5 mL injection Xr Bety Work Phone: [facility] 02-27-2019 influenza, injectabl e, quadrivalent, contains preservative Iglesia Messina MD Work Phone: [facility] Work Phone: 07-20-2018 tetanus toxoid, redu aziza diphtheria toxoid, and acellular pertussis vaccine, adsorbed Iglesia Messina MD Work Phone: [facility] 02-19-2018 influenza, injectabl e, quadrivalent, contains preservative Iglesia Messina MD Work Phone: [facility] 02-20-2017 influenza, high dose seasonal, preservative-free Iglesia Messina MD Work Phone: [facility] Work Phone: 06-24-2016 zoster vaccine, live Iglesia severino MD Work Phone: [facility] 01-17-2016 influenza, injectabl e, quadrivalent, contains preservative Iglesia Messina MD Work Phone: [facility] 03-04-2015 influenza, injectabl e, quadrivalent, contains preservative Iglesia Messina MD Work Phone: [facility] 02-12-2014 influenza, seasonal, injectable Iglesia Messina MD Work Phone: [facility] 02-03-2013 influenza virus vacc ine, unspecified formulation Iglesia Messina MD Work Phone: [facility] 01-11-2012 influenza virus vacc ine, unspecified formulation Iglesia Messina MD Work Phone: [facility] Work Phone: 01-11-2012 pneumococcal polysaccharide vaccine, 23 valent Iglesia Messina MD Work Phone: [facility] Work Phone: 01-11-2012 tetanus toxoid, redu aziza diphtheria toxoid, and acellular pertussis vaccine, adsorbed Iglesia Messina MD Work Phone: [facility] Work Phone: 03-09-2011 influenza virus vacc ine, unspecified formulation Iglesia Messina MD Work Phone: [facility] 01-28-2010 influenza virus vacc ine, unspecified formulation Iglesia Messina MD Work Phone: [facility] Payers Date Payer Category Payer Self-pay [id number] 2021 Medicare [employer] [place] [id number] 2021-Present [phone] [address] [place] [address] [facility] [id number] 2021 [place] [id number] 2021 Medicare [id number] 2020 Unknown [employer] E PPO [id number] 2020-2021 [address] [place] [address] PPO [id number] 2019 Medicare [id number] 2016 Unknown [id number] Medicare [id number] Unknown [id number] Unknown [id number] Unknown [id number] Unknown [id number] Unknown [id number] Social History Date Type Detail Facility Start: 01-22-2014 End: 05-29-2022 Tobacco smoking status NHIS Never smoked tobacco [facility] Work Phone: Start: 11-06-2020 End: 09-19-2024 Alcohol intake Current non-drinker of alcohol (finding) [facility] Start: 11-04-2020 End: 05-23-2022 History SDOH Alcohol Frequency 2 [facility] Start: 11-04-2020 End: 05-23-2022 History SDOH Alcohol Std Drinks 1 [facility] Start: 11-04-2020 End: 05-23-2022 History SDOH Social Connections Phone 3 [facility] Start: 11-04-2020 History SDOH Physica l Activity DPW 0 [facility] Start: 11-04-2020 History SDOH Financial 5 [facility] Start: 09-19-2019 Education 17 [facility] Start: 1955 Sex Assigned At Not on file [facility] Start: 12-04-2020 End: 12-04-2020 Tobacco smoking status NHIS Unknown if ever smoked [facility] Start: 1955 Sex Assigned At Female W [facility] Start: 01-22-2014 End: 05-29-2022 Tobacco use and exposure Smokeless tobacco non-user [facility] Start: 05-23-2022 History SDOH Social Connections Get Together 98 [facility] Start: 05-23-2022 End: 02-15-2024 [facility] Start: 05-23-2022 End: 02-15-2024 Social connection and isolation panel [facility] How often do you get together with friends or relatives? Patient refused [facility] Do you belong to any clubs or organizations such as holiness groups, unions, fraternal or athletic groups, or school groups? No [facility] Are you now , , , , never or living with a partner? [facility] How often to you hav e a drink containing alcohol? Monthly or less [facility] How many standard dr inks containing alcohol do you have on a typical day? 1 or 2 [facility] How often do you hav e 6 or more drinks on 1 occasion? Never [facility] Do you feel stress - tense, restless, nervous, or anxious, or unable to sleep at night because your mind is troubled all the time - these days [OSQ] Not at all [facility] (I/We) worried sandra er (my/our) food would run out before (I/we) got money to buy more. Never true [facility] Start: 08-03-2020 End: 09-02-2020 Exposure to SARS-CoV-2 (event) Not sure [facility] Medical Equipment Procedure Code Equipment Code Equipment Original Text Equipment Identifier Dates [id number], [id number], [id number], [id number], [id number], [id number], [id number], [id number], [id number], [id number], [id number] Start: 09-01-2018 End: 07-24-2024 Comment on above: [...] 10/17/2014 10:26 AM Saba Erazo MA No [facility] 10-17-2014 Are you blind, or do you have serious difficulty seeing, even when wearing glasses No 10/17/2014 10:26 AM Saba Erazo MA No [facility] 10-17-2014 Do you have serious difficulty walking or climbing stairs No 10/17/2014 10:26 AM Saba Erazo MA No [facility] 10-17-2014 Do you have difficul ty dressing or bathing No 10/17/2014 10:26 AM Saba Erazo MA No [facility] 10-17-2014 Because of a physica l, mental, or emotional condition, do you have difficulty doing errands alone such as visiting a physician's office or shopping No 10/17/2014 10:26 AM Saba Erazo MA [facility] Mental Status Date Assessment Result Facility 08-27-2024 Cognitive function Level Of Cons ciousness Awake;Alert;Appropriate;Fol lows Commands [facility] Work Phone: 10-17-2014 Because of a physica l, mental, or emotional condition, do you have serious difficulty concentrating, remembering, or making decisions No 10/17/2014 10:26 AM Saba Erazo MA No [facility] Clinical Notes 01-22-2014 to 10-26-2024 Result Encounter Note - Ebony Hong APRN.CNS - 10/24/2024 12:07 PM EDTResult Encounter Note - Ebony Hong APRN.CNS - 10/24/2024 12:07 PM EDTPatient InstructionsPatient Instructions Note Date & Type Note Facility 10-26-2024 Radiology Diagnostic study note [facility] Imaging Services [address] [place], [place] [address] Abdomen Limited MR#: [id number] Acct: [id number] Name: RACHEL HOLLOWAY Rep #: [id number] F 69 From: Josefa Pringle MD PCP: Dr. Iglesia Messina MD Status: RE G CLI Study:Abdomen Limited Date of Exam: 10/17 Exam# [id number] Ordering Dr: Nidia Albright MD EXAM: US Abdomen Limited, Right Upper Quadrant CLINICAL INDICATION: ELEVATED LIVER ENZYMES TECHNIQUE: Real-time ultrasound of the right upper quadrant with image documentation. COMPARISON: No relevant prior studies available. FINDINGS: LIVER: Liver measures up to 18.1 cm. Fatty infiltration of the liver. No intrahepatic bile duct dilation. GALLBLADDER: Negative Steele's sign was reported by the wall to wall carpet installer. No gallstones. COMMON BILE DUCT: Unremarkable as visualized. No stones. No dilation. Commonbile duct measures 0.4 cm in diameter. PANCREAS: Unremarkable as visualized. RIGHT KIDNEY: Unremarkable. No stones. No hydronephrosis. The right kidney measures 12.1 x 4.9 x 5.5 cm. US/Abdomen Limited IMPRESSION: Fatty infiltration of the liver. Reading [facility] CC: Dr. Iglesia Messina MD; Dr. Nidia Albright MD ~ Data Coder Operator: Signed [facility] 10-24-2024 Progress note Formatting of t his note might be different from the original. Acceptable findings on urinalysis. [facility] 10-24-2024 Miscellaneous Notes Acceptable findings on urinalysis. Normal onofre, microscopic hematuria. Recheck urinalysis in 4 to 6 weeks. Follow-up with urology if hematuria has not resolved documented in this encounter [facility] 09-21-2024 Progress note Formatting of t his note might be different from the original. Normal onofre, microscopic hematuria. Recheck urinalysis in 4 to 6 weeks. Follow-up with urology if hematuria has not resolved [facility] 09-19-2024 Telephone encounter Note OV today [facility] 09-19-2024 Miscellaneous Notes OV today Echocardiogram shows normal right and left ventricular size and function, no significant valvular abnormalities. No growth documented in this encounter [facility] 09-19-2024 Instructions Ebony Hong APRN.CNS - 09/19/2024 [...] and sneezing; if symptoms persist, add an evdt-tib-zkarhop oral antihistamine such as loratidine. - Continue using your inhaler for cough or wheezing as needed. - If you do not return to your usual daily bowel movements, take a mild lzsg-vtv-vyeinob laxative (for example, Miralax) to reestablish regularity. [...] do not improve. documented in this encounter [facility] 09-19-2024 History of Presen t illness Narrative Subjective Patient ID: Rachel is a 69 year old female who presents for No chief complaint on file.. HPI Rachel is a 69-year-old female with a history of diabetes and hypertension, [facility], presenting for evaluation of persistent UTI [...] fatigue and anorexia following recent illness. - [place] slightly better while on antibiotics but symptoms [...] rhinorrhea present. Rhinorrhea is clear. Mouth/Throat: Lips: [place]. Mouth: Mucous membranes are moist. Pharynx: Oropharynx [...] azelastine nasal spray. - Advised to use cvtw-ipw-flwjtor antihistamines as needed. 8. Iron deficiency anemia, [...] 4 - Moderate documented in this encounter [facility] 09-19-2024 Note HNO ID: [id number] Author: EBONY HONG APRN.ADRIANO Service: ? Author Type: Nurse Specialist Type: [...] fatigue and anorexia following recent illness. - [place] slightly better while on antibiotics but symptoms [...] rhinorrhea present. Rhinorrhea is clear. Mouth/Throat: Lips: [place]. Mouth: Mucous membranes are moist. Pharynx: Oropharynx [...] dehydration. - En (more content not included)... [facility] 09-18-2024 Progress note Formatting of t his note might be different from the original. Echocardiogram shows normal right and left ventricular size and function, no significant valvular abnormalities. [facility] 09-14-2024 Telephone encounter Note Patient has been [...] Please advise. Thank you. Parisa Bills LPN. [facility] 09-14-2024 Miscellaneous Notes Patient has been identified [...] Parisa Bills LPN. documented in this encounter [facility] 09-04-2024 Progress note Formatting of t his note might be different from the original. No growth [facility] 09-01-2024 History of Presen t illness Narrative [...] records show that she was seen at [facility] emergency department August 28, 2024 for general illness, noting weakness all over and nauseated. Also noted dizziness described as lightheadedness. History of vertigo that felt different. COVID testing completed and negative. Treated with Zofran and IV fluids. CBC and metabolic panel unremarkable. Urinalysis consistent with infection. No signs of sepsis or renal problem. She was treated with Keflex as an outpatient. Advised ihcr-khr-thcxzyw remedies for her body aches. She was [...] 4 - Moderate documented in this encounter [facility] 09-01-2024 Note HNO ID: [id number] Author: EBONY HONG APRN.CNS Service: ? Author Type: Nurse Specialist Type: Progress Notes Filed: 09/01/2024 12:47 Note Text: Subjective Patient ID: Rachel is a 69 year old female who presents for Hospital F/U. HPI Rachel is a 69-year-old female with a history of diabetes and hypertension, [facility], presenting for evaluation of persistent UTI [...] records show that she was seen at [facility] emergency department August 28, 2024 for general illness, noting weakness all over and nauseated. Also noted dizziness described as lightheadedness. History of vertigo that felt different. COVID testing completed and negative. Treated with Zofran and IV fluids. CBC and metabolic panel unremarkable. Urinalysis consistent with infection. No signs of sepsis or renal problem. She was treated with Keflex as an outpatient. Advised tjcg-tbc-okrkzit remedies for her body aches. She was [...] dyspnea noted, particul (more content not included)... [facility] 07-24-2024 Instructions Iglesia Messina MD - [...] in 6 months. documented in this encounter [facility] 07-24-2024 Note HNO ID: [id number] Author: IGLESIA MESSINA MD Service: ? Author Type: Physician Type: Progress Notes Filed: 07/24/2024 09:51 Note Text: This note was created using UCampusriter. Subjective Rachel Holloway is a 69 year [...] 205.5 mcg (0.15 %) spry Use 1 [place] in each nostril once daily. Lancets lancets [...] 1 tablet by mouth once daily. Ca/D3/mag ox/zinc/ad copy writer/shanelle/bor (CALCIUM 600-D3 PLUS ORAL) Take 1 capsule [...] 4). Weight as (more content not included)... [facility] 07-24-2024 History of Presen t illness Narrative This note was created using UCampusriter. Subjective Rachel Holloway is a 69 year [...] 205.5 mcg (0.15 %) spry Use 1 [place] in each nostril once daily. Lancets lancets [...] 1 tablet by mouth once daily. Ca/D3/mag ox/zinc/ad copy writer/shanelle/bor (CALCIUM 600-D3 PLUS ORAL) Take 1 capsule [...] The patient consented to the use of Advanced Brain Monitoring software for draft documentation of the visit consistent with [facility] s Notice of Privacy Practices. documented in this encounter [facility] 04-26-2024 History of Presen t illness Narrative [...] PATIENT PRESENTS WITH AN IMPLANTABLE OR ATTACHED SECY: No RADIOLOGY DEPARTMENT: General X-ray: Exam(s) Completed: Chest X-Ray PERIPHERAL IV DATA: Not applicable SIGNED BY: BRAEDEN Suarez) April 26, 2024 10:01 AM documented in this encounter [facility] 04-26-2024 Note HNO ID: [id number] Author: ROSEMARIE JACKSON RT(R) Service: Radiology Author [...] PATIENT PRESENTS WITH AN IMPLANTABLE OR ATTACHED SECY: No RADIOLOGY DEPARTMENT: General X-ray: Exam(s) Completed: Chest X-Ray PERIPHERAL IV DATA: Not applicable SIGNED BY: RT Erick(Esha) April 26, 2024 10:01 AM [facility] 04-26-2024 Note HNO ID: [id number] Author: SONNY ADAMS MD Service: ? Author [...] 205.5 mcg (0.15 %) spry Use 1 [place] in each nostril once daily. losartan (COZAAR) [...] daily. MULTIVITAMIN TAB Take by mouth. Ca/D3/mag ox/zinc/ad copy writer/shanelle/bor (CALCIUM 600-D3 PLUS ORAL) Take 1 capsule [...] BENZONATATE 100 MG CAPSULE Sonny Adams MD [facility] 04-26-2024 History of Presen t illness [...] 205.5 mcg (0.15 %) spry Use 1 [place] in each nostril once daily. losartan (COZAAR) [...] daily. MULTIVITAMIN TAB Take by mouth. Ca/D3/mag ox/zinc/ad copy writer/shanelle/bor (CALCIUM 600-D3 PLUS ORAL) Take 1 capsule [...] Sonny Adams MD documented in this encounter [facility] 04-03-2024 History of Presen t illness Narrative [...] PATIENT PRESENTS WITH AN IMPLANTABLE OR ATTACHED SECY: No RADIOLOGY DEPARTMENT: Mammography PERIPHERAL IV DATA: Not applicable SIGNED BY: Kacey Agarwal April 03, 2024 8:03 AM documented in this encounter [facility] 04-03-2024 Note HNO ID: [id number] Author: MARY GRACE BAIG Mammo Tech Service: ? Author Type: Bottom Sprayer Type: Progress Notes Filed: 04/03/2024 08:04 Note [...] PATIENT PRESENTS WITH AN IMPLANTABLE OR ATTACHED SECY: No RADIOLOGY DEPARTMENT: Mammography PERIPHERAL IV DATA: Not applicable SIGNED BY: Kacey Agarwal April 03, 2024 8:03 AM [facility] 02-22-2024 Note HNO ID: [id number] Author: EFREN MACIAS, JUDY Service: ? Author Type: Physical Therapist Type: [...] Stop Time : 1208 Efren Macias PT [facility] 02-22-2024 History of Presen t illness [...] WITH LEVEL OF FUNCTION: Positional Testing Right [place]: Asymptomatic, No nystagmus Right Ear Down: Asymptomatic, [...] Efren Macias PT documented in this encounter [facility] 02-15-2024 Note HNO ID: [id number] Author: EFREN MACIAS PT Service: ? 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) Prior Level of Function: Independent without limitations [...] LEVEL OF FUNCTION: Positional Testing Right Hiram-Hallpike: Symptomatic, Less than 60 seconds (with minimal nystagmus and very mild vertigo symptoms) Left Hiram-Hallpike: Asymptomatic, No nystagmus Cervical Spine ROM Cervical [...] Efren Macias PT documented in this encounter [facility] 01-25-2024 Telephone encounter Note Prescription Refill Information [...] Almendarez LPN January 25, 2024 7:57 AM [facility] 01-25-2024 Miscellaneous Notes Prescription Refill Information The [...] 2024 7:57 AM documented in this encounter [facility] 01-19-2024 Iglesia Bazan MD - 01/19/2024 9:32 AM EDT -Vestibular [...] and COVID vaccine can be obtained at [facility] at your convenience. - Urine sample will be collected today to check for protein leaking through kidneys. - Mammogram is due in March; the order has been placed, and you can schedule it at your convenience. - Next appointment is scheduled for July. documented in this encounter [facility] 01-19-2024 Note HNO ID: [id number] Author: IGLESIA MESSINA MD Service: ? Author Type: Physician Type: Progress Notes Filed: 02/28/2024 23:13 Note Text: This note was created using UCampusriter. Subjective Rachel Holloway is a 68 year [...] 205.5 mcg (0.15 %) spry Use 1 [place] in each nostril once daily. Lancets lancets [...] daily. MULTIVITAMIN TAB Take by mouth. Ca/D3/mag ox/zinc/ad copy writer/shanelle/bor (CALCIUM 600-D3 PLUS ORAL) Take 1 capsule by mouth once daily. (Patient not taking: Reported on 01/19/2024) No current facility-administered medications for this visit. Review of Systems Objective BP 122/66 Pulse 68 Temp 36.2 ?C (97.1 ?F) Resp 18 Wt 81.2 kg (179 lb 0.2 oz) SpO2 96% BMI 30.73 kg/m? Last 5 Encounter W (more content not included)... [facility] 01-19-2024 History of Presen t illness Narrative This note was created using NoteWriter. Subjective Rachel Holloway is a 68 year [...] 205.5 mcg (0.15 %) spry Use 1 [place] in each nostril once daily. Lancets lancets [...] daily. MULTIVITAMIN TAB Take by mouth. Ca/D3/mag ox/zinc/ad copy writer/shanelle/bor (CALCIUM 600-D3 PLUS ORAL) Take 1 capsule [...] Iglesia Messina MD documented in this encounter [facility] 10-16-2023 Telephone encounter Note The following approved medication requests have been transmitted electronically. Requested Prescriptions Pending Prescriptions Disp Refills losartan (COZAAR) 25 mg tablet 90 tablet 3 Sig: Take 1 tablet by mouth once daily. Iglesia Messina MD [facility] 10-16-2023 Miscellaneous Notes The following approved medication [...] 2023 10:28 AM documented in this encounter [facility] 10-16-2023 Telephone encounter Note Prescription Refill Information [...] Song MA October 16, 2023 10:28 AM [facility] 07-20-2023 Instructions Iglesia Messina MD - 07/20/2023 4:44 PM EDT May increase Vitamin D3 by 2000 to 4000 units daily. documented in this encounter [facility] 07-20-2023 History of Presen t illness Narrative This note was created using Supertecter. Subjective Rachel Holloway is a 68 year old female. Patient presents with: 6 mo follow up SUBJECTIVE: Rachel Holloway is a 68 year old year old lady here today for 6 month follow up appointment for review of medical conditions. Gets jose topete. See assessment and plan for other issues [...] 205.5 mcg (0.15 %) spry Use 1 [place] in each nostril once daily. losartan (COZAAR) [...] 1 capsule by mouth once daily. Ca/D3/mag ox/zinc/ad copy writer/shanelle/bor (CALCIUM 600-D3 PLUS ORAL) Take 1 capsule [...] Iglesia Messina MD documented in this encounter [facility] 07-05-2023 Miscellaneous Notes Patient notified Glipizide was escripted to [facility], 07/01/2023. Patient states she did get a conformation that something had been shipped, reviewed with Patient all the RXs done on 07/01/2023. Parisa Bills LPN documented in this encounter [facility] 07-01-2023 Miscellaneous Notes Patient has been identified [...] Tequila Do LPN. documented in this encounter [facility] 07-01-2023 Miscellaneous Notes Patient has been identified [...] Tequila Do LPN. documented in this encounter [facility] 07-01-2023 Miscellaneous Notes Patient has been identified [...] Tequila Do LPN. documented in this encounter [facility] 01-04-2023 Instructions Iglesia Messina MD - 01/04/2023 3:49 PM EDT Nasal [place] gel spray --see if this helps open up Eustachian tubes. Also [place] saline spray might also help. Okay to add to using Flonase. if not better, recommend ENT. [facility] outside of [facility] system. Closest [facility] provider is [facility] (Dr. Sammy Lee). Try taking 1 metformin daily and see if diarrhea improves adequately. If not better, then stop metformin. See if diarrhea resolves. May increase insulin if needed to control sugars. documented in this encounter [facility] 01-04-2023 History of Presen t illness Narrative This note was created using Supertecter. Subjective Rachel Holloway is a 67 year [...] 205.5 mcg (0.15 %) spry Use 1 [place] in each nostril once daily. meclizine (ANTIVERT) [...] needed (FOR PAIN OR MUSCLE SPASM). Ca/D3/mag ox/zinc/ad copy writer/shanelle/bor (CALCIUM 600-D3 PLUS ORAL) Take 1 capsule [...] Iglesia Messina MD documented in this encounter [facility] 08-25-2022 History of Presen t illness Narrative [...] needed (FOR PAIN OR MUSCLE SPASM). Ca/D3/mag ox/zinc/ad copy writer/shanelle/bor (CALCIUM 600-D3 PLUS ORAL) Take 1 capsule by mouth once daily. hydroxychloroquine (PLAQUENIL) 200 mg tablet Take 1 tablet by mouth twice daily. (Dr. Albright) aspirin, enteric coated (ASPIRIN, ENTERIC COATED) 81 mg EC tablet Take 81 mg by mouth once daily. Azelastine (ASTEPRO ALLERGY) 205.5 mcg (0.15 %) spry Use 1 [place] in each nostril once daily. predniSONE (DELTASONE) [...] Diabetes Mellitus Type 2, Controlled, Without Complications ([facility]) Social History Tobacco Use Smoking [...] to improve, for Keep next scheduled appointment.. SONA Land documented in this encounter [facility] 08-11-2022 History of Presen t illness Narrative SUBJECTIVE [...] needed (FOR PAIN OR MUSCLE SPASM). Ca/D3/mag ox/zinc/ad copy writer/shanelle/bor (CALCIUM 600-D3 PLUS ORAL) Take 1 capsule [...] Diabetes Mellitus Type 2, Controlled, Without Complications ([facility]) Social History Tobacco Use Smoking [...] recheck. SONA Land documented in this encounter [facility] 08-10-2022 Miscellaneous Notes Patient notified of results, verbalizes understanding of instructions. Celeste Swenson LPN Please call and let patient know she did have some arthritis and disc space narrowing in the lower neck but none in the upper neck area noted. Recommend continuing the Tylenol, heat or ice on the neck and following up tomorrow morning. documented in this encounter [facility] 08-10-2022 History of Presen t illness Narrative [...] 2022 12:26 PM documented in this encounter [facility] 08-10-2022 History of Presen t illness Narrative This note was created using CoupOption. Subjective Rachel Holloway is a 67 year [...] 1 capsule by mouth once daily. Ca/D3/mag ox/zinc/ad copy writer/shanelle/bor (CALCIUM 600-D3 PLUS ORAL) Take 1 capsule [...] 06/11/2022 repeat in 10 years COLONOSCOPY SCREENING 2012 PT ED GENERAL MEDICINE FAMILY HISTORY Problem [...] Dia Garcia PA-C documented in this encounter [facility] 06-11-2022 Nurse Note Patient freely passing flatus. Abdomen remains soft. Patient denies discomfort. Ann Sun RN Arrived in phase II via cart. Left lateral position. Sedated, but responds to verbal stimuli. Color normal; skin warm and dry. Respirations wnl and unlabored. Abdomen soft and with + bowel sounds in quads X 4. Patient resting comfortably. Ann Sun RN documented in this encounter [facility] 06-11-2022 History and physical note Images from the original note were not included. HISTORY AND PHYSICAL Rachel Lange Amie 1955 REFERRING PHYSICIAN: Iglesia Messina MD CHIEF [...] needed (FOR PAIN OR MUSCLE SPASM). Ca/D3/mag ox/zinc/ad copy writer/shanelle/bor (CALCIUM 600-D3 PLUS ORAL) Take 1 capsule [...] and reviewed by me Nursing Notes: Erin AMILCAR Scott 05/29/2022 10:01 AM Signed REVIEW OF SYSTEMS: [...] TIME: 7:46 AM documented in this encounter [facility] 06-10-2022 Miscellaneous Notes Patient has been identified [...] Anjelica Castañeda LPN documented in this encounter [facility] 05-29-2022 Instructions Artis Bradford MD - 05/29/2022 [...] If you do not have a responsible cdl company driver (family member or friend) with you [...] exam. 2 03/2019 documented in this encounter [facility] 05-29-2022 History of Presen t illness Narrative HISTORY AND PHYSICAL Rachel Lange Amie 1955 REFERRING PHYSICIAN: Iglesia Messina MD CHIEF [...] needed (FOR PAIN OR MUSCLE SPASM). Ca/D3/mag ox/zinc/ad copy writer/shanelle/bor (CALCIUM 600-D3 PLUS ORAL) Take 1 capsule [...] entered by the nurse and reviewed by nv Nursing Notes: Erin Scott LPN 05/29/2022 10:01 [...] consents to surgery. I plan to use Cinna[employer] preparation for endoscopy Patient is aware that [...] Bradford III, MD documented in this encounter [facility] 05-29-2022 Nurse Note REVIEW OF SYSTEMS: General: [...] Erin Scott LPN documented in this encounter [facility] 05-26-2022 History of Presen t illness Narrative This note was created using CoupOption. Subjective Rachel Holloway is a 66 year [...] 1 capsule by mouth once daily. Ca/D3/mag ox/zinc/ad copy writer/shanelle/bor (CALCIUM 600-D3 PLUS ORAL) Take 1 capsule [...] Iglesia Messina MD documented in this encounter [facility] 03-31-2022 Miscellaneous Notes March 31, 2022 PID: [id number] Rachel Holloway [address] [place] [address] Dear Ms. Holloway, We are pleased to [...] report will be kept on file at [facility] as part of your permanent medical record and are available for your continuing care. Thank you for allowing us to help in meeting your health care needs. Sincerely, Dr. Nino Interpreting Radiologist [facility] (Normal over 40) documented in this encounter [facility] 03-30-2022 History of Presen t illness Narrative [...] 2022 11:49 AM documented in this encounter [facility] 10-15-2021 Miscellaneous Notes Was previously addressed and ordered. Rebekah Cope APRN.CNP documented in this encounter [facility] 09-12-2021 Miscellaneous Notes Patient notified that prescription [...] mg tabs twice daily. Please send to [facility] and update Rachel when completed, . documented in this encounter [facility] 09-02-2020 History of Presen t illness Narrative [...] 2020 10:14 AM documented in this encounter [facility] 01-22-2014 History of Past i llness Narrative Problem Noted Date Resolved Date Hip pain, left 01/22/2014 12/12/2014 Cough 08/27/2008 documented as of this encounter (statuses as of 09/12/2021) [facility] of Past illness Narrative* Problem Noted Date Resolved Date Hip pain, left 01/22/2014 12/12/2014 Cough 08/27/2008 documented as of this encounter (statuses as of 10/15/2021) [facility] of [facility] Narrative* Problem Noted Date Resolved Date Hip pain, left 01/22/2014 12/12/2014 Cough 08/27/2008 documented as of this encounter (statuses as of 02/11/2022) [facility] of [facility] Narrative* Problem Noted Date Resolved Date Hip pain, left 01/22/2014 12/12/2014 Cough 08/27/2008 documented as of this encounter (statuses as of 02/25/2022) [facility] of [facility] illness Narrative* Problem Noted Date Resolved Date Hip pain, left 01/22/2014 12/12/2014 Cough 08/27/2008 documented as of this encounter (statuses as of 03/27/2022) [facility] of [facility] Narrative* Problem Noted Date Resolved Date Hip pain, left 01/22/2014 12/12/2014 Cough 08/27/2008 documented as of this encounter (statuses as of 04/02/2022) [facility] of [facility] illness Narrative* Problem Noted Date Resolved Date Hip pain, left 01/22/2014 12/12/2014 Cough 08/27/2008 documented as of this encounter (statuses as of 05/27/2022) [facility] Narrative* Problem Noted Date Resolved Date Hip pain, left 01/22/2014 12/12/2014 Cough 08/27/2008 documented as of this encounter (statuses as of 05/29/2022) [facility] Narrative* Problem Noted Date Resolved Date Hip pain, left 01/22/2014 12/12/2014 Cough 08/27/2008 documented as of this encounter (statuses as of 06/10/2022) [facility] Narrative* Problem Noted Date Resolved Date Hip pain, left 01/22/2014 12/12/2014 Cough 08/27/2008 documented as of this encounter (statuses as of 08/10/2022) [facility] Narrative* Problem Noted Date Resolved Date Hip pain, left 01/22/2014 12/12/2014 Cough 08/27/2008 documented as of this encounter (statuses as of 08/11/2022) [facility] Narrative* Problem Noted Date Resolved Date Hip pain, left 01/22/2014 12/12/2014 Cough 08/27/2008 documented as of this encounter (statuses as of 08/11/2022) [facility] Narrative* Problem Noted Date Resolved Date Hip pain, left 01/22/2014 12/12/2014 Cough 08/27/2008 documented as of this encounter (statuses as of 08/25/2022) [facility] Narrative* Problem Noted Date Diagnosed Date Resolved Date Hip pain, left 01/22/2014 12/12/2014 Cough 08/27/2008 documented as of this encounter (statuses as of 01/25/2023) [facility] N[facility]ative* Problem Noted Date Diagnosed Date Resolved Date Hip pain, left 01/22/2014 12/12/2014 Cough 08/27/2008 documented as of this encounter (statuses as of 02/21/2023) [facility] N[facility]* Problem Noted Date Diagnosed Date Resolved Date Hip pain, left 01/22/2014 12/12/2014 Cough 08/27/2008 documented as of this encounter (statuses as of 02/21/2023) [facility] N[facility]ative* Problem Noted Date Diagnosed Date Resolved Date Hip pain, left 01/22/2014 12/12/2014 Cough 08/27/2008 documented as of this encounter (statuses as of 03/15/2023) [facility] N[facility]* Problem Noted Date Diagnosed Date Resolved Date Hip pain, left 01/22/2014 12/12/2014 Cough 08/27/2008 documented as of this encounter (statuses as of 07/01/2023) [facility] N[facility]ative* Problem Noted Date Diagnosed Date Resolved Date Hip pain, left 01/22/2014 12/12/2014 Cough 08/27/2008 documented as of this encounter (statuses as of 07/01/2023) [facility] N[facility]* Problem Noted Date Diagnosed Date Resolved Date Hip pain, left 01/22/2014 12/12/2014 Cough 08/27/2008 documented as of this encounter (statuses as of 07/01/2023) [facility] N[facility]* Problem Noted Date Diagnosed Date Resolved Date Hip pain, left 01/22/2014 12/12/2014 Cough 08/27/2008 documented as of this encounter (statuses as of 07/05/2023) [facility] N[facility]ative* Problem Noted Date Diagnosed Date Resolved Date Hip pain, left 01/22/2014 12/12/2014 Cough 08/27/2008 documented as of this encounter (statuses as of 07/06/2023) [facility] note* Diagnosis Controlled type 2 diabetes mellitus without complication, with long-term current use of insulin (HCC) documented in this encounter [facility] noteNo assessment information availableWMercy Health St[facility] Work Phone: Evaluation note* Diagnosis Controlled type 2 diabetes mellitus without complication, with long-term current use of insulin (HCC) documented in this encounter [facility] note* Diagnosis Encounter for screening mammogram for breast cancer- Primary documented in this encounter [facility] note* Diagnosis Controlled type 2 diabetes mellitus [...] single bacterial disease documented in this encounter [facility] note* Diagnosis Colon cancer screening Special screening for malignant neoplasms, colon documented in this encounter [facility] note* Diagnosis Essential hypertension Unspecified essential hypertension Screening for colon cancer- Primary Special screening for malignant neoplasms, colon documented in this encounter [facility] note* Diagnosis Dizziness- Primary Dizziness and giddiness Neck pain Cervicalgia [facility] Diagnosis Neck pain- Primary Cervicalgia documented in this encounter [facility] note* Diagnosis Neck pain- Primary Cervicalgia Post-nasal drainage Unspecified sinusitis (chronic) Seasonal allergic rhinitis, unspecified trigger Controlled type 2 diabetes mellitus without complication, with long-term current use of insulin (HCC) Essential hypertension Unspecified essential hypertension documented in this encounter [facility] note* Diagnosis Controlled type 2 diabetes mellitus without complication, with long-term current use of insulin (HCC)- Primary Diarrhea, unspecified type Essential hypertension Unspecified essential hypertension Vitamin D deficiency Unspecified vitamin D deficiency Mixed hyperlipidemia Allergic rhinitis, unspecified seasonality, unspecified trigger [facility] Diagnosis Encounter for screening mammogram for breast cancer [facility] Diagnosis Neck pain Cervicalgia [facility] Diagnosis Screening for colon cancer- Primary Special screening for malignant neoplasms, colon Colon cancer screening Special screening for malignant neoplasms, colon [facility] Diagnosis Screening mammogram for breast cancer- Primary [facility] Diagnosis Controlled type 2 diabetes mellitus without complication, with long-term current use of insulin (HCC) [facility] Diagnosis Essential hypertension Unspecified essential hypertension [facility] Diagnosis Controlled type 2 diabetes mellitus without complication, with long-term current use of insulin ([facility]) [facility] Diagnosis Controlled type 2 [...] single bacterial disease [facility] Diagnosis Controlled type 2 diabetes mellitus without complication, with long-term current use of insulin (HCC) Essential hypertension Unspecified essential hypertension [facility] Diagnosis Foot pain, left Pain in limb [facility] Diagnosis Controlled type 2 diabetes mellitus without complication, with long-term current use of insulin ([facility]) [facility] Diagnosis Benign paroxysmal positional vertigo, unspecified laterality [facility] Diagnosis Benign paroxysmal positional vertigo of right ear- Primary [facility] Diagnosis Controlled type 2 [...] use of medication [facility] Diagnosis Encounter for screening mammogram for breast cancer documented in this encounter [facility] note* Diagnosis Subacute cough- Primary Cough Subacute cough Cough documented in this encounter [facility] note* Diagnosis Subacute cough Cough documented in this encounter [facility] note* Diagnosis Subacute cough- Primary Cough documented in this encounter [facility] note* Diagnosis Essential hypertension- Primary Unspecified essential hypertension Controlled type 2 diabetes mellitus without complication, with long-term current use of insulin (HCC) Gastroesophageal reflux disease without esophagitis Esophageal reflux Mixed hyperlipidemia Vitamin D deficiency Unspecified vitamin D deficiency Encounter for immunization Need for other specified prophylactic vaccination against single bacterial disease documented in this encounter [facility] note* Diagnosis Urinary tract infection with hematuria, site unspecified- Primary Nausea Nausea alone Diarrhea, unspecified type SOB (shortness of breath) Shortness of breath PND (paroxysmal nocturnal dyspnea) Other dyspnea and respiratory abnormality Controlled type 2 diabetes mellitus without complication, with long-term current use of insulin (HCC) Essential hypertension Unspecified essential hypertension documented in this encounter [facility] note* Diagnosis Controlled type 2 diabetes mellitus without complication, with long-term current use of insulin (HCC) documented in this encounter [facility] note* Diagnosis Urinary tract infection with hematuria, [...] female climacteric states documented in this encounter [facility] note* Diagnosis Microscopic hematuria- Primary documented in this encounter [facility] for referral (narrative)* Diagnostic Procedure Only (Routine) - Pending Review Specialty Diagnoses / Procedures Referred By Velma t Referred To Contact [facility] Diagnoses Encounter for screening mammogram for breast cancer Procedures DEDE SCREENING SCREENING MAMMOGRAPHY BI 2-VIEW BREAST INC Tory Llanos APRN.CNP [address] [place] [address] [facility] [address] [place] [address] Referral ID Status Reason Start Date Expiration Date Visits Requested Visits Authorized [id number] Pending Review Auto-Generat ed Referral 03/27/2022 04/26/2023 1 1 [facility] for referral (narrative)* Outpatient Procedure (Routine) - Authorized Specialty Diagnoses / Procedures Referred By Contac t Referred To Contact [facility] Diagnoses Colon cancer screening Procedures COLONOSCOPY DIAGNOSTIC COLONOSCOPY FLX DX W/COLLJ SPEC WHEN PFRMD Artis Bradford MD [address] [id number] [facility] [address] [address] Referral ID Status Reason Start Date Expiration Date Visits Requested Visits Authorized [id number] Authorized Auto-Generat ed Referral 05/29/2022 05/29/[address] [facility] for referral (narrative)* Diagnostic Procedure Only (Urgent) - Closed Specialty Diagnoses / Procedures Referred By Contac t Referred To Contact [facility] Diagnoses Neck pain Procedures XR CERV OTHER 4V AP/LAT/OBL RADEX SPINE CERVICAL 4 OR 5 VIEWS Dia Garcia PA-C [address] [place] [address] X[facility] Imaging Referral ID Status Reason Start Date Expiration Date V isits Requested Visits Authorized [id number] Closed Auto-Generate d Referral 08/10/2022 09/09/2023 1 1 [facility] for referral (narrative)* Diagnostic Procedure Only (Routine) - Closed Specialty Diagnoses / Procedures Referred By Contac t Referred To Contact [facility] Diagnoses Encounter for screening mammogram for breast cancer Procedures DEDE SCREENING SCREENING MAMMOGRAPHY BI 2-VIEW BREAST INC Tory Llanos APRN.CNP [address] [place] [address] [facility] [address] [place] [phone] Referral ID Status Reason Start Date Expiration Date V isits Requested Visits Authorized [id number] Closed Auto-Generate d Referral 03/27/2022 04/26/2023 1 1 [facility] for referral (narrative)* Diagnostic Procedure Only (Urgent) - Closed Specialty Diagnoses / Procedures Referred By Contac t Referred To Contact XR IMAGING Diagnoses Neck pain Procedures XR CERV OTHER 4V AP/LAT/OBL RADEX SPINE CERVICAL 4 OR 5 VIEWS Dia Garcia PA-C [address] [place] [address] Xr Imaging [facility] Referral ID Status Reason Start Date Expiration Date V isits Requested Visits Authorized [id number] Closed Auto-Generate d Referral 08/10/2022 09/09/2023 1 1 [facility] for referral (narrative)* Outpatient Procedure (Routine) - Closed Specialty Diagnoses / Procedures Referred By Contac t Referred To Contact [facility] Diagnoses Colon cancer screening Procedures COLONOSCOPY DIAGNOSTIC COLONOSCOPY FLX DX W/COLLJ SPEC WHEN PFRMD Artis Bradford MD [address] [place] [address] [facility] [address] [place] [id number] Referral ID Status Reason Start Date Expiration Date V isits Requested Visits Authorized [id number] Closed Auto-Generate d Referral 05/29/2022 05/29/2023 1 1 [facility] for referral (narrative)* Diagnostic Procedure Only (Routine) - Authorized Specialty Diagnoses / Procedures Referred By Contac t Referred To Contact [facility] Diagnoses Screening mammogram for breast cancer Procedures DEDE SCREENING SCREENING MAMMOGRAPHY BI 2-VIEW BREAST INC Tory Llanos APRN.CNP [address] [place] [address] [facility] [address] [place] [phone] Referral ID Status Reason Start Date Expiration Date Visits Requested Visits Authorized [id number] Authorized Auto-Generat ed Referral 04/06/2024 1 1 [facility] for referral (narrative)* Diagnostic Procedure Only (Routine) - Authorized Specialty Diagnoses / Procedures Referred By Velma morgan Referred To Contact [facility] Diagnoses Encounter for screening mammogram for breast cancer Procedures DEDE SCREENING SCREENING MAMMOGRAPHY BI 2-VIEW BREAST INC Iglesia Thurston MD [address] [place], [place] [id number] [facility] [address] [place] [phone] Referral ID Status Reason Start Date Expiration Date Visits Requested Visits Authorized [id number] Authorized Auto-Generat ed Referral 01/19/2024 02/17/2025 1 1 * Physical Therapy (Routine) - Authorized Specialty Diagnoses / Procedures Referred By Velma morgan Referred To Contact [facility] Diagnoses Benign paroxysmal positional vertigo, unspecified laterality Procedures CONSULT TO PHYSICAL THERAPY PHYSICAL THERAPY EVALUATION HIGH COMPLEX 45 MINS Iglesia Messina MD [address] [place], [place] [id number] [facility] [address] [address] Referral ID Status Reason Start Date Expiration Date Visits Requested Visits Authorized [id number] Authorized Auto-Generat ed Referral 04/19/2023 04/18/2024 99 99 [facility] for referral (narrative)No reason for referral information availableWMercy [facility] Work Phone: Reason for visit Narrative* Diagnostic Procedure Only (Routine) - Closed Specialty Diagnoses / Procedures Referred By Contac t Referred To Contact [facility] Diagnoses Encounter for screening mammogram for breast cancer Procedures DEDE SCREENING SCREENING MAMMOGRAPHY BI 2-VIEW BREAST INC CAD Tory Morales APRN.RIB BENDER [address] [place] [address] [facility] [address] [place] [address] Referral ID Status Reason Start Date Expiration Date V isits Requested Visits Authorized [id number] Closed Auto-Generate d Referral 03/27/2022 04/26/2023 1 1 [facility] for visit Narrative* Diagnostic Procedure Only (Urgent) - Closed Specialty Diagnoses / Procedures Referred By Contac t Referred To Contact XR IMAGING Diagnoses Neck pain Procedures XR CERV OTHER 4V AP/LAT/OBL RADEX SPINE CERVICAL 4 OR 5 VIEWS Dia Garcia, PARumaC [address] [place] [address] Xr Imaging [facility] Referral ID Status Reason Start Date Expiration Date V isits Requested Visits Authorized [id number] Closed Auto-Generate d Referral 08/10/2022 09/09/2023 1 1 [facility] for visit Narrative* Outpatient Procedure (Routine) - Closed Specialty Diagnoses / Procedures Referred By Contac t Referred To Contact [facility] Diagnoses Colon cancer screening Procedures COLONOSCOPY DIAGNOSTIC COLONOSCOPY FLX DX W/COLLJ SPEC WHEN PFRMD Artis Bradford MD [address] [place] [address] [facility] [address] [place] [address] Referral ID Status Reason Start Date Expiration Date V isits Requested Visits Authorized [id number] Closed Auto-Generate d Referral 05/29/2022 05/29/2023 1 1 [facility] for visit Narrative* Diagnostic Procedure Only (Routine) - Closed Specialty Diagnoses / Procedures Referred By Contac t Referred To Contact [facility] Diagnoses Encounter for screening mammogram for breast cancer Procedures DEDE SCREENING SCREENING MAMMOGRAPHY BI 2-VIEW BREAST INC CAD Iglesia Messina MD [address] [place] [address] [facility] [address] [facility] [place] [address] Referral ID Status Reason Start Date Expiration Date V isits Requested Visits Authorized [id number] Closed Auto-Generate d Referral 01/19/2024 02/17/2025 1 1 [facility] Chief Complaint and Reason for Visit Chief Complaint PAIN- COPY PCP Chief Complaint OSTEOARTHRITIS Chief Complaint Admit Date General illness August 27, 2024 9:32p m Chief Complaint Admit Date General illness August 27, 2024 9:32p m PAIN- COPY PCP October 13, 2024 8:10 am Chief Complaint Admit Date General illness August 27, 2024 9:32p m PAIN- COPY PCP October 13, 2024 8:10 am ELEVATED LIVER ENZYMES October 26, 2024 7 :11am Advance Directives Advance Directive Response Recorded Date/ Time Living Will Yes December 04 8:41am Power of Clay Burner Yes December 04 8:41am Advance Directive Response Recorded Date/ Time Living Will Yes December 04 7:41am Power of Clay Burner Yes December 04 7:41am Documents on File Type Date Recorded 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 No August 27, 2024 9:42pm Reason for Referral Specialty Diagnoses / Procedures Referred By Contmac t Referred To Contact General Surgery Diagnoses Colon cancer screening Procedures CONSULT TO GENERAL SURGERY OFFICE/OUTPATIENT [facility] 60-74 MINUTES Iglesia Messina MD [address] [place] [address] Artis Bradford MD [address] [place] [address] Referral ID Status Reason Start Date Expiration Date Visits Requested Visits Authorized [id number] Pending Review PCP Requested Referral 05/26/2022 05/26/2023 [...] or prosecute any alcohol or drug abuse patient.[facility] Center[facility] the event this information is protected by the Federal Confidentiality of Alcohol and Drug Abuse Patient Records regulations: The Federal rules restrict any use of the information to criminally investigate or prosecute any alcohol or drug abuse patient.[facility] CenterIn the event this information is protected by the Federal Confidentiality of Alcohol and Drug Abuse Patient Records regulations: The Federal rules restrict any use of the information to criminally investigate or prosecute any alcohol or drug abuse patient.[facility] CenterIn the event this information is protected by the Federal Confidentiality of Alcohol and Drug Abuse Patient Records regulations: The Federal rules restrict any use of the information to criminally investigate or prosecute any alcohol or drug abuse patient.[facility] CenterIn the event this information is protected by the Federal Confidentiality of Alcohol and Drug Abuse Patient Records regulations: The Federal rules restrict any use of the information to criminally investigate or prosecute any alcohol or drug abuse patient.[facility] CenterIn the event this information is protected by the Federal Confidentiality of Alcohol and Drug Abuse Patient Records regulations: The Federal rules restrict any use of the information to criminally investigate or prosecute any alcohol or drug abuse patient.[facility] CenterIn the event this information is protected by the Federal Confidentiality of Alcohol and Drug Abuse Patient Records regulations: The Federal rules restrict any use of the information to criminally investigate or prosecute any alcohol or drug abuse patient.[facility] CenterIn the event this information is protected by the Federal Confidentiality of Alcohol and Drug Abuse Patient Records regulations: The Federal rules restrict any use of the information to criminally investigate or prosecute any alcohol or drug abuse patient.[facility] CenterIn the event this information is protected by the Federal Confidentiality of Alcohol and Drug Abuse Patient Records regulations: The Federal rules restrict any use of the information to criminally investigate or prosecute any alcohol or drug abuse patient.[facility] CenterIn the event this information is protected by the Federal Confidentiality of Alcohol and Drug Abuse Patient Records regulations: The Federal rules restrict any use of the information to criminally investigate or prosecute any alcohol or drug abuse patient.[facility] CenterIn the event this information is protected by the Federal Confidentiality of Alcohol and Drug Abuse Patient Records regulations: The Federal rules restrict any use of the information to criminally investigate or prosecute any alcohol or drug abuse patient.[facility] CenterIn the event this information is protected by the Federal Confidentiality of Alcohol and Drug Abuse Patient Records regulations: The Federal rules restrict any use of the information to criminally investigate or prosecute any alcohol or drug abuse patient.[facility] CenterIn the event this information is protected by the Federal Confidentiality of Alcohol and Drug Abuse Patient Records regulations: The Federal rules restrict any use of the information to criminally investigate or prosecute any alcohol or drug abuse patient.[facility] CenterIn the event this information is protected by the Federal Confidentiality of Alcohol and Drug Abuse Patient Records regulations: The Federal rules restrict any use of the information to criminally investigate or prosecute any alcohol or drug abuse patient.[facility] CenterIn the event this information is protected by the Federal Confidentiality of Alcohol and Drug Abuse Patient Records regulations: The Federal rules restrict any use of the information to criminally investigate or prosecute any alcohol or drug abuse patient.[facility] CenterIn the event this information is protected by the Federal Confidentiality of Alcohol and Drug Abuse Patient Records regulations: The Federal rules restrict any use of the information to criminally investigate or prosecute any alcohol or drug abuse patient.[facility] CenterIn the event this information is protected by the Federal Confidentiality of Alcohol and Drug Abuse Patient Records regulations: The Federal rules restrict any use of the information to criminally investigate or prosecute any alcohol or drug abuse patient.[facility] CenterIn the event this information is protected by the Federal Confidentiality of Alcohol and Drug Abuse Patient Records regulations: The Federal rules restrict any use of the information to criminally investigate or prosecute any alcohol or drug abuse patient.[facility] CenterIn the event this information is protected by the Federal Confidentiality of Alcohol and Drug Abuse Patient Records regulations: The Federal rules restrict any use of the information to criminally investigate or prosecute any alcohol or drug abuse patient.[facility] CenterIn the event this information is protected by the Federal Confidentiality of Alcohol and Drug Abuse Patient Records regulations: The Federal rules restrict any use of the information to criminally investigate or prosecute any alcohol or drug abuse patient.[facility] CenterIn the event this information is protected by the Federal Confidentiality of Alcohol and Drug Abuse Patient Records regulations: The Federal rules restrict any use of the information to criminally investigate or prosecute any alcohol or drug abuse patient.[facility] CenterIn the event this information is protected by the Federal Confidentiality of Alcohol and Drug Abuse Patient Records regulations: The Federal rules restrict any use of the information to criminally investigate or prosecute any alcohol or drug abuse patient.[facility] CenterIn the event this information is protected by the Federal Confidentiality of Alcohol and Drug Abuse Patient Records regulations: The Federal rules restrict any use of the information to criminally investigate or prosecute any alcohol or drug abuse patient.[facility] CenterIn the event this information is protected by the Federal Confidentiality of Alcohol and Drug Abuse Patient Records regulations: The Federal rules restrict any use of the information to criminally investigate or prosecute any alcohol or drug abuse patient.[facility] CenterIn the event this information is protected by the Federal Confidentiality of Alcohol and Drug Abuse Patient Records regulations: The Federal rules restrict any use of the information to criminally investigate or prosecute any alcohol or drug abuse patient.[facility] CenterIn the event this information is protected by the Federal Confidentiality of Alcohol and Drug Abuse Patient Records regulations: The Federal rules restrict any use of the information to criminally investigate or prosecute any alcohol or drug abuse patient.[facility] CenterIn the event this information is protected by the Federal Confidentiality of Alcohol and Drug Abuse Patient Records regulations: The Federal rules restrict any use of the information to criminally investigate or prosecute any alcohol or drug abuse patient.[facility] CenterIn the event this information is protected by the Federal Confidentiality of Alcohol and Drug Abuse Patient Records regulations: The Federal rules restrict any use of the information to criminally investigate or prosecute any alcohol or drug abuse patient.[facility] CenterIn the event this information is protected by the Federal Confidentiality of Alcohol and Drug Abuse Patient Records regulations: The Federal rules restrict any use of the information to criminally investigate or prosecute any alcohol or drug abuse patient.[facility] CenterIn the event this information is protected by the Federal Confidentiality of Alcohol and Drug Abuse Patient Records regulations: The Federal rules restrict any use of the information to criminally investigate or prosecute any alcohol or drug abuse patient.[facility] CenterIn the event this information is protected by the Federal Confidentiality of Alcohol and Drug Abuse Patient Records regulations: The Federal rules restrict any use of the information to criminally investigate or prosecute any alcohol or drug abuse patient.[facility] CenterIn the event this information is protected by the Federal Confidentiality of Alcohol and Drug Abuse Patient Records regulations: The Federal rules restrict any use of the information to criminally investigate or prosecute any alcohol or drug abuse patient.[facility] CenterIn the event this information is protected by the Federal Confidentiality of Alcohol and Drug Abuse Patient Records regulations: The Federal rules restrict any use of the information to criminally investigate or prosecute any alcohol or drug abuse patient.[facility] CenterIn the event this information is protected by the Federal Confidentiality of Alcohol and Drug Abuse Patient Records regulations: The Federal rules restrict any use of the information to criminally investigate or prosecute any alcohol or drug abuse patient.[facility] CenterIn the event this information is protected by the Federal Confidentiality of Alcohol and Drug Abuse Patient Records regulations: The Federal rules restrict any use of the information to criminally investigate or prosecute any alcohol or drug abuse patient.[facility] CenterIn the event this information is protected by the Federal Confidentiality of Alcohol and Drug Abuse Patient Records regulations: The Federal rules restrict any use of the information to criminally investigate or prosecute any alcohol or drug abuse patient.[facility] CenterIn the event this information is protected by the Federal Confidentiality of Alcohol and Drug Abuse Patient Records regulations: The Federal rules restrict any use of the information to criminally investigate or prosecute any alcohol or drug abuse patient.[facility] CenterIn the event this information is protected by the Federal Confidentiality of Alcohol and Drug Abuse Patient Records regulations: The Federal rules restrict any use of the information to criminally investigate or prosecute any alcohol or drug abuse patient.[facility] CenterIn the event this information is protected by the Federal Confidentiality of Alcohol and Drug Abuse Patient Records regulations: The Federal rules restrict any use of the information to criminally investigate or prosecute any alcohol or drug abuse patient.[facility] CenterIn the event this information is protected by the Federal Confidentiality of Alcohol and Drug Abuse Patient Records regulations: The Federal rules restrict any use of the information to criminally investigate or prosecute any alcohol or drug abuse patient.[facility] CenterIn the event this information is protected by the Federal Confidentiality of Alcohol and Drug Abuse Patient Records regulations: The Federal rules restrict any use of the information to criminally investigate or prosecute any alcohol or drug abuse patient.[facility] Reason for Visit (unrecogniz ed section and content) Reason Comments Physical Therapy Specialty Diagnoses / Procedures Referred By Contac t Referred To Contact [facility] Diagnoses Benign paroxysmal positional vertigo, unspecified laterality Procedures CONSULT TO PHYSICAL THERAPY PHYSICAL THERAPY EVALUATION HIGH COMPLEX 45 MINS Iglesia Messina MD [address] [place] [address] [facility] [place] [address] [place] [address] Referral ID Status Reason Start Date Expiration Date Visits Requested Visits Authorized [id number] Authorized Auto-Generat ed Referral 04/19/2023 04/18/2024 99 99 Reason Comments Medication Request Reason Comments F/U 6 months Reason Comments Consult colonoscopy Specialty Diagnoses / Procedures Referred By Velma morgan Referred To Contact General Surgery Diagnoses Colon cancer screening Procedures CONSULT TO GENERAL SURGERY OFFICE/OUTPATIENT [facility] MDM 60-74 MINUTES Iglesia Messina MD [address] [place] [address] Artis Bradford MD [address] [place] [address] Referral ID Status Reason Start Date Expiration Date Visits Requested Visits Authorized [id number] Pending Review PCP Requested Referral 05/26/2022 05/26/2023 [...] Care Teams (unrecognized sec tion and content) Maxillofacial Prosthodontist Relationship Specialty Start Date End Date Iglesia Messina MD [address] [facility] [place] [place] [address] PCP - General 02/07/02 Maxillofacial Prosthodontist Relationship Specialty Start Date End Date Iglesia Messina MD [address] [place] [address] [place] [address] PCP - General 02/07/02 Maxillofacial Prosthodontist Relationship Specialty Start Date End Date Iglesia Messina MD [address] [place] [address] [place] [address] PCP - General 02/07/02 Maxillofacial Prosthodontist Relationship Specialty Start Date End Date Iglesia Messina MD [address] [place] [address] [place] [address] PCP - General 02/07/02 Maxillofacial Prosthodontist Relationship Specialty Start Date End Date Iglesia Messina MD [address] [place] [address] [place] [address] PCP - General 02/07/02 Team Status: Active [...] OBREGON Attending Provider, Referring Suzette arceo Active Maxillofacial Prosthodontist Relationship Specialty Start Date End Date Iglesia Messina MD [facility] [place] [address] PCP - General 02/07/02 Maxillofacial Prosthodontist Relationship Specialty Start Date End Date Iglesia Messina MD [address] [place] [address] PCP - General 02/07/02 Maxillofacial Prosthodontist Relationship Specialty Start Date End Date Iglesia Messina MD [address] [facility] [place] [address] PCP - General 02/07/02 Team Status: Inactive Member Role Status Dates Dr. Iglesia Messina MD Primary Care Provider Active DANIA OBREGON Referring Provider Active DANIA LEWIS Attending Provider Active Maxillofacial Prosthodontist Relationship Specialty Start Date End Date Iglesia Messina MD [address] [place] [address] PCP - General 02/07/02 Maxillofacial Prosthodontist Relationship Specialty Start Date End Date Iglesia Messina MD [address] [facility] [place] [address] PCP - General 02/07/02 Maxillofacial Prosthodontist Relationship Specialty Start Date End Date Iglesia Messina MD [address] [place] [address] PCP - General 02/07/02 Maxillofacial Prosthodontist Relationship Specialty Start Date End Date Iglesia Messina MD [address] [facility] [place] [address] PCP - General 02/07/02 Maxillofacial Prosthodontist Relationship Specialty Start Date End Date Iglesia Messina MD [address] [place] [address] [place] [address] PCP - General 02/07/02 Maxillofacial Prosthodontist Relationship Specialty Start Date End Date Iglesia Messina MD [address] [place] [address] PCP - General 02/07/02 Maxillofacial Prosthodontist Relationship Specialty Start Date End Date Iglesia Messina MD [address] [place] [address] PCP - General 02/07/02 Maxillofacial Prosthodontist Relationship Specialty Start Date End Date Iglesia Messina MD [address] [place] [address] PCP - General 02/07/02 Maxillofacial Prosthodontist Relationship Specialty Start Date End Date Iglesia Messina MD [address] [place] [address] PCP - General 02/07/02 Maxillofacial Prosthodontist Relationship Specialty Start Date End Date Iglesia Messina MD [address] [place] [address] PCP - General 02/07/02 Maxillofacial Prosthodontist Relationship Specialty Start Date End Date Iglesia Messina MD [address] [place] [address] PCP - General 02/07/02 Maxillofacial Prosthodontist Relationship Specialty Start Date End Date Iglesia Messina MD [address] [place] [address] PCP - General 02/07/02 Maxillofacial Prosthodontist Relationship Specialty Start Date End Date Iglesia Messina MD [address] [place] [address] PCP - General 02/07/02 Maxillofacial Prosthodontist Relationship Specialty Start Date End Date Iglesia Messina MD [address] [place] [address] PCP - General 02/07/02 Maxillofacial Prosthodontist Relationship Specialty Start Date End Date Iglesia Messina MD [address] [place] [address] PCP - General 02/07/02 Maxillofacial Prosthodontist Relationship Specialty Start Date End Date Iglesia Messina MD [address] [place] [address] PCP - General 02/07/02 Maxillofacial Prosthodontist Relationship Specialty Start Date End Date Iglesia Messina MD [address] [place] [address] PCP - General 02/07/02 Maxillofacial Prosthodontist Relationship Specialty Start Date End Date Iglesia Messina MD [address] [facility] [place] [address] PCP - General 02/07/02 Maxillofacial Prosthodontist Relationship Specialty Start Date End Date Iglesia Messina MD [address] [place] [address] PCP - General 02/07/02 Ebony Hong, MORTGAGE ADVISOR.SALES EXPERT [address] [facility] [place] [address] Retail Consultant Internal Medicine 03/27/24 Tory Morales MORTGAGE ADVISOR.RIB BENDER [address] [place] [address] Retail Consultant Internal Medicine 03/27/24 Maxillofacial Prosthodontist Relationship Specialty Start Date End Date Iglesia Messina MD [address] [facility] [place] [address] PCP - General 02/07/02 Ebony Hong, ARNALDO.SALES EXPERT [address] [facility] [place] [place] [address] Retail Consultant Internal Medicine 03/27/24 Tory Morales APRN.RIB BENDER [address] [place] [address] Retail Consultant Internal Medicine 03/27/24 Maxillofacial Prosthodontist Relationship Specialty Start Date End Date Iglesia Messina MD [address] [place] [address] PCP - General 02/07/02 Ebony Hong APRN.SALES EXPERT [address] [place] [address] Retail Consultant Internal Medicine 03/27/24 Tory Morales APRN.RIB BENDER [address] [place] [address] Retail Consultant Internal Medicine 03/27/24 Maxillofacial Prosthodontist Relationship Specialty Start Date End Date Iglesia Messina MD [address] [place] [address] PCP - General 02/07/02 Ebony Hong MORTGAGE ADVISOR.SALES EXPERT [address] [place] [address] Retail Consultant Internal Medicine 03/27/24 Tory Morales APRN.RIB BENDER [address] [place] [address] Retail Consultant Internal Medicine 07/11/24 Team Status: Active Member Role Status Dates Dr. Iglesia Messina MD Primary Care Provider Active Team Status: Inactive Member Role Status Dates Dr. Iglesia Messina MD Primary Care Provider Active Start: August 27, 2024 End: August 28, 2024 Dr. Artis David MD Emergency Provider Active Start: August 27, 2024 End: August 28, 2024 Maxillofacial Prosthodontist Relationship Specialty Start Date End Date Iglesia Messina MD [address] [facility] [place] [address] PCP - General 02/07/02 Ebony Hong APRN.SALES EXPERT [address] [facility] [place] [address] Retail Consultant Internal Medicine 03/27/24 Tory Morales APRN.RIB BENDER [address] [facility] [place] [address] Retail Consultant Internal Medicine 07/11/24 Maxillofacial Prosthodontist Relationship Specialty Start Date End Date Iglesia Messina MD [address] [facility] [place] [address] PCP - General 02/07/02 Tory Morales APRN.RIB BENDER [address] [facility] [place] [address] Retail Consultant Internal Medicine 07/11/24 Ebony Hong MORTGAGE ADVISOR.SALES EXPERT [address] [facility] [place] [address] Retail Consultant Internal Medicine 09/06/24 Maxillofacial Prosthodontist Relationship Specialty Start Date End Date Iglesia Messina MD [address] [place] [address] PCP - General 02/07/02 Ebony Hong, MORTGAGE ADVISOR.SALES EXPERT [address] [place] [address] Retail Consultant Internal Medicine 03/27/24 09/05/24 Tory Morales MORTGAGE ADVISOR.RIB BENDER [address] [place] [address] Retail Consultant Internal Medicine 07/11/24 Ebony Hong, MORTGAGE ADVISOR.SALES EXPERT [address] [place] [address] Retail Consultant Internal Medicine 09/06/24 Maxillofacial Prosthodontist Relationship Specialty Start Date End Date Iglesia Messina MD [address] [place] [address] PCP - General 02/07/02 Tory Morales, MORTGAGE ADVISOR.RIB BENDER [address] [place] [address] Retail Consultant Internal Medicine 07/11/24 Ebony Hong, MORTGAGE ADVISOR.SALES EXPERT [address] [place] [address] Retail Consultant Internal Medicine 09/06/24 Team Status: Active Member [...] October 13, 2024 End: October 13, 2024 Team Status: Inactive Member Role/Relationship Status Dates Dr. Iglesia Messina MD Primary Care Provider Active Start: October 26, 2024 End: October 26, 2024 Dr. Nidia Albright MD Attending Provider Active Start: October 26, 2024 End: October 26, 2024 Dr. Nidia Albright MD Referring Provider Active Start: October 26, 2024 End: October 26, 2024 Maxillofacial Prosthodontist Relationship Specialty Start Date End Date Iglesia Messina MD [address] [place], [place] [address] PCP - General 02/07/02 Tory Morales, MORTGAGE ADVISOR.RIB BENDER [address] [place], [place] [address] Retail Consultant Internal Medicine 07/11/24 Ebony Hong, MORTGAGE ADVISOR.SALES EXPERT [address] [place], [place] [address] Retail Consultant Internal Medicine 09/06/24 Goals (unrecognized section and content) Goals may [...] section and content) DATE CREATED AUTHOR 10/21/2024 [facility] DATE CREATED AUTHOR 'S ORGANIZ ATJOSE LUIS 11/06/2024 [facility] FOR RECORDS PERTAINING TO PATIENTS WHO [...] BE BASED ON THE PRIMARY CLINICAL RECORDS. [facility] [facility]. provides no warranty or guarantee of the accuracy or completeness of information in this document.
[2025-01-05 10:52] LABS: Hematocrit 39.7 % (37-47); Hemoglobin 13.2 g/dL (12.0-15.0); Immature Granulocytes Count 0.010 X10^3/uL (0.0-0.0); Mean Corp Hgb Conc 33.2 g/dL (32-36); Mean Corpuscular Volume 90.0 fL (81-99); Mean Platelet Vol. 10.5 fl (6.2-12.0); NRBC Flagged by Analyzer 0 % (0-5); Platelet Count 298 K/mm3 (150-450); RBC Distribution Width CV 13.0 % (11.6-14.6); RBC Distribution Width SD 43.0 fl (35.1-43.9); Red Blood Count 4.41 M/mm3 (4.2-5.4); White Blood Count 6.2 K/mm3 (4.4-11.0)
[2025-01-05 12:16] LABS: AST(SGOT) 24 U/L (<=31); Alanine Aminotransfer ALT/SGPT 18 U/L (<=34); Albumin, Serum 4.3 g/dL (3.4-4.8); Alkaline Phosphatase 77 U/L (35-104); Anion Gap 13 (5-15); BUN 10 mg/dL (4-19); BUN/Creat Ratio 13.1 RATIO (10-20); Calcium,Total 9.8 mg/dL (7.6-11.0); Carbon Dioxide 25.9 mmol/L (21.0-32.0); Chloride 102 mmol/L (98-108); Globulin 3.3 g/dL (2.2-4.2); Glucose 111 mg/dL (70-99); Potassium 4.0 mmol/L (3.3-5.1)
== END | disposition home or self-care (01) ==
LOC: MTLAB 07:10
PROVIDERS: PCP Internal Medicine; Referring Provider Internal Medicine Rheumatology; Visit Provider Internal Medicine Rheumatology
DX: M06.4 Inflammatory polyarthropathy (principal); Z79.899 Other long term (current) drug therapy
CPT/HCPCS: 36415; 80053; 85025